=== PATIENT | male | born 1955 | race Caucasian/White ===

== ENCOUNTER → 2016-12-31 | Day surgery (SDC) | payer OTHER ==
[~2016-12-31] VITALS: Ht 175.3 cm; Wt 78.4 kg
[~2016-12-31] MED LIST: ALBINS/ INH; ALBU0.08 INH; ALPR-411 PO; AMT25 PO; ASPCH81X PO; ATOR-26 PO; ATR25 PO; ATRIN INH; BUPR-79 PO; CHOL4POW11 PO; CIPR-255 PO; COLE1TAB5 PO; CRFUDL PO; CTP1 PO; CTP1CL PO; DEXA4INJ38 IM; DEXAMETHASONE; DEXTROSE 50% 50 ML SYR ONE; DIPH-416 PO; ENT3 PO; FERR325T PO; FLUC100T4 PO; FLUO20CA34 PO; FLUO20CA36 PO; FLUT1INH PO; HYD10 PO; HYDR-3124 PO; HYDR-3126 PO; Humalog SQ; INSDGI SC; INSU100I SC; INSUINJ5 SC; IPRASOL4 INH; ISOS60TA25 PO; LEVO-459 PO; LIDOCAINE HCL 2% 2 ML VIAL (20MG/ML) ONE; LISI-729 PO; LMTHP PO; LPR50X PO; MAGN64TA4 PO; MCRK20 PO; MESA1CAP2 PO; METO100T14 PO; METO50TA16 PO; MGNO400 PO; MIRT30TA PO; MIRT30TA2 PO; MISCCAP80 PO; MOME220A INH; NYSS/ PO; NYSS5 PO; OXYC-57 PO; OXYC7.5T62 PO; OXYC7.5T66 PO; PANC24002 PO; PANC6000 PO; PANT40TA PO; POTA1POW PO; POTA20TA13 PO; PPTBS PO; PROPOFOL IV EMULSION 10 MG/ML 20 ML VIAL IV ONE; RANI150T3 PO; RMR15 PO; SERT25TA PO; SLWMEC PO; SODIUM CHLORIDE 0.9% 500ML 500 ML IV ONE; SPRIN/30 INH; SULF-183 PO; TIOTCAP INH; VANC1CAP3 PO; VANC5CAP PO; VENL75CA PO; VNTHFA/IN INH
[2016-12-31 14:50] VITALS: Ht 175.3 cm; Wt 78.4 kg
--- NOTE | 2016-12-31 14:56 | Endo History and Physical ---
History & Physical Date of Service: Dec 31, 2016. Chief Complaint: Diarrhea, chest pain Referring Physician: History of Present Illness Diarrhea, chest pain Past Medical History Diabetes, Angioplasty/Stent, Endocrine Disorder, Gastrointestinal Disorder, Anxiety, Reflux, High Cholesterol, Heart Disease, Hypertension, COPD, Other, Depression, IN Past Surgical History Hx Cardiac Surgery: Yes (MULTIPLE HEART CATHS, 2 STENTS (2000 AND 2002)) Hx Internal Defibrillator: No Hx Pacemaker: No Hx Abdominal Surgery: No Hx Post-Op Nausea and Vomiting: No Hx Cancer Surgery: No Hx Thoracic Surgery: No Hx Orthopedic: Yes (RT ACL REPAIR, LT ELBOW CLOSED REDUCTION) Hx Urinary Tract Surgery: No Social History Smoking Status: Current Every Day Smoker Hx Substance Use: No Hx Alcohol Use: Yes (WEEKENDS/SOCIAL) Allergies Coded Allergies: Azathioprine (Verified Adverse Reaction, Unknown, RENAL COMPLICATIONS, 12/31) Current Medications Reported Home Medications Medications Dose Route/Sig Max Daily Dose Days Date Category Dose Instructions Xanax (Alprazolam) 0.5 Mg Tab 0.5 Mg PO HS PRN 04/08/16 Reported Duoneb (Ipratropium-Albuterol) 3 Ml Nebu 1 Treatment INH Q6H PRN 04/08/16 Reported Spiriva Handihaler (Tiotropium [place]) 18 Mcg/ Aerp 1 Cap INH QAM 04/08/16 Reported Asmanex 120 Metered Doses (Mometasone Furoate) 220 Mcg/ Aer 2 Puff INH QAM 04/08/16 Reported Zestril (Lisinopril) 5 Mg Tab 5 Mg PO QAM 04/08/16 Reported Imdur Ext Rel (Isosorbide Mononitrate) 60 Mg Ertab 60 Mg PO QAM 04/08/16 Reported Lopressor (Metoprolol Tartrate) 100 Mg Tab 100 Mg PO BID 04/08/16 Reported Aspirin Chewable (Aspirin) 81 Mg Chew 81 Mg PO QAM 04/08/16 Reported Protonix (Pantoprazole Sodium) 40 Mg Tab 40 Mg PO BID 04/08/16 Reported Colestipol Hcl 1 Gm Tab 2 Tab PO BID 04/08/16 Reported Lantus (Insulin Glargine) Vial 10-20 Units SC HS 04/08/16 Reported Apidra (Insulin Glulisine) 100 Unit/Ml Inj 5 Unit SC BID 04/08/16 Reported TAKES AT LUNCH AND DINNER Atrovent Hfa (Ipratropium [place]) 200 Puffs/3400 Mcg Aers 2 Puffs INH QID PRN 04/08/16 Reported Proventil 0.083% 2.5MG/3ML (Albuterol Sulfate) Nebu 2.5 Mg INH QID PRN 04/08/16 Reported Delzicol (Mesalamine) 400 Mg Cap 2 Cap PO TID 04/08/16 Reported Cortef (Hydrocortisone) 10 Mg Tab 2 Tab PO BID 04/08/16 Reported Lomotil (Diphenoxylate HCl/Atropine) Tab 1 Tab PO TID PRN 04/08/16 Reported Effexor Xr (Venlafaxine Hcl) 75 Mg Cap 1 Cap PO QAM 30 04/08/16 Reported Zoloft (Sertraline HCl) 25 Mg Tab 25 Mg PO QAM 04/08/16 Reported Zantac (Ranitidine HCl) 150 Mg Tab 150 Mg PO BID 04/08/16 Reported Physical Exam General Appearance: WD/WN, no apparent distress, + mild distress Respiratory/Chest: Auscultation: breath sounds normal Cardiovascular: Heart Auscultation: RRR Abdomen: Bowel Sounds: normal Assessment and Plan EGD/cscopy
--- NOTE | 2016-12-31 16:42 | GI REPORT ---
Procedure Date: 12/31/2016 2:53 PM Procedure: Upper GI endoscopy Indications: Heartburn Medicines: See the Anesthesia note for documentation of the administered medications Complications: No immediate complications. Estimated Blood Loss: Estimated blood loss: none. Procedure: Pre-Anesthesia Assessment: - ASA Grade Assessment: III - A patient with severe systemic disease. After obtaining informed consent, the endoscope was passed under direct vision. Throughout the procedure, the patient's blood pressure, pulse, and oxygen saturations were monitored continuously. The scope was introduced through the mouth, and advanced to the second part of duodenum. The upper GI endoscopy was accomplished without difficulty. The patient tolerated the procedure well. Findings: The examined esophagus was normal. The stomach was normal. The examined duodenum was normal. Biopsies done from duodenum. Recommendation: - Discharge patient to home. Maggi Keith M.D. Maggi Keith MD 12/31/2016 4:42:52 PM This report has been signed electronically. Note Initiated On: 12/31/2016 2:53 PM I attest to the content of the Intraoperative Record and orders documented therein, exceptions below
--- NOTE | 2016-12-31 16:45 | Discharge Instructions ---
Endoscopy Patient Instructions Date / Procedure(s) Performed Dec 31, 2016. Colonoscopy, EGD Allergy Information Coded Allergies: Azathioprine (Verified Adverse Reaction, Unknown, RENAL COMPLICATIONS, 12/31) Discharge Date / Findings Dec 31, 2016. Fissure in cecum, suggestive of collagenous colitis Medication Instructions Stopped Medication(s): COLESTIPOL. Restart Stopped Medication(s): Resume colestipol Provider Instructions Activity Restrictions - No exercising or heavy lifting for 24 hours. - Do not drink alcohol the day of the procedure. - Do not drive a car or operate machinery until the day after the procedure. - Do not make any important decisions or sign important papers in 24 hours after the procedure. Following Day: - Return to full activity which may include returning to work/school. Diet Start your diet with liquids and light foods (jello, soup, juice, toast). Then eat your usual diet if not nauseated. Treatment For Common After Affects For mild abdominal pain, bloating, or excessive gas: - Rest - Eat lightly - Lie on right side Follow-Up Information Follow-up with DR. MONTALVO as scheduled Anesthesia Information What You Should Know You have had a procedure that required some medicine to reduce anxiety and discomfort. This treatment is called moderate sedation. After receiving the treatment, you may be sleepy, but you will be able to breathe on your own. The effects of the treatment may last for several hours. Follow these instructions along with Activity/Diet recommendations noted above: * Do NOT do anything where dizziness or clumsiness would be dangerous. * Rest quietly at home today, then you can be up and about tomorrow. * Have a responsible person stay with you the rest of today. * You may have had an I.V. today. If so, you may take the dressing off later today. Recommendations Call your doctor if: * Trouble breathing * Continuous vomiting for more than 24 hours * Temperature above 101 degrees * Severe abdominal pain or bloating * Pain not relieved by pain medicine ordered * There is increased drainage or redness from any incision * A large amount of rectal bleeding greater than 2-3 tablespoons. (If you had a polyp/s removed or have hemorrhoids, a small amount of blood - from the rectum is to be expected.) * You have any unanswered questions or concerns. IN THE EVENT OF A SERIOUS EMERGENCY, GO TO THE NEAREST EMERGENCY ROOM Your discharge instructions were prepared by provider Maggi Hood. Patient Instructions Signature Page Nuno Urbina Patient (or Guardian) Signature/Date: I have read and understand the instructions given to me by my caregivers. Caregiver/RN/Doctor Signature/Date: The above-named patient and/or guardian has received patient instructions on this date. + Original Patient Signature Page (only) stays with chart. Please make copy for patient.
--- NOTE | 2016-12-31 17:00 | Anesthesiology Progress Note ---
Anesthesia Post Op Note Date & Time Dec 31, 2016 at 16:59 Vital Signs Pain Intensity: 3 Vital Signs Past 12 Hours Date Time Temp Pulse Resp B/P Pulse Ox O2 Delivery O2 Flow Rate FiO2 12/31/16 16:47 64 18 173/84 98 Room Air 12/31/16 16:29 63 18 133/76 98 Room Air 12/31/16 14:56 36.4 72 18 183/89 97 Room Air Notes Mental Status: alert / awake / arousable, participated in evaluation Pt Amnestic to Procedure: Yes Nausea / Vomiting: adequately controlled Pain: adequately controlled Airway Patency, RR, SpO2: stable & adequate BP & HR: stable & adequate Hydration State: stable & adequate Anesthetic Complications: no major complications apparent
[2016-12-31 17:19] VITALS: BP 170/82; PULSE 62; O2SAT 95
[2017-01-03 00:36] LABS: O&P GIARDIA AG NOT DETECTED (NOT DETECTED)
== END | disposition home or self-care (01) ==
LOC: C.GI 14:02
PROVIDERS: ATTEND Internal Medicine Gastroenterology
DX: R19.7 Diarrhea, unspecified (principal); K52.832 Lymphocytic colitis; R07.9 Chest pain, unspecified; E11.9 Type 2 diabetes mellitus without complications; I51.9 Heart disease, unspecified; I10 Essential (primary) hypertension; F17.200 Nicotine dependence, unspecified, uncomplicated; K21.9 Gastro-esophageal reflux disease without esophagitis; E78.00 Pure hypercholesterolemia, unspecified; J44.9 Chronic obstructive pulmonary disease, unspecified; F32.9 Major depressive disorder, single episode, unspecified; I25.2 Old myocardial infarction; Z98.61 Coronary angioplasty status; Z79.82 Long term (current) use of aspirin; Z79.4 Long term (current) use of insulin

== ENCOUNTER 2017-02-19 09:38 | Inpatient (IN) | payer OTHER ==
[~2017-02-19] VITALS: Ht 175.3 cm; Wt 71.2 kg
[~2017-02-19 09:38] MED LIST changes: -ALBINS/ INH; -ALPR-411 PO; -AMT25 PO; -ASPCH81X PO; -ATOR-26 PO; -ATR25 PO; -BUPR-79 PO; -CHOL4POW11 PO; -CIPR-255 PO; -CRFUDL PO; -CTP1 PO; -CTP1CL PO; -DEXA4INJ38 IM; -DEXAMETHASONE; -DEXTROSE 50% 50 ML SYR ONE; -ENT3 PO; -FERR325T PO; -FLUC100T4 PO; -FLUO20CA34 PO; -FLUO20CA36 PO; -FLUT1INH PO; -HYD10 PO; -HYDR-3124 PO; -HYDR-3126 PO; -Humalog SQ; -INSU100I SC; -ISOS60TA25 PO; -LEVO-459 PO; -LIDOCAINE HCL 2% 2 ML VIAL (20MG/ML) ONE; -LISI-729 PO; -LMTHP PO; -LPR50X PO; -MAGN64TA4 PO; -MCRK20 PO; -METO50TA16 PO; -MGNO400 PO; -MIRT30TA PO; -MIRT30TA2 PO; -MISCCAP80 PO; -NYSS/ PO; -NYSS5 PO; -OXYC-57 PO; -OXYC7.5T62 PO; -OXYC7.5T66 PO; -PANC24002 PO; -PANC6000 PO; -POTA1POW PO; -POTA20TA13 PO; -PPTBS PO; -PROPOFOL IV EMULSION 10 MG/ML 20 ML VIAL IV ONE; -RANI150T3 PO; -RMR15 PO; -SLWMEC PO; -SODIUM CHLORIDE 0.9% 500ML 500 ML IV ONE; -SPRIN/30 INH; -SULF-183 PO; -VANC1CAP3 PO; -VANC5CAP PO; -VNTHFA/IN INH
[2017-02-19 15:04] VITALS: BP 158/101; PULSE 66; TEMP 36.4; O2SAT 99
[2017-02-19] MEDS ORDERED: ACETAMINOPHEN 325 MG TAB PO PRN (15:30)
[2017-02-19] MEDS ORDERED: BUPR-79 PO (15:41)
[2017-02-19] MEDS ORDERED: VNTHFA/IN INH (15:41)
[2017-02-19] MEDS ORDERED: Humalog SQ (15:41)
[2017-02-19] MEDS ORDERED: CHOL4POW11 PO (15:41)
[2017-02-19 16:00] VITALS: BP 148/92; PULSE 64
--- NOTE | 2017-02-19 16:12 | Gastrointestinal Consultation ---
Gastrointestinal Consultation Date of Consultation: Feb 19, 2017 Consulting Physician: Say Reason for Consultation: diarrhea History of Present Illness Patient is a 61 year old male with past medical history significant for adrenal insufficiency, hypomagnesemia, osteonecrosis, ulcerative colitis, collagenous colitis HTN, COPD, hyperlipidemia, depression, anxiety who is a direct admission from Dr. Keith. At baseline, patient moves his bowels 8-10x daily with 3 episodes of nocturnal diarrhea. Stools are always liquid. Has recently had a flare of his symptoms. Stool for c.diff was negative on 02/17/17. He is currently moving bowels 10-12 times daily with 3-4 episodes of nocturnal diarrhea. Pt is colorblind but looks at stools, no BRB or black stools. Stools have been green/brown w/ odor. He mentions a 30lb weight loss over the past months suffering from these loose stools. There is no change in his abdominal pain. Mild RLQ pain that is relieved with BM. Denies any upper abdominal pain. No upper abdominal pain after PO intake. Reports nausea. No vomiting. Currently on steroids, lomotil and cholestyramine. Recently treated empirically for c.diff although no positive result. +tobacco use 1PPD + ETOH use 4-5 beers almost nightly + ASA use + steroid use Colonoscopy 12/31/16: fissure in the cecum, consistent with collagenous colitis, 2 mm polyp in ascending colon Family History Cancer Diabetes mellitus Heart disease Hypertension Social History Smoking Status: Current Every Day Smoker Alcohol Use: none Marital Status: Housing Status: lives with family Allergies Coded Allergies: Azathioprine (Verified Adverse Reaction, Unknown, RENAL COMPLICATIONS, 12/31) Current Medications Home Meds and Scripts Medications Dose Route/Sig Max Daily Dose Days Date Category Ventolin Hfa (Albuterol) 200 Puffs/35189 Mcg Aers 3-4 Puffs INH QID 02/19/17 Reported Breo Ellipta (Fluticasone Furoate-Vilanterol) 1 Inh Inh 1 Inha PO DAILY 02/19/17 Reported Lipitor (Atorvastatin Calcium) 80 Mg Tab 1 Tab PO DAILY 30 02/19/17 Reported [Humalog] 5 Units SQ BID 02/19/17 Reported Wellbutrin Sr (Bupropion HCl) 150 Mg Ertab 150 Mg PO DAILY 02/19/17 Reported Cortef (Hydrocortisone) 10 Mg Tab 1 Tab PO PM 02/19/17 Reported Questran (Cholestyramine) 4 Gm Pow 4 Gm PO QID 02/19/17 Reported Dexamethasone Sodium Phos (Dexamethasone Sod Phos) 4 Mg/Ml Inj 1 Dose IM DIRECTED 02/19/17 Reported Xanax (Alprazolam) 0.5 Mg Tab 0.5 Mg PO HS PRN 04/08/16 Reported Duoneb (Ipratropium-Albuterol) 3 Ml Nebu 1 Treatment INH QID 04/08/16 Reported Spiriva Handihaler (Tiotropium [place]) 18 Mcg/ Aerp 1 Cap INH QAM 04/08/16 Reported Zestril (Lisinopril) 5 Mg Tab 5 Mg PO QAM 04/08/16 Reported Imdur Ext Rel (Isosorbide Mononitrate) 60 Mg Ertab 60 Mg PO QAM 04/08/16 Reported Lopressor (Metoprolol Tartrate) 100 Mg Tab 100 Mg PO BID 04/08/16 Reported Aspirin Chewable (Aspirin) 81 Mg Chew 81 Mg PO QAM 04/08/16 Reported Protonix (Pantoprazole Sodium) 40 Mg Tab 40 Mg PO BID 04/08/16 Reported Lantus (Insulin Glargine) Vial 10-20 Units SC HS 04/08/16 Reported Atrovent Hfa (Ipratropium [place]) 200 Puffs/3400 Mcg Aers 2 Puffs INH QID PRN 04/08/16 Reported Proventil 0.083% 2.5MG/3ML (Albuterol Sulfate) Nebu 2.5 Mg INH QID PRN 04/08/16 Reported Cortef (Hydrocortisone) 10 Mg Tab 2 Tab PO DAILY 04/08/16 Reported Lomotil (Diphenoxylate HCl/Atropine) Tab 1 Tab PO TID PRN 04/08/16 Reported Zoloft (Sertraline HCl) 25 Mg Tab 100 Mg PO QAM 04/08/16 Reported Zantac (Ranitidine HCl) 150 Mg Tab 150 Mg PO BID 04/08/16 Reported Review of Systems Constitutional: No chills, No fever Respiratory: No cough Cardiac: No chest pain Abdomen: + diarrhea (even has to pass stool with urination), No GI bleeding, No constipation, No nausea, No pain, No vomiting Physical Exam Date Time Temp Pulse Resp B/P Pulse Ox O2 Delivery O2 Flow Rate FiO2 02/19/17 15:04 36.4 66 18 158/101 99 Room Air General Appearance: + mild distress (patient is tearful - reports his nephew just past away and he needs to get better for an international flight for ) Eyes: PERRL ENT: hearing grossly normal Neck: supple, trachea midline Respiratory/Chest: lungs clear, normal breath sounds, no respiratory distress, no accessory muscle use Cardiovascular: regular rate, rhythm, no edema, no gallop, no JVD, no murmur Abdomen: normal bowel sounds, soft, no organomegaly, no pulsatile mass, + tenderness (slight tenderness in RLQ, worse with palpation) Neurologic/Psych: alert, normal mood/affect, oriented x 3 Skin: normal color, no jaundice, warm/dry, no rash Laboratory Results Last 24 Hours Test 02/19/17 15:28 Impression Patient is a 61 year old male with acute worsening of chronic diarrhea with hx of collagenous colitis and ulcerative colitis on cholestyramine four times daily , lomotil three times daily and 30 mg of steroids with negative c.diff on . Differentials include microscopic colitis, infectious colitis, collagenous colitis, ulcerative colitis flare. We will proceed with colonoscopy tomorrow. Plan IVF for hydration Stool culture, O&P Clear liquid diet Colonoscopy tomorrow IV octreotide 50 mcg TID NPO after midnight continue outpatient dosing of hydrocortisone 20mg AM 10mg HS I have seen and examined the patient with Tiesha Hsu on 02/19 whose note reflects our findings and plan. Patient with a long history of microscopic colitis and steroid dependence with resultant adrenal insufficiency. On-going diarrhea despite steroids, colestid, and lomotil. Will do a colonoscopy to re-evaluate. He has a lot of stress with personal issues at home raising concern for possible superimposed IBS. Recent infectious w/u negative.
[2017-02-19] MEDS ORDERED: LEVALBUTEROL/IPRATROPIUM NEB INH PRN (16:15)
[2017-02-19] MEDS ORDERED: DEXTROSE 50% 50 ML SYR IV PRN (16:15)
[2017-02-19] MEDS ORDERED: ALPRAZOLAM 0.5 MG TAB PO PRN (16:15)
[2017-02-19] MEDS ORDERED: CLONIDINE HCL 0.1 MG TAB PO PRN (16:15)
[2017-02-19] MEDS ORDERED: IPRATROPIUM BROMIDE NEB SOLN 0.02% 2.5 ML VIAL INH PRN (16:15)
[2017-02-19] MEDS ORDERED: PHARMACY GLYCEMIC MGMT CONSULT PRN (16:15)
[2017-02-19] MEDS ORDERED: LEVALBUTEROL 1.25MG/0.5ML NEB INH PRN (16:15)
[2017-02-19] MEDS ORDERED: GLUCAGON FOR INJ 1 MG VIAL SQ PRN (16:15)
[2017-02-19] MEDS ORDERED: IPRATROPIUM BROMIDE NEB SOLN 0.02% 2.5 ML VIAL INH SCH (16:15)
[2017-02-19] MEDS ORDERED: GLUCOSE 40% GEL 15 GM TUBE PO PRN (16:15)
[2017-02-19] MEDS ORDERED: GLUCOSE 10 TABS/TUBE PO PRN (16:15)
--- NOTE | 2017-02-19 16:18 | History and Physical ---
History & Physical Date & Time of Service: Feb 19, 2017 at 16:18 Chief Complaint: Colitis Primary Care Physician: Tony Lin D.O. History of Present Illness Source: patient, family, clinic records 61 year old male with history of Ulcerative Colitis, Chronic Intermittent Prednisone Use, Adrenal Insufficiency, CAD, DM 2 on Insulin, HTN, COPD, presenting with persistent abdominal pain and diarrhea x 2 weeks at least Follows with Dr. Keith for Primary Care and Dr. Lin for PCP. Patient reports at least 2 weeks history of lower abdominal cramping and non bloody diarrhea. No nausea/vomiting, fever/chills. Symptoms reminiscent of Ulcerative Colitis flare up. He was advised to change Colestipol to powder form recently but with no improvement of symptoms. Appetite has been fair. Patient reports generalized malaise since symptoms started. He was advised by Dr. Keith to be directly admitted to the hospital. On exam, patient alert and conversant, but very emotional because of recent in the family and undergoing medical conditions. Patient reassured, and patient was grateful. Reports intermittent lower abdominal pain and continuous diarrhea. No chest pain, dyspnea, cough. No other symptoms. Past Medical/Surgical History Medical Problems: (1) Adrenal insufficiency Status: Chronic (2) ARF (acute renal failure) Status: Resolved (3) Diabetes Status: Chronic (4) Hypercholesteremia Status: Chronic (5) Hypertension Status: Chronic Surgical Problems: (1) H/O percutaneous transluminal coronary angioplasty Status: Resolved (2) Stented coronary artery Status: Resolved Family History Cancer Diabetes mellitus Heart disease Hypertension Social History Smoking Status: Current Every Day Smoker Alcohol Use: few beers/week Drug Use: none Marital Status: Housing status: lives alone Immunizations History of Influenza Vaccine: Yes Influenza Vaccine Date: Aug 20, 2013 History of Tetanus Vaccine?: Yes Tetanus Immunization Date: Aug 20, 2013 History of Pneumococcal: Yes History of Hepatitis B Vaccine: No Allergies Coded Allergies: Azathioprine (Verified Adverse Reaction, Unknown, RENAL COMPLICATIONS, 12/31) Home Medications Scheduled Albuterol Hfa (Ventolin Hfa), 3-4 PUFFS INH QID Aspirin (Aspirin Chewable), 81 MG PO QAM Atorvastatin (Lipitor), 1 TAB PO DAILY Bupropion (Wellbutrin Sr), 150 MG PO DAILY Cholestyramine (Questran), 4 GM PO QID Dexamethasone Sod Phos (Dexamethasone Sodium Phos), 1 DOSE IM DIRECTED Fluticasone Furoate-Vilanterol (Breo Ellipta), 1 INHA PO DAILY Hydrocortisone (Cortef), 2 TAB PO DAILY Hydrocortisone (Cortef), 1 TAB PO PM Insulin Glargine (Lantus), 10-20 UNITS SC HS Ipratropium-Albuterol (Duoneb), 1 TREATMENT INH QID Isosorbide Mononitrate Ext Rel (Imdur Ext Rel), 60 MG PO QAM Lisinopril (Zestril), 5 MG PO QAM Metoprolol Tartrate (Lopressor) (Lopressor), 100 MG PO BID Pantoprazole (Protonix), 40 MG PO BID Ranitidine Hcl (Zantac), 150 MG PO BID Sertraline (Zoloft), 100 MG PO QAM Tiotropium [place] (Spiriva Handihaler), 1 CAP INH QAM [Humalog], 5 UNITS SQ BID Scheduled PRN Albuterol Soln (Proventil 0.083% 2.5MG/3ML), 2.5 MG INH QID PRN for Shortness of Breath Alprazolam (Xanax), 0.5 MG PO HS PRN for Sleep Diphenoxylate/Atropine (Lomotil), 1 TAB PO TID PRN for Diarrhea Ipratropium [place] (Atrovent Hfa), 2 PUFFS INH QID PRN for Shortness of Breath Review of Systems Constitutional- no fever; (+) weight loss Eyes- no acute visual changes ENT- no sinus drainage; no pharyngitis Pulmonary- no cough, no wheezing, no shortness of breath Cardiac- no chest pain, no palpitations, no orthopnea, no dependent edema GI- (+) as noted above - no dysuria, no hematuria Musculoskeletal- no arthralgias, no myalgias Derm- no rashes, no new skin lesions, no changing skin lesions Hematologic- no unusual bruising, no unusual bleeding Lymphatics- no adenopathy Endocrine- no polyuria or polydipsia; no heat or cold intolerance Neuro- no headaches, no focal neurologic symptoms Psych- no anxiety, no depression Physical Exam Vital Signs Date Time Temp Pulse Resp B/P Pulse Ox O2 Delivery O2 Flow Rate FiO2 02/19/17 16:00 64 148/92 02/19/17 15:04 36.4 66 18 158/101 99 Room Air General Appearance: WD/WN, no apparent distress Head: normocephalic, atraumatic Eyes: normal inspection, PERRL, sclerae normal ENT: normal ENT inspection, hearing grossly normal, TMs normal, pharynx normal Neck: supple, no adenopathy, thyroid normal, no JVD, trachea midline Respiratory/Chest: chest non-tender, lungs clear, normal breath sounds, no respiratory distress, no accessory muscle use Cardiovascular: regular rate, rhythm, no edema, no JVD, no murmur, normal peripheral pulses Abdomen/GI: normal bowel sounds, non tender, soft Back: normal inspection, no CVA tenderness Extremities/Musculoskelatal: normal inspection, no calf tenderness, no pedal edema, normal range of motion Neurologic/Psych: business support 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 II-XII nml as tested, no motor/sensory deficits, alert, normal mood/affect, normal reflexes, oriented x 3, + pertinent finding (no suicidal ideations) Skin: normal color, warm/dry, no rash Diagnostics Laboratory Results Results Past 24 Hours Test 02/19/17 15:28 Range/Units Microbiology Results 02/19/17 Shiga Toxin Test, Ordered Pending 02/19/17 Stool Culture, Ordered Pending 02/19/17 C.difficile Toxin B Gene (PCR), Barbi Batch Pending Impression Assessment and Plan 61 year old male with history of Ulcerative Colitis, Chronic Intermittent Prednisone Use, Adrenal Insufficiency, CAD, DM 2 on Insulin, HTN, COPD, presenting with persistent abdominal pain and diarrhea x 2 weeks at least POSSIBLE ULCERATIVE COLITIS FLARE UP check stool cultures and C diff Stool test IV fluids, clear liquids may need to increase Hydrocortisone dose will consult GI ADRENAL INSUFFICIENCY likely from chronic intermittent prednisone courses BP stable continue usual Hydrocortisone 20mg in am, 10mg in PM may need to increase dose in light of Ulcerative colitis flare up will discuss with GI WORSENING DEPRESSION recent in the family, medical condition will consult Psych HISTORY OF CAD no cardiac symptoms continue Aspirin, Metoprolol, Lisinopril, ISMN hold Statin DM 2 usually on Lantus and Apidra ISS for now while on clear liquids Pharm consult HTN continue Aspirin, Metoprolol, Lisinopril, ISMN PRN Clonidine COPD not in exacerbation continue Spiriva, Breo PRN nebs Full Code SCDs for DVT prophylaxis as patient has UC flare Disposition anticipate to d/c home when medically stable VTE Prophylaxis VTE Risk Assessment Done? Y/N: Yes Risk Level: Moderate
[2017-02-19] MEDS ORDERED: PATIENT'S HEIGHT AND/OR WEIGHT NEEDED SCH (16:30)
[2017-02-19 16:33] LABS: BASO % 0.2 %; BASO ABS # 0.02 K/uL (0-0.2); COMPLETE YES; EOS % 1.6 %; IG% 1.2 %; LYMPH % 26.7 %; LYMPH ABS # 2.79 K/uL (1.2-3.4); MEAN CELL VOLUME 86.3 fL (80-100); MEAN CORPUSCULAR HGB CONC 35.9 g/dl (32-36); MEAN PLATELET VOLUME 10.5 fL (7.4-10.4); MONO % 9.4 %; NEUT % 60.9 %; PLATELET COUNT 158 K/uL (130-400); WHITE BLOOD COUNT 10.45 K/uL (4.8-10.8)
[2017-02-19] MEDS: SODIUM CHLORIDE 0.9% 1000ML 1,000 ML IV SCH (16:40)
[2017-02-19 16:59] VITALS: Ht 175.3 cm; Wt 71.2 kg
[2017-02-19] MEDS ORDERED: ALBUT/IPRATROP 3MG/0.5MG NEB 3 ML VIAL INH SCH (17:00)
[2017-02-19] MEDS: MoRPHine SULFATE 4 MG/ML 1 ML CARP\\VIAL IV PRN ×2 (17:06→21:13)
[2017-02-19 17:08] LABS: BUN/CREATININE RATIO 5.5 (10-20); CALCIUM 9.3 mg/dl (8.5-10.1); CREATININE 1.1 mg/dl (0.60-1.40); MAGNESIUM 1.5 mg/dl (1.8-2.4); POTASSIUM 4.4 mmol/L (3.5-5.1)
[2017-02-19] MEDS: CHOLESTYRAMINE LIGHT 4 GM PKT PO SCH ×2 (17:12→21:18)
[2017-02-19] MEDS ORDERED: BISACODYL 5 MG TABEC PO ONE (17:30)
[2017-02-19] MEDS ORDERED: POLYETHYLENE (MIRALAX) 17 GM PACK PO ONE ×2 (17:30→21:00)
[2017-02-19] MEDS: INSULIN ASPART 100 UNITS/ML 3 ML PEN SC SCH ×2 (18:35→21:09)
[2017-02-19] MEDS ORDERED: MAGNESIUM SULFATE 1GM / D5W 1 GM in PREMIXED IN D5W 100 ML IV ONE (19:00)
[2017-02-19] MEDS ORDERED: HYDROCORTISONE 10 MG TAB PO SCH (21:00)
[2017-02-19] MEDS ORDERED: INSULIN GLARGINE SOLOSTAR 100 UNITS/ML 3 ML PEN SC ONE (21:00)
[2017-02-19] MEDS ORDERED: ALBUTEROL 0.083% NEBU SOLN 3 ML VIAL INH SCH (21:00)
[2017-02-19 21:15] VITALS: BP 147/89; PULSE 73
[2017-02-19] MEDS: RANITIDINE HCL 150 MG TAB PO SCH (21:17)
[2017-02-19] MEDS: METOPROLOL TARTRATE 100 MG TAB PO SCH (21:18)
[2017-02-19] MEDS: PANTOprazole SOD 40 MG TAB PO SCH (21:18)
[2017-02-19] MEDS ORDERED: PNEUMOCOCCAL ADMINISTRATION CHARGE ONE (21:45)
[2017-02-19] MEDS ORDERED: PNEUMOCOCCAL POLYSACCHARIDES 25 MCG/0.5 ML VIAL/SYR IM. ONE (21:45)
[2017-02-19 23:13] VITALS: BP 138/76; PULSE 67; TEMP 36.6; O2SAT 93
[2017-02-20] VITALS (8 sets, daily range): BP systolic 116–143; BP diastolic 70–80; PULSE 53–88; TEMP 36.3–36.6; O2SAT 93–99
[2017-02-20] MEDS: MoRPHine SULFATE 4 MG/ML 1 ML CARP\\VIAL IV PRN ×6 (01:06→21:11)
[2017-02-20] MEDS: SODIUM CHLORIDE 0.9% 1000ML 1,000 ML IV SCH ×4 (01:06→23:45)
[2017-02-20] MEDS ORDERED: INSULIN ASPART 100 UNITS/ML 3 ML PEN SC ONE (02:00)
[2017-02-20] MEDS: INSULIN ASPART 100 UNITS/ML 3 ML PEN SC SCH ×5 (06:00→21:26)
[2017-02-20 06:25] LABS: BASO % 0.3 %; BASO ABS # 0.02 K/uL (0-0.2); COMPLETE YES; EOS % 1.8 %; HEMATOCRIT 41.6 % (42-52); IG% 0.8 %; LYMPH % 20.9 %; LYMPH ABS # 1.64 K/uL (1.2-3.4); MEAN CELL VOLUME 89.5 fL (80-100); MEAN CORPUSCULAR HEMOGLOBIN 30.5 pg (25-34); MEAN CORPUSCULAR HGB CONC 34.1 g/dl (32-36); MEAN PLATELET VOLUME 10.3 fL (7.4-10.4); MONO % 8.9 %; NEUT % 67.3 %; PLATELET COUNT 149 K/uL (130-400); RED BLOOD COUNT 4.65 M/uL (4.7-6.1); WHITE BLOOD COUNT 7.83 K/uL (4.8-10.8)
[2017-02-20 06:33] LABS: ESTIMATED AVERAGE GLUCOSE 154 mg/dl; HA1C FLAG Normal (Normal)
[2017-02-20 06:58] LABS: BUN/CREATININE RATIO 5.2 (10-20); CALCIUM 8.5 mg/dl (8.5-10.1); MAGNESIUM 1.8 mg/dl (1.8-2.4); POTASSIUM 4.3 mmol/L (3.5-5.1)
[2017-02-20] MEDS: RANITIDINE HCL 150 MG TAB PO SCH ×2 (08:45→21:20)
[2017-02-20] MEDS: CHOLESTYRAMINE LIGHT 4 GM PKT PO SCH ×4 (08:45→21:20)
[2017-02-20] MEDS: TIOTROPIUM BROMIDE 5 PUFF/90 MCG INH INH SCH (08:46)
[2017-02-20] MEDS ORDERED: BuPROPion SR 150 MG TABCR PO SCH (09:00)
[2017-02-20] MEDS: METOPROLOL TARTRATE 100 MG TAB PO SCH ×2 (09:00→21:00)
[2017-02-20] MEDS ORDERED: SERTRALINE HCL 50 MG TAB PO SCH (09:00)
--- NOTE | 2017-02-20 12:20 | Pharmacy Progress Note ---
Glycemic Control Intl Consult Date of Service Feb 20, 2017. Scope Glycemic Pharmacist consulted for glycemic control and to write orders per [facility] inpatient glycemic control protocol Objective Weight (Kilograms): 71.200 Accuchecks BSG (last 24hrs): Test 02/19/17 16:24 02/19/17 16:46 02/19/17 20:38 02/19/17 23:40 Random Glucose 95 mg/dl (70-99) Bedside Glucose 91 mg/dl (70-99) 255 mg/dl (70-99) 65 mg/dl (70-99) Test 02/20/17 00:00 02/20/17 03:53 02/20/17 06:05 Bedside Glucose 78 mg/dl (70-99) 89 mg/dl (70-99) 83 mg/dl (70-99) Random Glucose 89 mg/dl (70-99) Laboratory Data (last 24hrs) Test 02/19/17 16:24 02/20/17 06:05 Anion Gap 11.0 mmol/L 7.0 mmol/L BUN/Creatinine Ratio 5.5 5.2 Blood Urea Nitrogen 6 mg/dl 5 mg/dl Creatinine 1.10 mg/dl 1.00 mg/dl Potassium Level 4.4 mmol/L 4.3 mmol/L Sodium Level 137 mmol/L 140 mmol/L White Blood Count 10.45 K/uL 7.83 K/uL Red Blood Count 5.10 M/uL 4.65 M/uL Hemoglobin 15.8 g/dL 14.2 g/dL Hematocrit 44.0 % 41.6 % Mean Corpuscular Volume 86.3 fL 89.5 fL Mean Corpuscular Hemoglobin 31.0 pg 30.5 pg Mean Corpuscular Hemoglobin Concent 35.9 g/dl 34.1 g/dl Platelet Count 158 K/uL 149 K/uL Mean Platelet Volume 10.5 fL 10.3 fL Neutrophils (%) (Auto) 60.9 % 67.3 % Lymphocytes (%) (Auto) 26.7 % 20.9 % Monocytes (%) (Auto) 9.4 % 8.9 % Eosinophils (%) (Auto) 1.6 % 1.8 % Basophils (%) (Auto) 0.2 % 0.3 % Neutrophils # (Auto) 6.36 K/uL 5.27 K/uL Lymphocytes # (Auto) 2.79 K/uL 1.64 K/uL Monocytes # (Auto) 0.98 K/uL 0.70 K/uL Eosinophils # (Auto) 0.17 K/uL 0.14 K/uL Basophils # (Auto) 0.02 K/uL 0.02 K/uL Hemoglobin A1c 7.0 % HbA1c Test 02/20/17 06:05 Hemoglobin A1c 7.0 % (4.5-5.6) H Recent Pertinent Medications Outpatient Anti-diabetic Regimen: * Lantus 10-20 units SC qHS * Humalog 5 units with lunch and dinner * A1c = 7.0 % on 02/20/17 The patient is currently receiving: * Basal insulin: None * Correctional Insulin: Novolog Correction per scale ACHS Goal Range: Low 120 mg/dL - High 160 mg/dL Correction Factor: 35 mg/dL/unit * Prandial insulin: Per carb ratio of 1 unit per 15 grams CHO consumed Risk Factors for Insulin Resistance: * Steroids: Hydrocortisone 20 mg po qAM, 10 mg qPM (home dose) * Diet: T2DM/clear liquid Assessment & Plan ASSESSMENT: * ADA & AACE recommend a goal blood sugar range 140-180 mg/dl for the majority of critically ill & non-critically ill patients. However, more stringent targets may be selected in individual cases. 02/20/17 * 61 yo M with T2DM and adequate outpatient control per HbA1c * BSG increased from 91 to 255 mg/dL yesterday after pt consumed 78g CHO. May need to tighten CHO ratio, but as pt was NPO this AM and only ate 13 g CHO at lunch will leave for now. * BSG's decreased significantly overnight despite no Lantus administered in- house. 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 Will continue HS dosing but at significantly reduced amounts, with high BSG parameters * Will loosen correction factor for now 2nd BSG's decreasing overnight PLAN FOR INPATIENT GLYCEMIC CONTROL: * Basal insulin with LANTUS units SQ HS per BSG * 0 units for BSG < 140 mg/dL * 5 units for BSG 140-199 mg/dL * 10 units for BSG 200 mg/dL or greater * Correctional Insulin with NOVOLOG per scale ACHS or Q6hrs while NPO * Goal Range: Low 120 mg/dL - High 160 mg/dL * Loosen Correction Factor: 40 mg/dL/unit * Nutritional / Prandial insulin per carb ratio of 1 unit per 15 grams CHO consumed * Please note that the plan above was derived based on current level of insulin resistance and hospital stress. These recommendations are appropriate for inpatient admission only. Plan of care upon discharge will need to be reassessed to avoid potential outpatient hypo/hyperglycemia. Thank you.
[2017-02-20] MEDS ORDERED: LIDOCAINE HCL 2% 2 ML VIAL (20MG/ML) ONE (13:25)
[2017-02-20] MEDS ORDERED: PROPOFOL IV EMULSION 10 MG/ML 20 ML VIAL IV ONE (13:25)
--- NOTE | 2017-02-20 13:45 | Anesthesiology Progress Note ---
Anesthesia Post Op Note Date & Time Feb 20, 2017 at 13:45 Vital Signs Pain Intensity: 0 Vital Signs Past 12 Hours Date Time Temp Pulse Resp B/P Pulse Ox O2 Delivery O2 Flow Rate FiO2 02/20/17 13:27 61 20 134/79 96 Room Air 02/20/17 13:11 67 20 120/69 98 Room Air 02/20/17 12:37 36.6 53 20 141/80 98 Room Air 02/20/17 12:33 36.6 53 20 141/80 98 Room Air 02/20/17 10:02 97 Room Air 02/20/17 08:47 Room Air 02/20/17 07:52 36.5 58 20 132/74 97 Room Air Notes Mental Status: alert / awake / arousable, participated in evaluation Pt Amnestic to Procedure: Yes Nausea / Vomiting: adequately controlled Pain: adequately controlled Airway Patency, RR, SpO2: stable & adequate BP & HR: stable & adequate Hydration State: stable & adequate Anesthetic Complications: no major complications apparent Pt did well.
[2017-02-20] MEDS: ISOSORBIDE MONONITRATE 60 MG TABCR PO SCH (14:12)
[2017-02-20] MEDS: ASPIRIN 81 MG CHEW PO SCH (14:12)
[2017-02-20] MEDS: LISINOPRIL 5 MG TAB PO SCH (14:13)
[2017-02-20] MEDS: PANTOprazole SOD 40 MG TAB PO SCH ×2 (14:14→21:19)
[2017-02-20] MEDS: HYDROCORTISONE 10 MG TAB PO SCH ×2 (14:14→21:19)
--- NOTE | 2017-02-20 14:32 | Psychiatric Consultation ---
Consultation Date of Consultation Feb 20, 2017. Identifying Data Nuno Urbina is a 61-year-old male who currently lives in [place]. Mr. Urbina was admitted on 02/19/17 for abdominal pain and chronic diarrhea. Consult is by Dr. Rider for depression. Chief Complaint "too much has gone wrong". History of Present Illness Mr. Urbina states that he hasn't really ever thought about seeing a therapist but admittedly feels deflated after his nephew's in [place] last weekend. His sister's only child was a professional wood filler and suddenly of an NE at the age of 20. She is currently in [facility] [place] to "bring him home", meaning [place] where he is also from. Mr. Urbina' was diagnosed with breast cancer last year and has developed infections from surgeries and lost her job. Their disability was denied. 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 The are working with an commercial litigation attorney but he feels it's hopeless in the sense that it's a "racket" where commercial litigation attorney takes 25%. He admittedly stopped his Wellbutrin about a month ago as he didn't feel that it was helping. He is unsure how long he has been on his current dose of Zoloft and would prefer to be back on Prozac which helped him through a "rough time" many years ago. 22, no suicidal ideation Past Psychiatric History Current OP Treatment: no current treatment Prior OP Treatment: no prior treatment Access to a Gun: Yes Suicide Attempts: No Past Medication Trials as above per PCP/PA Past Medical/Surgical History (1) Coronary artery disease (2) Hypercholesteremia (3) Hypertension (4) Diabetes (5) Adrenal insufficiency (6) Stented coronary artery (7) H/O percutaneous transluminal coronary angioplasty Allergies Allergies: Coded Allergies: Azathioprine (Verified Adverse Reaction, Unknown, RENAL COMPLICATIONS, 12/31) Home Medications Scheduled Albuterol Hfa (Ventolin Hfa), 3-4 PUFFS INH QID Aspirin (Aspirin Chewable), 81 MG PO QAM Atorvastatin (Lipitor), 1 TAB PO DAILY Bupropion (Wellbutrin Sr), 150 MG PO DAILY Cholestyramine (Questran), 4 GM PO QID Dexamethasone Sod Phos (Dexamethasone Sodium Phos), 1 DOSE IM DIRECTED Fluticasone Furoate-Vilanterol (Breo Ellipta), 1 INHA PO DAILY Hydrocortisone (Cortef), 2 TAB PO DAILY Hydrocortisone (Cortef), 1 TAB PO PM Insulin Glargine (Lantus), 10-20 UNITS SC HS Ipratropium-Albuterol (Duoneb), 1 TREATMENT INH QID Isosorbide Mononitrate Ext Rel (Imdur Ext Rel), 60 MG PO QAM Lisinopril (Zestril), 5 MG PO QAM Metoprolol Tartrate (Lopressor) (Lopressor), 100 MG PO BID Pantoprazole (Protonix), 40 MG PO BID Ranitidine Hcl (Zantac), 150 MG PO BID Sertraline (Zoloft), 100 MG PO QAM Tiotropium [place] (Spiriva Handihaler), 1 CAP INH QAM [Humalog], 5 UNITS SQ BID Scheduled PRN Albuterol Soln (Proventil 0.083% 2.5MG/3ML), 2.5 MG INH QID PRN for Shortness of Breath Alprazolam (Xanax), 0.5 MG PO HS PRN for Sleep Diphenoxylate/Atropine (Lomotil), 1 TAB PO TID PRN for Diarrhea Ipratropium [place] (Atrovent Hfa), 2 PUFFS INH QID PRN for Shortness of Breath Family History Cancer Diabetes mellitus Heart disease Hypertension History of Suicide: No Psychiatric History: No Alcohol Use Alcohol Use In Past 12 Months: Yes ("a few" beers a week, occasional 4-5 in a night) Smoking Use Smoking Status: Current Every Day Smoker Substance History denied Personal History Lives in: 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 Examination Vital Signs Vital Signs Past 12 Hours Date Time Temp Pulse Resp B/P Pulse Ox O2 Delivery O2 Flow Rate FiO2 02/20/17 14:06 36.5 53 22 127/80 97 Room Air 02/20/17 13:27 61 20 134/79 96 Room Air 02/20/17 13:11 67 20 120/69 98 Room Air 02/20/17 12:37 36.6 53 20 141/80 98 Room Air 02/20/17 12:33 36.6 53 20 141/80 98 Room Air 02/20/17 10:02 97 Room Air 02/20/17 08:47 Room Air 02/20/17 07:52 36.5 58 20 132/74 97 Room Air Laboratory Results Last 24 Hours Test 02/19/17 16:24 02/19/17 16:46 02/19/17 20:38 02/19/17 21:40 White Blood Count 10.45 K/uL Red Blood Count 5.10 M/uL Hemoglobin 15.8 g/dL Hematocrit 44.0 % Mean Corpuscular Volume 86.3 fL Mean Corpuscular Hemoglobin 31.0 pg Mean Corpuscular Hemoglobin Concent 35.9 g/dl Platelet Count 158 K/uL Mean Platelet Volume 10.5 fL Neutrophils (%) (Auto) 60.9 % Lymphocytes (%) (Auto) 26.7 % Monocytes (%) (Auto) 9.4 % Eosinophils (%) (Auto) 1.6 % Basophils (%) (Auto) 0.2 % Neutrophils # (Auto) 6.36 K/uL Lymphocytes # (Auto) 2.79 K/uL Monocytes # (Auto) 0.98 K/uL Eosinophils # (Auto) 0.17 K/uL Basophils # (Auto) 0.02 K/uL RDW Standard Deviation 48.7 fL RDW Coefficient of Variation 15.2 % Immature Granulocyte % (Auto) 1.2 % Immature Granulocyte # (Auto) 0.13 K/uL Sodium Level 137 mmol/L Potassium Level 4.4 mmol/L Chloride Level 107 mmol/L Carbon Dioxide Level 19 mmol/L Anion Gap 11.0 mmol/L Blood Urea Nitrogen 6 mg/dl Creatinine 1.10 mg/dl Est Creatinine Clear Calc Drug Dose 70.6 ml/min Estimated GFR () 83.5 Estimated GFR (Non- 72.1 BUN/Creatinine Ratio 5.5 Random Glucose 95 mg/dl Calcium Level 9.3 mg/dl Phosphorus Level 3.0 mg/dl Magnesium Level 1.5 mg/dl Total Bilirubin 0.4 mg/dl Aspartate Amino Transf (AST/SGOT) 85 U/L Alanine Aminotransferase (ALT/SGPT) 57 U/L Alkaline Phosphatase 100 U/L Total Protein 6.8 gm/dl Albumin 3.4 gm/dl Globulin 3.4 gm/dl Albumin/Globulin Ratio 1.0 Chemistry Specimen Hemolysis Bedside Glucose 91 mg/dl 255 mg/dl Test 02/19/17 23:40 02/20/17 00:00 02/20/17 03:53 02/20/17 06:05 Bedside Glucose 65 mg/dl 78 mg/dl 89 mg/dl 83 mg/dl White Blood Count 7.83 K/uL Red Blood Count 4.65 M/uL Hemoglobin 14.2 g/dL Hematocrit 41.6 % Mean Corpuscular Volume 89.5 fL Mean Corpuscular Hemoglobin 30.5 pg Mean Corpuscular Hemoglobin Concent 34.1 g/dl Platelet Count 149 K/uL Mean Platelet Volume 10.3 fL Neutrophils (%) (Auto) 67.3 % Lymphocytes (%) (Auto) 20.9 % Monocytes (%) (Auto) 8.9 % Eosinophils (%) (Auto) 1.8 % Basophils (%) (Auto) 0.3 % Neutrophils # (Auto) 5.27 K/uL Lymphocytes # (Auto) 1.64 K/uL Monocytes # (Auto) 0.70 K/uL Eosinophils # (Auto) 0.14 K/uL Basophils # (Auto) 0.02 K/uL RDW Standard Deviation 51.2 fL RDW Coefficient of Variation 15.6 % Immature Granulocyte % (Auto) 0.8 % Immature Granulocyte # (Auto) 0.06 K/uL Sodium Level 140 mmol/L Potassium Level 4.3 mmol/L Chloride Level 111 mmol/L Carbon Dioxide Level 22 mmol/L Anion Gap 7.0 mmol/L Blood Urea Nitrogen 5 mg/dl Creatinine 1.00 mg/dl Est Creatinine Clear Calc Drug Dose 77.6 ml/min Estimated GFR () 93.7 Estimated GFR (Non- 80.9 BUN/Creatinine Ratio 5.2 Random Glucose 89 mg/dl Estimated Average Glucose 154 mg/dl Hemoglobin A1c 7.0 % Calcium Level 8.5 mg/dl Phosphorus Level 3.0 mg/dl Magnesium Level 1.8 mg/dl Total Bilirubin 0.4 mg/dl Aspartate Amino Transf (AST/SGOT) 48 U/L Alanine Aminotransferase (ALT/SGPT) 46 U/L Alkaline Phosphatase 83 U/L Total Protein 5.8 gm/dl Albumin 2.9 gm/dl Globulin 2.9 gm/dl Albumin/Globulin Ratio 1.0 Hepatitis C Antibody NEG Test 02/20/17 12:09 Bedside Glucose 78 mg/dl Mental Examination During interview pt is: alert and oriented Appearance: appropriately groomed Eye contact is: good Motor behavior is: no abnormal motor movements Speech: normal in rate, rhythm & volume Affect: depressed Mood is: depressed Thought process: clear, coherent Thought content: reality based without delusions Suicidal thought are: denied Homicidal thoughts are: denied Hallucinations: denies auditory, denies visual Cognition: memory grossly intact, attention grossly intact, language grossly intact Intelligence estimated to be: consistent with level of education Insight: fair Judgement: fair Impression / Recommendations Impression 61 yo male with a history of depression who presents with positive depression screen in setting of multiple stressors. Recommendations (1) Major depressive disorder, recurrent episode with anxious distress d/c Wellbutrin as wasn't taking on admission taper Zoloft to 50 mg for 2 days then d/c, unsure if any contribution to diarrhea start Prozac 10 mg today and increase to 20 mg tomorrow, likely to need further titration on outpatient basis patient signed release for liaison to communicate with around securing weapons as general safety measure, also to educate on med changes he is currently declining outpatient therapy referral [facility] for PCP as current psych med prescriber would avoid Xanax as prn for sleep
[2017-02-20] MEDS ORDERED: FLUOXETINE HCL 10 MG CAP PO ONE (15:00)
--- NOTE | 2017-02-20 15:05 | GI REPORT ---
Procedure Date: 02/20/2017 12:48 PM Procedure: Colonoscopy Indications: Chronic diarrhea, Microscopic colitis, Follow-up of long standing microscopic colitis Medicines: See the Anesthesia note for documentation of the administered medications Complications: No immediate complications. Estimated blood loss: Minimal. Estimated Blood Loss: Estimated blood loss was minimal. Procedure: Pre-Anesthesia Assessment: - Prior to the procedure, a History and Physical was performed, and patient medications, allergies and sensitivities were reviewed. The patient's tolerance of previous anesthesia was reviewed. - The risks and benefits of the procedure and the sedation options and risks were discussed with the patient. All questions were answered and informed consent was obtained. - Patient identification and proposed procedure were verified prior to the procedure by the physician and the nurse. The procedure was verified in the pre-procedure area in the procedure room. - Mental Status Examination: alert and oriented. Airway Examination: normal oropharyngeal airway and neck mobility. Respiratory Examination: clear to auscultation. CV Examination: normal. Abdominal Examination: bowel sounds present, abdomen soft and non-tender, no masses or organomegaly noted. - ASA Grade Assessment: III - A patient with severe systemic disease. After I obtained informed consent, the scope was passed under direct vision. Throughout the procedure, the patient's blood pressure, pulse, and oxygen saturations were monitored continuously. The Scope was introduced through the anus and advanced to the terminal ileum. The colonoscopy was performed without difficulty. The patient tolerated the procedure well. The quality of the bowel preparation was good. Findings: The perianal and digital rectal examinations were normal. Pertinent negatives include normal sphincter tone and no palpable rectal lesions. The terminal ileum appeared normal. An area of erythematous and granular mucosa was found in the entire colon. Biopsies were taken with a cold forceps for histology. Verification of patient identification for the specimen was done by the physician and nurse using the patient's name and date. Estimated blood loss was minimal. A few small-mouthed diverticula were found in the sigmoid colon. The retroflexed view of the distal rectum and anal verge was normal and showed no anal or rectal abnormalities. Impression: - The examined portion of the ileum was normal. - Erythematous and granular mucosa in the entire examined colon. Biopsied. - Diverticulosis in the sigmoid colon. - The distal rectum and anal verge are normal on retroflexion view. Recommendation: - Await pathology results. - [facility]. Birdie Deal D.O. Birdie Deal, 02/20/2017 3:04:22 PM This report has been signed electronically. Note Initiated On: 02/20/2017 12:48 PM I attest to the content of the Intraoperative Record and orders documented therein, exceptions below
[2017-02-20] MEDS: OCTREOTIDE ACETATE 100 MCG/ML VIAL SQ SCH ×2 (15:06→21:40)
--- NOTE | 2017-02-20 15:36 | Progress Note ---
Progress Note Date of Service Feb 20, 2017. Progress Note Continue IV octreotide 50mcg TID while admitted --> to be given as an outpatient subcutaneous Increase PO steroids hydrocortisone 20mg BID
--- NOTE | 2017-02-20 17:29 | Progress Note ---
Internal Med Progress Note Date of Service: Feb 20, 2017. Provider Documentation: SUBJECTIVE: just came from colonoscopy says has some abdominal discomfort says has some imbalance having diarrhea OBJECTIVE: Vital Signs-as noted below Exam: General-alert and oriented x 3 ENT-normal hearing Neck-no neck masses Lungs-cta b/l no wheezing no crackles Heart-s1 and s2 heard regular rate and rhythm no murmurs' Abdomen-soft bowel sounds present mild diffuse abdominal discomfort no distension Extremities-no edema no erythema Neuro-alert and awake moves extremities Lab data as noted below. ASSESSMENT & PLAN: 61 year old male with history of Ulcerative Colitis, Chronic Intermittent Prednisone Use, Adrenal Insufficiency, CAD, DM 2 on Insulin, HTN, COPD, presenting with persistent abdominal pain and diarrhea x 2 weeks at least POSSIBLE ULCERATIVE COLITIS FLARE UP c diff negative stool cx negative so far on iv fluids and steroids GI on board s/p coloscopy today and seems unremarkable on Sandostatin further recommendations as per GI ADRENAL INSUFFICIENCY Most likely from chronic intermittent prednisone courses On home Hydrocortisone 20mg in am, 10mg in PM will monitor. WORSENING DEPRESSION recent in the family, medical condition consulted and appreciate inputs plan to taper off Zoloft and start on Prozac. HISTORY OF CAD stable on Aspirin, Metoprolol, Lisinopril, ISMN holding Statin DM 2 on Lantus and Apidra at home ISS for now while on clear liquids Pharm consulted will monitor HTN On , Metoprolol, Lisinopril, and nitrates PRN Clonidine COPD stable on Spiriva, Breo PRN nebs Full Code DVT PROPHYLAXIS scds for now DISPOSITION expect to d/c home and followup with pcp and GI Vital Signs: Date Time Temp Pulse Resp B/P Pulse Ox O2 Delivery O2 Flow Rate FiO2 02/20/17 14:53 36.3 58 18 138/78 99 Room Air 02/20/17 14:06 36.5 53 22 127/80 97 Room Air 02/20/17 13:27 61 20 134/79 96 Room Air 02/20/17 13:11 67 20 120/69 98 Room Air 02/20/17 12:37 36.6 53 20 141/80 98 Room Air 02/20/17 12:33 36.6 53 20 141/80 98 Room Air 02/20/17 10:02 97 Room Air 02/20/17 08:47 Room Air 02/20/17 07:52 36.5 58 20 132/74 97 Room Air 02/20/17 01:08 36.6 67 18 138/76 93 Room Air 02/19/17 23:30 Room Air 02/19/17 23:13 36.6 67 18 138/76 93 Room Air 02/19/17 21:15 73 147/89 02/19/17 19:10 Room Air Lab Results: Results Past 24 Hours Test 02/19/17 20:38 02/19/17 21:40 02/19/17 23:40 02/20/17 00:00 Range/Units Bedside Glucose 255 65 78 70-99 mg/dl Test 02/20/17 03:53 02/20/17 06:05 02/20/17 12:09 02/20/17 14:28 Range/Units Bedside Glucose 89 83 78 76 70-99 mg/dl White Blood Count 7.83 4.8-10.8 K/uL Red Blood Count 4.65 4.7-6.1 M/uL Hemoglobin 14.2 14.0-18.0 g/dL Hematocrit 41.6 42-52 % Mean Corpuscular Volume 89.5 80-100 fL Mean Corpuscular Hemoglobin 30.5 25-34 pg Mean Corpuscular Hemoglobin Concent 34.1 32-36 g/dl Platelet Count 149 130-400 K/uL Mean Platelet Volume 10.3 7.4-10.4 fL Neutrophils (%) (Auto) 67.3 % Lymphocytes (%) (Auto) 20.9 % Monocytes (%) (Auto) 8.9 % Eosinophils (%) (Auto) 1.8 % Basophils (%) (Auto) 0.3 % Neutrophils # (Auto) 5.27 1.4-6.5 K/uL Lymphocytes # (Auto) 1.64 1.2-3.4 K/uL Monocytes # (Auto) 0.70 0.11-0.59 K/uL Eosinophils # (Auto) 0.14 0-0.5 K/uL Basophils # (Auto) 0.02 0-0.2 K/uL RDW Standard Deviation 51.2 36.4-46.3 fL RDW Coefficient of Variation 15.6 11.5-14.5 % Immature Granulocyte % (Auto) 0.8 % Immature Granulocyte # (Auto) 0.06 0.00-0.02 K/uL Sodium Level 140 136-145 mmol/L Potassium Level 4.3 3.5-5.1 mmol/L Chloride Level 111 98-107 mmol/L Carbon Dioxide Level 22 21-32 mmol/L Anion Gap 7.0 3-11 mmol/L Blood Urea Nitrogen 5 7-18 mg/dl Creatinine 1.00 0.60-1.40 mg/dl Est Creatinine Clear Calc Drug Dose 77.6 ml/min Estimated GFR () 93.7 Estimated GFR (Non- 80.9 BUN/Creatinine Ratio 5.2 10-20 Random Glucose 89 70-99 mg/dl Estimated Average Glucose 154 mg/dl Hemoglobin A1c 7.0 4.5-5.6 % Calcium Level 8.5 8.5-10.1 mg/dl Phosphorus Level 3.0 2.5-4.9 mg/dl Magnesium Level 1.8 1.8-2.4 mg/dl Total Bilirubin 0.4 0.2-1 mg/dl Aspartate Amino Transf (AST/SGOT) 48 15-37 U/L Alanine Aminotransferase (ALT/SGPT) 46 12-78 U/L Alkaline Phosphatase 83 45-117 U/L Total Protein 5.8 6.4-8.2 gm/dl Albumin 2.9 3.4-5.0 gm/dl Globulin 2.9 2.5-4.0 gm/dl Albumin/Globulin Ratio 1.0 0.9-2 Hepatitis C Antibody NEG NEG Test 02/20/17 16:33 Range/Units Bedside Glucose 122 70-99 mg/dl Microbiology Results 02/19/17 Shiga Toxin Test - Preliminary, Resulted No E. Coli shiga toxin 1 or shiga tox... 02/19/17 Stool Culture - Preliminary, Resulted NO SALMONELLA ISOLATED TO DATE,... 02/19/17 C.difficile Toxin B Gene (PCR) - Final, Complete No C. difficile toxin B gene detected
[2017-02-20] MEDS ORDERED: INSULIN GLARGINE SOLOSTAR 100 UNITS/ML 3 ML PEN SC SCH ×2 (18:00→21:00)
[2017-02-20] MEDS: INSULIN GLARGINE SOLOSTAR 100 UNITS/ML 3 ML PEN SC SCH (21:27)
[2017-02-21] MEDS: MoRPHine SULFATE 4 MG/ML 1 ML CARP\\VIAL IV PRN ×5 (00:08→13:13)
[2017-02-21 03:55] VITALS: BP 119/71; PULSE 73; TEMP 36.7; O2SAT 94
[2017-02-21] MEDS: OCTREOTIDE ACETATE 100 MCG/ML VIAL SQ SCH ×3 (06:13→21:31)
[2017-02-21 06:58] LABS: BASO % 0.1 %; BASO ABS # 0.01 K/uL (0-0.2); COMPLETE YES; HEMATOCRIT 38.3 % (42-52); IG% 0.7 %; LYMPH % 13.9 %; LYMPH ABS # 1.06 K/uL (1.2-3.4); MEAN CORPUSCULAR HEMOGLOBIN 30.6 pg (25-34); MEAN CORPUSCULAR HGB CONC 33.7 g/dl (32-36); MEAN PLATELET VOLUME 10.5 fL (7.4-10.4); NEUT % 76.3 %; PLATELET COUNT 133 K/uL (130-400); RED BLOOD COUNT 4.21 M/uL (4.7-6.1); WHITE BLOOD COUNT 7.62 K/uL (4.8-10.8)
[2017-02-21 07:23] VITALS: BP 134/67; PULSE 71; TEMP 36.5; O2SAT 96
[2017-02-21 07:29] LABS: MAGNESIUM 1.7 mg/dl (1.8-2.4); PHOSPHORUS 2.8 mg/dl (2.5-4.9)
[2017-02-21] MEDS: SODIUM CHLORIDE 0.9% 1000ML 1,000 ML IV SCH ×3 (07:39→23:29)
[2017-02-21] MEDS: INSULIN ASPART 100 UNITS/ML 3 ML PEN SC SCH ×4 (08:00→20:17)
[2017-02-21] MEDS ORDERED: SERTRALINE HCL 50 MG TAB PO SCH (09:00)
[2017-02-21] MEDS: TIOTROPIUM BROMIDE 5 PUFF/90 MCG INH INH SCH (09:16)
[2017-02-21] MEDS: FLUOXETINE HCL 20 MG CAP PO SCH (09:16)
[2017-02-21] MEDS: RANITIDINE HCL 150 MG TAB PO SCH ×2 (09:16→20:31)
[2017-02-21] MEDS: LISINOPRIL 5 MG TAB PO SCH (09:16)
[2017-02-21] MEDS: CHOLESTYRAMINE LIGHT 4 GM PKT PO SCH ×4 (09:16→20:30)
[2017-02-21] MEDS: METOPROLOL TARTRATE 100 MG TAB PO SCH ×2 (09:16→20:30)
[2017-02-21] MEDS: ISOSORBIDE MONONITRATE 60 MG TABCR PO SCH (09:16)
[2017-02-21] MEDS: PANTOprazole SOD 40 MG TAB PO SCH ×2 (09:16→20:30)
[2017-02-21] MEDS: ASPIRIN 81 MG CHEW PO SCH (09:16)
[2017-02-21] MEDS: HYDROCORTISONE 10 MG TAB PO SCH ×2 (09:21→20:30)
--- NOTE | 2017-02-21 12:58 | Gastroenterology Progress Note ---
Progress Note Date of Service: Feb 21, 2017 Subjective Pt evaluation today including: conversation w/ patient, physical exam The patient notes that his diarrhea does seem to be slowing a little. He was started on octreotide as recommended by . He has a history of microscopic colitis and does note that he still uses aspirin which is a nonsteroidal. Review of Systems Constitutional: No fatigue, No fever, No weight loss Eyes: No diplopia, No redness, No worsening of vision Respiratory: + sputum, No cough, No dyspnea at rest, No wheezing Cardiac: + orthopnea, No PND, No chest pain, No palpitations Medications Current Inpatient Medications Medications (Trade) Dose Ordered Sig/Tisha Route Start Time Stop Time Status Last Admin Dose Admin Acetaminophen 650 mg 650 mg Q4H PRN PO 02/19/17 15:30 03/21/17 15:29 Sodium Chloride (Nss 1000ml) 1,000 ml @ 125 mls/hr Q8H IV 02/19/17 16:00 03/21/17 15:59 02/21/17 07:39 125 MLS/HR Glucose (Glucose 40% Gel) 15-30 GRAMS 15 GRAMS... UD PRN PO 02/19/17 16:15 03/21/17 16:14 Glucose (Glucose Chew Tab) 4-8 Tablets 4 Tabl... UD PRN PO 02/19/17 16:15 03/21/17 16:14 Dextrose (Dextrose 50% 50ML Syringe) 25-50ML OF 50% DW IV FOR... UD PRN IV 02/19/17 16:15 03/21/17 16:14 Glucagon (Glucagon Inj) 1 mg UD PRN SQ 02/19/17 16:15 03/21/17 16:14 Miscellaneous Information (Consult Glycemic Management Pharmacy) 1 ea UD PRN N/A 02/19/17 16:15 03/21/17 16:14 Clonidine HCl (Catapres Tab) 0.1 mg Q6H PRN PO 02/19/17 16:15 03/21/17 16:14 Ipratropium [place] (Atrovent 0.02% 0.5MG/2.5ML Neb) 0.5 mg Q4H PRN INH 02/19/17 16:15 03/21/17 16:14 Levalbuterol (Xopenex 1.25MG/ 0.5ML Neb) 1.25 mg Q4H PRN INH 02/19/17 16:15 03/21/17 16:14 Aspirin (Aspirin Chew) 81 mg QAM PO 02/20/17 09:00 03/22/17 08:59 02/21/17 09:16 81 MG Hydrocortisone (Cortef Tab) 20 mg DAILY PO 02/20/17 09:00 03/22/17 08:59 02/21/17 09:21 20 MG Isosorbide Mononitrate (Imdur Ext Rel Tab) 60 mg QAM PO 02/20/17 09:00 03/22/17 08:59 02/21/17 09:16 60 MG Lisinopril (Zestril Tab) 5 mg QAM PO 02/20/17 09:00 03/22/17 08:59 02/21/17 09:16 5 MG Metoprolol Tartrate (Lopressor Tab) 100 mg BID PO 02/19/17 21:00 03/21/17 20:59 02/21/17 09:16 100 MG Pantoprazole Sodium (Protonix Tab) 40 mg BID PO 02/19/17 21:00 03/21/17 20:59 02/21/17 09:16 40 MG Ranitidine HCl (zANTac TAB) 150 mg BID PO 02/19/17 21:00 03/21/17 20:59 02/21/17 09:16 150 MG Tiotropium [place] (Spiriva Handihaler Inhaler) 1 puff QAM INH 02/20/17 09:00 03/22/17 08:59 02/21/17 09:16 1 PUFF Cholestyramine Resin (Questran Powder Light) 4 gm QID PO 02/19/17 17:00 03/21/17 16:59 02/21/17 09:16 4 GM Miscellaneous Information (Order Awaiting Action) 1 ea TID N/A 02/19/17 17:00 03/21/17 16:59 Insulin Aspart (novoLOG ASPART) SLIDING SCALE If C... ACHS SC 02/20/17 17:15 03/22/17 17:14 02/20/17 21:26 1 UNITS Insulin Glargine (Lantus Solostar Pen) HS SC 02/20/17 21:00 03/22/17 20:59 02/20/17 21:27 5 UNIT Octreotide Acetate (Sandostatin Inj) 50 mcg Q8H SQ 02/20/17 14:00 03/22/17 13:14 02/21/17 06:13 50 MCG Fluoxetine HCl (Prozac Cap) 20 mg QAM PO 02/21/17 09:00 03/23/17 08:59 02/21/17 09:16 20 MG Hydrocortisone (Cortef Tab) 20 mg PM PO 02/20/17 21:00 03/22/17 20:59 02/20/17 21:19 20 MG Morphine Sulfate (MoRPHine SULFATE INJ) 3 mg Q3HWA PRN IV 02/20/17 19:00 03/06/17 18:59 02/21/17 09:25 3 MG Objective Vital Signs Date Time Temp Pulse Resp B/P Pulse Ox O2 Delivery O2 Flow Rate FiO2 02/21/17 08:24 Room Air 02/21/17 07:23 36.5 71 16 134/67 96 Room Air 02/21/17 03:55 36.7 73 18 119/71 94 Room Air 02/20/17 23:10 36.5 64 18 116/70 97 Room Air 02/20/17 21:16 55 118/71 02/20/17 20:00 Room Air 02/20/17 14:53 36.3 58 18 138/78 99 Room Air 02/20/17 14:06 36.5 53 22 127/80 97 Room Air 02/20/17 13:27 61 20 134/79 96 Room Air 02/20/17 13:11 67 20 120/69 98 Room Air Physical Exam General Appearance: no apparent distress Eyes: PERRL Neck: no JVD Respiratory/Chest: no respiratory distress Cardiovascular: no edema, no JVD, no murmur Abdomen: soft, + tenderness (mild left lower quadrant) Neurologic/Psych: oriented x 3 Skin: no jaundice Laboratory Results Last 24 Hours Test 02/20/17 14:28 02/20/17 16:33 02/20/17 20:23 02/21/17 06:34 Bedside Glucose 76 mg/dl 122 mg/dl 166 mg/dl White Blood Count 7.62 K/uL Red Blood Count 4.21 M/uL Hemoglobin 12.9 g/dL Hematocrit 38.3 % Mean Corpuscular Volume 91.0 fL Mean Corpuscular Hemoglobin 30.6 pg Mean Corpuscular Hemoglobin Concent 33.7 g/dl Platelet Count 133 K/uL Mean Platelet Volume 10.5 fL Neutrophils (%) (Auto) 76.3 % Lymphocytes (%) (Auto) 13.9 % Monocytes (%) (Auto) 7.0 % Eosinophils (%) (Auto) 2.0 % Basophils (%) (Auto) 0.1 % Neutrophils # (Auto) 5.82 K/uL Lymphocytes # (Auto) 1.06 K/uL Monocytes # (Auto) 0.53 K/uL Eosinophils # (Auto) 0.15 K/uL Basophils # (Auto) 0.01 K/uL RDW Standard Deviation 52.2 fL RDW Coefficient of Variation 15.6 % Immature Granulocyte % (Auto) 0.7 % Immature Granulocyte # (Auto) 0.05 K/uL Test 02/21/17 06:35 02/21/17 07:43 02/21/17 11:44 Phosphorus Level 2.8 mg/dl Magnesium Level 1.7 mg/dl Bedside Glucose 118 mg/dl 135 mg/dl Assessment and Plan Patient with a history of refractory microscopic colitis. Given his persistent diarrhea his primary gastric neurology doctors recommended use of octreotide. Recommendations Please discontinue use of all nonsteroidals and proton pump inhibitors Continue with present medications for microscopic colitis Coverage to resume on Thursday
[2017-02-21 15:02] VITALS: BP 139/82; PULSE 71; TEMP 36.6; O2SAT 96
--- NOTE | 2017-02-21 16:11 | Progress Note ---
Internal Med Progress Note Date of Service: Feb 21, 2017. Provider Documentation: SUBJECTIVE: feeling little bit better today still has watery diarrhea has left lower abdominal pain afebrile not eating much OBJECTIVE: Vital Signs-as noted below Exam: General-alert and oriented x 3 ENT-normal hearing Neck-no neck masses Lungs-cta b/l no wheezing no crackles Heart-s1 and s2 heard regular rate and rhythm no murmurs' Abdomen-soft bowel sounds present lower abdominal discomfort no distension Extremities-no edema no erythema Neuro-alert and awake moves extremities Lab data as noted below. ASSESSMENT & PLAN: 61 year old male with history of Ulcerative Colitis, Chronic Intermittent Prednisone Use, Adrenal Insufficiency, CAD, DM 2 on Insulin, HTN, COPD, presenting with persistent abdominal pain and diarrhea x 2 weeks at least POSSIBLE ULCERATIVE COLITIS FLARE UP c diff negative stool cx negative so far on iv fluids and steroids GI on board s/p coloscopy02/20/17 and seems unremarkable on Sandostatin pain control further recommendations as per GI ADRENAL INSUFFICIENCY Most likely from chronic intermittent prednisone courses On home Hydrocortisone 20mg in am, 10mg in PM will monitor. stable WORSENING DEPRESSION recent in the family, medical condition consulted and appreciate inputs plan to taper off Zoloft and start on Prozac. HISTORY OF CAD stable on Aspirin, Metoprolol, Lisinopril, ISMN holding Statin DM 2 on Lantus and Apidra at home ISS for now while on clear liquids Pharm consulted 122/166/118/135 will monitor HTN On , Metoprolol, Lisinopril, and nitrates PRN Clonidine COPD stable on Spiriva, Breo PRN nebs Full Code DVT PROPHYLAXIS scds for now DISPOSITION expect to d/c home and followup with pcp and GI Vital Signs: Date Time Temp Pulse Resp B/P Pulse Ox O2 Delivery O2 Flow Rate FiO2 02/21/17 15:02 36.6 71 18 139/82 96 Room Air 02/21/17 08:24 Room Air 02/21/17 07:23 36.5 71 16 134/67 96 Room Air 02/21/17 03:55 36.7 73 18 119/71 94 Room Air 02/20/17 23:10 36.5 64 18 116/70 97 Room Air 02/20/17 21:16 55 118/71 02/20/17 20:00 Room Air Lab Results: Results Past 24 Hours Test 02/20/17 16:33 3/31/17 20:23 02/21/17 06:34 02/21/17 06:35 Range/Units Bedside Glucose 122 166 70-99 mg/dl White Blood Count 7.62 4.8-10.8 K/uL Red Blood Count 4.21 4.7-6.1 M/uL Hemoglobin 12.9 14.0-18.0 g/dL Hematocrit 38.3 42-52 % Mean Corpuscular Volume 91.0 80-100 fL Mean Corpuscular Hemoglobin 30.6 25-34 pg Mean Corpuscular Hemoglobin Concent 33.7 32-36 g/dl Platelet Count 133 130-400 K/uL Mean Platelet Volume 10.5 7.4-10.4 fL Neutrophils (%) (Auto) 76.3 % Lymphocytes (%) (Auto) 13.9 % Monocytes (%) (Auto) 7.0 % Eosinophils (%) (Auto) 2.0 % Basophils (%) (Auto) 0.1 % Neutrophils # (Auto) 5.82 1.4-6.5 K/uL Lymphocytes # (Auto) 1.06 1.2-3.4 K/uL Monocytes # (Auto) 0.53 0.11-0.59 K/uL Eosinophils # (Auto) 0.15 0-0.5 K/uL Basophils # (Auto) 0.01 0-0.2 K/uL RDW Standard Deviation 52.2 36.4-46.3 fL RDW Coefficient of Variation 15.6 11.5-14.5 % Immature Granulocyte % (Auto) 0.7 % Immature Granulocyte # (Auto) 0.05 0.00-0.02 K/uL Phosphorus Level 2.8 2.5-4.9 mg/dl Magnesium Level 1.7 1.8-2.4 mg/dl Test 02/21/17 07:43 02/21/17 11:44 Range/Units Bedside Glucose 118 135 70-99 mg/dl
[2017-02-21] MEDS: HYDROmorphone INJ 1 MG/ML SYR IV PRN ×3 (17:02→23:29)
[2017-02-21] MEDS: INSULIN GLARGINE SOLOSTAR 100 UNITS/ML 3 ML PEN SC SCH (20:16)
[2017-02-21 23:42] VITALS: BP 160/80; PULSE 60; TEMP 36.7; O2SAT 95
[2017-02-22] MEDS: HYDROmorphone INJ 1 MG/ML SYR IV PRN ×6 (02:32→22:09)
[2017-02-22 03:56] VITALS: BP 135/77; PULSE 51; TEMP 36.7; O2SAT 96
[2017-02-22] MEDS: OCTREOTIDE ACETATE 100 MCG/ML VIAL SQ SCH ×3 (05:33→22:28)
[2017-02-22 07:14] LABS: BASO % 0.1 %; BASO ABS # 0.01 K/uL (0-0.2); COMPLETE YES; EOS % 0.7 %; HEMATOCRIT 36.8 % (42-52); IG% 0.4 %; LYMPH % 12.5 %; LYMPH ABS # 1.12 K/uL (1.2-3.4); MEAN CELL VOLUME 89.3 fL (80-100); MEAN CORPUSCULAR HEMOGLOBIN 29.9 pg (25-34); MEAN CORPUSCULAR HGB CONC 33.4 g/dl (32-36); MONO % 8.5 %; NEUT % 77.8 %; PLATELET COUNT 137 K/uL (130-400); RED BLOOD COUNT 4.12 M/uL (4.7-6.1); WHITE BLOOD COUNT 8.98 K/uL (4.8-10.8)
[2017-02-22] MEDS: SODIUM CHLORIDE 0.9% 1000ML 1,000 ML IV SCH ×2 (07:27→16:15)
[2017-02-22 07:42] VITALS: BP 161/88; PULSE 48; TEMP 36.6; O2SAT 95
[2017-02-22 08:06] LABS: MAGNESIUM 1.5 mg/dl (1.8-2.4)
[2017-02-22] MEDS: ASPIRIN 81 MG CHEW PO SCH (08:34)
[2017-02-22] MEDS: LISINOPRIL 5 MG TAB PO SCH (08:35)
[2017-02-22] MEDS: FLUOXETINE HCL 20 MG CAP PO SCH (08:35)
[2017-02-22] MEDS: RANITIDINE HCL 150 MG TAB PO SCH ×2 (08:36→20:43)
[2017-02-22] MEDS: ISOSORBIDE MONONITRATE 60 MG TABCR PO SCH (08:36)
[2017-02-22] MEDS: METOPROLOL TARTRATE 100 MG TAB PO SCH ×2 (08:36→20:37)
[2017-02-22] MEDS: HYDROCORTISONE 10 MG TAB PO SCH ×2 (08:36→20:41)
[2017-02-22 08:37] VITALS: PULSE 63
[2017-02-22] MEDS: TIOTROPIUM BROMIDE 5 PUFF/90 MCG INH INH SCH (08:37)
[2017-02-22] MEDS: CHOLESTYRAMINE LIGHT 4 GM PKT PO SCH ×4 (08:37→20:38)
--- NOTE | 2017-02-22 08:51 | Gastroenterology Progress Note ---
Progress Note Date of Service: Feb 22, 2017 Subjective Pt evaluation today including: conversation w/ patient, physical exam Patient notes having persistent diarrhea today. The stools described as watery in nature associated with urgency. He has a history of microscopic colitis and is followed by Dr. Keith Review of Systems Constitutional: No fatigue, No fever, No sweats Respiratory: No cough, No wheezing Cardiac: No PND, No chest pain, No palpitations Abdomen: + pain, No nausea Medications Current Inpatient Medications Medications (Trade) Dose Ordered Sig/Tisha Route Start Time Stop Time Status Last Admin Dose Admin Acetaminophen 650 mg 650 mg Q4H PRN PO 02/19/17 15:30 03/21/17 15:29 02/22/17 03:48 650 MG Sodium Chloride (Nss 1000ml) 1,000 ml @ 125 mls/hr Q8H IV 02/19/17 16:00 03/21/17 15:59 02/22/17 07:27 125 MLS/HR Glucose (Glucose 40% Gel) 15-30 GRAMS 15 GRAMS... UD PRN PO 02/19/17 16:15 03/21/17 16:14 Glucose (Glucose Chew Tab) 4-8 Tablets 4 Tabl... UD PRN PO 02/19/17 16:15 03/21/17 16:14 Dextrose (Dextrose 50% 50ML Syringe) 25-50ML OF 50% DW IV FOR... UD PRN IV 02/19/17 16:15 03/21/17 16:14 Glucagon (Glucagon Inj) 1 mg UD PRN SQ 02/19/17 16:15 03/21/17 16:14 Miscellaneous Information (Consult Glycemic Management Pharmacy) 1 ea UD PRN N/A 02/19/17 16:15 03/21/17 16:14 Clonidine HCl (Catapres Tab) 0.1 mg Q6H PRN PO 02/19/17 16:15 03/21/17 16:14 Ipratropium [place] (Atrovent 0.02% 0.5MG/2.5ML Neb) 0.5 mg Q4H PRN INH 02/19/17 16:15 03/21/17 16:14 Levalbuterol (Xopenex 1.25MG/ 0.5ML Neb) 1.25 mg Q4H PRN INH 02/19/17 16:15 03/21/17 16:14 Aspirin (Aspirin Chew) 81 mg QAM PO 02/20/17 09:00 03/22/17 08:59 02/21/17 09:16 81 MG Hydrocortisone (Cortef Tab) 20 mg DAILY PO 02/20/17 09:00 03/22/17 08:59 02/21/17 09:21 20 MG Isosorbide Mononitrate (Imdur Ext Rel Tab) 60 mg QAM PO 02/20/17 09:00 03/22/17 08:59 02/21/17 09:16 60 MG Lisinopril (Zestril Tab) 5 mg QAM PO 02/20/17 09:00 03/22/17 08:59 02/21/17 09:16 5 MG Metoprolol Tartrate (Lopressor Tab) 100 mg BID PO 02/19/17 21:00 03/21/17 20:59 02/21/17 20:30 100 MG Pantoprazole Sodium (Protonix Tab) 40 mg BID PO 02/19/17 21:00 03/21/17 20:59 02/21/17 20:30 40 MG Ranitidine HCl (zANTac TAB) 150 mg BID PO 02/19/17 21:00 03/21/17 20:59 02/21/17 20:31 150 MG Tiotropium [place] (Spiriva Handihaler Inhaler) 1 puff QAM INH 02/20/17 09:00 03/22/17 08:59 02/21/17 09:16 1 PUFF Cholestyramine Resin (Questran Powder Light) 4 gm QID PO 02/19/17 17:00 03/21/17 16:59 02/21/17 20:30 4 GM Miscellaneous Information (Order Awaiting Action) 1 ea TID N/A 02/19/17 17:00 03/21/17 16:59 Insulin Aspart (novoLOG ASPART) SLIDING SCALE If C... ACHS SC 02/20/17 17:15 03/22/17 17:14 02/21/17 18:26 3 UNITS Insulin Glargine (Lantus Solostar Pen) HS SC 02/20/17 21:00 03/22/17 20:59 02/20/17 21:27 5 UNIT Octreotide Acetate (Sandostatin Inj) 50 mcg Q8H SQ 02/20/17 14:00 03/22/17 13:14 02/22/17 05:33 50 MCG Fluoxetine HCl (Prozac Cap) 20 mg QAM PO 02/21/17 09:00 03/23/17 08:59 02/21/17 09:16 20 MG Hydrocortisone (Cortef Tab) 20 mg PM PO 02/20/17 21:00 03/22/17 20:59 02/21/17 20:30 20 MG Hydromorphone HCl (Dilaudid Inj) 1 mg Q3HWA PRN IV 02/21/17 16:15 03/07/17 16:14 02/22/17 05:32 1 MG Objective Vital Signs Date Time Temp Pulse Resp B/P Pulse Ox O2 Delivery O2 Flow Rate FiO2 02/22/17 08:37 63 02/22/17 07:42 36.6 48 16 161/88 95 Room Air 02/22/17 03:56 36.7 51 18 135/77 96 Nasal Cannula 02/21/17 23:42 36.7 60 18 160/80 95 Room Air 02/21/17 23:30 Room Air 02/21/17 20:00 Room Air 02/21/17 15:02 36.6 71 18 139/82 96 Room Air Physical Exam General Appearance: no apparent distress Neck: no JVD Respiratory/Chest: lungs clear Cardiovascular: no JVD, no murmur Abdomen: soft Skin: no jaundice Laboratory Results Last 24 Hours Test 02/21/17 11:44 02/21/17 16:58 02/21/17 20:12 02/22/17 06:25 Bedside Glucose 135 mg/dl 156 mg/dl 138 mg/dl White Blood Count 8.98 K/uL Red Blood Count 4.12 M/uL Hemoglobin 12.3 g/dL Hematocrit 36.8 % Mean Corpuscular Volume 89.3 fL Mean Corpuscular Hemoglobin 29.9 pg Mean Corpuscular Hemoglobin Concent 33.4 g/dl Platelet Count 137 K/uL Mean Platelet Volume 10.0 fL Neutrophils (%) (Auto) 77.8 % Lymphocytes (%) (Auto) 12.5 % Monocytes (%) (Auto) 8.5 % Eosinophils (%) (Auto) 0.7 % Basophils (%) (Auto) 0.1 % Neutrophils # (Auto) 6.99 K/uL Lymphocytes # (Auto) 1.12 K/uL Monocytes # (Auto) 0.76 K/uL Eosinophils # (Auto) 0.06 K/uL Basophils # (Auto) 0.01 K/uL RDW Standard Deviation 50.0 fL RDW Coefficient of Variation 15.4 % Immature Granulocyte % (Auto) 0.4 % Immature Granulocyte # (Auto) 0.04 K/uL Phosphorus Level 2.0 mg/dl Magnesium Level 1.5 mg/dl Test 02/22/17 07:32 Bedside Glucose 127 mg/dl Assessment and Plan Patient with a history of refractory microscopic colitis. Microscopic colitis is typically induced by medications such as nonsteroidals, proton pump inhibitors and even antidepressants like SSRIs. I would recommend that the patient's proton pump inhibitor be discontinued. I would also suggest that the patient's SSRI be discontinued as well. Should the biopsies come back as microscopic colitis and his symptoms persist we could try a course of budesonide.. Recommendations Please discontinue use of all nonsteroidals and proton pump inhibitors Please consider stopping the patient's SSRI Continue with present medications for microscopic colitis Coverage to resume on Thursday
[2017-02-22] MEDS: INSULIN ASPART 100 UNITS/ML 3 ML PEN SC SCH ×4 (08:52→20:33)
[2017-02-22] MEDS ORDERED: SODIUM PHOSPHATE 3 MMOL/1 ML INFUSION IV STA (10:34)
[2017-02-22] MEDS ORDERED: SODIUM PHOSPHATE INJ 21 MMOL in SODIUM CHLORIDE 0.9% 500ML 500 ML IV SCH (11:00)
[2017-02-22] MEDS: MAGNESIUM SULFATE 1GM / D5W 1 GM in PREMIXED IN D5W 100 ML IV SCH ×2 (11:17→12:37)
[2017-02-22] MEDS: POT PHOSPHATE MONOBASIC W/ SOD TAB PO SCH ×3 (12:38→20:41)
[2017-02-22 15:08] VITALS: BP 131/79; PULSE 44; TEMP 36.3; O2SAT 97
--- NOTE | 2017-02-22 16:22 | Progress Note ---
Internal Med Progress Note Date of Service: Feb 22, 2017. Provider Documentation: SUBJECTIVE: still has runny diarrhea and abdominal pain Dilaudid working better able to sleep some last night afebrile OBJECTIVE: Vital Signs-as noted below Exam: General-alert and oriented x 3 ENT-normal hearing Neck-no neck masses Lungs-cta b/l no wheezing no crackles Heart-s1 and s2 heard regular rate and rhythm no murmurs' Abdomen-soft bowel sounds present lower abdominal discomfort no distension Extremities-no edema no erythema Neuro-alert and awake moves extremities Lab data as noted below. ASSESSMENT & PLAN: 61 year old male with history of Ulcerative Colitis, Chronic Intermittent Prednisone Use, Adrenal Insufficiency, CAD, DM 2 on Insulin, HTN, COPD, presenting with persistent abdominal pain and diarrhea x 2 weeks at least POSSIBLE ULCERATIVE COLITIS FLARE UP c diff negative stool cx negative so far on iv fluids and steroids GI on board s/p coloscopy02/20/17 and seems unremarkable on Sandostatin pain control still having diarrhea and abdominal pain GI recommends to stop Protonix and Prozac but patient wants to be on them further recommendations as per GI ADRENAL INSUFFICIENCY Most likely from chronic intermittent prednisone courses On home Hydrocortisone 20mg in am, 10mg in PM will monitor. stable WORSENING DEPRESSION recent in the family, medical condition consulted and appreciate inputs plan to taper off Zoloft and start on Prozac. GI recommends to stop SSRI as they can cause microscopic colitis but patient says he is currently undergoing lot of stress secondary to in family and he wants to be on it. HISTORY OF CAD stable on Aspirin, Metoprolol, Lisinopril, ISMN holding Statin DM 2 on Lantus and Apidra at home ISS for now while on clear liquids Pharm consulted will monitor HTN On , Metoprolol, Lisinopril, and nitrates PRN Clonidine COPD stable on Spiriva, Breo PRN nebs Full Code DVT PROPHYLAXIS scds for now DISPOSITION expect to d/c home and followup with pcp and GI Vital Signs: Date Time Temp Pulse Resp B/P Pulse Ox O2 Delivery O2 Flow Rate FiO2 02/22/17 15:08 36.3 44 16 131/79 97 Room Air 02/22/17 08:37 63 02/22/17 07:45 Room Air 02/22/17 07:42 36.6 48 16 161/88 95 Room Air 02/22/17 03:56 36.7 51 18 135/77 96 Nasal Cannula 02/21/17 23:42 36.7 60 18 160/80 95 Room Air 02/21/17 23:30 Room Air 02/21/17 20:00 Room Air Lab Results: Results Past 24 Hours Test 02/21/17 16:58 02/21/17 20:12 02/22/17 06:25 02/22/17 07:32 Range/Units Bedside Glucose 156 138 127 70-99 mg/dl White Blood Count 8.98 4.8-10.8 K/uL Red Blood Count 4.12 4.7-6.1 M/uL Hemoglobin 12.3 14.0-18.0 g/dL Hematocrit 36.8 42-52 % Mean Corpuscular Volume 89.3 80-100 fL Mean Corpuscular Hemoglobin 29.9 25-34 pg Mean Corpuscular Hemoglobin Concent 33.4 32-36 g/dl Platelet Count 137 130-400 K/uL Mean Platelet Volume 10.0 7.4-10.4 fL Neutrophils (%) (Auto) 77.8 % Lymphocytes (%) (Auto) 12.5 % Monocytes (%) (Auto) 8.5 % Eosinophils (%) (Auto) 0.7 % Basophils (%) (Auto) 0.1 % Neutrophils # (Auto) 6.99 1.4-6.5 K/uL Lymphocytes # (Auto) 1.12 1.2-3.4 K/uL Monocytes # (Auto) 0.76 0.11-0.59 K/uL Eosinophils # (Auto) 0.06 0-0.5 K/uL Basophils # (Auto) 0.01 0-0.2 K/uL RDW Standard Deviation 50.0 36.4-46.3 fL RDW Coefficient of Variation 15.4 11.5-14.5 % Immature Granulocyte % (Auto) 0.4 % Immature Granulocyte # (Auto) 0.04 0.00-0.02 K/uL Phosphorus Level 2.0 2.5-4.9 mg/dl Magnesium Level 1.5 1.8-2.4 mg/dl Test 02/22/17 11:57 02/22/17 12:15 Range/Units Bedside Glucose 113 70-99 mg/dl Potassium Level 3.6 3.5-5.1 mmol/L
[2017-02-22] MEDS: INSULIN GLARGINE SOLOSTAR 100 UNITS/ML 3 ML PEN SC SCH (20:34)
[2017-02-22] MEDS: MAGNESIUM CHLORIDE 64MG DELAYED REL TAB PO SCH (20:42)
[2017-02-22 22:56] VITALS: BP 135/67; PULSE 67; TEMP 37.1; O2SAT 96
[2017-02-23] MEDS: HYDROmorphone INJ 1 MG/ML SYR IV PRN ×7 (01:18→21:02)
[2017-02-23] MEDS: SODIUM CHLORIDE 0.9% 1000ML 1,000 ML IV SCH ×4 (01:23→23:56)
[2017-02-23] MEDS: OCTREOTIDE ACETATE 100 MCG/ML VIAL SQ SCH ×3 (06:24→21:15)
[2017-02-23 07:05] LABS: COMPLETE YES; EOS % 0.3 %; HEMATOCRIT 36.9 % (42-52); IG% 0.4 %; LYMPH % 13.2 %; LYMPH ABS # 1.37 K/uL (1.2-3.4); MEAN CELL VOLUME 89.8 fL (80-100); MEAN CORPUSCULAR HEMOGLOBIN 30.9 pg (25-34); MEAN CORPUSCULAR HGB CONC 34.4 g/dl (32-36); NEUT % 77.1 %; PLATELET COUNT 139 K/uL (130-400); RED BLOOD COUNT 4.11 M/uL (4.7-6.1); WHITE BLOOD COUNT 10.34 K/uL (4.8-10.8)
[2017-02-23 07:44] VITALS: O2SAT 96
[2017-02-23 07:44] LABS: CALCIUM 7.8 mg/dl (8.5-10.1); CREATININE 0.96 mg/dl (0.60-1.40); MAGNESIUM 1.6 mg/dl (1.8-2.4); PHOSPHORUS 2.6 mg/dl (2.5-4.9)
[2017-02-23 07:45] VITALS: BP 127/70; PULSE 64; TEMP 36.6; O2SAT 96
[2017-02-23] MEDS ORDERED: FLUOXETINE HCL 20 MG CAP PO SCH (09:00)
[2017-02-23] MEDS: TIOTROPIUM BROMIDE 5 PUFF/90 MCG INH INH SCH (09:02)
[2017-02-23] MEDS: ISOSORBIDE MONONITRATE 60 MG TABCR PO SCH (09:02)
[2017-02-23] MEDS: RANITIDINE HCL 150 MG TAB PO SCH ×2 (09:03→21:04)
[2017-02-23] MEDS: METOPROLOL TARTRATE 100 MG TAB PO SCH ×2 (09:04→21:08)
[2017-02-23] MEDS: POT PHOSPHATE MONOBASIC W/ SOD TAB PO SCH ×4 (09:04→20:59)
[2017-02-23] MEDS: HYDROCORTISONE 10 MG TAB PO SCH ×2 (09:04→21:00)
[2017-02-23] MEDS: CHOLESTYRAMINE LIGHT 4 GM PKT PO SCH ×4 (09:05→21:02)
[2017-02-23] MEDS: ASPIRIN 81 MG CHEW PO SCH (09:05)
[2017-02-23] MEDS: MAGNESIUM CHLORIDE 64MG DELAYED REL TAB PO SCH ×2 (09:05→20:59)
[2017-02-23] MEDS: LISINOPRIL 5 MG TAB PO SCH (09:06)
[2017-02-23] MEDS: INSULIN ASPART 100 UNITS/ML 3 ML PEN SC SCH ×4 (09:17→21:00)
--- NOTE | 2017-02-23 09:54 | Psychiatric Progress Notes ---
Psychiatric Progress Note Date of Service Feb 23, 2017. Notes ID: Patient reviewed with liaison nurse. Interim history reviewed following initial consultation on 02/20/17. CC: "I'm still here" HPI: patient vented about his stressors, 's health, preps to travel to [place] for nephew's services and frustrations of ongoing pain and financial woes. ROS: Psych: denies symptoms other than stated above Constitutional: states pain returning Cardiovascular: denied GI: ongoing diarrhea, no worse following psych med changes Neurologic: denied Remainder of 10 body systems also reviewed and denied other than noted above. MSE: alert, cooperative, speech normal, thoughts organized, no SI/HI/perez. Imp: MDD with anxious distress Plan: titrate Prozac to 30 mg starting tomorrow with plan for ultimate initial target dose of 40 mg after a few more days (can be done outpatient) liaison to meet with when she arrives to safety plan re: weapons and educate re: med changes would advise against resuming Xanax, hasn't worked for some time and benzos interact with pain meds Patient agreeable to a trial of Vistaril for hs anxiety.
[2017-02-23] MEDS ORDERED: hydrOXYzine HCL 25 MG TAB PO PRN (10:00)
--- NOTE | 2017-02-23 10:56 | Gastroenterology Progress Note ---
Progress Note Date of Service: Feb 23, 2017 Subjective Pt evaluation today including: conversation w/ patient, physical exam Pt was seen and examined. No new complaints - symptoms are the same. Still moving loose stools 10+ times daily. No black or bloody stools. Bilateral lower quadrant abdominal pain that is sharp and feels like pressure. Pain is moderately relieved by passing a BM. No upper GI symptoms. Review of Systems Constitutional: No chills, No fever Respiratory: No cough, No shortness of breath Cardiac: No chest pain, No edema Abdomen: + diarrhea, + pain, No GI bleeding, No constipation, No nausea, No vomiting Medications Current Inpatient Medications Medications (Trade) Dose Ordered Sig/Tisha Route Start Time Stop Time Status Last Admin Dose Admin Acetaminophen 650 mg 650 mg Q4H PRN PO 02/19/17 15:30 03/21/17 15:29 02/22/17 03:48 650 MG Sodium Chloride (Nss 1000ml) 1,000 ml @ 125 mls/hr Q8H IV 02/19/17 16:00 03/21/17 15:59 02/23/17 09:01 125 MLS/HR Glucose (Glucose 40% Gel) 15-30 GRAMS 15 GRAMS... UD PRN PO 02/19/17 16:15 03/21/17 16:14 Glucose (Glucose Chew Tab) 4-8 Tablets 4 Tabl... UD PRN PO 02/19/17 16:15 03/21/17 16:14 Dextrose (Dextrose 50% 50ML Syringe) 25-50ML OF 50% DW IV FOR... UD PRN IV 02/19/17 16:15 03/21/17 16:14 Glucagon (Glucagon Inj) 1 mg UD PRN SQ 02/19/17 16:15 03/21/17 16:14 Miscellaneous Information (Consult Glycemic Management Pharmacy) 1 ea UD PRN N/A 02/19/17 16:15 03/21/17 16:14 Clonidine HCl (Catapres Tab) 0.1 mg Q6H PRN PO 02/19/17 16:15 03/21/17 16:14 Ipratropium [place] (Atrovent 0.02% 0.5MG/2.5ML Neb) 0.5 mg Q4H PRN INH 02/19/17 16:15 03/21/17 16:14 Levalbuterol (Xopenex 1.25MG/ 0.5ML Neb) 1.25 mg Q4H PRN INH 02/19/17 16:15 03/21/17 16:14 Aspirin (Aspirin Chew) 81 mg QAM PO 02/20/17 09:00 03/22/17 08:59 02/23/17 09:05 81 MG Hydrocortisone (Cortef Tab) 20 mg DAILY PO 02/20/17 09:00 03/22/17 08:59 02/23/17 09:04 20 MG Isosorbide Mononitrate (Imdur Ext Rel Tab) 60 mg QAM PO 02/20/17 09:00 03/22/17 08:59 02/23/17 09:02 60 MG Lisinopril (Zestril Tab) 5 mg QAM PO 02/20/17 09:00 03/22/17 08:59 02/23/17 09:06 5 MG Metoprolol Tartrate (Lopressor Tab) 100 mg BID PO 02/19/17 21:00 03/21/17 20:59 02/23/17 09:04 100 MG Ranitidine HCl (zANTac TAB) 150 mg BID PO 02/19/17 21:00 03/21/17 20:59 02/23/17 09:03 150 MG Tiotropium [place] (Spiriva Handihaler Inhaler) 1 puff QAM INH 02/20/17 09:00 03/22/17 08:59 02/23/17 09:02 1 PUFF Cholestyramine Resin (Questran Powder Light) 4 gm QID PO 02/19/17 17:00 03/21/17 16:59 02/23/17 09:05 4 GM Miscellaneous Information (Order Awaiting Action) 1 ea TID N/A 02/19/17 17:00 03/21/17 16:59 Insulin Aspart (novoLOG ASPART) SLIDING SCALE If C... ACHS SC 02/20/17 17:15 03/22/17 17:14 02/22/17 18:23 3 UNITS Insulin Glargine (Lantus Solostar Pen) HS SC 02/20/17 21:00 03/22/17 20:59 02/20/17 21:27 5 UNIT Octreotide Acetate (Sandostatin Inj) 50 mcg Q8H SQ 02/20/17 14:00 03/22/17 13:14 02/23/17 06:24 50 MCG Hydrocortisone (Cortef Tab) 20 mg PM PO 02/20/17 21:00 03/22/17 20:59 02/22/17 20:41 20 MG Hydromorphone HCl (Dilaudid Inj) 1 mg Q3HWA PRN IV 02/21/17 16:15 03/07/17 16:14 02/23/17 07:11 1 MG Magnesium Chloride (Slow-Mag Tab) 64 mg BID PO 02/22/17 21:00 03/24/17 20:59 02/23/17 09:05 64 MG Potassium/ Phosphorus/Sodium (Phospha 250 Neutral 155-852-130 Mg) 1 tab QID PO 02/22/17 13:00 03/24/17 12:59 02/23/17 09:04 1 TAB Fluoxetine HCl (Prozac Cap) 30 mg QAM PO 02/24/17 09:00 03/26/17 08:59 Hydroxyzine HCl (Vistaril Tab) 50 mg HSZ PRN PO 02/23/17 10:00 03/25/17 09:59 Sucralfate (Carafate Susp) 1 gm QID PO 02/23/17 13:00 03/25/17 12:59 Objective Vital Signs Date Time Temp Pulse Resp B/P Pulse Ox O2 Delivery O2 Flow Rate FiO2 02/23/17 07:45 36.6 64 16 127/70 96 Room Air 02/23/17 07:44 96 Room Air 02/23/17 07:30 Room Air 02/22/17 23:34 Room Air 02/22/17 22:56 37.1 67 16 135/67 96 Room Air 02/22/17 15:08 36.3 44 16 131/79 97 Room Air Physical Exam General Appearance: no apparent distress Eyes: PERRL ENT: hearing grossly normal Neck: supple, trachea midline Respiratory/Chest: lungs clear, no respiratory distress, no accessory muscle use Cardiovascular: regular rate, rhythm, no gallop, no JVD Abdomen: normal bowel sounds, soft, no organomegaly, + tenderness (generalized tenderness) Neurologic/Psych: alert, normal mood/affect, oriented x 3 Skin: normal color, no jaundice, no rash Laboratory Results Last 24 Hours Test 02/22/17 11:57 02/22/17 12:15 02/22/17 16:50 02/22/17 20:33 Bedside Glucose 113 mg/dl 161 mg/dl 98 mg/dl Potassium Level 3.6 mmol/L Test 02/23/17 06:20 02/23/17 08:00 White Blood Count 10.34 K/uL Red Blood Count 4.11 M/uL Hemoglobin 12.7 g/dL Hematocrit 36.9 % Mean Corpuscular Volume 89.8 fL Mean Corpuscular Hemoglobin 30.9 pg Mean Corpuscular Hemoglobin Concent 34.4 g/dl Platelet Count 139 K/uL Mean Platelet Volume 10.0 fL Neutrophils (%) (Auto) 77.1 % Lymphocytes (%) (Auto) 13.2 % Monocytes (%) (Auto) 9.0 % Eosinophils (%) (Auto) 0.3 % Basophils (%) (Auto) 0.0 % Neutrophils # (Auto) 7.97 K/uL Lymphocytes # (Auto) 1.37 K/uL Monocytes # (Auto) 0.93 K/uL Eosinophils # (Auto) 0.03 K/uL Basophils # (Auto) 0.00 K/uL RDW Standard Deviation 50.4 fL RDW Coefficient of Variation 15.3 % Immature Granulocyte % (Auto) 0.4 % Immature Granulocyte # (Auto) 0.04 K/uL Sodium Level 140 mmol/L Potassium Level 3.0 mmol/L Chloride Level 105 mmol/L Carbon Dioxide Level 25 mmol/L Anion Gap 10.0 mmol/L Blood Urea Nitrogen 5 mg/dl Creatinine 0.96 mg/dl Est Creatinine Clear Calc Drug Dose 80.8 ml/min Estimated GFR () 98.5 Estimated GFR (Non- 85.0 BUN/Creatinine Ratio 5.0 Random Glucose 114 mg/dl Calcium Level 7.8 mg/dl Phosphorus Level 2.6 mg/dl Magnesium Level 1.6 mg/dl Bedside Glucose 119 mg/dl Assessment and Plan Stool for fecal fat --> pancreatic enzyme if + IVF for hydration Low residue, low fat diet as tolerated Discussed FODMAP diet May d/c octreotide as it is not reducing symptoms hydrocortisone 20mg BID Hold PPI Hold NSAIDs Hold SSRI if appropriate No GI contraindication to discharge. GI to sign off. Please call with questions I saw and evaluated the patient, no change in symptoms today. Recomendations: d/co PPI consider d/c of SSRI Carafate 4 times daily stool for fecal fat consider D/C (long-standing probem)
[2017-02-23] MEDS: SUCRALFATE 1 GM/10 ML UDC PO SCH ×3 (12:55→21:00)
[2017-02-23 15:15] VITALS: BP 151/81; PULSE 58; TEMP 36.5; O2SAT 94
[2017-02-23 15:40] LABS: O&P GIARDIA AG NOT DETECTED (NOT DETECTED)
[2017-02-23 16:00] VITALS: O2SAT 94
--- NOTE | 2017-02-23 16:49 | Progress Note ---
Internal Med Progress Note Date of Service: Feb 23, 2017. Provider Documentation: SUBJECTIVE: rocael still has runny diarrhea and abdominal pain Dilaudid working fine says symptoms comes and goes if stable patient is ok for discharge in am OBJECTIVE: Vital Signs-as noted below Exam: General-alert and oriented x 3 ENT-normal hearing Neck-no neck masses Lungs-cta b/l no wheezing no crackles Heart-s1 and s2 heard regular rate and rhythm no murmurs' Abdomen-soft bowel sounds present lower abdominal discomfort no distension Extremities-no edema no erythema Neuro-alert and awake moves extremities Lab data as noted below. ASSESSMENT & PLAN: 61 year old male with history of Ulcerative Colitis, Chronic Intermittent Prednisone Use, Adrenal Insufficiency, CAD, DM 2 on Insulin, HTN, COPD, presenting with persistent abdominal pain and diarrhea x 2 weeks at least POSSIBLE ULCERATIVE COLITIS FLARE UP c diff negative stool cx negative so far on iv fluids and steroids GI on board s/p coloscopy02/20/17 and seems unremarkable on Sandostatin pain control still having diarrhea and abdominal pain GI recommends to stop Protonix and Prozac but patient wants to be on them Sandostatin stopped further recommendations as per GI plan for d/c in am if stable Stable conditions: ADRENAL INSUFFICIENCY Most likely from chronic intermittent prednisone courses On home Hydrocortisone 20mg in am, 10mg in PM will monitor. stable WORSENING DEPRESSION recent in the family, medical condition consulted and appreciate inputs plan to taper off Zoloft and start on Prozac. GI recommends to stop SSRI as they can cause microscopic colitis but patient says he is currently undergoing lot of stress secondary to in family and he wants to be on it. HISTORY OF CAD stable on Aspirin, Metoprolol, Lisinopril, ISMN holding Statin DM 2 on Lantus and Apidra at home ISS for now while on clear liquids Pharm consulted will monitor HTN On , Metoprolol, Lisinopril, and nitrates PRN Clonidine COPD stable on Spiriva, Breo PRN nebs Full Code DVT PROPHYLAXIS scds for now DISPOSITION expect to d/c home and followup with pcp and GI possible d/c in am ambulate in hallways Vital Signs: Date Time Temp Pulse Resp B/P Pulse Ox O2 Delivery O2 Flow Rate FiO2 02/23/17 15:15 36.5 58 18 151/81 94 Room Air 02/23/17 07:45 36.6 64 16 127/70 96 Room Air 02/23/17 07:44 96 Room Air 02/23/17 07:30 Room Air 02/22/17 23:34 Room Air 02/22/17 22:56 37.1 67 16 135/67 96 Room Air Lab Results: Results Past 24 Hours Test 02/22/17 16:50 02/22/17 20:33 02/23/17 06:20 02/23/17 08:00 Range/Units Bedside Glucose 161 98 119 70-99 mg/dl White Blood Count 10.34 4.8-10.8 K/uL Red Blood Count 4.11 4.7-6.1 M/uL Hemoglobin 12.7 14.0-18.0 g/dL Hematocrit 36.9 42-52 % Mean Corpuscular Volume 89.8 80-100 fL Mean Corpuscular Hemoglobin 30.9 25-34 pg Mean Corpuscular Hemoglobin Concent 34.4 32-36 g/dl Platelet Count 139 130-400 K/uL Mean Platelet Volume 10.0 7.4-10.4 fL Neutrophils (%) (Auto) 77.1 % Lymphocytes (%) (Auto) 13.2 % Monocytes (%) (Auto) 9.0 % Eosinophils (%) (Auto) 0.3 % Basophils (%) (Auto) 0.0 % Neutrophils # (Auto) 7.97 1.4-6.5 K/uL Lymphocytes # (Auto) 1.37 1.2-3.4 K/uL Monocytes # (Auto) 0.93 0.11-0.59 K/uL Eosinophils # (Auto) 0.03 0-0.5 K/uL Basophils # (Auto) 0.00 0-0.2 K/uL RDW Standard Deviation 50.4 36.4-46.3 fL RDW Coefficient of Variation 15.3 11.5-14.5 % Immature Granulocyte % (Auto) 0.4 % Immature Granulocyte # (Auto) 0.04 0.00-0.02 K/uL Sodium Level 140 136-145 mmol/L Potassium Level 3.0 3.5-5.1 mmol/L Chloride Level 105 98-107 mmol/L Carbon Dioxide Level 25 21-32 mmol/L Anion Gap 10.0 3-11 mmol/L Blood Urea Nitrogen 5 7-18 mg/dl Creatinine 0.96 0.60-1.40 mg/dl Est Creatinine Clear Calc Drug Dose 80.8 ml/min Estimated GFR () 98.5 Estimated GFR (Non- 85.0 BUN/Creatinine Ratio 5.0 10-20 Random Glucose 114 70-99 mg/dl Calcium Level 7.8 8.5-10.1 mg/dl Phosphorus Level 2.6 2.5-4.9 mg/dl Magnesium Level 1.6 1.8-2.4 mg/dl Test 02/23/17 11:56 02/23/17 12:50 Range/Units Bedside Glucose 118 70-99 mg/dl
[2017-02-23] MEDS: INSULIN GLARGINE SOLOSTAR 100 UNITS/ML 3 ML PEN SC SCH (21:00)
[2017-02-23 21:07] VITALS: BP 150/88; PULSE 66
[2017-02-23 23:00] VITALS: BP 140/71; PULSE 60; TEMP 36.9; O2SAT 96
[2017-02-24] MEDS: HYDROmorphone INJ 1 MG/ML SYR IV PRN ×4 (00:04→20:26)
[2017-02-24] MEDS: OCTREOTIDE ACETATE 100 MCG/ML VIAL SQ SCH ×3 (06:33→21:46)
[2017-02-24 07:05] VITALS: BP 163/81; PULSE 60; TEMP 36.7; O2SAT 96
[2017-02-24] MEDS: SODIUM CHLORIDE 0.9% 1000ML 1,000 ML IV SCH ×2 (07:53→16:24)
[2017-02-24 08:39] LABS: BASO % 0.1 %; BASO ABS # 0.01 K/uL (0-0.2); COMPLETE YES; HEMATOCRIT 37.8 % (42-52); IG% 0.5 %; LYMPH % 17.3 %; MEAN CELL VOLUME 89.8 fL (80-100); MEAN CORPUSCULAR HEMOGLOBIN 31.1 pg (25-34); MEAN CORPUSCULAR HGB CONC 34.7 g/dl (32-36); MEAN PLATELET VOLUME 10.4 fL (7.4-10.4); NEUT % 68.1 %; PLATELET COUNT 147 K/uL (130-400); RED BLOOD COUNT 4.21 M/uL (4.7-6.1); WHITE BLOOD COUNT 8.67 K/uL (4.8-10.8)
[2017-02-24 09:05] LABS: BUN/CREATININE RATIO 5.2 (10-20); CREATININE 0.89 mg/dl (0.60-1.40); MAGNESIUM 1.2 mg/dl (1.8-2.4); POTASSIUM 2.6 mmol/L (3.5-5.1)
[2017-02-24] MEDS: HYDROCORTISONE 10 MG TAB PO SCH ×2 (09:38→20:30)
[2017-02-24] MEDS: POT PHOSPHATE MONOBASIC W/ SOD TAB PO SCH ×4 (09:38→20:31)
[2017-02-24] MEDS: TIOTROPIUM BROMIDE 5 PUFF/90 MCG INH INH SCH (09:38)
[2017-02-24] MEDS: ASPIRIN 81 MG CHEW PO SCH (09:39)
[2017-02-24] MEDS: SUCRALFATE 1 GM/10 ML UDC PO SCH ×4 (09:39→20:29)
[2017-02-24] MEDS: METOPROLOL TARTRATE 100 MG TAB PO SCH ×2 (09:39→20:31)
[2017-02-24] MEDS: FLUOXETINE HCL 10 MG CAP PO SCH (09:39)
[2017-02-24] MEDS: MAGNESIUM CHLORIDE 64MG DELAYED REL TAB PO SCH ×2 (09:40→21:04)
[2017-02-24] MEDS: CHOLESTYRAMINE LIGHT 4 GM PKT PO SCH ×4 (09:40→20:32)
[2017-02-24] MEDS: RANITIDINE HCL 150 MG TAB PO SCH ×2 (09:40→20:33)
[2017-02-24] MEDS: LISINOPRIL 5 MG TAB PO SCH (09:40)
[2017-02-24] MEDS: ISOSORBIDE MONONITRATE 60 MG TABCR PO SCH (09:40)
[2017-02-24] MEDS: INSULIN ASPART 100 UNITS/ML 3 ML PEN SC SCH ×4 (09:46→21:00)
[2017-02-24] MEDS ORDERED: POTASSIUM PHOS 3 MMOL/1 ML INFUSION IV STA (12:28)
--- NOTE | 2017-02-24 12:52 | Progress Note ---
Internal Med Progress Note Date of Service: Feb 24, 2017. Provider Documentation: SUBJECTIVE: had bad diarrhea last night afebrile still has abdominal pain diarrhea somewhat better today morning waiting to get better to fly to [place] to attend his nephew's next week. OBJECTIVE: Vital Signs-as noted below Exam: General-alert and oriented x 3 ENT-normal hearing Neck-no neck masses Lungs-cta b/l no wheezing no crackles Heart-s1 and s2 heard regular rate and rhythm no murmurs' Abdomen-soft bowel sounds present lower abdominal discomfort no distension Extremities-no edema no erythema Neuro-alert and awake moves extremities Lab data as noted below. ASSESSMENT & PLAN: 61 year old male with history of Ulcerative Colitis, Chronic Intermittent Prednisone Use, Adrenal Insufficiency, CAD, DM 2 on Insulin, HTN, COPD, presenting with persistent abdominal pain and diarrhea x 2 weeks at least POSSIBLE ULCERATIVE COLITIS/Microscopic colitis FLARE UP c diff negative stool cx negative so far on iv fluids and steroids GI on board s/p coloscopy02/20/17 and seems unremarkable on Sandostatin pain control still having diarrhea and abdominal pain GI recommends to stop Protonix and Prozac as they can cause microscopic colitis but patient wants to be on them Sandostatin stopped Protonix stopped and placed on sucralfate and Zantac further recommendations as per GI still having diarrhea and abdominal pain plan for d/c in am if stable Electrolyte abnormalities secondary to diarrhea will replace f/u labs in am ADRENAL INSUFFICIENCY Most likely from chronic intermittent prednisone courses On home Hydrocortisone 20mg in am, 10mg in PM will monitor. stable WORSENING DEPRESSION recent in the family, medical condition consulted and appreciate inputs plan to taper off Zoloft and start on Prozac. GI recommends to stop SSRI as they can cause microscopic colitis but patient says he is currently undergoing lot of stress secondary to in family and he wants to be on it. HISTORY OF CAD stable on Aspirin, Metoprolol, Lisinopril, ISMN holding Statin DM 2 on Lantus and Apidra at home ISS for now while on clear liquids Pharm consulted will monitor HTN On , Metoprolol, Lisinopril, and nitrates PRN Clonidine COPD stable on Spiriva, Breo PRN nebs Full Code DVT PROPHYLAXIS scds for now DISPOSITION expect to d/c home and followup with pcp and GI possible d/c soon ambulate in hallways Vital Signs: Date Time Temp Pulse Resp B/P Pulse Ox O2 Delivery O2 Flow Rate FiO2 02/24/17 08:26 Room Air 02/24/17 07:05 36.7 60 17 163/81 96 Room Air 02/23/17 23:55 Room Air 02/23/17 23:00 36.9 60 14 140/71 96 Room Air 02/23/17 21:07 66 150/88 02/23/17 16:00 94 Room Air 02/23/17 15:15 36.5 58 18 151/81 94 Room Air Lab Results: Results Past 24 Hours Test 02/23/17 12:50 02/23/17 17:19 02/23/17 21:01 02/24/17 07:51 Range/Units Bedside Glucose 131 87 70-99 mg/dl White Blood Count 8.67 4.8-10.8 K/uL Red Blood Count 4.21 4.7-6.1 M/uL Hemoglobin 13.1 14.0-18.0 g/dL Hematocrit 37.8 42-52 % Mean Corpuscular Volume 89.8 80-100 fL Mean Corpuscular Hemoglobin 31.1 25-34 pg Mean Corpuscular Hemoglobin Concent 34.7 32-36 g/dl Platelet Count 147 130-400 K/uL Mean Platelet Volume 10.4 7.4-10.4 fL Neutrophils (%) (Auto) 68.1 % Lymphocytes (%) (Auto) 17.3 % Monocytes (%) (Auto) 13.0 % Eosinophils (%) (Auto) 1.0 % Basophils (%) (Auto) 0.1 % Neutrophils # (Auto) 5.90 1.4-6.5 K/uL Lymphocytes # (Auto) 1.50 1.2-3.4 K/uL Monocytes # (Auto) 1.13 0.11-0.59 K/uL Eosinophils # (Auto) 0.09 0-0.5 K/uL Basophils # (Auto) 0.01 0-0.2 K/uL RDW Standard Deviation 50.0 36.4-46.3 fL RDW Coefficient of Variation 15.2 11.5-14.5 % Immature Granulocyte % (Auto) 0.5 % Immature Granulocyte # (Auto) 0.04 0.00-0.02 K/uL Sodium Level 141 136-145 mmol/L Potassium Level 2.6 3.5-5.1 mmol/L Chloride Level 103 98-107 mmol/L Carbon Dioxide Level 26 21-32 mmol/L Anion Gap 12.0 3-11 mmol/L Blood Urea Nitrogen 5 7-18 mg/dl Creatinine 0.89 0.60-1.40 mg/dl Est Creatinine Clear Calc Drug Dose 87.2 ml/min Estimated GFR () 107.0 Estimated GFR (Non- 92.3 BUN/Creatinine Ratio 5.2 10-20 Random Glucose 122 70-99 mg/dl Calcium Level 8.0 8.5-10.1 mg/dl Phosphorus Level 2.0 2.5-4.9 mg/dl Magnesium Level 1.2 1.8-2.4 mg/dl Test 02/24/17 07:56 02/24/17 11:52 Range/Units Bedside Glucose 120 84 70-99 mg/dl
[2017-02-24] MEDS ORDERED: POTASSIUM CHLORIDE 20 MEQ TABCR PO ONE (13:00)
[2017-02-24] MEDS: POTASSIUM CHLR 10 MEQ / WTR 10 MEQ in PREMIXED WATER 100 ML IV SCH ×4 (13:48→19:06)
[2017-02-24] MEDS: MAGNESIUM SULFATE 1GM / D5W 1 GM in PREMIXED IN D5W 100 ML IV SCH ×3 (13:49→17:48)
[2017-02-24 15:27] VITALS: BP 121/71; PULSE 62; TEMP 36.6; O2SAT 95
[2017-02-24] MEDS ORDERED: POTASSIUM PHOSPHATE INJ 24 MMOL in SODIUM CHLORIDE 0.9% 500ML 500 ML IV SCH (18:00)
[2017-02-24 23:15] VITALS: BP 160/85; PULSE 61; TEMP 36.8; O2SAT 94
[2017-02-25] MEDS: SODIUM CHLORIDE 0.9% 1000ML 1,000 ML IV SCH ×4 (00:39→23:44)
[2017-02-25] MEDS: HYDROmorphone INJ 1 MG/ML SYR IV PRN ×4 (00:39→23:45)
[2017-02-25 01:00] VITALS: BP 144/75; PULSE 73
[2017-02-25] MEDS: OCTREOTIDE ACETATE 100 MCG/ML VIAL SQ SCH ×3 (06:44→21:37)
[2017-02-25] MEDS: METOPROLOL TARTRATE 100 MG TAB PO SCH ×2 (07:39→20:38)
[2017-02-25] MEDS: POT PHOSPHATE MONOBASIC W/ SOD TAB PO SCH ×4 (07:39→20:38)
[2017-02-25] MEDS: FLUOXETINE HCL 10 MG CAP PO SCH (07:40)
[2017-02-25] MEDS: ASPIRIN 81 MG CHEW PO SCH (07:40)
[2017-02-25] MEDS: HYDROCORTISONE 10 MG TAB PO SCH ×2 (07:40→20:34)
[2017-02-25] MEDS: CHOLESTYRAMINE LIGHT 4 GM PKT PO SCH ×4 (07:40→20:39)
[2017-02-25] MEDS: RANITIDINE HCL 150 MG TAB PO SCH ×2 (07:41→20:37)
[2017-02-25] MEDS: LISINOPRIL 5 MG TAB PO SCH (07:41)
[2017-02-25] MEDS: ISOSORBIDE MONONITRATE 60 MG TABCR PO SCH (07:41)
[2017-02-25] MEDS: SUCRALFATE 1 GM/10 ML UDC PO SCH ×4 (07:42→20:33)
[2017-02-25 07:57] VITALS: BP 122/78; PULSE 59; TEMP 36.8; O2SAT 95
[2017-02-25] MEDS: TIOTROPIUM BROMIDE 5 PUFF/90 MCG INH INH SCH (08:15)
[2017-02-25] MEDS: MAGNESIUM CHLORIDE 64MG DELAYED REL TAB PO SCH ×2 (08:15→20:38)
[2017-02-25 08:29] LABS: CALCIUM 7.6 mg/dl (8.5-10.1); CREATININE 0.84 mg/dl (0.60-1.40); POTASSIUM 3.2 mmol/L (3.5-5.1)
[2017-02-25] MEDS: INSULIN ASPART 100 UNITS/ML 3 ML PEN SC SCH ×4 (09:13→20:55)
[2017-02-25 09:34] VITALS: O2SAT 95
[2017-02-25] MEDS ORDERED: POTASSIUM CHLORIDE 10 MEQ TABCR PO ONE (10:30)
--- NOTE | 2017-02-25 15:08 | Pharmacy Progress Note ---
Glycemic Control: Progress Nt Date of Service Feb 25, 2017. Scope Glycemic Pharmacist consulted by Dr Rider on 02/19/17 for glycemic control and to write orders per [facility] inpatient glycemic control protocol. Objective Accuchecks BSG (last 24hrs): Test 02/24/17 17:24 02/24/17 21:03 02/25/17 07:39 02/25/17 08:20 Bedside Glucose 197 mg/dl (70-99) 80 mg/dl (70-99) 173 mg/dl (70-99) Random Glucose 161 mg/dl (70-99) Test 02/25/17 12:12 Bedside Glucose 79 mg/dl (70-99) Laboratory Data (last 24hrs) HbA1c: Test 02/20/17 06:05 Hemoglobin A1c 7.0 % (4.5-5.6) H Recent Pertinent Medications Outpatient Anti-diabetic Regimen: * Lantus 10-20 units SQ HS * Humalog 5 units SQ BIDM The patient is currently receiving: * Basal insulin: N/A none required * Correctional Insulin: Novolog Correction per scale ACHS Goal Range: Low 120 mg/dL - High 160 mg/dL Correction Factor: 40 mg/dL/unit * Prandial insulin: Per carb ratio of 1 unit per 20 grams CHO consumed Risk Factors for Insulin Resistance: * Steroids * Octreotide * Diet Assessment & Plan ASSESSMENT: * 61yo T2DM male with adequate degree of outpatient control per recent A1c * Pt has been requiring less than 10 units of insulin per day with adequate control * No basal insulin has been required but AM fasting BSG slightly elevated today --> may need to consider resuming basal insulin if BSG > 180mg/dl * Post-prandial BSGs fluctuate greatly 84 --> 197 --> 80 yesterday. No CHO coverage is given when BSG below goal range because it is subtracted off. This results in post-prandial hyperglycemia. Will lower low end of goal range and re- assess tomorrow. May need to tighten just lunch time CR to prevent hyperglycemia prior to dinner. * ADA & AACE recommend a goal blood sugar range 140-180 mg/dl for the majority of critically ill & non-critically ill patients. However, more stringent targets may be selected in individual cases. Will utilize more stringent goal range of 100-160mg/dl based on age and tight glycemic control at baseline. PLAN FOR INPATIENT GLYCEMIC CONTROL: * No basal insulin needed at this time * May consider resuming if AM fasting BSG > 180mg/dl * NovoLog per scale ACHS or Q6hrs while NPO * Goal Range: Low 100 mg/dL - High 160 mg/dL * Correction Factor: 40 mg/dL/unit * Nutritional / Prandial insulin per carb ratio of 1 unit per 20 grams CHO consumed * Please note that the plan above was derived based on current level of insulin resistance and hospital stress. These recommendations are appropriate for inpatient admission only. Plan of care upon discharge will need to be reassessed to avoid potential outpatient hypo/hyperglycemia. Thank you.
[2017-02-25 16:30] VITALS: BP 157/77; PULSE 64; TEMP 36.9; O2SAT 97
--- NOTE | 2017-02-25 17:39 | Progress Note ---
Internal Med Progress Note Date of Service: Feb 25, 2017. Provider Documentation: SUBJECTIVE: The patient was seen and examined Complains of Abdominal pain but less intense today Still has diarrhea OBJECTIVE: Vital Signs-as noted below Exam: General-no distress at rest Eyes-normal ENT-normal Neck-supple Lungs-clear to ausucltate bilaterally Heart-Regular,nom murmur appreciated Abdomen-Soft ,tender LLQ Extremities-trace edema bilaterally Neuro-AAOx3 Lab data as noted below. ASSESSMENT & PLAN: POSSIBLE ULCERATIVE COLITIS/Microscopic colitis FLARE UP -c diff negative,stool cx negative so far -continue with iv fluids and steroids -Appreciate GI -s/p coloscopy02/20/17 and seems unremarkable -still having diarrhea and abdominal pain -was on Sandostatin ,Sandostatin stopped -Protonix stopped and placed on sucralfate and Zantac -likely to discharge tomorrow Electrolyte abnormalities secondary to diarrhea will replace f/u labs in am ADRENAL INSUFFICIENCY Most likely from chronic intermittent prednisone courses On home Hydrocortisone 20mg in am, 10mg in PM WORSENING DEPRESSION -recent in the family, medical condition -Psychiatry consulted and appreciate inputs -plan to taper off Zoloft and start on Prozac. -GI recommends to stop SSRI as they can cause microscopic colitis but patient says he is currently undergoing lot of stress secondary to in family and he wants to be on it. HISTORY OF CAD -stable on Aspirin, Metoprolol, Lisinopril, ISMN -holding Statin -No acute symptoms DM 2 -on Lantus and Apidra at home ISS for now while on clear liquids Pharm consulted-appreciate input HTN On , Metoprolol, Lisinopril, and nitrates PRN Clonidine COPD stable on Spiriva, Breo PRN nebs Full Code DVT PROPHYLAXIS scds for now DISPOSITION expect to d/c home and followup with pcp and GI possible d/c soon ambulate in hallways Vital Signs: Date Time Temp Pulse Resp B/P Pulse Ox O2 Delivery O2 Flow Rate FiO2 02/25/17 17:00 Room Air 02/25/17 16:30 36.9 64 16 157/77 97 Room Air 02/25/17 09:34 95 Room Air 02/25/17 07:57 36.8 59 16 122/78 95 Room Air 02/25/17 01:00 73 144/75 02/25/17 00:30 Room Air 02/24/17 23:15 36.8 61 18 160/85 94 Room Air Lab Results: Results Past 24 Hours Test 02/24/17 21:03 02/25/17 07:39 02/25/17 08:20 02/25/17 12:12 Range/Units Bedside Glucose 80 173 79 70-99 mg/dl Sodium Level 140 136-145 mmol/L Potassium Level 3.2 3.5-5.1 mmol/L Chloride Level 105 98-107 mmol/L Carbon Dioxide Level 26 21-32 mmol/L Anion Gap 9.0 3-11 mmol/L Blood Urea Nitrogen 3 7-18 mg/dl Creatinine 0.84 0.60-1.40 mg/dl Est Creatinine Clear Calc Drug Dose 92.3 ml/min Estimated GFR () 109.5 Estimated GFR (Non- 94.5 BUN/Creatinine Ratio 4.0 10-20 Random Glucose 161 70-99 mg/dl Calcium Level 7.6 8.5-10.1 mg/dl Test 02/25/17 17:08 Range/Units Bedside Glucose 142 70-99 mg/dl
[2017-02-25 20:45] VITALS: BP 165/81; PULSE 72
[2017-02-25 23:06] VITALS: BP 148/76; PULSE 67; TEMP 36.7; O2SAT 97
[2017-02-26] MEDS: HYDROmorphone INJ 1 MG/ML SYR IV PRN ×3 (03:00→21:58)
[2017-02-26] MEDS: OCTREOTIDE ACETATE 100 MCG/ML VIAL SQ SCH (05:57)
[2017-02-26 07:05] VITALS: BP 147/86; PULSE 90; TEMP 36.7; O2SAT 91
[2017-02-26] MEDS: METOPROLOL TARTRATE 100 MG TAB PO SCH ×2 (07:46→21:47)
[2017-02-26] MEDS: CHOLESTYRAMINE LIGHT 4 GM PKT PO SCH ×4 (07:46→21:42)
[2017-02-26] MEDS: ISOSORBIDE MONONITRATE 60 MG TABCR PO SCH (07:47)
[2017-02-26] MEDS: FLUOXETINE HCL 10 MG CAP PO SCH (07:47)
[2017-02-26] MEDS: RANITIDINE HCL 150 MG TAB PO SCH ×2 (07:47→21:43)
[2017-02-26] MEDS: LISINOPRIL 5 MG TAB PO SCH (07:47)
[2017-02-26] MEDS: MAGNESIUM CHLORIDE 64MG DELAYED REL TAB PO SCH ×2 (07:48→21:43)
[2017-02-26] MEDS: SUCRALFATE 1 GM/10 ML UDC PO SCH ×4 (07:48→21:42)
[2017-02-26] MEDS: POT PHOSPHATE MONOBASIC W/ SOD TAB PO SCH ×4 (07:48→21:42)
[2017-02-26] MEDS: HYDROCORTISONE 10 MG TAB PO SCH ×2 (07:48→21:48)
[2017-02-26] MEDS: ASPIRIN 81 MG CHEW PO SCH (07:48)
[2017-02-26] MEDS: TIOTROPIUM BROMIDE 5 PUFF/90 MCG INH INH SCH (07:50)
[2017-02-26] MEDS: SODIUM CHLORIDE 0.9% 1000ML 1,000 ML IV SCH ×3 (07:54→23:43)
--- NOTE | 2017-02-26 09:33 | Pharmacy Progress Note ---
Pharmacy Glycemic Sign Off Nt Date of Service Feb 26, 2017. Assessment & Plan ASSESSMENT: * Pharmacy was consulted by Dr Rider on 02/19/17 for glycemic control and to write orders per [facility] inpatient glycemic control protocol. * Major changes made by pharmacy to antidiabetic regimen include: * holding basal insulin while admitted secondary to lower insulin needs while hospitalized * Patient has been receiving 5-7 units of insulin per day for adequate glycemic control * BSGs ranging 79-161 mg/dl * Regimen has only required minor adjustments over the past 48hrs to achieve this level of control - bottom end of goal range lowered and HS Accu-check removed are only changes in last 48 hours * Do not anticipate further changes in patient status that would quickly deteriorate glycemic control (i.e. patient to be NPO for upcoming procedure, steroids tapering, starting tube feedings, etc). * Please see recommendations for outpatient antidiabetic regimen below. PLAN FOR INPATIENT GLYCEMIC CONTROL: No changes needed to current regimen. * Continue to forgo basal insulin at this time * Continue NovoLog per scale AC only * Goal range = 100 - 160 mg/dl * CF = 40 mg/dl/unit * CR = 1 unit for ever 20 g CHO consumed * A1c added to discharge instructions to be communicated to PCP. * Pharmacy is signing off of glycemic consult and will no longer be making adjustments to inpatient regimen. Please feel free to re-consult if needed. Thank you. DISCHARGE RECOMMENDATIONS: * A1c 7 % on 02/20/17 * Can likely resume home regimen at discharge (restart basal insulin at that time)
[2017-02-26] MEDS: INSULIN ASPART 100 UNITS/ML 3 ML PEN SC SCH ×3 (09:35→17:15)
--- NOTE | 2017-02-26 10:14 | Gastroenterology Progress Note ---
Progress Note Date of Service: Feb 26, 2017 Subjective Pt evaluation today including: conversation w/ patient, physical exam, chart review, lab review GI was asked to re-evaluate Mr. Urbina for persistent diarrhea and persistent abdominal pain. Pt was seen and evaluated at 1030. Reports his abdominal pain is unchanged since admission. Still experiencing mild bilateral lower quadrant abdominal pain, worse in RLQ that is intermittent and cramping. Slightly relieved with his BMs. He reports his BMs are increased since admission "at least 20 times in the morning". Stools are always loose. No black or bloody stools. More than 30 BMs daily. During this admission, he was maintained on steroids, Lomotil and cholestyramine. His steroid dose was increased by 10mg. No relief. Trial of octreotide and bowels were unchanged. Suggested an outpatient fecal elastase as [facility] does not have this test. Fecal fat was obtained in house and normal - <100 tiny fat globules, between 1 and 4 microns in diameter, observed microscopically per high power field. Review of Systems Constitutional: No chills, No fever Respiratory: No cough, No shortness of breath Cardiac: No chest pain, No edema Abdomen: + diarrhea, + pain, No GI bleeding, No constipation, No nausea, No vomiting Medications Current Inpatient Medications Medications (Trade) Dose Ordered Sig/Tisha Route Start Time Stop Time Status Last Admin Dose Admin Acetaminophen 650 mg 650 mg Q4H PRN PO 02/19/17 15:30 03/21/17 15:29 02/22/17 03:48 650 MG Sodium Chloride (Nss 1000ml) 1,000 ml @ 125 mls/hr Q8H IV 02/19/17 16:00 03/21/17 15:59 02/26/17 07:54 125 MLS/HR Glucose (Glucose 40% Gel) 15-30 GRAMS 15 GRAMS... UD PRN PO 02/19/17 16:15 03/21/17 16:14 Glucose (Glucose Chew Tab) 4-8 Tablets 4 Tabl... UD PRN PO 02/19/17 16:15 03/21/17 16:14 Dextrose (Dextrose 50% 50ML Syringe) 25-50ML OF 50% DW IV FOR... UD PRN IV 02/19/17 16:15 03/21/17 16:14 Glucagon (Glucagon Inj) 1 mg UD PRN SQ 02/19/17 16:15 03/21/17 16:14 Miscellaneous Information (Consult Glycemic Management Pharmacy) 1 ea UD PRN N/A 02/19/17 16:15 03/21/17 16:14 Clonidine HCl (Catapres Tab) 0.1 mg Q6H PRN PO 02/19/17 16:15 03/21/17 16:14 Ipratropium [place] (Atrovent 0.02% 0.5MG/2.5ML Neb) 0.5 mg Q4H PRN INH 02/19/17 16:15 03/21/17 16:14 Levalbuterol (Xopenex 1.25MG/ 0.5ML Neb) 1.25 mg Q4H PRN INH 02/19/17 16:15 03/21/17 16:14 Aspirin (Aspirin Chew) 81 mg QAM PO 02/20/17 09:00 03/22/17 08:59 02/26/17 07:48 81 MG Hydrocortisone (Cortef Tab) 20 mg DAILY PO 02/20/17 09:00 03/22/17 08:59 02/26/17 07:48 20 MG Isosorbide Mononitrate (Imdur Ext Rel Tab) 60 mg QAM PO 02/20/17 09:00 03/22/17 08:59 02/26/17 07:47 60 MG Lisinopril (Zestril Tab) 5 mg QAM PO 02/20/17 09:00 03/22/17 08:59 02/26/17 07:47 5 MG Metoprolol Tartrate (Lopressor Tab) 100 mg BID PO 02/19/17 21:00 03/21/17 20:59 02/26/17 07:46 100 MG Ranitidine HCl (zANTac TAB) 150 mg BID PO 02/19/17 21:00 03/21/17 20:59 02/26/17 07:47 150 MG Tiotropium [place] (Spiriva Handihaler Inhaler) 1 puff QAM INH 02/20/17 09:00 03/22/17 08:59 02/26/17 07:50 1 PUFF Cholestyramine Resin (Questran Powder Light) 4 gm QID PO 02/19/17 17:00 03/21/17 16:59 02/26/17 07:46 4 GM Miscellaneous Information (Order Awaiting Action) 1 ea TID N/A 02/19/17 17:00 03/21/17 16:59 Octreotide Acetate (Sandostatin Inj) 50 mcg Q8H SQ 02/20/17 14:00 03/22/17 13:14 02/26/17 05:57 50 MCG Hydrocortisone (Cortef Tab) 20 mg PM PO 02/20/17 21:00 03/22/17 20:59 02/25/17 20:34 20 MG Hydromorphone HCl (Dilaudid Inj) 1 mg Q3HWA PRN IV 02/21/17 16:15 03/07/17 16:14 02/26/17 03:00 1 MG Magnesium Chloride (Slow-Mag Tab) 64 mg BID PO 02/22/17 21:00 03/24/17 20:59 02/26/17 07:48 64 MG Potassium/ Phosphorus/Sodium (Phospha 250 Neutral 155-852-130 Mg) 1 tab QID PO 02/22/17 13:00 03/24/17 12:59 02/26/17 07:48 1 TAB Fluoxetine HCl (Prozac Cap) 30 mg QAM PO 02/24/17 09:00 03/26/17 08:59 02/26/17 07:47 30 MG Hydroxyzine HCl (Vistaril Tab) 50 mg HSZ PRN PO 02/23/17 10:00 03/25/17 09:59 Sucralfate (Carafate Susp) 1 gm QID PO 02/23/17 13:00 03/25/17 12:59 02/26/17 07:48 1 GM Insulin Aspart (novoLOG ASPART) SLIDING SCALE If C... AC SC 02/26/17 12:00 03/28/17 11:59 Objective Vital Signs Date Time Temp Pulse Resp B/P Pulse Ox O2 Delivery O2 Flow Rate FiO2 02/26/17 08:00 Room Air 02/26/17 07:05 36.7 90 16 147/86 91 Room Air 02/25/17 23:33 Room Air 02/25/17 23:06 36.7 67 16 148/76 97 Room Air 02/25/17 20:45 72 165/81 02/25/17 17:00 Room Air 02/25/17 16:30 36.9 64 16 157/77 97 Room Air Physical Exam General Appearance: + mild distress (patient is very stressed ) Eyes: PERRL ENT: hearing grossly normal Neck: supple, trachea midline Respiratory/Chest: lungs clear, normal breath sounds, no respiratory distress, no accessory muscle use Cardiovascular: regular rate, rhythm, no edema, no gallop, no JVD Abdomen: normal bowel sounds, soft, no organomegaly, no pulsatile mass, + tenderness (generalized tenderness) Neurologic/Psych: alert, normal mood/affect, oriented x 3 Skin: normal color, no jaundice, warm/dry, no rash Laboratory Results Last 24 Hours Test 02/25/17 12:12 02/25/17 17:08 02/25/17 20:51 02/26/17 08:17 Bedside Glucose 79 mg/dl 142 mg/dl 97 mg/dl 127 mg/dl Test 02/26/17 09:40 Assessment and Plan Mr. Nuno Urbina with acute worsening of chronic diarrhea with hx of collagenous colitis and ulcerative colitis on cholestyramine four times daily, lomotil three times daily and 40 mg of steroids with negative c.diff on 02/17/17. Colonoscopy was repeated on 02/20/17 and biopsies were suggestive of microscopic colitis. Repeat stool culture and c.diff was ordered by the primary team. Will follow up these results. Stool for fecal fat --> normal --> fecal elastase as OP IVF for hydration Low residue, low fat diet as tolerated Discussed FODMAP diet hydrocortisone 20mg BID Continue lomotil Continue questran Hold PPI Hold NSAIDs Hold SSRI if appropriate No GI contraindication to discharge. GI to sign off. Please call with questions. I saws and evalauted the patient. We have been following his lymphocytic colitis -- his symptoms remains roughly the same. Recs: restart lomotil please call with questions.
[2017-02-26 10:32] LABS: HEMATOCRIT 36.2 % (42-52); MEAN CELL VOLUME 90.7 fL (80-100); MEAN CORPUSCULAR HEMOGLOBIN 30.6 pg (25-34); MEAN CORPUSCULAR HGB CONC 33.7 g/dl (32-36); MEAN PLATELET VOLUME 10.1 fL (7.4-10.4); PLATELET COUNT 153 K/uL (130-400); RED BLOOD COUNT 3.99 M/uL (4.7-6.1); WHITE BLOOD COUNT 7.86 K/uL (4.8-10.8)
[2017-02-26 10:55] LABS: BUN/CREATININE RATIO 5.7 (10-20); CALCIUM 7.8 mg/dl (8.5-10.1); CREATININE 0.96 mg/dl (0.60-1.40); MAGNESIUM 1.3 mg/dl (1.8-2.4); POTASSIUM 3.4 mmol/L (3.5-5.1)
[2017-02-26 10:58] LABS: ALB/GLOB RATIO 0.8 (0.9-2)
[2017-02-26] MEDS ORDERED: DIPHENOXYLATE/ATROPINE 2.5/0.025MG TAB PO PRN (12:00)
--- NOTE | 2017-02-26 13:58 | Progress Note ---
Internal Med Progress Note Date of Service: Feb 26, 2017. Provider Documentation: SUBJECTIVE: The patient was seen and examined Complains of Abdominal pain but less intense today Has been having profuse diarrhea since last night OBJECTIVE: Vital Signs-as noted below Exam: General-Moderate distress at rest Eyes-normal ENT-normal Neck-supple Lungs-clear to ausucltate bilaterally Heart-Regular,no murmur appreciated Abdomen-Soft ,tender LLQ but no rebound tenderness Extremities-trace edema bilaterally Neuro-AAOx3 Lab data as noted below. ASSESSMENT & PLAN: POSSIBLE ULCERATIVE COLITIS/Microscopic colitis FLARE UP -c diff negative,stool cx negative so far -continue with iv fluids and steroids -Appreciate GI input and recommendation -s/p coloscopy02/20/17 and seems unremarkable -was on Sandostatin ,Sandostatin stopped -Protonix stopped and placed on sucralfate and Zantac -not yet ready to be discharged -Has had more diarrhea and was evaluated by GI again today -repeat stool tests -medications ordered Electrolyte abnormalities secondary to diarrhea will replace again f/u labs in am ADRENAL INSUFFICIENCY Most likely from chronic intermittent prednisone courses On home Hydrocortisone 20mg in am, 10mg in PM WORSENING DEPRESSION -recent in the family, medical condition -Psychiatry consulted and appreciate inputs -plan to taper off Zoloft and start on Prozac. -GI recommends to stop SSRI as they can cause microscopic colitis but patient says he is currently undergoing lot of stress secondary to in family and he wants to be on it. HISTORY OF CAD -stable on Aspirin, Metoprolol, Lisinopril, ISMN -holding Statin -No acute symptoms DM 2 -on Lantus and Apidra at home ISS for now while on clear liquids Pharm consulted-appreciate input HTN On , Metoprolol, Lisinopril, and nitrates PRN Clonidine COPD stable on Spiriva, Breo PRN nebs Full Code DVT PROPHYLAXIS scds for now DISPOSITION expect to d/c home and followup with pcp and GI possible d/c soon ambulate in hallways likely discharge tomorrow Vital Signs: Date Time Temp Pulse Resp B/P Pulse Ox O2 Delivery O2 Flow Rate FiO2 02/26/17 11:16 Room Air 02/26/17 08:00 Room Air 02/26/17 07:05 36.7 90 16 147/86 91 Room Air 02/25/17 23:33 Room Air 02/25/17 23:06 36.7 67 16 148/76 97 Room Air 02/25/17 20:45 72 165/81 02/25/17 17:00 Room Air 02/25/17 16:30 36.9 64 16 157/77 97 Room Air Lab Results: Results Past 24 Hours Test 02/25/17 17:08 02/25/17 20:51 02/26/17 08:17 02/26/17 10:16 Range/Units Bedside Glucose 142 97 127 70-99 mg/dl White Blood Count 7.86 4.8-10.8 K/uL Red Blood Count 3.99 4.7-6.1 M/uL Hemoglobin 12.2 14.0-18.0 g/dL Hematocrit 36.2 42-52 % Mean Corpuscular Volume 90.7 80-100 fL Mean Corpuscular Hemoglobin 30.6 25-34 pg Mean Corpuscular Hemoglobin Concent 33.7 32-36 g/dl RDW Standard Deviation 50.9 36.4-46.3 fL RDW Coefficient of Variation 15.2 11.5-14.5 % Platelet Count 153 130-400 K/uL Mean Platelet Volume 10.1 7.4-10.4 fL Sodium Level 141 136-145 mmol/L Potassium Level 3.4 3.5-5.1 mmol/L Chloride Level 106 98-107 mmol/L Carbon Dioxide Level 28 21-32 mmol/L Anion Gap 7.0 3-11 mmol/L Blood Urea Nitrogen 6 7-18 mg/dl Creatinine 0.96 0.60-1.40 mg/dl Est Creatinine Clear Calc Drug Dose 80.8 ml/min Estimated GFR () 98.5 Estimated GFR (Non- 85.0 BUN/Creatinine Ratio 5.7 10-20 Random Glucose 123 70-99 mg/dl Calcium Level 7.8 8.5-10.1 mg/dl Magnesium Level 1.3 1.8-2.4 mg/dl Total Bilirubin 0.8 0.2-1 mg/dl Aspartate Amino Transf (AST/SGOT) 41 15-37 U/L Alanine Aminotransferase (ALT/SGPT) 39 12-78 U/L Alkaline Phosphatase 100 45-117 U/L Total Protein 5.8 6.4-8.2 gm/dl Albumin 2.5 3.4-5.0 gm/dl Globulin 3.3 2.5-4.0 gm/dl Albumin/Globulin Ratio 0.8 0.9-2 Test 02/26/17 11:50 Range/Units Bedside Glucose 109 70-99 mg/dl Microbiology Results 02/26/17 C.difficile Toxin B Gene (PCR), Received Pending 02/26/17 Shiga Toxin Test, Received Pending 02/26/17 Stool Culture, Received Pending
[2017-02-26] MEDS: POTASSIUM CHLR 10 MEQ / WTR 10 MEQ in PREMIXED WATER 100 ML IV SCH ×2 (14:24→16:36)
[2017-02-26] MEDS: MAGNESIUM SULFATE 1GM / D5W 1 GM in PREMIXED IN D5W 100 ML IV SCH ×2 (14:39→16:36)
[2017-02-26 16:38] VITALS: BP 151/83; PULSE 59; TEMP 36.7; O2SAT 97
[2017-02-26 21:48] VITALS: BP 145/79; PULSE 71
[2017-02-26 23:00] VITALS: BP 162/71; PULSE 66; TEMP 37; O2SAT 94
[2017-02-27] MEDS: HYDROmorphone INJ 1 MG/ML SYR IV PRN ×4 (01:06→22:18)
[2017-02-27 07:10] VITALS: BP 168/85; PULSE 57; TEMP 36.7; O2SAT 94
[2017-02-27] MEDS: SODIUM CHLORIDE 0.9% 1000ML 1,000 ML IV SCH (08:49)
[2017-02-27 08:56] VITALS: BP 109/69; PULSE 63
[2017-02-27] MEDS: ASPIRIN 81 MG CHEW PO SCH (08:57)
[2017-02-27] MEDS: SUCRALFATE 1 GM/10 ML UDC PO SCH ×4 (08:57→22:07)
[2017-02-27] MEDS: TIOTROPIUM BROMIDE 5 PUFF/90 MCG INH INH SCH (08:57)
[2017-02-27 08:58] LABS: BUN/CREATININE RATIO 5.4 (10-20); CALCIUM 7.8 mg/dl (8.5-10.1); CREATININE 0.84 mg/dl (0.60-1.40); MAGNESIUM 1.5 mg/dl (1.8-2.4); POTASSIUM 2.8 mmol/L (3.5-5.1)
[2017-02-27] MEDS: RANITIDINE HCL 150 MG TAB PO SCH ×2 (08:58→22:10)
[2017-02-27] MEDS: ISOSORBIDE MONONITRATE 60 MG TABCR PO SCH (08:58)
[2017-02-27] MEDS: POT PHOSPHATE MONOBASIC W/ SOD TAB PO SCH ×4 (08:58→22:11)
[2017-02-27] MEDS: HYDROCORTISONE 10 MG TAB PO SCH ×2 (08:58→22:10)
[2017-02-27] MEDS: FLUOXETINE HCL 10 MG CAP PO SCH (08:58)
[2017-02-27] MEDS: CHOLESTYRAMINE LIGHT 4 GM PKT PO SCH ×4 (08:58→22:07)
[2017-02-27] MEDS: MAGNESIUM CHLORIDE 64MG DELAYED REL TAB PO SCH ×2 (08:58→22:11)
[2017-02-27] MEDS: METOPROLOL TARTRATE 100 MG TAB PO SCH ×2 (08:58→22:10)
[2017-02-27] MEDS: LISINOPRIL 5 MG TAB PO SCH (08:59)
[2017-02-27] MEDS ORDERED: POTASSIUM CHLORIDE 10 MEQ TABCR PO STA (09:06)
[2017-02-27] MEDS ORDERED: MAGNESIUM SULFATE 1GM / D5W 2 GM in PREMIXED IN D5W 100 ML IV STA (09:06)
[2017-02-27] MEDS ORDERED: POTASSIUM CHLORIDE 20 MEQ TABCR PO STA (09:18)
[2017-02-27] MEDS: INSULIN ASPART 100 UNITS/ML 3 ML PEN SC SCH ×3 (10:01→18:51)
[2017-02-27] MEDS: MAGNESIUM SULFATE 1GM / D5W 1 GM in PREMIXED IN D5W 100 ML IV SCH ×2 (10:02→11:37)
[2017-02-27] MEDS ORDERED: NURSING VERBAL MED ORDER ONE (10:15)
[2017-02-27] MEDS ORDERED: POTASSIUM CHLORIDE 20 MEQ/15 ML UDC PO ONE (11:15)
[2017-02-27] MEDS ORDERED: DIPHENOXYLATE/ATROPINE 2.5/0.025MG TAB PO ONE (11:41)
[2017-02-27] MEDS: POTASSIUM CHLR 10 MEQ / WTR 10 MEQ in PREMIXED WATER 100 ML IV SCH ×2 (12:42→13:17)
[2017-02-27 14:59] VITALS: BP 126/77; PULSE 58; TEMP 36.4; O2SAT 96
--- NOTE | 2017-02-27 15:20 | Progress Note ---
Internal Med Progress Note Date of Service: Feb 27, 2017. Provider Documentation: SUBJECTIVE: The patient was seen and examined A little better today Still has Diarrhea OBJECTIVE: Vital Signs-as noted below Exam: General-Moderate distress at rest Eyes-normal ENT-normal Neck-supple Lungs-clear to ausucltate bilaterally Heart-Regular,no murmur appreciated Abdomen-Soft ,tender LLQ but no rebound tenderness Extremities-trace edema bilaterally Neuro-AAOx3 Lab data as noted below. ASSESSMENT & PLAN: POSSIBLE Lymphocytic COLITIS/Microscopic colitis FLARE UP -c diff negative,stool cx negative so far -continue with iv fluids and steroids -Appreciate GI input and recommendation -s/p coloscopy02/20/17 and seems unremarkable -was on Sandostatin ,Sandostatin stopped -Protonix stopped and placed on sucralfate and Zantac -not yet ready to be discharged -Has had more diarrhea and was evaluated by GI again today -repeat stool tests -Can have Lomotil and Imodium to control Diarrhea episodes Electrolyte abnormalities secondary to diarrhea will replace again f/u labs in am If electrolytes are better will discharge home this afternoon ADRENAL INSUFFICIENCY Most likely from chronic intermittent prednisone courses On home Hydrocortisone 20mg in am, 10mg in PM Will need OP Endocrine follow up WORSENING DEPRESSION -recent in the family, medical condition -Psychiatry consulted and appreciate inputs -plan to taper off Zoloft and start on Prozac. -GI recommends to stop SSRI as they can cause microscopic colitis but patient says he is currently undergoing lot of stress secondary to in family and he wants to be on it. HISTORY OF CAD -stable on Aspirin, Metoprolol, Lisinopril, ISMN -holding Statin -No acute symptoms DM 2 -on Lantus and Apidra at home ISS for now while on clear liquids Pharm consulted-appreciate input HTN On , Metoprolol, Lisinopril, and nitrates PRN Clonidine COPD stable on Spiriva, Breo PRN nebs Full Code DVT PROPHYLAXIS scds for now DISPOSITION expect to d/c home and followup with pcp and GI possible d/c soon ambulate in hallways Discharge this afternoon Vital Signs: Date Time Temp Pulse Resp B/P Pulse Ox O2 Delivery O2 Flow Rate FiO2 02/27/17 14:59 36.4 58 16 126/77 96 Room Air 02/27/17 08:56 63 109/69 02/27/17 07:25 Room Air 02/27/17 07:10 36.7 57 16 168/85 94 Room Air 02/26/17 23:47 Room Air 02/26/17 23:00 37.0 66 18 162/71 94 Room Air 02/26/17 21:48 71 145/79 02/26/17 16:38 36.7 59 16 151/83 97 Room Air 02/26/17 15:50 Room Air Lab Results: Results Past 24 Hours Test 02/26/17 17:14 02/26/17 20:40 02/27/17 08:02 02/27/17 08:21 Range/Units Bedside Glucose 120 126 141 70-99 mg/dl Sodium Level 140 136-145 mmol/L Potassium Level 2.8 3.5-5.1 mmol/L Chloride Level 105 98-107 mmol/L Carbon Dioxide Level 24 21-32 mmol/L Anion Gap 11.0 3-11 mmol/L Blood Urea Nitrogen 5 7-18 mg/dl Creatinine 0.84 0.60-1.40 mg/dl Est Creatinine Clear Calc Drug Dose 92.3 ml/min Estimated GFR () 109.5 Estimated GFR (Non- 94.5 BUN/Creatinine Ratio 5.4 10-20 Random Glucose 158 70-99 mg/dl Calcium Level 7.8 8.5-10.1 mg/dl Magnesium Level 1.5 1.8-2.4 mg/dl Test 02/27/17 12:21 02/27/17 15:00 Range/Units Bedside Glucose 136 70-99 mg/dl
[2017-02-27 16:20] LABS: BUN/CREATININE RATIO 6.1 (10-20); CALCIUM 8.1 mg/dl (8.5-10.1); CREATININE 0.92 mg/dl (0.60-1.40); MAGNESIUM 2.6 mg/dl (1.8-2.4); POTASSIUM 3.5 mmol/L (3.5-5.1)
--- NOTE | 2017-02-27 17:13 | Psychiatric Progress Notes ---
Psychiatric Progress Note Date of Service Feb 27, 2017. Notes ID: Patient reviewed with liaison nurse. Interim progress reviewed. CC: "it's all still too much" referring to family stressors HPI: disappointed to still be having pain and diarrhea, states his nephew's services have been postponed pending another autopsy so thankful he has more time to get back to [place]. Seems to allude to more ETOH use prior to admission, no signs/symptoms of withdrawal here. Admits to history of up to 10- 12 beers to assist with sleep which also reinforces decision not use benzos. previously agreed to secure guns. He continues to deny SI but worries about his appetite and not sleeping well at home. ROS: "the same" referring to diarrhea, denies tremor/sweats/diarrhea MSE: alert, cooperative, thoughts organized, no SI/HI/perez, still depressed/ tearful at times, brightened a bit talking about his and miniature ponies Imp: MDD, recurrent Plan: reviewed that GI concerned that SSRI could be some contributing to his colitis defer amylase/lipase to primary team, suspect ETOH use prior to admission more than previously reported d/c Prozac in favor of a trial of Remeron (to improve sleep and appetite) patient continues to decline therapy referral and desires med management with PCP office
[2017-02-27] MEDS ORDERED: LOPERAMIDE HCL 2 MG CAP PO ONE (18:00)
[2017-02-27] MEDS ORDERED: MIRTAZAPINE TAB 15 MG TAB PO SCH (21:00)
[2017-02-27] MEDS: DIPHENOXYLATE/ATROPINE 2.5/0.025MG TAB PO SCH (22:10)
[2017-02-27 22:42] VITALS: BP 137/71; PULSE 65; TEMP 37; O2SAT 96
[2017-02-28] MEDS: HYDROmorphone INJ 1 MG/ML SYR IV PRN ×3 (01:45→11:34)
[2017-02-28 07:05] VITALS: BP 159/75; PULSE 65; TEMP 37; O2SAT 96
[2017-02-28 08:55] LABS: CALCIUM 8.2 mg/dl (8.5-10.1); CREATININE 0.93 mg/dl (0.60-1.40); MAGNESIUM 1.7 mg/dl (1.8-2.4); POTASSIUM 2.9 mmol/L (3.5-5.1)
[2017-02-28] MEDS: TIOTROPIUM BROMIDE 5 PUFF/90 MCG INH INH SCH (08:59)
[2017-02-28] MEDS: SUCRALFATE 1 GM/10 ML UDC PO SCH ×2 (09:00→13:09)
[2017-02-28] MEDS: HYDROCORTISONE 10 MG TAB PO SCH (09:01)
[2017-02-28] MEDS: ASPIRIN 81 MG CHEW PO SCH (09:04)
[2017-02-28] MEDS: METOPROLOL TARTRATE 100 MG TAB PO SCH (09:05)
[2017-02-28] MEDS: ISOSORBIDE MONONITRATE 60 MG TABCR PO SCH (09:05)
[2017-02-28] MEDS: POT PHOSPHATE MONOBASIC W/ SOD TAB PO SCH ×2 (09:06→13:09)
[2017-02-28] MEDS: DIPHENOXYLATE/ATROPINE 2.5/0.025MG TAB PO SCH ×2 (09:06→13:09)
[2017-02-28] MEDS: RANITIDINE HCL 150 MG TAB PO SCH (09:06)
[2017-02-28] MEDS: MAGNESIUM CHLORIDE 64MG DELAYED REL TAB PO SCH (09:07)
[2017-02-28] MEDS: CHOLESTYRAMINE LIGHT 4 GM PKT PO SCH ×2 (09:08→13:09)
[2017-02-28] MEDS: LISINOPRIL 5 MG TAB PO SCH (09:08)
[2017-02-28] MEDS: INSULIN ASPART 100 UNITS/ML 3 ML PEN SC SCH ×2 (09:11→13:17)
[2017-02-28] MEDS ORDERED: POTASSIUM CHLR 10 MEQ / WTR 10 MEQ in PREMIXED WATER 100 ML IV ONE (11:00)
[2017-02-28] MEDS ORDERED: MAGNESIUM SULFATE 1GM / D5W 1 GM in PREMIXED IN D5W 100 ML IV ONE (11:00)
[2017-02-28] MEDS ORDERED: POTASSIUM CHLORIDE 10 MEQ TABCR PO ONE (11:00)
--- NOTE | 2017-02-28 11:08 | Progress Note ---
Internal Med Progress Note Date of Service: Feb 28, 2017. Provider Documentation: SUBJECTIVE: The patient was seen and examined A little better today Still has Diarrhea but much reduced in frequency Sleft well last night for the first time OBJECTIVE: Vital Signs-as noted below Exam: General-Moderate distress at rest Eyes-normal ENT-normal Neck-supple Lungs-clear to ausucltate bilaterally Heart-Regular,no murmur appreciated Abdomen-Soft ,tender LLQ but no rebound tenderness Extremities-trace edema bilaterally Neuro-AAOx3 Lab data as noted below. ASSESSMENT & PLAN: POSSIBLE Lymphocytic COLITIS/Microscopic colitis FLARE UP -c diff negative,stool cx negative so far -continue with iv fluids and steroids -Appreciate GI input and recommendation -s/p coloscopy02/20/17 and seems unremarkable -was on Sandostatin ,Sandostatin stopped -Protonix stopped and placed on sucralfate and Zantac -not yet ready to be discharged -Has had more diarrhea and was evaluated by GI again today -repeat stool tests -Can have Lomotil and Imodium to control Diarrhea episodes -Diarrhea is better controlled today -likely to go home this afternoon Electrolyte abnormalities secondary to diarrhea will replace again If electrolytes are better will discharge home this afternoon ADRENAL INSUFFICIENCY Most likely from chronic intermittent prednisone courses On home Hydrocortisone 20mg in am, 10mg in PM Will need OP Endocrine follow up WORSENING DEPRESSION -recent in the family, medical condition -Psychiatry consulted and appreciate inputs -plan to taper off Zoloft and start on Prozac. -GI recommends to stop SSRI as they can cause microscopic colitis but patient says he is currently undergoing lot of stress secondary to in family and he wants to be on it. -stable now HISTORY OF CAD -stable on Aspirin, Metoprolol, Lisinopril, ISMN -holding Statin -No acute symptoms DM 2 -on Lantus and Apidra at home ISS for now while on clear liquids Pharm consulted-appreciate input HTN On , Metoprolol, Lisinopril, and nitrates PRN Clonidine COPD stable on Spiriva, Breo PRN nebs Full Code DVT PROPHYLAXIS scds for now DISPOSITION expect to d/c home and followup with pcp and GI possible d/c soon ambulate in hallways Discharge this afternoon Vital Signs: Date Time Temp Pulse Resp B/P Pulse Ox O2 Delivery O2 Flow Rate FiO2 02/28/17 09:00 Room Air 02/28/17 07:05 37.0 65 18 159/75 96 Room Air 02/27/17 23:58 Room Air 02/27/17 22:42 37.0 65 18 137/71 96 Room Air 02/27/17 16:10 Room Air 02/27/17 14:59 36.4 58 16 126/77 96 Room Air Lab Results: Results Past 24 Hours Test 02/27/17 12:21 02/27/17 15:30 02/27/17 17:15 02/27/17 20:30 Range/Units Bedside Glucose 136 127 144 70-99 mg/dl Sodium Level 144 136-145 mmol/L Potassium Level 3.5 3.5-5.1 mmol/L Chloride Level 108 98-107 mmol/L Carbon Dioxide Level 28 21-32 mmol/L Anion Gap 8.0 3-11 mmol/L Blood Urea Nitrogen 6 7-18 mg/dl Creatinine 0.92 0.60-1.40 mg/dl Est Creatinine Clear Calc Drug Dose 84.3 ml/min Estimated GFR () 103.7 Estimated GFR (Non- 89.5 BUN/Creatinine Ratio 6.1 10-20 Random Glucose 152 70-99 mg/dl Calcium Level 8.1 8.5-10.1 mg/dl Magnesium Level 2.6 1.8-2.4 mg/dl Test 02/28/17 07:38 02/28/17 08:04 Range/Units Sodium Level 144 136-145 mmol/L Potassium Level 2.9 3.5-5.1 mmol/L Chloride Level 110 98-107 mmol/L Carbon Dioxide Level 27 21-32 mmol/L Anion Gap 7.0 3-11 mmol/L Blood Urea Nitrogen 6 7-18 mg/dl Creatinine 0.93 0.60-1.40 mg/dl Est Creatinine Clear Calc Drug Dose 83.4 ml/min Estimated GFR () 102.3 Estimated GFR (Non- 88.3 BUN/Creatinine Ratio 6.0 10-20 Random Glucose 154 70-99 mg/dl Calcium Level 8.2 8.5-10.1 mg/dl Magnesium Level 1.7 1.8-2.4 mg/dl Bedside Glucose 151 70-99 mg/dl
[2017-02-28 14:47] LABS: BUN/CREATININE RATIO 6.1 (10-20); CALCIUM 8.1 mg/dl (8.5-10.1); CREATININE 1.1 mg/dl (0.60-1.40); MAGNESIUM 2.1 mg/dl (1.8-2.4); POTASSIUM 3.2 mmol/L (3.5-5.1)
[2017-02-28 15:27] VITALS: BP 135/74; PULSE 60; TEMP 36.4; O2SAT 96
[2017-02-28] MEDS ORDERED: POTASSIUM CHLORIDE 20 MEQ TABCR PO STA (15:33)
[2017-02-28] MEDS ORDERED: ATR25 PO (15:57)
[2017-02-28] MEDS ORDERED: POTA20TA13 PO (15:57)
[2017-02-28] MEDS ORDERED: RMR15 PO (15:57)
[2017-02-28] MEDS ORDERED: SLWMEC PO (15:57)
[2017-02-28] MEDS ORDERED: FLUO20CA34 PO (15:57)
[2017-02-28] MEDS ORDERED: CRFUDL PO (15:57)
--- NOTE | 2017-02-28 16:01 | Discharge Instructions ---
Discharge Instructions Date of Service Feb 28, 2017. Admission Reason for Admission: Colitis Discharge Discharge Diagnosis / Problem: Lymphocytic Coloitis,Electrolytes imbalance Discharge Goals Goal(s): Prevent Disease Progression Activity Recommendations Activity Limitations: resume your previous activity . 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 Who to Call and When: Medical Emergencies: If at any time you feel your situation is an emergency, please call 911 immediately. . Non-Emergent Contact Non-Emergency issues call your: Primary Care Provider . Past History Medical & Surgical History: (1) ARF (acute renal failure) (2) Abdominal pain (3) Major depressive disorder, recurrent episode with anxious distress (4) Diarrhea (5) Abdominal pain (6) Hypercholesteremia (7) Hypertension (8) Adrenal insufficiency . "Provider Documentation" section prepared by Nadine Bateman. VTE Core Measure Inpt VTE Proph given/why not?: SCD's
[2017-02-28 16:19] VITALS: BP 135/74; PULSE 60; TEMP 36.4; O2SAT 96
--- NOTE | 2017-02-28 17:50 | Discharge Summary ---
Discharge Summary Date of Service Feb 28, 2017. Discharge Summary Admission Date: Feb 19, 2017 at 14:55 Discharge Date: Feb 28, 2017 Discharge Disposition: Home Principal Diagnosis: Lymphocytic Colitis,Electrolytes imbalance,Anxiety/depression Secondary Diagnoses/Problems: Please see H&P and Hospital Progress note Procedures: Colonoscopy Consultations: GI and Psychiatry Medication Reconciliation New Medications: Fluoxetine Hcl (Prozac) 20 Mg Cap 1 CAP PO QAM for 30 Days, #30 CAP 1 Refill Potassium Chloride Microencaps (Potassium Chloride Er) 20 Meq Tab 1 TAB PO DAILY for 30 Days, #30 TAB 5 Refills Hydroxyzine HCl (Hydroxyzine HCl) 25 Mg Tab 50 MG PO HSZ PRN for Anxiety/Insomnia for 30 Days, #30 TAB Magnesium Chloride (Mag64) 64 Mg Tabcr 64 MG PO BID for 30 Days, #60 Mirtazapine (Mirtazapine) 15 Mg Tab 15 MG PO HS for 30 Days, #30 TAB Sucralfate (Sucralfate) 1 Gm/10 Ml Susp 1 GM PO QID for 30 Days, #120 Continued Medications: Albuterol Hfa (Ventolin Hfa) 200 Puffs/85127 Mcg Aers 3-4 PUFFS INH QID, #1 INHALER Albuterol Soln (Proventil 0.083% 2.5MG/3ML) Nebu 2.5 MG INH QID PRN for Shortness of Breath, EA Alprazolam (Xanax) 0.5 Mg Tab 0.5 MG PO HS PRN for Sleep, TAB Aspirin (Aspirin Chewable) 81 Mg Chew 81 MG PO QAM Atorvastatin (Lipitor) 80 Mg Tab 1 TAB PO DAILY for 30 Days, #30 TAB 5 Refills Cholestyramine (Questran) 4 Gm Pow 4 GM PO QID Dexamethasone Sod Phos (Dexamethasone Sodium Phos) 4 Mg/Ml Inj 1 DOSE IM DIRECTED Diphenoxylate/Atropine (Lomotil) Tab 1 TAB PO TID, TAB Stop or take as needed if less than 2 bowel movements a day Fluticasone Furoate-Vilanterol (Breo Ellipta) 1 Inh Inh 1 INHA PO DAILY Hydrocortisone (Cortef) 10 Mg Tab 2 TAB PO DAILY, TAB Hydrocortisone (Cortef) 10 Mg Tab 1 TAB PO PM Insulin Glargine (Lantus) Vial 10-20 UNITS SC HS, VIAL Ipratropium [place] (Atrovent Hfa) 200 Puffs/3400 Mcg Aers 2 PUFFS INH QID PRN for Shortness of Breath, GM 5 Refills Ipratropium-Albuterol (Duoneb) 3 Ml Nebu 1 TREATMENT INH QID, INHA Isosorbide Mononitrate Ext Rel (Imdur Ext Rel) 60 Mg Ertab 60 MG PO QAM, TAB Lisinopril (Zestril) 5 Mg Tab 5 MG PO QAM, TAB Metoprolol Tartrate (Lopressor) (Lopressor) 100 Mg Tab 100 MG PO BID, TAB Ranitidine Hcl (Zantac) 150 Mg Tab 150 MG PO BID, TAB Tiotropium [place] (Spiriva Handihaler) 18 Mcg/ Aerp 1 CAP INH QAM, INHALER [Humalog] () 5 UNITS SQ BID Discontinued Medications: Bupropion (Wellbutrin Sr) 150 Mg Ertab 150 MG PO DAILY, TAB Pantoprazole (Protonix) 40 Mg Tab 40 MG PO BID, #30 TAB Sertraline (Zoloft) 25 Mg Tab 100 MG PO QAM, TAB Admission Information HPI (per Admitting provider): 61 year old male with history of Ulcerative Colitis, Chronic Intermittent Prednisone Use, Adrenal Insufficiency, CAD, DM 2 on Insulin, HTN, COPD, presenting with persistent abdominal pain and diarrhea x 2 weeks at least Follows with Dr. Keith for Primary Care and Dr. Lin for PCP. Patient reports at least 2 weeks history of lower abdominal cramping and non bloody diarrhea. No nausea/vomiting, fever/chills. Symptoms reminiscent of Ulcerative Colitis flare up. He was advised to change Colestipol to powder form recently but with no improvement of symptoms. Appetite has been fair. Patient reports generalized malaise since symptoms started. He was advised by Dr. Keith to be directly admitted to the hospital. On exam, patient alert and conversant, but very emotional because of recent in the family and undergoing medical conditions. Patient reassured, and patient was grateful. Reports intermittent lower abdominal pain and continuous diarrhea. No chest pain, dyspnea, cough. No other symptoms. Past Medical/Surgical History Medical Problems: (1) Adrenal insufficiency Status: Chronic (2) ARF (acute renal failure) Status: Resolved (3) Diabetes Status: Chronic (4) Hypercholesteremia Status: Chronic (5) Hypertension Status: Chronic Surgical Problems: (1) H/O percutaneous transluminal coronary angioplasty Status: Resolved (2) Stented coronary artery Status: Resolved Family History Cancer Diabetes mellitus Heart disease Hypertension Social History Smoking Status: Current Every Day Smoker Alcohol Use: few beers/week Drug Use: none Marital Status: Housing status: lives alone Immunizations History of Influenza Vaccine: Yes Influenza Vaccine Date: Aug 20, 2013 History of Tetanus Vaccine?: Yes Tetanus Immunization Date: Aug 20, 2013 History of Pneumococcal: Yes History of Hepatitis B Vaccine: No Allergies Coded Allergies: Azathioprine (Verified Adverse Reaction, Unknown, RENAL COMPLICATIONS, 12/31) Home Medications Scheduled Albuterol Hfa (Ventolin Hfa), 3-4 PUFFS INH QID Aspirin (Aspirin Chewable), 81 MG PO QAM Atorvastatin (Lipitor), 1 TAB PO DAILY Bupropion (Wellbutrin Sr), 150 MG PO DAILY Cholestyramine (Questran), 4 GM PO QID Dexamethasone Sod Phos (Dexamethasone Sodium Phos), 1 DOSE IM DIRECTED Fluticasone Furoate-Vilanterol (Breo Ellipta), 1 INHA PO DAILY Hydrocortisone (Cortef), 2 TAB PO DAILY Hydrocortisone (Cortef), 1 TAB PO PM Insulin Glargine (Lantus), 10-20 UNITS SC HS Ipratropium-Albuterol (Duoneb), 1 TREATMENT INH QID Isosorbide Mononitrate Ext Rel (Imdur Ext Rel), 60 MG PO QAM Lisinopril (Zestril), 5 MG PO QAM Metoprolol Tartrate (Lopressor) (Lopressor), 100 MG PO BID Pantoprazole (Protonix), 40 MG PO BID Ranitidine Hcl (Zantac), 150 MG PO BID Sertraline (Zoloft), 100 MG PO QAM Tiotropium [place] (Spiriva Handihaler), 1 CAP INH QAM [Humalog], 5 UNITS SQ BID Scheduled PRN Albuterol Soln (Proventil 0.083% 2.5MG/3ML), 2.5 MG INH QID PRN for Shortness of Breath Alprazolam (Xanax), 0.5 MG PO HS PRN for Sleep Diphenoxylate/Atropine (Lomotil), 1 TAB PO TID PRN for Diarrhea Ipratropium [place] (Atrovent Hfa), 2 PUFFS INH QID PRN for Shortness of Breath Review of Systems Constitutional- no fever; (+) weight loss Eyes- no acute visual changes ENT- no sinus drainage; no pharyngitis Pulmonary- no cough, no wheezing, no shortness of breath Cardiac- no chest pain, no palpitations, no orthopnea, no dependent edema GI- (+) as noted above - no dysuria, no hematuria Musculoskeletal- no arthralgias, no myalgias Derm- no rashes, no new skin lesions, no changing skin lesions Hematologic- no unusual bruising, no unusual bleeding Lymphatics- no adenopathy Endocrine- no polyuria or polydipsia; no heat or cold intolerance Neuro- no headaches, no focal neurologic symptoms Psych- no anxiety, no depression Physical Ex - H&P Physical Exam Vital Signs Date Time Temp Pulse Resp B/P Pulse Ox O2 Delivery O2 Flow Rate FiO2 02/19/17 16:00 64 148/92 02/19/17 15:04 36.4 66 18 158/101 99 Room Air General Appearance: WD/WN, no apparent distress Head: normocephalic, atraumatic Eyes: normal inspection, PERRL, sclerae normal ENT: normal ENT inspection, hearing grossly normal, TMs normal, pharynx normal Neck: supple, no adenopathy, thyroid normal, no JVD, trachea midline Respiratory/Chest: chest non-tender, lungs clear, normal breath sounds, no respiratory distress, no accessory muscle use Cardiovascular: regular rate, rhythm, no edema, no JVD, no murmur, normal peripheral pulses Abdomen/GI: normal bowel sounds, non tender, soft Back: normal inspection, no CVA tenderness Extremities/Musculoskelatal: normal inspection, no calf tenderness, no pedal edema, normal range of motion Neurologic/Psych: specifications checker II-XII nml as tested, no motor/sensory deficits, alert, normal mood/affect, normal reflexes, oriented x 3, + pertinent finding (no suicidal ideations) Skin: normal color, warm/dry, no rash Diagnostics - H&P Diagnostics Laboratory Results Results Past 24 Hours Test 02/19/17 15:28 Range/Units Microbiology Results 02/19/17 Shiga Toxin Test, Ordered Pending 02/19/17 Stool Culture, Ordered Pending 02/19/17 C.difficile Toxin B Gene (PCR), Barbi Batch Pending Impression - H&P Impression Assessment and Plan 61 year old male with history of Ulcerative Colitis, Chronic Intermittent Prednisone Use, Adrenal Insufficiency, CAD, DM 2 on Insulin, HTN, COPD, presenting with persistent abdominal pain and diarrhea x 2 weeks at least POSSIBLE ULCERATIVE COLITIS FLARE UP check stool cultures and C diff Stool test IV fluids, clear liquids may need to increase Hydrocortisone dose will consult GI ADRENAL INSUFFICIENCY likely from chronic intermittent prednisone courses BP stable continue usual Hydrocortisone 20mg in am, 10mg in PM may need to increase dose in light of Ulcerative colitis flare up will discuss with GI WORSENING DEPRESSION recent in the family, medical condition will consult Psych HISTORY OF CAD no cardiac symptoms continue Aspirin, Metoprolol, Lisinopril, ISMN hold Statin DM 2 usually on Lantus and Apidra ISS for now while on clear liquids Pharm consult HTN continue Aspirin, Metoprolol, Lisinopril, ISMN PRN Clonidine COPD not in exacerbation continue Spiriva, Breo PRN nebs Full Code SCDs for DVT prophylaxis as patient has UC flare Disposition anticipate to d/c home when medically stable VTE Prophylaxis VTE Risk Assessment Done? Y/N: Yes Risk Level: Moderate Physical Exam (per Admitting): General Appearance: WD/WN, no apparent distress Head: normocephalic, atraumatic Eyes: normal inspection, PERRL, sclerae normal ENT: normal ENT inspection, hearing grossly normal, TMs normal, pharynx normal Neck: supple, no adenopathy, thyroid normal, no JVD, trachea midline Respiratory/Chest: chest non-tender, lungs clear, normal breath sounds, no respiratory distress, no accessory muscle use Cardiovascular: regular rate, rhythm, no edema, no JVD, no murmur, normal peripheral pulses Abdomen/GI: normal bowel sounds, non tender, soft Back: normal inspection, no CVA tenderness Extremities/Musculoskelatal: normal inspection, no calf tenderness, no pedal edema, normal range of motion Neurologic/Psych: specifications checker II-XII nml as tested, no motor/sensory deficits, alert , normal mood/affect, normal reflexes, oriented x 3, + pertinent finding (no suicidal ideations) Skin: normal color, warm/dry, no rash Hospital Course POSSIBLE Lymphocytic COLITIS/Microscopic colitis FLARE UP -c diff negative,stool cx negative so far -continue with iv fluids and steroids -Appreciate GI input and recommendation -s/p coloscopy02/20/17 and seems unremarkable -was on Sandostatin ,Sandostatin stopped -Protonix stopped and placed on sucralfate and Zantac -not yet ready to be discharged -Has had more diarrhea and was evaluated by GI again today -repeat stool tests -Can have Lomotil and Imodium to control Diarrhea episodes -Diarrhea is better controlled today -likely to go home this afternoon Electrolyte abnormalities secondary to diarrhea will replace again If electrolytes are better will discharge home this afternoon ADRENAL INSUFFICIENCY Most likely from chronic intermittent prednisone courses On home Hydrocortisone 20mg in am, 10mg in PM Will need OP Endocrine follow up WORSENING DEPRESSION -recent in the family, medical condition -Psychiatry consulted and appreciate inputs -plan to taper off Zoloft and start on Prozac. -GI recommends to stop SSRI as they can cause microscopic colitis but patient says he is currently undergoing lot of stress secondary to in family and he wants to be on it. -stable now HISTORY OF CAD -stable on Aspirin, Metoprolol, Lisinopril, ISMN -holding Statin -No acute symptoms DM 2 -on Lantus and Apidra at home ISS for now while on clear liquids Pharm consulted-appreciate input HTN On , Metoprolol, Lisinopril, and nitrates PRN Clonidine COPD stable on Spiriva, Breo PRN nebs Full Code DVT PROPHYLAXIS scds for now DISPOSITION expect to d/c home and followup with pcp and GI possible d/c soon ambulate in hallways Discharge this afternoon Total time spent on discharge = 35 minutes This includes examination of the patient, discharge planning, medication reconciliation, and communication with other providers. Discharge Instructions Date of Service Feb 28, 2017. Admission Reason for Admission: Colitis Discharge Discharge Diagnosis / Problem: Lymphocytic Coloitis,Electrolytes imbalance Discharge Goals Goal(s): Prevent Disease Progression Activity Recommendations Activity Limitations: resume your previous activity . 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 Who to Call and When: Medical Emergencies: If at any time you feel your situation is an emergency, please call 911 immediately. . Non-Emergent Contact Non-Emergency issues call your: Primary Care Provider . Past History Medical & Surgical History: (1) ARF (acute renal failure) (2) Abdominal pain (3) Major depressive disorder, recurrent episode with anxious distress (4) Diarrhea (5) Abdominal pain (6) Hypercholesteremia (7) Hypertension (8) Adrenal insufficiency . "Provider Documentation" section prepared by Nadine Bateman. VTE Core Measure Inpt VTE Proph given/why not?: SCD's <Electronically signed by Nadine Bateman M.D.> Additional Copies To Tony Lin D.O.
[2017-04-22] MEDS ORDERED: VNTHFA/IN INH (13:29)
[2017-04-22] MEDS ORDERED: ALBINS/ INH (13:29)
[2017-04-22] MEDS ORDERED: IPRASOL4 INH (13:29)
[2017-04-22] MEDS ORDERED: LEVO-459 PO (13:30)
[2017-04-22] MEDS ORDERED: OXYC-57 PO (13:36)
[2017-05-08] MEDS ORDERED: VANC5CAP PO (09:58)
[2017-05-08] MEDS ORDERED: LPR50X PO (09:58)
[2017-05-08] MEDS ORDERED: SULF-183 PO (09:58)
[2017-05-08] MEDS ORDERED: OXYC-57 PO (10:32)
[2017-05-21] MEDS ORDERED: RANI150T3 PO (09:58)
[2017-05-21] MEDS ORDERED: HYD10 PO ×2 (09:58→15:41)
[2017-05-21] MEDS ORDERED: LISI-729 PO (10:03)
[2017-05-21] MEDS ORDERED: ISOS60TA25 PO (10:03)
[2017-05-21] MEDS ORDERED: ASPCH81X PO (10:03)
[2017-05-21] MEDS ORDERED: ALPR-411 PO (10:03)
[2017-05-21] MEDS ORDERED: INSU100I SC (10:45)
[2017-05-21] MEDS ORDERED: MIRT30TA2 PO (11:29)
[2017-05-21] MEDS ORDERED: INSDGI SC (11:29)
[2017-05-21] MEDS ORDERED: SPRIN/30 INH (11:29)
[2017-05-21] MEDS ORDERED: DEXA4INJ32 IM (15:41)
[2017-05-21] MEDS ORDERED: ATOR-26 PO (15:41)
[2017-05-21] MEDS ORDERED: FLUT1INH PO (15:41)
[2017-05-31] MEDS ORDERED: AMT25 PO (10:53)
[2017-05-31] MEDS ORDERED: CHOL4POW11 PO (10:53)
[2017-05-31] MEDS ORDERED: PPTBS PO (10:53)
[2017-05-31] MEDS ORDERED: MGNO400 PO (10:53)
[2017-05-31] MEDS ORDERED: DIPH-416 PO (10:53)
[2017-05-31] MEDS ORDERED: ENT3 PO (10:53)
[2017-05-31] MEDS ORDERED: CTP1 PO (10:53)
[2017-05-31] MEDS ORDERED: OXYC7.5T62 PO (10:53)
[2017-05-31] MEDS ORDERED: POTA1POW PO (11:17)
[2017-09-16] MEDS ORDERED: SLWMEC PO (08:54)
[2017-09-16] MEDS ORDERED: LMTHP PO (08:54)
[2017-09-16] MEDS ORDERED: CHOL4POW11 PO (08:54)
== END 2017-02-28 17:29 | disposition home or self-care (01) | DRG 386 ==
LOC: C.MSN 14:55
PROVIDERS: ADMIT Internal Medicine; ATTEND Internal Medicine
PROC: 0DBE8ZX Excision of Large Intestine, Via Natural or Artificial Opening Endoscopic, Diagnostic (ICD-10-PCS; principal; 2017-02-20 12:28)
DX: K51.90 Ulcerative colitis, unspecified, without complications (principal); E27.40 Unspecified adrenocortical insufficiency; F33.9 Major depressive disorder, recurrent, unspecified; K52.832 Lymphocytic colitis; F41.9 Anxiety disorder, unspecified; J44.9 Chronic obstructive pulmonary disease, unspecified; E78.00 Pure hypercholesterolemia, unspecified; F17.210 Nicotine dependence, cigarettes, uncomplicated; R10.9 Unspecified abdominal pain; K57.30 Diverticulosis of large intestine without perforation or abscess without bleeding; T38.0X5A Adverse effect of glucocorticoids and synthetic analogues, initial encounter; I25.10 Atherosclerotic heart disease of native coronary artery without angina pectoris; I10 Essential (primary) hypertension; E11.9 Type 2 diabetes mellitus without complications; E83.42 Hypomagnesemia; Z72.89 Other problems related to lifestyle; Z95.5 Presence of coronary angioplasty implant and graft; Z63.4 Disappearance and death of family member; Z23 Encounter for immunization; Z79.52 Long term (current) use of systemic steroids; Z79.4 Long term (current) use of insulin; Z79.82 Long term (current) use of aspirin; Z79.899 Other long term (current) drug therapy

== ENCOUNTER 2017-04-20 10:59 | Inpatient (IN) | payer OTHER ==
[~2017-04-20] VITALS: Ht 175.3 cm; Wt 75.3 kg
[~2017-04-20 10:59] MED LIST changes: +ATR25 PO; +CHOL4POW11 PO; -COLE1TAB5 PO; +CRFUDL PO; +FLUO20CA34 PO; +Humalog SQ; -INSUINJ5 SC; -MESA1CAP2 PO; -MOME220A INH; -PANT40TA PO; +POTA20TA13 PO; +RMR15 PO; -SERT25TA PO; +SLWMEC PO; -VENL75CA PO; +VNTHFA/IN INH
[2017-04-20] MEDS ORDERED: SODIUM CHLORIDE 0.9% 1000ML 1,000 ML IV STA (11:16)
--- NOTE | 2017-04-20 11:16 | EMERGENCY ROOM VISIT NOTE ---
History Report prepared by Tisha: Carlos Bunch Under the Supervision of: Dr. Steven Herman M.D. First contact with patient: 11:08 Chief Complaint: URINARY SYMPTOMS Stated Complaint: UTI History of Present Illness The patient is a 62 year old male who presents to the Emergency Room with complaints of worsening urinary tract infection symptoms that initially began on of last week, four days prior to this visit. The patient visited with his primary care physician on and was prescribed Ciprofloxacin for a Urinary Tract Infection. He experienced relief for one day, but notes that his symptoms have now returned and are worsening. He is complaining of severe burning with urination, LLQ/RLQ abdominal pain, and increasing weakness. He also notes fevers as high as 104.8 degrees. Source of History: patient Onset: 4 days [employer] Position: other (Genitourinary) Symptom Intensity: severe Quality: other (Burning with urinatin) Timing: worsening Associated Symptoms: + abdominal pain, + fevers, + urinary symptoms, + weakness Review of Systems See HPI for pertinent positives & negatives. A total of 10 systems reviewed and were otherwise negative. Past Medical & Surgical Medical Problems: (1) Adrenal insufficiency (2) ARF (acute renal failure) (3) Diabetes (4) Hypercholesteremia (5) Hypertension (6) Major depressive disorder, recurrent episode with anxious distress Surgical Problems: (1) H/O percutaneous transluminal coronary angioplasty (2) Stented coronary artery Family History Cancer Diabetes mellitus Heart disease Hypertension Social History Smoking Status: Current Every Day Smoker Alcohol Use: none Drug Use: none Marital Status: Housing Status: lives with family Current/Historical Medications Scheduled Albuterol Hfa (Ventolin Hfa), 3-4 PUFFS INH QID Albuterol Sulf (Proventil 0.083% 2.5MG/3ML), 2.5 MG INH QID Aspirin (Aspirin Chewable), 81 MG PO QAM Atorvastatin (Lipitor), 1 TAB PO DAILY Cholestyramine (Questran), 4 GM PO QID Ciprofloxacin Hcl (Cipro), 500 MG PO BID Dexamethasone Sod Phos (Dexamethasone Sodium Phos), 1 DOSE IM DIRECTED Fluconazole (Diflucan), 100 MG PO DAILY Fluoxetine Hcl (Prozac), 1 CAP PO QAM Fluticasone Furoate-Vilanterol (Breo Ellipta), 1 INHA PO DAILY Hydrocortisone (Cortef), 2 TAB PO DAILY Hydrocortisone (Cortef), 1 TAB PO PM Insulin Glargine (Lantus), 10-20 UNITS SC DAILY Insulin Glulisine (Apidra), 5 UNITS SC BIDM Ipratropium-Albuterol (Duoneb), 1 TREATMENT INH QID Isosorbide Mononitrate Ext Rel (Imdur Ext Rel), 60 MG PO QAM Lisinopril (Zestril), 5 MG PO QAM Magnesium Chloride (Mag64), 8 TABS PO BID Metoprolol Tartrate (Lopressor) (Lopressor), 100 MG PO BID Mirtazapine Soltab (Remeron Soltab), 30 MG PO DAILY Nystatin (Nystatin Suspension), 5 ML PO QID Potassium Chloride Microencaps (Potassium Chloride Er), 1 TAB PO DAILY Ranitidine Hcl (Zantac), 150 MG PO BID Tiotropium [place] (Spiriva Handihaler), 1 CAP INH DAILY Scheduled PRN Alprazolam (Xanax), 0.5 MG PO HS PRN for Sleep Hydroxyzine HCl (Hydroxyzine HCl), 50 MG PO HSZ PRN for Anxiety/Insomnia Allergies Coded Allergies: Azathioprine (Verified Adverse Reaction, Unknown, RENAL COMPLICATIONS, ) Physical Exam Vital Signs Date Time Temp Pulse Resp B/P Pulse Ox O2 Delivery O2 Flow Rate FiO2 04/20/17 12:58 86 18 114/68 95 Room Air 04/20/17 11:22 36.9 04/20/17 11:03 36.7 112 18 122/82 97 Room Air Physical Exam GENERAL: Patient is ill appearing and in moderate distress. HEENT: No acute trauma, normocephalic atraumatic, mucous membranes dry, no nasal congestion, no scleral icterus. NECK: No stridor, no adenopathy, no meningismus, trachea is midline. LUNGS: No dyspnea. Clear to auscultation and equal bilaterally. No wheeze, no rhonchi. HEART: Tachycardiac rate and rhythm. No murmurs, rubs, gallops appreciated. ABDOMEN: Soft, nontender, bowel sounds positive, no masses appreciated, no peritonitis. BACK: There is right flank tenderness to palpation. No midline tenderness, no CVA tenderness EXTREMITIES: Normal motion all extremities, no cyanosis, no edema. NEUROLOGIC: Alert and oriented, no acute motor or sensory deficits, no focal weakness, cranial nerves grossly intact. SKIN: No rash, no jaundice, no diaphoresis. Medical Decision & Procedures ER Provider Diagnostic Interpretation: Radiology results and stated below per my review and radiologist interpretation: ABDOMEN AND PELVIS CT WITH IV CONTRAST CT DOSE: 383.84 mGy.cm HISTORY: left flank pain, fevers, UTI TECHNIQUE: Multiaxial CT images of the abdomen and pelvis were performed following the use of intravenous contrast. COMPARISON STUDY: Abdomen and pelvis CT 07/18/2014. FINDINGS: The lung bases are essentially clear. 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 Old, healed left-sided rib fractures. The liver, gallbladder, spleen, pancreas, and adrenal glands are unremarkable. Heterogeneous perfusion within the left kidney. There is also a small focus of heterogeneous perfusion within the interpolar region of the right kidney. Hypodense lesions within the right kidney likely represent cysts. No hydronephrosis. Mild bilateral perinephric edema. No retroperitoneal lymphadenopathy. Mild bladder wall thickening. Colonic diverticulosis. No bowel wall thickening or obstruction. Normal appendix. Mildly ectatic abdominal aorta. IMPRESSION: 1. Heterogeneous perfusion within the bilateral kidneys, left greater than right. This likely represents bilateral pyelonephritis. 2. Mild bladder wall thickening consistent with a cystitis. 3. No bowel wall thickening or obstruction. 4. Normal appendix. Electronically signed by: Corey Morejon M.D. 04/20/2017 12:46 PM Dictated Date/Time: 04/20/2017 12:40 PM CHEST ONE VIEW PORTABLE HISTORY: fever COMPARISON: Chest 09/19/2014. FINDINGS: The lungs are clear. Cardiac silhouette is normal in size. No pleural effusions. No pneumothorax. IMPRESSION: No acute process. Electronically signed by: Corey Morejon M.D. 04/20/2017 11:53 AM Dictated Date/Time: 04/20/2017 11:52 AM Laboratory Results 04/20/17 11:33 Red Blood Count 4.54, Mean Corpuscular Volume 93.4, Mean Corpuscular Hemoglobin 31.3, Mean Corpuscular Hemoglobin Concent 33.5, Mean Platelet Volume 10.2, Neutrophils (%) (Auto) 67.9, Lymphocytes (%) (Auto) 15.4, Monocytes (%) (Auto) 14.4, Eosinophils (%) (Auto) 1.5, Basophils (%) (Auto) 0.2, Neutrophils # (Auto ) 7.47, Lymphocytes # (Auto) 1.70, Monocytes # (Auto) 1.59, Eosinophils # (Auto ) 0.16, Basophils # (Auto) 0.02 04/20/17 11:33 Test 04/20/17 11:11 04/20/17 11:33 04/20/17 11:40 Urine Color YELLOW Urine Appearance CLEAR (CLEAR) Urine pH 5.5 (4.5-7.5) Urine Specific [place] 1.017 (1.000-1.030) Urine Protein 1+ (NEG) Urine Glucose (UA) 2+ (NEG) Urine Ketones NEG (NEG) Urine Occult Blood 2+ (NEG) Urine Nitrite NEG (NEG) Urine Bilirubin NEG (NEG) Urine Urobilinogen NEG (NEG) Urine Leukocyte Esterase SMALL (NEG) Urine WBC (Auto) >30 /hpf (0-5) Urine RBC (Auto) 5-10 /hpf (0-4) Urine Hyaline Casts (Auto) 1-5 /lpf (0-5) Urine Epithelial Cells (Auto) 5-10 /lpf (0-5) Urine Bacteria (Auto) NEG (NEG) Urine Yeast (Auto) (NONE PRSENT) White Blood Count 11.01 K/uL (4.8-10.8) Red Blood Count 4.54 M/uL (4.7-6.1) Hemoglobin 14.2 g/dL (14.0-18.0) Hematocrit 42.4 % (42-52) Mean Corpuscular Volume 93.4 fL (80-100) Mean Corpuscular Hemoglobin 31.3 pg (25-34) Mean Corpuscular Hemoglobin Concent 33.5 g/dl (32-36) Platelet Count 184 K/uL (130-400) Mean Platelet Volume 10.2 fL (7.4-10.4) Neutrophils (%) (Auto) 67.9 % Lymphocytes (%) (Auto) 15.4 % Monocytes (%) (Auto) 14.4 % Eosinophils (%) (Auto) 1.5 % Basophils (%) (Auto) 0.2 % Neutrophils # (Auto) 7.47 K/uL (1.4-6.5) Lymphocytes # (Auto) 1.70 K/uL (1.2-3.4) Monocytes # (Auto) 1.59 K/uL (0.11-0.59) Eosinophils # (Auto) 0.16 K/uL (0-0.5) Basophils # (Auto) 0.02 K/uL (0-0.2) RDW Standard Deviation 51.6 fL (36.4-46.3) RDW Coefficient of Variation 15.1 % (11.5-14.5) Immature Granulocyte % (Auto) 0.6 % Immature Granulocyte # (Auto) 0.07 K/uL (0.00-0.02) Anion Gap 7.0 mmol/L (3-11) Est Creatinine Clear Calc Drug Dose 51.1 ml/min Estimated GFR () 57.0 Estimated GFR (Non- 49.2 BUN/Creatinine Ratio 10.4 (10-20) Calcium Level 9.1 mg/dl (8.5-10.1) Magnesium Level 1.6 mg/dl (1.8-2.4) Total Bilirubin 1.0 mg/dl (0.2-1) Direct Bilirubin 0.4 mg/dl (0-0.2) Aspartate Amino Transf (AST/SGOT) 15 U/L (15-37) Alanine Aminotransferase (ALT/SGPT) 18 U/L (12-78) Alkaline Phosphatase 120 U/L (45-117) Troponin I < 0.015 ng/ml (0-0.045) C-Reactive Protein 16.90 mg/dl (0-0.29) Total Protein 7.1 gm/dl (6.4-8.2) Albumin 2.8 gm/dl (3.4-5.0) Procalcitonin 0.49 ng/ml (0-0.5) Bedside Lactic Acid Venous 1.79 mmol/L (0.90-1.70) Laboratory results as reviewed by me. Medications Administered Medications (Trade) Dose Ordered Sig/Tisha Route Start Time Stop Time Status Last Admin Dose Admin Sodium Chloride (Nss 1000ml) 1,000 ml @ 999 mls/hr Q1H1M STAT IV 04/20/17 11:16 04/20/17 12:16 DC 04/20/17 11:37 999 MLS/HR Hydromorphone HCl (Dilaudid Inj) 1 mg NOW STAT IV 04/20/17 11:34 04/20/17 11:35 DC 04/20/17 11:42 1 MG Ceftriaxone Sodium (Rocephin Inj) 1 gm NOW STAT IV 04/20/17 12:54 04/20/17 12:56 DC 04/20/17 13:06 1 GM ECG Indication: other (Sepsis ) Rate (beats per minute): 90 Rhythm: normal sinus Findings: no acute ischemic change, no ectopy ED Course 1110: The patient was evaluated in room C9. A complete history and physical exam was performed. 1116: Ordered Sodium Chloride 1000 mL @ 999 mL/rh IV. 1134: Dilaudid Inj 1 mg IV. 1204: I checked on the patient at this time. He states that he is feeling better. 1254: Ordered Rocephin 1 gm IV. 1300: I discussed the case with Dr. Leon WHARTON at this time. He will evaluate the patient for further treatment. 1330: I checked on the patient at this time, he was requesting more pain medication. 1330: Ordered Dilaudid 1 mg IV. Medical Decision Blood pressure screening: Patient was found to have normal blood pressure on screening and does not require follow-up. Medication Reconciliation: I attest that I have personally reviewed the patient 's current medication list. Differential: Renal Colic, Pyelonephritis, Hydronephrosis, Appendicitis, Diverticulitis, Retroperitoneal Bleed/Infection, Aortic Pathology, MSK, Neurologic Pathology, amongst other pathologies entertained. 62 yr old immunocompromised (chronic steroid use) male arrives after 4 days Cipro tx for UTI with continued fevers, chills, uti symptoms and now flank pain. Specifically left though admits mild bilateral pain. No fever here though took Tylenol at home for 104F temp just [employer]. Tachycardic with elevated CRP, mild Lactic acid elevation. He is not septic shock and does not at this time require immediately 30ml/KG resus, but was given initial fluids with improvement in HR. WBC looks OK. With CT findings of bilateral pyelonephritis despite outpatient Cipro I feel patient will need inpatient treatment. Stable at time of hospitalist evaluation. Consults Time Called: 1255 Consulting Physician: Dr. Leon WHARTON Returned Call: 1300 I discussed the case with Dr. Quintero - PCP at this time. He will evaluate the patient for further treatment. Impression Primary Impression: Pyelonephritis Additional Impressions: Sepsis Failure of outpatient treatment Scribe Attestation The scribe's documentation has been prepared under my direction and personally reviewed by me in its entirety. I confirm that the note above accurately reflects all work, treatment, procedures, and medical decision making performed by me. Departure Information Dispostion Being Evaluated By Hospitalist Referrals Tony Lin D.O. (PCP) Patient Instructions My [facility] Problem Qualifiers
[2017-04-20] MEDS ORDERED: NYSS/ PO (11:29)
[2017-04-20] MEDS ORDERED: ALBINS/ INH (11:29)
[2017-04-20] MEDS ORDERED: INSUINJ5 SC (11:29)
[2017-04-20] MEDS ORDERED: MAGN64TA4 PO (11:29)
[2017-04-20] MEDS ORDERED: CIPR-255 PO (11:29)
[2017-04-20] MEDS ORDERED: FLUC100T4 PO (11:29)
[2017-04-20] MEDS ORDERED: HYDROmorphone INJ 1 MG/ML SYR IV STA ×2 (11:34→13:30)
[2017-04-20 11:47] LABS: BASO % 0.2 %; BASO ABS # 0.02 K/uL (0-0.2); COMPLETE YES; EOS % 1.5 %; HEMATOCRIT 42.4 % (42-52); IG% 0.6 %; LYMPH % 15.4 %; MEAN CELL VOLUME 93.4 fL (80-100); MEAN CORPUSCULAR HEMOGLOBIN 31.3 pg (25-34); MEAN CORPUSCULAR HGB CONC 33.5 g/dl (32-36); MEAN PLATELET VOLUME 10.2 fL (7.4-10.4); MONO % 14.4 %; NEUT % 67.9 %; PLATELET COUNT 184 K/uL (130-400); RED BLOOD COUNT 4.54 M/uL (4.7-6.1); WHITE BLOOD COUNT 11.01 K/uL (4.8-10.8)
[2017-04-20 11:48] LABS: URINE APPEARANCE CLEAR (CLEAR); URINE BILIRUBIN NEG (NEG); URINE COLOR YELLOW; URINE NITRITE NEG (NEG); URINE PH 5.5 (4.5-7.5); URINE SPECIFIC GRAVITY 1.017 (1.000-1.030); UROBILINOGEN NEG (NEG)
--- NOTE | 2017-04-20 11:54 | DIAGNOSTIC IMAGING REPORT ---
CHEST ONE VIEW PORTABLE HISTORY: fever COMPARISON: Chest 09/19/2014. FINDINGS: The lungs are clear. Cardiac silhouette is normal in size. No pleural effusions. No pneumothorax. IMPRESSION: No acute process. Electronically signed by: Corey Morejon M.D. 04/20/2017 11:53 AM Dictated Date/Time: 04/20/2017 11:52 AM
[2017-04-20 12:06] LABS: ALKALINE PHOSPHATASE 120 U/L (45-117); ALT/SGPT 18 U/L (12-78); AST/SGOT 15 U/L (15-37); BLOOD UREA NITROGEN 16 mg/dl (7-18); BUN/CREATININE RATIO 10.4 (10-20); CALCIUM 9.1 mg/dl (8.5-10.1); CARBON DIOXIDE 29 mmol/L (21-32); CHLORIDE 105 mmol/L (98-107); GLUCOSE 164 mg/dl (70-99); MAGNESIUM 1.6 mg/dl (1.8-2.4); SODIUM 141 mmol/L (136-145)
[2017-04-20 12:08] LABS: MANUAL MICROSCOPIC REQUIRED? NO; REVIEW REQ? YES
[2017-04-20 12:27] LABS: ZZUR CULT IF INDIC CLEAN CATCH YES
[2017-04-20] MEDS ORDERED: OPTIRAY 320 IV PRN (12:30)
--- NOTE | 2017-04-20 12:48 | DIAGNOSTIC IMAGING REPORT ---
ABDOMEN AND PELVIS CT WITH IV CONTRAST CT DOSE: 383.84 mGy.cm HISTORY: left flank pain, fevers, UTI TECHNIQUE: Multiaxial CT images of the abdomen and pelvis were performed following the use of intravenous contrast. COMPARISON STUDY: Abdomen and pelvis CT 07/18/2014. FINDINGS: The lung bases are essentially clear. 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 Old, healed left-sided rib fractures. The liver, gallbladder, spleen, pancreas, and adrenal glands are unremarkable. Heterogeneous perfusion within the left kidney. There is also a small focus of heterogeneous perfusion within the interpolar region of the right kidney. Hypodense lesions within the right kidney likely represent cysts. No hydronephrosis. Mild bilateral perinephric edema. No retroperitoneal lymphadenopathy. Mild bladder wall thickening. Colonic diverticulosis. No bowel wall thickening or obstruction. Normal appendix. Mildly ectatic abdominal aorta. IMPRESSION: 1. Heterogeneous perfusion within the bilateral kidneys, left greater than right. This likely represents bilateral pyelonephritis. 2. Mild bladder wall thickening consistent with a cystitis. 3. No bowel wall thickening or obstruction. 4. Normal appendix. Electronically signed by: Corey Morejon M.D. 04/20/2017 12:46 PM Dictated Date/Time: 04/20/2017 12:40 PM
[2017-04-20] MEDS ORDERED: CEFTRIAXONE SOD INJ 1 GM ADDVIAL IV STA (12:54)
[2017-04-20 13:38] VITALS: O2SAT 95; Ht 175.3 cm; Wt 75.3 kg
[2017-04-20] MEDS ORDERED: hydrOXYzine HCL 25 MG TAB PO PRN (14:00)
[2017-04-20] MEDS ORDERED: GLUCOSE 10 TABS/TUBE PO PRN (14:00)
[2017-04-20] MEDS ORDERED: ACETAMINOPHEN 325 MG TAB PO PRN (14:00)
[2017-04-20] MEDS ORDERED: ALPRAZOLAM 0.5 MG TAB PO PRN (14:00)
[2017-04-20] MEDS ORDERED: ONDANSETRON INJ 2 MG/ML 2 ML VIAL IV PRN (14:00)
[2017-04-20] MEDS ORDERED: GLUCAGON FOR INJ 1 MG VIAL SQ PRN (14:00)
[2017-04-20] MEDS ORDERED: MAGNESIUM HYDROXIDE SUSP 30 ML UDC PO PRN (14:00)
[2017-04-20] MEDS ORDERED: POLYETHYLENE (MIRALAX) 17 GM PACK PO PRN (14:00)
[2017-04-20] MEDS ORDERED: DEXTROSE 50% 50 ML SYR IV PRN (14:00)
[2017-04-20] MEDS ORDERED: GLUCOSE 40% GEL 15 GM TUBE PO PRN (14:00)
--- NOTE | 2017-04-20 14:43 | History and Physical ---
History & Physical Date & Time of Service: April 20, 2017 at 14:19 Chief Complaint: UTI Primary Care Physician: Tony Lin D.O. History of Present Illness Source: patient, family, clinic records, hospital records This is a 62 year old male with a PMH of ulcerative colitis, Hooper's disease, CAD s/p stents x2, insulin dependent DM2, COPD, HTN, HLD, depression/anxiety presents to the ER with a one week history of dysuria, frequency, flank pain, fevers/chills - states he went to his primary care physician due to these symptoms - was prescribed Cipro and urine culture performed - this grew out E. coli sensitive to Cipro - he states he felt better x2 days, but then on Thursday , the symptoms worsened - and now he has developed nausea/vomiting, worsening pain, fevers/chills. CT performed and shows bilateral pyelonephritis. Currently, he feels okay, pain still present at bilateral flanks - L > R; improved nausea. No diarrhea, no bleeding. Past Medical/Surgical History Medical Problems: (1) Adrenal insufficiency Status: Chronic (2) ARF (acute renal failure) Status: Resolved (3) Diabetes Status: Chronic (4) Hypercholesteremia Status: Chronic (5) Hypertension Status: Chronic Surgical Problems: (1) H/O percutaneous transluminal coronary angioplasty Status: Resolved (2) Stented coronary artery Status: Resolved Family History Cancer Diabetes mellitus Heart disease Hypertension Social History Smoking Status: Current Every Day Smoker Drug Use: none Marital Status: Housing status: lives alone Immunizations History of Influenza Vaccine: Yes Influenza Vaccine Date: Aug 20, 2013 History of Tetanus Vaccine?: Yes Tetanus Immunization Date: Aug 20, 2013 History of Pneumococcal: Yes History of Hepatitis B Vaccine: No Allergies Coded Allergies: Azathioprine (Verified Adverse Reaction, Unknown, RENAL COMPLICATIONS, ) Home Medications Scheduled Albuterol Hfa (Ventolin Hfa), 3-4 PUFFS INH QID Albuterol Sulf (Proventil 0.083% 2.5MG/3ML), 2.5 MG INH QID Aspirin (Aspirin Chewable), 81 MG PO QAM Atorvastatin (Lipitor), 1 TAB PO DAILY Cholestyramine (Questran), 4 GM PO QID Ciprofloxacin Hcl (Cipro), 500 MG PO BID Dexamethasone Sod Phos (Dexamethasone Sodium Phos), 1 DOSE IM DIRECTED Fluconazole (Diflucan), 100 MG PO DAILY Fluoxetine Hcl (Prozac), 1 CAP PO QAM Fluticasone Furoate-Vilanterol (Breo Ellipta), 1 INHA PO DAILY Hydrocortisone (Cortef), 2 TAB PO DAILY Hydrocortisone (Cortef), 1 TAB PO PM Insulin Glargine (Lantus), 10-20 UNITS SC DAILY Insulin Glulisine (Apidra), 5 UNITS SC BIDM Ipratropium-Albuterol (Duoneb), 1 TREATMENT INH QID Isosorbide Mononitrate Ext Rel (Imdur Ext Rel), 60 MG PO QAM Lisinopril (Zestril), 5 MG PO QAM Magnesium Chloride (Mag64), 8 TABS PO BID Metoprolol Tartrate (Lopressor) (Lopressor), 100 MG PO BID Mirtazapine Soltab (Remeron Soltab), 30 MG PO DAILY Nystatin (Nystatin Suspension), 5 ML PO QID Potassium Chloride Microencaps (Potassium Chloride Er), 1 TAB PO DAILY Ranitidine Hcl (Zantac), 150 MG PO BID Tiotropium [place] (Spiriva Handihaler), 1 CAP INH DAILY Scheduled PRN Alprazolam (Xanax), 0.5 MG PO HS PRN for Sleep Hydroxyzine HCl (Hydroxyzine HCl), 50 MG PO HSZ PRN for Anxiety/Insomnia Review of Systems Constitutional: + chills, + fatigue, + fever, + sweats, + weakness Eyes: No worsening of vision ENT: No trouble swallowing Respiratory: No cough, No dyspnea at rest, No dyspnea on exertion, No hemoptysis, No shortness of breath, No sputum, No wheezing Cardiovascular: No chest pain, No edema, No palpitations Abdomen: + nausea, + vomiting, No GI bleeding, No constipation, No diarrhea, No pain Genitourinary - Male: + dysuria, + urinary frequency, + urinary hesitancy, + urinary urgency, No hematuria Neurologic: + weakness, No balance problems, No numbness/tingling, No vertigo Psychiatric: No anxiety, No depression symptoms (controlled with medications) Hematologic / Lymphatic: No abnormal bleeding/bruising Integumentary: No rash Allergic / Immunologic: No environmental allergies, No seasonal allergies Physical Exam Vital Signs Date Time Temp Pulse Resp B/P Pulse Ox O2 Delivery O2 Flow Rate FiO2 04/20/17 12:58 86 18 114/68 95 Room Air 04/20/17 11:22 36.9 04/20/17 11:03 36.7 112 18 122/82 97 Room Air General Appearance: + mild distress (weakness, fatigue) Head: normocephalic, atraumatic Eyes: normal inspection Respiratory/Chest: chest non-tender, lungs clear, normal breath sounds, no respiratory distress, no accessory muscle use Cardiovascular: regular rate, rhythm, no edema, no gallop, no JVD, no murmur, normal peripheral pulses Abdomen/GI: normal bowel sounds, soft, + tenderness (suprapubic; bilateral flank tenderness) Back: + left CVA tenderness, + right CVA tenderness Extremities/Musculoskelatal: no calf tenderness, normal capillary refill, no pedal edema Neurologic/Psych: no motor/sensory deficits, alert, normal mood/affect Skin: normal color Lymphatic: no adenopathy Diagnostics Laboratory Results Results Past 24 Hours Test 04/20/17 11:11 04/20/17 11:33 04/20/17 11:40 Range/Units Urine Color YELLOW Urine Appearance CLEAR CLEAR Urine pH 5.5 4.5-7.5 Urine Specific [place] 1.017 1.000-1.030 Urine Protein 1+ NEG Urine Glucose (UA) 2+ NEG Urine Ketones NEG NEG Urine Occult Blood 2+ NEG Urine Nitrite NEG NEG Urine Bilirubin NEG NEG Urine Urobilinogen NEG NEG Urine Leukocyte Esterase SMALL NEG Urine WBC (Auto) >30 0-5 /hpf Urine RBC (Auto) 5-10 0-4 /hpf Urine Hyaline Casts (Auto) 1-5 0-5 /lpf Urine Epithelial Cells (Auto) 5-10 0-5 /lpf Urine Bacteria (Auto) NEG NEG Urine Yeast (Auto) NONE PRSENT White Blood Count 11.01 4.8-10.8 K/uL Red Blood Count 4.54 4.7-6.1 M/uL Hemoglobin 14.2 14.0-18.0 g/dL Hematocrit 42.4 42-52 % Mean Corpuscular Volume 93.4 80-100 fL Mean Corpuscular Hemoglobin 31.3 25-34 pg Mean Corpuscular Hemoglobin Concent 33.5 32-36 g/dl Platelet Count 184 130-400 K/uL Mean Platelet Volume 10.2 7.4-10.4 fL Neutrophils (%) (Auto) 67.9 % Lymphocytes (%) (Auto) 15.4 % Monocytes (%) (Auto) 14.4 % Eosinophils (%) (Auto) 1.5 % Basophils (%) (Auto) 0.2 % Neutrophils # (Auto) 7.47 1.4-6.5 K/uL Lymphocytes # (Auto) 1.70 1.2-3.4 K/uL Monocytes # (Auto) 1.59 0.11-0.59 K/uL Eosinophils # (Auto) 0.16 0-0.5 K/uL Basophils # (Auto) 0.02 0-0.2 K/uL RDW Standard Deviation 51.6 36.4-46.3 fL RDW Coefficient of Variation 15.1 11.5-14.5 % Immature Granulocyte % (Auto) 0.6 % Immature Granulocyte # (Auto) 0.07 0.00-0.02 K/uL Sodium Level 141 136-145 mmol/L Potassium Level 4.0 3.5-5.1 mmol/L Chloride Level 105 98-107 mmol/L Carbon Dioxide Level 29 21-32 mmol/L Anion Gap 7.0 3-11 mmol/L Blood Urea Nitrogen 16 7-18 mg/dl Creatinine 1.50 0.60-1.40 mg/dl Est Creatinine Clear Calc Drug Dose 51.1 ml/min Estimated GFR () 57.0 Estimated GFR (Non- 49.2 BUN/Creatinine Ratio 10.4 10-20 Random Glucose 164 70-99 mg/dl Calcium Level 9.1 8.5-10.1 mg/dl Magnesium Level 1.6 1.8-2.4 mg/dl Total Bilirubin 1.0 0.2-1 mg/dl Direct Bilirubin 0.4 0-0.2 mg/dl Aspartate Amino Transf (AST/SGOT) 15 15-37 U/L Alanine Aminotransferase (ALT/SGPT) 18 12-78 U/L Alkaline Phosphatase 120 45-117 U/L Troponin I < 0.015 0-0.045 ng/ml C-Reactive Protein 16.90 0-0.29 mg/dl Total Protein 7.1 6.4-8.2 gm/dl Albumin 2.8 3.4-5.0 gm/dl Procalcitonin 0.49 0-0.5 ng/ml Bedside Lactic Acid Venous 1.79 0.90-1.70 mmol/L Microbiology Results 04/20/17 Blood Culture, Received Pending 04/20/17 Blood Culture, Received Pending 04/20/17 Urine Culture, Received Pending Diagnostic Radiology ABDOMEN AND PELVIS CT WITH IV CONTRAST CT DOSE: 383.84 mGy.cm HISTORY: left flank pain, fevers, UTI TECHNIQUE: Multiaxial CT images of the abdomen and pelvis were performed following the use of intravenous contrast. COMPARISON STUDY: Abdomen and pelvis CT 07/18/2014. FINDINGS: The lung bases are essentially clear. 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 Old, healed left-sided rib fractures. The liver, gallbladder, spleen, pancreas, and adrenal glands are unremarkable. Heterogeneous perfusion within the left kidney. There is also a small focus of heterogeneous perfusion within the interpolar region of the right kidney. Hypodense lesions within the right kidney likely represent cysts. No hydronephrosis. Mild bilateral perinephric edema. No retroperitoneal lymphadenopathy. Mild bladder wall thickening. Colonic diverticulosis. No bowel wall thickening or obstruction. Normal appendix. Mildly ectatic abdominal aorta. IMPRESSION: 1. Heterogeneous perfusion within the bilateral kidneys, left greater than right. This likely represents bilateral pyelonephritis. 2. Mild bladder wall thickening consistent with a cystitis. 3. No bowel wall thickening or obstruction. 4. Normal appendix. CXR normal EKG Normal sinus rhythm Possible Left atrial enlargement Borderline ECG Impression Assessment and Plan This is a 62 year old male with a PMH of ulcerative colitis, Hooper's disease, CAD s/p stents x2, insulin dependent DM2, COPD, HTN, HLD, depression/anxiety Bilateral Pyelonephritis +fevers, mild leukocytosis urine culture as an outpatient - E. coli sensitive to Cipro, Rocephin, etc. failed outpatient PO Cipro will start Rocephin here, give IVFs for dehydration Dilaudid PRN for pain Tylenol PRN for fevers full liquid diet for now, advance as tolerated urine culture/blood cultures pending Insulin Dependent DM2 will start Lantus 5 units BID sliding scale monitor BSGs CAD s/p stents continue aspirin, statin, b-pat, Imdur hold LILIAN-I COPD continue home inhalers Matthew's Hydrocortisone 20mg BID can go back to home dose once infectious process is over Ulcerative Colitis cont. Questran powder DVT ppx Lovenox; monitor for any GI bleeding FULL CODE VTE Prophylaxis VTE Risk Assessment Done? Y/N: Yes Risk Level: Moderate
[2017-04-20 15:52] LABS: INR 1.1 (0.9-1.1); PARTIAL THROMBOPLASTIN RATIO 1.1; PROTHROMBIN TIME (PATIENT) 11.4 SECONDS (9.0-12.0)
[2017-04-20 16:00] VITALS: O2SAT 91
[2017-04-20] MEDS: [UNRECOGNIZED DRUG - OTHER] SCH ×2 (16:00→23:45)
[2017-04-20 16:03] VITALS: BP 136/80; PULSE 84; TEMP 36.7; O2SAT 95
[2017-04-20] MEDS: HYDROmorphone INJ 1 MG/ML SYR IV PRN ×3 (16:11→23:32)
[2017-04-20] MEDS: SODIUM CHLORIDE 0.9% 1000ML 1,000 ML IV SCH (16:19)
[2017-04-20] MEDS: INSULIN ASPART 100 UNITS/ML 3 ML PEN SC SCH ×2 (16:30→20:36)
[2017-04-20] MEDS ORDERED: ALBUTEROL HFA 8 GM INHALER INH PRN (17:00)
[2017-04-20] MEDS: NYSTATIN SUSP 500,000 U/5 ML UDC PO SCH ×2 (17:09→19:39)
[2017-04-20] MEDS: CHOLESTYRAMINE LIGHT 4 GM PKT PO SCH ×2 (17:10→21:51)
[2017-04-20] MEDS: ALBUTEROL 0.083% NEBU SOLN 3 ML VIAL INH SCH ×2 (17:45→20:08)
[2017-04-20] MEDS: ENOXAPARIN 40 MG/0.4 ML SYR SQ SCH (18:08)
[2017-04-20 18:50] VITALS: PULSE 103; O2SAT 98
[2017-04-20 19:30] VITALS: TEMP 36.8
[2017-04-20] MEDS ORDERED: NURSING VERBAL MED ORDER ONE ×3 (19:30→22:45)
[2017-04-20] MEDS: MAGNESIUM CHLORIDE 64MG DELAYED REL TAB PO SCH (19:38)
[2017-04-20] MEDS: TRAMADOL HCL 50 MG TAB PO PRN (19:38)
[2017-04-20] MEDS: RANITIDINE HCL 150 MG TAB PO SCH (19:40)
[2017-04-20] MEDS: HYDROCORTISONE 10 MG TAB PO SCH (19:41)
[2017-04-20] MEDS: METOPROLOL TARTRATE 100 MG TAB PO SCH (19:41)
[2017-04-20] MEDS: INSULIN GLARGINE SOLOSTAR 100 UNITS/ML 3 ML PEN SC SCH (20:36)
[2017-04-20 23:07] VITALS: BP 116/74; PULSE 64; TEMP 36.6; O2SAT 95
[2017-04-21] VITALS (8 sets, daily range): BP systolic 120–128; BP diastolic 74–78; PULSE 59–79; TEMP 36.4; O2SAT 94–98
[2017-04-21] MEDS: SODIUM CHLORIDE 0.9% 1000ML 1,000 ML IV SCH ×3 (00:22→20:32)
[2017-04-21] MEDS: HYDROmorphone INJ 1 MG/ML SYR IV PRN ×7 (02:38→22:05)
[2017-04-21 07:01] LABS: HEMATOCRIT 38.1 % (42-52); MEAN CELL VOLUME 92.7 fL (80-100); MEAN CORPUSCULAR HEMOGLOBIN 28.5 pg (25-34); MEAN CORPUSCULAR HGB CONC 30.7 g/dl (32-36); MEAN PLATELET VOLUME 9.8 fL (7.4-10.4); PLATELET COUNT 165 K/uL (130-400); RED BLOOD COUNT 4.11 M/uL (4.7-6.1); WHITE BLOOD COUNT 6.85 K/uL (4.8-10.8)
[2017-04-21] MEDS: ALBUTEROL 0.083% NEBU SOLN 3 ML VIAL INH SCH ×4 (07:25→19:18)
[2017-04-21 07:36] LABS: BUN/CREATININE RATIO 12.5 (10-20); CALCIUM 8.2 mg/dl (8.5-10.1); CREATININE 1.2 mg/dl (0.60-1.40); MAGNESIUM 1.8 mg/dl (1.8-2.4); POTASSIUM 4.6 mmol/L (3.5-5.1)
[2017-04-21] MEDS: [UNRECOGNIZED DRUG - OTHER] SCH ×3 (07:48→23:52)
[2017-04-21] MEDS: TIOTROPIUM BROMIDE 5 PUFF/90 MCG INH INH SCH (07:48)
[2017-04-21] MEDS: ASPIRIN 81 MG CHEW PO SCH (07:49)
[2017-04-21] MEDS: FLUCONAZOLE 100 MG TAB PO SCH (07:50)
[2017-04-21] MEDS: ATORVASTATIN 40 MG TAB PO SCH (07:50)
[2017-04-21] MEDS: POTASSIUM CHLORIDE 20 MEQ TABCR PO SCH (07:51)
[2017-04-21] MEDS: ISOSORBIDE MONONITRATE 60 MG TABCR PO SCH (07:52)
[2017-04-21] MEDS: METOPROLOL TARTRATE 100 MG TAB PO SCH ×2 (07:52→20:34)
[2017-04-21] MEDS: HYDROCORTISONE 10 MG TAB PO SCH (07:53)
[2017-04-21] MEDS: NYSTATIN SUSP 500,000 U/5 ML UDC PO SCH ×4 (07:53→20:35)
[2017-04-21] MEDS: FLUOXETINE HCL 20 MG CAP PO SCH (07:54)
[2017-04-21] MEDS: MIRTAZAPINE SOLTAB 15 MG PO SCH (07:55)
[2017-04-21] MEDS: MAGNESIUM CHLORIDE 64MG DELAYED REL TAB PO SCH ×2 (07:55→20:34)
[2017-04-21] MEDS: RANITIDINE HCL 150 MG TAB PO SCH ×2 (07:56→20:34)
[2017-04-21] MEDS: TRAMADOL HCL 50 MG TAB PO PRN (08:05)
[2017-04-21] MEDS: INSULIN ASPART 100 UNITS/ML 3 ML PEN SC SCH ×4 (08:14→20:43)
[2017-04-21] MEDS: INSULIN GLARGINE SOLOSTAR 100 UNITS/ML 3 ML PEN SC SCH ×2 (08:15→20:43)
[2017-04-21] MEDS ORDERED: LISINOPRIL 5 MG TAB PO SCH (09:00)
[2017-04-21] MEDS: CHOLESTYRAMINE LIGHT 4 GM PKT PO SCH ×4 (09:58→22:05)
[2017-04-21] MEDS: CEFTRIAXONE SOD INJ 1 GM in DEXTROSE 5% ADD-VANTAGE 50ML 50 ML IV SCH (12:33)
[2017-04-21] MEDS ORDERED: NURSING VERBAL MED ORDER ONE (13:30)
--- NOTE | 2017-04-21 15:10 | Progress Note ---
Internal Med Progress Note Date of Service: April 21, 2017. Provider Documentation: SUBJECTIVE: Patient is still c/o b/l flank/lower abdominal pain, dysuria- 6/10 intensity No nausea, vomiting, fever, chills. OBJECTIVE: Vital Signs-as noted below Exam: General-AAOX3, no distress Neck-Supple, No JVD Lungs-AEBE, no wheezing, rhonchi Heart-S1, S2 Normal, No murmurs Abdomen-Soft, non tender, non distended, BS present , B/L Flank tenderness Extremities-No edema Lab data as noted below. Diagnostic Radiology ABDOMEN AND PELVIS CT WITH IV CONTRAST CT DOSE: 383.84 mGy.cm HISTORY: left flank pain, fevers, UTI TECHNIQUE: Multiaxial CT images of the abdomen and pelvis were performed following the use of intravenous contrast. COMPARISON STUDY: Abdomen and pelvis CT 07/18/2014. FINDINGS: The lung bases are essentially clear. 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 Old, healed left-sided rib fractures. The liver, gallbladder, spleen, pancreas, and adrenal glands are unremarkable. Heterogeneous perfusion within the left kidney. There is also a small focus of heterogeneous perfusion within the interpolar region of the right kidney. Hypodense lesions within the right kidney likely represent cysts. No hydronephrosis. Mild bilateral perinephric edema. No retroperitoneal lymphadenopathy. Mild bladder wall thickening. Colonic diverticulosis. No bowel wall thickening or obstruction. Normal appendix. Mildly ectatic abdominal aorta. IMPRESSION: 1. Heterogeneous perfusion within the bilateral kidneys, left greater than right. This likely represents bilateral pyelonephritis. 2. Mild bladder wall thickening consistent with a cystitis. 3. No bowel wall thickening or obstruction. 4. Normal appendix. CXR normal EKG Normal sinus rhythm Possible Left atrial enlargement Borderline ECG ASSESSMENT & PLAN: Assessment and Plan This is a 62 year old male with a PMH of ulcerative colitis, [place]'s disease, CAD s/p stents x2, insulin dependent DM2, COPD, HTN, HLD, depression/anxiety BILATERAL PYELONEPHRITIS : Afebrile, No leucocytosis. -Clinically improved, but still persistent flank pain/dysuria -IV Rocephin (Day 2). Had received PO Ciprofloxacin for E coli UTI outpatient. Urine cx - E coli sensitive to Ciprofloxacin / Rocephin. -IVF - continue -Pain mx- IV Dilaudid 1 mg q 3 hours- continue, change tramadol to percocet q 4 hours due to persistent severe pain -Urine cx repeat- pin point growth (likely secondary to receiving antibiotics prior to admission) IDDM-2 - Lantus 5 units BID - Insulin sliding scale - Monitor BSGs CAD s/p stents -continue aspirin, statin, b-pat, Imdur -hold LILIAN-I COPD -Stable with no signs of exacerbation -continue home inhalers MATTHEW'S -Continue with Hydrocortisone 20mg daily (change from BID) -Monitor BP while active infection ongoing ULCERATIVE COLITIS- -Cont. Questran powder DVT ppx -SQ Lovenox; monitor for any GI bleeding FULL CODE DISPOSITION Likely discharge in AM if clinically improves Vital Signs: Date Time Temp Pulse Resp B/P Pulse Ox O2 Delivery O2 Flow Rate FiO2 04/21/17 11:30 72 18 96 Room Air 04/21/17 08:00 96 Room Air 04/21/17 07:37 36.4 59 18 120/78 96 Room Air 04/21/17 07:25 59 22 98 Room Air 04/21/17 00:00 Room Air 04/20/17 23:07 36.6 64 20 116/74 95 Room Air 04/20/17 19:30 36.8 04/20/17 18:50 103 22 98 Room Air 04/20/17 16:03 36.7 84 18 136/80 95 Room Air 04/20/17 16:00 91 Room Air 04/20/17 15:34 89 18 128/74 91 Lab Results: Results Past 24 Hours Test 04/20/17 16:43 04/20/17 20:25 04/21/17 06:46 04/21/17 07:50 Range/Units Bedside Glucose 133 203 170 70-99 mg/dl White Blood Count 6.85 4.8-10.8 K/uL Red Blood Count 4.11 4.7-6.1 M/uL Hemoglobin 11.7 14.0-18.0 g/dL Hematocrit 38.1 42-52 % Mean Corpuscular Volume 92.7 80-100 fL Mean Corpuscular Hemoglobin 28.5 25-34 pg Mean Corpuscular Hemoglobin Concent 30.7 32-36 g/dl RDW Standard Deviation 51.1 36.4-46.3 fL RDW Coefficient of Variation 14.9 11.5-14.5 % Platelet Count 165 130-400 K/uL Mean Platelet Volume 9.8 7.4-10.4 fL Sodium Level 140 136-145 mmol/L Potassium Level 4.6 3.5-5.1 mmol/L Chloride Level 108 98-107 mmol/L Carbon Dioxide Level 26 21-32 mmol/L Anion Gap 6.0 3-11 mmol/L Blood Urea Nitrogen 15 7-18 mg/dl Creatinine 1.20 0.60-1.40 mg/dl Est Creatinine Clear Calc Drug Dose 63.9 ml/min Estimated GFR () 74.7 Estimated GFR (Non- 64.4 BUN/Creatinine Ratio 12.5 10-20 Random Glucose 198 70-99 mg/dl Calcium Level 8.2 8.5-10.1 mg/dl Magnesium Level 1.8 1.8-2.4 mg/dl Test 04/21/17 11:25 Range/Units Bedside Glucose 288 70-99 mg/dl
[2017-04-21] MEDS: OXYCODONE/ACETAMINOPHEN 5-325 TAB PO PRN ×2 (15:17→20:32)
[2017-04-21] MEDS: ENOXAPARIN 40 MG/0.4 ML SYR SQ SCH (17:42)
[2017-04-21] MEDS: ALUMINUM/MAGNESIUM/SIMETH (MAALOX MAX) 30 ML UDC PO PRN (23:24)
[2017-04-22] VITALS (7 sets, daily range): BP systolic 137–153; BP diastolic 80–97; PULSE 60–78; TEMP 36.7–36.8; O2SAT 97
[2017-04-22] MEDS: HYDROmorphone INJ 1 MG/ML SYR IV PRN ×2 (01:07→05:41)
[2017-04-22] MEDS ORDERED: PANTOprazole SOD 40 MG TAB PO STA (02:40)
[2017-04-22 03:17] LABS: PARTIAL THROMBOPLASTIN RATIO 1.1
[2017-04-22] MEDS: ALUMINUM/MAGNESIUM/SIMETH (MAALOX MAX) 30 ML UDC PO PRN (05:41)
[2017-04-22] MEDS: SODIUM CHLORIDE 0.9% 1000ML 1,000 ML IV SCH ×2 (05:46→13:19)
[2017-04-22] MEDS: ALBUTEROL 0.083% NEBU SOLN 3 ML VIAL INH SCH ×2 (07:07→11:05)
[2017-04-22] MEDS: RANITIDINE HCL 150 MG TAB PO SCH (07:45)
[2017-04-22] MEDS ORDERED: PANTOprazole SOD 40 MG TAB PO SCH (08:00)
[2017-04-22] MEDS ORDERED: GI COCKTAIL PO ONE (08:00)
[2017-04-22] MEDS ORDERED: HYDROCORTISONE 10 MG TAB PO SCH (08:00)
[2017-04-22] MEDS ORDERED: ALUMINUM/MAGNESIUM SUSP 18 ML, LIDOCAINE HCL 2% VISCOUS SOLN 6 ML, BARCODE IDENTIFIER 1 EA PO SCH ×2 (08:30)
[2017-04-22] MEDS: ATORVASTATIN 40 MG TAB PO SCH (09:29)
[2017-04-22] MEDS: MAGNESIUM CHLORIDE 64MG DELAYED REL TAB PO SCH (09:29)
[2017-04-22] MEDS: POTASSIUM CHLORIDE 20 MEQ TABCR PO SCH (09:30)
[2017-04-22] MEDS: FLUCONAZOLE 100 MG TAB PO SCH (09:30)
[2017-04-22] MEDS: MIRTAZAPINE SOLTAB 15 MG PO SCH ×2 (09:31→11:22)
[2017-04-22] MEDS: ISOSORBIDE MONONITRATE 60 MG TABCR PO SCH (09:31)
[2017-04-22] MEDS: TIOTROPIUM BROMIDE 5 PUFF/90 MCG INH INH SCH ×2 (09:32→11:21)
[2017-04-22] MEDS: FLUOXETINE HCL 20 MG CAP PO SCH (09:32)
[2017-04-22] MEDS: [UNRECOGNIZED DRUG - OTHER] SCH ×2 (09:32→13:09)
[2017-04-22] MEDS: METOPROLOL TARTRATE 100 MG TAB PO SCH (09:34)
[2017-04-22] MEDS: INSULIN ASPART 100 UNITS/ML 3 ML PEN SC SCH ×2 (09:37→13:13)
[2017-04-22] MEDS: INSULIN GLARGINE SOLOSTAR 100 UNITS/ML 3 ML PEN SC SCH (09:40)
[2017-04-22] MEDS: NYSTATIN SUSP 500,000 U/5 ML UDC PO SCH ×2 (09:47→13:06)
[2017-04-22] MEDS: CHOLESTYRAMINE LIGHT 4 GM PKT PO SCH ×2 (09:49→13:08)
[2017-04-22] MEDS: ASPIRIN 81 MG CHEW PO SCH ×2 (09:52→11:22)
[2017-04-22] MEDS: CEFTRIAXONE SOD INJ 1 GM in DEXTROSE 5% ADD-VANTAGE 50ML 50 ML IV SCH (13:07)
--- NOTE | 2017-04-22 13:27 | Progress Note ---
Internal Med Progress Note Date of Service: April 22, 2017. Provider Documentation: SUBJECTIVE: Patient is still c/o b/l flank/lower abdominal pain, dysuria, but says it is tolerable and wants to be discharged. Have not used IV Dilaudid and controlled on percocet PRN. Had some burning chest pain overnight, GI cocktail/Protonix helped. No nausea, vomiting, fever, chills throughout hospital course Tolerating PO well. OBJECTIVE: Vital Signs-as noted below Exam: General-AAOX3, no distress Neck-Supple, No JVD Lungs-AEBE, no wheezing, rhonchi Heart-S1, S2 Normal, No murmurs Abdomen-Soft, non tender, non distended, BS present , B/L Flank tenderness Extremities-No edema Lab data as noted below. Diagnostic Radiology ABDOMEN AND PELVIS CT WITH IV CONTRAST CT DOSE: 383.84 mGy.cm HISTORY: left flank pain, fevers, UTI TECHNIQUE: Multiaxial CT images of the abdomen and pelvis were performed following the use of intravenous contrast. COMPARISON STUDY: Abdomen and pelvis CT 07/18/2014. FINDINGS: The lung bases are essentially clear. 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 Old, healed left-sided rib fractures. The liver, gallbladder, spleen, pancreas, and adrenal glands are unremarkable. Heterogeneous perfusion within the left kidney. There is also a small focus of heterogeneous perfusion within the interpolar region of the right kidney. Hypodense lesions within the right kidney likely represent cysts. No hydronephrosis. Mild bilateral perinephric edema. No retroperitoneal lymphadenopathy. Mild bladder wall thickening. Colonic diverticulosis. No bowel wall thickening or obstruction. Normal appendix. Mildly ectatic abdominal aorta. IMPRESSION: 1. Heterogeneous perfusion within the bilateral kidneys, left greater than right. This likely represents bilateral pyelonephritis. 2. Mild bladder wall thickening consistent with a cystitis. 3. No bowel wall thickening or obstruction. 4. Normal appendix. CXR normal EKG Normal sinus rhythm Possible Left atrial enlargement Borderline ECG ASSESSMENT & PLAN: Assessment and Plan This is a 62 year old male with a PMH of ulcerative colitis, Matthew's disease, CAD s/p stents x2, insulin dependent DM2, COPD, HTN, HLD, depression/anxiety BILATERAL PYELONEPHRITIS : Improved Afebrile since admission, No leucocytosis. -Clinically improved, but still persistent flank pain/dysuria which is now tolerable on PO medications. -IV Rocephin (Day 2). Had received PO Ciprofloxacin for E coli UTI outpatient. Urine cx - E coli sensitive to Ciprofloxacin / Rocephin. Change to PO Levofloxacin 500 mg x 8 more days to complete course of 10 days -IV Fluids -Pain mx - IV Dilaudid 1 mg q 3 hours- has not used it since yesterday; Pain controlled on Percocet q 4 hours . -Urine cx repeat- pin point growth (likely secondary to receiving antibiotics prior to admission)-->Lactobacillus IDDM-2 - Lantus 5 units BID - Insulin sliding scale - Monitor BSGs outpatient CAD s/p stents -continue aspirin, statin, b-pat, Imdur -hold LILIAN-I COPD -Stable with no signs of exacerbation -continue home inhalers MATTHEW'S -Continue with Hydrocortisone 20mg daily (changed from BID) -Monitor BP while active infection ongoing ULCERATIVE COLITIS-stable with no signs of exacerbation -Cont. Questran powder DVT ppx -SQ Lovenox FULL CODE DISPOSITION Eager to be discharged home and feels the pain is tolerable and would be more comfortable at home. Vital Signs: Date Time Temp Pulse Resp B/P Pulse Ox O2 Delivery O2 Flow Rate FiO2 04/22/17 11:20 72 151/85 04/22/17 11:05 73 18 97 Room Air 04/22/17 09:30 60 153/84 04/22/17 07:34 36.7 60 18 137/80 97 Room Air 04/22/17 07:30 Room Air 04/22/17 07:10 60 18 97 Room Air 04/22/17 00:15 36.8 78 16 145/97 97 Room Air 04/22/17 00:00 Room Air 04/21/17 19:18 71 18 97 Room Air 04/21/17 16:00 94 Room Air 04/21/17 15:33 36.4 79 18 128/74 94 Room Air 04/21/17 15:09 77 18 96 Room Air Lab Results: Results Past 24 Hours Test 04/21/17 16:03 04/21/17 16:35 04/21/17 19:42 04/22/17 02:49 Range/Units Bedside Glucose 320 294 270 70-99 mg/dl Activated Partial Thromboplast Time 28.9 21.0-31.0 SECONDS Partial Thromboplastin Ratio 1.1 Troponin I < 0.015 0-0.045 ng/ml Test 04/22/17 07:42 04/22/17 08:54 04/22/17 11:26 Range/Units Bedside Glucose 155 150 70-99 mg/dl Troponin I < 0.015 0-0.045 ng/ml
[2017-04-22] MEDS ORDERED: IPRASOL4 INH (13:29)
[2017-04-22] MEDS ORDERED: ALBINS/ INH (13:29)
[2017-04-22] MEDS ORDERED: VNTHFA/IN INH (13:29)
[2017-04-22] MEDS ORDERED: LEVO-459 PO (13:30)
--- NOTE | 2017-04-22 13:35 | Discharge Summary ---
Discharge Summary Date of Service April 22, 2017. Discharge Summary Admission Date: April 20, 2017 at 14:15 Discharge Date: April 22, 2017 Discharge Disposition: Home Principal Diagnosis: 1. Pyelonephritis, Bilateral 2. Secondary Diagnoses/Problems: 1. IDDM 2. CAD with stent 3. COPD 4. Addisons disease 5. Ulcerative colitis Procedures: IV fluids IV antibiotics CT scan abd/pelvis CXR Consultations: None Pending Studies/Follow-Up: Instructions / Follow-Up Instructions / Follow-Up MEDICATION CHANGES: 1. New medication: Levofloxacin 500 mg PO daily x 8 more days to complete course of 10 days FOLLOW UP 1. Follow up with Dr Armenta 04/27/17 at 10:45 AM Medication Reconciliation New Medications: Levofloxacin (Levaquin) 500 Mg Tab 500 MG PO DAILY for 8 Days, #16 TAB Changed Medications: Albuterol Hfa (Ventolin Hfa) 200 Puffs/39231 Mcg Aers 3-4 PUFFS INH QID PRN for sob/wheezing, #1 INHALER (Medication details modified) Albuterol Sulf (Proventil 0.083% 2.5MG/3ML) 2.5 Mg/3 Ml Nebu 2.5 MG INH QID PRN for sob/wheezing, #30 EA (Medication details modified) Ipratropium-Albuterol (Duoneb) 3 Ml Nebu 1 TREATMENT INH QID PRN for sob/wheezing, #30 INHA (Medication details modified) Continued Medications: Alprazolam (Xanax) 0.5 Mg Tab 0.5 MG PO HS PRN for Sleep, TAB Aspirin (Aspirin Chewable) 81 Mg Chew 81 MG PO QAM Atorvastatin (Lipitor) 80 Mg Tab 1 TAB PO DAILY for 30 Days, #30 TAB 5 Refills Cholestyramine (Questran) 4 Gm Pow 4 GM PO QID Dexamethasone Sod Phos (Dexamethasone Sodium Phos) 4 Mg/Ml Inj 1 DOSE IM DIRECTED Fluconazole (Diflucan) 100 Mg Tab 100 MG PO DAILY, TAB Fluoxetine Hcl (Prozac) 20 Mg Cap 1 CAP PO QAM for 30 Days, #30 CAP 1 Refill Fluticasone Furoate-Vilanterol (Breo Ellipta) 1 Inh Inh 1 INHA PO DAILY Hydrocortisone (Cortef) 10 Mg Tab 2 TAB PO DAILY, TAB Hydrocortisone (Cortef) 10 Mg Tab 1 TAB PO PM Hydroxyzine HCl (Hydroxyzine HCl) 25 Mg Tab 50 MG PO HSZ PRN for Anxiety/Insomnia for 30 Days, #30 TAB Insulin Glargine (Lantus) 100 Unit/Ml Inj 10-20 UNITS SC DAILY, VIAL Insulin Glulisine (Apidra) 100 Unit/Ml Inj 5 UNITS SC BIDM given with lunch and dinner Isosorbide Mononitrate Ext Rel (Imdur Ext Rel) 60 Mg Ertab 60 MG PO QAM, TAB Lisinopril (Zestril) 5 Mg Tab 5 MG PO QAM, TAB Magnesium Chloride (Mag64) 535 Mg Tab 8 TABS PO BID Metoprolol Tartrate (Lopressor) (Lopressor) 100 Mg Tab 100 MG PO BID, TAB Mirtazapine Soltab (Remeron Soltab) 30 Mg Soltab 30 MG PO DAILY, TAB Nystatin (Nystatin Suspension) 1 Ml Susp 5 ML PO QID for 30 Days Potassium Chloride Microencaps (Potassium Chloride Er) 20 Meq Tab 1 TAB PO DAILY for 30 Days, #30 TAB 5 Refills Ranitidine Hcl (Zantac) 150 Mg Tab 150 MG PO BID, TAB Tiotropium [place] (Spiriva Handihaler) 30 Puff/540 Mcg Aerp 1 CAP INH DAILY, INHALER Discontinued Medications: Ciprofloxacin Hcl (Cipro) 500 Mg Tab 500 MG PO BID, TAB Admission Information HPI (per Admitting provider): This is a 62 year old male with a PMH of ulcerative colitis, [place]'s disease, CAD s/p stents x2, insulin dependent DM2, COPD, HTN, HLD, depression/anxiety presents to the ER with a one week history of dysuria, frequency, flank pain, fevers/chills - states he went to his primary care physician due to these symptoms - was prescribed Cipro and urine culture performed - this grew out E. coli sensitive to Cipro - he states he felt better x2 days, but then on Thursday , the symptoms worsened - and now he has developed nausea/vomiting, worsening pain, fevers/chills. CT performed and shows bilateral pyelonephritis. Currently, he feels okay, pain still present at bilateral flanks - L > R; improved nausea. No diarrhea, no bleeding. Physical Exam (per Admitting): General Appearance: + mild distress (weakness, fatigue) Head: normocephalic, atraumatic Eyes: normal inspection Respiratory/Chest: chest non-tender, lungs clear, normal breath sounds, no respiratory distress, no accessory muscle use Cardiovascular: regular rate, rhythm, no edema, no gallop, no JVD, no murmur , normal peripheral pulses Abdomen/GI: normal bowel sounds, soft, + tenderness (suprapubic; bilateral flank tenderness) Back: + left CVA tenderness, + right CVA tenderness Extremities/Musculoskelatal: no calf tenderness, normal capillary refill, no pedal edema Neurologic/Psych: no motor/sensory deficits, alert, normal mood/affect Skin: normal color Lymphatic: no adenopathy Hospital Course Assessment and Plan This is a 62 year old male with a PMH of ulcerative colitis, [place]'s disease, CAD s/p stents x2, insulin dependent DM2, COPD, HTN, HLD, depression/anxiety BILATERAL PYELONEPHRITIS : Improved Afebrile since admission, No leucocytosis. -Clinically improved, but still persistent flank pain/dysuria which is now tolerable on PO medications. -IV Rocephin (Day 2). Had received PO Ciprofloxacin for E coli UTI outpatient. Urine cx - E coli sensitive to Ciprofloxacin / Rocephin. Change to PO Levofloxacin 500 mg x 8 more days to complete course of 10 days -IV Fluids -Pain mx - IV Dilaudid 1 mg q 3 hours- has not used it since yesterday; Pain controlled on Percocet q 4 hours . -Urine cx repeat- pin point growth (likely secondary to receiving antibiotics prior to admission)-->Lactobacillus IDDM-2 - Lantus 5 units BID - Insulin sliding scale - Monitor BSGs outpatient CAD s/p stents -continue aspirin, statin, b-pat, Imdur -hold LILIAN-I COPD -Stable with no signs of exacerbation -continue home inhalers EUSEBIO'S -Continue with Hydrocortisone 20mg daily (changed from BID) -Monitor BP while active infection ongoing ULCERATIVE COLITIS-stable with no signs of exacerbation -Cont. Questran powder DVT ppx -SQ Lovenox FULL CODE DISPOSITION Eager to be discharged home and feels the pain is tolerable and would be more comfortable at home. Total time spent on discharge = 35 MINUTES This includes examination of the patient, discharge planning, medication reconciliation, and communication with other providers. Discharge Instructions Discharge Goals Goal(s): Therapeutic intervention Activity Recommendations Activity Limitations: resume your previous activity . Instructions / Follow-Up Instructions / Follow-Up MEDICATION CHANGES: 1. New medication: Levofloxacin 500 mg PO daily x 8 more days to complete course of 10 days FOLLOW UP 1. Follow up with Dr Armenta 04/27/17 at 10:45 AM Current Hospital Diet Patient's current hospital diet: Diabetes Type 2 Diet Discharge Diet Recommended Diet: AHA Diet (Heart Healthy), Low Sodium Diet (2gm Na) Pending Studies Studies pending at discharge: no Laboratory Results Hemoglobin A1c Test 02/20/17 06:05 Range/Units Estimated Average Glucose 154 mg/dl Hemoglobin A1c 7.0 H 4.5-5.6 % Medical Emergencies . Who to Call and When: Medical Emergencies: If at any time you feel your situation is an emergency, please call 911 immediately. . Non-Emergent Contact Non-Emergency issues call your: Primary Care Provider . . "Provider Documentation" section prepared by Anjali Ruiz. . VTE Core Measure Inpt VTE Proph given/why not?: Pasha Desir, SCD's
[2017-04-22] MEDS ORDERED: OXYC-57 PO (13:36)
[2017-05-08] MEDS ORDERED: LPR50X PO (09:58)
[2017-05-08] MEDS ORDERED: VANC5CAP PO (09:58)
[2017-05-08] MEDS ORDERED: SULF-183 PO (09:58)
[2017-05-08] MEDS ORDERED: OXYC-57 PO (10:32)
[2017-05-21] MEDS ORDERED: HYD10 PO ×2 (09:58→15:41)
[2017-05-21] MEDS ORDERED: RANI150T3 PO (09:58)
[2017-05-21] MEDS ORDERED: ISOS60TA25 PO (10:03)
[2017-05-21] MEDS ORDERED: ASPCH81X PO (10:03)
[2017-05-21] MEDS ORDERED: LISI-729 PO (10:03)
[2017-05-21] MEDS ORDERED: ALPR-411 PO (10:03)
[2017-05-21] MEDS ORDERED: INSU100I SC (10:45)
[2017-05-21] MEDS ORDERED: INSDGI SC (11:29)
[2017-05-21] MEDS ORDERED: MIRT30TA2 PO (11:29)
[2017-05-21] MEDS ORDERED: SPRIN/30 INH (11:29)
[2017-05-21] MEDS ORDERED: DEXA4INJ32 IM (15:41)
[2017-05-21] MEDS ORDERED: FLUT1INH PO (15:41)
[2017-05-21] MEDS ORDERED: ATOR-26 PO (15:41)
[2017-09-16] MEDS ORDERED: SLWMEC PO (08:54)
[2017-09-16] MEDS ORDERED: LMTHP PO (08:54)
[2017-09-16] MEDS ORDERED: CHOL4POW11 PO (08:54)
== END 2017-04-22 14:43 | disposition home or self-care (01) | DRG 690 ==
LOC: ENRESERVDT → ENRESERVTM → C.EDB 11:00 → C.MS4W 14:15
PROVIDERS: ADMIT Family Medicine; ATTEND Internal Medicine
DX: N12 Tubulo-interstitial nephritis, not specified as acute or chronic (principal); E27.1 Primary adrenocortical insufficiency; K51.90 Ulcerative colitis, unspecified, without complications; I25.10 Atherosclerotic heart disease of native coronary artery without angina pectoris; J44.9 Chronic obstructive pulmonary disease, unspecified; F41.9 Anxiety disorder, unspecified; F32.9 Major depressive disorder, single episode, unspecified; E78.00 Pure hypercholesterolemia, unspecified; F17.210 Nicotine dependence, cigarettes, uncomplicated; B96.20 Unspecified Escherichia coli [E. coli] as the cause of diseases classified elsewhere; E11.9 Type 2 diabetes mellitus without complications; I10 Essential (primary) hypertension; E78.5 Hyperlipidemia, unspecified; Z95.5 Presence of coronary angioplasty implant and graft; Z79.899 Other long term (current) drug therapy; Z79.82 Long term (current) use of aspirin; Z79.52 Long term (current) use of systemic steroids; Z79.4 Long term (current) use of insulin

== ENCOUNTER 2017-05-03 10:02 | Inpatient (IN) | payer OTHER ==
[2017-05-03] VITALS (9 sets, daily range): BP systolic 103–114; BP diastolic 67–74; PULSE 67–88; TEMP 36.3–36.4; O2SAT 96–100; Ht 177.8 cm; Wt 75.2 kg
[~2017-05-03] VITALS: Ht 177.8 cm; Wt 75.2 kg
[~2017-05-03 10:02] MED LIST changes: +ALBINS/ INH; -ALBU0.08 INH; -ATRIN INH; -CRFUDL PO; -DIPH-416 PO; +FLUC100T4 PO; -Humalog SQ; -INSDGI SC; +INSUINJ5 SC; +LEVO-459 PO; +MAGN64TA4 PO; +NYSS/ PO; +OXYC-57 PO; -RMR15 PO; -SLWMEC PO; -TIOTCAP INH
[2017-05-03] MEDS ORDERED: METOCLOPRAMIDE HCL INJ 5 MG/ML 2 ML VIAL IV STA (10:14)
[2017-05-03] MEDS ORDERED: SODIUM CHLORIDE 0.9% 1000ML 1,000 ML IV STA ×2 (10:14→11:02)
[2017-05-03] MEDS ORDERED: KETOROLAC TROMETHAMINE 30 MG/ML VIAL IV STA (10:14)
[2017-05-03] MEDS ORDERED: HYDROmorphone INJ 1 MG/ML SYR IV STA (10:14)
--- NOTE | 2017-05-03 10:18 | EMERGENCY ROOM VISIT NOTE ---
History Report prepared by Tisha: Ani Armijo Under the Supervision of: Dr. Leoncio Rios M.D. First contact with patient: 10:04 Stated Complaint: ABD PAIN History of Present Illness The patient is a 62 year old male who presents to the Emergency Room with complaints of persistent abdominal pain that started yesterday. He was brought to the ED via ALS from home. He reports the pain is located below his umbilicus and does not radiate anywhere. He rates his discomfort as a 9/10 in severity and describes it as feeling like a "dull ache". He has also experienced nausea, vomiting and diarrhea for the past day and had one episode of diarrhea again this morning. He notes he was in the hospital for a kidney infection last week and was discharged this past Thursday, 6 days ago. He denies any new urinary symptoms. The patient has a history of ulcerative colitis and follows with Dr. Keith of [facility]. He reports he recently had a UC flare and was in the hospital for approximately 10 days. He notes he is "on steroids all the time". The patient admits he is a current smoker. He also admits to recent travel, including visiting both [place] and [place] in the past 1 month. Source of History: patient Onset: yesterday Position: abdomen Symptom Intensity: 9/10 Quality: ache, dull Timing: other (persistent) Associated Symptoms: + nausea, + vomiting, + diarrhea, No urinary symptoms Review of Systems See HPI for pertinent positives & negatives. A total of 10 systems reviewed and were otherwise negative. Past Medical & Surgical Medical Problems: (1) Adrenal insufficiency (2) ARF (acute renal failure) (3) Diabetes (4) Hypercholesteremia (5) Hypertension (6) Major depressive disorder, recurrent episode with anxious distress (7) Ulcerative colitis Surgical Problems: (1) H/O percutaneous transluminal coronary angioplasty (2) Stented coronary artery Family History Cancer Diabetes mellitus Heart disease Hypertension Social History Smoking Status: Current Every Day Smoker Alcohol Use: none Drug Use: none Marital Status: Housing Status: lives with family Occupation Status: retired Current/Historical Medications Scheduled Aspirin (Aspirin Chewable), 81 MG PO QAM Atorvastatin (Lipitor), 1 TAB PO DAILY Cholestyramine (Questran), 4 GM PO QID Diphenoxylate/Atropine (Lomotil), 1 TAB PO TID Ferrous Sulfate (Ferrous Sulfate), 1 TAB PO DAILY Fluoxetine Hcl (Prozac), 1 CAP PO QAM Fluticasone Furoate-Vilanterol (Breo Ellipta), 1 INHA PO DAILY Hydrocortisone (Cortef), 20 MG PO QAM Hydrocortisone (Cortef), 10 TAB PO UD Insulin Glargine (Lantus), 10-20 UNITS SC UD Insulin Lispro (Human) (Humalog), SC UD Isosorbide Mononitrate Ext Rel (Imdur Ext Rel), 60 MG PO QAM Lisinopril (Zestril), 5 MG PO QAM Magnesium Chloride (Mag64), 8 TABS PO BID Metoprolol Tartrate (Lopressor) (Lopressor), 100 MG PO BID Mirtazapine Soltab (Remeron Soltab), 30 MG PO HS Nystatin (Nystatin), 5 ML PO QID Potassium Chloride Microencaps (Potassium Chloride Er), 1 TAB PO DAILY Ranitidine Hcl (Zantac), 150 MG PO BID Tiotropium [place] (Spiriva Handihaler), 1 CAP INH DAILY Scheduled PRN Albuterol Hfa (Ventolin Hfa), 3-4 PUFFS INH QID PRN for sob/wheezing Alprazolam (Xanax), 0.5 MG PO HS PRN for Sleep Dexamethasone Sod Phos (Dexamethasone Sodium Phos), 1 ML IM DIRECTED PRN for emergency treatment Fluconazole (Diflucan), 100 MG PO DAILY PRN for THRUSH Hydroxyzine HCl (Hydroxyzine HCl), 50 MG PO HSZ PRN for Anxiety/Insomnia Ipratropium-Albuterol (Duoneb), 1 TREATMENT INH QID PRN for sob/wheezing Allergies Coded Allergies: Azathioprine (Verified Adverse Reaction, Unknown, RENAL COMPLICATIONS, 10/09) Physical Exam Vital Signs Date Time Temp Pulse Resp B/P (MAP) Pulse Ox O2 Delivery O2 Flow Rate FiO2 05/03/17 12:47 61 15 107/63 98 05/03/17 12:22 68 16 103/69 100 Room Air 05/03/17 12:15 98 Room Air 05/03/17 11:47 68 17 104/59 98 Room Air 05/03/17 11:19 69 16 106/63 98 Room Air 05/03/17 11:09 67 20 76/52 97 Room Air 05/03/17 10:10 73 05/03/17 10:09 36.4 78 20 105/61 98 Room Air Physical Exam GENERAL: Patient is a healthy-appearing well-nourished 62 year old male. HEAD: Normocephalic atraumatic EYES: Ocular movements intact pupils equal and react to light OROPHARYNX mucous membranes are moist no exudates present no erythema or edema present NECK: Supple no nuchal rigidity CHEST: Good equal expansion LUNGS: Clear and equal to auscultation CARDIAC: Normal S1 and S2 ABDOMEN: Soft, diffusely tender throughout abdomen, no guarding. BACK: No CVA tenderness EXTREMITIES: No pain upon palpation normal muscle strength in all groups no clubbing cyanosis or edema NEURO: Patient is following commands is answering questions appropriately. Alert and oriented x3 Cranial Nerves 2-12 grossly intact Medical Decision & Procedures ER Provider Diagnostic Interpretation: Radiology results as stated below per my review and radiologist interpretation: CHEST ONE VIEW PORTABLE CLINICAL HISTORY: Shortness of breath. Abdominal pain. COMPARISON STUDY: No previous studies for comparison. FINDINGS: The cardiac and mediastinal contours are normal. There is no evidence of focal pulmonary consolidation. There is no evidence of failure. No pleural effusions are visualized. No free intraperitoneal air is visualized. IMPRESSION: No active disease in the chest. Electronically signed by: Oliverio Crawford M.D. 05/03/2017 10:[address] SCAN OF THE ABDOMEN AND PELVIS WITHOUT CONTRAST CLINICAL HISTORY: Diffuse abdominal pain, nausea, vomiting, diarrhea. COMPARISON STUDY: 04/20/2017 TECHNIQUE: CT scan of the abdomen and pelvis was performed from the lung bases to the proximal femurs. Images are reviewed in the axial, sagittal, and coronal planes. IV contrast was not administered for this examination. CT DOSE: 515.13 mGy.cm FINDINGS: Lower chest: The heart is normal in size and configuration, without pericardial effusion. The lung bases and pleural spaces are clear. Liver: The unenhanced liver is normal in size, contour, and attenuation. There is no intrahepatic biliary ductal dilatation. Gallbladder: Unremarkable. Spleen: Normal in size and attenuation. Pancreas: Unremarkable. Adrenal glands: Unremarkable. Kidneys: There is a 17 mm right renal cyst. No renal calculi are visualized. There is no hydronephrosis. No ureteral or bladder calculi are visualized. Bowel: There are fluid-filled colonic and small bowel loops. There are scattered air-fluid levels. There are no transition zones indicate bowel obstruction. The appendix appears normal. There is mild infiltration of the mesenteric fat within the right lower quadrant. There is adjacent jejunal diverticulum. A nonspecific, the findings could be secondary to a mild ileal diverticulitis. Peritoneum: There is no intraperitoneal free air or abdominal ascites. Vasculature: There is mild ectasia of the abdominal aorta which measures 25 mm in maximal diameter. Adenopathy: None. Pelvic viscera: There is bladder wall thickening. 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 IMPRESSION: 1. No renal, ureteral, or bladder calculi identified 2. No evidence of bowel obstruction. No evidence of free air 3. Bladder wall thickening. Clinical correlation in regards to a cystitis is recommended 4. Subtle infiltration of the mesenteric fat within the right lower quadrant. This is a nonspecific finding which may be secondary to a subtle ileal diverticulitis 5. Normal appendix Electronically signed by: Oliverio Crawford M.D. 05/03/2017 11:14 AM Laboratory Results 05/03/17 09:25 Red Blood Count 6.11, Mean Corpuscular Volume 90.3, Mean Corpuscular Hemoglobin 28.5, Mean Corpuscular Hemoglobin Concent 31.5, Mean Platelet Volume 11.0, Neutrophils (%) (Auto) 66.2, Lymphocytes (%) (Auto) 23.6, Monocytes (%) (Auto) 6.7, Eosinophils (%) (Auto) 1.6, Basophils (%) (Auto) 0.3, Neutrophils # (Auto) 12.04, Lymphocytes # (Auto) 4.30, Monocytes # (Auto) 1.21, Eosinophils # (Auto) 0.29, Basophils # (Auto) 0.05 05/03/17 09:25 Test 05/03/17 09:25 05/03/17 11:33 05/03/17 13:30 White Blood Count 18.19 K/uL (4.8-10.8) Red Blood Count 6.11 M/uL (4.7-6.1) Hemoglobin 17.4 g/dL (14.0-18.0) Hematocrit 55.2 % (42-52) Mean Corpuscular Volume 90.3 fL (80-100) Mean Corpuscular Hemoglobin 28.5 pg (25-34) Mean Corpuscular Hemoglobin Concent 31.5 g/dl (32-36) Platelet Count 491 K/uL (130-400) Mean Platelet Volume 11.0 fL (7.4-10.4) Neutrophils (%) (Auto) 66.2 % Lymphocytes (%) (Auto) 23.6 % Monocytes (%) (Auto) 6.7 % Eosinophils (%) (Auto) 1.6 % Basophils (%) (Auto) 0.3 % Neutrophils # (Auto) 12.04 K/uL (1.4-6.5) Lymphocytes # (Auto) 4.30 K/uL (1.2-3.4) Monocytes # (Auto) 1.21 K/uL (0.11-0.59) Eosinophils # (Auto) 0.29 K/uL (0-0.5) Basophils # (Auto) 0.05 K/uL (0-0.2) RDW Standard Deviation 49.3 fL (36.4-46.3) RDW Coefficient of Variation 14.8 % (11.5-14.5) Immature Granulocyte % (Auto) 1.6 % Immature Granulocyte # (Auto) 0.30 K/uL (0.00-0.02) Anion Gap 13.0 mmol/L (3-11) Est Creatinine Clear Calc Drug Dose 23.3 ml/min Estimated GFR () 21.2 Estimated GFR (Non- 18.3 BUN/Creatinine Ratio 7.8 (10-20) Calcium Level 10.2 mg/dl (8.5-10.1) Total Bilirubin 0.8 mg/dl (0.2-1) Direct Bilirubin 0.2 mg/dl (0-0.2) Aspartate Amino Transf (AST/SGOT) 23 U/L (15-37) Alanine Aminotransferase (ALT/SGPT) 31 U/L (12-78) Alkaline Phosphatase 173 U/L (45-117) Total Creatine Kinase 42 U/L (39-308) Creatine Kinase MB < 0.5 ng/ml (0.5-3.6) Creatine Kinase MB Ratio (0-3.0) Troponin I < 0.015 ng/ml (0-0.045) Total Protein 8.8 gm/dl (6.4-8.2) Albumin 3.6 gm/dl (3.4-5.0) Lipase 330 U/L (73-393) Urine Color DK YELLOW Urine Appearance CLOUDY (CLEAR) Urine pH 5.0 (4.5-7.5) Urine Specific [place] 1.023 (1.000-1.030) Urine Protein 2+ (NEG) Urine Glucose (UA) NEG (NEG) Urine Ketones TRACE (NEG) Urine Occult Blood 2+ (NEG) Urine Nitrite NEG (NEG) Urine Bilirubin NEG (NEG) Urine Urobilinogen NEG (NEG) Urine Leukocyte Esterase SMALL (NEG) Urine WBC (Auto) >30 /hpf (0-5) Urine RBC (Auto) 5-10 /hpf (0-4) Urine Hyaline Casts (Auto) 1-5 /lpf (0-5) Urine Epithelial Cells (Auto) >30 /lpf (0-5) Urine Bacteria (Auto) 4+ (NEG) Urine Pathogenic Casts /lpf (0) Date/Time Source Procedure Growth Status 05/03/17 11:33 Stool C.difficile Toxin B Gene (PCR) - Final Positive for C. difficile toxin B gene Complete Labs reviewed by ED physician. Medications Administered Medications (Trade) Dose Ordered Sig/Tisha Route Start Time Stop Time Status Last Admin Dose Admin Sodium Chloride 1,000 ml @ 999 mls/hr Q1H1M STAT IV 05/03/17 10:14 05/03/17 11:14 DC 05/03/17 10:25 999 MLS/HR Ketorolac Tromethamine (Toradol Inj) 30 mg NOW STAT IV 05/03/17 10:14 05/03/17 10:19 DC 05/03/17 10:27 30 MG Hydromorphone HCl (Dilaudid Inj) 1 mg NOW STAT IV 05/03/17 10:14 05/03/17 10:19 DC 05/03/17 10:28 1 MG Metoclopramide HCl (Reglan Inj) 10 mg NOW STAT IV 05/03/17 10:14 05/03/17 10:19 DC 05/03/17 10:25 10 MG Sodium Chloride 1,000 ml @ 999 mls/hr Q1H1M STAT IV 05/03/17 11:02 05/03/17 12:02 DC 05/03/17 11:08 999 MLS/HR Hydrocortisone Sodium Succinate (Solu-Cortef IV) 100 mg NOW STAT IV 05/03/17 11:02 05/03/17 11:05 DC 05/03/17 11:14 100 MG Piperacillin Sod/ Tazobactam Sod (Zosyn Iv) 4.5 gm NOW STAT IV 05/03/17 11:02 05/03/17 11:05 DC 05/03/17 11:14 4.5 GM Daptomycin 438 mg/ Sodium Chloride 58.76 ml @ 100 mls/hr NOW STAT IV 05/03/17 11:02 05/03/17 11:37 DC 05/03/17 12:21 100 MLS/HR Sodium Chloride 196 ml @ 999 mls/hr Q12M STAT IV 05/03/17 11:05 05/03/17 11:16 DC 05/03/17 11:13 999 MLS/HR Nicotine (Nicoderm Cq 21MG Patch) 1 patch NOW STAT TD 05/03/17 11:54 05/03/17 11:55 DC 05/03/17 12:00 1 PATCH Morphine Sulfate (MoRPHine SULFATE INJ) 2 mg STK-MED ONCE .ROUTE 05/03/17 12:38 05/03/17 12:39 DC 05/03/17 12:48 2 MG ECG Indication: abdominal pain Rate (beats per minute): 71 Rhythm: normal sinus Findings: no acute ischemic change, no ectopy ED Course 1009: Past medical records reviewed. The patient was evaluated in room B2. A complete history and physical examination was performed. 1038: Nursing informed me the patients Creatinine is 3.4. I will change his CT scan to be without contrast. 1014: Reglan 10 mg IV, Dilaudid 1 mg IV, Toradol 30 mg IV, NSS 1000 ml @ 999 mls /hr IV. 1102: Daptomycin 438 mg/NSS 58.76 ml @ 100 mls/hr IV, Zosyn 4.5 gm IV, Solu- Cortef 100 mg IV, NSS 1000 ml @ 999 mls/hr IV. 1105: NSS 196 ml @ 999 mls/hr IV. 1110: I reevaluated the patient. I discussed my recommendation that he remain in the hospital for further evaluation and management and he verbalized complete understanding and agreement. 1119: I discussed the patients case with Dr. Mosquera, [facility]. The patient will be further evaluated. Medical Decision Medication Reconciliation: I attest that I have personally reviewed the patient' s current medication list Blood Pressure Screening: Patient was found to have normal blood pressure on screening and does not require follow up. Prior records/ancillary studies reviewed. Triage Nursing notes reviewed. The patient's history was concerning for abdominal pain. Differential diagnosis: Etiologies such as appendicitis, diverticulitis, PUD, biliary pathology, UTI, pancreatitis, obstruction, mesenteric ischemia, aortic pathology, infections, inflammatory bowel disease, renal colic, as well as others were entertained. This is a 62-year-old male who was recently discharged from Hospital and comes into the emergency department complaining of hypotension and severe abdominal pain. The patient is septic therefore he was started on normal saline bolus 30ml/kg. he was pancultured up. Because the patient is chronically on steroids he was given 100 of Solu-Cortef. In addition he received daptomycin as well as Zosyn. His CAT scan is concerning for diverticulitis. He is in acute renal failure. I did discuss the case with the hospitalist service who agreed to admit the patient. Patient family were in agreement with the treatment plan. Consults Time Called: 1117 Consulting Physician: [facility] Returned Call: [phone] I discussed the patients case with Macario Sawant [facility]. The patient will be further evaluated. Impression Primary Impression: Sepsis Additional Impression: Abdominal pain Critical Care I have personally spent greater than 30 minutes of critical care time in the direct management of this patient. This includes bedside care, interpretation of diagnostic studies, and testing, discussion with consultants, patient, and family members, and other required patient management activities. This 30 minutes is in excess of all separately billable procedures. Scribe Attestation The scribe's documentation has been prepared under my direction and personally reviewed by me in its entirety. I confirm that the note above accurately reflects all work, treatment, procedures, and medical decision making performed by me. Departure Information Dispostion Being Evaluated By Hospitalist Referrals Tony Lin D.O. (PCP) Problem Qualifiers Primary Impression: Sepsis Sepsis type: sepsis due to unspecified organism Qualified Codes: A41.9 - Sepsis, unspecified organism Additional Impression: Abdominal pain Abdominal location: generalized Qualified Codes: R10.84 - Generalized abdominal pain
[2017-05-03] MEDS ORDERED: OPTIRAY 320 IV PRN (10:30)
[2017-05-03 10:36] LABS: ALT/SGPT 31 U/L (12-78); BLOOD UREA NITROGEN 26 mg/dl (7-18); BUN/CREATININE RATIO 7.8 (10-20); CARBON DIOXIDE 17 mmol/L (21-32); CHLORIDE 104 mmol/L (98-107); GLUCOSE 191 mg/dl (70-99); POTASSIUM 4.9 mmol/L (3.5-5.1); SODIUM 134 mmol/L (136-145)
[2017-05-03 10:41] LABS: ALKALINE PHOSPHATASE 173 U/L (45-117); AST/SGOT 23 U/L (15-37)
[2017-05-03] MEDS ORDERED: FERR1TAB62 PO (10:45)
[2017-05-03] MEDS ORDERED: DIPH-416 PO (10:45)
[2017-05-03 10:46] LABS: CALCIUM 10.2 mg/dl (8.5-10.1)
[2017-05-03 10:48] LABS: BASO % 0.3 %; BASO ABS # 0.05 K/uL (0-0.2); COMPLETE YES; EOS % 1.6 %; HEMATOCRIT 55.2 % (42-52); IG% 1.6 %; LYMPH % 23.6 %; MEAN CELL VOLUME 90.3 fL (80-100); MEAN CORPUSCULAR HEMOGLOBIN 28.5 pg (25-34); MEAN CORPUSCULAR HGB CONC 31.5 g/dl (32-36); MONO % 6.7 %; NEUT % 66.2 %; PLATELET COUNT 491 K/uL (130-400); RED BLOOD COUNT 6.11 M/uL (4.7-6.1); WHITE BLOOD COUNT 18.19 K/uL (4.8-10.8)
--- NOTE | 2017-05-03 10:58 | DIAGNOSTIC IMAGING REPORT ---
CHEST ONE VIEW PORTABLE CLINICAL HISTORY: Shortness of breath. Abdominal pain. COMPARISON STUDY: No previous studies for comparison. FINDINGS: The cardiac and mediastinal contours are normal. There is no evidence of focal pulmonary consolidation. There is no evidence of failure. No pleural effusions are visualized.[ No free intraperitoneal air is visualized. IMPRESSION: No active disease in the chest. Electronically signed by: Oliverio Crawford M.D. 05/03/2017 10:56 AM Dictated Date/Time: 05/03/2017 10:56 AM
[2017-05-03] MEDS ORDERED: PIPERACILLIN/TAZOBACTAM 4.5 GM/100ML D5W IV STA (11:02)
[2017-05-03] MEDS ORDERED: DAPTOMYCIN IV STA (11:02)
[2017-05-03] MEDS ORDERED: HYDROCORTISONE SOD SUCCINATE 100 MG/2 ML VIAL IV STA (11:02)
[2017-05-03] MEDS ORDERED: SODIUM CHLORIDE 0.9% IV STA ×2 (11:02→11:05)
--- NOTE | 2017-05-03 11:15 | DIAGNOSTIC IMAGING REPORT ---
CT SCAN OF THE ABDOMEN AND PELVIS WITHOUT CONTRAST CLINICAL HISTORY: Diffuse abdominal pain, nausea, vomiting, diarrhea. COMPARISON STUDY: 04/20/2017 TECHNIQUE: CT scan of the abdomen and pelvis was performed from the lung bases to the proximal femurs. Images are reviewed in the axial, sagittal, and coronal planes. IV contrast was not administered for this examination. CT DOSE: 515.13 mGy.cm FINDINGS: Lower chest: The heart is normal in size and configuration, without pericardial effusion. The lung bases and pleural spaces are clear. Liver: The unenhanced liver is normal in size, contour, and attenuation. There is no intrahepatic biliary ductal dilatation. Gallbladder: Unremarkable. Spleen: Normal in size and attenuation. Pancreas: Unremarkable. Adrenal glands: Unremarkable. Kidneys: There is a 17 mm right renal cyst. No renal calculi are visualized. There is no hydronephrosis. No ureteral or bladder calculi are visualized. Bowel: There are fluid-filled colonic and small bowel loops. There are scattered air-fluid levels. There are no transition zones indicate bowel obstruction. The appendix appears normal. There is mild infiltration of the mesenteric fat within the right lower quadrant. There is adjacent jejunal diverticulum. A nonspecific, the findings could be secondary to a mild ileal diverticulitis. Peritoneum: There is no intraperitoneal free air or abdominal ascites. Vasculature: There is mild ectasia of the abdominal aorta which measures 25 mm in maximal diameter. Adenopathy: None. Pelvic viscera: There is bladder wall thickening. 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 IMPRESSION: 1. No renal, ureteral, or bladder calculi identified 2. No evidence of bowel obstruction. No evidence of free air 3. Bladder wall thickening. Clinical correlation in regards to a cystitis is recommended 4. Subtle infiltration of the mesenteric fat within the right lower quadrant. This is a nonspecific finding which may be secondary to a subtle ileal diverticulitis 5. Normal appendix Electronically signed by: Oliverio Crawford M.D. 05/03/2017 11:14 AM Dictated Date/Time: 05/03/2017 11:02 AM
[2017-05-03 11:53] LABS: URINE APPEARANCE CLOUDY (CLEAR); URINE COLOR DK YELLOW; URINE EPITHELIAL CELL AUTO >30 /lpf (0-5); URINE NITRITE NEG (NEG); URINE SPECIFIC GRAVITY 1.023 (1.000-1.030); UROBILINOGEN NEG (NEG)
[2017-05-03] MEDS ORDERED: NICOTINE 21 MG/24 HR TDSY TD STA (11:54)
[2017-05-03 11:58] LABS: MANUAL MICROSCOPIC REQUIRED? NO; REVIEW REQ? YES; URINE BILIRUBIN NEG (NEG)
[2017-05-03] MEDS ORDERED: MoRPHine SULFATE 2 MG/ML CARP IV PRN (12:30)
[2017-05-03] MEDS ORDERED: MoRPHine SULFATE 2 MG/ML CARP ONE (12:38)
[2017-05-03] MEDS ORDERED: NYSS5 PO (12:45)
[2017-05-03] MEDS ORDERED: MAGN64TA4 PO (12:46)
[2017-05-03] MEDS ORDERED: hydrOXYzine HCL 25 MG TAB PO PRN (13:00)
[2017-05-03] MEDS ORDERED: GLUCOSE 10 TABS/TUBE PO PRN (13:00)
[2017-05-03] MEDS ORDERED: ALPRAZOLAM 0.5 MG TAB PO PRN (13:00)
[2017-05-03] MEDS ORDERED: GLUCAGON FOR INJ 1 MG VIAL SQ PRN (13:00)
[2017-05-03] MEDS ORDERED: DEXTROSE 50% 50 ML SYR IV PRN (13:00)
[2017-05-03] MEDS ORDERED: GLUCOSE 40% GEL 15 GM TUBE PO PRN (13:00)
[2017-05-03] MEDS ORDERED: ONDANSETRON INJ 2 MG/ML 2 ML VIAL IV PRN (13:30)
[2017-05-03] MEDS ORDERED: PHARMACY GLYCEMIC MGMT CONSULT PRN (14:26)
--- NOTE | 2017-05-03 14:42 | Pharmacy Progress Note ---
Glycemic Control Intl Consult Date of Service May 03, 2017. Scope Glycemic Pharmacist consulted by Dr Mosquera on 05/03/17 for glycemic control and to write orders per [facility] inpatient glycemic control protocol Objective Weight (Kilograms): 73.200 Accuchecks BSG (last 24hrs): Test 05/03/17 09:25 Random Glucose 191 mg/dl (70-99) Laboratory Data (last 24hrs) Test 05/03/17 09:25 Anion Gap 13.0 mmol/L BUN/Creatinine Ratio 7.8 Blood Urea Nitrogen 26 mg/dl Creatinine 3.40 mg/dl Potassium Level 4.9 mmol/L Sodium Level 134 mmol/L White Blood Count 18.19 K/uL Red Blood Count 6.11 M/uL Hemoglobin 17.4 g/dL Hematocrit 55.2 % Mean Corpuscular Volume 90.3 fL Mean Corpuscular Hemoglobin 28.5 pg Mean Corpuscular Hemoglobin Concent 31.5 g/dl Platelet Count 491 K/uL Mean Platelet Volume 11.0 fL Neutrophils (%) (Auto) 66.2 % Lymphocytes (%) (Auto) 23.6 % Monocytes (%) (Auto) 6.7 % Eosinophils (%) (Auto) 1.6 % Basophils (%) (Auto) 0.3 % Neutrophils # (Auto) 12.04 K/uL Lymphocytes # (Auto) 4.30 K/uL Monocytes # (Auto) 1.21 K/uL Eosinophils # (Auto) 0.29 K/uL Basophils # (Auto) 0.05 K/uL Recent Pertinent Medications Outpatient Anti-diabetic Regimen: * Lantus * 10-20 units SQ q PM as directed * Humalog * sliding scale * A1c = 7 % 02/20/17 The patient is currently receiving: * Basal insulin: * Lantus 10 units every 24 hours in the evening * Bolus Insulin: * NovoLog SQ ACHS - Goal Range: Low 140 mg/dL - High 180 mg/dL - Correction Factor: 60 mg/dL/unit - Carb ratio of 1 unit per 20 grams CHO consumed Risk Factors for Insulin Resistance: * Steroids: Hydrocortisone 100mg IV x1 dose in ED, then home dose of hydrocortisone PO resumed tomorrow AM * Infection: Pyelonephritis (Cubicin and Zosyn given in ED), C. difficile ( Flagyl IV) * Diet: NPO Assessment & Plan ASSESSMENT: * ADA & AACE recommend a goal blood sugar range 140-180 mg/dl for the majority of critically ill & non-critically ill patients. However, more stringent targets may be selected in individual cases. Will lower Mr. Urbina' goal range as he enjoys good glycemic control as an outpatient and is also on steroids which may cause BSGs to increase acutely. * Mr Urbina is a 62 y/o type 2 diabetic male who is known to the glycemic consult service (most recent admission in February 2017) * During hospital admission, Mr. Urbina requires very little insulin (<10 units per day) - will resume the insulin regimen that was utilized during the past admission which is more conservative than his home regimen. * A1c is current * BSG on admission elevated, however this is a random and could represent a postprandial value * CRISTIAN on admission (b/l SCr ~ 0.9mg/dL) may alter pharmacodynamics of insulin further increasing Mr. Urbina' insulin sensitivity PLAN FOR INPATIENT GLYCEMIC CONTROL: * Basal insulin: * Only give Lantus if BSG above 140mg/dL (5 units) * Bolus insulin * NovoLog SQ AC and HS - Correction factor: 40mg/dL/unit - Carb ratio: 1 unit per 20g of CHO consumed - Goal: 100-140mg/dL * A1c - current * Please note that the plan above was derived based on current level of insulin resistance and hospital stress. These recommendations are appropriate for inpatient admission only. Plan of care upon discharge will need to be reassessed to avoid potential outpatient hypo/hyperglycemia. Thank you.
[2017-05-03] MEDS ORDERED: PIPERACILL/TAZOBAC CONSULT ACTIVE PRN (15:30)
[2017-05-03 15:53] LABS: BLOOD UREA NITROGEN 28 mg/dl (7-18); BUN/CREATININE RATIO 9.5 (10-20); CALCIUM 7.8 mg/dl (8.5-10.1); CARBON DIOXIDE 20 mmol/L (21-32); CHLORIDE 111 mmol/L (98-107); GLUCOSE 200 mg/dl (70-99); POTASSIUM 5.3 mmol/L (3.5-5.1); SODIUM 141 mmol/L (136-145)
[2017-05-03] MEDS: NYSTATIN SUSP 500,000 U/5 ML UDC PO SCH ×3 (15:54→20:38)
[2017-05-03] MEDS: METRONIDAZOLE / NSS 500 MG in PREMIXED NSS 100 ML IV SCH ×2 (15:54→23:35)
[2017-05-03] MEDS: PIPERACILL/TAZOBAC IV 3.375 GM in DEXTROSE 5% 100ML 100 ML IV SCH ×2 (15:54→23:35)
[2017-05-03] MEDS: BREO ELLIPTA: ORDER AWAITING ACTION SCH ×2 (15:57→23:36)
[2017-05-03] MEDS ORDERED: INSULIN ASPART 100 UNITS/ML 3 ML PEN SC SCH ×2 (16:00→18:00)
[2017-05-03] MEDS: ALBUT/IPRATROP 3MG/0.5MG NEB 3 ML VIAL INH SCH ×2 (16:00→19:34)
--- NOTE | 2017-05-03 17:49 | History and Physical ---
History & Physical Date & Time of Service: May 03, 2017 at 13:33 Chief Complaint: Abd Pain Primary Care Physician: Tony Lin D.O. History of Present Illness Source: patient, partner, clinic records, hospital records 62 year old male with PMH of DM, HTN, UC, Adrenal insuff, CAD and recently discharged for pyelonephritis and treated with Levaquin on 04/21/17 presents to the Emergency Room with complaints of persistent abdominal pain that started yesterday. Patient said that the abd pain is worsening and yesterday he had multiple episodes of watery diarrhea and vomiting. Pt said that he could not keep anything on his stomach. his last episodes of diarrhea was this morning. He said that he feels weak. Pt said that the pain is located across the lower abdomen, dull ache like pain, travel across the abdomen, grade 9/10. Pt said that this abdominal pain is different than his UC flares up that usually in the left lower quadrant. He said that the last time he was admitted for the UC flares was on 02/19/17 at [facility]. He follows with Gastro Dr. Keith. 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 He also complaint of mid sternum chest pain, non radiated, no diaphoresis. He said that he has acid problem. Recently travel to [place] and [place] in the last month. His SBP dropped in the 70 in the ER and was given 2L NS. Currently his VS stable. He denies any fever, palpitation, dizziness, palpitation and SOB. Past Medical/Surgical History Medical Problems: (1) Adrenal insufficiency Status: Chronic (2) ARF (acute renal failure) Status: Resolved (3) Diabetes Status: Chronic (4) Hypercholesteremia Status: Chronic (5) Hypertension Status: Chronic Surgical Problems: (1) H/O percutaneous transluminal coronary angioplasty Status: Resolved (2) Stented coronary artery Status: Resolved Family History Cancer Diabetes mellitus Heart disease Hypertension Social History Smoking Status: Current Every Day Smoker Drug Use: none Marital Status: Housing status: lives alone Occupational Status: retired Immunizations History of Influenza Vaccine: Yes Influenza Vaccine Date: Aug 20, 2013 History of Tetanus Vaccine?: Yes Tetanus Immunization Date: Aug 20, 2013 History of Pneumococcal: Yes History of Hepatitis B Vaccine: No Allergies Coded Allergies: Azathioprine (Verified Adverse Reaction, Unknown, RENAL COMPLICATIONS, 10/09) Home Medications Scheduled Aspirin (Aspirin Chewable), 81 MG PO QAM Atorvastatin (Lipitor), 1 TAB PO DAILY Cholestyramine (Questran), 4 GM PO QID Diphenoxylate/Atropine (Lomotil), 1 TAB PO TID Ferrous Sulfate (Ferrous Sulfate), 1 TAB PO DAILY Fluoxetine Hcl (Prozac), 1 CAP PO QAM Fluticasone Furoate-Vilanterol (Breo Ellipta), 1 INHA PO DAILY Hydrocortisone (Cortef), 20 MG PO QAM Hydrocortisone (Cortef), 10 TAB PO UD Insulin Glargine (Lantus), 10-20 UNITS SC UD Insulin Lispro (Human) (Humalog), SC UD Isosorbide Mononitrate Ext Rel (Imdur Ext Rel), 60 MG PO QAM Lisinopril (Zestril), 5 MG PO QAM Magnesium Chloride (Mag64), 8 TABS PO BID Metoprolol Tartrate (Lopressor) (Lopressor), 100 MG PO BID Mirtazapine Soltab (Remeron Soltab), 30 MG PO HS Nystatin (Nystatin), 5 ML PO QID Potassium Chloride Microencaps (Potassium Chloride Er), 1 TAB PO DAILY Ranitidine Hcl (Zantac), 150 MG PO BID Tiotropium [place] (Spiriva Handihaler), 1 CAP INH DAILY Scheduled PRN Albuterol Hfa (Ventolin Hfa), 3-4 PUFFS INH QID PRN for sob/wheezing Alprazolam (Xanax), 0.5 MG PO HS PRN for Sleep Dexamethasone Sod Phos (Dexamethasone Sodium Phos), 1 ML IM DIRECTED PRN for emergency treatment Fluconazole (Diflucan), 100 MG PO DAILY PRN for THRUSH Hydroxyzine HCl (Hydroxyzine HCl), 50 MG PO HSZ PRN for Anxiety/Insomnia Ipratropium-Albuterol (Duoneb), 1 TREATMENT INH QID PRN for sob/wheezing Review of Systems Constitutional: + weakness, No fever, No chills Eyes: No eye pain, No redness ENT: No hearing loss, No nasal symptoms, No sore throat Respiratory: No cough, No sputum, No wheezing, No shortness of breath Cardiovascular: + chest pain, No orthopnea, No claudication, No palpitations Abdomen: + pain, + nausea, + vomiting, + diarrhea Musculoskeletal: No calf pain Genitourinary - Male: No dysuria, No urinary frequency Neurologic: No paralysis Psychiatric: No substance abuse Endocrine: + fatigue, No excessive thirst Hematologic / Lymphatic: No night sweats Integumentary: No rash, No itch Physical Exam Vital Signs Date Time Temp Pulse Resp B/P (MAP) Pulse Ox O2 Delivery O2 Flow Rate FiO2 05/03/17 12:47 61 15 107/63 98 05/03/17 12:22 68 16 103/69 100 Room Air 05/03/17 12:15 98 Room Air 05/03/17 11:47 68 17 104/59 98 Room Air 05/03/17 11:19 69 16 106/63 98 Room Air 05/03/17 11:09 67 20 76/52 97 Room Air 05/03/17 10:10 73 05/03/17 10:09 36.4 78 20 105/61 98 Room Air General Appearance: WD/WN, no apparent distress Head: normocephalic, atraumatic Eyes: normal inspection, PERRL, EOMI ENT: hearing grossly normal Neck: supple, no JVD Respiratory/Chest: lungs clear, no respiratory distress, no accessory muscle use Cardiovascular: regular rate, rhythm, no JVD, no murmur Abdomen/GI: + tenderness, + pertinent finding (hyperactive BS, tenderness across lower abdomen) Back: no CVA tenderness Extremities/Musculoskelatal: no calf tenderness Neurologic/Psych: no motor/sensory deficits, alert, normal mood/affect, oriented x 3 Skin: warm/dry, no rash Diagnostics Laboratory Results Results Past 24 Hours Test 05/03/17 09:25 05/03/17 11:33 05/03/17 12:27 Range/Units White Blood Count 18.19 4.8-10.8 K/uL Red Blood Count 6.11 4.7-6.1 M/uL Hemoglobin 17.4 14.0-18.0 g/dL Hematocrit 55.2 42-52 % Mean Corpuscular Volume 90.3 80-100 fL Mean Corpuscular Hemoglobin 28.5 25-34 pg Mean Corpuscular Hemoglobin Concent 31.5 32-36 g/dl Platelet Count 491 130-400 K/uL Mean Platelet Volume 11.0 7.4-10.4 fL Neutrophils (%) (Auto) 66.2 % Lymphocytes (%) (Auto) 23.6 % Monocytes (%) (Auto) 6.7 % Eosinophils (%) (Auto) 1.6 % Basophils (%) (Auto) 0.3 % Neutrophils # (Auto) 12.04 1.4-6.5 K/uL Lymphocytes # (Auto) 4.30 1.2-3.4 K/uL Monocytes # (Auto) 1.21 0.11-0.59 K/uL Eosinophils # (Auto) 0.29 0-0.5 K/uL Basophils # (Auto) 0.05 0-0.2 K/uL RDW Standard Deviation 49.3 36.4-46.3 fL RDW Coefficient of Variation 14.8 11.5-14.5 % Immature Granulocyte % (Auto) 1.6 % Immature Granulocyte # (Auto) 0.30 0.00-0.02 K/uL Sodium Level 134 136-145 mmol/L Potassium Level 4.9 3.5-5.1 mmol/L Chloride Level 104 98-107 mmol/L Carbon Dioxide Level 17 21-32 mmol/L Anion Gap 13.0 3-11 mmol/L Blood Urea Nitrogen 26 7-18 mg/dl Creatinine 3.40 0.60-1.40 mg/dl Est Creatinine Clear Calc Drug Dose 23.3 ml/min Estimated GFR () 21.2 Estimated GFR (Non- 18.3 BUN/Creatinine Ratio 7.8 10-20 Random Glucose 191 70-99 mg/dl Calcium Level 10.2 8.5-10.1 mg/dl Total Bilirubin 0.8 0.2-1 mg/dl Direct Bilirubin 0.2 0-0.2 mg/dl Aspartate Amino Transf (AST/SGOT) 23 15-37 U/L Alanine Aminotransferase (ALT/SGPT) 31 12-78 U/L Alkaline Phosphatase 173 45-117 U/L Total Creatine Kinase 42 39-308 U/L Creatine Kinase MB < 0.5 0.5-3.6 ng/ml Creatine Kinase MB Ratio 0-3.0 Troponin I < 0.015 0-0.045 ng/ml Total Protein 8.8 6.4-8.2 gm/dl Albumin 3.6 3.4-5.0 gm/dl Lipase 330 73-393 U/L Urine Color DK YELLOW Urine Appearance CLOUDY CLEAR Urine pH 5.0 4.5-7.5 Urine Specific [place] 1.023 1.000-1.030 Urine Protein 2+ NEG Urine Glucose (UA) NEG NEG Urine Ketones TRACE NEG Urine Occult Blood 2+ NEG Urine Nitrite NEG NEG Urine Bilirubin NEG NEG Urine Urobilinogen NEG NEG Urine Leukocyte Esterase SMALL NEG Urine WBC (Auto) >30 0-5 /hpf Urine RBC (Auto) 5-10 0-4 /hpf Urine Hyaline Casts (Auto) 1-5 0-5 /lpf Urine Epithelial Cells (Auto) >30 0-5 /lpf Urine Bacteria (Auto) 4+ NEG Urine Pathogenic Casts 0 /lpf Microbiology Results 05/03/17 Blood Culture, Received Pending 05/03/17 Blood Culture, Received Pending 05/03/17 C.difficile Toxin B Gene (PCR) - Final, Complete Positive for C. difficile toxin B gene 05/03/17 Shiga Toxin Test, Received Pending 05/03/17 Stool Culture, Received Pending 05/03/17 Urine Culture, Received Pending Diagnostic Radiology CT SCAN OF THE ABDOMEN AND PELVIS WITHOUT CONTRAST CLINICAL HISTORY: Diffuse abdominal pain, nausea, vomiting, diarrhea. COMPARISON STUDY: 04/20/2017 TECHNIQUE: CT scan of the abdomen and pelvis was performed from the lung bases to the proximal femurs. Images are reviewed in the axial, sagittal, and coronal planes. IV contrast was not administered for this examination. CT DOSE: 515.13 mGy.cm FINDINGS: Lower chest: The heart is normal in size and configuration, without pericardial effusion. The lung bases and pleural spaces are clear. Liver: The unenhanced liver is normal in size, contour, and attenuation. There is no intrahepatic biliary ductal dilatation. Gallbladder: Unremarkable. Spleen: Normal in size and attenuation. Pancreas: Unremarkable. Adrenal glands: Unremarkable. Kidneys: There is a 17 mm right renal cyst. No renal calculi are visualized. There is no hydronephrosis. No ureteral or bladder calculi are visualized. Bowel: There are fluid-filled colonic and small bowel loops. There are scattered air-fluid levels. There are no transition zones indicate bowel obstruction. The appendix appears normal. There is mild infiltration of the mesenteric fat within the right lower quadrant. There is adjacent jejunal diverticulum. A nonspecific, the findings could be secondary to a mild ileal diverticulitis. Peritoneum: There is no intraperitoneal free air or abdominal ascites. Vasculature: There is mild ectasia of the abdominal aorta which measures 25 mm in maximal diameter. Adenopathy: None. Pelvic viscera: There is bladder wall thickening. 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 IMPRESSION: 1. No renal, ureteral, or bladder calculi identified 2. No evidence of bowel obstruction. No evidence of free air 3. Bladder wall thickening. Clinical correlation in regards to a cystitis is recommended 4. Subtle infiltration of the mesenteric fat within the right lower quadrant. This is a nonspecific finding which may be secondary to a subtle ileal diverticulitis 5. Normal appendix Electronically signed by: Oliverio Crawford M.D. 05/03/2017 11:14 AM Dictated Date/Time: 05/03/2017 11:02 AM CHEST ONE VIEW PORTABLE CLINICAL HISTORY: Shortness of breath. Abdominal pain. COMPARISON STUDY: No previous studies for comparison. FINDINGS: The cardiac and mediastinal contours are normal. There is no evidence of focal pulmonary consolidation. There is no evidence of failure. No pleural effusions are visualized.[ No free intraperitoneal air is visualized. IMPRESSION: No active disease in the chest. Electronically signed by: Oliverio Crawford M.D. 05/03/2017 10:56 AM Dictated Date/Time: 05/03/2017 10:56 AM Impression Assessment and Plan 61 year old male with history of Ulcerative Colitis, Chronic Intermittent Prednisone Use, Adrenal Insufficiency, CAD, DM 2 on Insulin, HTN, COPD, presenting with persistent abdominal pain associated with diarrhea and vomiting. ABDOMINAL PAIN/DIARRHEA/ VOMITING possible related to ulcerative colitis flared up vs diverticuliti vs CDiff Recently completed 10 days course of Levaquin about [address] abd/pelvis showed subtle infiltration of the mesenteric fat within the right lower quadrant that is non specific for ileal diverticulitis Elevated WBC Received Dapto abd Zosyn in the ER check stool cultures and stool for C diff Continue IV fluid Pain control with morphine Keep NPO for now for bowel rest Monitor electrolytes Will continue Zosyn and de-escalate tomorrow Will start on clear liquid diet once symptoms improve will consult GI ACUTE KIDNEY INJURY Mostly related to dehydration due to Nausea/Vomiting and poor oral intake Creatine on admission 3.4 Creatine was 1.2 on discharge 04/21 Received 2L NS in the ER will continue NS at 100ml/hr hold lisinopril monitor BMP Avoid nephrotoxic agents MILD ELEVATED AG possible related to the above AG on admission 13 No need to start insulin drip It should be closed with IVF Repeat BMP in 6hrs Continue IVF HYPOTENSION Mostly due to dehydration from GI loss will need to r/o sepsis Afebrile, elevated WBC check lactic, urine cx, blood cx BP normalized after 2L NS Continue IVF Hold BP Med Continue monitor BP CHEST PAIN Atypical presentation Possible related to Acid hx of of CAD with MIx2 need to R/O ACS 1st troponin negative EKG showed no significant ischemic changes Follow serial CM Recent EGD on was normal Will monitor in telemetry UC Follow with Dr. Keith last flare up was on 02/19/17 Recent colonoscopy on 02/20/17: - Erythematous and granular mucosa in the entire colon. - Diverticulosis in the sigmoid colon. ADRENAL INSUFFICIENCY likely from chronic intermittent prednisone courses Low BP continue usual Hydrocortisone 20mg in am, 10mg in PM HISTORY OF CAD complaint of atypical chest pain monitor serial CM continue Aspirin, statin Metoprolol on hold due to low BP DM 2 Recent HBA1c 7 % on 02/20/17 on Lantus 20 units at home, will reduced dose to 10 units daily Insulin coverage Pharm consult for glycemic management HTN Hold Metoprolol, Lisinopril, and Imdur continue monitor BP COPD not in exacerbation continue Spiriva, Breo PRN DuoNeb TOBACCO ABUSE Counseling on smoking cessation Nicotine Patch DVT px will do SCDs since pt hx UC with bloody diarrhea in the past. DISPOSITION anticipate to d/c home when medically stable CODE STATUS FULL CODE Level of Care Telemetry Advanced Directives Existing Living Will: No Existing Power of Faculty Neuropsychologist: No Resuscitation Status FULL RESUSCITATION VTE Prophylaxis VTE Risk Assessment Done? Y/N: Yes Risk Level: Moderate Given or contraindicated: SCD's Additional Copies To Tony Lin D.O.
[2017-05-03] MEDS: SODIUM CHLORIDE 0.9% 1000ML 1,000 ML IV SCH (19:00)
[2017-05-03] MEDS: CHOLESTYRAMINE LIGHT 4 GM PKT PO SCH ×2 (19:01→21:03)
[2017-05-03] MEDS: HYDROmorphone INJ 1 MG/ML SYR IV PRN ×2 (20:32→23:34)
[2017-05-03] MEDS: HYDROCORTISONE 10 MG TAB PO SCH (20:36)
[2017-05-03] MEDS: MIRTAZAPINE SOLTAB 15 MG PO SCH (20:36)
[2017-05-03] MEDS ORDERED: INSULIN GLARGINE SOLOSTAR 100 UNITS/ML 3 ML PEN SC SCH (21:00)
[2017-05-03] MEDS ORDERED: NURSING VERBAL MED ORDER ONE (21:00)
[2017-05-03] MEDS: INSULIN ASPART 100 UNITS/ML 3 ML PEN SC SCH (21:02)
[2017-05-03] MEDS ORDERED: HEPARIN SOD 5000 UNIT/0.5 ML CARP SQ SCH (22:00)
[2017-05-04] VITALS (9 sets, daily range): BP systolic 115–140; BP diastolic 73–86; PULSE 62–93; TEMP 36.4–36.8; O2SAT 96–99
[2017-05-04] MEDS: INSULIN ASPART 100 UNITS/ML 3 ML PEN SC SCH ×6 (00:34→20:23)
[2017-05-04] MEDS: HYDROmorphone INJ 1 MG/ML SYR IV PRN ×6 (02:34→23:48)
[2017-05-04] MEDS: SODIUM CHLORIDE 0.9% 1000ML 1,000 ML IV SCH ×3 (04:27→23:49)
[2017-05-04] MEDS: ALBUT/IPRATROP 3MG/0.5MG NEB 3 ML VIAL INH SCH ×2 (07:19→11:04)
[2017-05-04 07:34] LABS: BASO % 0.1 %; BASO ABS # 0.01 K/uL (0-0.2); COMPLETE YES; EOS % 0.5 %; HEMATOCRIT 37.2 % (42-52); IG% 0.5 %; LYMPH % 12.8 %; LYMPH ABS # 1.69 K/uL (1.2-3.4); MEAN CORPUSCULAR HEMOGLOBIN 29.3 pg (25-34); MEAN CORPUSCULAR HGB CONC 32.3 g/dl (32-36); MEAN PLATELET VOLUME 10.8 fL (7.4-10.4); MONO % 6.3 %; NEUT % 79.8 %; PLATELET COUNT 258 K/uL (130-400); RED BLOOD COUNT 4.09 M/uL (4.7-6.1); WHITE BLOOD COUNT 13.23 K/uL (4.8-10.8)
[2017-05-04] MEDS: PIPERACILL/TAZOBAC IV 3.375 GM in DEXTROSE 5% 100ML 100 ML IV SCH (07:44)
[2017-05-04] MEDS: TIOTROPIUM BROMIDE 5 PUFF/90 MCG INH INH SCH (07:46)
[2017-05-04] MEDS: ATORVASTATIN 40 MG TAB PO SCH (07:47)
[2017-05-04] MEDS: ASPIRIN 81 MG ECTAB PO SCH (07:47)
[2017-05-04] MEDS: RANITIDINE HCL 150 MG TAB PO SCH (07:47)
[2017-05-04] MEDS: FLUOXETINE HCL 20 MG CAP PO SCH (07:47)
[2017-05-04] MEDS: HYDROCORTISONE 10 MG TAB PO SCH ×2 (07:48→20:16)
[2017-05-04] MEDS: NYSTATIN SUSP 500,000 U/5 ML UDC PO SCH ×4 (07:48→20:18)
[2017-05-04 07:51] LABS: BUN/CREATININE RATIO 12.4 (10-20); CALCIUM 7.7 mg/dl (8.5-10.1); CREATININE 1.9 mg/dl (0.60-1.40); MAGNESIUM 1.9 mg/dl (1.8-2.4); POTASSIUM 4.2 mmol/L (3.5-5.1)
[2017-05-04] MEDS: NICOTINE 21 MG/24 HR TDSY TD SCH (07:56)
[2017-05-04] MEDS: METRONIDAZOLE / NSS 500 MG in PREMIXED NSS 100 ML IV SCH ×3 (07:57→23:49)
[2017-05-04] MEDS ORDERED: FERROUS SULFATE 325 MG TAB PO SCH (09:00)
[2017-05-04] MEDS: BREO ELLIPTA: ORDER AWAITING ACTION SCH ×3 (09:08→23:49)
[2017-05-04] MEDS: CHOLESTYRAMINE LIGHT 4 GM PKT PO SCH ×4 (09:16→20:19)
[2017-05-04] MEDS ORDERED: CALCIUM GLUCONATE 10% 1,000 MG in SODIUM CHLORIDE 0.9% 50ML 50 ML IV ONE (09:30)
--- NOTE | 2017-05-04 11:40 | Pharmacy Progress Note ---
Glycemic Control: Progress Nt Date of Service May 04, 2017. Scope Glycemic Pharmacist consulted for glycemic control and to write orders per formerly [facility] inpatient glycemic control protocol. Objective Accuchecks BSG (last 24hrs): Test 05/03/17 15:08 05/03/17 19:12 05/04/17 03:02 05/04/17 06:44 Random Glucose 200 mg/dl (70-99) 137 mg/dl (70-99) Bedside Glucose 282 mg/dl (70-99) 220 mg/dl (70-99) Test 05/04/17 09:12 Bedside Glucose 197 mg/dl (70-99) Laboratory Data (last 24hrs) Recent Pertinent Medications Outpatient Anti-diabetic Regimen: * Lantus * 10-20 units SQ q PM as directed * Humalog * sliding scale * A1c = 7 % 02/20/17 The patient is currently receiving: * Basal insulin: * Lantus 5 units every 24 hours in the evening for BSG > 140mg/dl * Bolus Insulin: * NovoLog SQ ACHS - Goal Range: Low 100 mg/dL - High 140 mg/dL - Correction Factor: 40 mg/dL/unit - Carb ratio of 1 unit per 20 grams CHO consumed Risk Factors for Insulin Resistance: * Steroids: Hydrocortisone 100mg IV x1 dose in ED, then home dose of hydrocortisone PO resumed tomorrow AM * Infection: Pyelonephritis (Zosyn), C. difficile (Flagyl IV) * Diet: NPO --> advanced to clears today Assessment & Plan ASSESSMENT: * ADA & AACE recommend a goal blood sugar range 140-180 mg/dl for the majority of critically ill & non-critically ill patients. However, more stringent targets may be selected in individual cases. Will lower Mr. Urbina' goal range as he enjoys good glycemic control as an outpatient and is also on steroids which may cause BSGs to increase acutely. * Mr Urbina is a 62 y/o type 2 diabetic male who is known to the glycemic consult service (most recent admission in February 2017) * During hospital admission, Mr. Urbina requires very little insulin (<10 units per day) - will resume the insulin regimen that was utilized during the past admission which is more conservative than his home regimen. * Patient is currently receiving 22 units of insulin per day * 5 units of basal insulin * 17 units of prandial/correctional insulin * BSGs ranging 197 -362mg/dl over the past 24hrs * Risk for continued hyperglycemia, need for increased insulin regimen * Steroid * Infection * advancing diet --> therefore Tighten CF/CR * AM Fasting BSG = 197mg/dl therefore Basal insulin needs increased * Renal function is improving, increased insulin sensitivity is seen with CRISTIAN. BSGs may continue to deteriorate with improved Scr PLAN FOR INPATIENT GLYCEMIC CONTROL: * Basal insulin: increase dosing, continue dosing based on BSG as previous admission pt did not require basal insulin. * Lantus SQ daily with dinner based on BSG --> give first dose now and resume PM dosing 05/05 * if BSG below 140mg/dL (0 units) * if BSG 140-180mg/dL (5 units) * if BSG above 180mg/dL (10 units) * Bolus insulin: tighten parameters * NovoLog SQ AC and HS - Correction factor: 30mg/dL/unit - Carb ratio: 1 unit per 11g of CHO consumed - Goal: 110-140mg/dL * A1c - current * Please note that the plan above was derived based on current level of insulin resistance and hospital stress. These recommendations are appropriate for inpatient admission only. Plan of care upon discharge will need to be reassessed to avoid potential outpatient hypo/hyperglycemia. Thank you.
[2017-05-04] MEDS: INSULIN GLARGINE SOLOSTAR 100 UNITS/ML 3 ML PEN SC SCH (12:36)
--- NOTE | 2017-05-04 13:05 | Progress Note ---
Medicine Progress Note Date & Time of Visit: May 04, 2017 at 12:31. Subjective 61 year old male with history of Ulcerative Colitis, Chronic Intermittent Prednisone Use, Adrenal Insufficiency, CAD, DM 2 on Insulin, p/w c-diff colitis after Levaquin use last week. -tolerating clear liquid diet and is asking for something more substantial +intermittent abdominal pain in LLQ, improved with BM +liquid stools multiple still present -no fevers or chills - has chronic, recurrent C-diff -pt states he just buried his nephew in [place] a couple of weeks ago -states that he takes the Questran 2gm BID for ease -states that he just started taking iron supplementation as outpatient last week -states this is turning his stool black, however, he is colorblind and cannot see red. -emotional about his who has breast cancer in remission, as well as loss of his nephew recently. Objective Last 8 Hrs Date Time Temp Pulse Resp B/P (MAP) Pulse Ox O2 Delivery O2 Flow Rate FiO2 05/04/17 12:00 Room Air 05/04/17 11:04 90 16 98 Room Air 05/04/17 08:30 Room Air 05/04/17 07:20 84 12 96 Room Air 05/04/17 07:06 36.7 82 18 124/76 (92) 98 Room Air Physical Exam: GEN: WNWD, in no acute distress, alert and appropriate HEENT: NC/AT, normal sclerae CARDIO: reg rate, S1/2 heard without m/g/r LUNGS: CTA bilaterally, no crackles, rales or wheezes, good diaphragmatic excursion ABD: soft, TTP in LLQ and suprapubic tenderness appreciated, Non-distended, no rebound or guarding. +BS present and no CVA tenderness EXTREMITY: RP and DP palpable 2+ bilat, no LE swelling or edema, extremities are warm and well-perfused NEURO: CN 2-12 grossly intact, no gross focal deficits. MUSC: moves all extremities equally SKIN: warm and dry. some erythema noted across the face consistent with poss rosacea. Laboratory Results: 05/04/17 06:44 Red Blood Count 4.09, Mean Corpuscular Volume 91.0, Mean Corpuscular Hemoglobin 29.3, Mean Corpuscular Hemoglobin Concent 32.3, Mean Platelet Volume 10.8, Neutrophils (%) (Auto) 79.8, Lymphocytes (%) (Auto) 12.8, Monocytes (%) (Auto) 6.3, Eosinophils (%) (Auto) 0.5, Basophils (%) (Auto) 0.1, Neutrophils # (Auto) 10.57, Lymphocytes # (Auto) 1.69, Monocytes # (Auto) 0.84, Eosinophils # (Auto) 0.06, Basophils # (Auto) 0.01 05/04/17 06:44 Test 05/03/17 09:25 05/03/17 11:33 05/03/17 13:30 05/03/17 13:38 Total Bilirubin 0.8 mg/dl (0.2-1) Direct Bilirubin 0.2 mg/dl (0-0.2) Aspartate Amino Transf (AST/SGOT) 23 U/L (15-37) Alanine Aminotransferase (ALT/SGPT) 31 U/L (12-78) Alkaline Phosphatase 173 U/L (45-117) Total Creatine Kinase 42 U/L (39-308) Total Protein 8.8 gm/dl (6.4-8.2) Albumin 3.6 gm/dl (3.4-5.0) Lipase 330 U/L (73-393) Urine Color DK YELLOW Urine Appearance CLOUDY (CLEAR) Urine pH 5.0 (4.5-7.5) Urine Specific [place] 1.023 (1.000-1.030) Urine Protein 2+ (NEG) Urine Glucose (UA) NEG (NEG) Urine Ketones TRACE (NEG) Urine Occult Blood 2+ (NEG) Urine Nitrite NEG (NEG) Urine Bilirubin NEG (NEG) Urine Urobilinogen NEG (NEG) Urine Leukocyte Esterase SMALL (NEG) Urine WBC (Auto) >30 /hpf (0-5) Urine RBC (Auto) 5-10 /hpf (0-4) Urine Hyaline Casts (Auto) 1-5 /lpf (0-5) Urine Epithelial Cells (Auto) >30 /lpf (0-5) Urine Bacteria (Auto) 4+ (NEG) Urine Pathogenic Casts /lpf (0) Lactic Acid Level 1.1 mmol/L (0.4-2.0) Bedside Lactic Acid Venous 1.00 mmol/L (0.90-1.70) Test 05/03/17 20:46 05/04/17 06:44 05/04/17 11:50 Creatine Kinase MB 1.1 ng/ml (0.5-3.6) Creatine Kinase MB Ratio (0-3.0) Troponin I < 0.015 ng/ml (0-0.045) White Blood Count 13.23 K/uL (4.8-10.8) Red Blood Count 4.09 M/uL (4.7-6.1) Hemoglobin 12.0 g/dL (14.0-18.0) Hematocrit 37.2 % (42-52) Mean Corpuscular Volume 91.0 fL (80-100) Mean Corpuscular Hemoglobin 29.3 pg (25-34) Mean Corpuscular Hemoglobin Concent 32.3 g/dl (32-36) Platelet Count 258 K/uL (130-400) Mean Platelet Volume 10.8 fL (7.4-10.4) Neutrophils (%) (Auto) 79.8 % Lymphocytes (%) (Auto) 12.8 % Monocytes (%) (Auto) 6.3 % Eosinophils (%) (Auto) 0.5 % Basophils (%) (Auto) 0.1 % Neutrophils # (Auto) 10.57 K/uL (1.4-6.5) Lymphocytes # (Auto) 1.69 K/uL (1.2-3.4) Monocytes # (Auto) 0.84 K/uL (0.11-0.59) Eosinophils # (Auto) 0.06 K/uL (0-0.5) Basophils # (Auto) 0.01 K/uL (0-0.2) RDW Standard Deviation 49.0 fL (36.4-46.3) RDW Coefficient of Variation 14.6 % (11.5-14.5) Immature Granulocyte % (Auto) 0.5 % Immature Granulocyte # (Auto) 0.06 K/uL (0.00-0.02) Anion Gap 10.0 mmol/L (3-11) Est Creatinine Clear Calc Drug Dose 41.6 ml/min Estimated GFR () 42.8 Estimated GFR (Non- 37.0 BUN/Creatinine Ratio 12.4 (10-20) Calcium Level 7.7 mg/dl (8.5-10.1) Magnesium Level 1.9 mg/dl (1.8-2.4) Bedside Glucose 212 mg/dl (70-99) Date/Time Source Procedure Growth Status 05/03/17 10:42 Blood Blood Culture Pending Received 05/03/17 11:33 Stool C.difficile Toxin B Gene (PCR) - Final Positive for C. difficile toxin B gene Complete 05/03/17 11:33 Urine , Clean Catch Urine Culture - Preliminary Gram Positive Cocci Resulted Last 24 Hours Test 05/03/17 13:30 05/03/17 13:38 05/03/17 15:00 05/03/17 15:08 Lactic Acid Level 1.1 mmol/L Bedside Lactic Acid Venous 1.00 mmol/L Creatine Kinase MB Ratio Sodium Level 141 mmol/L Potassium Level 5.3 mmol/L Chloride Level 111 mmol/L Carbon Dioxide Level 20 mmol/L Anion Gap 10.0 mmol/L Blood Urea Nitrogen 28 mg/dl Creatinine 2.90 mg/dl Est Creatinine Clear Calc Drug Dose 27.3 ml/min Estimated GFR () 25.7 Estimated GFR (Non- 22.2 BUN/Creatinine Ratio 9.5 Random Glucose 200 mg/dl Calcium Level 7.8 mg/dl Creatine Kinase MB 0.7 ng/ml Troponin I < 0.015 ng/ml Test 05/03/17 19:12 05/03/17 20:46 05/04/17 03:02 05/04/17 06:44 Bedside Glucose 282 mg/dl 220 mg/dl Creatine Kinase MB 1.1 ng/ml Creatine Kinase MB Ratio Troponin I < 0.015 ng/ml White Blood Count 13.23 K/uL Red Blood Count 4.09 M/uL Hemoglobin 12.0 g/dL Hematocrit 37.2 % Mean Corpuscular Volume 91.0 fL Mean Corpuscular Hemoglobin 29.3 pg Mean Corpuscular Hemoglobin Concent 32.3 g/dl Platelet Count 258 K/uL Mean Platelet Volume 10.8 fL Neutrophils (%) (Auto) 79.8 % Lymphocytes (%) (Auto) 12.8 % Monocytes (%) (Auto) 6.3 % Eosinophils (%) (Auto) 0.5 % Basophils (%) (Auto) 0.1 % Neutrophils # (Auto) 10.57 K/uL Lymphocytes # (Auto) 1.69 K/uL Monocytes # (Auto) 0.84 K/uL Eosinophils # (Auto) 0.06 K/uL Basophils # (Auto) 0.01 K/uL RDW Standard Deviation 49.0 fL RDW Coefficient of Variation 14.6 % Immature Granulocyte % (Auto) 0.5 % Immature Granulocyte # (Auto) 0.06 K/uL Sodium Level 143 mmol/L Potassium Level 4.2 mmol/L Chloride Level 114 mmol/L Carbon Dioxide Level 19 mmol/L Anion Gap 10.0 mmol/L Blood Urea Nitrogen 23 mg/dl Creatinine 1.90 mg/dl Est Creatinine Clear Calc Drug Dose 41.6 ml/min Estimated GFR () 42.8 Estimated GFR (Non- 37.0 BUN/Creatinine Ratio 12.4 Random Glucose 137 mg/dl Calcium Level 7.7 mg/dl Magnesium Level 1.9 mg/dl Test 05/04/17 09:12 05/04/17 11:50 Bedside Glucose 197 mg/dl 212 mg/dl Assessment & Plan 61 year old male with history of Ulcerative Colitis, Chronic Intermittent Prednisone Use, Adrenal Insufficiency, CAD, DM 2 on Insulin, p/w c-diff colitis after Levaquin use last week. 1. Abdominal pain2/2 C-diff colitis: etiology includes but not limited to recent abx use in setting of prior c-diff infections and exposure to who is currently c-diff positive. Also, in the setting of UC, there may be a component of UC flare here, however, the pain with prior flares is more chronic than the discomfort he is currently experiencing. CT also revealed a poss ileal diverticulitis. LLQ persists on exam and some suprapubic tenderness, also. Will stop Zosyn, cont Flagyl and add Cipro to treat the diverticulitis. Of note, patient has bacteriuria with UCx pending; prior culture results revealed a FQ-sensitive strain. Will also add Vanc PO now that he is tolerating PO. Cont IVF another day to ensure consistent PO intake. Advance diet per patient request and instructed him to avoid milk products in setting of diarrhea. Also, he recently started iron supplementation in the last week, which may have been contributing to nausea in addition to changing the color of his stool which is not desirable in the hospital. Holding iron tabs until things are cleared up. Appreciate GI recs. 2. CRISTIAN likely 2/2 clinical dehydration 2/2 GI losses. Hemoconcentration seen on labs, and his creat has improved to 1.9 with IVF overnight. Cont IVF and hold lisinopril. 3. Atypical chest discomfort likely related to heartburn. Pt improved after taking Ranitidine this morning. With h/o CAD in the past with stent, serial cardiac enzymes were drawn and were negative. As he is improved with non- ischemic EKG, will take him off telemetry monitoring. May want to consider PPI , however, will defer to GI. 4. UC-pt takes hydrocortisone regularly to control flares and is on Questran QID for help w chronic liquid stools. Recent colonoscopy was 02/20/17 while he was hospitalized for a UC flare. 5. Acute cystitis-recently treated for bilateral pyelonephritis in the last two weeks. Presented this admission with some dysuria, and has suprapubic tenderness on exam as well as bladder wall thickening on CT scan and a positive UA. No evidence of pyelo present as he is afebrile, without CVA tenderness and there is no evidence of hydronephrosis or other pyelo findings on the CT scan performed yesterday. Cont with abx regimen as above while awaiting UCx results. 6. Chronic adrenal insufficiency-cont home dose of hydrocortisone. 7. CAD-stable, no active ACS or concerning symptoms. Cont medical management with ASA, statin, restarting Imdur which may also help with atypical chest discomfort above. Restarting Lopressor. 8. DMII: Lantus/ISS per pharmacy recs. 9. HTN-hold lisinopril in setting of CRISTIAN 10. COPD-not oxygen-dependent and is stable without wheezing on exam. Cont Duonebs PRN and Spiriva daily. Nicoderm patch to control cravings to smoke. 11. Tobacco abuse-Nicotine replacement given. 12. Iron-deficiency anemia-holding outpatient iron supplementation now. DVT proph-heparin SQ TID FULL CODE Dispo: [facility]surg [facility] Consultants: GI Current Inpatient Medications: Current Inpatient Medications Medications (Trade) Dose Ordered Sig/Tisha Route Start Time Stop Time Status Last Admin Dose Admin Alprazolam (Xanax Tab) 0.5 mg HS PRN PO 05/03/17 13:00 06/02/17 12:59 Aspirin (Ecotrin Tab) 81 mg QAM PO 05/04/17 09:00 06/03/17 08:59 05/04/17 07:47 81 MG Atorvastatin Calcium (Lipitor Tab) 80 mg DAILY PO 05/04/17 09:00 06/03/17 08:59 05/04/17 07:47 80 MG Fluoxetine HCl (Prozac Cap) 20 mg QAM PO 05/04/17 09:00 06/03/17 08:59 05/04/17 07:47 20 MG Hydrocortisone (Cortef Tab) 20 mg QAM PO 05/04/17 09:00 06/03/17 08:59 05/04/17 07:48 20 MG Hydroxyzine HCl (Vistaril Tab) 50 mg HSZ PRN PO 05/03/17 13:00 06/02/17 12:59 Nystatin (Mycostatin Susp) 5 ml QID PO 05/03/17 13:00 05/13/17 12:59 05/04/17 07:48 5 ML Ranitidine HCl (zANTac TAB) 150 mg DAILY PO 05/04/17 09:00 06/03/17 08:59 05/04/17 07:47 150 MG Tiotropium [place] (Spiriva Handihaler Inhaler) 1 puff DAILY INH 05/04/17 09:00 06/03/17 08:59 05/04/17 07:46 1 PUFF Cholestyramine Resin (Questran Powder Light) 4 gm QID@1000,1400,1800,2200 PO 05/03/17 18:00 06/02/17 17:59 05/04/17 09:16 4 GM Ferrous Sulfate (Feosol Tab) 325 mg DAILY PO 05/04/17 09:00 06/03/17 08:59 05/04/17 07:47 325 MG Miscellaneous Information (Order Awaiting Action) 1 ea QS N/A 05/03/17 16:00 06/02/17 15:59 Mirtazapine (Remeron Solutab) 30 mg HS PO 05/03/17 21:00 06/02/17 20:59 05/03/17 20:36 30 MG Albuterol/ Ipratropium (Duoneb) 3 ml QIDR INH 05/03/17 16:00 06/02/17 15:59 05/04/17 11:04 3 ML Glucose (Glucose 40% Gel) 15-30 GRAMS 15 GRAMS... UD PRN PO 05/03/17 13:00 06/02/17 12:59 Glucose (Glucose Chew Tab) 4-8 Tablets 4 Tabl... UD PRN PO 05/03/17 13:00 06/02/17 12:59 Dextrose (Dextrose 50% 50ML Syringe) 25-50ML OF 50% DW IV FOR... UD PRN IV 05/03/17 13:00 06/02/17 12:59 Glucagon (Glucagon Inj) 1 mg UD PRN SQ 05/03/17 13:00 06/02/17 12:59 Miscellaneous Information (Consult Glycemic Management Pharmacy) 1 ea UD PRN N/A 05/03/17 14:26 06/02/17 14:25 Ondansetron HCl (Zofran Inj) 4 mg Q6H PRN IV 05/03/17 13:30 06/02/17 13:29 Piperacillin Sod/ Tazobactam Sod 3.375 gm/Dextrose 115 ml @ 28.4 mls/hr Q8H IV 05/03/17 16:00 05/13/17 15:59 05/04/17 07:44 28.4 MLS/HR Metronidazole 500 mg/Prmx 100 ml @ 100 mls/hr Q8H IV 05/03/17 16:00 05/17/17 15:59 05/04/17 07:57 100 MLS/HR Piperacillin Sod/ Tazobactam Sod (Consult) 1 ea UD PRN N/A 05/03/17 15:30 06/02/17 15:29 Hydrocortisone (Cortef Tab) 10 mg HS PO 05/03/17 21:00 06/02/17 20:59 05/03/17 20:36 10 MG Sodium Chloride 1,000 ml @ 100 mls/hr Q10H IV 05/03/17 18:15 06/02/17 18:14 05/04/17 04:27 100 MLS/HR Hydromorphone HCl (Dilaudid Inj) 0.5 mg Q3HWA PRN IV 05/03/17 19:45 05/17/17 19:44 05/04/17 11:01 0.5 MG Nicotine (Nicoderm Cq 21MG Patch) 1 patch QAM TD 05/04/17 09:00 06/03/17 08:59 05/04/17 07:56 1 PATCH Miscellaneous (Remove Nicoderm Patch) 1 ea HS N/A 05/04/17 21:00 06/03/17 20:59 Insulin Aspart (novoLOG ASPART) SLIDING SCALE If C... ACHS HI 05/03/17 21:00 06/02/17 20:59 05/04/17 09:15 2 UNITS Insulin Glargine (Lantus Solostar Pen) SEE PROTOCOL QDD HI 05/04/17 12:00 06/03/17 11:59
[2017-05-04] MEDS: RASPBERRY SYRUP 5 ML UDP PO SCH ×3 (14:03→20:17)
[2017-05-04] MEDS: VANCOMYCIN HCL 125 MG/2.5ML SOLN PO SCH ×3 (14:03→20:17)
[2017-05-04] MEDS: ISOSORBIDE MONONITRATE 60 MG TABCR PO SCH (14:04)
[2017-05-04] MEDS: HEPARIN SOD 5000 UNIT/0.5 ML CARP SQ SCH ×2 (14:13→20:22)
--- NOTE | 2017-05-04 15:16 | Gastrointestinal Consultation ---
Gastrointestinal Consultation Date of Consultation: May 04, 2017 Attending Physician: Dr. Mosquera Consulting Physician: Dr. Nehemiah Cordova Reason for Consultation: Diverticulitis vs. UC flare History of Present Illness Patient is a 62 year old male patient of Dr. Lin with a hx of UC, followed by Dr. Keith as well as HTn, DM, CAD, adrenal insufficiency. He was recently admitted for pyelonephritis and was treated with antibiotics. He presented to the ED yesterday for nausea, vomiting, diarrhea which began on 05/02. On arrival, C-diff culture was positive. He is being treated with Flagyl IV and Vancomycin 125mg QID. He is also maintained on cholestyramine for chronic diarrhea and takes 1 gram every 6 hrs which has been continued. The patient is seen and examined while he is resting in bed. He continues with bilateral lower abdomen cramping but has had a significant improvement in the frequency and volume of diarrhea since the vancomycin was started. His WBC has improved from 18 to 13 and Cr has improved from 3 to 1.9. His has recurrent C-diff. She is treated by our group. Fecal transplant is recommended for her but she has not yet identified a potential donor. Past Medical/Surgical History Medical Problems: (1) Abdominal pain Status: Acute (2) Failure of outpatient treatment Status: Acute (3) Pyelonephritis Status: Acute (4) Sepsis Status: Acute (5) Sepsis Status: Acute Past Medical History: 1. Pyelonephritis 2. Adrenal insufficiency 3. ARF 4. DM 5. Hyperlipidemia 6. HTN 7. UC 8. CAD S/P coronary stenting. 9. C-diff in 2013 Past Surgical History: 1. Coronary stenting 2. Colonoscopy 02/19/17 Dr. Deal for chronic diarrhea: erythematous and granular mucosa in the entire colon. Sigmoid diverticulosis. 3. EGD Dr. Keith 12/31/16: normal. Family History Cancer Diabetes mellitus Heart disease Hypertension Social History Smoking Status: Current Every Day Smoker Alcohol Use: none Drug Use: none Marital Status: Housing Status: lives with family Occupation Status: retired Allergies Coded Allergies: Azathioprine (Verified Adverse Reaction, Unknown, RENAL COMPLICATIONS, 10/09) Current Medications Home Meds and Scripts Medications Dose Route/Sig Max Daily Dose Days Date Category Dose Instructions Mag64 (Magnesium Chloride) 535 Mg Tab 8 Tabs PO BID 05/03/17 Reported Nystatin 5 Ml Susp 5 Ml PO QID 05/03/17 Reported Humalog (Insulin Lispro (Human)) 100 Unit/Ml Inj SC UD 05/03/17 Reported SLIDING SCALE Lomotil (Diphenoxylate HCl/Atropine) Tab 1 Tab PO TID 05/03/17 Reported Ferrous Sulfate 325 Mg Tab 1 Tab PO DAILY 05/03/17 Reported Ventolin Hfa (Albuterol) 200 Puffs/04635 Mcg Aers 3-4 Puffs INH QID PRN 04/22/17 Rx Duoneb (Ipratropium-Albuterol) 3 Ml Nebu 1 Treatment INH QID PRN 04/22/17 Rx Spiriva Handihaler (Tiotropium [place]) 30 Puff/540 Mcg Aerp 1 Cap INH DAILY 04/20/17 Reported Lantus (Insulin Glargine) 100 Unit/Ml Inj 10-20 Units SC UD 04/20/17 Reported USE DIRECTED Remeron Soltab (Mirtazapine) 30 Mg Soltab 30 Mg PO HS 04/20/17 Reported Diflucan (Fluconazole) 100 Mg Tab 100 Mg PO DAILY PRN 04/20/17 Reported Potassium Chloride Er (Potassium Chloride Microencaps) 20 Meq Tab 1 Tab PO DAILY 30 02/28/17 Rx Prozac (Fluoxetine Hcl) 20 Mg Cap 1 Cap PO QAM 30 02/28/17 Rx Hydroxyzine HCl 25 Mg Tab 50 Mg PO HSZ PRN 30 02/28/17 Rx Breo Ellipta (Fluticasone Furoate-Vilanterol) 1 Inh Inh 1 Inha PO DAILY 02/19/17 Reported Lipitor (Atorvastatin Calcium) 80 Mg Tab 1 Tab PO DAILY 30 02/19/17 Reported Cortef (Hydrocortisone) 10 Mg Tab 10 Tab PO UD 02/19/17 Reported 1 TAB LET EVERY EVENING. INCREASE DIRECTED FOR ILLNESS Questran (Cholestyramine) 4 Gm Pow 4 Gm PO QID 02/19/17 Reported Dexamethasone Sodium Phos (Dexamethasone Sod Phos) 4 Mg/Ml Inj 1 Ml IM DIRECTED PRN 02/19/17 Reported Xanax (Alprazolam) 0.5 Mg Tab 0.5 Mg PO HS PRN 04/08/16 Reported Zestril (Lisinopril) 5 Mg Tab 5 Mg PO QAM 04/08/16 Reported Imdur Ext Rel (Isosorbide Mononitrate) 60 Mg Ertab 60 Mg PO QAM 04/08/16 Reported Lopressor (Metoprolol Tartrate) 100 Mg Tab 100 Mg PO BID 04/08/16 Reported Aspirin Chewable (Aspirin) 81 Mg Chew 81 Mg PO QAM 04/08/16 Reported Cortef (Hydrocortisone) 10 Mg Tab 20 Mg PO QAM 04/08/16 Reported 2 TAB LETS EVERY MORNINIG. INCREASE DIRECTED WITH ILLNESS Zantac (Ranitidine HCl) 150 Mg Tab 150 Mg PO BID 04/08/16 Reported Review of Systems Constitutional: No fever, No chills, No sweats, No weight loss, No weakness Eyes: No eye pain, No redness ENT: No sore throat, No trouble swallowing, No pain on swallowing Respiratory: No cough, No wheezing, No shortness of breath, No dyspnea on exertion Cardiac: No chest pain, No edema, No palpitations Abdomen: + see HPI, + pain, + nausea, + vomiting, + diarrhea Neuro: No memory loss, No weakness, No numbness/tingling, No vertigo, No balance problems Psych: No depression symptoms, No anxiety, No insomnia Heme: No abnormal bleeding/bruising, No night sweats Endo: No excessive thirst, No excessive urination Skin: No rash, No itch, No new/changing skin lesions, No jaundice Physical Exam Date Time Temp Pulse Resp B/P (MAP) Pulse Ox O2 Delivery O2 Flow Rate FiO2 05/04/17 12:43 36.8 82 16 126/74 (91) 96 05/04/17 12:00 Room Air 05/04/17 11:04 90 16 98 Room Air 05/04/17 08:30 Room Air 05/04/17 07:20 84 12 96 Room Air 05/04/17 07:06 36.7 82 18 124/76 (92) 98 Room Air 05/04/17 04:19 36.6 78 20 126/80 (95) 98 Room Air 05/04/17 04:00 Room Air 05/04/17 00:30 36.4 93 18 115/73 (87) 98 Room Air 05/04/17 00:00 Room Air 05/03/17 20:01 36.3 88 17 114/74 (87) 100 Room Air 05/03/17 20:00 100 Room Air 05/03/17 19:34 74 12 97 Room Air 05/03/17 18:18 36.4 72 18 104/67 (79) 98 05/03/17 16:03 36.4 67 20 107/70 (82) 100 Room Air 05/03/17 16:01 69 12 97 Room Air 05/03/17 16:00 100 Room Air General Appearance: no apparent distress Eyes: normal inspection, EOMI Neck: supple, no adenopathy, thyroid normal, no JVD Respiratory/Chest: chest non-tender, lungs clear, normal breath sounds, no accessory muscle use Cardiovascular: regular rate, rhythm, no JVD, no murmur Abdomen: normal bowel sounds, non tender, soft, no organomegaly, + tenderness ( bilat lower abdomen mild tenderness w/o guarding or rebound) Extremities: normal inspection, no pedal edema, normal capillary refill Neurologic/Psych: alert, normal mood/affect, oriented x 3 Skin: normal color, no jaundice, warm/dry, + pertinent finding (psoriasis on both lower legs) Laboratory Results Last 24 Hours Test 05/03/17 15:08 05/03/17 19:12 05/03/17 20:46 05/04/17 03:02 Sodium Level 141 mmol/L Potassium Level 5.3 mmol/L Chloride Level 111 mmol/L Carbon Dioxide Level 20 mmol/L Anion Gap 10.0 mmol/L Blood Urea Nitrogen 28 mg/dl Creatinine 2.90 mg/dl Est Creatinine Clear Calc Drug Dose 27.3 ml/min Estimated GFR () 25.7 Estimated GFR (Non- 22.2 BUN/Creatinine Ratio 9.5 Random Glucose 200 mg/dl Calcium Level 7.8 mg/dl Creatine Kinase MB 0.7 ng/ml 1.1 ng/ml Troponin I < 0.015 ng/ml < 0.015 ng/ml Bedside Glucose 282 mg/dl 220 mg/dl Creatine Kinase MB Ratio Test 05/04/17 06:44 05/04/17 09:12 05/04/17 11:50 White Blood Count 13.23 K/uL Red Blood Count 4.09 M/uL Hemoglobin 12.0 g/dL Hematocrit 37.2 % Mean Corpuscular Volume 91.0 fL Mean Corpuscular Hemoglobin 29.3 pg Mean Corpuscular Hemoglobin Concent 32.3 g/dl Platelet Count 258 K/uL Mean Platelet Volume 10.8 fL Neutrophils (%) (Auto) 79.8 % Lymphocytes (%) (Auto) 12.8 % Monocytes (%) (Auto) 6.3 % Eosinophils (%) (Auto) 0.5 % Basophils (%) (Auto) 0.1 % Neutrophils # (Auto) 10.57 K/uL Lymphocytes # (Auto) 1.69 K/uL Monocytes # (Auto) 0.84 K/uL Eosinophils # (Auto) 0.06 K/uL Basophils # (Auto) 0.01 K/uL RDW Standard Deviation 49.0 fL RDW Coefficient of Variation 14.6 % Immature Granulocyte % (Auto) 0.5 % Immature Granulocyte # (Auto) 0.06 K/uL Sodium Level 143 mmol/L Potassium Level 4.2 mmol/L Chloride Level 114 mmol/L Carbon Dioxide Level 19 mmol/L Anion Gap 10.0 mmol/L Blood Urea Nitrogen 23 mg/dl Creatinine 1.90 mg/dl Est Creatinine Clear Calc Drug Dose 41.6 ml/min Estimated GFR () 42.8 Estimated GFR (Non- 37.0 BUN/Creatinine Ratio 12.4 Random Glucose 137 mg/dl Calcium Level 7.7 mg/dl Magnesium Level 1.9 mg/dl Bedside Glucose 197 mg/dl 212 mg/dl Impression Patient is a 62 year old male with UC, now with C-diff. He is much improved with initiation of Vancomycin. Plan 1. Recommend a 10 day course of Vancomycin 125mg QIDs. 2. Advance diet. 3. May DC Flagyl on DC. 4. GI will watch eripherally. Please notify us if new/worsening GI issues. Pt should f/u in GI clinic for management of UC with Dr. Keith on a non urgent basis. I saw and evaluated the patient with Ms. Madrid. GI is consulted for C diff infection, recent course of abx for a urinary infection. PE: NAD, no icuterus Impression: uncomplicated D diff infection Recomendations Vancomycin 125 mg qid x 14 days pt to f/u with Dr. Keith his regular GI provider please call with questions
[2017-05-04] MEDS ORDERED: ALBUT/IPRATROP 3MG/0.5MG NEB 3 ML VIAL INH PRN (16:00)
[2017-05-04] MEDS ORDERED: RANITIDINE HCL 150 MG TAB PO ONE (20:00)
[2017-05-04] MEDS: MIRTAZAPINE SOLTAB 15 MG PO SCH (20:14)
[2017-05-04] MEDS: MAGNESIUM CHLORIDE 64MG DELAYED REL TAB PO SCH (20:16)
[2017-05-04] MEDS: CIPROFLOXACIN 500 MG TAB PO SCH (20:17)
[2017-05-04] MEDS: METOPROLOL TARTRATE 100 MG TAB PO SCH (20:48)
[2017-05-05 01:17] LABS: CKMB/CK RATIO 3.5 (0-3.0)
[2017-05-05] MEDS: HYDROmorphone INJ 1 MG/ML SYR IV PRN ×6 (02:56→23:15)
[2017-05-05 04:00] VITALS: BP 113/73; PULSE 61; TEMP 36.5; O2SAT 98
[2017-05-05] MEDS: HEPARIN SOD 5000 UNIT/0.5 ML CARP SQ SCH ×2 (05:48→14:33)
[2017-05-05 07:12] VITALS: BP 121/78; PULSE 60; TEMP 36.5; O2SAT 97
[2017-05-05 07:48] LABS: BASO % 0.2 %; BASO ABS # 0.02 K/uL (0-0.2); COMPLETE YES; EOS % 1.3 %; IG% 0.5 %; LYMPH ABS # 1.75 K/uL (1.2-3.4); MEAN CELL VOLUME 92.1 fL (80-100); MEAN CORPUSCULAR HEMOGLOBIN 29.2 pg (25-34); MEAN CORPUSCULAR HGB CONC 31.7 g/dl (32-36); MEAN PLATELET VOLUME 10.8 fL (7.4-10.4); MONO % 8.7 %; NEUT % 68.3 %; PLATELET COUNT 249 K/uL (130-400); WHITE BLOOD COUNT 8.32 K/uL (4.8-10.8)
[2017-05-05] MEDS: METRONIDAZOLE / NSS 500 MG in PREMIXED NSS 100 ML IV SCH ×3 (07:59→23:47)
[2017-05-05] MEDS: RASPBERRY SYRUP 5 ML UDP PO SCH ×5 (08:00→20:48)
[2017-05-05] MEDS: BREO ELLIPTA: ORDER AWAITING ACTION SCH ×3 (08:00→23:34)
[2017-05-05] MEDS: NYSTATIN SUSP 500,000 U/5 ML UDC PO SCH ×4 (08:00→20:53)
[2017-05-05] MEDS: ATORVASTATIN 40 MG TAB PO SCH (08:00)
[2017-05-05] MEDS: ASPIRIN 81 MG ECTAB PO SCH (08:00)
[2017-05-05] MEDS: MAGNESIUM CHLORIDE 64MG DELAYED REL TAB PO SCH (08:01)
[2017-05-05] MEDS: FLUOXETINE HCL 20 MG CAP PO SCH (08:02)
[2017-05-05] MEDS: CIPROFLOXACIN 500 MG TAB PO SCH ×2 (08:02→19:37)
[2017-05-05] MEDS: NICOTINE 21 MG/24 HR TDSY TD SCH (08:03)
[2017-05-05] MEDS: TIOTROPIUM BROMIDE 5 PUFF/90 MCG INH INH SCH (08:03)
[2017-05-05] MEDS: HYDROCORTISONE 10 MG TAB PO SCH ×2 (08:03→20:50)
[2017-05-05] MEDS: RANITIDINE HCL 150 MG TAB PO SCH ×2 (08:04→20:51)
[2017-05-05] MEDS: ISOSORBIDE MONONITRATE 60 MG TABCR PO SCH (08:04)
--- NOTE | 2017-05-05 08:09 | Clinical Documentation Query ---
CLINICAL DOCUMENTATION QUERY Dr. EVANS, In your clinical opinion is this patient being managed for: (x ) Urinary tract infection ( ) Other explanation of clinical findings (Please Explain) ( ) Unable to determine (Please Define) ( ) Need to Discuss ( ) Not Agree The medical record reflects the following clinical findings, treatment, and risk factors. Clinical Indicators:62 yo male presenting with C diff colitis. UA cx preliminary showing gram + cocci Treatment: po cipro, IV fluids Risk Factors: Ulcerative colitis, C diff colitis, DM, acute renal failure, recent pyelonephritis Please clarify and document your clinical opinion in the progress notes and discharge summary. Terms such as "probable", "suspected", "likely", "questionable", "possible", or "still to be ruled out" are acceptable. IF IN AGREEMENT, YOU MUST DOCUMENT ABOVE DIAGNOSTIC STATEMENT IN DAILY PROGRESS NOTES AND DISCHARGE SUMMARY. This document is not part of the patient's record. Thank You, Beverly Shepherd RN [phone]
[2017-05-05] MEDS: VANCOMYCIN HCL 125 MG/2.5ML SOLN PO SCH ×5 (08:14→20:48)
[2017-05-05] MEDS: INSULIN ASPART 100 UNITS/ML 3 ML PEN SC SCH ×4 (08:17→20:51)
[2017-05-05 08:20] LABS: BUN/CREATININE RATIO 11.1 (10-20); CREATININE 1.1 mg/dl (0.60-1.40); MAGNESIUM 1.7 mg/dl (1.8-2.4); POTASSIUM 4.1 mmol/L (3.5-5.1)
[2017-05-05] MEDS: METOPROLOL TARTRATE 100 MG TAB PO SCH ×3 (08:30→20:52)
[2017-05-05 09:04] LABS: CALCIUM 7.9 mg/dl (8.5-10.1)
--- NOTE | 2017-05-05 09:23 | Pharmacy Progress Note ---
Glycemic Control: Progress Nt Date of Service May 05, 2017. Scope Glycemic Pharmacist consulted for glycemic control and to write orders per [facility] inpatient glycemic control protocol. Objective Accuchecks BSG (last 24hrs): Test 05/04/17 11:50 05/04/17 17:15 05/04/17 20:19 05/04/17 20:51 Bedside Glucose 212 mg/dl (70-99) 179 mg/dl (70-99) 65 mg/dl (70-99) 92 mg/dl (70-99) Test 05/05/17 06:50 05/05/17 07:38 Random Glucose 104 mg/dl (70-99) Bedside Glucose 111 mg/dl (70-99) Laboratory Data (last 24hrs) Recent Pertinent Medications Outpatient Anti-diabetic Regimen: * Lantus * 10-20 units SQ q PM as directed * Humalog * sliding scale * A1c = 7 % 02/20/17 The patient is currently receiving: * Basal insulin: * Lantus 5-10 units every 24 hours in the evening for BSG > 140mg/dl * Bolus Insulin: * NovoLog SQ ACHS - Goal Range: Low 100 mg/dL - High 140 mg/dL - Correction Factor: 30 mg/dL/unit - Carb ratio of 1 unit per 11 grams CHO consumed Risk Factors for Insulin Resistance: * Steroids * Infection * Diet Assessment & Plan ASSESSMENT: * Mr Urbina is a 62 y/o type 2 diabetic male who is known to the glycemic consult service (most recent admission in February 2017) * During hospital admission, Mr. Urbina requires very little insulin (<10 units per day) - will resume the insulin regimen that was utilized during the past admission which is more conservative than his home regimen. * Patient is currently receiving 22-29 units of insulin per day * 10 units of basal insulin * 19 units of prandial/correctional insulin * BSGs ranging 65 -212mg/dl over the past 24hrs * Insulin regimen was tightened yesterday secondary to steroid dosing, infection , advancing diet, and increased AM fasting BSG. * However, Pt with low BSG last evening {BSG = 65} secondary to too much prandial insulin coverage at dinner. Will loosen CF/CR * AM fasting BSG is slightly below goal range for inpatient targets at 111mg/ dl --> will lower basal insulin slightly. PLAN FOR INPATIENT GLYCEMIC CONTROL: * Basal insulin: decrease dosing, continue dosing based on BSG as previous admission pt did not require basal insulin. * Lantus SQ daily with dinner based on BSG * if BSG below 180mg/dL (0 units) * if BSG above 180mg/dL (5 units) * Bolus insulin: loosen parameters * NovoLog SQ AC and HS - Correction factor: 35mg/dL/unit - Carb ratio: 1 unit per 20g of CHO consumed - Goal: 110-140mg/dL * A1c - current * Please note that the plan above was derived based on current level of insulin resistance and hospital stress. These recommendations are appropriate for inpatient admission only. Plan of care upon discharge will need to be reassessed to avoid potential outpatient hypo/hyperglycemia. Thank you.
[2017-05-05] MEDS ORDERED: GI COCKTAIL PO ONE (09:38)
[2017-05-05] MEDS ORDERED: GI COCKTAIL PO PRN (09:45)
[2017-05-05] MEDS ORDERED: ALUMINUM/MAGNESIUM SUSP 72 ML, LIDOCAINE HCL 2% VISCOUS SOLN 24 ML, BARCODE IDENTIFIER ... PO PRN ×2 (10:00)
[2017-05-05] MEDS ORDERED: ALUMINUM/MAGNESIUM SUSP 72 ML, LIDOCAINE HCL 2% VISCOUS SOLN 24 ML, BARCODE IDENTIFIER ... PO ONE ×2 (10:00)
[2017-05-05] MEDS: CHOLESTYRAMINE LIGHT 4 GM PKT PO SCH ×4 (10:00→22:09)
[2017-05-05] MEDS: POTASSIUM CHLORIDE 20 MEQ TABCR PO SCH (10:06)
[2017-05-05] MEDS ORDERED: MAG SULFATE IV SCH (10:15)
[2017-05-05] MEDS ORDERED: [UNRECOGNIZED DRUG - OTHER] IV SCH (10:15)
[2017-05-05] MEDS ORDERED: CALCIUM GLUCONATE IV SCH (10:15)
[2017-05-05] MEDS: SODIUM CHLORIDE 0.9% 1000ML 1,000 ML IV SCH (10:43)
[2017-05-05 11:37] VITALS: BP 119/72; PULSE 62; TEMP 36.3; O2SAT 97
[2017-05-05] MEDS ORDERED: VANCOMYCIN CONSULT ACTIVE PRN (13:42)
--- NOTE | 2017-05-05 13:59 | Pharmacy Progress Note ---
Pharmacy Abx Initial Consult Date of Service May 05, 2017. Pharmacy Dosing Scope Date of Consult: 05/05/17 Consultation requested by: Dr. Shankar Pharmacy is consulted to initiate vancomycin IV dosing therapy, order appropriate labs and adjust drug dose/frequency. Subjective The patient is a 62 year old male admitted on May 03, 2017 at 12:17. Objective Height (Feet): 5 Height (Inches): 10.00 Weight (Kilograms): 75.200 Vital Signs (Past 12Hrs) Vital Signs Past 12 Hours Date Time Temp Pulse Resp B/P (MAP) Pulse Ox O2 Delivery O2 Flow Rate FiO2 05/05/17 12:00 Room Air 05/05/17 11:37 36.3 62 20 119/72 (88) 97 Room Air 05/05/17 09:00 Room Air 05/05/17 07:12 36.5 60 18 121/78 (92) 97 Room Air 05/05/17 04:00 Room Air 05/05/17 04:00 36.5 61 20 113/73 (86) 98 Room Air Lab Results (24Hrs) Laboratory Tests (24 Hours) Test 05/05/17 00:45 05/05/17 06:50 Total Creatine Kinase 62 U/L (39-308) White Blood Count 8.32 K/uL (4.8-10.8) Red Blood Count 3.80 M/uL (4.7-6.1) L Hemoglobin 11.1 g/dL (14.0-18.0) L Hematocrit 35.0 % (42-52) L Mean Corpuscular Volume 92.1 fL (80-100) Mean Corpuscular Hemoglobin 29.2 pg (25-34) Mean Corpuscular Hemoglobin Concent 31.7 g/dl (32-36) L Platelet Count 249 K/uL (130-400) Mean Platelet Volume 10.8 fL (7.4-10.4) H Neutrophils (%) (Auto) 68.3 % Lymphocytes (%) (Auto) 21.0 % Monocytes (%) (Auto) 8.7 % Eosinophils (%) (Auto) 1.3 % Basophils (%) (Auto) 0.2 % Neutrophils # (Auto) 5.68 K/uL (1.4-6.5) Lymphocytes # (Auto) 1.75 K/uL (1.2-3.4) Monocytes # (Auto) 0.72 K/uL (0.11-0.59) H Eosinophils # (Auto) 0.11 K/uL (0-0.5) Basophils # (Auto) 0.02 K/uL (0-0.2) Micro Results Date/Time Source Procedure Growth Status 05/03/17 10:42 Blood Blood Culture - Preliminary NO GROWTH TO DATE. Resulted 05/03/17 10:35 Blood Blood Culture - Preliminary NO GROWTH TO DATE. Resulted 05/03/17 11:33 Stool C.difficile Toxin B Gene (PCR) - Final Positive for C. difficile toxin B gene Complete 05/03/17 11:33 Stool Shiga Toxin Test - Preliminary No E. Coli shiga toxin 1 or shiga tox... Resulted 05/03/17 11:33 Stool Stool Culture - Preliminary NO SALMONELLA ISOLATED TO DATE,... Resulted 05/03/17 11:33 Urine , Clean Catch Urine Culture - Preliminary Gram Positive Cocci Resulted Risk Factors for Resistance * Hospitalization for 48 hours or more within the past 90 days * Antimicrobial use within the last 90 days - Levaquin on 04/21/17 for pyelonephritis Assessment & Plan Assessment 62 year old male currently on vancomycin for C diff colitis, Cipro po and Flagyl IV for diverticulitis, now with GPC in urine culture Plan For treatment of GPC in urine: Vancomycin IV * Est PK parameters (based on CrCl 72): Vd 0.7 L, Torrey 0.064 hr-1, t1/2 10.8 hrs * Loading dose: 1750 mg (25 mg/kg) * Maintenance dose: 1000 mg IV (13.3 mg/kg) every 12 hours * Goal trough level for UTI : ~15 mcg/mL * Trough level ordered for 05/07/17 prior to the 4th overall dose Pharmacy will continue to follow and will adjust dose/frequency as necessary. Thank you.
[2017-05-05] MEDS ORDERED: VANCOMYCIN INJ 1,750 MG in SODIUM CHLORIDE 0.9% 500ML 500 ML IV ONE (14:00)
[2017-05-05 14:59] VITALS: BP 129/71; PULSE 70; TEMP 36.4; O2SAT 96
--- NOTE | 2017-05-05 16:03 | CARDIOLOGY CONSULTATION ---
DATE OF CONSULTATION: 05/05/2017 TIME: 14:49 p.m. CONSULTING PHYSICIAN: Dr. Shankar. REASON FOR CONSULTATION: Chest pain with a history of coronary artery disease. HISTORY OF PRESENT ILLNESS: Mr. Urbina is a very pleasant 62-year-old gentleman with a history significant for multivessel CAD, status post PCI of OM1 and RCA, diabetes, hypertension, dyslipidemia, adrenal insufficiency, ulcerative colitis and Schatzki's ring status post dilation. He was admitted to [facility] on 05/03/2017 after presenting with abdominal pain, symptomatic hypotension, and was found to have C. diff. He states that he was hospitalized in March of 2017, approximately 2 weeks ago and was diagnosed with bilateral pyelonephritis. At that time, he noticed that when he eats solid foods, there was some mild discomfort in his chest area. This worsened 4 days ago. He then had nothing to eat over the weekend, but developed diarrhea. He had at least 10 bouts of diarrhea per day. On Thursday, 2 days ago, he felt near syncopal. He was found to have a systolic blood pressure in the 70s by EMS and he was taken to the Emergency Department for further evaluation. He continued to have diarrhea and was not eating any foods and consumed very little fluid according to his . He denies fever, but does have lower abdominal pain. Last night, he had his first food in some time and immediately following solid food, once again developed substernal chest burning. This happened immediately upon swallowing and belching. It lasted for hours. Every time that he has eaten something throughout his hospital stay, he has developed this chest discomfort. He states that it can last for at least 2 hours and much longer at times. The only thing that has offered any relief that he found thus far is a GI cocktail. He states that this is exactly the same situation that he experienced in 2013 when he was found to have a Schatzki's ring. The symptoms resolved immediately following dilation via EGD. He states that his diarrhea is worsening. He continues to have abdominal pain. He developed nausea with eating. He denies exertional chest discomfort. He states that his angina in the past with myocardial infarction consisted of substernal chest burning with radiation to his neck, jaw, left arm, and associated shortness of breath and diaphoresis. These other symptoms and associated issues have not been present with his current presentation. He denies edema, palpitations, syncope, orthopnea, stroke or stroke-like symptoms. He is color blinded and therefore has not noted any hematochezia or hematuria. REVIEW OF SYSTEMS: As above and review of systems is otherwise unremarkable. PAST MEDICAL HISTORY: 1. CAD status post RCA PCI on 09/09/2002. OM1 PCI on 08/08/2004. 2. Diabetes. 3. Hypertension. 4. Dyslipidemia. 5. Adrenal insufficiency. 6. Ulcerative colitis, followed by Dr. Keith. 7. Schatzki's ring, status post dilation in 2013. 8. COPD. 9. Psoriasis. 10. Tobacco abuse. HOME MEDICATIONS: Include aspirin 81 mg daily, atorvastatin 80 mg daily, Diflucan 100 mg daily, Prozac 1 tablet daily, hydrocortisone 20 mg in the morning and 10 mg at night, Lantus, isosorbide mononitrate 60 mg daily, lisinopril 5 mg daily, and metoprolol 100 mg b.i.d. Please see full list on H&P. CURRENT INPATIENT MEDICATIONS: Include, 1. Aspirin 81 mg daily. 2. Atorvastatin 80 mg daily. 3. Ciprofloxacin 500 mg q.12h. 4. Heparin 5,000 units subQ q. 8 hours. 5. Hydrocortisone 20 mg in the morning and 10 mg at bedtime. 6. Dilaudid p.r.n. 7. Isosorbide mononitrate 60 mg daily. 8. Metoprolol tartrate 100 mg b.i.d. 9. Flagyl 500 mg IV q. 8 hours. 10. Remeron 30 mg at bedtime. 11. Potassium chloride 20 mEq daily. 12. Vancomycin 1750 mg IV followed by 1000 mg IV b.i.d. 13. Vancomycin 125 mg p.o. q.i.d. ALLERGIES: AZATHIOPRINE. SOCIAL HISTORY: He continues to smoke and has smoked for greater than 40 years. Occasional alcohol. No drugs. He is . His , Chica, is currently present at the bedside. He has 2 biologic children and 2 stepchildren. 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 He is originally from [facility], near [place]. FAMILY HISTORY: Mother and father with CABG. Mother also had valvular heart disease. He has 3 siblings. PHYSICAL EXAMINATION: VITAL SIGNS: Temperature 36.3 degrees, heart rate 62 beats per minute, respiratory rate 20, blood pressure 119/72 mmHg, and oxygen saturation 97% on room air. Weight 75.2 kilograms. I's and O's positive 4.4 liters. GENERAL: No acute distress. He is alert and oriented. HEENT: Anicteric sclerae. NECK: No appreciable JVD. No bruits. Normal carotid upstrokes bilaterally. CARDIAC EXAMINATION: PMI was nonpalpable. There was no ventricular heave. Regular, normal S1 and S2. No audible murmurs, rubs or gallops. LUNGS: Clear to auscultation bilaterally without wheezes, rales or rhonchi. ABDOMEN: Soft. There is epigastric and also bilateral lower quadrant abdominal tenderness. No rebound tenderness. No palpable masses. Normoactive bowel sounds. EXTREMITIES: No cyanosis or edema. 2+ radial pulses bilaterally. 1+ dorsalis pedis pulses bilaterally. PSYCHIATRIC: Affect appears appropriate. DIAGNOSTIC STUDIES: ECGs personally reviewed. ECG upon presentation demonstrated sinus rhythm at 71 beats per minute. Possible left atrial enlargement. Repeat ECG performed today at 0041 a.m., sinus bradycardia at 56 beats per minute. Otherwise, normal ECG. Most recent cardiac catheterization on 12/23/2013: Mid LAD 40%-50%. Patent OM1 stent. OM1 stent significantly larger than the [place] vessel. Dominant circumflex. Nondominant RCA with mid RCA stent, 30% in-stent restenosis. Distal RCA 60% and a very small caliber vessel with significant tapering. Echocardiogram on 12/12/2013: Normal LV size, systolic function, wall motion. EF 60%-65%. No significant valvular abnormalities. LABORATORY DATA: White blood cell count 8.32 down from 18.19, hemoglobin 11.1 down from 17.4, and platelets 249. Sodium 146, potassium 4.1, BUN 12 down from 28, creatinine 1.1 down from 3.4, and magnesium 1.7. Troponin undetectable x4. Abdominal/pelvic CT on 05/03/2017: No renal, ureteral, or bladder calculi identified. No bowel obstruction. There is subtle infiltration of the mesenteric fat within the right lower quadrant per radiology. Bladder wall thickening. Chest x-ray image personally reviewed. Chest x-ray performed on 05/03/2017. No infiltrate or CHF noted. As per radiology, no acute disease in the chest. ASSESSMENT AND PLAN: 1. Chest pain: His chest pain is not suggestive of ischemic heart disease. It occurs only while eating solid foods and is the same presentation he had in 2014, in which case, he was found to have a Schatzki's ring with complete resolution of his symptoms following dilation. This was performed by Dr. Keith. Mr. Urbina also believes that this is due to his esophagus based on his prior experiences. He has no exertional symptoms. He has negative troponin levels despite hour's worth of chest discomfort. An echocardiogram will be ordered given the fact that he has not had an echo in years and has had chest discomfort; however, once again, this presentation is not consistent with ischemic heart disease. GI is on board. Recommendations were discussed with Dr. Shankar in the hospitalist service, who presented to the bedside. 2. Coronary artery disease, status post percutaneous coronary intervention: Would recommend continuation of aspirin 81 mg daily indefinitely given prior PCI to lower the risk of stent thrombosis and acute myocardial infarction. Continue high intensity statin therapy. Continue beta pat. No further ischemic evaluation recommended at this time. 3. Clostridium difficile: As per GI and primary service. 4. Hypovolemia: He presented with what appears to be hypovolemia with symptomatic hypotension and acute renal failure. Labs and symptoms had been corrected with IV fluid resuscitation. As per primary service. 5. Hypertension: Blood pressure has been well controlled. Continue current regimen. 6. Tobacco abuse: It was recommended that he stop smoking. 7. Disposition: Plan of care has been discussed with Dr. Shankar of the primary hospitalist service. No further cardiology recommendations at that time, pending echo findings. Please call with any other questions or concerns. Cardiology will sign off. He should follow up in the cardiology office for routine cardiology followup. Thank you for allowing me to participate in the care of Mr. Urbina. Sincerely,
[2017-05-05] MEDS: INSULIN GLARGINE SOLOSTAR 100 UNITS/ML 3 ML PEN SC SCH (16:50)
[2017-05-05] MEDS ORDERED: BUTT PASTE 171 APPLN/57 GM JAR EXT PRN (17:30)
--- NOTE | 2017-05-05 17:40 | Progress Note ---
Medicine Progress Note Date & Time of Visit: May 05, 2017 at 17:25. Subjective 61 year old male with history of Ulcerative Colitis, Chronic Intermittent Prednisone Use, Adrenal Insufficiency, CAD, DM 2 on Insulin, p/w c-diff colitis after Levaquin use last week. -pt has persistent dysuria and urgency -he also has some worsening of his diarrhea after starting food yesterday -stool color change to less black after stopping iron supplementation yesterday -again a concern overnight about heartburn so he was placed back on telemetry with a rule out of serial cardiac enzymes -tolerating regular food -ambulatory. Objective Last 8 Hrs Date Time Temp Pulse Resp B/P (MAP) Pulse Ox O2 Delivery O2 Flow Rate FiO2 05/05/17 16:00 Room Air 05/05/17 14:59 36.4 70 18 129/71 (90) 96 Room Air 05/05/17 12:00 Room Air 05/05/17 11:37 36.3 62 20 119/72 (88) 97 Room Air Physical Exam: GEN: WNWD, in no acute distress, alert and appropriate HEENT: NC/AT, normal sclerae CARDIO: reg rate, S1/2 heard without m/g/r LUNGS: CTA bilaterally, no crackles, rales or wheezes, good diaphragmatic excursion ABD: soft, TTP in LLQ and suprapubic tenderness appreciated, LUQ TTP also present today. Non-distended, no rebound or guarding. +BS present EXTREMITY: RP and DP palpable 2+ bilat, no LE swelling or edema, extremities are warm and well-perfused NEURO: CN 2-12 grossly intact, no gross focal deficits. MUSC: moves all extremities equally SKIN: warm and dry. some erythema noted across the face consistent with poss rosacea. Laboratory Results: 05/05/17 06:50 Red Blood Count 3.80, Mean Corpuscular Volume 92.1, Mean Corpuscular Hemoglobin 29.2, Mean Corpuscular Hemoglobin Concent 31.7, Mean Platelet Volume 10.8, Neutrophils (%) (Auto) 68.3, Lymphocytes (%) (Auto) 21.0, Monocytes (%) (Auto) 8.7, Eosinophils (%) (Auto) 1.3, Basophils (%) (Auto) 0.2, Neutrophils # (Auto) 5.68, Lymphocytes # (Auto) 1.75, Monocytes # (Auto) 0.72, Eosinophils # (Auto) 0.11, Basophils # (Auto) 0.02 05/05/17 06:50 Test 05/03/17 09:25 05/03/17 11:33 05/03/17 13:30 05/03/17 13:38 Total Bilirubin 0.8 mg/dl (0.2-1) Direct Bilirubin 0.2 mg/dl (0-0.2) Aspartate Amino Transf (AST/SGOT) 23 U/L (15-37) Alanine Aminotransferase (ALT/SGPT) 31 U/L (12-78) Alkaline Phosphatase 173 U/L (45-117) Total Protein 8.8 gm/dl (6.4-8.2) Albumin 3.6 gm/dl (3.4-5.0) Lipase 330 U/L (73-393) Urine Color DK YELLOW Urine Appearance CLOUDY (CLEAR) Urine pH 5.0 (4.5-7.5) Urine Specific [place] 1.023 (1.000-1.030) Urine Protein 2+ (NEG) Urine Glucose (UA) NEG (NEG) Urine Ketones TRACE (NEG) Urine Occult Blood 2+ (NEG) Urine Nitrite NEG (NEG) Urine Bilirubin NEG (NEG) Urine Urobilinogen NEG (NEG) Urine Leukocyte Esterase SMALL (NEG) Urine WBC (Auto) >30 /hpf (0-5) Urine RBC (Auto) 5-10 /hpf (0-4) Urine Hyaline Casts (Auto) 1-5 /lpf (0-5) Urine Epithelial Cells (Auto) >30 /lpf (0-5) Urine Bacteria (Auto) 4+ (NEG) Urine Pathogenic Casts /lpf (0) Lactic Acid Level 1.1 mmol/L (0.4-2.0) Bedside Lactic Acid Venous 1.00 mmol/L (0.90-1.70) Test 05/05/17 00:45 05/05/17 06:50 05/05/17 16:29 Total Creatine Kinase 62 U/L (39-308) Creatine Kinase MB 2.2 ng/ml (0.5-3.6) Creatine Kinase MB Ratio 3.5 (0-3.0) Troponin I < 0.015 ng/ml (0-0.045) White Blood Count 8.32 K/uL (4.8-10.8) Red Blood Count 3.80 M/uL (4.7-6.1) Hemoglobin 11.1 g/dL (14.0-18.0) Hematocrit 35.0 % (42-52) Mean Corpuscular Volume 92.1 fL (80-100) Mean Corpuscular Hemoglobin 29.2 pg (25-34) Mean Corpuscular Hemoglobin Concent 31.7 g/dl (32-36) Platelet Count 249 K/uL (130-400) Mean Platelet Volume 10.8 fL (7.4-10.4) Neutrophils (%) (Auto) 68.3 % Lymphocytes (%) (Auto) 21.0 % Monocytes (%) (Auto) 8.7 % Eosinophils (%) (Auto) 1.3 % Basophils (%) (Auto) 0.2 % Neutrophils # (Auto) 5.68 K/uL (1.4-6.5) Lymphocytes # (Auto) 1.75 K/uL (1.2-3.4) Monocytes # (Auto) 0.72 K/uL (0.11-0.59) Eosinophils # (Auto) 0.11 K/uL (0-0.5) Basophils # (Auto) 0.02 K/uL (0-0.2) RDW Standard Deviation 50.5 fL (36.4-46.3) RDW Coefficient of Variation 15.0 % (11.5-14.5) Immature Granulocyte % (Auto) 0.5 % Immature Granulocyte # (Auto) 0.04 K/uL (0.00-0.02) Anion Gap 10.0 mmol/L (3-11) Est Creatinine Clear Calc Drug Dose 71.9 ml/min Estimated GFR () 82.9 Estimated GFR (Non- 71.6 BUN/Creatinine Ratio 11.1 (10-20) Calcium Level 7.9 mg/dl (8.5-10.1) Magnesium Level 1.7 mg/dl (1.8-2.4) Bedside Glucose 133 mg/dl (70-99) Date/Time Source Procedure Growth Status 05/03/17 10:42 Blood Blood Culture - Preliminary NO GROWTH TO DATE. Resulted 05/03/17 11:33 Stool C.difficile Toxin B Gene (PCR) - Final Positive for C. difficile toxin B gene Complete 05/03/17 11:33 Urine , Clean Catch Urine Culture - Preliminary Gram Positive Cocci Resulted Last 24 Hours Test 05/04/17 20:19 05/04/17 20:51 05/05/17 00:45 05/05/17 06:50 Bedside Glucose 65 mg/dl 92 mg/dl Total Creatine Kinase 62 U/L Creatine Kinase MB 2.2 ng/ml Creatine Kinase MB Ratio 3.5 Troponin I < 0.015 ng/ml White Blood Count 8.32 K/uL Red Blood Count 3.80 M/uL Hemoglobin 11.1 g/dL Hematocrit 35.0 % Mean Corpuscular Volume 92.1 fL Mean Corpuscular Hemoglobin 29.2 pg Mean Corpuscular Hemoglobin Concent 31.7 g/dl Platelet Count 249 K/uL Mean Platelet Volume 10.8 fL Neutrophils (%) (Auto) 68.3 % Lymphocytes (%) (Auto) 21.0 % Monocytes (%) (Auto) 8.7 % Eosinophils (%) (Auto) 1.3 % Basophils (%) (Auto) 0.2 % Neutrophils # (Auto) 5.68 K/uL Lymphocytes # (Auto) 1.75 K/uL Monocytes # (Auto) 0.72 K/uL Eosinophils # (Auto) 0.11 K/uL Basophils # (Auto) 0.02 K/uL RDW Standard Deviation 50.5 fL RDW Coefficient of Variation 15.0 % Immature Granulocyte % (Auto) 0.5 % Immature Granulocyte # (Auto) 0.04 K/uL Sodium Level 146 mmol/L Potassium Level 4.1 mmol/L Chloride Level 119 mmol/L Carbon Dioxide Level 17 mmol/L Anion Gap 10.0 mmol/L Blood Urea Nitrogen 12 mg/dl Creatinine 1.10 mg/dl Est Creatinine Clear Calc Drug Dose 71.9 ml/min Estimated GFR () 82.9 Estimated GFR (Non- 71.6 BUN/Creatinine Ratio 11.1 Random Glucose 104 mg/dl Calcium Level 7.9 mg/dl Magnesium Level 1.7 mg/dl Test 05/05/17 07:38 05/05/17 11:35 05/05/17 15:05 05/05/17 16:29 Bedside Glucose 111 mg/dl 124 mg/dl 138 mg/dl 133 mg/dl Assessment & Plan 61 year old male with history of Ulcerative Colitis, Chronic Intermittent Prednisone Use, Adrenal Insufficiency, CAD, DM 2 on Insulin, p/w c-diff colitis after Levaquin use last week. 1. Abdominal pain 2/2 C-diff colitis: etiology includes but not limited to recent abx use in setting of prior c-diff infections and exposure to who is currently c-diff positive. Also, in the setting of UC, there may be a component of UC flare here, however, the pain with prior flares is more chronic than the discomfort he is currently experiencing. CT also revealed a poss ileal diverticulitis. LLQ persists on exam and some suprapubic tenderness, also. Cont Flagyl and add Cipro to treat the diverticulitis. Of note, patient has bacteriuria with UCx pending, currently growing GPCs so Vanc IV was started ; prior culture results revealed a FQ-sensitive strain of E coli. Cont Vanc PO started yesterday for the c-diff. Tolerating PO so stopping IVF now. Pt reports a worsening of his diarrhea and stool color is no longer black after stopping the iron supplementation and starting food yesterday. Cont to avoid milk products in setting of diarrhea and heartburn. This heartburn has persisted in the setting of prior esophageal strictures and dysphagia in the past. GI cocktail is somewhat helpful. Ranitidine increased to BID with resolution of CRISTIAN. GI made aware of diverticulitis issue today and will weigh in on if they feel two additional abx are warranted. Also, they are aware of the heartburn and dysphagia which has worsened here in the hospital. He has an outpatient appt with Dr. Keith in two days for this. 2. CRISTIAN likely 2/2 clinical dehydration 2/2 GI losses. Resolved. Stopping IVF now. Will increase ranitidine to BID dosing. 3. Atypical chest discomfort likely related to heartburn. Cardiology evaluation today and suggest this pain is non-cardiac. 4. UC-pt takes hydrocortisone regularly to control flares and is on Questran QID for help w chronic liquid stools. Recent colonoscopy was 02/20/17 while he was hospitalized for a UC flare. 5. Acute cystitis-recently treated for bilateral pyelonephritis in the last two weeks. Presented this admission with some dysuria, and has suprapubic tenderness on exam as well as bladder wall thickening on CT scan and a positive UA. No evidence of pyelo present as he is afebrile, without CVA tenderness and there is no evidence of hydronephrosis or other pyelo findings on the CT scan performed yesterday. Cont with abx regimen as above while awaiting UCx results and added Vanc IV today as culture is growing GPCs. 6. Chronic adrenal insufficiency-cont home dose of hydrocortisone. 7. CAD-stable, no active ACS or concerning symptoms. Cont medical management with ASA, statin, restarted Imdur yest which may also help with atypical chest discomfort above. Restarted Lopressor yesterday 8. DMII: Lantus/ISS per pharmacy recs. Sugar is controlled. 9. HTN-restarting lisinopril now with resolution of CRISTIAN. 10. COPD-not oxygen-dependent and is stable without wheezing on exam. Cont Duonebs PRN and Spiriva daily. Nicoderm patch to control cravings to smoke. 11. Tobacco abuse-Nicotine replacement given. 12. Iron-deficiency anemia-holding outpatient iron supplementation now. DVT proph-heparin SQ TID--switch to Lovenox in am with resolution of CRISTIAN FULL CODE Dispo: med/surg Sabrina Shankar DO [facility] Hospitalist Consultants: GI Current Inpatient Medications: Current Inpatient Medications Medications (Trade) Dose Ordered Sig/Tisha Route Start Time Stop Time Status Last Admin Dose Admin Alprazolam (Xanax Tab) 0.5 mg HS PRN PO 05/03/17 13:00 06/02/17 12:59 Aspirin (Ecotrin Tab) 81 mg QAM PO 05/04/17 09:00 06/03/17 08:59 05/05/17 08:00 81 MG Atorvastatin Calcium (Lipitor Tab) 80 mg DAILY PO 05/04/17 09:00 06/03/17 08:59 05/05/17 08:00 80 MG Fluoxetine HCl (Prozac Cap) 20 mg QAM PO 05/04/17 09:00 06/03/17 08:59 05/05/17 08:02 20 MG Hydrocortisone (Cortef Tab) 20 mg QAM PO 05/04/17 09:00 06/03/17 08:59 05/05/17 08:03 20 MG Hydroxyzine HCl (Vistaril Tab) 50 mg HSZ PRN PO 05/03/17 13:00 06/02/17 12:59 Nystatin (Mycostatin Susp) 5 ml QID PO 05/03/17 13:00 05/13/17 12:59 05/05/17 16:15 5 ML Ranitidine HCl (zANTac TAB) 150 mg DAILY PO 05/04/17 09:00 06/03/17 08:59 05/05/17 08:04 150 MG Tiotropium [place] (Spiriva Handihaler Inhaler) 1 puff DAILY INH 05/04/17 09:00 06/03/17 08:59 05/05/17 08:03 1 PUFF Cholestyramine Resin (Questran Powder Light) 4 gm QID@1000,1400,1800,2200 PO 05/03/17 18:00 06/02/17 17:59 05/04/17 20:19 4 GM Miscellaneous Information (Order Awaiting Action) 1 ea QS N/A 05/03/17 16:00 06/02/17 15:59 Mirtazapine (Remeron Solutab) 30 mg HS PO 05/03/17 21:00 06/02/17 20:59 05/04/17 20:14 30 MG Glucose (Glucose 40% Gel) 15-30 GRAMS 15 GRAMS... UD PRN PO 05/03/17 13:00 06/02/17 12:59 Glucose (Glucose Chew Tab) 4-8 Tablets 4 Tabl... UD PRN PO 05/03/17 13:00 06/02/17 12:59 Dextrose (Dextrose 50% 50ML Syringe) 25-50ML OF 50% DW IV FOR... UD PRN IV 05/03/17 13:00 06/02/17 12:59 Glucagon (Glucagon Inj) 1 mg UD PRN SQ 05/03/17 13:00 06/02/17 12:59 Miscellaneous Information (Consult Glycemic Management Pharmacy) 1 ea UD PRN N/A 05/03/17 14:26 06/02/17 14:25 Ondansetron HCl (Zofran Inj) 4 mg Q6H PRN IV 05/03/17 13:30 06/02/17 13:29 05/05/17 08:14 4 MG Metronidazole 500 mg/Prmx 100 ml @ 100 mls/hr Q8H IV 05/03/17 16:00 05/17/17 15:59 05/05/17 16:15 100 MLS/HR Hydrocortisone (Cortef Tab) 10 mg HS PO 05/03/17 21:00 06/02/17 20:59 05/04/17 20:16 10 MG Hydromorphone HCl (Dilaudid Inj) 0.5 mg Q3HWA PRN IV 05/03/17 19:45 05/17/17 19:44 05/05/17 16:16 0.5 MG Nicotine (Nicoderm Cq 21MG Patch) 1 patch QAM TD 05/04/17 09:00 06/03/17 08:59 05/05/17 08:03 1 PATCH Miscellaneous (Remove Nicoderm Patch) 1 ea HS N/A 05/04/17 21:00 06/03/17 20:59 05/04/17 20:23 1 EA Insulin Aspart (novoLOG ASPART) SLIDING SCALE If C... ACHS SC 05/03/17 21:00 06/02/17 20:59 05/04/17 18:05 8 UNITS Insulin Glargine (Lantus Solostar Pen) SEE PROTOCOL QDD SC 05/04/17 12:00 06/03/17 11:59 05/04/17 12:36 10 UNIT Ciprofloxacin (Cipro Tab) 500 mg Q12@0800,2000 PO 05/04/17 20:00 05/14/17 19:59 05/05/17 08:02 500 MG Vancomycin HCl (Vancomycin Oral Soln) 125 mg QID PO 05/04/17 13:00 05/18/17 12:59 05/05/17 16:33 125 MG Albuterol/ Ipratropium (Duoneb) 3 ml QIDR PRN INH 05/04/17 16:00 06/02/17 15:59 Heparin Sodium (Porcine) (Heparin Sq 5000 Unit/0.5ml) 5,000 unit Q8 SQ 05/04/17 14:00 06/03/17 13:59 05/05/17 14:33 5,000 UNIT Isosorbide Mononitrate (Imdur Ext Rel Tab) 60 mg QAM PO 05/04/17 13:15 06/03/17 13:14 05/05/17 08:04 60 MG Metoprolol Tartrate (Lopressor Tab) 100 mg BID PO 05/04/17 21:00 06/03/17 20:59 05/05/17 08:30 100 MG Potassium Chloride (Klor-Con Tab) 20 meq DAILY PO 05/05/17 09:00 06/04/17 08:59 Raspberry (Raspberry Syrup 5ml Cup) 5 ml QID PO 05/04/17 13:00 05/18/17 12:59 05/05/17 16:33 5 ML Al Hydroxide/Mg Hydroxide/ Lidocaine HCl/ Barcode Q8H PRN PO 05/05/17 10:00 06/04/17 09:59 Vancomycin HCl (Consult) 1 ea UD PRN N/A 05/05/17 13:42 06/04/17 13:41 Magnesium Oxide (Mag-Ox Tab) 400 mg BID PO 05/05/17 21:00 06/04/17 20:59 Vancomycin HCl 1000 mg/Sodium Chloride 270 ml @ 125 mls/hr Q12@0200,1400 IV 05/06/17 02:00 05/16/17 01:59
--- NOTE | 2017-05-05 18:55 | ECHOCARDIOGRAM REPORT ---
*NOTICE TO RECEIVING [employer] This information is strictly Confidential and protected under [place] law. [place] law prohibits you from making any further disclosure of this information unless further disclosure is expressly permitted by the written consent of the person to whom it pertains or is authorized by law. A general authorization for the release of medical or other information is not sufficient for this purpose. Hospital accepts no responsibility if the information is made available to any other person, INCLUDING THE PATIENT. Interpretation Summary * Name: MADISON LYON Study Date: 05/05/2017 03:47 PM BP: 129/71 mmHg * Patient Location: [facility]\S\N286\S\2 HR: 70 * : 1955 (M/d/yyyy) Gender: Male Height: 70 in * Age: 62 yrs Ethnicity: [place] Weight: 165 lb * Ordering Physician: Flavio Mejia MD * Performed By: Birdie Duncan * * Reason For Study: CHEST PAIN * BSA: 1.9 m2 * -- Conclusions -- * 1. Normal left ventricular size with hyperdynamic systolic function. EF 65-70%. No regional wall motion abnormalities. Mild concentric left ventricular hypertrophy. Type 1 diastolic dysfunction. * 2. No significant valvular abnormalities. * 3. Normal estimated right ventricular systolic pressure; RVSP 24 mmHg. * 4. No prior study available for comparison. Procedure Details * A complete two-dimensional transthoracic echocardiogram was performed (2D, M-mode, Doppler and color flow Doppler). Left Ventricle * The left ventricle is normal in size. * There is mild concentric left ventricular hypertrophy. * The left ventricle is hyperdynamic. * Ejection Fraction = 65-70%. * The left ventricular wall motion is normal at rest. Right Ventricle * The right ventricle is normal in size and function. * The right ventricular systolic function is normal as assessed by tricuspid annular plane systolic excursion (TAPSE) (normal >1.5 cm). Atria * The left atrium is borderline dilated. * Right atrial size is normal. * There is no evidence of atrial septal defect, but resolution does not allow assessment for a patent foramen ovale. Mitral Valve * The mitral valve is grossly normal. * There is mild mitral annular calcification. * There is no mitral valve stenosis. * There is trace mitral regurgitation. Tricuspid Valve * The tricuspid valve is not well visualized, but is grossly normal. * There is no tricuspid stenosis. * There is mild tricuspid regurgitation. Aortic Valve * The aortic valve is normal in structure and function. * The aortic valve is trileaflet. * No hemodynamically significant valvular aortic stenosis. * No aortic regurgitation is present. Pulmonic Valve * The pulmonary valve is inadequately visualized, but the Doppler data is adequate for interpretation. * There is no pulmonic valvular stenosis. * There is no significant pulmonary regurgitation. Great Vessels * The aortic root is normal size. * Ascending aorta of normal dimension * Aortic arch of normal dimension. Pericardium/Pleural * There is no pericardial effusion. Great Vessels * Normal inferior vena cava size and collapsability with sniff indicates a normal right atrial pressure of 3 mmHg Left Ventricular Diastolic Function * Grade I diastolic dysfunction, (abnormal relaxation pattern). MMode 2D Measurements and Calculations IVSd 1.3 cm IVSs 2.0 cm LVIDd 4.2 cm LVIDs 2.5 cm LVPWd 1.2 cm LVPWs 1.8 cm IVS/LVPW 1.1 FS 39.8 % EDV(Teich) 79.6 ml ESV(Teich) 23.3 ml EF(Teich) 70.8 % EDV(cubed) 75.4 ml ESV(cubed) 16.4 ml EF(cubed) 78.2 % % IVS thick 55.7 % % LVPW thick 47.2 % LV mass(C)d 192.6 grams LV mass(C)dI 100.1 grams/m\S\2 LV mass(C)s 200.4 grams LV mass(C)sI 104.2 grams/m\S\2 CO(Teich) 3.9 l/min CI(Teich) 2.0 l/min/m\S\2 SV(Teich) 56.4 ml SI(Teich) 29.3 ml/m\S\2 CO(cubed) 4.1 l/min CI(cubed) 2.1 l/min/m\S\2 SV(cubed) 58.9 ml SI(cubed) 30.6 ml/m\S\2 Ao root diam 3.5 cm Ao root area 9.7 cm\S\2 ACS 1.5 cm LA dimension 3.7 cm asc Aorta Diam 3.1 cm LA/Ao 1.0 LVOT diam 2.1 cm LVOT area 3.3 cm\S\2 LVAd ap4 27.1 cm\S\2 LVLd ap4 7.9 cm EDV(MOD-sp4) 77.2 ml LVAs ap4 13.2 cm\S\2 LVLs ap4 6.5 cm ESV(MOD-sp4) 22.7 ml EF(MOD-sp4) 70.6 % LVAd ap2 22.8 cm\S\2 LVLd ap2 7.3 cm EDV(MOD-sp2) 57.9 ml LVAs ap2 10.5 cm\S\2 LVLs ap2 5.7 cm ESV(MOD-sp2) 16.9 ml EF(MOD-sp2) 70.8 % CO(MOD-sp4) 3.8 l/min CI(MOD-sp4) 2.0 l/min/m\S\2 SV(MOD-sp4) 54.5 ml SI(MOD-sp4) 28.3 ml/m\S\2 CO(MOD-sp2) 2.8 l/min CI(MOD-sp2) 1.5 l/min/m\S\2 SV(MOD-sp2) 41.0 ml SI(MOD-sp2) 21.3 ml/m\S\2 Doppler Measurements and Calculations MV E max carolyn 99.0 cm/sec MV A max carolyn 108.2 cm/sec MV E/A 0.91 MV dec time 0.23 sec Ao V2 max 132.5 cm/sec Ao max PG 7.0 mmHg Ao max PG (full) 0.80 mmHg MARIZA(V,A) 3.1 cm\S\2 MARIZA(V,D) 3.1 cm\S\2 LV V1 max PG 6.2 mmHg LV V1 max 124.7 cm/sec TV E max carolyn 50.9 cm/sec PA V2 max 79.5 cm/sec PA max PG 2.5 mmHg TR max carolyn 230.8 cm/sec RVSP(TR) 24.3 mmHg RAP systole 3.0 mmHg
[2017-05-05] MEDS: MAGNESIUM OXIDE 400 MG TAB PO SCH (20:52)
[2017-05-05] MEDS: MIRTAZAPINE SOLTAB 15 MG PO SCH (20:54)
[2017-05-05] MEDS: PHENAZOPYRIDINE HCL 200 MG TAB PO SCH (21:16)
[2017-05-05 23:22] VITALS: BP 142/80; PULSE 67; TEMP 36.6; O2SAT 98
[2017-05-06] MEDS: VANCOMYCIN INJ 1,000 MG in SODIUM CHLORIDE 0.9% 250ML 250 ML IV SCH ×2 (01:54→13:54)
[2017-05-06] MEDS: HYDROmorphone INJ 1 MG/ML SYR IV PRN ×5 (02:17→21:27)
[2017-05-06 04:08] VITALS: BP 144/88; PULSE 68; TEMP 36.9; O2SAT 98
[2017-05-06 05:50] LABS: HEMATOCRIT 36.9 % (42-52); MEAN CELL VOLUME 92.9 fL (80-100); MEAN CORPUSCULAR HEMOGLOBIN 29.2 pg (25-34); MEAN CORPUSCULAR HGB CONC 31.4 g/dl (32-36); MEAN PLATELET VOLUME 10.6 fL (7.4-10.4); PLATELET COUNT 230 K/uL (130-400); RED BLOOD COUNT 3.97 M/uL (4.7-6.1); WHITE BLOOD COUNT 8.94 K/uL (4.8-10.8)
[2017-05-06 06:26] LABS: BUN/CREATININE RATIO 7.8 (10-20); CALCIUM 7.9 mg/dl (8.5-10.1); MAGNESIUM 1.9 mg/dl (1.8-2.4); POTASSIUM 4.1 mmol/L (3.5-5.1)
[2017-05-06 07:07] VITALS: BP 164/81; PULSE 63; TEMP 36.3; O2SAT 97
[2017-05-06] MEDS: BREO ELLIPTA: ORDER AWAITING ACTION SCH ×3 (07:38→23:07)
[2017-05-06] MEDS: TIOTROPIUM BROMIDE 5 PUFF/90 MCG INH INH SCH (07:51)
[2017-05-06] MEDS: NICOTINE 21 MG/24 HR TDSY TD SCH (07:51)
[2017-05-06] MEDS: CHOLESTYRAMINE LIGHT 4 GM PKT PO SCH ×4 (07:51→22:19)
[2017-05-06] MEDS: ENOXAPARIN 40 MG/0.4 ML SYR SQ SCH (07:51)
[2017-05-06] MEDS: NYSTATIN SUSP 500,000 U/5 ML UDC PO SCH ×4 (07:52→21:26)
[2017-05-06] MEDS: VANCOMYCIN HCL 125 MG/2.5ML SOLN PO SCH (07:52)
[2017-05-06] MEDS: RANITIDINE HCL 150 MG TAB PO SCH ×2 (07:52→21:21)
[2017-05-06] MEDS: CIPROFLOXACIN 500 MG TAB PO SCH (07:52)
[2017-05-06] MEDS: RASPBERRY SYRUP 5 ML UDP PO SCH ×4 (07:52→21:24)
[2017-05-06] MEDS: PHENAZOPYRIDINE HCL 200 MG TAB PO SCH ×3 (07:52→21:26)
[2017-05-06] MEDS: FLUOXETINE HCL 20 MG CAP PO SCH (07:52)
[2017-05-06] MEDS: POTASSIUM CHLORIDE 20 MEQ TABCR PO SCH (07:53)
[2017-05-06] MEDS: ASPIRIN 81 MG ECTAB PO SCH (07:53)
[2017-05-06] MEDS: MAGNESIUM OXIDE 400 MG TAB PO SCH (07:53)
[2017-05-06] MEDS: ISOSORBIDE MONONITRATE 60 MG TABCR PO SCH (07:53)
[2017-05-06] MEDS: METRONIDAZOLE / NSS 500 MG in PREMIXED NSS 100 ML IV SCH (07:53)
[2017-05-06] MEDS: METOPROLOL TARTRATE 100 MG TAB PO SCH ×2 (07:53→21:25)
[2017-05-06] MEDS: ATORVASTATIN 40 MG TAB PO SCH (07:53)
[2017-05-06] MEDS: HYDROCORTISONE 10 MG TAB PO SCH ×2 (07:54→21:21)
[2017-05-06] MEDS: INSULIN ASPART 100 UNITS/ML 3 ML PEN SC SCH ×4 (08:06→21:00)
[2017-05-06] MEDS: LISINOPRIL 5 MG TAB PO SCH (08:20)
--- NOTE | 2017-05-06 09:36 | Gastroenterology Progress Note ---
Progress Note Date of Service: May 06, 2017 Subjective Pt evaluation today including: conversation w/ patient, physical exam, chart review, lab review, review of studies, review of inpatient medication list Mr. Urbina is a 62 yr old male admitted for diarrhea who has a hx of UC, prior C-diff (2013), with recurrent C-diff. CT on arrival with some suggestion of ileal diverticulitis, bladder wall thickening. Urine culture now positive for coag neg staph. has been on Cipro/flagyl since admission and one dose of Vancomycin IV yesterday. Tx for C-diff with Vanco 125mg QID w/o improvement. On cholestyramine as well, even prior to admission, for chronic diarrhea. Approx 20 liquid BMs yesterday, about 10 liquid BMs today as well. Pt also c/o pain on swallowing. He says he has had this before and underwent EGD with dilation by Dr. Keith previously. Denies any hx of significant abdominal pain, even prior to admission. Review of Systems Constitutional: No fever ENT: No hearing loss Respiratory: No cough Cardiac: + chest pain ("heartburn with swallowing:) Abdomen: + diarrhea, + odynophagia, No pain, No nausea, No vomiting Male : No dysuria Neuro: No memory loss Psych: No depression symptoms Heme: No abnormal bleeding/bruising Endo: + fatigue (from poor sleep for 2 nights) Skin: No rash Medications Current Inpatient Medications Medications (Trade) Dose Ordered Sig/Tisha Route Start Time Stop Time Status Last Admin Dose Admin Alprazolam (Xanax Tab) 0.5 mg HS PRN PO 05/03/17 13:00 06/02/17 12:59 Aspirin (Ecotrin Tab) 81 mg QAM PO 05/04/17 09:00 06/03/17 08:59 05/06/17 07:53 81 MG Atorvastatin Calcium (Lipitor Tab) 80 mg DAILY PO 05/04/17 09:00 06/03/17 08:59 05/06/17 07:53 80 MG Fluoxetine HCl (Prozac Cap) 20 mg QAM PO 05/04/17 09:00 06/03/17 08:59 05/06/17 07:52 20 MG Hydrocortisone (Cortef Tab) 20 mg QAM PO 05/04/17 09:00 06/03/17 08:59 05/06/17 07:54 20 MG Hydroxyzine HCl (Vistaril Tab) 50 mg HSZ PRN PO 05/03/17 13:00 06/02/17 12:59 Nystatin (Mycostatin Susp) 5 ml QID PO 05/03/17 13:00 05/13/17 12:59 05/06/17 07:52 5 ML Tiotropium [place] (Spiriva Handihaler Inhaler) 1 puff DAILY INH 05/04/17 09:00 06/03/17 08:59 05/06/17 07:51 1 PUFF Cholestyramine Resin (Questran Powder Light) 4 gm QID@1000,1400,1800,2200 PO 05/03/17 18:00 06/02/17 17:59 05/06/17 07:51 4 GM Miscellaneous Information (Order Awaiting Action) 1 ea QS N/A 05/03/17 16:00 06/02/17 15:59 Mirtazapine (Remeron Solutab) 30 mg HS PO 05/03/17 21:00 06/02/17 20:59 05/05/17 20:54 30 MG Glucose (Glucose 40% Gel) 15-30 GRAMS 15 GRAMS... UD PRN PO 05/03/17 13:00 06/02/17 12:59 Glucose (Glucose Chew Tab) 4-8 Tablets 4 Tabl... UD PRN PO 05/03/17 13:00 06/02/17 12:59 Dextrose (Dextrose 50% 50ML Syringe) 25-50ML OF 50% DW IV FOR... UD PRN IV 05/03/17 13:00 06/02/17 12:59 Glucagon (Glucagon Inj) 1 mg UD PRN SQ 05/03/17 13:00 06/02/17 12:59 Miscellaneous Information (Consult Glycemic Management Pharmacy) 1 ea UD PRN N/A 05/03/17 14:26 06/02/17 14:25 Ondansetron HCl (Zofran Inj) 4 mg Q6H PRN IV 05/03/17 13:30 06/02/17 13:29 05/05/17 08:14 4 MG Metronidazole 500 mg/Prmx 100 ml @ 100 mls/hr Q8H IV 05/03/17 16:00 05/17/17 15:59 05/06/17 07:53 100 MLS/HR Hydrocortisone (Cortef Tab) 10 mg HS PO 05/03/17 21:00 06/02/17 20:59 05/05/17 20:50 10 MG Hydromorphone HCl (Dilaudid Inj) 0.5 mg Q3HWA PRN IV 05/03/17 19:45 05/17/17 19:44 05/06/17 02:17 0.5 MG Nicotine (Nicoderm Cq 21MG Patch) 1 patch QAM TD 05/04/17 09:00 06/03/17 08:59 05/06/17 07:51 1 PATCH Miscellaneous (Remove Nicoderm Patch) 1 ea HS N/A 05/04/17 21:00 06/03/17 20:59 05/05/17 20:50 1 EA Insulin Aspart (novoLOG ASPART) SLIDING SCALE If C... ACHS SC 05/03/17 21:00 06/02/17 20:59 05/04/17 18:05 8 UNITS Insulin Glargine (Lantus Solostar Pen) SEE PROTOCOL QDD SC 05/04/17 12:00 06/03/17 11:59 05/04/17 12:36 10 UNIT Ciprofloxacin (Cipro Tab) 500 mg Q12@0800,2000 PO 05/04/17 20:00 05/14/17 19:59 05/06/17 07:52 500 MG Vancomycin HCl (Vancomycin Oral Soln) 125 mg QID PO 05/04/17 13:00 05/18/17 12:59 05/06/17 07:52 125 MG Albuterol/ Ipratropium (Duoneb) 3 ml QIDR PRN INH 05/04/17 16:00 06/02/17 15:59 Isosorbide Mononitrate (Imdur Ext Rel Tab) 60 mg QAM PO 05/04/17 13:15 06/03/17 13:14 05/06/17 07:53 60 MG Metoprolol Tartrate (Lopressor Tab) 100 mg BID PO 05/04/17 21:00 06/03/17 20:59 05/06/17 07:53 100 MG Potassium Chloride (Klor-Con Tab) 20 meq DAILY PO 05/05/17 09:00 06/04/17 08:59 Raspberry (Raspberry Syrup 5ml Cup) 5 ml QID PO 05/04/17 13:00 05/18/17 12:59 05/06/17 07:52 5 ML Al Hydroxide/Mg Hydroxide/ Lidocaine HCl/ Barcode Q8H PRN PO 05/05/17 10:00 06/04/17 09:59 05/05/17 17:39 24 ML Vancomycin HCl (Consult) 1 ea UD PRN N/A 05/05/17 13:42 06/04/17 13:41 Magnesium Oxide (Mag-Ox Tab) 400 mg BID PO 05/05/17 21:00 06/04/17 20:59 05/06/17 07:53 400 MG Vancomycin HCl 1000 mg/Sodium Chloride 270 ml @ 125 mls/hr Q12@0200,1400 IV 05/06/17 02:00 05/16/17 01:59 05/06/17 01:54 125 MLS/HR Ranitidine HCl (zANTac TAB) 150 mg BID PO 05/05/17 21:00 06/03/17 08:59 05/06/17 07:52 150 MG Lisinopril (Zestril Tab) 5 mg QAM PO 05/06/17 09:00 06/05/17 08:59 05/06/17 08:20 5 MG Enoxaparin Sodium (Lovenox Inj) 40 mg QAM SQ 05/06/17 09:00 06/05/17 08:59 05/06/17 07:51 40 MG Phenazopyridine HCl (Pyridium Tab) 200 mg TID PO 05/05/17 21:00 05/07/17 20:59 05/06/17 07:52 200 MG Objective Vital Signs Date Time Temp Pulse Resp B/P (MAP) Pulse Ox O2 Delivery O2 Flow Rate FiO2 05/06/17 08:15 Room Air 05/06/17 07:07 36.3 63 16 164/81 (108) 97 Room Air 05/06/17 04:08 36.9 68 18 144/88 (106) 98 Room Air 05/06/17 00:00 Room Air 05/05/17 23:22 36.6 67 18 142/80 (100) 98 Room Air 05/05/17 20:00 Room Air 05/05/17 16:00 Room Air 05/05/17 14:59 36.4 70 18 129/71 (90) 96 Room Air 05/05/17 12:00 Room Air 05/05/17 11:37 36.3 62 20 119/72 (88) 97 Room Air Physical Exam General Appearance: + mild distress (mostly very frustrated) ENT: pharynx normal Neck: supple, thyroid normal, no JVD Respiratory/Chest: lungs clear Cardiovascular: regular rate, rhythm, no JVD, no murmur Abdomen: soft, + tenderness (tender in the right mid abdomen) Extremities: non-tender Neurologic/Psych: alert, normal mood/affect, oriented x 3 Skin: no jaundice Laboratory Results Last 24 Hours Test 05/05/17 11:35 05/05/17 15:05 05/05/17 16:29 05/05/17 20:44 Bedside Glucose 124 mg/dl 138 mg/dl 133 mg/dl 118 mg/dl Test 05/06/17 05:24 05/06/17 07:25 White Blood Count 8.94 K/uL Red Blood Count 3.97 M/uL Hemoglobin 11.6 g/dL Hematocrit 36.9 % Mean Corpuscular Volume 92.9 fL Mean Corpuscular Hemoglobin 29.2 pg Mean Corpuscular Hemoglobin Concent 31.4 g/dl RDW Standard Deviation 50.7 fL RDW Coefficient of Variation 14.8 % Platelet Count 230 K/uL Mean Platelet Volume 10.6 fL Sodium Level 147 mmol/L Potassium Level 4.1 mmol/L Chloride Level 120 mmol/L Carbon Dioxide Level 20 mmol/L Anion Gap 7.0 mmol/L Blood Urea Nitrogen 8 mg/dl Creatinine 1.00 mg/dl Est Creatinine Clear Calc Drug Dose 79.1 ml/min Estimated GFR () 93.1 Estimated GFR (Non- 80.3 BUN/Creatinine Ratio 7.8 Random Glucose 133 mg/dl Calcium Level 7.9 mg/dl Magnesium Level 1.9 mg/dl Bedside Glucose 104 mg/dl CT abd/pelvis on arrival: 1. No renal, ureteral, or bladder calculi identified 2. No evidence of bowel obstruction. No evidence of free air 3. Bladder wall thickening. Clinical correlation in regards to a cystitis is recommended 4. Subtle infiltration of the mesenteric fat within the right lower quadrant. This is a nonspecific finding which may be secondary to a subtle ileal diverticulitis 5. Normal appendix Assessment and Plan Mr. Urbina is a 62 yr old male with C-diff diarrhea. Though CT with some suggestion of ileal diverticulitis, his lack of significant abdominal pain argues against this. His symptoms are much more suggestive of C- diff, UC and chronic microscopic colitis. Plan: 1. Increase Vancomycin to 250mg QID. 2. Would decrease diet to clear liquids until diarrhea improves. 3. Stool culture has been (-). Will also check a stool for giardia. 4. Decrease antibiotic use. Would not cover diverticulitis. Understand urine culture is positive so will need to cover that. 5. Continue cholestyramine 6. Regarding odynophagia, EGD in Dec [address] Keith for similar symptoms was normal. Would continue PPI and treat symptomatically with Carafate 1gram QID, though would wait until diarrhea improves before starting Carafate as may interfere with absorption of Vancomycin. 7. Colonoscopy in Dec 2016 and again in January 2017 for chronic diarrhea, both consistent with collagenous colitis. At this point, no plan to repeat the colonoscopy. I saw and evaluated the patient. He notes worsenng diarrhea over the last 48 hours Recomendations increase vanco to 250 qid would not offer EGD for present symptoms.
--- NOTE | 2017-05-06 11:12 | Medical Consult ---
Consultation Date of Consultation: May 06, 2017. Attending Physician: Sabrina Shankar DO Reason for Consultation: Recent Levaquin for pyelo, + C. Diff, diverticulitis, dysuria, Oxacillin resistant [employer] in urine, abx help History of Present Illness Patient is a 62-year-old male who presented to the emergency department with complaints of abdominal pain around his umbilical area and left lower quadrant that started 1 day prior to admission. The patient was recently being treated for possible bilateral pyelonephritis with p.o. Levaquin. He completed 7 days of Levaquin, and quickly developed diarrhea, nausea, vomiting, and abdominal pain. The patient does have history of ulcerative colitis, and has had flares in the past. He follows with Gastroenterology at [facility] in [place] for his GI problems. Upon current admission, the patient's white blood cell count was 18.19. His creatinine was 3.40. He did have a urinalysis which showed 4+ bacteria, greater than 30 white blood cells, and small leukocyte esterase. Blood cultures have shown no growth. Stool culture showed no E coli or Salmonella, but C diff toxin was positive. His urine culture is growing coag-negative staph resistant to oxacillin only. He is currently on IV vancomycin, p.o. vancomycin 250 mg q.i.d., IV Cipro, and IV Flagyl. The patient continues to have very severe diarrhea. He did have an abdominal/pelvic CT scan completed which showed no renal, ureteral, or bladder calculi identified, no bowel obstruction, bladder wall thickening, and subtle infiltration of the mesenteric fat within the right lower quadrant which is nonspecific. Past Medical/Surgical History Medical Problems: (1) Abdominal pain Status: Acute (2) Failure of outpatient treatment Status: Acute (3) Pyelonephritis Status: Acute (4) Sepsis Status: Acute (5) Sepsis Status: Acute Medical Problems: (1) Adrenal insufficiency (2) ARF (acute renal failure) (3) Diabetes (4) Hypercholesteremia (5) Hypertension (6) Major depressive disorder, recurrent episode with anxious distress (7) Ulcerative colitis Surgical Problems: (1) H/O percutaneous transluminal coronary angioplasty (2) Stented coronary artery Family History Cancer Diabetes mellitus Heart disease Hypertension Noncontributory Social History Smoking Status: Current Every Day Smoker Drug Use: none Marital Status: Housing Status: lives with family Occupation Status: retired Allergies Coded Allergies: Azathioprine (Verified Adverse Reaction, Unknown, RENAL COMPLICATIONS, 10/09) Home Medications Reported Home Medications Medications Dose Route/Sig Max Daily Dose Days Date Category Dose Instructions Mag64 (Magnesium Chloride) 535 Mg Tab 8 Tabs PO BID 05/03/17 Reported Nystatin 5 Ml Susp 5 Ml PO QID 05/03/17 Reported Humalog (Insulin Lispro (Human)) 100 Unit/Ml Inj SC UD 05/03/17 Reported SLIDING SCALE Lomotil (Diphenoxylate HCl/Atropine) Tab 1 Tab PO TID 05/03/17 Reported Ferrous Sulfate 325 Mg Tab 1 Tab PO DAILY 05/03/17 Reported Ventolin Hfa (Albuterol) 200 Puffs/19880 Mcg Aers 3-4 Puffs INH QID PRN 04/22/17 Rx Duoneb (Ipratropium-Albuterol) 3 Ml Nebu 1 Treatment INH QID PRN 04/22/17 Rx Spiriva Handihaler (Tiotropium [place]) 30 Puff/540 Mcg Aerp 1 Cap INH DAILY 04/20/17 Reported Lantus (Insulin Glargine) 100 Unit/Ml Inj 10-20 Units SC UD 04/20/17 Reported USE DIRECTED Remeron Soltab (Mirtazapine) 30 Mg Soltab 30 Mg PO HS 04/20/17 Reported Diflucan (Fluconazole) 100 Mg Tab 100 Mg PO DAILY PRN 04/20/17 Reported Potassium Chloride Er (Potassium Chloride Microencaps) 20 Meq Tab 1 Tab PO DAILY 30 02/28/17 Rx Prozac (Fluoxetine Hcl) 20 Mg Cap 1 Cap PO QAM 30 02/28/17 Rx Hydroxyzine HCl 25 Mg Tab 50 Mg PO HSZ PRN 30 02/28/17 Rx Breo Ellipta (Fluticasone Furoate-Vilanterol) 1 Inh Inh 1 Inha PO DAILY 02/19/17 Reported Lipitor (Atorvastatin Calcium) 80 Mg Tab 1 Tab PO DAILY 30 02/19/17 Reported Cortef (Hydrocortisone) 10 Mg Tab 10 Tab PO UD 02/19/17 Reported 1 TAB LET EVERY EVENING. INCREASE DIRECTED FOR ILLNESS Questran (Cholestyramine) 4 Gm Pow 4 Gm PO QID 02/19/17 Reported Dexamethasone Sodium Phos (Dexamethasone Sod Phos) 4 Mg/Ml Inj 1 Ml IM DIRECTED PRN 02/19/17 Reported Xanax (Alprazolam) 0.5 Mg Tab 0.5 Mg PO HS PRN 04/08/16 Reported Zestril (Lisinopril) 5 Mg Tab 5 Mg PO QAM 04/08/16 Reported Imdur Ext Rel (Isosorbide Mononitrate) 60 Mg Ertab 60 Mg PO QAM 04/08/16 Reported Lopressor (Metoprolol Tartrate) 100 Mg Tab 100 Mg PO BID 04/08/16 Reported Aspirin Chewable (Aspirin) 81 Mg Chew 81 Mg PO QAM 04/08/16 Reported Cortef (Hydrocortisone) 10 Mg Tab 20 Mg PO QAM 04/08/16 Reported 2 TAB LETS EVERY MORNINIG. INCREASE DIRECTED WITH ILLNESS Zantac (Ranitidine HCl) 150 Mg Tab 150 Mg PO BID 04/08/16 Reported Current Inpatient Medications Current Inpatient Medications Medications (Trade) Dose Ordered Sig/Tisha Route Start Time Stop Time Status Last Admin Dose Admin Alprazolam (Xanax Tab) 0.5 mg HS PRN PO 05/03/17 13:00 06/02/17 12:59 Aspirin (Ecotrin Tab) 81 mg QAM PO 05/04/17 09:00 06/03/17 08:59 05/06/17 07:53 81 MG Atorvastatin Calcium (Lipitor Tab) 80 mg DAILY PO 05/04/17 09:00 06/03/17 08:59 05/06/17 07:53 80 MG Fluoxetine HCl (Prozac Cap) 20 mg QAM PO 05/04/17 09:00 06/03/17 08:59 05/06/17 07:52 20 MG Hydrocortisone (Cortef Tab) 20 mg QAM PO 05/04/17 09:00 06/03/17 08:59 05/06/17 07:54 20 MG Hydroxyzine HCl (Vistaril Tab) 50 mg HSZ PRN PO 05/03/17 13:00 06/02/17 12:59 Nystatin (Mycostatin Susp) 5 ml QID PO 05/03/17 13:00 05/13/17 12:59 05/06/17 07:52 5 ML Tiotropium [place] (Spiriva Handihaler Inhaler) 1 puff DAILY INH 05/04/17 09:00 06/03/17 08:59 05/06/17 07:51 1 PUFF Cholestyramine Resin (Questran Powder Light) 4 gm QID@1000,1400,1800,2200 PO 05/03/17 18:00 06/02/17 17:59 05/06/17 07:51 4 GM Miscellaneous Information (Order Awaiting Action) 1 ea QS N/A 05/03/17 16:00 06/02/17 15:59 Mirtazapine (Remeron Solutab) 30 mg HS PO 05/03/17 21:00 06/02/17 20:59 05/05/17 20:54 30 MG Glucose (Glucose 40% Gel) 15-30 GRAMS 15 GRAMS... UD PRN PO 05/03/17 13:00 06/02/17 12:59 Glucose (Glucose Chew Tab) 4-8 Tablets 4 Tabl... UD PRN PO 05/03/17 13:00 06/02/17 12:59 Dextrose (Dextrose 50% 50ML Syringe) 25-50ML OF 50% DW IV FOR... UD PRN IV 05/03/17 13:00 06/02/17 12:59 Glucagon (Glucagon Inj) 1 mg UD PRN SQ 05/03/17 13:00 06/02/17 12:59 Miscellaneous Information (Consult Glycemic Management Pharmacy) 1 ea UD PRN N/A 05/03/17 14:26 06/02/17 14:25 Ondansetron HCl (Zofran Inj) 4 mg Q6H PRN IV 05/03/17 13:30 06/02/17 13:29 05/05/17 08:14 4 MG Metronidazole 500 mg/Prmx 100 ml @ 100 mls/hr Q8H IV 05/03/17 16:00 05/17/17 15:59 05/06/17 07:53 100 MLS/HR Hydrocortisone (Cortef Tab) 10 mg HS PO 05/03/17 21:00 06/02/17 20:59 05/05/17 20:50 10 MG Hydromorphone HCl (Dilaudid Inj) 0.5 mg Q3HWA PRN IV 05/03/17 19:45 05/17/17 19:44 05/06/17 02:17 0.5 MG Nicotine (Nicoderm Cq 21MG Patch) 1 patch QAM TD 05/04/17 09:00 06/03/17 08:59 05/06/17 07:51 1 PATCH Miscellaneous (Remove Nicoderm Patch) 1 ea HS N/A 05/04/17 21:00 06/03/17 20:59 05/05/17 20:50 1 EA Insulin Aspart (novoLOG ASPART) SLIDING SCALE If C... ACHS SC 05/03/17 21:00 06/02/17 20:59 05/04/17 18:05 8 UNITS Insulin Glargine (Lantus Solostar Pen) SEE PROTOCOL QDD SC 05/04/17 12:00 06/03/17 11:59 05/04/17 12:36 10 UNIT Ciprofloxacin (Cipro Tab) 500 mg Q12@0800,2000 PO 05/04/17 20:00 05/14/17 19:59 05/06/17 07:52 500 MG Albuterol/ Ipratropium (Duoneb) 3 ml QIDR PRN INH 05/04/17 16:00 06/02/17 15:59 Isosorbide Mononitrate (Imdur Ext Rel Tab) 60 mg QAM PO 05/04/17 13:15 06/03/17 13:14 05/06/17 07:53 60 MG Metoprolol Tartrate (Lopressor Tab) 100 mg BID PO 05/04/17 21:00 06/03/17 20:59 05/06/17 07:53 100 MG Potassium Chloride (Klor-Con Tab) 20 meq DAILY PO 05/05/17 09:00 06/04/17 08:59 Raspberry (Raspberry Syrup 5ml Cup) 5 ml QID PO 05/04/17 13:00 05/18/17 12:59 05/06/17 07:52 5 ML Al Hydroxide/Mg Hydroxide/ Lidocaine HCl/ Barcode Q8H PRN PO 05/05/17 10:00 06/04/17 09:59 05/05/17 17:39 24 ML Vancomycin HCl (Consult) 1 ea UD PRN N/A 05/05/17 13:42 06/04/17 13:41 Magnesium Oxide (Mag-Ox Tab) 400 mg BID PO 05/05/17 21:00 7/13/17 20:59 05/06/17 07:53 400 MG Vancomycin HCl 1000 mg/Sodium Chloride 270 ml @ 125 mls/hr Q12@0200,1400 IV 05/06/17 02:00 05/16/17 01:59 05/06/17 01:54 125 MLS/HR Ranitidine HCl (zANTac TAB) 150 mg BID PO 05/05/17 21:00 06/03/17 08:59 05/06/17 07:52 150 MG Lisinopril (Zestril Tab) 5 mg QAM PO 05/06/17 09:00 06/05/17 08:59 05/06/17 08:20 5 MG Enoxaparin Sodium (Lovenox Inj) 40 mg QAM SQ 05/06/17 09:00 06/05/17 08:59 05/06/17 07:51 40 MG Phenazopyridine HCl (Pyridium Tab) 200 mg TID PO 05/05/17 21:00 05/07/17 20:59 05/06/17 07:52 200 MG Vancomycin HCl (Vancomycin Oral Soln) 250 mg QID PO 05/06/17 13:00 05/18/17 12:59 Review of Systems Constitutional: + fever, + chills, + sweats ([employer]- now resolved) Eyes: No worsening of vision ENT: + problem reported (burning in throat/chest (heart burn)), No hearing loss , No sore throat Respiratory: No cough, No shortness of breath Cardiovascular: + chest pain (burning mid-sternal) Abdomen: + pain, + nausea, + diarrhea (severe, constant, watery), + problem reported (LLQ pain) Musculoskeletal: No joint pain, No muscle pain Genitourinary - Male: + dysuria, No hematuria Neurologic: No numbness/tingling Integumentary: No rash, No itch, No new/changing skin lesions Physical Exam Date Time Temp Pulse Resp B/P (MAP) Pulse Ox O2 Delivery O2 Flow Rate FiO2 05/06/17 08:15 Room Air 05/06/17 07:07 36.3 63 16 164/81 (108) 97 Room Air 05/06/17 04:08 36.9 68 18 144/88 (106) 98 Room Air 05/06/17 00:00 Room Air 05/05/17 23:22 36.6 67 18 142/80 (100) 98 Room Air 05/05/17 20:00 Room Air 05/05/17 16:00 Room Air 05/05/17 14:59 36.4 70 18 129/71 (90) 96 Room Air 05/05/17 12:00 Room Air 05/05/17 11:37 36.3 62 20 119/72 (88) 97 Room Air General Appearance: WD/WN, no apparent distress Head: normocephalic, atraumatic Eyes: normal inspection, sclerae normal ENT: hearing grossly normal Neck: supple, trachea midline Respiratory/Chest: chest non-tender, lungs clear, normal breath sounds, no respiratory distress, no accessory muscle use Cardiovascular: regular rate, rhythm, no murmur Abdomen/GI: normal bowel sounds, soft, + tenderness (LLQ and epigastric pain) Extremities/Musculoskelatal: normal inspection, normal range of motion Neurologic/Psych: alert, normal mood/affect, oriented x 3 Skin: normal color, warm/dry, no rash Laboratory Results RUN DATE: 05/06/17 [facility] LAB PAGE 1 RUN TIME: 1003 Specimen Inquiry PATIENT: MADISON LYON Karma LOC: [facility] # : [id number] AGE/SX: 62/M ROOM: [id number] REG : 05/03/[address]: Sabrina Shankar DO : 1955 BED: 2 DIS : STATUS: ADM IN TLOC: SPEC #: [id number] THOR: 05/03/17 STATUS: COMP REQ #: [id number] RECD: 05/03/[address] [facility] [address]: Ricky Mosquera M.D. SOURCE: UR, CC ENTR: 05/03/[address] [facility] [address]: Leoncio Rios MD SPDESC: Tony Lin D.O. ORDERED: CULTURE EMILIE COMMENTS: Has Specimen Been Obtained/Collected? Y Procedure Result Verified Site URINE CULTURE Final 05/06/17-1003 Organism 1 COAG NEG STAPHYLOCOCCUS COLONY COUNT 75,000 CFU/ml SENS SENSITIVITY TO FOLLOW +MIX PLUS LOW COUNTS OTHER MIXED TOMAS 1. COAG NEG STAPHYLOCOCCUS Target Route Dose RX AB Cost M.I.C. IQ ------ ----- ------ -- ------ -------- - ------ TRIMET/SULFA S <=0.5/ 9.5 * OXACILLIN R >2 VANCOMYCIN S 2 TETRACYCLINE S <=4 DAPTOMYCIN S <=0.5 NITROFURANTOIN S <=32 S = SENSITIVE I = INTERMEDIATE R = RESISTANT Item Value Date Time Urine Culture - Final Complete 05/03/17 1133 Urine , Clean Catch Coag Neg Staphylococcus C.difficile Toxin B Gene (PCR) - Final Complete 05/03/17 1133 Stool Positive for C. difficile toxin B gene Shiga Toxin Test - Final Complete 05/03/17 1133 Stool No E. Coli shiga toxin 1 or shiga tox... Blood Culture - Preliminary Resulted 05/03/17 1042 Blood NO GROWTH TO DATE. Blood Culture - Preliminary Resulted 05/03/17 1035 Blood NO GROWTH TO DATE. Last 24 Hours Test 05/05/17 11:35 05/05/17 15:05 05/05/17 16:29 05/05/17 20:44 Bedside Glucose 124 mg/dl 138 mg/dl 133 mg/dl 118 mg/dl Test 05/06/17 05:24 05/06/17 07:25 White Blood Count 8.94 K/uL Red Blood Count 3.97 M/uL Hemoglobin 11.6 g/dL Hematocrit 36.9 % Mean Corpuscular Volume 92.9 fL Mean Corpuscular Hemoglobin 29.2 pg Mean Corpuscular Hemoglobin Concent 31.4 g/dl RDW Standard Deviation 50.7 fL RDW Coefficient of Variation 14.8 % Platelet Count 230 K/uL Mean Platelet Volume 10.6 fL Sodium Level 147 mmol/L Potassium Level 4.1 mmol/L Chloride Level 120 mmol/L Carbon Dioxide Level 20 mmol/L Anion Gap 7.0 mmol/L Blood Urea Nitrogen 8 mg/dl Creatinine 1.00 mg/dl Est Creatinine Clear Calc Drug Dose 79.1 ml/min Estimated GFR () 93.1 Estimated GFR (Non- 80.3 BUN/Creatinine Ratio 7.8 Random Glucose 133 mg/dl Calcium Level 7.9 mg/dl Magnesium Level 1.9 mg/dl Bedside Glucose 104 mg/dl Assessment & Plan Patient with history of ulcerative colitis now with Coag-negative staph UTI ( with recent hx of pyelonephritis), and positive C. Diff toxin. The patient was treated with Levaquin for pyelonephritis. He is currently on IV Vancomycin, PO Vancomycin 250 mg QID, Cipro, and Metronidazole. The patient has difficulty with pill forms of medication, so he requested either to continue IV therapy or be given a liquid for his [facility] [employer] [facility] UTI. The patient is tolerating IV Vancomycin, but feel that he could also transition to PO Bactrim suspension. He will need continued therapy with PO Vancomycin 250 mg QID until his diarrhea improves. Will D/C Cipro- agree with GI that likely do not need continued empiric treatment for diverticulitis, and will also D/C Flagyl- PO Vancomycin 250 mg QID will be adequate for C. Diff treatment. We will follow, and I will discuss with Dr. Shankar. PROVIDER ADDENDUM: Pt. examined and reviewed with Ms. Cisneros. Agree with above assessment.
--- NOTE | 2017-05-06 12:05 | Progress Note ---
Medicine Progress Note Date & Time of Visit: May 06, 2017 at 11:11. Subjective 61 year old male with history of Ulcerative Colitis, Chronic Intermittent Prednisone Use, Adrenal Insufficiency, CAD, DM 2 on Insulin, p/w c-diff colitis after Levaquin use last week. -persistent loose stools today -denies fevers chills -states heartburn is somewhat improved but still there -noted urine orange from the pyridium -pt would really like to have an EGD while hospitalized if at all indicated; will discuss this with GI team as he will miss his outpatient appointment. - at bedside and all questions answered this morning. Objective Last 8 Hrs Date Time Temp Pulse Resp B/P (MAP) Pulse Ox O2 Delivery O2 Flow Rate FiO2 05/06/17 08:15 Room Air 05/06/17 07:07 36.3 63 16 164/81 (108) 97 Room Air 05/06/17 04:08 36.9 68 18 144/88 (106) 98 Room Air Physical Exam: GEN: WNWD, in no acute distress, alert and appropriate HEENT: NC/AT, normal sclerae CARDIO: reg rate, S1/2 heard without m/g/r LUNGS: CTA bilaterally, no crackles, rales or wheezes, good diaphragmatic excursion ABD: soft, TTP in LLQ/LUQ. Some guarding present on R side, also. Non-distended , no rebound. +BS present EXTREMITY: RP and DP palpable 2+ bilat, no LE swelling or edema, extremities are warm and well-perfused NEURO: CN 2-12 grossly intact, no gross focal deficits. MUSC: moves all extremities equally SKIN: warm and dry. Some erythema noted across the face consistent with poss rosacea. Laboratory Results: Last 24 Hours Test 05/05/17 11:35 05/05/17 15:05 05/05/17 16:29 05/05/17 20:44 Bedside Glucose 124 mg/dl 138 mg/dl 133 mg/dl 118 mg/dl Test 05/06/17 05:24 05/06/17 07:25 White Blood Count 8.94 K/uL Red Blood Count 3.97 M/uL Hemoglobin 11.6 g/dL Hematocrit 36.9 % Mean Corpuscular Volume 92.9 fL Mean Corpuscular Hemoglobin 29.2 pg Mean Corpuscular Hemoglobin Concent 31.4 g/dl RDW Standard Deviation 50.7 fL RDW Coefficient of Variation 14.8 % Platelet Count 230 K/uL Mean Platelet Volume 10.6 fL Sodium Level 147 mmol/L Potassium Level 4.1 mmol/L Chloride Level 120 mmol/L Carbon Dioxide Level 20 mmol/L Anion Gap 7.0 mmol/L Blood Urea Nitrogen 8 mg/dl Creatinine 1.00 mg/dl Est Creatinine Clear Calc Drug Dose 79.1 ml/min Estimated GFR () 93.1 Estimated GFR (Non- 80.3 BUN/Creatinine Ratio 7.8 Random Glucose 133 mg/dl Calcium Level 7.9 mg/dl Magnesium Level 1.9 mg/dl Bedside Glucose 104 mg/dl Diagnostic Imaging: TTE 05/05: -- Conclusions -- * 1. Normal left ventricular size with hyperdynamic systolic function. EF 65 -70%. No regional wall motion abnormalities. Mild concentric left ventricular hypertrophy. Type 1 diastolic dysfunction. * 2. No significant valvular abnormalities. * 3. Normal estimated right ventricular systolic pressure; RVSP 24 mmHg. * 4. No prior study available for comparison. Assessment & Plan 61 year old male with history of Ulcerative Colitis, Chronic Intermittent Prednisone Use, Adrenal Insufficiency, CAD, DM 2 on Insulin, p/w c-diff colitis after Levaquin use last week. 1. Abdominal pain 2/2 C-diff colitis: etiology includes but not limited to recent abx use in setting of prior c-diff infections and exposure to who is currently c-diff positive. Also, in the setting of UC, there may be a component of UC flare here, however, the pain with prior flares is more chronic than the discomfort he is currently experiencing. LLQ/LUQ persists on exam and pt noted to have some chronic discomfort in setting of UC. Vanc PO increased to 500mg PO QID per guidelines for lack of clinical improvement within 48 hours on the 125mg QID dosage. Cont to avoid milk products in setting of diarrhea and heartburn. Of note, patient has bacteriuria with UCx pending, currently growing [employer] that is oxacillin-resistant so Vanc IV was started; prior culture results revealed a FQ-sensitive strain of E coli. ID consulted today and is OK with IV Vanc but can transition to PO Bactrim. Will plan to do this once diarrhea slows down. Added pyridium yesterday for comfort. This heartburn has persisted in the setting of prior esophageal strictures and dysphagia in the past. GI cocktail is somewhat helpful. Ranitidine increased to BID with resolution of CRISTIAN. GI team aware of the heartburn and dysphagia which has worsened here in the hospital-prior PPI therapy stopped during January hospitalization. CT also revealed a poss ileal diverticulitis; per GI will not cover with abx for this so Flagyl/Cipro were stopped today. 2. UTI-recently treated for bilateral pyelonephritis in the last two weeks. Presented this admission with some dysuria, and has suprapubic tenderness on exam as well as bladder wall thickening on CT scan and a positive UA. No evidence of pyelo present as he is afebrile, without CVA tenderness and there is no evidence of hydronephrosis or other pyelo findings on the CT scan performed yesterday. Cont with Vanc IV until diarrhea slows down and then will transition to Bactrim PO per ID recommendations. 3. Persistent hypocalcemia-poss 2/2 hypomagnesemia related to diarrhea vs adrenal insufficiency vs other. Will give additional replacement again today and will check 25OH, Phos, ionized Ca, and PTH. 4. Atypical chest discomfort likely related to heartburn. 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 TTE was within normal limits. 5. UC-pt takes hydrocortisone regularly to control flares and is on Questran QID for help w chronic liquid stools. Recent colonoscopy was 02/20/17 while he was hospitalized for a UC flare. 6. Chronic adrenal insufficiency-cont home dose of hydrocortisone. 7. CAD-stable, no active ACS or concerning symptoms. Cont medical management with ASA, statin, restarted Imdur yest which may also help with atypical chest discomfort above. Restarted Lopressor yesterday 8. DMII: Lantus/ISS per pharmacy recs. Sugar is controlled. 9. HTN-restarting lisinopril now with resolution of CRISTIAN. 10. COPD-not oxygen-dependent and is stable without wheezing on exam. Cont Duonebs PRN and Spiriva daily. Nicoderm patch to control cravings to smoke. 11. Tobacco abuse-Nicotine replacement given. 12. Iron-deficiency anemia-holding outpatient iron supplementation now. DVT proph-Lovenox 40 FULL CODE Dispo: med/surg Sabrina Shankar DO [facility] Hospitalist Consultants: GI, Cards, ID Current Inpatient Medications: Current Inpatient Medications Medications (Trade) Dose Ordered Sig/Tisha Route Start Time Stop Time Status Last Admin Dose Admin Alprazolam (Xanax Tab) 0.5 mg HS PRN PO 05/03/17 13:00 06/02/17 12:59 Aspirin (Ecotrin Tab) 81 mg QAM PO 05/04/17 09:00 06/03/17 08:59 05/06/17 07:53 81 MG Atorvastatin Calcium (Lipitor Tab) 80 mg DAILY PO 05/04/17 09:00 06/03/17 08:59 05/06/17 07:53 80 MG Fluoxetine HCl (Prozac Cap) 20 mg QAM PO 05/04/17 09:00 06/03/17 08:59 05/06/17 07:52 20 MG Hydrocortisone (Cortef Tab) 20 mg QAM PO 05/04/17 09:00 06/03/17 08:59 05/06/17 07:54 20 MG Hydroxyzine HCl (Vistaril Tab) 50 mg HSZ PRN PO 05/03/17 13:00 06/02/17 12:59 Nystatin (Mycostatin Susp) 5 ml QID PO 05/03/17 13:00 05/13/17 12:59 05/06/17 07:52 5 ML Tiotropium [place] (Spiriva Handihaler Inhaler) 1 puff DAILY INH 05/04/17 09:00 06/03/17 08:59 05/06/17 07:51 1 PUFF Cholestyramine Resin (Questran Powder Light) 4 gm QID@1000,1400,1800,2200 PO 05/03/17 18:00 06/02/17 17:59 05/06/17 07:51 4 GM Miscellaneous Information (Order Awaiting Action) 1 ea QS N/A 05/03/17 16:00 06/02/17 15:59 Mirtazapine (Remeron Solutab) 30 mg HS PO 05/03/17 21:00 06/02/17 20:59 05/05/17 20:54 30 MG Glucose (Glucose 40% Gel) 15-30 GRAMS 15 GRAMS... UD PRN PO 05/03/17 13:00 06/02/17 12:59 Glucose (Glucose Chew Tab) 4-8 Tablets 4 Tabl... UD PRN PO 05/03/17 13:00 06/02/17 12:59 Dextrose (Dextrose 50% 50ML Syringe) 25-50ML OF 50% DW IV FOR... UD PRN IV 05/03/17 13:00 06/02/17 12:59 Glucagon (Glucagon Inj) 1 mg UD PRN SQ 05/03/17 13:00 06/02/17 12:59 Miscellaneous Information (Consult Glycemic Management Pharmacy) 1 ea UD PRN N/A 05/03/17 14:26 06/02/17 14:25 Ondansetron HCl (Zofran Inj) 4 mg Q6H PRN IV 05/03/17 13:30 06/02/17 13:29 05/05/17 08:14 4 MG Metronidazole 500 mg/Prmx 100 ml @ 100 mls/hr Q8H IV 05/03/17 16:00 05/17/17 15:59 05/06/17 07:53 100 MLS/HR Hydrocortisone (Cortef Tab) 10 mg HS PO 05/03/17 21:00 06/02/17 20:59 05/05/17 20:50 10 MG Hydromorphone HCl (Dilaudid Inj) 0.5 mg Q3HWA PRN IV 05/03/17 19:45 05/17/17 19:44 05/06/17 02:17 0.5 MG Nicotine (Nicoderm Cq 21MG Patch) 1 patch QAM TD 05/04/17 09:00 06/03/17 08:59 05/06/17 07:51 1 PATCH Miscellaneous (Remove Nicoderm Patch) 1 ea HS N/A 05/04/17 21:00 06/03/17 20:59 05/05/17 20:50 1 EA Insulin Aspart (novoLOG ASPART) SLIDING SCALE If C... ACHS SC 05/03/17 21:00 06/02/17 20:59 05/04/17 18:05 8 UNITS Insulin Glargine (Lantus Solostar Pen) SEE PROTOCOL QDD SC 05/04/17 12:00 06/03/17 11:59 05/04/17 12:36 10 UNIT Ciprofloxacin (Cipro Tab) 500 mg Q12@0800,2000 PO 05/04/17 20:00 05/14/17 19:59 05/06/17 07:52 500 MG Albuterol/ Ipratropium (Duoneb) 3 ml QIDR PRN INH 05/04/17 16:00 06/02/17 15:59 Isosorbide Mononitrate (Imdur Ext Rel Tab) 60 mg QAM PO 05/04/17 13:15 06/03/17 13:14 05/06/17 07:53 60 MG Metoprolol Tartrate (Lopressor Tab) 100 mg BID PO 05/04/17 21:00 06/03/17 20:59 05/06/17 07:53 100 MG Potassium Chloride (Klor-Con Tab) 20 meq DAILY PO 05/05/17 09:00 06/04/17 08:59 Raspberry (Raspberry Syrup 5ml Cup) 5 ml QID PO 05/04/17 13:00 05/18/17 12:59 05/06/17 07:52 5 ML Al Hydroxide/Mg Hydroxide/ Lidocaine HCl/ Barcode Q8H PRN PO 05/05/17 10:00 06/04/17 09:59 05/05/17 17:39 24 ML Vancomycin HCl (Consult) 1 ea UD PRN N/A 05/05/17 13:42 06/04/17 13:41 Magnesium Oxide (Mag-Ox Tab) 400 mg BID PO 05/05/17 21:00 06/04/17 20:59 05/06/17 07:53 400 MG Vancomycin HCl 1000 mg/Sodium Chloride 270 ml @ 125 mls/hr Q12@0200,1400 IV 05/06/17 02:00 05/16/17 01:59 05/06/17 01:54 125 MLS/HR Ranitidine HCl (zANTac TAB) 150 mg BID PO 05/05/17 21:00 06/03/17 08:59 05/06/17 07:52 150 MG Lisinopril (Zestril Tab) 5 mg QAM PO 05/06/17 09:00 06/05/17 08:59 05/06/17 08:20 5 MG Enoxaparin Sodium (Lovenox Inj) 40 mg QAM SQ 05/06/17 09:00 06/05/17 08:59 05/06/17 07:51 40 MG Phenazopyridine HCl (Pyridium Tab) 200 mg TID PO 05/05/17 21:00 05/07/17 20:59 05/06/17 07:52 200 MG Vancomycin HCl (Vancomycin Oral Soln) 250 mg QID PO 05/06/17 13:00 05/18/17 12:59
[2017-05-06] MEDS ORDERED: CALCIUM GLUCONATE 10% 2,000 MG in SODIUM CHLORIDE 0.9% 50ML 50 ML IV SCH (13:00)
[2017-05-06] MEDS ORDERED: VANCOMYCIN HCL 250 MG/5 ML SOLN PO SCH (13:00)
[2017-05-06] MEDS: VANCOMYCIN HCL 500 MG/10ML SOLN PO SCH ×3 (13:54→21:23)
[2017-05-06 14:54] VITALS: BP 128/74; PULSE 49; TEMP 36.6; O2SAT 99
[2017-05-06] MEDS ORDERED: SODIUM PHOSPHATE 3 MMOL/1 ML INFUSION IV SCH (17:00)
[2017-05-06] MEDS: INSULIN GLARGINE SOLOSTAR 100 UNITS/ML 3 ML PEN SC SCH (17:16)
[2017-05-06] MEDS ORDERED: SODIUM PHOSPHATE INJ 15 MMOL in SODIUM CHLORIDE 0.9% 250ML 250 ML IV ONE (17:30)
[2017-05-06] MEDS: MIRTAZAPINE SOLTAB 15 MG PO SCH (21:23)
[2017-05-06 21:25] VITALS: BP 145/77; PULSE 60
[2017-05-06 23:27] VITALS: BP 137/77; PULSE 54; TEMP 36.2; O2SAT 98
[2017-05-07] VITALS: O2SAT 98
[2017-05-07] MEDS: HYDROmorphone INJ 1 MG/ML SYR IV PRN ×6 (00:27→21:18)
[2017-05-07] MEDS ORDERED: VANCOMYCIN TROUGH ONE (01:30)
[2017-05-07] MEDS: VANCOMYCIN INJ 1,000 MG in SODIUM CHLORIDE 0.9% 250ML 250 ML IV SCH (02:16)
[2017-05-07] MEDS: BREO ELLIPTA: ORDER AWAITING ACTION SCH ×3 (07:09→23:23)
[2017-05-07 07:23] LABS: HEMATOCRIT 36.8 % (42-52); MEAN CELL VOLUME 91.5 fL (80-100); MEAN CORPUSCULAR HEMOGLOBIN 27.4 pg (25-34); MEAN CORPUSCULAR HGB CONC 29.9 g/dl (32-36); MEAN PLATELET VOLUME 10.5 fL (7.4-10.4); PLATELET COUNT 239 K/uL (130-400); RED BLOOD COUNT 4.02 M/uL (4.7-6.1); WHITE BLOOD COUNT 7.49 K/uL (4.8-10.8)
[2017-05-07 07:27] VITALS: BP 127/78; PULSE 53; TEMP 36.5; O2SAT 97
[2017-05-07 08:00] VITALS: O2SAT 98
[2017-05-07 08:00] LABS: BUN/CREATININE RATIO 4.9 (10-20); CALCIUM 8.3 mg/dl (8.5-10.1); CREATININE 0.99 mg/dl (0.60-1.40); MAGNESIUM 1.5 mg/dl (1.8-2.4); POTASSIUM 3.5 mmol/L (3.5-5.1)
[2017-05-07 08:07] LABS: PHOSPHORUS 2.4 mg/dl (2.5-4.9)
[2017-05-07] MEDS: METOPROLOL TARTRATE 100 MG TAB PO SCH ×3 (08:26→23:40)
[2017-05-07] MEDS: TIOTROPIUM BROMIDE 5 PUFF/90 MCG INH INH SCH (08:28)
[2017-05-07] MEDS: HYDROCORTISONE 10 MG TAB PO SCH ×2 (08:28→21:05)
[2017-05-07] MEDS: PHENAZOPYRIDINE HCL 200 MG TAB PO SCH ×2 (08:29→14:24)
[2017-05-07] MEDS: NYSTATIN SUSP 500,000 U/5 ML UDC PO SCH ×4 (08:29→21:12)
[2017-05-07] MEDS: RASPBERRY SYRUP 5 ML UDP PO SCH ×4 (08:29→21:04)
[2017-05-07] MEDS: RANITIDINE HCL 150 MG TAB PO SCH ×2 (08:29→21:09)
[2017-05-07] MEDS: VANCOMYCIN HCL 500 MG/10ML SOLN PO SCH ×4 (08:29→21:04)
[2017-05-07] MEDS: POTASSIUM CHLORIDE 20 MEQ TABCR PO SCH (08:29)
[2017-05-07] MEDS: ASPIRIN 81 MG ECTAB PO SCH (08:29)
[2017-05-07] MEDS: ISOSORBIDE MONONITRATE 60 MG TABCR PO SCH (08:29)
[2017-05-07] MEDS: ATORVASTATIN 40 MG TAB PO SCH (08:29)
[2017-05-07] MEDS: FLUOXETINE HCL 20 MG CAP PO SCH (08:29)
[2017-05-07] MEDS: ENOXAPARIN 40 MG/0.4 ML SYR SQ SCH (08:30)
[2017-05-07] MEDS: NICOTINE 21 MG/24 HR TDSY TD SCH (08:30)
[2017-05-07] MEDS: LISINOPRIL 5 MG TAB PO SCH (08:30)
[2017-05-07] MEDS: INSULIN ASPART 100 UNITS/ML 3 ML PEN SC SCH ×5 (08:42→21:12)
--- NOTE | 2017-05-07 09:24 | Pharmacy Progress Note ---
Pharmacy Antibiotic Prog Note Date of Service May 07, 2017. Subjective The patient is currently receiving vancomycin 1000 mg IV every 12 hours. The patient is currently on day # 3 of vancomycin IV therapy for coag negative staph UTI. Objective Height (Feet): 5 Height (Inches): 10.00 Weight (Kilograms): 75.200 Levels: Item Value Date Time Vancomycin Level Trough 17.7 mcg/ml 05/07/17 0125 Previous dose hung 05/06 @6554. Lab Results (24hrs): Test 05/06/17 13:25 05/06/17 20:47 05/06/17 21:10 05/07/17 01:25 Ionized Calcium 1.26 mmol/l (1.12-1.32) Phosphorus Level 1.6 mg/dl (2.5-4.9) 25-Hydroxy Vitamin D Total 27.2 ng/ml (30-100) Parathyroid Hormone (Intact) 17.8 pg/mL (11.1-79.5) Bedside Glucose 86 mg/dl (70-99) Vancomycin Level Trough 17.7 mcg/ml (SEE COMMENT) Test 05/07/17 06:45 05/07/17 07:15 White Blood Count 7.49 K/uL (4.8-10.8) Red Blood Count 4.02 M/uL (4.7-6.1) Hemoglobin 11.0 g/dL (14.0-18.0) Hematocrit 36.8 % (42-52) Mean Corpuscular Volume 91.5 fL (80-100) Mean Corpuscular Hemoglobin 27.4 pg (25-34) Mean Corpuscular Hemoglobin Concent 29.9 g/dl (32-36) RDW Standard Deviation 49.1 fL (36.4-46.3) RDW Coefficient of Variation 14.6 % (11.5-14.5) Platelet Count 239 K/uL (130-400) Mean Platelet Volume 10.5 fL (7.4-10.4) Sodium Level 147 mmol/L (136-145) Potassium Level 3.5 mmol/L (3.5-5.1) Chloride Level 117 mmol/L (98-107) Carbon Dioxide Level 21 mmol/L (21-32) Anion Gap 9.0 mmol/L (3-11) Blood Urea Nitrogen 5 mg/dl (7-18) Creatinine 0.99 mg/dl (0.60-1.40) Est Creatinine Clear Calc Drug Dose 79.9 ml/min Estimated GFR () 94.2 Estimated GFR (Non- 81.3 BUN/Creatinine Ratio 4.9 (10-20) Random Glucose 180 mg/dl (70-99) Calcium Level 8.3 mg/dl (8.5-10.1) Phosphorus Level 2.4 mg/dl (2.5-4.9) Magnesium Level 1.5 mg/dl (1.8-2.4) Bedside Glucose 160 mg/dl (70-99) Micro Results: 05/03 urine coag neg staph- R oxacillin, S dapto, nitrofur, tetra, Bactrim, vanco (CECELIA=2) 05/03 stool (+) C.difficile, neg other enteric pathogens 05/03 blood x2 NGTD Recent Pertinent Medications Item Value Date Time Vancomycin HCl 500 mg 05/06/17 1300 (Vancomycin Oral QID/PO 05/07/17 0829 Soln) Vancomycin HCl 270 ml @ 125 mls/hr 05/06/17 0200 1000 mg/Sodium Q12@0200,1400/IV 05/07/17 0216 Chloride Ciprofloxacin 500 mg 05/04/17 2000 (Cipro Tab) Q12@0800,2000/PO 05/06/17 0752 Vancomycin HCl 125 mg 05/04/17 1300 (Vancomycin Oral QID/PO 05/06/17 0752 Soln) Metronidazole 500 100 ml @ 100 mls/hr 05/03/17 1600 mg/Prmx Q8H/IV 05/06/17 0753 Assessment & Plan This drug level is: Therapeutic, especially since a higher trough may be needed for [employer] with vancomycin CECELIA=2. Continue vancomycin 1000 mg IV every 12 hours. Will recheck trough in a few days , if stable, to monitor for accumulation. Goal trough level estimate: between 15-20 mcg/mL. Trough has been ordered for: 05/09/17 before 0200 dose. Pharmacy will continue to follow and will adjust dose/frequency as necessary. Thank you
[2017-05-07] MEDS ORDERED: MAG SULFATE 50% INJ 4 GM in SODIUM CHLORIDE 0.9% 500ML 500 ML IV SCH (10:00)
[2017-05-07] MEDS: CHOLESTYRAMINE LIGHT 4 GM PKT PO SCH (10:04)
--- NOTE | 2017-05-07 11:17 | Gastroenterology Progress Note ---
Progress Note Date of Service: May 07, 2017 Subjective Pt evaluation today including: conversation w/ patient, physical exam, chart review, lab review, review of studies, review of inpatient medication list Mr. Urbina is a 62 yr old male admitted for diarrhea who has a hx of microscopic colitis, UC, prior C-diff (2013), with recurrent C-diff. C-diff, cystitis. Also, treated with Cipro/flagyl for ? diverticulitis on CT. Since yesterday, Vanco increased to 250mg QID, cholestyramine continued: Diarrhea improving. Pain on swallowing is also better. Review of Systems Constitutional: No fever ENT: No hearing loss Respiratory: No cough Cardiac: No chest pain Abdomen: + pain (improving), + diarrhea (improving), No nausea Musculoskeletal: No joint pain Neuro: No memory loss Psych: No depression symptoms Heme: No abnormal bleeding/bruising Endo: No fatigue Skin: No rash Medications Current Inpatient Medications Medications (Trade) Dose Ordered Sig/Tisha Route Start Time Stop Time Status Last Admin Dose Admin Alprazolam (Xanax Tab) 0.5 mg HS PRN PO 05/03/17 13:00 06/02/17 12:59 Aspirin (Ecotrin Tab) 81 mg QAM PO 05/04/17 09:00 06/03/17 08:59 05/07/17 08:29 81 MG Atorvastatin Calcium (Lipitor Tab) 80 mg DAILY PO 05/04/17 09:00 06/03/17 08:59 05/07/17 08:29 80 MG Fluoxetine HCl (Prozac Cap) 20 mg QAM PO 05/04/17 09:00 06/03/17 08:59 05/07/17 08:29 20 MG Hydrocortisone (Cortef Tab) 20 mg QAM PO 05/04/17 09:00 06/03/17 08:59 05/07/17 08:28 20 MG Hydroxyzine HCl (Vistaril Tab) 50 mg HSZ PRN PO 05/03/17 13:00 06/02/17 12:59 Nystatin (Mycostatin Susp) 5 ml QID PO 05/03/17 13:00 05/13/17 12:59 05/07/17 08:29 5 ML Tiotropium [place] (Spiriva Handihaler Inhaler) 1 puff DAILY INH 05/04/17 09:00 06/03/17 08:59 05/07/17 08:28 1 PUFF Miscellaneous Information (Order Awaiting Action) 1 ea QS N/A 05/03/17 16:00 06/02/17 15:59 Mirtazapine (Remeron Solutab) 30 mg HS PO 05/03/17 21:00 06/02/17 20:59 05/06/17 21:23 30 MG Glucose (Glucose 40% Gel) 15-30 GRAMS 15 GRAMS... UD PRN PO 05/03/17 13:00 06/02/17 12:59 Glucose (Glucose Chew Tab) 4-8 Tablets 4 Tabl... UD PRN PO 05/03/17 13:00 06/02/17 12:59 Dextrose (Dextrose 50% 50ML Syringe) 25-50ML OF 50% DW IV FOR... UD PRN IV 05/03/17 13:00 06/02/17 12:59 Glucagon (Glucagon Inj) 1 mg UD PRN SQ 05/03/17 13:00 06/02/17 12:59 Miscellaneous Information (Consult Glycemic Management Pharmacy) 1 ea UD PRN N/A 05/03/17 14:26 06/02/17 14:25 Ondansetron HCl (Zofran Inj) 4 mg Q6H PRN IV 05/03/17 13:30 06/02/17 13:29 05/05/17 08:14 4 MG Hydrocortisone (Cortef Tab) 10 mg HS PO 05/03/17 21:00 06/02/17 20:59 05/06/17 21:21 10 MG Hydromorphone HCl (Dilaudid Inj) 0.5 mg Q3HWA PRN IV 05/03/17 19:45 05/17/17 19:44 05/07/17 08:30 0.5 MG Nicotine (Nicoderm Cq 21MG Patch) 1 patch QAM TD 05/04/17 09:00 06/03/17 08:59 05/07/17 08:30 1 PATCH Miscellaneous (Remove Nicoderm Patch) 1 ea HS N/A 05/04/17 21:00 06/03/17 20:59 05/06/17 21:20 1 EA Insulin Aspart (novoLOG ASPART) SLIDING SCALE If C... ACHS SC 05/03/17 21:00 06/02/17 20:59 05/07/17 10:05 1 UNITS Insulin Glargine (Lantus Solostar Pen) SEE PROTOCOL QDD SC 05/04/17 12:00 06/03/17 11:59 05/06/17 17:16 5 UNIT Albuterol/ Ipratropium (Duoneb) 3 ml QIDR PRN INH 05/04/17 16:00 06/02/17 15:59 Isosorbide Mononitrate (Imdur Ext Rel Tab) 60 mg QAM PO 05/04/17 13:15 06/03/17 13:14 05/07/17 08:29 60 MG Metoprolol Tartrate (Lopressor Tab) 100 mg BID PO 05/04/17 21:00 06/03/17 20:59 05/06/17 21:25 100 MG Potassium Chloride (Klor-Con Tab) 20 meq DAILY PO 05/05/17 09:00 06/04/17 08:59 05/07/17 08:29 20 MEQ Raspberry (Raspberry Syrup 5ml Cup) 5 ml QID PO 05/04/17 13:00 05/18/17 12:59 05/07/17 08:29 5 ML Al Hydroxide/Mg Hydroxide/ Lidocaine HCl/ Barcode Q8H PRN PO 05/05/17 10:00 06/04/17 09:59 05/05/17 17:39 24 ML Vancomycin HCl (Consult) 1 ea UD PRN N/A 05/05/17 13:42 06/04/17 13:41 Magnesium Oxide (Mag-Ox Tab) 400 mg BID PO 05/05/17 21:00 06/04/17 20:59 Future Hold 05/06/17 07:53 400 MG Ranitidine HCl (zANTac TAB) 150 mg BID PO 05/05/17 21:00 06/03/17 08:59 05/07/17 08:29 150 MG Lisinopril (Zestril Tab) 5 mg QAM PO 05/06/17 09:00 06/05/17 08:59 05/07/17 08:30 5 MG Enoxaparin Sodium (Lovenox Inj) 40 mg QAM SQ 05/06/17 09:00 06/05/17 08:59 05/07/17 08:30 40 MG Phenazopyridine HCl (Pyridium Tab) 200 mg TID PO 05/05/17 21:00 05/07/17 20:59 05/07/17 08:29 200 MG Vancomycin HCl (Vancomycin Oral Soln) 500 mg QID PO 05/06/17 13:00 05/20/17 12:59 05/07/17 08:29 500 MG Magnesium Sulfate 4 gm/Sodium Chloride 508 ml @ 125 mls/hr Q4H4M IV 05/07/17 10:00 05/07/17 14:00 05/07/17 10:05 125 MLS/HR Trimethoprim/ Sulfamethoxazole (Septra Ds 800/ 160MG Tab) 1 tab Q12 PO 05/07/17 21:00 05/12/17 20:59 UNV Objective Vital Signs Date Time Temp Pulse Resp B/P (MAP) Pulse Ox O2 Delivery O2 Flow Rate FiO2 05/07/17 08:00 98 Room Air 05/07/17 07:27 36.5 53 20 127/78 (94) 97 Room Air 05/07/17 00:00 98 Room Air 05/06/17 23:27 36.2 54 20 137/77 (97) 98 Room Air 05/06/17 21:25 60 145/77 (99) 05/06/17 16:20 Room Air 05/06/17 14:54 36.6 49 18 128/74 (92) 99 Room Air Physical Exam General Appearance: no apparent distress Respiratory/Chest: lungs clear Cardiovascular: regular rate, rhythm, no JVD, no murmur Abdomen: soft, + tenderness (minimal, bilat lower abdomen) Neurologic/Psych: alert, normal mood/affect, oriented x 3 Skin: no jaundice Laboratory Results Last 24 Hours Test 05/06/17 11:30 05/06/17 13:25 05/06/17 16:52 05/06/17 20:47 Bedside Glucose 140 mg/dl 211 mg/dl 86 mg/dl Ionized Calcium 1.26 mmol/l Phosphorus Level 1.6 mg/dl 25-Hydroxy Vitamin D Total 27.2 ng/ml Parathyroid Hormone (Intact) 17.8 pg/mL Test 05/06/17 21:10 05/07/17 01:25 05/07/17 06:45 05/07/17 07:15 Vancomycin Level Trough 17.7 mcg/ml White Blood Count 7.49 K/uL Red Blood Count 4.02 M/uL Hemoglobin 11.0 g/dL Hematocrit 36.8 % Mean Corpuscular Volume 91.5 fL Mean Corpuscular Hemoglobin 27.4 pg Mean Corpuscular Hemoglobin Concent 29.9 g/dl RDW Standard Deviation 49.1 fL RDW Coefficient of Variation 14.6 % Platelet Count 239 K/uL Mean Platelet Volume 10.5 fL Sodium Level 147 mmol/L Potassium Level 3.5 mmol/L Chloride Level 117 mmol/L Carbon Dioxide Level 21 mmol/L Anion Gap 9.0 mmol/L Blood Urea Nitrogen 5 mg/dl Creatinine 0.99 mg/dl Est Creatinine Clear Calc Drug Dose 79.9 ml/min Estimated GFR () 94.2 Estimated GFR (Non- 81.3 BUN/Creatinine Ratio 4.9 Random Glucose 180 mg/dl Calcium Level 8.3 mg/dl Phosphorus Level 2.4 mg/dl Magnesium Level 1.5 mg/dl Bedside Glucose 160 mg/dl Assessment and Plan Mr. Urbina is a 62 yr old male with C-diff diarrhea. Though CT with suggestion of ileal diverticulitis, symptoms are not consistent with that. Plan: 1. Would continue Vancomycin to 250mg QID, one week longer than he is on antibiotics for other issues (or for a total of 2 weeks, whichever is longer). . 2. May advance diet. 3. Judicious use of antibiotics. 4. Continue cholestyramine 5. At this time, no plans to repeat EGD or colonoscopy. 6. GI will sign off. Please notify us of new/worsening GI issues. I saw evaluated the patient. He notes that his diarrhea is now improved today now at 7 from 20 bowel movements. Please continue with present medical management.
--- NOTE | 2017-05-07 11:44 | Pharmacy Progress Note ---
Glycemic Control: Progress Nt Date of Service May 07, 2017. Scope Glycemic Pharmacist consulted by Dr Mosquera on 05/03/17 for glycemic control and to write orders per [facility] inpatient glycemic control protocol. Objective Accuchecks BSG (last 24hrs): Test 05/06/17 11:30 05/06/17 16:52 05/06/17 20:47 05/07/17 06:45 Bedside Glucose 140 mg/dl (70-99) 211 mg/dl (70-99) 86 mg/dl (70-99) Random Glucose 180 mg/dl (70-99) Test 05/07/17 07:15 Bedside Glucose 160 mg/dl (70-99) Laboratory Data (last 24hrs) Test 05/07/17 06:45 Anion Gap 9.0 mmol/L BUN/Creatinine Ratio 4.9 Blood Urea Nitrogen 5 mg/dl Creatinine 0.99 mg/dl Potassium Level 3.5 mmol/L Sodium Level 147 mmol/L White Blood Count 7.49 K/uL Recent Pertinent Medications Outpatient Anti-diabetic Regimen: * Lantus 10-20 units as directed with a Humalog sliding scale * A1c = 7 % 02-20-17 The patient is currently receiving: * Basal insulin: Lantus 0-5 units every 24 hours at dinnertime (0 units if blood sugar less than 180 mg/dL and 5 units if blood sugar 180 mg/dL or greater) * Correctional Insulin: Novolog Correction per scale ACHS Goal Range: Low 110 mg/dL - High 140 mg/dL Correction Factor: 35 mg/dL/unit * Prandial insulin: Per carb ratio of 1 unit per 20 grams CHO consumed Risk Factors for Insulin Resistance: * Steroids: hydrocortisone 20 mg in the morning and 10 mg in the evening * Infection: sepsis and C diff * Diet: type 2 diet Assessment & Plan ASSESSMENT: * ADA & AACE recommend a goal blood sugar range 140-180 mg/dl for the majority of critically ill & non-critically ill patients. However, more stringent targets may be selected in individual cases. Will utilize more stringent goal of 110-140mg/dl based on patient age & comorbidities. Additionally, tighter glycemic control is warranted to facilitate wound/infection healing. * Mr Urbina is a 62 y/o M admitted 05/03/2017 for sepsis. Previous data from another admission demonstrates that Mr Urbina requires less than 10 units of insulin per day while hospitalized. He was started on loose correctional insulin plus a low dose Lantus. He received 22 units on 05/03/17 and then 29 units/day on 05/04/17. The patient then did not require any insulin on 05/05/17. Yesterday, his fasting blood sugar was 104 mg/dL; they ranged from 104-211. He required 10 units of insulin (5 units were basal). * Today, Mr Urbina's fasting blood sugar was 160 mg/dL which is much higher than yesterday. I believe this is because the patient went for > 24 hours without receiving insulin then received 10 units at once. The five units of Novolog produced a blood sugar of 86 mg/dL at bedtime which then rebounded to 160 mg/dL this morning. This same series of events took place his last hospitalization. The current course will be continued because the patient received more insulin than necessary the first two days of hospitalization. The plan below is slightly more aggressive than his last hospitalization and therefore should be sufficient. PLAN FOR INPATIENT GLYCEMIC CONTROL: * Basal insulin with LANTUS 0-5 units SQ with dinner (0 units if blood sugar less than 180 mg/dl and 5 units if blood sugar greater than 180 mg/dL) * Correctional Insulin with NOVOLOG per scale ACHS * Goal Range: Low 110 mg/dL - High 140 mg/dL * Correction Factor: 35 mg/dL/unit * Nutritional / Prandial insulin per carb ratio of 1 unit per 20 grams CHO consumed * Please note that the plan above was derived based on current level of insulin resistance and hospital stress. These recommendations are appropriate for inpatient admission only. Plan of care upon discharge will need to be reassessed to avoid potential outpatient hypo/hyperglycemia. Thank you.
--- NOTE | 2017-05-07 13:18 | Infectious Disease Progress Nt ---
Progress Note Date of Service May 07, 2017. Subjective Pt evaluation today including: conversation w/ patient, physical exam, chart review, lab review, review of studies, conversation w/ hospice consultant (Dr. Shankar), review of inpatient medication list Patient is feeling slightly improved today. He states that he has had a decreased number of bowel movements today. His white blood cell count this morning was 7.49. His creatinine was 0.99. He continues to have low phosphorus , low magnesium, mildly low calcium, and slightly elevated sodium and chloride. The patient's blood cultures continue to show no growth to date. He has had no repeat imaging studies. The patient's vancomycin dose was increased to 500 mg q.i.d.. All Other Systems: Reviewed and Negative Medications Current Inpatient Medications Medications (Trade) Dose Ordered Sig/Tisha Route Start Time Stop Time Status Last Admin Dose Admin Alprazolam (Xanax Tab) 0.5 mg HS PRN PO 05/03/17 13:00 06/02/17 12:59 Aspirin (Ecotrin Tab) 81 mg QAM PO 05/04/17 09:00 06/03/17 08:59 05/07/17 08:29 81 MG Atorvastatin Calcium (Lipitor Tab) 80 mg DAILY PO 05/04/17 09:00 06/03/17 08:59 05/07/17 08:29 80 MG Fluoxetine HCl (Prozac Cap) 20 mg QAM PO 05/04/17 09:00 06/03/17 08:59 05/07/17 08:29 20 MG Hydrocortisone (Cortef Tab) 20 mg QAM PO 05/04/17 09:00 06/03/17 08:59 05/07/17 08:28 20 MG Hydroxyzine HCl (Vistaril Tab) 50 mg HSZ PRN PO 05/03/17 13:00 06/02/17 12:59 Nystatin (Mycostatin Susp) 5 ml QID PO 05/03/17 13:00 05/13/17 12:59 05/07/17 12:46 5 ML Tiotropium [place] (Spiriva Handihaler Inhaler) 1 puff DAILY INH 05/04/17 09:00 06/03/17 08:59 05/07/17 08:28 1 PUFF Miscellaneous Information (Order Awaiting Action) 1 ea QS N/A 05/03/17 16:00 06/02/17 15:59 Mirtazapine (Remeron Solutab) 30 mg HS PO 05/03/17 21:00 06/02/17 20:59 05/06/17 21:23 30 MG Glucose (Glucose 40% Gel) 15-30 GRAMS 15 GRAMS... UD PRN PO 05/03/17 13:00 06/02/17 12:59 Glucose (Glucose Chew Tab) 4-8 Tablets 4 Tabl... UD PRN PO 05/03/17 13:00 06/02/17 12:59 Dextrose (Dextrose 50% 50ML Syringe) 25-50ML OF 50% DW IV FOR... UD PRN IV 05/03/17 13:00 06/02/17 12:59 Glucagon (Glucagon Inj) 1 mg UD PRN SQ 05/03/17 13:00 06/02/17 12:59 Miscellaneous Information (Consult Glycemic Management Pharmacy) 1 ea UD PRN N/A 05/03/17 14:26 06/02/17 14:25 Ondansetron HCl (Zofran Inj) 4 mg Q6H PRN IV 05/03/17 13:30 06/02/17 13:29 05/05/17 08:14 4 MG Hydrocortisone (Cortef Tab) 10 mg HS PO 05/03/17 21:00 06/02/17 20:59 05/06/17 21:21 10 MG Hydromorphone HCl (Dilaudid Inj) 0.5 mg Q3HWA PRN IV 05/03/17 19:45 05/17/17 19:44 05/07/17 12:46 0.5 MG Nicotine (Nicoderm Cq 21MG Patch) 1 patch QAM TD 05/04/17 09:00 06/03/17 08:59 05/07/17 08:30 1 PATCH Miscellaneous (Remove Nicoderm Patch) 1 ea HS N/A 05/04/17 21:00 06/03/17 20:59 05/06/17 21:20 1 EA Insulin Aspart (novoLOG ASPART) SLIDING SCALE If C... ACHS SC 05/03/17 21:00 06/02/17 20:59 05/07/17 12:47 3 UNITS Insulin Glargine (Lantus Solostar Pen) SEE PROTOCOL QDD SC 05/04/17 12:00 06/03/17 11:59 05/06/17 17:16 5 UNIT Albuterol/ Ipratropium (Duoneb) 3 ml QIDR PRN INH 05/04/17 16:00 06/02/17 15:59 Isosorbide Mononitrate (Imdur Ext Rel Tab) 60 mg QAM PO 05/04/17 13:15 06/03/17 13:14 05/07/17 08:29 60 MG Metoprolol Tartrate (Lopressor Tab) 100 mg BID PO 05/04/17 21:00 06/03/17 20:59 05/06/17 21:25 100 MG Potassium Chloride (Klor-Con Tab) 20 meq DAILY PO 05/05/17 09:00 06/04/17 08:59 05/07/17 08:29 20 MEQ Raspberry (Raspberry Syrup 5ml Cup) 5 ml QID PO 05/04/17 13:00 05/18/17 12:59 05/07/17 12:46 5 ML Al Hydroxide/Mg Hydroxide/ Lidocaine HCl/ Barcode Q8H PRN PO 05/05/17 10:00 06/04/17 09:59 05/05/17 17:39 24 ML Magnesium Oxide (Mag-Ox Tab) 400 mg BID PO 05/05/17 21:00 06/04/17 20:59 Future Hold 05/06/17 07:53 400 MG Ranitidine HCl (zANTac TAB) 150 mg BID PO 05/05/17 21:00 06/03/17 08:59 05/07/17 08:29 150 MG Lisinopril (Zestril Tab) 5 mg QAM PO 05/06/17 09:00 06/05/17 08:59 05/07/17 08:30 5 MG Enoxaparin Sodium (Lovenox Inj) 40 mg QAM SQ 05/06/17 09:00 06/05/17 08:59 05/07/17 08:30 40 MG Phenazopyridine HCl (Pyridium Tab) 200 mg TID PO 05/05/17 21:00 05/07/17 20:59 05/07/17 08:29 200 MG Vancomycin HCl (Vancomycin Oral Soln) 500 mg QID PO 05/06/17 13:00 05/20/17 12:59 05/07/17 12:46 500 MG Magnesium Sulfate 4 gm/Sodium Chloride 508 ml @ 125 mls/hr Q4H4M IV 05/07/17 10:00 05/07/17 14:00 05/07/17 10:05 125 MLS/HR Trimethoprim/ Sulfamethoxazole (Septra Ds 800/ 160MG Tab) 1 tab Q12 PO 05/07/17 21:00 05/12/17 20:59 Objective Vital Signs Date Time Temp Pulse Resp B/P (MAP) Pulse Ox O2 Delivery O2 Flow Rate FiO2 05/07/17 08:00 98 Room Air 05/07/17 07:27 36.5 53 20 127/78 (94) 97 Room Air 05/07/17 00:00 98 Room Air 05/06/17 23:27 36.2 54 20 137/77 (97) 98 Room Air 05/06/17 21:25 60 145/77 (99) 05/06/17 16:20 Room Air 05/06/17 14:54 36.6 49 18 128/74 (92) 99 Room Air Physical Exam General Appearance: WD/WN, no apparent distress Eyes: normal inspection, sclerae normal ENT: hearing grossly normal Neck: supple, trachea midline Respiratory/Chest: chest non-tender, normal breath sounds, no respiratory distress, no accessory muscle use, + crackles (very mild crackles LLL) Cardiovascular: regular rate, rhythm, no murmur Abdomen: normal bowel sounds, + tenderness (mild generalized) Extremities: normal range of motion Neurologic/Psychiatric: alert, normal mood/affect Skin: normal color, warm/dry, no rash Laboratory Results Item Value Date Time Urine Culture - Final Complete 05/03/17 1133 Urine , Clean Catch Coag Neg Staphylococcus Blood Culture - Preliminary Resulted 05/03/17 1042 Blood NO GROWTH TO DATE. Blood Culture - Preliminary Resulted 05/03/17 1035 Blood NO GROWTH TO DATE. Last 24 Hours Test 05/06/17 13:25 05/06/17 16:52 05/06/17 20:47 05/06/17 21:10 Ionized Calcium 1.26 mmol/l Phosphorus Level 1.6 mg/dl 25-Hydroxy Vitamin D Total 27.2 ng/ml Parathyroid Hormone (Intact) 17.8 pg/mL Bedside Glucose 211 mg/dl 86 mg/dl Test 05/07/17 01:25 05/07/17 06:45 05/07/17 07:15 05/07/17 11:21 Vancomycin Level Trough 17.7 mcg/ml White Blood Count 7.49 K/uL Red Blood Count 4.02 M/uL Hemoglobin 11.0 g/dL Hematocrit 36.8 % Mean Corpuscular Volume 91.5 fL Mean Corpuscular Hemoglobin 27.4 pg Mean Corpuscular Hemoglobin Concent 29.9 g/dl RDW Standard Deviation 49.1 fL RDW Coefficient of Variation 14.6 % Platelet Count 239 K/uL Mean Platelet Volume 10.5 fL Sodium Level 147 mmol/L Potassium Level 3.5 mmol/L Chloride Level 117 mmol/L Carbon Dioxide Level 21 mmol/L Anion Gap 9.0 mmol/L Blood Urea Nitrogen 5 mg/dl Creatinine 0.99 mg/dl Est Creatinine Clear Calc Drug Dose 79.9 ml/min Estimated GFR () 94.2 Estimated GFR (Non- 81.3 BUN/Creatinine Ratio 4.9 Random Glucose 180 mg/dl Calcium Level 8.3 mg/dl Phosphorus Level 2.4 mg/dl Magnesium Level 1.5 mg/dl Bedside Glucose 160 mg/dl 147 mg/dl Assessment and Plan Patient with history of ulcerative colitis now with Coag-negative staph UTI ( with recent hx of pyelonephritis), and C. Diff colitis. The patient is currently on IV vancomycin and p.o. vancomycin 100 mg q.i.d.. I did discuss this patient with Dr. Shankar. Ultimately feel that this patient can transition to p.o. Bactrim DS b.i.d. to complete 7 days of therapy for UTI in his suspension if he prefers, and continue on p.o. vancomycin 125 mg q.i.d. upon discharge throughout course of Bactrim and for 7 days following discontinuation. The patient also can follow-up with ID as an outpatient in approximately 1 week for reassessment. PROVIDER ADDENDUM: Pt. reviewed with Ms. Cisneros. Agree with above assessment.
[2017-05-07 14:34] VITALS: BP 130/70; PULSE 60; TEMP 36.5; O2SAT 97
[2017-05-07] MEDS: INSULIN GLARGINE SOLOSTAR 100 UNITS/ML 3 ML PEN SC SCH (17:00)
--- NOTE | 2017-05-07 18:06 | Progress Note ---
Medicine Progress Note Date & Time of Visit: May 07, 2017 at 0900. Subjective 61 year old male with history of Ulcerative Colitis, Chronic Intermittent Prednisone Use, Adrenal Insufficiency, CAD, DM 2 on Insulin, p/w c-diff colitis after Levaquin use last week. -feeling well and asking for solid foods -heartburn still present on occasion -abdominal pain still present with same quality. -BMs have slowed up to only a few but with drastic reduction since yesterday -Dessitin paste has helped rectal pain. Objective Last 8 Hrs Date Time Temp Pulse Resp B/P (MAP) Pulse Ox O2 Delivery O2 Flow Rate FiO2 05/07/17 16:00 Room Air 05/07/17 14:34 36.5 60 18 130/70 (90) 97 Room Air Physical Exam: GEN: WNWD, in no acute distress, alert and appropriate HEENT: NC/AT, normal sclerae CARDIO: reg rate, S1/2 heard without m/g/r, no LE swelling or edema LUNGS: CTA bilaterally, no crackles, rales or wheezes, good diaphragmatic excursion ABD: soft, TTP in LLQ/LUQ/suprapubic tenderness. Non-distended, no rebound. + BS present EXTREMITY: RP and DP palpable 2+ bilat, extremities are warm and well-perfused NEURO: CN 2-12 grossly intact, no gross focal deficits. MUSC: moves all extremities equally SKIN: warm and dry. Some erythema noted across the face consistent with poss rosacea. Laboratory Results: 05/07/17 06:45 05/07/17 06:45 Test 05/03/17 09:25 05/03/17 11:33 05/03/17 13:30 05/03/17 13:38 Total Bilirubin 0.8 mg/dl (0.2-1) Direct Bilirubin 0.2 mg/dl (0-0.2) Aspartate Amino Transf (AST/SGOT) 23 U/L (15-37) Alanine Aminotransferase (ALT/SGPT) 31 U/L (12-78) Alkaline Phosphatase 173 U/L (45-117) Total Protein 8.8 gm/dl (6.4-8.2) Albumin 3.6 gm/dl (3.4-5.0) Lipase 330 U/L (73-393) Urine Color DK YELLOW Urine Appearance CLOUDY (CLEAR) Urine pH 5.0 (4.5-7.5) Urine Specific [place] 1.023 (1.000-1.030) Urine Protein 2+ (NEG) Urine Glucose (UA) NEG (NEG) Urine Ketones TRACE (NEG) Urine Occult Blood 2+ (NEG) Urine Nitrite NEG (NEG) Urine Bilirubin NEG (NEG) Urine Urobilinogen NEG (NEG) Urine Leukocyte Esterase SMALL (NEG) Urine WBC (Auto) >30 /hpf (0-5) Urine RBC (Auto) 5-10 /hpf (0-4) Urine Hyaline Casts (Auto) 1-5 /lpf (0-5) Urine Epithelial Cells (Auto) >30 /lpf (0-5) Urine Bacteria (Auto) 4+ (NEG) Urine Pathogenic Casts /lpf (0) Lactic Acid Level 1.1 mmol/L (0.4-2.0) Bedside Lactic Acid Venous 1.00 mmol/L (0.90-1.70) Test 05/05/17 00:45 05/05/17 06:50 05/06/17 13:25 05/06/17 21:10 Total Creatine Kinase 62 U/L (39-308) Creatine Kinase MB 2.2 ng/ml (0.5-3.6) Creatine Kinase MB Ratio 3.5 (0-3.0) Troponin I < 0.015 ng/ml (0-0.045) Immature Granulocyte % (Auto) 0.5 % White Blood Count 8.32 K/uL (4.8-10.8) Red Blood Count 3.80 M/uL (4.7-6.1) Hemoglobin 11.1 g/dL (14.0-18.0) Hematocrit 35.0 % (42-52) Mean Corpuscular Volume 92.1 fL (80-100) Mean Corpuscular Hemoglobin 29.2 pg (25-34) Mean Corpuscular Hemoglobin Concent 31.7 g/dl (32-36) Platelet Count 249 K/uL (130-400) Mean Platelet Volume 10.8 fL (7.4-10.4) Neutrophils (%) (Auto) 68.3 % Lymphocytes (%) (Auto) 21.0 % Monocytes (%) (Auto) 8.7 % Eosinophils (%) (Auto) 1.3 % Basophils (%) (Auto) 0.2 % Neutrophils # (Auto) 5.68 K/uL (1.4-6.5) Lymphocytes # (Auto) 1.75 K/uL (1.2-3.4) Monocytes # (Auto) 0.72 K/uL (0.11-0.59) Eosinophils # (Auto) 0.11 K/uL (0-0.5) Basophils # (Auto) 0.02 K/uL (0-0.2) Immature Granulocyte # (Auto) 0.04 K/uL (0.00-0.02) Ionized Calcium 1.26 mmol/l (1.12-1.32) 25-Hydroxy Vitamin D Total 27.2 ng/ml (30-100) Parathyroid Hormone (Intact) 17.8 pg/mL (11.1-79.5) Test 05/07/17 01:25 05/07/17 06:45 05/07/17 16:22 Vancomycin Level Trough 17.7 mcg/ml (SEE COMMENT) Red Blood Count 4.02 M/uL (4.7-6.1) Mean Corpuscular Volume 91.5 fL (80-100) Mean Corpuscular Hemoglobin 27.4 pg (25-34) Mean Corpuscular Hemoglobin Concent 29.9 g/dl (32-36) RDW Standard Deviation 49.1 fL (36.4-46.3) RDW Coefficient of Variation 14.6 % (11.5-14.5) Mean Platelet Volume 10.5 fL (7.4-10.4) Anion Gap 9.0 mmol/L (3-11) Est Creatinine Clear Calc Drug Dose 79.9 ml/min Estimated GFR () 94.2 Estimated GFR (Non- 81.3 BUN/Creatinine Ratio 4.9 (10-20) Calcium Level 8.3 mg/dl (8.5-10.1) Phosphorus Level 2.4 mg/dl (2.5-4.9) Magnesium Level 1.5 mg/dl (1.8-2.4) Bedside Glucose 122 mg/dl (70-99) Date/Time Source Procedure Growth Status 05/03/17 10:42 Blood Blood Culture - Preliminary NO GROWTH TO DATE. Resulted 05/03/17 11:33 Stool C.difficile Toxin B Gene (PCR) - Final Positive for C. difficile toxin B gene Complete 05/03/17 11:33 Urine , Clean Catch Urine Culture - Final Coag Neg Staphylococcus Complete Last 24 Hours Test 05/06/17 20:47 05/06/17 21:10 05/07/17 01:25 05/07/17 06:45 Bedside Glucose 86 mg/dl Vancomycin Level Trough 17.7 mcg/ml White Blood Count 7.49 K/uL Red Blood Count 4.02 M/uL Hemoglobin 11.0 g/dL Hematocrit 36.8 % Mean Corpuscular Volume 91.5 fL Mean Corpuscular Hemoglobin 27.4 pg Mean Corpuscular Hemoglobin Concent 29.9 g/dl RDW Standard Deviation 49.1 fL RDW Coefficient of Variation 14.6 % Platelet Count 239 K/uL Mean Platelet Volume 10.5 fL Sodium Level 147 mmol/L Potassium Level 3.5 mmol/L Chloride Level 117 mmol/L Carbon Dioxide Level 21 mmol/L Anion Gap 9.0 mmol/L Blood Urea Nitrogen 5 mg/dl Creatinine 0.99 mg/dl Est Creatinine Clear Calc Drug Dose 79.9 ml/min Estimated GFR () 94.2 Estimated GFR (Non- 81.3 BUN/Creatinine Ratio 4.9 Random Glucose 180 mg/dl Calcium Level 8.3 mg/dl Phosphorus Level 2.4 mg/dl Magnesium Level 1.5 mg/dl Test 05/07/17 07:15 05/07/17 11:21 05/07/17 16:22 Bedside Glucose 160 mg/dl 147 mg/dl 122 mg/dl Assessment & Plan 61 year old male with history of Ulcerative Colitis, Chronic Intermittent Prednisone Use, Adrenal Insufficiency, CAD, DM 2 on Insulin, p/w c-diff colitis after Levaquin use last week. 1. Abdominal pain 2/2 C-diff colitis: improving pain and frequency of bowel movements on higher dose of Vanc. Cholestyramine was stopped in this setting because of low phos and concerning electrolyte abnormalities. May add back later as outpatient. 2. UTI-transitioned to Bactrim PO today, which we will cont for 7 days per ID. Cont pyridium for comfort 3. Persistent hypocalcemia-poss 2/2 hypomagnesemia related to diarrhea vs adrenal insufficiency vs other. Phos replacement given today. May be related to cholestyramine, which will be stopped for now. 4. Dysphagia 2/2 Schatzki's disease and known heartburn-per gI no inpatient EGD necessary and patient will follow-up with Dr Rodríguez as outpatient. Cont Ranitidine. Avoid PPI in setting of already low magnesium. GI cocktail PRN 5. UC-pt takes hydrocortisone regularly to control flares and is on Questran QID for help w chronic liquid stools. Recent colonoscopy was 02/20/17 while he was hospitalized for a UC flare. Hold Questran as above. 6. Chronic adrenal insufficiency-stable, cont home dose of hydrocortisone. 7. CAD-stable, no active ACS or concerning symptoms. Cont medical management with ASA, statin, restarted Imdur yest which may also help with atypical chest discomfort above. Restarted Lopressor, TTE normal per Cards. 8. DMII: Lantus/ISS per pharmacy recs. Sugar is controlled. 9. HTN-stable, cont lisinopril 10. COPD-not oxygen-dependent and is stable without wheezing on exam. Cont Duonebs PRN and Spiriva daily. Nicoderm patch to control cravings to smoke. 11. Tobacco abuse-Nicotine replacement given. 12. Iron-deficiency anemia-holding outpatient iron supplementation now. DVT proph-Lovenox 40 FULL CODE Dispo: med/surg Sabrina Shankar, [facility] Hospitalist Consultants: GI, Cards, ID Current Inpatient Medications: Current Inpatient Medications Medications (Trade) Dose Ordered Sig/Tisha Route Start Time Stop Time Status Last Admin Dose Admin Alprazolam (Xanax Tab) 0.5 mg HS PRN PO 05/03/17 13:00 06/02/17 12:59 Aspirin (Ecotrin Tab) 81 mg QAM PO 05/04/17 09:00 06/03/17 08:59 05/07/17 08:29 81 MG Atorvastatin Calcium (Lipitor Tab) 80 mg DAILY PO 05/04/17 09:00 06/03/17 08:59 05/07/17 08:29 80 MG Fluoxetine HCl (Prozac Cap) 20 mg QAM PO 05/04/17 09:00 06/03/17 08:59 05/07/17 08:29 20 MG Hydrocortisone (Cortef Tab) 20 mg QAM PO 05/04/17 09:00 06/03/17 08:59 05/07/17 08:28 20 MG Hydroxyzine HCl (Vistaril Tab) 50 mg HSZ PRN PO 05/03/17 13:00 06/02/17 12:59 Nystatin (Mycostatin Susp) 5 ml QID PO 05/03/17 13:00 05/13/17 12:59 05/07/17 16:57 5 ML Tiotropium [place] (Spiriva Handihaler Inhaler) 1 puff DAILY INH 05/04/17 09:00 06/03/17 08:59 05/07/17 08:28 1 PUFF Miscellaneous Information (Order Awaiting Action) 1 ea QS N/A 05/03/17 16:00 06/02/17 15:59 Mirtazapine (Remeron Solutab) 30 mg HS PO 05/03/17 21:00 06/02/17 20:59 05/06/17 21:23 30 MG Glucose (Glucose 40% Gel) 15-30 GRAMS 15 GRAMS... UD PRN PO 05/03/17 13:00 06/02/17 12:59 Glucose (Glucose Chew Tab) 4-8 Tablets 4 Tabl... UD PRN PO 05/03/17 13:00 06/02/17 12:59 Dextrose (Dextrose 50% 50ML Syringe) 25-50ML OF 50% DW IV FOR... UD PRN IV 05/03/17 13:00 06/02/17 12:59 Glucagon (Glucagon Inj) 1 mg UD PRN SQ 05/03/17 13:00 06/02/17 12:59 Miscellaneous Information (Consult Glycemic Management Pharmacy) 1 ea UD PRN N/A 05/03/17 14:26 06/02/17 14:25 Ondansetron HCl (Zofran Inj) 4 mg Q6H PRN IV 05/03/17 13:30 06/02/17 13:29 05/05/17 08:14 4 MG Hydrocortisone (Cortef Tab) 10 mg HS PO 05/03/17 21:00 06/02/17 20:59 05/06/17 21:21 10 MG Hydromorphone HCl (Dilaudid Inj) 0.5 mg Q3HWA PRN IV 05/03/17 19:45 05/17/17 19:44 05/07/17 12:46 0.5 MG Nicotine (Nicoderm Cq 21MG Patch) 1 patch QAM TD 05/04/17 09:00 06/03/17 08:59 05/07/17 08:30 1 PATCH Miscellaneous (Remove Nicoderm Patch) 1 ea HS N/A 05/04/17 21:00 06/03/17 20:59 05/06/17 21:20 1 EA Insulin Aspart (novoLOG ASPART) SLIDING SCALE If C... ACHS SC 05/03/17 21:00 06/02/17 20:59 05/07/17 17:35 2 UNITS Insulin Glargine (Lantus Solostar Pen) SEE PROTOCOL QDD SC 05/04/17 12:00 06/03/17 11:59 05/06/17 17:16 5 UNIT Albuterol/ Ipratropium (Duoneb) 3 ml QIDR PRN INH 05/04/17 16:00 06/02/17 15:59 Isosorbide Mononitrate (Imdur Ext Rel Tab) 60 mg QAM PO 05/04/17 13:15 06/03/17 13:14 05/07/17 08:29 60 MG Metoprolol Tartrate (Lopressor Tab) 100 mg BID PO 05/04/17 21:00 06/03/17 20:59 05/06/17 21:25 100 MG Potassium Chloride (Klor-Con Tab) 20 meq DAILY PO 05/05/17 09:00 06/04/17 08:59 05/07/17 08:29 20 MEQ Raspberry (Raspberry Syrup 5ml Cup) 5 ml QID PO 05/04/17 13:00 05/18/17 12:59 05/07/17 16:57 5 ML Al Hydroxide/Mg Hydroxide/ Lidocaine HCl/ Barcode Q8H PRN PO 05/05/17 10:00 06/04/17 09:59 05/05/17 17:39 24 ML Magnesium Oxide (Mag-Ox Tab) 400 mg BID PO 05/05/17 21:00 06/04/17 20:59 Future Hold 05/06/17 07:53 400 MG Ranitidine HCl (zANTac TAB) 150 mg BID PO 05/05/17 21:00 06/03/17 08:59 05/07/17 08:29 150 MG Lisinopril (Zestril Tab) 5 mg QAM PO 05/06/17 09:00 06/05/17 08:59 05/07/17 08:30 5 MG Enoxaparin Sodium (Lovenox Inj) 40 mg QAM SQ 05/06/17 09:00 06/05/17 08:59 05/07/17 08:30 40 MG Phenazopyridine HCl (Pyridium Tab) 200 mg TID PO 05/05/17 21:00 05/07/17 20:59 05/07/17 14:24 200 MG Vancomycin HCl (Vancomycin Oral Soln) 500 mg QID PO 05/06/17 13:00 05/20/17 12:59 05/07/17 16:57 500 MG Trimethoprim/ Sulfamethoxazole (Septra Ds 800/ 160MG Tab) 1 tab Q12 PO 05/07/17 21:00 05/12/17 20:59
[2017-05-07] MEDS: SULFAMETHOXAZOLE/TRIMETHOPRIM DS 800/160MG TAB PO SCH (21:06)
[2017-05-07 21:07] VITALS: BP 157/86; PULSE 54
[2017-05-07] MEDS: MIRTAZAPINE SOLTAB 15 MG PO SCH (21:09)
[2017-05-07 23:46] VITALS: BP 161/88; PULSE 63; TEMP 36.5; O2SAT 96
[2017-05-08] VITALS: O2SAT 98
[2017-05-08] MEDS: HYDROmorphone INJ 1 MG/ML SYR IV PRN ×2 (00:39→03:27)
[2017-05-08 07:36] VITALS: BP 136/77; PULSE 45; TEMP 36.3; O2SAT 96
[2017-05-08] MEDS: BREO ELLIPTA: ORDER AWAITING ACTION SCH (08:00)
[2017-05-08 08:19] LABS: HEMATOCRIT 36.8 % (42-52); MEAN CELL VOLUME 90.9 fL (80-100); MEAN CORPUSCULAR HEMOGLOBIN 29.1 pg (25-34); MEAN CORPUSCULAR HGB CONC 32.1 g/dl (32-36); PLATELET COUNT 241 K/uL (130-400); RED BLOOD COUNT 4.05 M/uL (4.7-6.1); WHITE BLOOD COUNT 8.62 K/uL (4.8-10.8)
[2017-05-08] MEDS: FLUOXETINE HCL 20 MG CAP PO SCH (08:19)
[2017-05-08] MEDS: ATORVASTATIN 40 MG TAB PO SCH (08:20)
[2017-05-08] MEDS: ASPIRIN 81 MG ECTAB PO SCH (08:20)
[2017-05-08] MEDS: HYDROCORTISONE 10 MG TAB PO SCH (08:20)
[2017-05-08] MEDS: RANITIDINE HCL 150 MG TAB PO SCH (08:20)
[2017-05-08] MEDS: ISOSORBIDE MONONITRATE 60 MG TABCR PO SCH (08:20)
[2017-05-08] MEDS: LISINOPRIL 5 MG TAB PO SCH (08:21)
[2017-05-08] MEDS: NYSTATIN SUSP 500,000 U/5 ML UDC PO SCH (08:21)
[2017-05-08] MEDS: SULFAMETHOXAZOLE/TRIMETHOPRIM DS 800/160MG TAB PO SCH (08:21)
[2017-05-08] MEDS: POTASSIUM CHLORIDE 20 MEQ TABCR PO SCH (08:21)
[2017-05-08] MEDS: RASPBERRY SYRUP 5 ML UDP PO SCH (08:22)
[2017-05-08] MEDS: NICOTINE 21 MG/24 HR TDSY TD SCH (08:22)
[2017-05-08] MEDS: ENOXAPARIN 40 MG/0.4 ML SYR SQ SCH (08:22)
[2017-05-08] MEDS: TIOTROPIUM BROMIDE 5 PUFF/90 MCG INH INH SCH (08:23)
[2017-05-08] MEDS: VANCOMYCIN HCL 500 MG/10ML SOLN PO SCH (08:23)
[2017-05-08] MEDS: INSULIN ASPART 100 UNITS/ML 3 ML PEN SC SCH (08:31)
[2017-05-08] MEDS: METOPROLOL TARTRATE 100 MG TAB PO SCH (08:32)
[2017-05-08] MEDS ORDERED: INSULIN GLARGINE SOLOSTAR 100 UNITS/ML 3 ML PEN SC ONE (09:00)
[2017-05-08 09:01] LABS: CREATININE 1.2 mg/dl (0.60-1.40); MAGNESIUM 1.8 mg/dl (1.8-2.4); PHOSPHORUS 2.7 mg/dl (2.5-4.9); POTASSIUM 3.8 mmol/L (3.5-5.1)
[2017-05-08 09:02] LABS: CALCIUM 8.8 mg/dl (8.5-10.1)
--- NOTE | 2017-05-08 09:35 | Pharmacy Progress Note ---
Glycemic Control: Progress Nt Date of Service May 08, 2017. Scope Glycemic Pharmacist consulted by Dr Mosquera on 05/03/2017 for glycemic control and to write orders per [facility] inpatient glycemic control protocol. Objective Accuchecks BSG (last 24hrs): Test 05/07/17 11:21 05/07/17 16:22 05/07/17 20:33 05/08/17 07:22 Bedside Glucose 147 mg/dl (70-99) 122 mg/dl (70-99) 143 mg/dl (70-99) 151 mg/dl (70-99) Test 05/08/17 07:36 Random Glucose 132 mg/dl (70-99) Laboratory Data (last 24hrs) Test 05/08/17 07:36 Anion Gap 10.0 mmol/L BUN/Creatinine Ratio 6.0 Blood Urea Nitrogen 7 mg/dl Creatinine 1.20 mg/dl Potassium Level 3.8 mmol/L Sodium Level 145 mmol/L White Blood Count 8.62 K/uL Recent Pertinent Medications Outpatient Anti-diabetic Regimen: * Lantus 10-20 units as directed with a Humalog sliding scale * A1c = 7 % 02-20-17 The patient is currently receiving: * Basal insulin: Lantus 0-5 units every 24 hours at dinnertime (0 units if blood sugar less than 180 mg/dL and 5 units if blood sugar 180 mg/dL or greater) * Correctional Insulin: Novolog Correction per scale ACHS Goal Range: Low 110 mg/dL - High 140 mg/dL Correction Factor: 35 mg/dL/unit * Prandial insulin: Per carb ratio of 1 unit per 20 grams CHO consumed Risk Factors for Insulin Resistance: * Steroids: hydrocortisone 20 mg in the morning and 10 mg in the evening * Infection: Bactrim + oral vancomycin * Diet: type 2 diet Assessment & Plan ASSESSMENT: * ADA & AACE recommend a goal blood sugar range 140-180 mg/dl for the majority of critically ill & non-critically ill patients. However, more stringent targets may be selected in individual cases. Will utilize more stringent goal of 110-140mg/dl based on patient age & comorbidities. Additionally, tighter glycemic control is warranted to facilitate wound/infection healing. * Mr Urbina is a 62 y/o M admitted 05/03/2017 for sepsis. Previous data from another admission demonstrates that Mr Urbina requires less than 10 units of insulin per day while hospitalized. He was started on loose correctional insulin plus a low dose Lantus. He received 22 units on 05/03/17 and then 29 units/day on 05/04/17. The patient then did not require any insulin on 05/05/17. Yesterday, his fasting blood sugar was 160 mg/dL; they ranged from 122-160. He required 10 units of insulin (0 units were basal). * Today, Mr Urbina's fasting blood sugar was 151 mg/dL which is still elevated. I believe that the patient receives a higher dose of Novolog in the morning and this decreases his blood sugar significantly. With Lantus timed for dinnertime, the blood sugar is still lower. The next morning his blood sugar is elevated because he is basal deficient. I scheduled a dose of Lantus 5 units today and limited the amount of Novolog to 3 units at a time. I believe that anything higher will be too much. Tomorrow, the glycemic pharmacist will elevate the patient to determine if this plan was effective. PLAN FOR INPATIENT GLYCEMIC CONTROL: * Basal insulin with LANTUS 5 units this morning * Correctional Insulin with NOVOLOG per scale ACHS * Goal Range: Low 110 mg/dL - High 140 mg/dL * Correction Factor: 35 mg/dL/unit * Nutritional / Prandial insulin per carb ratio of 1 unit per 20 grams CHO consumed RECOMMENDATIONS FOR DISCHARGE: * Mr Urbina's HbA1C was 7.0% which is reasonable control for patient of his age and co-morbidities. It is reasonable for him to continue his home regimen. He may require a more structured regimen but that can be determined by whomever is managing his insulin. Thank you.
[2017-05-08 09:37] VITALS: BP 136/77; PULSE 45; TEMP 36.3; O2SAT 96
[2017-05-08] MEDS ORDERED: VANC5CAP PO (09:58)
[2017-05-08] MEDS ORDERED: LPR50X PO (09:58)
[2017-05-08] MEDS ORDERED: SULF-183 PO (09:58)
--- NOTE | 2017-05-08 10:08 | Discharge Instructions ---
Discharge Instructions Date of Service May 08, 2017. Admission Reason for Admission: Abdominal Pain, Arf (Acute Renal Failure),Sepsis Discharge Discharge Diagnosis / Problem: C-diff colitis, Heartburn, Staph UTI Discharge Goals Goal(s): Therapeutic intervention, Prevent Disease Progression Activity Recommendations Activity Limitations: per Instructions/Follow-up section . Instructions / Follow-Up Instructions / Follow-Up Please take all medications as instructed. Please note that your Metoprolol was decreased by 50% because your heart rate was low in the hospital. Please note that your Questran was stopped out of concern for electrolyte abnormalities. You will be given a written prescription to get labwork prior to follow-up with your primary care physician (PCP) to ensure your levels have remained adequate. This can be restarted by your physician as an outpatient if needed. Please continue the Vancomycin capsules for c-diff an additional 7 days after you stop the Bactrim for your urine infection. It is very important to minimize antibiotic use in the future as your risk of repeat c-diff infection may be higher than average. Please ensure hand-washing with soap and water (not hand gel) while diarrhea is present, especially before any food preparation. Please continue taking your Nystatin drink for thrush until 05/17 per your outpatient physician's instructions. Ensure follow-up with Dr. Keith as outpatient for your heartburn issue. As this has worsened in the hospital prompting a cardiac evaluation, I would recommend you be re-evaluated as outpatient as soon as possible, preferably in the next 2 weeks. You have a follow-up with Dr. Lin scheduled for 05/14 @ 10:45am for follow-up from this hospitalization. Please bring all paperwork with you to this appointment and arrive 10 minutes early. It was a pleasure taking care of you! Call if you have any questions or problems. You can reach a [facility] hospitalist on duty at [facility] 24 hours a day by calling [phone]. Take care of yourself. Sabrina Shankar DO [facility] Hospitalist Current Hospital Diet Patient's current hospital diet: Diabetes Type 2 Diet, Low Lactose Diet Discharge Diet Recommended Diet: Diabetes Type 2 Diet Procedures Procedures Performed: TTE Pending Studies Studies pending at discharge: yes List of pending studies: Giardia Antigen level pending Laboratory Results Hemoglobin A1c Test 02/20/17 06:05 Range/Units Estimated Average Glucose 154 mg/dl Hemoglobin A1c 7.0 H 4.5-5.6 % Medical Emergencies . Who to Call and When: Medical Emergencies: If at any time you feel your situation is an emergency, please call 911 immediately. . Non-Emergent Contact Non-Emergency issues call your: Primary Care Provider . . "Provider Documentation" section prepared by Sabrina Shankar. . VTE Core Measure Inpt VTE Proph given/why not?: Enoxaparin (Lovenox)SQ, SCD's
--- NOTE | 2017-05-08 10:12 | Discharge Summary ---
Discharge Summary Date of Service May 08, 2017. Discharge Summary Admission Date: May 03, 2017 at 12:17 Discharge Date: May 08, 2017 Discharge Disposition: Home Principal Diagnosis: C-diff colitis Ulcerative Colitis UTI 2/2 coag-negative Staph Dysphagia and GERD Hypocalcemia Hypomagnesemia Hypophosphatemia Chronic adrenal insufficiency Bradycardia CAD DMII HTN COPD Tobacco use Iron deficiency anemia Procedures: TTE Vaccinations: None. Consultations: GI, Cards, ID Pending Studies/Follow-Up: per instructions below Medication Reconciliation New Medications: Metoprolol Tartrate (Metoprolol Tartrate) 50 Mg Tab 50 MG PO BID for 30 Days, #60 TAB Vancomycin Hcl (Vancomycin) 125 Mg Cap 125 MG PO QID for 14 Days, #56 CAP 0 Refills Sulfamethoxazole-Trimethoprim (Smz-Tmp Ds) 1 Tab Tab 1 TAB PO Q12 for 6 Days, #12 TAB Continued Medications: Albuterol Hfa (Ventolin Hfa) 200 Puffs/86837 Mcg Aers 3-4 PUFFS INH QID PRN for sob/wheezing, #1 INHALER Alprazolam (Xanax) 0.5 Mg Tab 0.5 MG PO HS PRN for Sleep, TAB Aspirin (Aspirin Chewable) 81 Mg Chew 81 MG PO QAM Atorvastatin (Lipitor) 80 Mg Tab 1 TAB PO DAILY for 30 Days, #30 TAB 5 Refills Dexamethasone Sod Phos (Dexamethasone Sodium Phos) 4 Mg/Ml Inj 1 ML IM DIRECTED PRN for emergency treatment Fluconazole (Diflucan) 100 Mg Tab 100 MG PO DAILY PRN for THRUSH, TAB Fluoxetine Hcl (Prozac) 20 Mg Cap 1 CAP PO QAM for 30 Days, #30 CAP 1 Refill Fluticasone Furoate-Vilanterol (Breo Ellipta) 1 Inh Inh 1 INHA PO DAILY Hydrocortisone (Cortef) 10 Mg Tab 20 MG PO QAM, TAB 2 TAB LETS EVERY MORNINIG. INCREASE DIRECTED WITH ILLNESS Hydrocortisone (Cortef) 10 Mg Tab 10 TAB PO UD 1 TAB LET EVERY EVENING. INCREASE DIRECTED FOR ILLNESS Hydroxyzine HCl (Hydroxyzine HCl) 25 Mg Tab 50 MG PO HSZ PRN for Anxiety/Insomnia for 30 Days, #30 TAB Insulin Glargine (Lantus) 100 Unit/Ml Inj 10-20 UNITS SC UD, VIAL USE DIRECTED Insulin Lispro (Human) (Humalog) 100 Unit/Ml Inj SC UD SLIDING SCALE Ipratropium-Albuterol (Duoneb) 3 Ml Nebu 1 TREATMENT INH QID PRN for sob/wheezing, #30 INHA Isosorbide Mononitrate Ext Rel (Imdur Ext Rel) 60 Mg Ertab 60 MG PO QAM, TAB Lisinopril (Zestril) 5 Mg Tab 5 MG PO QAM, TAB Mirtazapine Soltab (Remeron Soltab) 30 Mg Soltab 30 MG PO HS, TAB Nystatin (Nystatin) 5 Ml Susp 5 ML PO QID Potassium Chloride Microencaps (Potassium Chloride Er) 20 Meq Tab 1 TAB PO DAILY for 30 Days, #30 TAB 5 Refills Ranitidine Hcl (Zantac) 150 Mg Tab 150 MG PO BID, TAB Tiotropium [place] (Spiriva Handihaler) 30 Puff/540 Mcg Aerp 1 CAP INH DAILY, INHALER Discontinued Medications: Cholestyramine (Questran) 4 Gm Pow 4 GM PO QID Diphenoxylate/Atropine (Lomotil) Tab 1 TAB PO TID, TAB Ferrous Sulfate (Ferrous Sulfate) 325 Mg Tab 1 TAB PO DAILY Magnesium Chloride (Mag64) 535 Mg Tab 8 TABS PO BID Metoprolol Tartrate (Lopressor) (Lopressor) 100 Mg Tab 100 MG PO BID, TAB Admission Information HPI (per Admitting provider): 62 year old male with PMH of DM, HTN, UC, Adrenal insuff, CAD and recently discharged for pyelonephritis and treated with Levaquin on 04/21/17 presents to the Emergency Room with complaints of persistent abdominal pain that started yesterday. Patient said that the abd pain is worsening and yesterday he had multiple episodes of watery diarrhea and vomiting. Pt said that he could not keep anything on his stomach. his last episodes of diarrhea was this morning. He said that he feels weak. Pt said that the pain is located across the lower abdomen, dull ache like pain, travel across the abdomen, grade 9/10. Pt said that this abdominal pain is different than his UC flares up that usually in the left lower quadrant. He said that the last time he was admitted for the UC flares was on 02/19/17 at [facility]. He follows with Gastro Dr. Keith. 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 He also complaint of mid sternum chest pain, non radiated, no diaphoresis. He said that he has acid problem. Recently travel to [place] and [place] in the last month. His SBP dropped in the 70 in the ER and was given 2L NS. Currently his VS stable. He denies any fever, palpitation, dizziness, palpitation and SOB. Physical Exam (per Admitting): General Appearance: WD/WN, no apparent distress Head: normocephalic, atraumatic Eyes: normal inspection, PERRL, EOMI ENT: hearing grossly normal Neck: supple, no JVD Respiratory/Chest: lungs clear, no respiratory distress, no accessory muscle use Cardiovascular: regular rate, rhythm, no JVD, no murmur Abdomen/GI: + tenderness, + pertinent finding (hyperactive BS, tenderness across lower abdomen) Back: no CVA tenderness Extremities/Musculoskelatal: no calf tenderness Neurologic/Psych: no motor/sensory deficits, alert, normal mood/affect, oriented x 3 Skin: warm/dry, no rash Hospital Course 61 year old male with history of Ulcerative Colitis, Chronic Intermittent Prednisone Use, Adrenal Insufficiency, CAD, DM 2 on Insulin, p/w c-diff colitis after Levaquin use last week for bilateral pyelonephritis. 1. Abdominal pain 2/2 C-diff colitis: improving pain and frequency of bowel movements on higher dose of Vanc (500mg QID). Cholestyramine was stopped in this setting because of low phos and concerning electrolyte abnormalities requiring a couple of days of replacement efforts. May add back later as outpatient. Per ID will discharge on lower dose to finish out abx course which will need to be on for at least 7 days after finishing Bactrim. 2. UTI-Vanc IV started with GPCs present, transitioned to Bactrim PO today after cultures revealed oxacillin-resistant coag-negative staph, which we will cont for 7 days per ID, who was consulted for abx assistance. Cont pyridium for comfort 3. Persistent hypocalcemia-poss 2/2 hypomagnesemia related to diarrhea vs adrenal insufficiency vs other. Phos replacement given . May be related to cholestyramine, which will be stopped for now. 4. Dysphagia 2/2 Schatzki's disease and known heartburn-per gI no inpatient EGD necessary and patient will follow-up with Dr Rodríguez as outpatient. Cont Ranitidine. Avoid PPI in setting of already low magnesium. GI cocktail PRN 5. UC-pt takes hydrocortisone regularly to control flares and is on Questran QID for help w chronic liquid stools. Recent colonoscopy was 02/20/17 while he was hospitalized for a UC flare. Hold Questran as above. 6. Chronic adrenal insufficiency-stable, cont home dose of hydrocortisone. 7. CAD-stable, no active ACS or concerning symptoms. Cont medical management with ASA, statin, restarted Imdur yest which may also help with atypical chest discomfort above. Restarted Lopressor, TTE normal per Cards. 8. DMII: Lantus/ISS per pharmacy recs. Sugar is controlled. 9. HTN-stable, cont lisinopril 10. COPD-not oxygen-dependent and is stable without wheezing on exam. Cont Duonebs PRN and Spiriva daily. Nicoderm patch to control cravings to smoke. 11. Tobacco abuse-Nicotine replacement given. 12. Iron-deficiency anemia-holding outpatient iron supplementation now. On day of discharge, diarrhea was notably slowed down and he was tolerating PO without issue. He was ambulatory and mentating well and was discharged in stable condition with close PCP follow-up. Total time spent on discharge = 60 minutes This includes examination of the patient, discharge planning, medication reconciliation, and communication with other providers. Discharge Instructions Discharge Instructions Date of Service May 08, 2017. Admission Reason for Admission: Abdominal Pain, Arf (Acute Renal Failure),Sepsis Discharge Discharge Diagnosis / Problem: C-diff colitis, Heartburn, Staph UTI Discharge Goals Goal(s): Therapeutic intervention, Prevent Disease Progression Activity Recommendations Activity Limitations: per Instructions/Follow-up section . Instructions / Follow-Up Instructions / Follow-Up Please take all medications as instructed. Please note that your Metoprolol was decreased by 50% because your heart rate was low in the hospital. Please note that your Questran was stopped out of concern for electrolyte abnormalities. You will be given a written prescription to get labwork prior to follow-up with your primary care physician (PCP) to ensure your levels have remained adequate. This can be restarted by your physician as an outpatient if needed. Please continue the Vancomycin capsules for c-diff an additional 7 days after you stop the Bactrim for your urine infection. It is very important to minimize antibiotic use in the future as your risk of repeat c-diff infection may be higher than average. Please ensure hand-washing with soap and water (not hand gel) while diarrhea is present, especially before any food preparation. Please continue taking your Nystatin drink for thrush until 05/17 per your outpatient physician's instructions. Ensure follow-up with Dr. Keith as outpatient for your heartburn issue. As this has worsened in the hospital prompting a cardiac evaluation, I would recommend you be re-evaluated as outpatient as soon as possible, preferably in the next 2 weeks. You have a follow-up with Dr. Lin scheduled for 05/14 @ 10:45am for follow-up from this hospitalization. Please bring all paperwork with you to this appointment and arrive 10 minutes early. It was a pleasure taking care of you! Call if you have any questions or problems. You can reach a [facility] hospitalist on duty at [facility] 24 hours a day by calling [phone]. Take care of yourself. Sabrina Shankar, DO [facility] Center[facility] Additional Copies To Maggi Keith M.D.; Tony Lin D.O.
[2017-05-08] MEDS ORDERED: OXYC-57 PO (10:32)
[2017-05-08 23:22] LABS: O&P GIARDIA AG NOT DETECTED (NOT DETECTED)
[2017-05-09] MEDS ORDERED: VANCOMYCIN TROUGH ONE (01:30)
[2017-05-21] MEDS ORDERED: HYD10 PO ×2 (09:58→15:41)
[2017-05-21] MEDS ORDERED: RANI150T3 PO (09:58)
[2017-05-21] MEDS ORDERED: ASPCH81X PO (10:03)
[2017-05-21] MEDS ORDERED: LISI-729 PO (10:03)
[2017-05-21] MEDS ORDERED: ISOS60TA25 PO (10:03)
[2017-05-21] MEDS ORDERED: ALPR-411 PO (10:03)
[2017-05-21] MEDS ORDERED: INSU100I SC (10:45)
[2017-05-21] MEDS ORDERED: MIRT30TA2 PO (11:29)
[2017-05-21] MEDS ORDERED: SPRIN/30 INH (11:29)
[2017-05-21] MEDS ORDERED: INSDGI SC (11:29)
[2017-05-21] MEDS ORDERED: DEXA4INJ32 IM (15:41)
[2017-05-21] MEDS ORDERED: ATOR-26 PO (15:41)
[2017-05-21] MEDS ORDERED: FLUT1INH PO (15:41)
[2017-05-31] MEDS ORDERED: PPTBS PO (10:53)
[2017-05-31] MEDS ORDERED: CHOL4POW11 PO (10:53)
[2017-05-31] MEDS ORDERED: DIPH-416 PO (10:53)
[2017-05-31] MEDS ORDERED: MGNO400 PO (10:53)
[2017-05-31] MEDS ORDERED: AMT25 PO (10:53)
[2017-05-31] MEDS ORDERED: CTP1 PO (10:53)
[2017-05-31] MEDS ORDERED: ENT3 PO (10:53)
[2017-05-31] MEDS ORDERED: OXYC7.5T62 PO (10:53)
[2017-05-31] MEDS ORDERED: POTA1POW PO (11:17)
[2017-09-16] MEDS ORDERED: LMTHP PO (08:54)
[2017-09-16] MEDS ORDERED: SLWMEC PO (08:54)
[2017-09-16] MEDS ORDERED: CHOL4POW11 PO (08:54)
== END 2017-05-08 12:04 | disposition home or self-care (01) | DRG 372 ==
LOC: EDBD 10:02 → C.EDB 10:03 → C.MED 12:17 → ENRESERV 13:18 → EDBEDREQ 13:39
PROVIDERS: ADMIT Internal Medicine; ATTEND Hospitalist
DX: A04.7 Enterocolitis due to Clostridium difficile (principal); N39.0 Urinary tract infection, site not specified; E27.40 Unspecified adrenocortical insufficiency; N17.9 Acute kidney failure, unspecified; K51.90 Ulcerative colitis, unspecified, without complications; R13.10 Dysphagia, unspecified; R10.9 Unspecified abdominal pain; E11.9 Type 2 diabetes mellitus without complications; I10 Essential (primary) hypertension; I25.10 Atherosclerotic heart disease of native coronary artery without angina pectoris; K21.9 Gastro-esophageal reflux disease without esophagitis; J44.9 Chronic obstructive pulmonary disease, unspecified; E78.00 Pure hypercholesterolemia, unspecified; E86.0 Dehydration; F32.9 Major depressive disorder, single episode, unspecified; F41.9 Anxiety disorder, unspecified; F17.210 Nicotine dependence, cigarettes, uncomplicated; I95.9 Hypotension, unspecified; K57.30 Diverticulosis of large intestine without perforation or abscess without bleeding; D50.9 Iron deficiency anemia, unspecified; R30.0 Dysuria; R39.15 Urgency of urination; K22.2 Esophageal obstruction; L40.9 Psoriasis, unspecified; E83.39 Other disorders of phosphorus metabolism; E83.51 Hypocalcemia; E83.42 Hypomagnesemia; I25.2 Old myocardial infarction; Z95.5 Presence of coronary angioplasty implant and graft; Z79.82 Long term (current) use of aspirin; Z79.899 Other long term (current) drug therapy; Z79.4 Long term (current) use of insulin; Z80.9 Family history of malignant neoplasm, unspecified; Z83.3 Family history of diabetes mellitus; Z82.49 Family history of ischemic heart disease and other diseases of the circulatory system; Z88.8 Allergy status to other drugs, medicaments and biological substances

== ENCOUNTER 2017-05-17 13:36 | Emergency (ER) | payer OTHER ==
[~2017-05-17] VITALS: Ht 175.3 cm; Wt 71.4 kg
[~2017-05-17 13:36] MED LIST changes: -ALBINS/ INH; -CHOL4POW11 PO; -INSUINJ5 SC; -LEVO-459 PO; +LPR50X PO; -MAGN64TA4 PO; -METO100T14 PO; -NYSS/ PO; +NYSS5 PO; -OXYC-57 PO; +SULF-183 PO; +VANC5CAP PO
[2017-05-17 13:39] VITALS: TEMP 36.4; Ht 175.3 cm; Wt 71.4 kg
[2017-05-17] MEDS ORDERED: ONDANSETRON INJ 2 MG/ML 2 ML VIAL IV STA (14:18)
[2017-05-17] MEDS ORDERED: MoRPHine SULFATE 4 MG/ML 1 ML CARP\\VIAL IV STA (14:18)
[2017-05-17] MEDS ORDERED: SODIUM CHLORIDE 0.9% 1000ML 1,000 ML IV STA (14:18)
[2017-05-17] MEDS ORDERED: VANC1CAP3 PO (14:24)
[2017-05-17] MEDS ORDERED: OPTIRAY 320 IV PRN (14:45)
[2017-05-17 15:17] LABS: BASO % 0.3 %; BASO ABS # 0.04 K/uL (0-0.2); COMPLETE YES; EOS % 2.3 %; HEMATOCRIT 47.4 % (42-52); IG% 0.3 %; LYMPH % 27.7 %; LYMPH ABS # 3.32 K/uL (1.2-3.4); MEAN CELL VOLUME 89.3 fL (80-100); MEAN CORPUSCULAR HEMOGLOBIN 28.8 pg (25-34); MEAN CORPUSCULAR HGB CONC 32.3 g/dl (32-36); MEAN PLATELET VOLUME 11.4 fL (7.4-10.4); MONO % 8.3 %; NEUT % 61.1 %; PLATELET COUNT 212 K/uL (130-400); RED BLOOD COUNT 5.31 M/uL (4.7-6.1); WHITE BLOOD COUNT 11.98 K/uL (4.8-10.8)
[2017-05-17 15:27] LABS: BUN/CREATININE RATIO 8.2 (10-20); CALCIUM 10.7 mg/dl (8.5-10.1); CREATININE 1.6 mg/dl (0.60-1.40); POTASSIUM 4.5 mmol/L (3.5-5.1)
[2017-05-17] MEDS ORDERED: HYDROCORTISONE SOD SUCCINATE 100 MG/2 ML VIAL IV STA (15:30)
[2017-05-17 17:23] LABS: URINE APPEARANCE CLEAR (CLEAR); URINE BILIRUBIN NEG (NEG); URINE COLOR YELLOW; URINE EPITHELIAL CELL AUTO 20-30 /lpf (0-5); URINE NITRITE NEG (NEG); URINE SPECIFIC GRAVITY 1.019 (1.000-1.030); UROBILINOGEN NEG (NEG)
--- NOTE | 2017-05-17 17:23 | DIAGNOSTIC IMAGING REPORT ---
ABDOMEN AND PELVIS CT WITH ORAL CONTRAST CT DOSE: 349.94 mGy.cm HISTORY: Pain eval for colitis TECHNIQUE: Multiaxial CT images of the abdomen and pelvis were performed following the use of oral contrast. COMPARISON STUDY: 05/03/2017 FINDINGS: Lung bases are clear. Liver spleen and pancreas are uniform. Gallbladder is minimally distended. Kidneys negative for calcification or hydronephrosis. Bowel pattern within the abdomen and pelvis is nonobstructive throughout. No evidence for abscess collection or obstruction. Infiltrative change of the right lower quadrant the prior study has resolved. Slight bladder wall thickening has improved. No significant free fluid within the pelvic cul-de-sac. IMPRESSION: No acute process of the abdomen or pelvis. Improved exam compared to the prior study. Electronically signed by: Drew Chow M.D. 05/17/2017 5:22 PM Dictated Date/Time: 05/17/2017 5:19 PM
[2017-05-17 17:26] LABS: MANUAL MICROSCOPIC REQUIRED? NO; REVIEW REQ? YES
[2017-05-17 17:38] LABS: URINE PATH CASTS 1-5 GRANULAR CASTS /lpf (0)
[2017-05-17] MEDS ORDERED: OXYCODONE IR HOME PACK PO ONE (18:00)
[2017-05-17 18:12] VITALS: BP 136/84; PULSE 79; O2SAT 99
--- NOTE | 2017-05-17 19:37 | EMERGENCY ROOM VISIT NOTE ---
History Report prepared by Tisha: Serenity Love Under the Supervision of: Dr. Julius Spencer M.D. First contact with patient: 14:09 Chief Complaint: DIARRHEA Stated Complaint: SEVERE DIARRHEA, ABD. PAIN History of Present Illness The patient is a 62 year old male who presents to the Emergency Room with complaints of constant diarrhea. He reports that he has been off of Vancomycin for 8 days. The patient states that the diarrhea is mostly fluid, and that there is no blood present. The patient has had a low grade fever since yesterday. He reports that he is nauseous, but has not vomited, and that the smell of food makes him more nauseous. The patient reports having constant lower abdominal pain. He states that he was placed on Bactrim for a kidney infection, but he has since finished it. He states he has had the diarrhea and abdominal pain since he was hospitalized. It is not improved in anyway and he is up multiple times in the nighttime because of the diarrhea. Source of History: patient Position: other (global) Symptom Intensity: severe Quality: other (diarrhea ) Timing: constant Associated Symptoms: + fevers, + nausea, No vomiting Review of Systems See HPI for pertinent positives & negatives. A total of 10 systems reviewed and were otherwise negative. Past Medical & Surgical Medical Problems: (1) Adrenal insufficiency (2) ARF (acute renal failure) (3) Diabetes (4) Hypercholesteremia (5) Hypertension (6) Major depressive disorder, recurrent episode with anxious distress (7) Ulcerative colitis Surgical Problems: (1) H/O percutaneous transluminal coronary angioplasty (2) Stented coronary artery Family History Cancer Diabetes mellitus Heart disease Hypertension Social History Smoking Status: Current Every Day Smoker Alcohol Use: none Drug Use: none Marital Status: Housing Status: lives with family Occupation Status: retired Current/Historical Medications Scheduled Aspirin (Aspirin Chewable), 81 MG PO QAM Atorvastatin (Lipitor), 1 TAB PO DAILY Fluoxetine Hcl (Prozac), 1 CAP PO QAM Fluticasone Furoate-Vilanterol (Breo Ellipta), 1 INHA PO DAILY Hydrocortisone (Cortef), 20 MG PO QAM Hydrocortisone (Cortef), 10 TAB PO UD Insulin Glargine (Lantus), 10-20 UNITS SC UD Insulin Lispro (Human) (Humalog), SC UD Isosorbide Mononitrate Ext Rel (Imdur Ext Rel), 60 MG PO QAM Lisinopril (Zestril), 5 MG PO QAM Metoprolol Tartrate (Metoprolol Tartrate), 50 MG PO BID Mirtazapine Soltab (Remeron Soltab), 30 MG PO HS Nystatin (Nystatin), 5 ML PO QID Potassium Chloride Microencaps (Potassium Chloride Er), 1 TAB PO DAILY Ranitidine Hcl (Zantac), 150 MG PO BID Tiotropium [place] (Spiriva [place]er), 1 CAP INH DAILY Vancomycin Hcl (Vancomycin), 1 CAP PO QID Scheduled PRN Albuterol Hfa (Ventolin Hfa), 3-4 PUFFS INH QID PRN for sob/wheezing Alprazolam (Xanax), 0.5 MG PO HS PRN for Sleep Dexamethasone Sod Phos (Dexamethasone Sodium Phos), 1 ML IM DIRECTED PRN for emergency treatment Fluconazole (Diflucan), 100 MG PO DAILY PRN for THRUSH Hydroxyzine HCl (Hydroxyzine HCl), 50 MG PO HSZ PRN for Anxiety/Insomnia Ipratropium-Albuterol (Duoneb), 1 TREATMENT INH QID PRN for sob/wheezing Allergies Coded Allergies: Azathioprine (Verified Adverse Reaction, Unknown, RENAL COMPLICATIONS, ) Physical Exam Vital Signs Date Time Temp Pulse Resp B/P (MAP) Pulse Ox O2 Delivery O2 Flow Rate FiO2 05/17/17 18:12 79 18 136/84 99 05/17/17 18:11 79 18 136/84 99 Room Air 05/17/17 16:30 65 16 136/84 98 Room Air 05/17/17 15:19 93 20 135/86 100 Room Air 05/17/17 15:18 87 05/17/17 13:39 36.4 126 22 112/78 100 Room Air Physical Exam Constitutional: Vital signs reviewed. Eyes: Pupils are equal round reactive to light. Conjunctiva are noninjected. ENT: Pharynx is clear without erythema or exudate. Mucous membranes are dry. Neck supple without meningeal signs. Respiratory: Clear to auscultation bilaterally. Breath sounds are equal bilaterally. Cardiovascular: Regular rate and rhythm. No rubs or gallops. GI: Diffuse lower abdominal tenderness. Bowel sounds are present. No guarding. Musculoskeletal: No peripheral edema. No lower extremity tenderness. Integumentary: No cyanosis. Neurological: The patient is awake and alert. No focal deficits. Psychiatric: Normal affect. Medical Decision & Procedures ER Provider Diagnostic Interpretation: CT results as stated below per my review and radiologist interpretation. ABDOMEN AND PELVIS CT WITH ORAL CONTRAST CT DOSE: 349.94 mGy.cm HISTORY: Pain eval for colitis TECHNIQUE: Multiaxial CT images of the abdomen and pelvis were performed following the use of oral contrast. COMPARISON STUDY: 05/03/2017 FINDINGS: Lung bases are clear. Liver spleen and pancreas are uniform. Gallbladder is minimally distended. Kidneys negative for calcification or hydronephrosis. Bowel pattern within the abdomen and pelvis is nonobstructive throughout. No evidence for abscess collection or obstruction. Infiltrative change of the right lower quadrant the prior study has resolved. Slight bladder wall thickening has improved. No significant free fluid within the pelvic cul-de-sac. IMPRESSION: No acute process of the abdomen or pelvis. Improved exam compared to the prior study. Electronically signed by: Drew Chow M.D. 05/17/2017 5:22 PM Dictated Date/Time: 05/17/2017 5:19 PM Laboratory Results 05/17/17 15:00 Red Blood Count 5.31, Mean Corpuscular Volume 89.3, Mean Corpuscular Hemoglobin 28.8, Mean Corpuscular Hemoglobin Concent 32.3, Mean Platelet Volume 11.4, Neutrophils (%) (Auto) 61.1, Lymphocytes (%) (Auto) 27.7, Monocytes (%) (Auto) 8.3, Eosinophils (%) (Auto) 2.3, Basophils (%) (Auto) 0.3, Neutrophils # (Auto) 7.31, Lymphocytes # (Auto) 3.32, Monocytes # (Auto) 1.00, Eosinophils # (Auto) 0.28, Basophils # (Auto) 0.04 05/17/17 15:00 Test 05/17/17 00:00 05/17/17 15:00 Urine Color YELLOW Urine Appearance CLEAR (CLEAR) Urine pH 5.0 (4.5-7.5) Urine Specific Zoe 1.019 (1.000-1.030) Urine Protein 1+ (NEG) Urine Glucose (UA) NEG (NEG) Urine Ketones NEG (NEG) Urine Occult Blood TRACE (NEG) Urine Nitrite NEG (NEG) Urine Bilirubin NEG (NEG) Urine Urobilinogen NEG (NEG) Urine Leukocyte Esterase SMALL (NEG) Urine WBC (Auto) 10-30 /hpf (0-5) Urine RBC (Auto) 0-4 /hpf (0-4) Urine Hyaline Casts (Auto) >30 /lpf (0-5) Urine Epithelial Cells (Auto) 20-30 /lpf (0-5) Urine Bacteria (Auto) NEG (NEG) Urine Pathogenic Casts 1-5 GRANULAR CASTS /lpf (0) White Blood Count 11.98 K/uL (4.8-10.8) Red Blood Count 5.31 M/uL (4.7-6.1) Hemoglobin 15.3 g/dL (14.0-18.0) Hematocrit 47.4 % (42-52) Mean Corpuscular Volume 89.3 fL (80-100) Mean Corpuscular Hemoglobin 28.8 pg (25-34) Mean Corpuscular Hemoglobin Concent 32.3 g/dl (32-36) Platelet Count 212 K/uL (130-400) Mean Platelet Volume 11.4 fL (7.4-10.4) Neutrophils (%) (Auto) 61.1 % Lymphocytes (%) (Auto) 27.7 % Monocytes (%) (Auto) 8.3 % Eosinophils (%) (Auto) 2.3 % Basophils (%) (Auto) 0.3 % Neutrophils # (Auto) 7.31 K/uL (1.4-6.5) Lymphocytes # (Auto) 3.32 K/uL (1.2-3.4) Monocytes # (Auto) 1.00 K/uL (0.11-0.59) Eosinophils # (Auto) 0.28 K/uL (0-0.5) Basophils # (Auto) 0.04 K/uL (0-0.2) RDW Standard Deviation 49.5 fL (36.4-46.3) RDW Coefficient of Variation 15.3 % (11.5-14.5) Immature Granulocyte % (Auto) 0.3 % Immature Granulocyte # (Auto) 0.03 K/uL (0.00-0.02) Anion Gap 12.0 mmol/L (3-11) Est Creatinine Clear Calc Drug Dose 47.9 ml/min Estimated GFR () 52.7 Estimated GFR (Non- 45.5 BUN/Creatinine Ratio 8.2 (10-20) Calcium Level 10.7 mg/dl (8.5-10.1) Total Bilirubin 0.5 mg/dl (0.2-1) Direct Bilirubin 0.2 mg/dl (0-0.2) Aspartate Amino Transf (AST/SGOT) 47 U/L (15-37) Alanine Aminotransferase (ALT/SGPT) 57 U/L (12-78) Alkaline Phosphatase 147 U/L (45-117) Total Protein 7.9 gm/dl (6.4-8.2) Albumin 3.6 gm/dl (3.4-5.0) Lipase 307 U/L (73-393) Laboratory results as reviewed by me. Medications Administered Medications (Trade) Dose Ordered Sig/Tisha Route Start Time Stop Time Status Last Admin Dose Admin Morphine Sulfate (MoRPHine SULFATE INJ) 4 mg ONE STAT IV 05/17/17 14:18 05/17/17 14:21 DC 05/17/17 15:08 4 MG Ondansetron HCl (Zofran Inj) 4 mg NOW STAT IV 05/17/17 14:18 05/17/17 14:21 DC 05/17/17 15:07 4 MG Sodium Chloride 1,000 ml @ 999 mls/hr Q1H1M STAT IV 05/17/17 14:18 05/17/17 15:18 DC 05/17/17 15:08 999 MLS/HR Hydrocortisone Sodium Succinate (Solu-Cortef IV) 100 mg NOW STAT IV 05/17/17 15:30 05/17/17 15:32 DC 05/17/17 15:39 100 MG Oxycodone HCl (Roxicodone Immediate Rel 5MG Home Pack) 1 homepack UD ONCE PO 05/17/17 18:00 05/17/17 18:01 DC 05/17/17 18:00 1 HOMEPACK ED Course 1410: The patient was evaluated in room B2. A complete history and physical exam was performed. 1418: Ordered Sodium Chloride 1,000 ml @ 999 mls/hr IV, Zofran Inj 4 mg IV, Morphine Sulfate 4 mg IV. 1530: Ordered Hydrocortisone Sodium Succinate 100 mg IV. 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 175: I went over the test results with the patient. He states that he is feeling better. 1800: Ordered Oxycodone HCl 1 homepack PO. 1804: Upon reevaluation, the patient appeared to have improvement of his symptoms. I discussed tonight's findings with him. He verbalized agreement of the treatment plan. He was discharged home. Medical Decision This is a 62-year-old male who presents with diarrhea and lower abdominal pain. Differential diagnosis includes C. difficile colitis, dehydration, enteritis, electrolyte abnormality, exacerbation of ulcerative colitis. I did perform a limited focused review of portions of the patient's old chart on the electronic medical record. The patient was admitted on May 03 for C. diff colitis and an exacerbation of ulcer colitis. The patient was discharged on vancomycin. Blood Pressure Screening: Patient was found to have normal blood pressure on screening and does not require follow-up. Medication Reconciliation: I attest that I have personally reviewed the patient' s current medication list. I did evaluate the patient as noted above. The patient is presenting with persistent diarrhea and lower abdominal pain since he was diagnosed with C. difficile. He states he has had no improvement of his symptoms despite being treated with vancomycin. He denies any new symptoms but feels he is very dehydrated as he is unable to keep up with the fluid loss from the diarrhea. He states he hasn't been eating any solids but only drinks liquids because he has no appetite. IV access was established. I did order and personally review the patient's urinalysis as described above. The findings are equivocal. He is not having any urinary symptoms or CVA tenderness. At this time it did not wish to come this picture by adding more antibiotics and sent a urine culture. The patient and his are happy with this plan. I did order and review the patient's blood work as noted in the electronic medical record. His white blood cell count is slightly elevated. Creatinine is also elevated. He was given normal saline IV. I did order a CT of the abdomen and pelvis. I did review the images myself as well as the radiology report as described above. There is no acute abnormality. I did treat patient with IV morphine and Zofran. On reassessment he is feeling better. I did discuss the test results with him. He was advised follow up closely with his regular doctor and to try some solid foods to help from us a stool. He was discharged in good condition. He was given a OxyIR home pack. Impression Primary Impression: Dehydration Additional Impressions: Diarrhea Lower abdominal pain Scribe Attestation The scribe's documentation has been prepared under my direct and personally reviewed by me in its entirety. I confirm that the note above accurately reflects all work, treatment, procedures, and medical decision making performed by me. Departure Information Dispostion Home / Self-Care Referrals Tony Lin D.O. (PCP) Forms HOME CARE DOCUMENTATION FORM, IMPORTANT VISIT INFORMATION, WORK / SCHOOL INSTRUCTIONS Patient Instructions ED Dehydration, [facility] Additional Instructions You have been examined and treated today on an emergency basis only. This is not a substitute for, or an effort to provide, complete comprehensive medical care. It is impossible to recognize and treat all injuries or illnesses in a single emergency department visit. It is therefore important that you follow up closely with your physician in 2 days per your appointment. Return for worsening symptoms or if you develop fever, vomiting, or any other concerning symptoms. Problem Qualifiers Additional Impressions: Diarrhea Diarrhea type: unspecified type Qualified Codes: R19.7 - Diarrhea, unspecified
[2017-05-21] MEDS ORDERED: HYD10 PO ×2 (09:58→15:41)
[2017-05-21] MEDS ORDERED: RANI150T3 PO (09:58)
[2017-05-21] MEDS ORDERED: ASPCH81X PO (10:03)
[2017-05-21] MEDS ORDERED: LISI-729 PO (10:03)
[2017-05-21] MEDS ORDERED: ISOS60TA25 PO (10:03)
[2017-05-21] MEDS ORDERED: ALPR-411 PO (10:03)
[2017-05-21] MEDS ORDERED: INSU100I SC (10:45)
[2017-05-21] MEDS ORDERED: INSDGI SC (11:29)
[2017-05-21] MEDS ORDERED: MIRT30TA2 PO (11:29)
[2017-05-21] MEDS ORDERED: SPRIN/30 INH (11:29)
[2017-05-21] MEDS ORDERED: ATOR-26 PO (15:41)
[2017-05-21] MEDS ORDERED: DEXA4INJ32 IM (15:41)
[2017-05-21] MEDS ORDERED: FLUT1INH PO (15:41)
[2017-05-31] MEDS ORDERED: CTP1 PO (10:53)
[2017-05-31] MEDS ORDERED: AMT25 PO (10:53)
[2017-05-31] MEDS ORDERED: ENT3 PO (10:53)
[2017-05-31] MEDS ORDERED: CHOL4POW11 PO (10:53)
[2017-05-31] MEDS ORDERED: PPTBS PO (10:53)
[2017-05-31] MEDS ORDERED: DIPH-416 PO (10:53)
[2017-05-31] MEDS ORDERED: OXYC7.5T62 PO (10:53)
[2017-05-31] MEDS ORDERED: MGNO400 PO (10:53)
[2017-05-31] MEDS ORDERED: POTA1POW PO (11:17)
[2017-09-16] MEDS ORDERED: CHOL4POW11 PO (08:54)
[2017-09-16] MEDS ORDERED: SLWMEC PO (08:54)
[2017-09-16] MEDS ORDERED: LMTHP PO (08:54)
== END 2017-05-17 18:14 | disposition home or self-care (01) ==
LOC: C.EDB 13:37
DX: E86.0 Dehydration (principal); R19.7 Diarrhea, unspecified; R10.30 Lower abdominal pain, unspecified; E11.9 Type 2 diabetes mellitus without complications; E78.00 Pure hypercholesterolemia, unspecified; F33.9 Major depressive disorder, recurrent, unspecified; I10 Essential (primary) hypertension; F17.200 Nicotine dependence, unspecified, uncomplicated; Z98.61 Coronary angioplasty status; Z83.3 Family history of diabetes mellitus; Z82.49 Family history of ischemic heart disease and other diseases of the circulatory system; Z79.4 Long term (current) use of insulin; Z79.82 Long term (current) use of aspirin; Z79.899 Other long term (current) drug therapy

== ENCOUNTER 2017-05-21 18:27 | Inpatient (IN) | payer OTHER ==
[~2017-05-21] VITALS: Ht 177.8 cm; Wt 71.5 kg
[~2017-05-21 18:27] MED LIST changes: +ALPR-411 PO; +ASPCH81X PO; +ATOR-26 PO; +DEXA4INJ38 IM; +FLUT1INH PO; +HYD10 PO; +INSDGI SC; +INSU100I SC; +ISOS60TA25 PO; +LISI-729 PO; +MIRT30TA2 PO; +RANI150T3 PO; +RASPBERRY SYRUP 5 ML UDP PO SCH; +SPRIN/30 INH; -SULF-183 PO; +VANC1CAP3 PO; -VANC5CAP PO
[2017-05-21] MEDS ORDERED: ONDANSETRON INJ 2 MG/ML 2 ML VIAL IV STA (18:50)
[2017-05-21] MEDS ORDERED: MoRPHine SULFATE 10 MG/ML CARP/VIAL IV STA ×2 (18:50→20:22)
[2017-05-21] MEDS ORDERED: METHYLPREDNISOLONE IV 20 MG in SYRINGE 0 ML IV SCH (19:00)
[2017-05-21] MEDS ORDERED: HYDROCORTISONE IV 25 MG in SYRINGE 0 ML IV SCH (19:00)
[2017-05-21 19:21] LABS: BASO % 0.3 %; BASO ABS # 0.02 K/uL (0-0.2); COMPLETE YES; EOS % 3.3 %; HEMATOCRIT 42.6 % (42-52); IG% 0.4 %; LYMPH % 28.2 %; LYMPH ABS # 2.08 K/uL (1.2-3.4); MEAN CELL VOLUME 88.6 fL (80-100); MEAN CORPUSCULAR HEMOGLOBIN 29.5 pg (25-34); MEAN CORPUSCULAR HGB CONC 33.3 g/dl (32-36); MEAN PLATELET VOLUME 10.9 fL (7.4-10.4); MONO % 11.8 %; PLATELET COUNT 210 K/uL (130-400); RED BLOOD COUNT 4.81 M/uL (4.7-6.1); WHITE BLOOD COUNT 7.37 K/uL (4.8-10.8)
[2017-05-21] MEDS ORDERED: METO50TA16 PO (19:30)
[2017-05-21] MEDS ORDERED: HYDR-3124 PO (19:30)
[2017-05-21] MEDS ORDERED: FLUO20CA36 PO (19:30)
[2017-05-21] MEDS ORDERED: MISCCAP80 PO (19:30)
[2017-05-21] MEDS ORDERED: CHOL4POW11 PO (19:30)
[2017-05-21] MEDS ORDERED: VANC5CAP PO (19:30)
[2017-05-21] MEDS ORDERED: DIPH-416 PO (19:30)
[2017-05-21] MEDS ORDERED: MCRK20 PO (19:30)
[2017-05-21] MEDS ORDERED: ALBINS/ INH (19:30)
[2017-05-21] MEDS ORDERED: OXYC-57 PO (19:30)
[2017-05-21 19:41] LABS: BUN/CREATININE RATIO 13.3 (10-20); CALCIUM 10.5 mg/dl (8.5-10.1); CREATININE 1.5 mg/dl (0.60-1.40); POTASSIUM 3.5 mmol/L (3.5-5.1)
--- NOTE | 2017-05-21 20:07 | DIAGNOSTIC IMAGING REPORT ---
PA CHEST RADIOGRAPH AND LEFT LATERAL DECUBITUS AND SUPINE AP RADIOGRAPHS OF THE ABDOMEN CLINICAL HISTORY: Diarrhea. COMPARISON STUDY: Chest radiograph May 03, [address] of the abdomen and pelvis May 17, 2017. FINDINGS: Lung volumes are normal. Lungs are clear. There is no pneumothorax or pleural effusion. Pulmonary vascularity is normal. There is no consolidation. There is no free air. The bowel gas pattern is normal. Pelvic calcifications reflect phleboliths. 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 IMPRESSION: 1. No free air or evidence of bowel obstruction. 2. No acute cardiopulmonary findings. Electronically signed by: Zach Muniz M.D. 05/21/2017 8:05 PM Dictated Date/Time: 05/21/2017 8:04 PM
[2017-05-21 20:43] LABS: MAGNESIUM 1.8 mg/dl (1.8-2.4)
[2017-05-21] MEDS ORDERED: SODIUM CHLORIDE 0.9% 1000ML 1,000 ML IV STA (20:59)
[2017-05-21] MEDS ORDERED: HYDROCORTISONE SOD SUCCINATE 100 MG/2 ML VIAL IV SCH (22:24)
[2017-05-21] MEDS ORDERED: IV FLUIDS COMPLETED PRN (22:30)
[2017-05-21] MEDS ORDERED: DEXTROSE 50% 50 ML SYR IV PRN (23:00)
[2017-05-21] MEDS ORDERED: PROMETHAZINE HCL INJ 12.5 MG in SODIUM CHLORIDE 0.9% 50ML 50 ML IV PRN (23:00)
[2017-05-21] MEDS ORDERED: GLUCOSE 40% GEL 15 GM TUBE PO PRN (23:00)
[2017-05-21] MEDS ORDERED: ALPRAZOLAM 0.5 MG TAB PO PRN (23:00)
[2017-05-21] MEDS ORDERED: GLUCAGON FOR INJ 1 MG VIAL SQ PRN (23:00)
[2017-05-21] MEDS ORDERED: GLUCOSE 10 TABS/TUBE PO PRN (23:00)
[2017-05-21] MEDS ORDERED: ACETAMINOPHEN 325 MG TAB PO PRN (23:00)
[2017-05-21] MEDS ORDERED: LORAZEPAM 2 MG/ML 1 ML VIAL IV PRN (23:00)
[2017-05-21] MEDS ORDERED: MIRTAZAPINE TAB 15 MG TAB PO PRN (23:00)
--- NOTE | 2017-05-21 23:12 | DIAGNOSTIC IMAGING REPORT ---
CT OF THE ABDOMEN AND PELVIS WITHOUT CONTRAST CLINICAL HISTORY: Worsening abdominal pain and diarrhea. COMPARISON STUDY: CT of the abdomen and pelvis May 17, 2017 and abdominal series performed earlier today. TECHNIQUE: Axial images of the abdomen and pelvis were obtained without IV contrast. Images were reviewed in the axial, sagittal, and coronal planes. FINDINGS: Evaluation of the abdomen and pelvis is suboptimal on this unenhanced exam. The liver, spleen, adrenal glands and pancreas are unremarkable. There is no biliary or pancreatic ductal dilatation. There is no peripancreatic or pericholecystic infiltration. A water attenuation 1.6 cm right renal lesion likely reflects a cyst, as shown on prior contrast enhanced exam. There is no hydronephrosis. There is moderate plaque of the abdominal aorta which is ectatic. There is no aneurysmal dilatation. There is no evidence for a bowel obstruction. The appendix is normal. Portions of the colon are fluid-filled. 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 IMPRESSION: 1. No bowel wall thickening. Mildly fluid-filled colon which may reflect a diarrheal state. 2. Normal appendix. Electronically signed by: Zach Muniz M.D. 05/21/2017 11:11 PM Dictated Date/Time: 05/21/2017 11:04 PM
--- NOTE | 2017-05-21 23:34 | EMERGENCY ROOM VISIT NOTE ---
History Report prepared by Tisha: Dinorah Zhang Under the Supervision of: Dr. Pete Calderon D.O. First contact with patient: 18:29 Chief Complaint: DIARRHEA Stated Complaint: SEVERE DIARRHEA, ABD PAIN, DEHYDRATION- REFERRED History of Present Illness The patient is a 62 year old male who presents to the Emergency Room with complaints of constant diarrhea beginning a week and a half ago. The patient states that he has been having abdominal pain over the last 5 weeks that continues to hurt but is unchanged from his previous visits. He reports that he was seen here 4 days ago for dehydration and was sent home. He notes that he has had C-Diff recently and is on oral Vancomycin and tested negative for C- Diff yesterday. The patient complains of weakness and loss of appetite. He notes that he has had 20 episodes of diarrhea in a 24 hour period. The patient denies any nausea, vomiting, blood in the stool, fever, previous abdominal surgeries. He reports that he has been able to keep liquid down. He notes a history of [place]'s disease and has been taking his steroids but has not had any yet today. Patient was referred into the ER by Dr. Keith for admission. Source of History: patient Onset: 1 week and a half ago Position: other (global) Symptom Intensity: 20 episodes in 24 hours Quality: other (diarrhea) Timing: constant Associated Symptoms: + abdominal pain, + weakness, No fevers, No nausea, No vomiting Note: The patient denies any blood in the stool, previous abdominal surgeries Review of Systems See HPI for pertinent positives & negatives. A total of 10 systems reviewed and were otherwise negative. Past Medical & Surgical Medical Problems: (1) Adrenal insufficiency (2) ARF (acute renal failure) (3) Diabetes (4) Hypercholesteremia (5) Hypertension (6) Major depressive disorder, recurrent episode with anxious distress (7) Ulcerative colitis Surgical Problems: (1) H/O percutaneous transluminal coronary angioplasty (2) Stented coronary artery Family History Cancer Diabetes mellitus Heart disease Hypertension Social History Smoking Status: Current Every Day Smoker Alcohol Use: none Drug Use: none Marital Status: Housing Status: lives with family Occupation Status: retired Current/Historical Medications Scheduled Aspirin (Aspirin Chewable), 81 MG PO QAM Atorvastatin (Lipitor), 1 TAB PO DAILY Cholestyramine (Questran), 4 GM PO HS Diphenoxylate/Atropine (Lomotil), 1 TAB PO TID Fluoxetine HCl (Fluoxetine HCl), 20 MG PO QAM Fluticasone Furoate-Vilanterol (Breo Ellipta), 1 INHA PO DAILY Hydrocortisone (Cortef), 20 MG PO QAM Hydrocortisone (Cortef), 10 TAB PO QPM Insulin Glargine (Lantus), 10-20 UNITS SC UD Insulin Lispro (Human) (Humalog), SC ACHS Isosorbide Mononitrate Ext Rel (Imdur Ext Rel), 60 MG PO QAM Lisinopril (Zestril), 5 MG PO QAM Metoprolol Tartrate (Lopressor) (Lopressor), 50 MG PO BID Mirtazapine Soltab (Remeron Soltab), 30 MG PO HS Potassium Chloride (Klor-Con M20), 20 MEQ PO DAILY Probiotic Product (Probiotic), 1 CAP PO DAILY Ranitidine Hcl (Zantac), 150 MG PO BID Tiotropium [place] (Spiriva Handihaler), 1 CAP INH DAILY Vancomycin Hcl (Vancomycin), 125 MG PO UD Scheduled PRN Albuterol Hfa (Ventolin Hfa), 3-4 PUFFS INH QID PRN for sob/wheezing Albuterol Sulf (Proventil 0.083% 2.5MG/3ML), 2.5 MG INH QID PRN for Wheezing Alprazolam (Xanax), 0.5 MG PO HS PRN for Sleep Dexamethasone Sod Phos (Dexamethasone Sodium Phos), 1 ML IM DIRECTED PRN for emergency treatment Hydroxyzine Hcl (Atarax), 50 MG PO HS PRN for ANXIETY/SLEEPING Ipratropium-Albuterol (Duoneb), 1 TREATMENT INH QID PRN for sob/wheezing Oxycodone/Acetaminophen 5MG/325MG (Percocet 5MG/325MG), 1 TABLET PO Q6H PRN for Pain Allergies Coded Allergies: Azathioprine (Verified Adverse Reaction, Unknown, RENAL COMPLICATIONS, ) Physical Exam Vital Signs Date Time Temp Pulse Resp B/P (MAP) Pulse Ox O2 Delivery O2 Flow Rate FiO2 05/21/17 20:44 77 05/21/17 20:36 74 16 93/51 96 Room Air 05/21/17 19:57 80 128/76 05/21/17 19:17 74 16 114/71 98 Room Air 05/21/17 18:30 36.3 83 16 113/83 99 Room Air Physical Exam GENERAL: sitting up in bed, disheveled, chronically ill appearing, alert, well nourished, no distress, non-toxic EYE EXAM: normal conjunctiva OROPHARYNX: no exudate, no erythema, lips, buccal mucosa, and tongue normal and mucous membranes are moist NECK: supple, no nuchal rigidity, no adenopathy, non-tender LUNGS: Clear to auscultation. Normal chest wall mechanics HEART: no murmurs, S1 normal and S2 normal ABDOMEN: abdomen soft, lower abdominal tenderness, normo-active bowel sounds, no masses, no rebound or guarding. BACK: Back is symmetrical on inspection and there is no deformity, no midline tenderness, no CVA tenderness. UPPER EXTREMITIES: upper extremities are grossly normal. LOWER EXTREMITIES: No pitting edema. NEURO EXAM: Normal sensorium, cranial nerves II-XII grossly intact, normal speech, no gross weakness of arms, no gross weakness of legs. Medical Decision & Procedures ER Provider Diagnostic Interpretation: Radiology results as stated below per my review and the radiologist's interpretation: PA CHEST RADIOGRAPH AND LEFT LATERAL DECUBITUS AND SUPINE AP RADIOGRAPHS OF THE ABDOMEN FINDINGS: Lung volumes are normal. Lungs are clear. There is no pneumothorax or pleural effusion. Pulmonary vascularity is normal. There is no consolidation. There is no free air. The bowel gas pattern is normal. Pelvic calcifications reflect phleboliths. 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 IMPRESSION: 1. No free air or evidence of bowel obstruction. 2. No acute cardiopulmonary findings. Electronically signed by: Zach Muniz M.D. 05/21/2017 8:05 PM Dictated Date/Time: 05/21/2017 8:04 PM Laboratory Results 05/21/17 18:10 Red Blood Count 4.81, Mean Corpuscular Volume 88.6, Mean Corpuscular Hemoglobin 29.5, Mean Corpuscular Hemoglobin Concent 33.3, Mean Platelet Volume 10.9, Neutrophils (%) (Auto) 56.0, Lymphocytes (%) (Auto) 28.2, Monocytes (%) (Auto) 11.8, Eosinophils (%) (Auto) 3.3, Basophils (%) (Auto) 0.3, Neutrophils # (Auto ) 4.13, Lymphocytes # (Auto) 2.08, Monocytes # (Auto) 0.87, Eosinophils # (Auto ) 0.24, Basophils # (Auto) 0.02 05/21/17 18:10 Test 05/21/17 18:10 White Blood Count 7.37 K/uL (4.8-10.8) Red Blood Count 4.81 M/uL (4.7-6.1) Hemoglobin 14.2 g/dL (14.0-18.0) Hematocrit 42.6 % (42-52) Mean Corpuscular Volume 88.6 fL (80-100) Mean Corpuscular Hemoglobin 29.5 pg (25-34) Mean Corpuscular Hemoglobin Concent 33.3 g/dl (32-36) Platelet Count 210 K/uL (130-400) Mean Platelet Volume 10.9 fL (7.4-10.4) Neutrophils (%) (Auto) 56.0 % Lymphocytes (%) (Auto) 28.2 % Monocytes (%) (Auto) 11.8 % Eosinophils (%) (Auto) 3.3 % Basophils (%) (Auto) 0.3 % Neutrophils # (Auto) 4.13 K/uL (1.4-6.5) Lymphocytes # (Auto) 2.08 K/uL (1.2-3.4) Monocytes # (Auto) 0.87 K/uL (0.11-0.59) Eosinophils # (Auto) 0.24 K/uL (0-0.5) Basophils # (Auto) 0.02 K/uL (0-0.2) RDW Standard Deviation 49.2 fL (36.4-46.3) RDW Coefficient of Variation 15.3 % (11.5-14.5) Immature Granulocyte % (Auto) 0.4 % Immature Granulocyte # (Auto) 0.03 K/uL (0.00-0.02) Anion Gap 10.0 mmol/L (3-11) Est Creatinine Clear Calc Drug Dose 51.1 ml/min Estimated GFR () 57.0 Estimated GFR (Non- 49.2 BUN/Creatinine Ratio 13.3 (10-20) Lactic Acid Level 1.5 mmol/L (0.4-2.0) Calcium Level 10.5 mg/dl (8.5-10.1) Magnesium Level 1.8 mg/dl (1.8-2.4) Total Bilirubin 0.5 mg/dl (0.2-1) Direct Bilirubin 0.2 mg/dl (0-0.2) Aspartate Amino Transf (AST/SGOT) 16 U/L (15-37) Alanine Aminotransferase (ALT/SGPT) 30 U/L (12-78) Alkaline Phosphatase 109 U/L (45-117) Total Protein 7.4 gm/dl (6.4-8.2) Albumin 3.5 gm/dl (3.4-5.0) Lipase 246 U/L (73-393) Laboratory results per my review. Medications Administered Medications (Trade) Dose Ordered Sig/Tisha Route Start Time Stop Time Status Last Admin Dose Admin Ondansetron HCl (Zofran Inj) 4 mg NOW STAT IV 05/21/17 18:50 05/21/17 18:52 DC 05/21/17 19:12 4 MG Morphine Sulfate (MoRPHine SULFATE INJ) 6 mg NOW STAT IV 05/21/17 18:50 05/21/17 18:52 DC 05/21/17 19:12 6 MG Hydrocortisone Sodium Succinate 25 mg/Syringe 0.5 ml @ 4 mls/min NOW IV 05/21/17 19:00 06/20/17 18:59 05/21/17 19:56 4 MLS/MIN Morphine Sulfate (MoRPHine SULFATE INJ) 6 mg NOW STAT IV 05/21/17 20:22 05/21/17 20:23 DC 05/21/17 20:36 6 MG Sodium Chloride 1,000 ml @ 999 mls/hr Q1H1M STAT IV 05/21/17 20:59 05/21/17 21:59 DC 05/21/17 20:59 999 MLS/HR ED Course ED COURSE: Vital signs were reviewed and showed hypertension The patients medical record was reviewed The above diagnostic studies were performed and reviewed. ED treatments and interventions as stated above. 9: The patient was evaluated in room B12B. A complete history and physical examination was performed. 0: Morphine Sulfate 6mg IV, Zofran Inj 4mg IV. 0: Hydrocortisone Sodium Succinate 25mg/Syringe 0.5ml @ 4mls/min IV, Methylprednisolone Sodium Succinate 20mg/Syringe 0.32ml @ 1.5mls/min IV. 2021: I reevaluated and updated the patient. 2058: Sodium Chloride 1000 ml @ 999 mls/hr IV. 2111: I reviewed the patient's case with Dr. Hernandez. He will evaluate the patient for further management. 2131: Upon reevaluation, the patient is doing well.I discussed my findings with the patient and he understands and agrees with the treatment plan. Based on the patients age, coexisting illnesses, exam and lab findings the decision to treat as an inpatient was made. The patient remained stable while under my care. The patient will be evaluated for further management. Medical Decision Differential diagnoses includes but is not limited to gastritis, peptic ulcer disease, GERD, gallbladder disease, pancreatitis, small bowel obstruction, acute coronary syndrome, pericarditis, ischemic bowel, irritable bowel disease, irritable bowel syndrome, appendicitis, diverticulitis, malignancy, hernia, urinary tract infection, torsion, perforation, trauma, infectious. Blood Pressure Screening: The patient was found to have a slightly elevated blood pressure due to circumstances. I do not believe that the patient requires hypertension monitoring. Medication Reconciliation: I attest that I have personally reviewed the patient' s current medication list. Patient is a 60-year-old male who was referred into the ER by Dr. Keith for admission for persistent diarrhea over the past 5 weeks. He has had chronic abdominal pain secondary to his UC. He was found previously to have a microscopic colitis. He has been following with GI regularly. He has not been eating and drinking. BMP shows a CO2 of 18. LFTs, bilirubin and lipase are normal. CO2 is low secondary to diarrhea. He is given 2 L normal saline. He is in its internal medicine following IV narcotics and fluids. Consults Time Called: 2109 Consulting Physician: Dr. Priscilla Sorto Returned Call: 2111 I reviewed the patient's case with Dr. Hernandez. He will evaluate the patient for further management. Impression Primary Impression: Colitis Additional Impressions: Abdominal pain Hypotension Scribe Attestation The scribe's documentation has been prepared under my direction and personally reviewed by me in its entirety. I confirm that the note above accurately reflects all work, treatment, procedures, and medical decision making performed by me. Departure Information Dispostion Being Evaluated By Hospitalist Tony Nagy D.O. (PCP) Patient Instructions [facility] Problem Qualifiers Additional Impressions: Abdominal pain Abdominal location: unspecified location Qualified Codes: R10.9 - Unspecified abdominal pain Hypotension Hypotension type: unspecified hypotension type Qualified Codes: I95.9 - Hypotension, unspecified
[2017-05-21] MEDS ORDERED: INSULIN ASPART 100 UNITS/ML 3 ML PEN SC SCH (23:50)
[2017-05-21] MEDS ORDERED: INSULIN GLARGINE SOLOSTAR 100 UNITS/ML 3 ML PEN SC SCH (23:50)
[2017-05-21] MEDS ORDERED: POTASSIUM CHLORIDE 10 MEQ TABCR PO ONE (23:50)
[2017-05-22] VITALS (13 sets, daily range): BP systolic 100–166; BP diastolic 64–90; PULSE 55–78; TEMP 36.4–36.5; O2SAT 97–100; BMI 22.6
[2017-05-22] MEDS ORDERED: VANCOMYCIN HCL 125 MG/2.5ML SOLN PO SCH
[2017-05-22] MEDS ORDERED: NSS + 20MEQ KCL 1000ML 1,000 ML IV ONE
[2017-05-22] MEDS ORDERED: HYDROCORTISONE IV 100 MG in SYRINGE 0 ML IV SCH (00:30)
[2017-05-22] MEDS: OXYCODONE/ACETAMINOPHEN 5-325 TAB PO PRN ×3 (00:42→13:19)
--- NOTE | 2017-05-22 03:41 | History and Physical ---
History & Physical Date & Time of Service: May 22, 2017 at 03:41 Chief Complaint: Abdominal Pain Primary Care Physician: Tony Lin D.O. History of Present Illness Source: patient, clinic records, hospital records Recent confinement 2 weeks ago for sepsis secondary C. difficile. Patient discharged on PO vancomycin course. Patient claims he still had bad abdominal pain and diarrhea upon discharge from hospital. Seen at the emergency room last week for these symptoms. Repeat C. difficile negative No acute process on CT. Patient had follow-up with [facility] a few days ago. Diarrhea thought to be multifactorial as per note - microscopic colitis, C. difficile, DM diarrhea, pancreatic insufficiency. Vanco taper, antidiarrheal, pancreatic enzyme, cholestyramine prescribed. Patient admits to worsening of achy lower abdominal pain symptoms since different from usual bowel abdominal pain. Some nausea and emesis. Continuous diarrhea greater than 5 times a day. 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 Admits to not being able to take his pills yesterday because of being sick.. Past Medical/Surgical History Medical Problems: (1) Adrenal insufficiency Status: Chronic (2) ARF (acute renal failure) Status: Resolved (3) Diabetes Status: Chronic (4) Hypercholesteremia Status: Chronic (5) Hypertension Status: Chronic Surgical Problems: (1) H/O percutaneous transluminal coronary angioplasty Status: Resolved (2) Stented coronary artery Status: Resolved Family History Cancer Diabetes mellitus Heart disease Hypertension Social History Smoking Status: Current Every Day Smoker Alcohol Use: occasionally Drug Use: none Marital Status: Housing status: lives alone Occupational Status: retired, disabled Immunizations History of Influenza Vaccine: Yes Influenza Vaccine Date: Aug 20, 2013 History of Tetanus Vaccine?: Yes Tetanus Immunization Date: Aug 20, 2013 History of Pneumococcal: Yes History of Hepatitis B Vaccine: No Allergies Coded Allergies: Azathioprine (Verified Adverse Reaction, Unknown, RENAL COMPLICATIONS, ) Home Medications Scheduled Aspirin (Aspirin Chewable), 81 MG PO QAM Atorvastatin (Lipitor), 1 TAB PO DAILY Cholestyramine (Questran), 4 GM PO HS Diphenoxylate/Atropine (Lomotil), 1 TAB PO TID Fluoxetine HCl (Fluoxetine HCl), 20 MG PO QAM Fluticasone Furoate-Vilanterol (Breo Ellipta), 1 INHA PO DAILY Hydrocortisone (Cortef), 20 MG PO QAM Hydrocortisone (Cortef), 10 MG PO QPM Insulin Glargine (Lantus), 10-20 UNITS SC UD Insulin Lispro (Human) (Humalog), SC ACHS Isosorbide Mononitrate Ext Rel (Imdur Ext Rel), 60 MG PO QAM Lisinopril (Zestril), 5 MG PO QAM Metoprolol Tartrate (Lopressor) (Lopressor), 50 MG PO BID Mirtazapine Soltab (Remeron Soltab), 30 MG PO HS Potassium Chloride (Klor-Con M20), 20 MEQ PO DAILY Probiotic Product (Probiotic), 1 CAP PO DAILY Ranitidine Hcl (Zantac), 150 MG PO BID Tiotropium [place] (Spiriva Handihaler), 1 CAP INH DAILY Vancomycin Hcl (Vancomycin), 125 MG PO UD Scheduled PRN Albuterol Hfa (Ventolin Hfa), 3-4 PUFFS INH QID PRN for sob/wheezing Albuterol Sulf (Proventil 0.083% 2.5MG/3ML), 2.5 MG INH QID PRN for Wheezing Alprazolam (Xanax), 0.5 MG PO HS PRN for Sleep Dexamethasone Sod Phos (Dexamethasone Sodium Phos), 1 ML IM DIRECTED PRN for emergency treatment Hydroxyzine Hcl (Atarax), 50 MG PO HS PRN for ANXIETY/SLEEPING Ipratropium-Albuterol (Duoneb), 1 TREATMENT INH QID PRN for sob/wheezing Oxycodone/Acetaminophen 5MG/325MG (Percocet 5MG/325MG), 1 TABLET PO Q6H PRN for Pain Review of Systems as per HPI, all other ROS negative Physical Exam Vital Signs Date Time Temp Pulse Resp B/P (MAP) Pulse Ox O2 Delivery O2 Flow Rate FiO2 05/22/17 00:06 36.4 67 16 117/76 (90) 97 Room Air 05/21/17 22:40 72 16 105/72 99 05/21/17 20:44 77 05/21/17 20:36 74 16 93/51 96 Room Air 05/21/17 19:57 80 128/76 05/21/17 19:17 74 16 114/71 98 Room Air 05/21/17 18:30 36.3 83 16 113/83 99 Room Air General Appearance: + pertinent finding (anxious uncomfortable, recumbent on his right side) Head: normocephalic Eyes: normal inspection Neck: supple Respiratory/Chest: + decreased breath sounds Cardiovascular: regular rate, rhythm Abdomen/GI: + tenderness, + pertinent finding (hypogastrium) Extremities/Musculoskelatal: non-tender Neurologic/Psych: alert, oriented x 3 Diagnostics Laboratory Results Results Past 24 Hours Test 05/21/17 18:10 05/22/17 00:01 Range/Units White Blood Count 7.37 4.8-10.8 K/uL Red Blood Count 4.81 4.7-6.1 M/uL Hemoglobin 14.2 14.0-18.0 g/dL Hematocrit 42.6 42-52 % Mean Corpuscular Volume 88.6 80-100 fL Mean Corpuscular Hemoglobin 29.5 25-34 pg Mean Corpuscular Hemoglobin Concent 33.3 32-36 g/dl Platelet Count 210 130-400 K/uL Mean Platelet Volume 10.9 7.4-10.4 fL Neutrophils (%) (Auto) 56.0 % Lymphocytes (%) (Auto) 28.2 % Monocytes (%) (Auto) 11.8 % Eosinophils (%) (Auto) 3.3 % Basophils (%) (Auto) 0.3 % Neutrophils # (Auto) 4.13 1.4-6.5 K/uL Lymphocytes # (Auto) 2.08 1.2-3.4 K/uL Monocytes # (Auto) 0.87 0.11-0.59 K/uL Eosinophils # (Auto) 0.24 0-0.5 K/uL Basophils # (Auto) 0.02 0-0.2 K/uL RDW Standard Deviation 49.2 36.4-46.3 fL RDW Coefficient of Variation 15.3 11.5-14.5 % Immature Granulocyte % (Auto) 0.4 % Immature Granulocyte # (Auto) 0.03 0.00-0.02 K/uL Sodium Level 138 136-145 mmol/L Potassium Level 3.5 3.5-5.1 mmol/L Chloride Level 110 98-107 mmol/L Carbon Dioxide Level 18 21-32 mmol/L Anion Gap 10.0 3-11 mmol/L Blood Urea Nitrogen 20 7-18 mg/dl Creatinine 1.50 0.60-1.40 mg/dl Est Creatinine Clear Calc Drug Dose 51.1 ml/min Estimated GFR () 57.0 Estimated GFR (Non- 49.2 BUN/Creatinine Ratio 13.3 10-20 Random Glucose 173 70-99 mg/dl Lactic Acid Level 1.5 0.4-2.0 mmol/L Calcium Level 10.5 8.5-10.1 mg/dl Magnesium Level 1.8 1.8-2.4 mg/dl Total Bilirubin 0.5 0.2-1 mg/dl Direct Bilirubin 0.2 0-0.2 mg/dl Aspartate Amino Transf (AST/SGOT) 16 15-37 U/L Alanine Aminotransferase (ALT/SGPT) 30 12-78 U/L Alkaline Phosphatase 109 45-117 U/L Total Protein 7.4 6.4-8.2 gm/dl Albumin 3.5 3.4-5.0 gm/dl Lipase 246 73-393 U/L Bedside Glucose 138 70-99 mg/dl Diagnostic Radiology chest/abd xray : no acute pathology Impression Assessment and Plan AP Worsening abdominal pain/diarrhea symptoms History of ulcerative colitis/collagenous colitis as per records Recent C. difficile ongoing Vanco taper rpt outpx stool cdif negative Further management pending CT results Adrenal insufficiency BP on the lower side Patient admits to skipping home medications (including home maintenance steroids ) yesterday owing to illness CAD status post stenting ARF secondary to illness COPD, ongoing tobacco abuse Pulmo status at baseline DM2 insulin requiring Suboptimal control as of recent Hg A1c GMF Analgesia, judicious narcotic use Repeat CT abdomen and pelvis Continue by PO Vancomycin and antidiarrheals prescribed by GI GI consult RE worsening abdominal pain/diarrhea (Dr. Keith sent patient to the ER) Facilitate PO hydrocortisone regimen NSS, IV hydrocortisone bolus now Hold parameters for BP meds given borderline BP Baseline UA, monitor creatinine in response to IV fluids hold LILIAN inhibitor until creatinine normal Basal insulin, ISS BG goal 140-180 Carb count coverage indicated for suboptimal blood sugar control nicotine patch DVT prophylaxis Heparin subcutaneous if no bleed on CT Full code VTE Prophylaxis VTE Risk Assessment Done? Y/N: Yes Risk Level: Moderate
[2017-05-22] MEDS: HYDROmorphone INJ 0.5 MG/0.5 ML SYR IV PRN ×5 (04:37→22:33)
[2017-05-22 05:42] LABS: URINE APPEARANCE CLEAR (CLEAR); URINE BILIRUBIN NEG (NEG); URINE COLOR YELLOW; URINE NITRITE NEG (NEG); UROBILINOGEN NEG (NEG); ZZUR CULT IF INDIC CLEAN CATCH NO
[2017-05-22] MEDS: HEPARIN SOD 5000 UNIT/0.5 ML CARP SQ SCH ×3 (05:47→22:31)
[2017-05-22 06:00] LABS: MANUAL MICROSCOPIC REQUIRED? NO; REVIEW REQ? YES
--- NOTE | 2017-05-22 07:38 | Gastrointestinal Consultation ---
Gastrointestinal Consultation Date of Consultation: May 22, 2017 Attending Physician: Raad Consulting Physician: Silvino Reason for Consultation: abdominal pain, diarrhea History of Present Illness Patient is a 62 year old male with past medical history significant for microscopic colitis, chronic abdominal pain, adrenal insufficiency, hypomagnesemia, osteonecrosis, ?ulcerative colitis and others listed below who is a direct admission from Dr. Keith. At baseline, patient moves his bowels 8-10x daily with 3 episodes of nocturnal diarrhea. Stools are always liquid. Has recently had a flare of his symptoms. Diagnosed with c.diff on and was started on Vancomycin. Currently on a taper. Stool for c.diff was negative as an outpatient this week. Currently on steroids, lomotil and cholestyramine. Pt was seen and evaluated this AM. Tells me last night he had an acute worsening of his chronic lower GI symptoms and was incontinent of stool due to urgency on numerous occasions. Abdominal pain is Denies any black or bloody stools but he is colorblind. + weight loss 20 lbs this year +tobacco use 1PPD + ETOH use 4-5 beers almost nightly + ASA use + steroid use CT ABD 05/21/17: No bowel wall thickening. Mildly fluid-filled colon which may reflect a diarrheal state. Normal appendix. Colonoscopy 02/20/17: erythematous and granular mucosa Colonoscopy 12/31/16: fissure in the cecum, consistent with collagenous colitis, 2 mm polyp in ascending colon Past Medical/Surgical History Medical Problems: (1) Abdominal pain Status: Acute (2) Colitis Status: Acute (3) Failure of outpatient treatment Status: Acute (4) Hypotension Status: Acute (5) Pyelonephritis Status: Acute (6) Sepsis Status: Acute (7) Sepsis Status: Acute Past Medical History: collagenous colitis HTN, COPD, hyperlipidemia, depression, anxiety , microscopic colitis, chronic diarrhea, chronica abdominal pain, adrenal insufficiency, ?ulcerative colitis, pyelonephritis, CAD, recurrent c.diff Past Surgical History: Coronary stenting, Colonoscopy 02/19/17 Dr. Deal for chronic diarrhea: erythematous and granular mucosa in the entire colon. Sigmoid diverticulosis., EGD Dr. Keith 12/31/16: normal. Family History Cancer Diabetes mellitus Heart disease Hypertension Social History Smoking Status: Current Every Day Smoker Alcohol Use: none Drug Use: none Marital Status: Housing Status: lives with family Occupation Status: retired Allergies Coded Allergies: Azathioprine (Verified Adverse Reaction, Unknown, RENAL COMPLICATIONS, ) Current Medications Home Meds and Scripts Medications Dose Route/Sig Max Daily Dose Days Date Category Dose Instructions Proventil 0.083% 2.5MG/3ML (Albuterol Sulf) 2.5 Mg/3 Ml Nebu 2.5 Mg INH QID PRN 05/21/17 Reported Atarax (Hydroxyzine Hcl) 25 Mg Tab 50 Mg PO HS PRN 05/21/17 Reported Klor-Con M20 (Potassium Chloride) 20 Meq Tabcr 20 Meq PO DAILY 05/21/17 Reported Probiotic (Probiotic Product) 1 Cap Cap 1 Cap PO DAILY 05/21/17 Reported Fluoxetine HCl 20 Mg Cap 20 Mg PO QAM 05/21/17 Reported Percocet 5MG/325MG (Oxycodone/Acetaminophen) Tab 1 Tablet PO Q6H PRN 05/21/17 Reported PAIN Lopressor (Metoprolol Tartrate) 50 Mg Tab 50 Mg PO BID 05/21/17 Reported Vancomycin (Vancomycin Hcl) 125 Mg Cap 125 Mg PO UD 05/21/17 Reported START 05/19/2017, ONE 3X DAILY FOR 7 DAYS, ONE 2X DAILY FOR 7 DAYS, ONE DAILY FOR 7 DAYS, ONE QOD FOR 7 DAYS. Lomotil (Diphenoxylate HCl/Atropine) Tab 1 Tab PO TID 05/21/17 Reported Questran (Cholestyramine) 4 Gm Pow 4 Gm PO HS 05/21/17 Reported mix with liquid Humalog (Insulin Lispro (Human)) 100 Unit/Ml Inj SC ACHS 05/03/17 Reported SLIDING SCALE, MAX UNITS DAILY, 40 UNITS Ventolin Hfa (Albuterol) 200 Puffs/66197 Mcg Aers 3-4 Puffs INH QID PRN 04/22/17 Rx Duoneb (Ipratropium-Albuterol) 3 Ml Nebu 1 Treatment INH QID PRN 04/22/17 Rx Spiriva Handihaler (Tiotropium [place]) 30 Puff/540 Mcg Aerp 1 Cap INH DAILY 04/20/17 Reported Lantus (Insulin Glargine) 100 Unit/Ml Inj 10-20 Units SC UD 04/20/17 Reported USE DIRECTED Remeron Soltab (Mirtazapine) 30 Mg Soltab 30 Mg PO HS 04/20/17 Reported Breo Ellipta (Fluticasone Furoate-Vilanterol) 1 Inh Inh 1 Inha PO DAILY 02/19/17 Reported Lipitor (Atorvastatin Calcium) 80 Mg Tab 1 Tab PO DAILY 30 02/19/17 Reported Cortef (Hydrocortisone) 10 Mg Tab 10 Mg PO QPM 02/19/17 Reported 1 TABLET EVERY EVENING. INCREASE DIRECTED FOR ILLNESS Dexamethasone Sodium Phos (Dexamethasone Sod Phos) 4 Mg/Ml Inj 1 Ml IM DIRECTED PRN 02/19/17 Reported Xanax (Alprazolam) 0.5 Mg Tab 0.5 Mg PO HS PRN 04/08/16 Reported Zestril (Lisinopril) 5 Mg Tab 5 Mg PO QAM 04/08/16 Reported Imdur Ext Rel (Isosorbide Mononitrate) 60 Mg Ertab 60 Mg PO QAM 04/08/16 Reported Aspirin Chewable (Aspirin) 81 Mg Chew 81 Mg PO QAM 04/08/16 Reported Cortef (Hydrocortisone) 10 Mg Tab 20 Mg PO QAM 04/08/16 Reported 2 TAB LETS EVERY MORNINIG. INCREASE DIRECTED WITH ILLNESS Zantac (Ranitidine HCl) 150 Mg Tab 150 Mg PO BID 04/08/16 Reported Review of Systems Constitutional: No fever, No chills Respiratory: No cough Cardiac: No chest pain Abdomen: + pain, + diarrhea, No nausea, No vomiting, No constipation, No GI bleeding Physical Exam Date Time Temp Pulse Resp B/P (MAP) Pulse Ox O2 Delivery O2 Flow Rate FiO2 05/22/17 07:11 36.4 61 18 100/64 (76) 98 Room Air 05/22/17 00:06 36.4 67 16 117/76 (90) 97 Room Air 05/22/17 00:00 36.4 67 16 117/76 97 Room Air 05/21/17 22:40 72 16 105/72 99 05/21/17 20:44 77 05/21/17 20:36 74 16 93/51 96 Room Air 05/21/17 19:57 80 128/76 05/21/17 19:17 74 16 114/71 98 Room Air 05/21/17 18:30 36.3 83 16 113/83 99 Room Air General Appearance: no apparent distress Eyes: PERRL ENT: hearing grossly normal Neck: supple Respiratory/Chest: lungs clear Cardiovascular: regular rate, rhythm Abdomen: normal bowel sounds, soft, no organomegaly, + tenderness Neurologic/Psych: alert, normal mood/affect, oriented x 3 Skin: normal color Laboratory Results Last 24 Hours Test 05/21/17 18:10 05/22/17 00:01 05/22/17 04:35 05/22/17 07:29 White Blood Count 7.37 K/uL Red Blood Count 4.81 M/uL Hemoglobin 14.2 g/dL Hematocrit 42.6 % Mean Corpuscular Volume 88.6 fL Mean Corpuscular Hemoglobin 29.5 pg Mean Corpuscular Hemoglobin Concent 33.3 g/dl Platelet Count 210 K/uL Mean Platelet Volume 10.9 fL Neutrophils (%) (Auto) 56.0 % Lymphocytes (%) (Auto) 28.2 % Monocytes (%) (Auto) 11.8 % Eosinophils (%) (Auto) 3.3 % Basophils (%) (Auto) 0.3 % Neutrophils # (Auto) 4.13 K/uL Lymphocytes # (Auto) 2.08 K/uL Monocytes # (Auto) 0.87 K/uL Eosinophils # (Auto) 0.24 K/uL Basophils # (Auto) 0.02 K/uL RDW Standard Deviation 49.2 fL RDW Coefficient of Variation 15.3 % Immature Granulocyte % (Auto) 0.4 % Immature Granulocyte # (Auto) 0.03 K/uL Sodium Level 138 mmol/L Potassium Level 3.5 mmol/L Chloride Level 110 mmol/L Carbon Dioxide Level 18 mmol/L Anion Gap 10.0 mmol/L Blood Urea Nitrogen 20 mg/dl Creatinine 1.50 mg/dl Est Creatinine Clear Calc Drug Dose 51.1 ml/min Estimated GFR () 57.0 Estimated GFR (Non- 49.2 BUN/Creatinine Ratio 13.3 Random Glucose 173 mg/dl Lactic Acid Level 1.5 mmol/L Calcium Level 10.5 mg/dl Magnesium Level 1.8 mg/dl Total Bilirubin 0.5 mg/dl Direct Bilirubin 0.2 mg/dl Aspartate Amino Transf (AST/SGOT) 16 U/L Alanine Aminotransferase (ALT/SGPT) 30 U/L Alkaline Phosphatase 109 U/L Total Protein 7.4 gm/dl Albumin 3.5 gm/dl Lipase 246 U/L Bedside Glucose 138 mg/dl Urine Color YELLOW Urine Appearance CLEAR Urine pH 5.0 Urine Specific [place] 1.020 Urine Protein TRACE Urine Glucose (UA) NEG Urine Ketones NEG Urine Occult Blood NEG Urine Nitrite NEG Urine Bilirubin NEG Urine Urobilinogen NEG Urine Leukocyte Esterase SMALL Urine WBC (Auto) 10-30 /hpf Urine RBC (Auto) 0-4 /hpf Urine Hyaline Casts (Auto) >30 /lpf Urine Epithelial Cells (Auto) 10-20 /lpf Urine Bacteria (Auto) 1+ Urine Pathogenic Casts 10-20 GRANULAR CASTS /lpf Impression Patient is a 62 year old male with acute worsening of chronic diarrhea with hx of collagenous colitis and ulcerative colitis on cholestyramine four times daily , lomotil three times daily and 30 mg of steroids with positive c.diff on . Moving his bowels 20 times daily, no change in his chronic abdominal pain is tolerating liquids and wants to increase diet to regular food. Collagenous colitis vs diabetic diarrhea Plan IVF for hydration Clear liquid diet --> advance to dairy free and gluten free as tolerated HIV testing --> discussed with pt and he is agreeable to this Xifaxan 550 TID Trial Entocort 9 mg once daily Continue vancomycin taper Continue outpatient dosing of hydrocortisone 20mg AM 10mg HS, Lomotil TID, cholestyramine 4 mg and Creon Antiemetics PRN Analgesia PRN Please call with any questions or concerns. Can consider IV Octreotide 50 mcg TID, May increase to 100 mcg TID if diarrhea persists. Can consider clonidine if does not respond to octreotide clonidine 0.05 mg BID ATTESTATION: I have performed a history and physical examination of this patient and reviewed the electronic record. Specifically, on physical examination there is diffuse abdominal tenderness. I have discussed the case with NICOLAS Ardon. The above note reflects my findings, conclusions, and recommendations. Andrea Pacheco MD
[2017-05-22 07:45] LABS: COMPLETE YES; HEMATOCRIT 38.2 % (42-52); IG% 0.3 %; LYMPH % 16.3 %; LYMPH ABS # 1.06 K/uL (1.2-3.4); MEAN CELL VOLUME 88.8 fL (80-100); MEAN CORPUSCULAR HEMOGLOBIN 29.5 pg (25-34); MEAN CORPUSCULAR HGB CONC 33.2 g/dl (32-36); MEAN PLATELET VOLUME 10.9 fL (7.4-10.4); MONO % 2.2 %; NEUT % 81.2 %; PLATELET COUNT 181 K/uL (130-400); WHITE BLOOD COUNT 6.49 K/uL (4.8-10.8)
[2017-05-22] MEDS: LACTOBACILLUS ACIDOPHILUS (FLORANEX) TAB PO SCH (07:55)
[2017-05-22] MEDS: ATORVASTATIN 40 MG TAB PO SCH (07:55)
[2017-05-22] MEDS: ASPIRIN 81 MG ECTAB PO SCH (07:56)
[2017-05-22] MEDS: NICOTINE 7 MG/24 HR TDSY TD SCH (07:56)
[2017-05-22] MEDS: METOPROLOL TARTRATE 25 MG TAB PO SCH ×2 (07:57→20:00)
[2017-05-22] MEDS: RANITIDINE HCL 150 MG TAB PO SCH ×2 (07:58→20:11)
[2017-05-22] MEDS: HYDROCORTISONE 10 MG TAB PO SCH ×2 (07:59→18:01)
[2017-05-22] MEDS ORDERED: TIOTROPIUM BROMIDE 5 PUFF/90 MCG INH INH SCH (08:00)
[2017-05-22] MEDS: FLUOXETINE HCL 20 MG CAP PO SCH (08:00)
[2017-05-22] MEDS: INSULIN ASPART 100 UNITS/ML 3 ML PEN SC SCH ×4 (08:05→22:31)
[2017-05-22] MEDS: INSULIN GLARGINE SOLOSTAR 100 UNITS/ML 3 ML PEN SC SCH ×2 (08:08→20:06)
[2017-05-22 08:29] LABS: BUN/CREATININE RATIO 14.1 (10-20); CALCIUM 9.6 mg/dl (8.5-10.1); CREATININE 1.4 mg/dl (0.60-1.40); POTASSIUM 5.7 mmol/L (3.5-5.1)
[2017-05-22] MEDS: VANCOMYCIN HCL 125 MG/2.5ML SOLN PO SCH ×3 (09:28→20:18)
[2017-05-22] MEDS: DIPHENOXYLATE/ATROPINE 2.5/0.025MG TAB PO SCH ×3 (09:28→20:07)
[2017-05-22] MEDS ORDERED: CALCIUM GLUCONATE 10% 2,000 MG in SODIUM CHLORIDE 0.9% 50ML 50 ML IV STA (11:41)
[2017-05-22] MEDS: CALCIUM GLUCONATE 10% 10 ML VIAL IV SCH ×2 (12:13→12:44)
[2017-05-22] MEDS: RASPBERRY SYRUP 5 ML UDP PO SCH ×3 (12:43→20:08)
[2017-05-22] MEDS: BUDESONIDE EC 3 MG CAP PO SCH (13:08)
[2017-05-22] MEDS ORDERED: RIFAXIMIN TAB 550 MG TAB PO SCH (14:00)
[2017-05-22] MEDS ORDERED: HYDROmorphone INJ 0.5 MG/0.5 ML SYR IV SCH (15:30)
[2017-05-22 16:21] LABS: BUN/CREATININE RATIO 14.1 (10-20); CALCIUM 9.9 mg/dl (8.5-10.1); CREATININE 1.6 mg/dl (0.60-1.40); POTASSIUM 4.9 mmol/L (3.5-5.1)
--- NOTE | 2017-05-22 16:36 | Progress Note ---
Medicine Progress Note Date & Time of Visit: May 22, 2017 at 15:15. Subjective 62 yoM with chronic diarrhea and recent c-diff in setting of UC and GI issues for 15 years presents with worsened non-bloody diarrhea after discharge two weeks ago. Tolerating PO Reoprts 8-13 BMs today however nurses have not been aware of any BMs. Hat ordered for monitoring of volume of output Pt states that his abdominal pain is unbearable and he needs the frequency of his dilaudid moved to q3h, he denies oral pain meds He then asked for something for breakthrough pain just two hours after last percocet and dilaudid. I spoke with him about concerns of iatrogenic addiction and he verbalized understanding, states that he "didn't touch" any narcotics at home when he was discharged the last time. Will monitor need carefully and cont to push other alternatives to IV narcotics. Denies vomiting Drinking coke mixed with OJ all day today. States that he is depressed but declines the prozac Objective Last 8 Hrs Date Time Temp Pulse Resp B/P (MAP) Pulse Ox O2 Delivery O2 Flow Rate FiO2 05/22/17 14:38 36.5 58 18 112/77 (89) 98 05/22/17 12:49 72 122/80 (94) 05/22/17 12:47 76 119/82 (94) 05/22/17 12:46 72 122/83 (96) 05/22/17 12:45 78 128/85 (99) 05/22/17 12:44 72 129/79 (96) 05/22/17 11:14 98 Room Air Physical Exam: GEN: WNWD, in no acute distress, alert and appropriate HEENT: NC/AT, pupils are equal and round bilaterally, normal sclerae/ conjunctivae CARDIO: reg rate, S1/2 heard without m/g/r LUNGS: CTA bilaterally, no crackles, rales or wheezes, good diaphragmatic excursion ABD: soft, generalized TTP worse in RUQ and LLQ, non-distended, +BS EXTREMITY: RP and DP palpable 2+ bilat, no LE swelling or edema, extremities are warm and well-perfused NEURO: no gross focal deficits MUSC: moves all extremities equally. SKIN: warm and dry Laboratory Results: 05/22/17 07:29 Red Blood Count 4.30, Mean Corpuscular Volume 88.8, Mean Corpuscular Hemoglobin 29.5, Mean Corpuscular Hemoglobin Concent 33.2, Mean Platelet Volume 10.9, Neutrophils (%) (Auto) 81.2, Lymphocytes (%) (Auto) 16.3, Monocytes (%) (Auto) 2.2, Eosinophils (%) (Auto) 0.0, Basophils (%) (Auto) 0.0, Neutrophils # (Auto) 5.27, Lymphocytes # (Auto) 1.06, Monocytes # (Auto) 0.14, Eosinophils # (Auto) 0.00, Basophils # (Auto) 0.00 05/22/17 15:54 Test 05/21/17 18:10 05/21/17 19:10 05/22/17 04:35 05/22/17 07:29 Magnesium Level 1.8 mg/dl (1.8-2.4) Total Bilirubin 0.5 mg/dl (0.2-1) Direct Bilirubin 0.2 mg/dl (0-0.2) Aspartate Amino Transf (AST/SGOT) 16 U/L (15-37) Alanine Aminotransferase (ALT/SGPT) 30 U/L (12-78) Alkaline Phosphatase 109 U/L (45-117) Total Protein 7.4 gm/dl (6.4-8.2) Albumin 3.5 gm/dl (3.4-5.0) Lipase 246 U/L (73-393) Lactic Acid Level 1.5 mmol/L (0.4-2.0) Urine Color YELLOW Urine Appearance CLEAR (CLEAR) Urine pH 5.0 (4.5-7.5) Urine Specific [place] 1.020 (1.000-1.030) Urine Protein TRACE (NEG) Urine Glucose (UA) NEG (NEG) Urine Ketones NEG (NEG) Urine Occult Blood NEG (NEG) Urine Nitrite NEG (NEG) Urine Bilirubin NEG (NEG) Urine Urobilinogen NEG (NEG) Urine Leukocyte Esterase SMALL (NEG) Urine WBC (Auto) 10-30 /hpf (0-5) Urine RBC (Auto) 0-4 /hpf (0-4) Urine Hyaline Casts (Auto) >30 /lpf (0-5) Urine Epithelial Cells (Auto) 10-20 /lpf (0-5) Urine Bacteria (Auto) 1+ (NEG) Urine Pathogenic Casts 10-20 GRANULAR CASTS /lpf (0) White Blood Count 6.49 K/uL (4.8-10.8) Red Blood Count 4.30 M/uL (4.7-6.1) Hemoglobin 12.7 g/dL (14.0-18.0) Hematocrit 38.2 % (42-52) Mean Corpuscular Volume 88.8 fL (80-100) Mean Corpuscular Hemoglobin 29.5 pg (25-34) Mean Corpuscular Hemoglobin Concent 33.2 g/dl (32-36) Platelet Count 181 K/uL (130-400) Mean Platelet Volume 10.9 fL (7.4-10.4) Neutrophils (%) (Auto) 81.2 % Lymphocytes (%) (Auto) 16.3 % Monocytes (%) (Auto) 2.2 % Eosinophils (%) (Auto) 0.0 % Basophils (%) (Auto) 0.0 % Neutrophils # (Auto) 5.27 K/uL (1.4-6.5) Lymphocytes # (Auto) 1.06 K/uL (1.2-3.4) Monocytes # (Auto) 0.14 K/uL (0.11-0.59) Eosinophils # (Auto) 0.00 K/uL (0-0.5) Basophils # (Auto) 0.00 K/uL (0-0.2) RDW Standard Deviation 49.0 fL (36.4-46.3) RDW Coefficient of Variation 15.2 % (11.5-14.5) Immature Granulocyte % (Auto) 0.3 % Immature Granulocyte # (Auto) 0.02 K/uL (0.00-0.02) Test 05/22/17 11:19 05/22/17 15:54 Bedside Glucose 193 mg/dl (70-99) Anion Gap 5.0 mmol/L (3-11) Est Creatinine Clear Calc Drug Dose 48.4 ml/min Estimated GFR () 52.7 Estimated GFR (Non- 45.5 BUN/Creatinine Ratio 14.1 (10-20) Calcium Level 9.9 mg/dl (8.5-10.1) Date/Time Source Procedure Growth Status 05/22/17 15:46 Stool C.difficile Toxin B Gene (PCR) Pending Received 05/22/17 04:35 Urine , Clean Catch Urine Culture Pending Received Last 24 Hours Test 05/21/17 18:10 05/21/17 19:10 05/22/17 00:01 05/22/17 04:35 White Blood Count 7.37 K/uL Red Blood Count 4.81 M/uL Hemoglobin 14.2 g/dL Hematocrit 42.6 % Mean Corpuscular Volume 88.6 fL Mean Corpuscular Hemoglobin 29.5 pg Mean Corpuscular Hemoglobin Concent 33.3 g/dl Platelet Count 210 K/uL Mean Platelet Volume 10.9 fL Neutrophils (%) (Auto) 56.0 % Lymphocytes (%) (Auto) 28.2 % Monocytes (%) (Auto) 11.8 % Eosinophils (%) (Auto) 3.3 % Basophils (%) (Auto) 0.3 % Neutrophils # (Auto) 4.13 K/uL Lymphocytes # (Auto) 2.08 K/uL Monocytes # (Auto) 0.87 K/uL Eosinophils # (Auto) 0.24 K/uL Basophils # (Auto) 0.02 K/uL RDW Standard Deviation 49.2 fL RDW Coefficient of Variation 15.3 % Immature Granulocyte % (Auto) 0.4 % Immature Granulocyte # (Auto) 0.03 K/uL Sodium Level 138 mmol/L Potassium Level 3.5 mmol/L Chloride Level 110 mmol/L Carbon Dioxide Level 18 mmol/L Anion Gap 10.0 mmol/L Blood Urea Nitrogen 20 mg/dl Creatinine 1.50 mg/dl Est Creatinine Clear Calc Drug Dose 51.1 ml/min Estimated GFR () 57.0 Estimated GFR (Non- 49.2 BUN/Creatinine Ratio 13.3 Random Glucose 173 mg/dl Calcium Level 10.5 mg/dl Magnesium Level 1.8 mg/dl Total Bilirubin 0.5 mg/dl Direct Bilirubin 0.2 mg/dl Aspartate Amino Transf (AST/SGOT) 16 U/L Alanine Aminotransferase (ALT/SGPT) 30 U/L Alkaline Phosphatase 109 U/L Total Protein 7.4 gm/dl Albumin 3.5 gm/dl Lipase 246 U/L Lactic Acid Level 1.5 mmol/L Bedside Glucose 138 mg/dl Urine Color YELLOW Urine Appearance CLEAR Urine pH 5.0 Urine Specific [place] 1.020 Urine Protein TRACE Urine Glucose (UA) NEG Urine Ketones NEG Urine Occult Blood NEG Urine Nitrite NEG Urine Bilirubin NEG Urine Urobilinogen NEG Urine Leukocyte Esterase SMALL Urine WBC (Auto) 10-30 /hpf Urine RBC (Auto) 0-4 /hpf Urine Hyaline Casts (Auto) >30 /lpf Urine Epithelial Cells (Auto) 10-20 /lpf Urine Bacteria (Auto) 1+ Urine Pathogenic Casts 10-20 GRANULAR CASTS /lpf Test 05/22/17 07:15 05/22/17 07:29 05/22/17 11:19 Bedside Glucose 178 mg/dl 193 mg/dl White Blood Count 6.49 K/uL Red Blood Count 4.30 M/uL Hemoglobin 12.7 g/dL Hematocrit 38.2 % Mean Corpuscular Volume 88.8 fL Mean Corpuscular Hemoglobin 29.5 pg Mean Corpuscular Hemoglobin Concent 33.2 g/dl Platelet Count 181 K/uL Mean Platelet Volume 10.9 fL Neutrophils (%) (Auto) 81.2 % Lymphocytes (%) (Auto) 16.3 % Monocytes (%) (Auto) 2.2 % Eosinophils (%) (Auto) 0.0 % Basophils (%) (Auto) 0.0 % Neutrophils # (Auto) 5.27 K/uL Lymphocytes # (Auto) 1.06 K/uL Monocytes # (Auto) 0.14 K/uL Eosinophils # (Auto) 0.00 K/uL Basophils # (Auto) 0.00 K/uL RDW Standard Deviation 49.0 fL RDW Coefficient of Variation 15.2 % Immature Granulocyte % (Auto) 0.3 % Immature Granulocyte # (Auto) 0.02 K/uL Sodium Level 139 mmol/L Potassium Level 5.7 mmol/L Chloride Level 116 mmol/L Carbon Dioxide Level 19 mmol/L Anion Gap 4.0 mmol/L Blood Urea Nitrogen 20 mg/dl Creatinine 1.40 mg/dl Est Creatinine Clear Calc Drug Dose 55.3 ml/min Estimated GFR () 62.0 Estimated GFR (Non- 53.5 BUN/Creatinine Ratio 14.1 Random Glucose 167 mg/dl Calcium Level 9.6 mg/dl Date/Time Source Procedure Growth Status 05/22/17 04:35 Urine , Clean Catch Urine Culture Pending Received Assessment & Plan 62 yoM with chronic diarrhea and recent c-diff in setting of UC and GI issues for 15 years presents with worsened non-bloody diarrhea after discharge two weeks ago. 1. Abdominal pain/Diarrhea-recent c-diff infection and has remained on vanc PO with extension of taper per GI outpatient. Repeat c-diff as outpatient was negative. Will order repeat now. Pt on contact precautions with persistent diarrhea. CT revealed no acute issues and consistent with diarrheal state. Cholestyramine per GI recs, Apprec GI management. 2. Adrenal insufficiency-chronic, cont Cortef 3. Hypotension-improved since IVF overnight. Cont Metop 12.5mg PO BID which is decreased from 50mg PO BID as outpatient. Also holding Imdur and Lisinopril until BP looks more stable. Pt is requesting frequent dilaudid for pain which may cause a problem, but will monitor closely. 4. UC-takes hydrocortisone regularly to control flares and in setting of chronic adrenal insufficiency. Recent colonoscopy was 02/20/17 while he was hospitalized for a UC flare. Cont per GI. 5. Chronic adrenal insufficiency-stable, cont home dose of hydrocortisone. 6. CAD-stable, no active ACS or concerning symptoms. Cont medical management with ASA, statin, Lopressor. TTE normal during last hospitalization and Cardiology evaluated him. Hold Imdur as above. 7. DMII: Lantus/ISS per pharmacy recs. Sugar is controlled. 8. COPD-not oxygen-dependent and is stable without wheezing on exam. Cont Spiriva and Nicoderm patch to control cravings to smoke. 11. Tobacco abuse-Nicotine replacement given. 12. Iron-deficiency anemia-holding outpatient iron supplementation now. 13. CRISTIAN 2/2 acute illness. Normal creat at baseline. 14. Acute hyperkalemia 2/2 potassium supplementation and OJ. Told not to drink any more OJ today and will hold K supplementation. Of note, patient is reportedly having multiple BMs, so expect this to resolve rather quickly. 15. Adjustment reaction d/o-states that he is depressed but declines the prozac that he is on at home. Cont to monitor closely. DVT proph: Heparin Full code DO Davide [facility] Consultants: GI Current Inpatient Medications: Current Inpatient Medications Medications (Trade) Dose Ordered Sig/Tisha Route Start Time Stop Time Status Last Admin Dose Admin Miscellaneous (Iv Fluids Completed) 1 ea PRN PRN N/A 05/21/17 22:30 05/21/18 22:29 Acetaminophen (Tylenol Tab) 650 mg Q4H PRN PO 05/21/17 23:00 06/20/17 22:59 Insulin Aspart (novoLOG ASPART) SLIDING SCALE If C... ACHS SC 05/22/17 06:30 06/21/17 06:59 05/22/17 13:02 4 UNITS Glucose (Glucose 40% Gel) 15-30 GRAMS 15 GRAMS... UD PRN PO 05/21/17 23:00 06/20/17 22:59 Glucose (Glucose Chew Tab) 4-8 Tablets 4 Tabl... UD PRN PO 05/21/17 23:00 06/20/17 22:59 Dextrose (Dextrose 50% 50ML Syringe) 25-50ML OF 50% DW IV FOR... UD PRN IV 05/21/17 23:00 06/20/17 22:59 Glucagon (Glucagon Inj) 1 mg UD PRN SQ 05/21/17 23:00 06/20/17 22:59 Alprazolam (Xanax Tab) 0.5 mg HS PRN PO 05/21/17 23:00 06/20/17 22:59 Aspirin (Ecotrin Tab) 81 mg QAM PO 05/22/17 08:00 06/21/17 07:59 05/22/17 07:56 81 MG Atorvastatin Calcium (Lipitor Tab) 80 mg DAILY PO 05/22/17 08:00 06/21/17 07:59 05/22/17 07:55 80 MG Fluoxetine HCl (Prozac Cap) 20 mg QAM PO 05/22/17 08:00 06/21/17 08:59 Hydrocortisone (Cortef Tab) 20 mg QAM PO 05/22/17 08:00 06/21/17 08:59 05/22/17 07:59 20 MG Oxycodone/ Acetaminophen (Percocet 5-325mg Tab) 1 tab Q4H PRN PO 05/21/17 23:00 06/04/17 22:59 05/22/17 13:19 1 TAB Ranitidine HCl (zANTac TAB) 150 mg BID PO 05/22/17 08:00 06/21/17 08:59 05/22/17 07:58 150 MG Vancomycin HCl (Vancomycin Oral Soln) 125 mg Taper TID PO 05/22/17 09:00 06/17/17 07:59 05/22/17 13:04 125 MG Cholestyramine Resin (Questran Powder Light) 4 gm DAILY@2300 PO 05/23/17 23:00 06/22/17 22:59 Miscellaneous Information (Order Awaiting Action) 1 ea QS N/A 05/22/17 08:00 06/21/17 07:59 Lactobacillus Acidophilus (Floranex Tab) 4 tab DAILY PO 05/22/17 08:00 06/21/17 07:59 05/22/17 07:55 4 TAB Mirtazapine (Remeron Tab) 30 mg HS PRN PO 05/21/17 23:00 06/20/17 22:59 Ondansetron HCl (Zofran Inj) 4 mg Q6H PRN IV 05/21/17 23:00 06/20/17 22:59 Promethazine HCl 12.5 mg/Sodium Chloride 50.5 ml @ 204 mls/hr Q6H PRN IV 05/21/17 23:00 06/20/17 22:59 Hydromorphone HCl (Dilaudid Inj) 0.5 mg Q4H PRN IV 05/21/17 23:00 06/04/17 22:59 05/22/17 13:20 0.5 MG Nicotine (Nicoderm Cq 7 Mg Patch) 1 patch QAM TD 05/22/17 08:00 06/21/17 08:59 05/22/17 07:56 1 PATCH Miscellaneous (Remove Nicoderm Patch) 1 ea HS N/A 05/22/17 21:00 06/21/17 20:59 Insulin Glargine (Lantus Solostar Pen) 5 units BID SC 05/22/17 08:00 06/21/17 08:59 05/22/17 08:08 5 UNITS Metoprolol Tartrate (Lopressor Tab) 12.5 mg BID PO 05/22/17 08:00 06/21/17 08:59 05/22/17 07:57 12.5 MG Heparin Sodium (Porcine) (Heparin Sq 5000 Unit/0.5ml) 5,000 unit Q8 SQ 05/22/17 06:00 06/21/17 05:59 05/22/17 13:03 5,000 UNIT Lorazepam 0.5 mg/ Syringe 1 ml @ 1 mls/min Q4H PRN IV 05/22/17 00:30 06/21/17 00:29 Hydrocortisone (Cortef Tab) 10 mg DAILY@1800 PO 05/22/17 18:00 06/21/17 17:59 Diphenoxylate HCl/ Atropine (Lomotil Tab) 1 tab TID PO 05/22/17 08:00 06/21/17 07:59 05/22/17 13:08 1 TAB Raspberry (Raspberry Syrup 5ml Cup) 5 ml Taper TID PO 05/22/17 08:00 06/17/17 07:59 05/22/17 13:04 5 ML Tiotropium [place] (Spiriva Handihaler Inhaler) 1 puff DAILY INH 05/23/17 08:00 06/22/17 07:59 Budesonide (Entocort EC Cap) 9 mg QAM PO 05/23/17 08:00 06/22/17 07:59 05/22/17 13:08 9 MG Rifaximin (Xifaxan Tab) 550 mg TID PO 05/22/17 14:00 06/21/17 13:59 05/22/17 13:05 550 MG
[2017-05-22] MEDS ORDERED: OCTREOTIDE ACETATE 100 MCG/ML VIAL IV SCH (16:45)
[2017-05-22] MEDS: OCTREOTIDE ACETATE IV SCH (17:48)
[2017-05-22] MEDS ORDERED: OCTREOTIDE ACETATE INJ 100 MCG in SYRINGE 9 ML IV SCH (18:00)
[2017-05-22] MEDS ORDERED: HYDROCORTISONE 10 MG TAB PO SCH (21:00)
[2017-05-23 01:38] VITALS: BP 153/77; PULSE 50
[2017-05-23] MEDS: HYDROmorphone INJ 0.5 MG/0.5 ML SYR IV PRN ×6 (01:47→22:03)
[2017-05-23] MEDS: OCTREOTIDE ACETATE IV SCH ×3 (01:48→18:00)
[2017-05-23] MEDS: HEPARIN SOD 5000 UNIT/0.5 ML CARP SQ SCH ×3 (05:12→21:54)
[2017-05-23] MEDS ORDERED: HEPARIN SOD 5000 UNIT/0.5 ML CARP SQ SCH (06:00)
[2017-05-23 07:18] LABS: HEMATOCRIT 37.2 % (42-52); MEAN CELL VOLUME 87.7 fL (80-100); MEAN CORPUSCULAR HGB CONC 33.1 g/dl (32-36); MEAN PLATELET VOLUME 10.4 fL (7.4-10.4); PLATELET COUNT 176 K/uL (130-400); RED BLOOD COUNT 4.24 M/uL (4.7-6.1); WHITE BLOOD COUNT 8.12 K/uL (4.8-10.8)
[2017-05-23 07:28] VITALS: BP_SYST 151; BP_SYST 154; BP_DIAS 87; BP_DIAS 90; PULSE 45; PULSE 47; TEMP 36.5; O2SAT 100
[2017-05-23] MEDS ORDERED: PHARMACY GLYCEMIC MGMT CONSULT PRN (07:51)
[2017-05-23 07:54] LABS: BLOOD UREA NITROGEN 19 mg/dl (7-18); BUN/CREATININE RATIO 12.5 (10-20); CALCIUM 9.6 mg/dl (8.5-10.1); CARBON DIOXIDE 23 mmol/L (21-32); CHLORIDE 111 mmol/L (98-107); GLUCOSE 153 mg/dl (70-99); PHOSPHORUS 2.4 mg/dl (2.5-4.9); SODIUM 138 mmol/L (136-145)
[2017-05-23] MEDS: RASPBERRY SYRUP 5 ML UDP PO SCH ×3 (08:38→20:37)
[2017-05-23] MEDS: VANCOMYCIN HCL 125 MG/2.5ML SOLN PO SCH ×3 (08:38→20:40)
[2017-05-23] MEDS: ASPIRIN 81 MG ECTAB PO SCH (08:39)
[2017-05-23] MEDS: BUDESONIDE EC 3 MG CAP PO SCH (08:39)
[2017-05-23] MEDS: DIPHENOXYLATE/ATROPINE 2.5/0.025MG TAB PO SCH ×3 (08:39→20:38)
[2017-05-23] MEDS: ATORVASTATIN 40 MG TAB PO SCH (08:39)
[2017-05-23] MEDS: RANITIDINE HCL 150 MG TAB PO SCH ×2 (08:40→20:37)
[2017-05-23] MEDS: HYDROCORTISONE 10 MG TAB PO SCH ×2 (08:41→18:01)
[2017-05-23] MEDS: LACTOBACILLUS ACIDOPHILUS (FLORANEX) TAB PO SCH (08:41)
[2017-05-23] MEDS: NICOTINE 7 MG/24 HR TDSY TD SCH (08:42)
[2017-05-23] MEDS: FLUOXETINE HCL 20 MG CAP PO SCH (08:42)
[2017-05-23] MEDS: TIOTROPIUM BROMIDE 5 PUFF/90 MCG INH INH SCH (08:43)
[2017-05-23 08:54] LABS: POTASSIUM 4.3 mmol/L (3.5-5.1)
[2017-05-23 08:55] LABS: MAGNESIUM 1.7 mg/dl (1.8-2.4)
[2017-05-23] MEDS: INSULIN ASPART 100 UNITS/ML 3 ML PEN SC SCH ×4 (08:57→21:54)
[2017-05-23] MEDS: METOPROLOL TARTRATE 25 MG TAB PO SCH (08:58)
[2017-05-23] MEDS: INSULIN GLARGINE SOLOSTAR 100 UNITS/ML 3 ML PEN SC SCH ×2 (09:01→21:52)
--- NOTE | 2017-05-23 09:08 | Pharmacy Progress Note ---
Glycemic Control Intl Consult Date of Service May 23, 2017. Scope Glycemic Pharmacist consulted by Dr Shankar on 05/23/17 for glycemic control and to write orders per [facility] inpatient glycemic control protocol Objective Weight (Kilograms): 71.500 Accuchecks BSG (last 24hrs): Test 05/22/17 11:19 05/22/17 15:54 05/22/17 16:28 05/22/17 20:10 Bedside Glucose 193 mg/dl (70-99) 156 mg/dl (70-99) 191 mg/dl (70-99) Random Glucose 133 mg/dl (70-99) Test 05/22/17 22:25 05/23/17 06:38 Bedside Glucose 249 mg/dl (70-99) Random Glucose 153 mg/dl (70-99) Laboratory Data (last 24hrs) Test 05/22/17 15:54 05/23/17 06:38 05/23/17 08:21 Anion Gap 5.0 mmol/L 4.0 mmol/L BUN/Creatinine Ratio 14.1 12.5 Blood Urea Nitrogen 23 mg/dl 19 mg/dl Creatinine 1.60 mg/dl 1.50 mg/dl Potassium Level 4.9 mmol/L mmol/L Sodium Level 141 mmol/L 138 mmol/L White Blood Count 8.12 K/uL Recent Pertinent Medications Outpatient Anti-diabetic Regimen: * Humalog sliding scale, up to 40 units/day * Lantus 10-20 units daily * A1c = 7 % 02/20/17, updated A1c ordered The patient is currently receiving: * Basal insulin: Lantus 5 units every 12 hours * Correctional Insulin: Novolog Correction per scale ACHS Goal Range: Low 140 mg/dL - High 180 mg/dL Correction Factor: 25 mg/dL/unit * Prandial insulin: Per carb ratio of 1 unit per 15 grams CHO consumed Risk Factors for Insulin Resistance: * Steroids: Hydrocortisone IV 100mg yesterday x1 and 25mg IV x1; now on 20mg PO QAM and 10mg PO QPM (home doses) * Infection: Vancomycin PO (CDiff) * IVF: Sandostatin IV Q8H * Diet: Type 2 DM Assessment & Plan ASSESSMENT: * 62 yo male type 2 diabetic admitted with chronic diarrhea and recent Cdiff, discharged 2 weeks ago. Patient received IV steroids yesterday, now on home dose PO steroids for adrenal insufficiency. * Patient's blood sugar pretty well controlled despite IV steroids yesterday, will tighten carb ratio slightly at this time and continue to titrate parameters. * Continue Lantus dose at this time, fasting BSG this AM acceptable. * ADA & AACE recommend a goal blood sugar range 140-180 mg/dl for the majority of critically ill & non-critically ill patients. However, more stringent targets may be selected in individual cases. Will utilize more stringent goal of 110-140mg/dl based on patient age & comorbidities & A1c. PLAN FOR INPATIENT GLYCEMIC CONTROL: * Continue Lantus 5 units SQ BID * Continue correction factor of 25 mg/dl/unit * Change carb ratio to 1 unit per 10 grams CHO consumed * Change goal range to Low 110 mg/dL - High 140 mg/dL * Please note that the plan above was derived based on current level of insulin resistance and hospital stress. These recommendations are appropriate for inpatient admission only. Plan of care upon discharge will need to be reassessed to avoid potential outpatient hypo/hyperglycemia. Thank you.
[2017-05-23 15:19] VITALS: BP 166/73; PULSE 56; TEMP 36.6; O2SAT 100
[2017-05-23 16:00] VITALS: O2SAT 100
[2017-05-23] MEDS: MAGNESIUM SULFATE 1GM / D5W 1 GM in PREMIXED IN D5W 100 ML IV SCH ×2 (16:02→17:20)
[2017-05-23] MEDS ORDERED: LISINOPRIL 5 MG TAB PO ONE (17:17)
--- NOTE | 2017-05-23 17:25 | Progress Note ---
Medicine Progress Note Date & Time of Visit: May 23, 2017 at 17:08. Subjective 62 yoM with chronic diarrhea and recent c-diff in setting of UC and GI issues for 15 years presents with worsened non-bloody diarrhea after discharge two weeks ago. --severe abdominal pain -refusing PO pain meds, will only accept IV "or I will just suffer" -upset that he rang for a nurse one hour ago and no one came by with his pain meds -upset that he feels cooped up in his room because someone told him he was on contact precautions and, therefore, had to stay put less he infect other people on the floor. Objective Last 8 Hrs Date Time Temp Pulse Resp B/P (MAP) Pulse Ox O2 Delivery O2 Flow Rate FiO2 05/23/17 16:00 100 Room Air 05/23/17 15:19 36.6 56 16 166/73 (104) 100 Room Air 05/23/17 10:32 Room Air Physical Exam: GEN: WNWD, significant emotional distress, alert and appropriate HEENT: NC/AT, pupils are equal and round bilaterally, normal sclerae/ conjunctivae CARDIO: reg rate, S1/2 heard without m/g/r LUNGS: CTA bilaterally, no crackles, rales or wheezes, good diaphragmatic excursion ABD: soft, generalized TTP worse in RUQ and LLQ, non-distended, +BS EXTREMITY: RP and DP palpable 2+ bilat, no LE swelling or edema, extremities are warm and well-perfused NEURO: no gross focal deficits MUSC: moves all extremities equally. SKIN: warm and dry Laboratory Results: 05/23/17 06:38 05/23/17 06:38 05/23/17 08:21 Test 05/21/17 18:10 05/21/17 19:10 05/22/17 04:35 05/22/17 07:29 Total Bilirubin 0.5 mg/dl (0.2-1) Direct Bilirubin 0.2 mg/dl (0-0.2) Aspartate Amino Transf (AST/SGOT) 16 U/L (15-37) Alanine Aminotransferase (ALT/SGPT) 30 U/L (12-78) Alkaline Phosphatase 109 U/L (45-117) Total Protein 7.4 gm/dl (6.4-8.2) Albumin 3.5 gm/dl (3.4-5.0) Lipase 246 U/L (73-393) Lactic Acid Level 1.5 mmol/L (0.4-2.0) Urine Color YELLOW Urine Appearance CLEAR (CLEAR) Urine pH 5.0 (4.5-7.5) Urine Specific [place] 1.020 (1.000-1.030) Urine Protein TRACE (NEG) Urine Glucose (UA) NEG (NEG) Urine Ketones NEG (NEG) Urine Occult Blood NEG (NEG) Urine Nitrite NEG (NEG) Urine Bilirubin NEG (NEG) Urine Urobilinogen NEG (NEG) Urine Leukocyte Esterase SMALL (NEG) Urine WBC (Auto) 10-30 /hpf (0-5) Urine RBC (Auto) 0-4 /hpf (0-4) Urine Hyaline Casts (Auto) >30 /lpf (0-5) Urine Epithelial Cells (Auto) 10-20 /lpf (0-5) Urine Bacteria (Auto) 1+ (NEG) Urine Pathogenic Casts 10-20 GRANULAR CASTS /lpf (0) Immature Granulocyte % (Auto) 0.3 % White Blood Count 6.49 K/uL (4.8-10.8) Red Blood Count 4.30 M/uL (4.7-6.1) Hemoglobin 12.7 g/dL (14.0-18.0) Hematocrit 38.2 % (42-52) Mean Corpuscular Volume 88.8 fL (80-100) Mean Corpuscular Hemoglobin 29.5 pg (25-34) Mean Corpuscular Hemoglobin Concent 33.2 g/dl (32-36) Platelet Count 181 K/uL (130-400) Mean Platelet Volume 10.9 fL (7.4-10.4) Neutrophils (%) (Auto) 81.2 % Lymphocytes (%) (Auto) 16.3 % Monocytes (%) (Auto) 2.2 % Eosinophils (%) (Auto) 0.0 % Basophils (%) (Auto) 0.0 % Neutrophils # (Auto) 5.27 K/uL (1.4-6.5) Lymphocytes # (Auto) 1.06 K/uL (1.2-3.4) Monocytes # (Auto) 0.14 K/uL (0.11-0.59) Eosinophils # (Auto) 0.00 K/uL (0-0.5) Basophils # (Auto) 0.00 K/uL (0-0.2) Immature Granulocyte # (Auto) 0.02 K/uL (0.00-0.02) Test 05/23/17 06:38 05/23/17 08:21 05/23/17 16:40 Red Blood Count 4.24 M/uL (4.7-6.1) Mean Corpuscular Volume 87.7 fL (80-100) Mean Corpuscular Hemoglobin 29.0 pg (25-34) Mean Corpuscular Hemoglobin Concent 33.1 g/dl (32-36) RDW Standard Deviation 48.2 fL (36.4-46.3) RDW Coefficient of Variation 15.0 % (11.5-14.5) Mean Platelet Volume 10.4 fL (7.4-10.4) Anion Gap 4.0 mmol/L (3-11) Est Creatinine Clear Calc Drug Dose 51.6 ml/min Estimated GFR () 57.0 Estimated GFR (Non- 49.2 BUN/Creatinine Ratio 12.5 (10-20) Calcium Level 9.6 mg/dl (8.5-10.1) Phosphorus Level 2.4 mg/dl (2.5-4.9) Magnesium Level 1.7 mg/dl (1.8-2.4) Bedside Glucose 140 mg/dl (70-99) Date/Time Source Procedure Growth Status 05/22/17 15:46 Stool C.difficile Toxin B Gene (PCR) - Final No C. difficile toxin B gene detected Complete 05/22/17 04:35 Urine , Clean Catch Urine Culture - Preliminary NO GROWTH - LESS THAN 1,000 COLONIES/... Resulted Last 24 Hours Test 05/22/17 20:10 05/22/17 22:25 05/23/17 06:38 05/23/17 08:21 Bedside Glucose 191 mg/dl 249 mg/dl White Blood Count 8.12 K/uL Red Blood Count 4.24 M/uL Hemoglobin 12.3 g/dL Hematocrit 37.2 % Mean Corpuscular Volume 87.7 fL Mean Corpuscular Hemoglobin 29.0 pg Mean Corpuscular Hemoglobin Concent 33.1 g/dl RDW Standard Deviation 48.2 fL RDW Coefficient of Variation 15.0 % Platelet Count 176 K/uL Mean Platelet Volume 10.4 fL Sodium Level 138 mmol/L Potassium Level mmol/L 4.3 mmol/L Chloride Level 111 mmol/L Carbon Dioxide Level 23 mmol/L Anion Gap 4.0 mmol/L Blood Urea Nitrogen 19 mg/dl Creatinine 1.50 mg/dl Est Creatinine Clear Calc Drug Dose 51.6 ml/min Estimated GFR () 57.0 Estimated GFR (Non- 49.2 BUN/Creatinine Ratio 12.5 Random Glucose 153 mg/dl Calcium Level 9.6 mg/dl Phosphorus Level 2.4 mg/dl Magnesium Level mg/dl 1.7 mg/dl Test 05/23/17 08:53 05/23/17 11:41 Bedside Glucose 150 mg/dl 102 mg/dl Assessment & Plan 62 yoM with chronic diarrhea and recent c-diff in setting of UC and GI issues for 15 years presents with worsened non-bloody diarrhea after discharge two weeks ago. 1. Abdominal pain/Diarrhea-recent c-diff infection and has remained on vanc PO with extension of taper per GI outpatient. Repeat c-diff as outpatient was negative and so was the test done here. Cont contact precautions with persistent diarrhea, which is improved. CT revealed no acute issues and consistent with diarrheal state. Cholestyramine per GI recs, Octreotide started yesterday with only 1-2 BMs today and these were partially formed per nurse. Pt reports worsened abdominal pain and is very upset that he hasn't received his IV pain medication in the last hour. It was explained clearly to him that I strongly recommend no more IV dilaudid and to use PO narcotics for his pain instead. He initially verbalized that he again didn't want to take the PO pain medication because the dilaudid made him feel better and acted much faster. I explained that whle that was the case, this was inappropriate management of his chronic pain as the dilaudid would bring him up and then he would withdraw until the next injection, making him very agitated and in even more pain. He said he didn't care, and that he knew his body, and if he couldn' t have the Dilaudid IV then he would just "suffer." I asked why and he couldn' t give me a reason. He stated before this that in that past the percocet PO worked fine for him, and that his pain comes in flares and is not constant. He then burst into tears and broke down citing a flood of issues that are background stressors including issues wtih his 's health, issues with his health and the uncertainty of the diagnosis or when he will need to go the restroom again in public, how he recently lost a nephew in [place]. He was also upset that he was told to stay in his room because he was on contact precautions and might contaminate someone. I spoke with the nurses and CNAs on the floor to clarify that this was OK; I encouraged the patient to walk around or go get some fresh air downstairs, which he was considering when I left. He will be continued on Dilaudid IV q3h PRN pain for today and will re-evaluate every day. Consulted psych and pain management for assistance. 2. Adjustment reaction-I am concerned for the multiude of stressors above and his clear inability to cope with it all. The dilaudid is making things worse, in my opinion, but he is refusing to take PO pain meds and clearly has pain. Consulted psych as above. Pt is on Prozac. 3. Bradycardia-hold metoprolol. If persistently low,will obtain EKG 4. Adrenal insufficiency-chronic, cont Cortef 5. Hypotension--resolved, restarting lisinopril now. 6. UC-takes hydrocortisone regularly to control flares and in setting of chronic adrenal insufficiency. Recent colonoscopy was 02/20/17 while he was hospitalized for a UC flare. Cont per GI. 7. Chronic adrenal insufficiency-stable, cont home dose of hydrocortisone. 8. CAD-stable, no active ACS or concerning symptoms. Cont medical management with ASA, statin, Lopressor. TTE normal during last hospitalization and Cardiology evaluated him. Hold Imdur as above. 9. DMII: Lantus/ISS per pharmacy recs. Sugar is controlled. 10. COPD-not oxygen-dependent and is stable without wheezing on exam. Cont Spiriva and Nicoderm patch to control cravings to smoke. 11. Tobacco abuse-Nicotine replacement given. 12. Iron-deficiency anemia-holding outpatient iron supplementation now. 13. CRISTIAN 2/2 acute illness. Normal creat at baseline. Cont IVF in setting of persistent diarrhea. 14. Acute hyperkalemia 2/2 potassium supplementation and OJ yesterday- resolved. DVT proph: Heparin Full code DO Macario Rodgers Hospitalist Consultants: GI, pain, psych Current Inpatient Medications: Current Inpatient Medications Medications (Trade) Dose Ordered Sig/Tisha Route Start Time Stop Time Status Last Admin Dose Admin Miscellaneous (Iv Fluids Completed) 1 ea PRN PRN N/A 05/21/17 22:30 05/21/18 22:29 Acetaminophen (Tylenol Tab) 650 mg Q4H PRN PO 05/21/17 23:00 06/20/17 22:59 Insulin Aspart (novoLOG ASPART) SLIDING SCALE If C... ACHS SC 05/22/17 06:30 06/21/17 06:59 05/23/17 13:58 5 UNITS Glucose (Glucose 40% Gel) 15-30 GRAMS 15 GRAMS... UD PRN PO 05/21/17 23:00 06/20/17 22:59 Glucose (Glucose Chew Tab) 4-8 Tablets 4 Tabl... UD PRN PO 05/21/17 23:00 06/20/17 22:59 Dextrose (Dextrose 50% 50ML Syringe) 25-50ML OF 50% DW IV FOR... UD PRN IV 05/21/17 23:00 06/20/17 22:59 Glucagon (Glucagon Inj) 1 mg UD PRN SQ 05/21/17 23:00 06/20/17 22:59 Alprazolam (Xanax Tab) 0.5 mg HS PRN PO 05/21/17 23:00 06/20/17 22:59 Aspirin (Ecotrin Tab) 81 mg QAM PO 05/22/17 08:00 06/21/17 07:59 05/23/17 08:39 81 MG Atorvastatin Calcium (Lipitor Tab) 80 mg DAILY PO 05/22/17 08:00 06/21/17 07:59 05/23/17 08:39 80 MG Fluoxetine HCl (Prozac Cap) 20 mg QAM PO 05/22/17 08:00 06/21/17 08:59 05/23/17 08:42 20 MG Hydrocortisone (Cortef Tab) 20 mg QAM PO 05/22/17 08:00 06/21/17 08:59 05/23/17 08:41 20 MG Oxycodone/ Acetaminophen (Percocet 5-325mg Tab) 1 tab Q4H PRN PO 05/21/17 23:00 06/04/17 22:59 05/22/17 13:19 1 TAB Ranitidine HCl (zANTac TAB) 150 mg BID PO 05/22/17 08:00 06/21/17 08:59 05/23/17 08:40 150 MG Vancomycin HCl (Vancomycin Oral Soln) 125 mg Taper TID PO 05/22/17 09:00 06/17/17 07:59 05/23/17 14:02 125 MG Cholestyramine Resin (Questran Powder Light) 4 gm DAILY@2300 PO 05/23/17 23:00 06/22/17 22:59 Miscellaneous Information (Order Awaiting Action) 1 ea QS N/A 05/22/17 08:00 06/21/17 07:59 Lactobacillus Acidophilus (Floranex Tab) 4 tab DAILY PO 05/22/17 08:00 06/21/17 07:59 05/23/17 08:41 4 TAB Mirtazapine (Remeron Tab) 30 mg HS PRN PO 05/21/17 23:00 06/20/17 22:59 Ondansetron HCl (Zofran Inj) 4 mg Q6H PRN IV 05/21/17 23:00 06/20/17 22:59 Promethazine HCl 12.5 mg/Sodium Chloride 50.5 ml @ 204 mls/hr Q6H PRN IV 05/21/17 23:00 06/20/17 22:59 Nicotine (Nicoderm Cq 7 Mg Patch) 1 patch QAM TD 05/22/17 08:00 06/21/17 08:59 05/23/17 08:42 1 PATCH Miscellaneous (Remove Nicoderm Patch) 1 ea HS N/A 05/22/17 21:00 06/21/17 20:59 05/22/17 22:26 1 EA Insulin Glargine (Lantus Solostar Pen) 5 units BID SC 05/22/17 08:00 06/21/17 08:59 05/23/17 09:01 5 UNITS Metoprolol Tartrate (Lopressor Tab) 12.5 mg BID PO 05/22/17 08:00 06/21/17 08:59 05/23/17 08:58 12.5 MG Heparin Sodium (Porcine) (Heparin Sq 5000 Unit/0.5ml) 5,000 unit Q8 SQ 05/22/17 06:00 06/21/17 05:59 05/23/17 13:58 5,000 UNIT Lorazepam 0.5 mg/ Syringe 1 ml @ 1 mls/min Q4H PRN IV 05/22/17 00:30 06/21/17 00:29 Hydrocortisone (Cortef Tab) 10 mg DAILY@1800 PO 05/22/17 18:00 06/21/17 17:59 05/22/17 18:01 10 MG Diphenoxylate HCl/ Atropine (Lomotil Tab) 1 tab TID PO 05/22/17 08:00 06/21/17 07:59 05/23/17 14:03 1 TAB Raspberry (Raspberry Syrup 5ml Cup) 5 ml Taper TID PO 05/22/17 08:00 06/17/17 07:59 05/23/17 13:59 5 ML Tiotropium [place] (Spiriva Handihaler Inhaler) 1 puff DAILY INH 05/23/17 08:00 06/22/17 07:59 05/23/17 08:43 1 PUFF Budesonide (Entocort EC Cap) 9 mg QAM PO 05/23/17 08:00 06/22/17 07:59 05/23/17 08:39 9 MG Hydromorphone HCl (Dilaudid Inj) 0.5 mg Q3H PRN IV 05/22/17 18:00 06/04/17 22:59 05/23/17 15:43 0.5 MG Octreotide Acetate 50 mcg/ Syringe 5 ml @ 3 mls/min Q8@0200,1000,1800 IV 05/22/17 18:00 06/21/17 17:59 05/23/17 10:40 3 MLS/MIN Miscellaneous Information (Consult Glycemic Management Pharmacy) 1 ea UD PRN N/A 05/23/17 07:51 06/22/17 07:50
[2017-05-23] MEDS: SODIUM CHLORIDE 0.9% 1000ML 1,000 ML IV SCH (18:00)
[2017-05-23] MEDS: CHOLESTYRAMINE LIGHT 4 GM PKT PO SCH (22:03)
[2017-05-23 23:55] VITALS: BP 170/88; PULSE 55; TEMP 36.7; O2SAT 99
[2017-05-24] MEDS: HYDROmorphone INJ 0.5 MG/0.5 ML SYR IV PRN ×6 (01:06→21:30)
[2017-05-24] MEDS: SODIUM CHLORIDE 0.9% 1000ML 1,000 ML IV SCH ×2 (01:07→09:29)
[2017-05-24] MEDS: OCTREOTIDE ACETATE IV SCH ×3 (01:10→18:10)
[2017-05-24] MEDS: HEPARIN SOD 5000 UNIT/0.5 ML CARP SQ SCH ×3 (05:01→21:32)
[2017-05-24 05:04] VITALS: BP 178/87; PULSE 48
[2017-05-24] MEDS ORDERED: ISOSORBIDE MONONITRATE 60 MG TABCR PO ONE (05:18)
[2017-05-24 06:50] LABS: HEMATOCRIT 34.8 % (42-52); MEAN CELL VOLUME 88.8 fL (80-100); MEAN CORPUSCULAR HEMOGLOBIN 29.1 pg (25-34); MEAN CORPUSCULAR HGB CONC 32.8 g/dl (32-36); MEAN PLATELET VOLUME 10.6 fL (7.4-10.4); PLATELET COUNT 183 K/uL (130-400); RED BLOOD COUNT 3.92 M/uL (4.7-6.1); WHITE BLOOD COUNT 8.17 K/uL (4.8-10.8)
[2017-05-24 07:27] LABS: BUN/CREATININE RATIO 13.8 (10-20); CALCIUM 8.3 mg/dl (8.5-10.1); CREATININE 1.3 mg/dl (0.60-1.40); MAGNESIUM 1.9 mg/dl (1.8-2.4); POTASSIUM 4.1 mmol/L (3.5-5.1)
[2017-05-24 07:55] VITALS: BP_SYST 155; BP_SYST 197; BP_DIAS 83; BP_DIAS 98; PULSE 58; TEMP 36.7; O2SAT 100
[2017-05-24] MEDS: DIPHENOXYLATE/ATROPINE 2.5/0.025MG TAB PO SCH ×3 (08:56→19:47)
[2017-05-24] MEDS: RANITIDINE HCL 150 MG TAB PO SCH ×2 (08:56→19:47)
[2017-05-24] MEDS: TIOTROPIUM BROMIDE 5 PUFF/90 MCG INH INH SCH (08:56)
[2017-05-24] MEDS: LACTOBACILLUS ACIDOPHILUS (FLORANEX) TAB PO SCH (08:57)
[2017-05-24] MEDS: ATORVASTATIN 40 MG TAB PO SCH (08:57)
[2017-05-24] MEDS: ASPIRIN 81 MG ECTAB PO SCH (08:57)
[2017-05-24] MEDS: HYDROCORTISONE 10 MG TAB PO SCH ×2 (08:58→18:11)
[2017-05-24] MEDS: FLUOXETINE HCL 20 MG CAP PO SCH (09:00)
[2017-05-24] MEDS: RASPBERRY SYRUP 5 ML UDP PO SCH ×3 (09:01→19:47)
[2017-05-24] MEDS: NICOTINE 7 MG/24 HR TDSY TD SCH (09:02)
[2017-05-24] MEDS: INSULIN ASPART 100 UNITS/ML 3 ML PEN SC SCH ×4 (09:11→21:18)
[2017-05-24] MEDS: INSULIN GLARGINE SOLOSTAR 100 UNITS/ML 3 ML PEN SC SCH ×2 (09:12→19:52)
[2017-05-24] MEDS: VANCOMYCIN HCL 125 MG/2.5ML SOLN PO SCH ×3 (09:13→19:50)
[2017-05-24] MEDS: LISINOPRIL 5 MG TAB PO SCH (09:30)
[2017-05-24] MEDS ORDERED: FLUOXETINE HCL 10 MG CAP PO ONE (10:00)
--- NOTE | 2017-05-24 10:06 | Psychiatric Consultation ---
Psychiatric Consultation Date of Service: May 24, 2017. Identifying Data Nuno Urbina is a 61-year-old male who currently lives in [place]. Mr. Urbina was admitted on 02/19/17 for abdominal pain and chronic diarrhea. Patient is known to me from psychiatric consultation on 02/20/17. Chief Complaint "everything is still a mess". History of Present Illness Since last contact Mr. Urbina was able to spend time in [place] and [place] with his family. His daughter and 2 children (13 and 9) moved in with their dogs and horse so now the home is a bit more chaotic. Mr. Urbina states that it bothers him that he is listed as contact precautions despite 3 negative Cdif cultures. He became upset with MD yesterday over pain control but is calm this am and glad that his stools are a little more formed and he has "warning" to use bathroom rather than being incontinent. Per January consultation: Mr. Urbina states that he hasn't really ever thought about seeing a therapist but admittedly feels deflated after his nephew's in [place] last weekend. His sister's only child was a professional senior statistical programmer and suddenly of an [place] at the age of 20. She is currently in [facility] to "bring him home", meaning [place] where he is also from. Mr. Urbina' was diagnosed with breast cancer last year and has developed infections from surgeries and lost her job. Their disability was denied. 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 The are working with an power ballast machine operator but he feels it's hopeless in the sense that it's a "racket" where power ballast machine operator takes 25 %. He admittedly stopped his Wellbutrin about a month ago as he didn't feel that it was helping. He is unsure how long he has been on his current dose of Zoloft and would prefer to be back on Prozac which helped him through a "rough time" many years ago. PHQ 9=22, no suicidal ideation Past Psychiatric History Current OP Treatment: no current treatment Prior OP Treatment: no prior treatment Access to a Gun: Yes, was notified/secured last consult Suicide Attempts: No Past Medication Trials as above per PCP/PA Past Medical/Surgical History (1) Coronary artery disease (2) Hypercholesteremia (3) Hypertension (4) Diabetes (5) Adrenal insufficiency (6) Stented coronary artery (7) H/O percutaneous transluminal coronary angioplasty Allergies Allergies: Coded Allergies: Azathioprine (Verified Adverse Reaction, Unknown, RENAL COMPLICATIONS, 12/31) Home Medications Reported Home Medications Medications Dose Route/Sig Max Daily Dose Days Date Category Dose Instructions Proventil 0.083% 2.5MG/3ML (Albuterol Sulf) 2.5 Mg/3 Ml Nebu 2.5 Mg INH QID PRN 05/21/17 Reported Atarax (Hydroxyzine Hcl) 25 Mg Tab 50 Mg PO HS PRN 05/21/17 Reported Klor-Con M20 (Potassium Chloride) 20 Meq Tabcr 20 Meq PO DAILY 05/21/17 Reported Probiotic (Probiotic Product) 1 Cap Cap 1 Cap PO DAILY 05/21/17 Reported Fluoxetine HCl 20 Mg Cap 20 Mg PO QAM 05/21/17 Reported Percocet 5MG/325MG (Oxycodone/Acetaminophen) Tab 1 Tablet PO Q6H PRN 05/21/17 Reported PAIN Lopressor (Metoprolol Tartrate) 50 Mg Tab 50 Mg PO BID 05/21/17 Reported Vancomycin (Vancomycin Hcl) 125 Mg Cap 125 Mg PO UD 05/21/17 Reported START 05/19/2017, ONE 3X DAILY FOR 7 DAYS, ONE 2X DAILY FOR 7 DAYS, ONE DAILY FOR 7 DAYS, ONE QOD FOR 7 DAYS. Lomotil (Diphenoxylate HCl/Atropine) Tab 1 Tab PO TID 05/21/17 Reported Questran (Cholestyramine) 4 Gm Pow 4 Gm PO HS 05/21/17 Reported mix with liquid Humalog (Insulin Lispro (Human)) 100 Unit/Ml Inj SC ACHS 05/03/17 Reported SLIDING SCALE, MAX UNITS DAILY, 40 UNITS Ventolin Hfa (Albuterol) 200 Puffs/09670 Mcg Aers 3-4 Puffs INH QID PRN 04/22/17 Rx Duoneb (Ipratropium-Albuterol) 3 Ml Nebu 1 Treatment INH QID PRN 04/22/17 Rx Spiriva Handihaler (Tiotropium [place]) 30 Puff/540 Mcg Aerp 1 Cap INH DAILY 04/20/17 Reported Lantus (Insulin Glargine) 100 Unit/Ml Inj 10-20 Units SC UD 04/20/17 Reported USE DIRECTED Remeron Soltab (Mirtazapine) 30 Mg Soltab 30 Mg PO HS 04/20/17 Reported Breo Ellipta (Fluticasone Furoate-Vilanterol) 1 Inh Inh 1 Inha PO DAILY 02/19/17 Reported Lipitor (Atorvastatin Calcium) 80 Mg Tab 1 Tab PO DAILY 30 02/19/17 Reported Cortef (Hydrocortisone) 10 Mg Tab 10 Mg PO QPM 02/19/17 Reported 1 TABLET EVERY EVENING. INCREASE DIRECTED FOR ILLNESS Dexamethasone Sodium Phos (Dexamethasone Sod Phos) 4 Mg/Ml Inj 1 Ml IM DIRECTED PRN 02/19/17 Reported Xanax (Alprazolam) 0.5 Mg Tab 0.5 Mg PO HS PRN 04/08/16 Reported Zestril (Lisinopril) 5 Mg Tab 5 Mg PO QAM 04/08/16 Reported Imdur Ext Rel (Isosorbide Mononitrate) 60 Mg Ertab 60 Mg PO QAM 04/08/16 Reported Aspirin Chewable (Aspirin) 81 Mg Chew 81 Mg PO QAM 04/08/16 Reported Cortef (Hydrocortisone) 10 Mg Tab 20 Mg PO QAM 04/08/16 Reported 2 TAB LETS EVERY MORNINIG. 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 Examination Mental Examination During interview pt is: alert and oriented Appearance: appropriately groomed Eye contact is: good Motor behavior is: no abnormal motor movements Speech: normal in rate, rhythm & volume Affect: depressed Mood is: depressed Thought process: clear, coherent Thought content: reality based without delusions Suicidal thought are: denied Homicidal thoughts are: denied Hallucinations: denies auditory, denies visual Cognition: memory grossly intact, attention grossly intact, language grossly intact Intelligence estimated to be: consistent with level of education Insight: fair Judgement: fair Impression / Recommendations Impression 61 yo male with a history of depression who presents with ongoing symptoms on low dose Prozac that wasn't titrated following January hospitalization. Recommendations (1) Major depressive disorder, recurrent episode with anxious distress no indication for inpatient psychiatric admission titrate Prozac 30 mg, goal 40 mg if tolerates he is still declining outpatient therapy referral would avoid Xanax as prn for sleep, defer to order from primary service Note: I do not view patient as drug seeking. 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 His medical condition, particularly the diarrhea is an insult to his ego and he is classic stage of "ego integrity vs despair". It would be helpful to present choices to him to perserve feelings of autonomy.
[2017-05-24 11:35] VITALS: BP 132/78
--- NOTE | 2017-05-24 14:28 | Progress Note ---
Progress Note Date of Service May 24, 2017. Progress Note Mr. Urbina continues to complain of multiple small but watery bowel movements. Though the addition of Octreotide seems to have decreased his number of bowel movements. He still has both left and right sided abdominal pain. No fever, no nausea or vomiting. His at bedside was very concerned about him being on Entocort and further "steroid damage". The patient and his were concerned about being discharged and thought he would be back in the hospital "in time for fireworks". At this point I would continue the octreotide, stop the Entocort and get a 24- 48 hour fecal collection for volume and fat content. Sebastian Williamson M.D.
[2017-05-24 15:54] VITALS: BP 131/71; PULSE 57; TEMP 36.8; O2SAT 98
--- NOTE | 2017-05-24 17:18 | Progress Note ---
Medicine Progress Note Date & Time of Visit: May 24, 2017 at 15:55. Subjective 62 yoM with chronic diarrhea and recent c-diff in setting of UC and GI issues for 15 years presents with worsened non-bloody diarrhea after discharge two weeks ago. -reports persistent pain that is the same today, no better or worse. -pain described as a lead weight that occasionally gets sharp and stabbing especially in the lower abdomen -pt is very pessimistic saying things like "I worked all those years for nothing. Look at us now." -it is very apparent his outlook for the future is poor -psych evaluated him this morning and no drug-seeking behavior or depression was apparent -tolerating PO -ambulatory -reports 8+ BMs that is a worsening of his diarrhea. Objective Last 8 Hrs Date Time Temp Pulse Resp B/P (MAP) Pulse Ox O2 Delivery O2 Flow Rate FiO2 05/24/17 15:54 36.8 57 16 131/71 (91) 98 Room Air 05/24/17 11:35 132/78 (96) 05/24/17 08:00 Room Air Physical Exam: GEN: WNWD, alert and appropriate, NAD HEENT: NC/AT, pupils are equal and round bilaterally, normal sclerae/ conjunctivae CARDIO: reg rate, S1/2 heard without m/g/r LUNGS: CTA bilaterally, no crackles, rales or wheezes, good diaphragmatic excursion ABD: soft, generalized TTP all throughout abdomen, pt is now jumping just prior to me touching his abdomen, non-distended, +BS EXTREMITY: wwp N/M: no gross focal deficits. SKIN: warm and dry Laboratory Results: 05/24/17 06:30 05/24/17 06:30 Test 05/21/17 18:10 05/21/17 19:10 05/22/17 04:35 05/22/17 07:29 Total Bilirubin 0.5 mg/dl (0.2-1) Direct Bilirubin 0.2 mg/dl (0-0.2) Aspartate Amino Transf (AST/SGOT) 16 U/L (15-37) Alanine Aminotransferase (ALT/SGPT) 30 U/L (12-78) Alkaline Phosphatase 109 U/L (45-117) Total Protein 7.4 gm/dl (6.4-8.2) Albumin 3.5 gm/dl (3.4-5.0) Lipase 246 U/L (73-393) Lactic Acid Level 1.5 mmol/L (0.4-2.0) Urine Color YELLOW Urine Appearance CLEAR (CLEAR) Urine pH 5.0 (4.5-7.5) Urine Specific [place]nn 1.020 (1.000-1.030) Urine Protein TRACE (NEG) Urine Glucose (UA) NEG (NEG) Urine Ketones NEG (NEG) Urine Occult Blood NEG (NEG) Urine Nitrite NEG (NEG) Urine Bilirubin NEG (NEG) Urine Urobilinogen NEG (NEG) Urine Leukocyte Esterase SMALL (NEG) Urine WBC (Auto) 10-30 /hpf (0-5) Urine RBC (Auto) 0-4 /hpf (0-4) Urine Hyaline Casts (Auto) >30 /lpf (0-5) Urine Epithelial Cells (Auto) 10-20 /lpf (0-5) Urine Bacteria (Auto) 1+ (NEG) Urine Pathogenic Casts 10-20 GRANULAR CASTS /lpf (0) Immature Granulocyte % (Auto) 0.3 % White Blood Count 6.49 K/uL (4.8-10.8) Red Blood Count 4.30 M/uL (4.7-6.1) Hemoglobin 12.7 g/dL (14.0-18.0) Hematocrit 38.2 % (42-52) Mean Corpuscular Volume 88.8 fL (80-100) Mean Corpuscular Hemoglobin 29.5 pg (25-34) Mean Corpuscular Hemoglobin Concent 33.2 g/dl (32-36) Platelet Count 181 K/uL (130-400) Mean Platelet Volume 10.9 fL (7.4-10.4) Neutrophils (%) (Auto) 81.2 % Lymphocytes (%) (Auto) 16.3 % Monocytes (%) (Auto) 2.2 % Eosinophils (%) (Auto) 0.0 % Basophils (%) (Auto) 0.0 % Neutrophils # (Auto) 5.27 K/uL (1.4-6.5) Lymphocytes # (Auto) 1.06 K/uL (1.2-3.4) Monocytes # (Auto) 0.14 K/uL (0.11-0.59) Eosinophils # (Auto) 0.00 K/uL (0-0.5) Basophils # (Auto) 0.00 K/uL (0-0.2) Immature Granulocyte # (Auto) 0.02 K/uL (0.00-0.02) Test 05/23/17 06:38 05/24/17 06:30 05/24/17 11:28 Phosphorus Level 2.4 mg/dl (2.5-4.9) Red Blood Count 3.92 M/uL (4.7-6.1) Mean Corpuscular Volume 88.8 fL (80-100) Mean Corpuscular Hemoglobin 29.1 pg (25-34) Mean Corpuscular Hemoglobin Concent 32.8 g/dl (32-36) RDW Standard Deviation 49.3 fL (36.4-46.3) RDW Coefficient of Variation 15.2 % (11.5-14.5) Mean Platelet Volume 10.6 fL (7.4-10.4) Anion Gap 6.0 mmol/L (3-11) Est Creatinine Clear Calc Drug Dose 59.6 ml/min Estimated GFR () 67.8 Estimated GFR (Non- 58.5 BUN/Creatinine Ratio 13.8 (10-20) Calcium Level 8.3 mg/dl (8.5-10.1) Magnesium Level 1.9 mg/dl (1.8-2.4) Bedside Glucose 114 mg/dl (70-99) Date/Time Source Procedure Growth Status 05/22/17 15:46 Stool C.difficile Toxin B Gene (PCR) - Final No C. difficile toxin B gene detected Complete 05/22/17 04:35 Urine , Clean Catch Urine Culture - Final NO GROWTH - LESS THAN 1,000 COLONIES/ML Complete Last 24 Hours Test 05/23/17 16:40 05/23/17 19:54 05/24/17 06:30 05/24/17 07:51 Bedside Glucose 140 mg/dl 236 mg/dl 172 mg/dl White Blood Count 8.17 K/uL Red Blood Count 3.92 M/uL Hemoglobin 11.4 g/dL Hematocrit 34.8 % Mean Corpuscular Volume 88.8 fL Mean Corpuscular Hemoglobin 29.1 pg Mean Corpuscular Hemoglobin Concent 32.8 g/dl RDW Standard Deviation 49.3 fL RDW Coefficient of Variation 15.2 % Platelet Count 183 K/uL Mean Platelet Volume 10.6 fL Sodium Level 143 mmol/L Potassium Level 4.1 mmol/L Chloride Level 114 mmol/L Carbon Dioxide Level 23 mmol/L Anion Gap 6.0 mmol/L Blood Urea Nitrogen 18 mg/dl Creatinine 1.30 mg/dl Est Creatinine Clear Calc Drug Dose 59.6 ml/min Estimated GFR () 67.8 Estimated GFR (Non- 58.5 BUN/Creatinine Ratio 13.8 Random Glucose 173 mg/dl Calcium Level 8.3 mg/dl Magnesium Level 1.9 mg/dl Test 05/24/17 11:28 Bedside Glucose 114 mg/dl Assessment & Plan 62 yoM with chronic diarrhea and recent c-diff in setting of UC and GI issues for 15 years presents with worsened non-bloody diarrhea after discharge two weeks ago. 1. Abdominal pain/Diarrhea-recent c-diff infection and has remained on vanc PO with extension of taper per GI outpatient. Repeat c-diff as outpatient was negative and so was the test done here. Cont contact precautions with persistent diarrhea, which is improved. CT revealed no acute issues and consistent with diarrheal state. Cholestyramine per GI recs, Octreotide and Lomotil started 05/22 with "improvement" in stool frequency with only 1-2 BMs the following day and these were partially formed per nurse. Somehow the collection hat was removed overnight, and then there were reports of 8+ BMs today consistent with worsening diarrhea. GI evaluated and agrees with 24 hour stool collection for fecal fat and volume. Pt and nursing are aware of this order. Continuing with Dilaudid IV as patient refuses anything else for pain. Will add some percocet PRN as he did say these helped in the past when he was at home and dilaudid was not available. 2. Adjustment reaction-I am concerned for the multiude of stressors above and his clear inability to cope with it all. The dilaudid is making things worse, in my opinion, but he is refusing to take PO pain meds and clearly has pain. Pt on Prozac. Psych sees no drug-seeking behavior and recommends dcing the Xanax. 3. Bradycardia-Metoprolol stopped with improvement in HR. Cont to monitor. 4. Adrenal insufficiency-chronic, cont Cortef 5. Hypotension--resolved, and restarted lisinopril again yesterday afternoon. Was high this morning with resolution after morning dose. 6. UC-takes hydrocortisone regularly to control flares and in setting of chronic adrenal insufficiency. Recent colonoscopy was 02/20/17 while he was hospitalized for a UC flare. Cont per GI. 7. CAD-stable, no active ACS or concerning symptoms. Cont medical management with ASA, statin, Lopressor, Imdur. TTE normal during last hospitalization and Cardiology evaluated him. 8. DMII: Lantus/ISS per pharmacy recs. Sugar is controlled. 9. COPD-not oxygen-dependent and is stable without wheezing on exam. Cont Spiriva and Nicoderm patch to control cravings to smoke. 10. Tobacco abuse-Nicotine replacement given. 11. Iron-deficiency anemia-holding outpatient iron supplementation now. 12. CRISTIAN 2/2 acute illness.-resolved, stopping IVF. DVT proph: Heparin Full code Dispo-uncertain, but should be going home when diarrhea and pain improve. DO Macario Rodgers Hospitalist Consultants: GI, pain, psych Current Inpatient Medications: Current Inpatient Medications Medications (Trade) Dose Ordered Sig/Tisha Route Start Time Stop Time Status Last Admin Dose Admin Miscellaneous (Iv Fluids Completed) 1 ea PRN PRN N/A 05/21/17 22:30 05/21/18 22:29 Acetaminophen (Tylenol Tab) 650 mg Q4H PRN PO 05/21/17 23:00 06/20/17 22:59 Insulin Aspart (novoLOG ASPART) SLIDING SCALE If C... ACHS SC 05/22/17 06:30 06/21/17 06:59 05/24/17 12:20 5 UNITS Glucose (Glucose 40% Gel) 15-30 GRAMS 15 GRAMS... UD PRN PO 05/21/17 23:00 06/20/17 22:59 Glucose (Glucose Chew Tab) 4-8 Tablets 4 Tabl... UD PRN PO 05/21/17 23:00 06/20/17 22:59 Dextrose (Dextrose 50% 50ML Syringe) 25-50ML OF 50% DW IV FOR... UD PRN IV 05/21/17 23:00 06/20/17 22:59 Glucagon (Glucagon Inj) 1 mg UD PRN SQ 05/21/17 23:00 06/20/17 22:59 Alprazolam (Xanax Tab) 0.5 mg HS PRN PO 05/21/17 23:00 06/20/17 22:59 Aspirin (Ecotrin Tab) 81 mg QAM PO 05/22/17 08:00 06/21/17 07:59 05/24/17 08:57 81 MG Atorvastatin Calcium (Lipitor Tab) 80 mg DAILY PO 05/22/17 08:00 06/21/17 07:59 05/24/17 08:57 80 MG Hydrocortisone (Cortef Tab) 20 mg QAM PO 05/22/17 08:00 06/21/17 08:59 05/24/17 08:58 20 MG Oxycodone/ Acetaminophen (Percocet 5-325mg Tab) 1 tab Q4H PRN PO 05/21/17 23:00 06/04/17 22:59 05/22/17 13:19 1 TAB Ranitidine HCl (zANTac TAB) 150 mg BID PO 05/22/17 08:00 06/21/17 08:59 05/24/17 08:56 150 MG Vancomycin HCl (Vancomycin Oral Soln) 125 mg Taper TID PO 05/22/17 09:00 06/17/17 07:59 05/24/17 14:22 125 MG Cholestyramine Resin (Questran Powder Light) 4 gm DAILY@2300 PO 05/23/17 23:00 06/22/17 22:59 05/23/17 22:03 4 GM Miscellaneous Information (Order Awaiting Action) 1 ea QS N/A 05/22/17 08:00 06/21/17 07:59 Lactobacillus Acidophilus (Floranex Tab) 4 tab DAILY PO 05/22/17 08:00 06/21/17 07:59 05/24/17 08:57 4 TAB Mirtazapine (Remeron Tab) 30 mg HS PRN PO 05/21/17 23:00 06/20/17 22:59 Ondansetron HCl (Zofran Inj) 4 mg Q6H PRN IV 05/21/17 23:00 06/20/17 22:59 Promethazine HCl 12.5 mg/Sodium Chloride 50.5 ml @ 204 mls/hr Q6H PRN IV 05/21/17 23:00 06/20/17 22:59 Nicotine (Nicoderm Cq 7 Mg Patch) 1 patch QAM TD 05/22/17 08:00 06/21/17 08:59 05/23/17 08:42 1 PATCH Miscellaneous (Remove Nicoderm Patch) 1 ea HS N/A 05/22/17 21:00 06/21/17 20:59 05/23/17 22:04 1 EA Insulin Glargine (Lantus Solostar Pen) 5 units BID SC 05/22/17 08:00 06/21/17 08:59 05/24/17 09:12 5 UNITS Heparin Sodium (Porcine) (Heparin Sq 5000 Unit/0.5ml) 5,000 unit Q8 SQ 05/22/17 06:00 06/21/17 05:59 05/24/17 14:29 5,000 UNIT Lorazepam 0.5 mg/ Syringe 1 ml @ 1 mls/min Q4H PRN IV 05/22/17 00:30 06/21/17 00:29 Hydrocortisone (Cortef Tab) 10 mg DAILY@1800 PO 05/22/17 18:00 06/21/17 17:59 05/23/17 18:01 10 MG Diphenoxylate HCl/ Atropine (Lomotil Tab) 1 tab TID PO 05/22/17 08:00 06/21/17 07:59 05/24/17 14:23 1 TAB Raspberry (Raspberry Syrup 5ml Cup) 5 ml Taper TID PO 05/22/17 08:00 06/17/17 07:59 05/24/17 14:23 5 ML Tiotropium [place] (Spiriva Handihaler Inhaler) 1 puff DAILY INH 05/23/17 08:00 06/22/17 07:59 05/24/17 08:56 1 PUFF Budesonide (Entocort EC Cap) 9 mg QAM PO 05/23/17 08:00 06/22/17 07:59 05/23/17 08:39 9 MG Hydromorphone HCl (Dilaudid Inj) 0.5 mg Q3H PRN IV 05/22/17 18:00 06/04/17 22:59 05/24/17 14:32 0.5 MG Octreotide Acetate 50 mcg/ Syringe 5 ml @ 3 mls/min Q8@0200,1000,1800 IV 05/22/17 18:00 06/21/17 17:59 05/24/17 10:19 3 MLS/MIN Miscellaneous Information (Consult Glycemic Management Pharmacy) 1 ea UD PRN N/A 05/23/17 07:51 06/22/17 07:50 Lisinopril (Zestril Tab) 5 mg QAM PO 05/24/17 08:00 06/23/17 07:59 05/24/17 09:30 5 MG Sodium Chloride 1,000 ml @ 125 mls/hr Q8H IV 05/23/17 17:30 05/24/17 17:29 05/24/17 09:29 125 MLS/HR Isosorbide Mononitrate (Imdur Ext Rel Tab) 60 mg QAM PO 05/25/17 08:00 06/24/17 07:59 Fluoxetine HCl (Prozac Cap) 30 mg QAM PO 05/25/17 08:00 06/21/17 08:59
[2017-05-24] MEDS: CHOLESTYRAMINE LIGHT 4 GM PKT PO SCH (21:29)
[2017-05-24 23:56] VITALS: BP 167/87; PULSE 55; TEMP 36.6; O2SAT 99
[2017-05-25] MEDS: HYDROmorphone INJ 0.5 MG/0.5 ML SYR IV PRN ×2 (00:31→04:04)
[2017-05-25] MEDS: OCTREOTIDE ACETATE IV SCH ×3 (01:29→18:45)
[2017-05-25] MEDS: HEPARIN SOD 5000 UNIT/0.5 ML CARP SQ SCH ×3 (05:46→21:02)
[2017-05-25] MEDS: LORAZEPAM INJ 0.5 MG in SYRINGE 0.75 ML IV PRN ×2 (05:49→11:52)
[2017-05-25 07:27] VITALS: BP 149/82; PULSE 63; TEMP 36.7; O2SAT 100
[2017-05-25 07:44] LABS: ESTIMATED AVERAGE GLUCOSE 171 mg/dl; HA1C FLAG Normal (Normal)
[2017-05-25 08:00] VITALS: O2SAT 100
[2017-05-25] MEDS: NICOTINE 7 MG/24 HR TDSY TD SCH (08:00)
[2017-05-25 08:13] LABS: BASO % 0.2 %; BASO ABS # 0.02 K/uL (0-0.2); COMPLETE YES; EOS % 2.1 %; IG% 0.3 %; LYMPH % 26.7 %; LYMPH ABS # 2.42 K/uL (1.2-3.4); MEAN CELL VOLUME 90.2 fL (80-100); MEAN CORPUSCULAR HEMOGLOBIN 29.1 pg (25-34); MEAN CORPUSCULAR HGB CONC 32.2 g/dl (32-36); MEAN PLATELET VOLUME 11.2 fL (7.4-10.4); MONO % 10.3 %; NEUT % 60.4 %; PLATELET COUNT 199 K/uL (130-400); RED BLOOD COUNT 3.99 M/uL (4.7-6.1); WHITE BLOOD COUNT 9.07 K/uL (4.8-10.8)
[2017-05-25] MEDS: TIOTROPIUM BROMIDE 5 PUFF/90 MCG INH INH SCH (08:30)
[2017-05-25] MEDS: ISOSORBIDE MONONITRATE 60 MG TABCR PO SCH (08:31)
[2017-05-25] MEDS: RANITIDINE HCL 150 MG TAB PO SCH ×2 (08:31→20:39)
[2017-05-25] MEDS: LACTOBACILLUS ACIDOPHILUS (FLORANEX) TAB PO SCH (08:31)
[2017-05-25] MEDS: DIPHENOXYLATE/ATROPINE 2.5/0.025MG TAB PO SCH ×3 (08:32→20:42)
[2017-05-25] MEDS: ATORVASTATIN 40 MG TAB PO SCH (08:32)
[2017-05-25] MEDS: LISINOPRIL 5 MG TAB PO SCH (08:32)
[2017-05-25] MEDS: HYDROCORTISONE 10 MG TAB PO SCH ×2 (08:32→18:34)
[2017-05-25] MEDS: ASPIRIN 81 MG ECTAB PO SCH (08:32)
[2017-05-25] MEDS: FLUOXETINE HCL 10 MG CAP PO SCH (08:33)
--- NOTE | 2017-05-25 08:41 | Pharmacy Progress Note ---
Glycemic Control Progress Note Date of Service May 25, 2017. Scope Glycemic Pharmacist consulted for glycemic control to write orders per [facility] inpatient glycemic control protocol. Objective Accuchecks BSG (last 24hrs): Test 05/24/17 11:28 05/24/17 16:44 05/24/17 20:21 05/25/17 07:47 Bedside Glucose 114 mg/dl (70-99) 163 mg/dl (70-99) 136 mg/dl (70-99) 197 mg/dl (70-99) Test 05/25/17 08:31 HbA1c: Test 05/24/17 06:30 Hemoglobin A1c 7.6 % (4.5-5.6) H Recent Pertinent Medications Outpatient Anti-diabetic Regimen: * Humalog sliding scale, up to 40 units/day * Lantus 10-20 units daily * A1c = 7.6 % 05/24/17 The patient is currently receiving: * Basal insulin: Lantus 5 units every 12 hours * Correctional Insulin: Novolog Correction per scale ACHS Goal Range: Low 110 mg/dL - High 140 mg/dL Correction Factor: 25 mg/dL/unit * Prandial insulin: Per carb ratio of 1 unit per 10 grams CHO consumed Risk Factors for Insulin Resistance: * Steroids: Hydrocortisone IV 100mg yesterday x1 and 25mg IV x1 ON 05/22; now on 20mg PO QAM and 10mg PO QPM (home doses) * Infection: Vancomycin PO (CDiff) * IVF: Sandostatin IV Q8H * Diet: Type 2 DM Assessment & Plan ASSESSMENT: * Fasting BSG elevated past two mornings above goal range, and blood sugar shaneka 60 points overnight last night, indicating patient requires more basal insulin. PLAN FOR INPATIENT GLYCEMIC CONTROL: * INCREASE: Lantus to 7 units SQ BID * Continue correction factor of 25 mg/dl/unit * Continue carb ratio of 1 unit per 10 grams CHO consumed * Continue goal range of Low 110 mg/dL - High 140 mg/dL * Please note that the plan above was derived based on current level of insulin resistance and hospital stress. These recommendations are appropriate for inpatient admission only. Plan of care upon discharge will need to be reassessed to avoid potential outpatient hypo/hyperglycemia. Thank you.
[2017-05-25] MEDS: ONDANSETRON INJ 2 MG/ML 2 ML VIAL IV PRN ×2 (08:47→18:58)
[2017-05-25] MEDS: VANCOMYCIN HCL 125 MG/2.5ML SOLN PO SCH ×3 (08:47→20:29)
[2017-05-25] MEDS: RASPBERRY SYRUP 5 ML UDP PO SCH ×3 (08:47→20:29)
[2017-05-25] MEDS: INSULIN ASPART 100 UNITS/ML 3 ML PEN SC SCH ×4 (08:51→20:57)
[2017-05-25] MEDS: INSULIN GLARGINE SOLOSTAR 100 UNITS/ML 3 ML PEN SC SCH ×2 (08:51→21:00)
[2017-05-25] MEDS: OXYCODONE/ACETAMINOPHEN 7.5-325 TAB PO PRN ×3 (08:52→20:36)
[2017-05-25 09:05] LABS: BUN/CREATININE RATIO 10.4 (10-20); CALCIUM 8.7 mg/dl (8.5-10.1); CREATININE 1.5 mg/dl (0.60-1.40); POTASSIUM 3.5 mmol/L (3.5-5.1)
--- NOTE | 2017-05-25 11:42 | Pain Management Consultation ---
Pain Management Consultation Date of Consultation May 25, 2017. Reason for Consultation Abdominal pain and diarrhea History Mr. Urbina is a 62 year old white male that was recently admitted to the hospital 2 weeks ago for C. Diff. He was discharged to home on oral vancomycin but returned to the hospital because of persistent diarrhea and abdominal pain. He describes a sharp stabbing pain in the left lower abdomen that will radiate along to the right low abdomen. Right lower quadrant of abdomen is described as a deep aching sensation. He does continue to have numerous diarrhea episodes a day. Mariano sample is negative for c. diff currently. Patient has been refusing oral pain medications and requests Dilaudid IV only. He states that he has previously tolerate Percocet. Patient denies any fevers, chills, nausea, vomiting, flank pain. Case discussed with Dr. Martin Past Medical/Surgical History (1) Coronary artery disease (2) Abdominal pain (3) Hypercholesteremia (4) Hypertension (5) Diabetes (6) Adrenal insufficiency (7) Major depressive disorder, recurrent episode with anxious distress (8) ARF (acute renal failure) (9) Stented coronary artery (10) H/O percutaneous transluminal coronary angioplasty Family History Cancer Diabetes mellitus Heart disease Hypertension Social / Work History Smoking Status: Unknown if ever smoked Smokeless Tobacco Use: No Alcohol Use: occasionally Drug Use: none Marital Status: Housing Status: lives alone Occupation: retired, disabled Allergies Coded Allergies: Azathioprine (Verified Adverse Reaction, Unknown, RENAL COMPLICATIONS, ) Medications Current Inpatient Medications Medications (Trade) Dose Ordered Sig/Tisha Route Start Time Stop Time Status Last Admin Dose Admin Miscellaneous (Iv Fluids Completed) 1 ea PRN PRN N/A 05/21/17 22:30 05/21/18 22:29 Acetaminophen (Tylenol Tab) 650 mg Q4H PRN PO 05/21/17 23:00 06/20/17 22:59 Insulin Aspart (novoLOG ASPART) SLIDING SCALE If C... ACHS SC 05/22/17 06:30 06/21/17 06:59 05/25/17 08:51 7 UNITS Glucose (Glucose 40% Gel) 15-30 GRAMS 15 GRAMS... UD PRN PO 05/21/17 23:00 06/20/17 22:59 Glucose (Glucose Chew Tab) 4-8 Tablets 4 Tabl... UD PRN PO 05/21/17 23:00 06/20/17 22:59 Dextrose (Dextrose 50% 50ML Syringe) 25-50ML OF 50% DW IV FOR... UD PRN IV 05/21/17 23:00 06/20/17 22:59 Glucagon (Glucagon Inj) 1 mg UD PRN SQ 05/21/17 23:00 06/20/17 22:59 Aspirin (Ecotrin Tab) 81 mg QAM PO 05/22/17 08:00 06/21/17 07:59 05/25/17 08:32 81 MG Atorvastatin Calcium (Lipitor Tab) 80 mg DAILY PO 05/22/17 08:00 06/21/17 07:59 05/25/17 08:32 80 MG Hydrocortisone (Cortef Tab) 20 mg QAM PO 05/22/17 08:00 06/21/17 08:59 05/25/17 08:32 20 MG Ranitidine HCl (zANTac TAB) 150 mg BID PO 05/22/17 08:00 06/21/17 08:59 05/25/17 08:31 150 MG Vancomycin HCl (Vancomycin Oral Soln) 125 mg Taper TID PO 05/22/17 09:00 06/17/17 07:59 05/25/17 08:47 125 MG Cholestyramine Resin (Questran Powder Light) 4 gm DAILY@2300 PO 05/23/17 23:00 06/22/17 22:59 05/24/17 21:29 4 GM Miscellaneous Information (Order Awaiting Action) 1 ea QS N/A 05/22/17 08:00 06/21/17 07:59 Lactobacillus Acidophilus (Floranex Tab) 4 tab DAILY PO 05/22/17 08:00 06/21/17 07:59 05/25/17 08:31 4 TAB Mirtazapine (Remeron Tab) 30 mg HS PRN PO 05/21/17 23:00 06/20/17 22:59 Ondansetron HCl (Zofran Inj) 4 mg Q6H PRN IV 05/21/17 23:00 06/20/17 22:59 05/25/17 08:47 4 MG Promethazine HCl 12.5 mg/Sodium Chloride 50.5 ml @ 204 mls/hr Q6H PRN IV 05/21/17 23:00 06/20/17 22:59 Nicotine (Nicoderm Cq 7 Mg Patch) 1 patch QAM TD 05/22/17 08:00 06/21/17 08:59 05/23/17 08:42 1 PATCH Miscellaneous (Remove Nicoderm Patch) 1 ea HS N/A 05/22/17 21:00 06/21/17 20:59 05/23/17 22:04 1 EA Heparin Sodium (Porcine) (Heparin Sq 5000 Unit/0.5ml) 5,000 unit Q8 SQ 05/22/17 06:00 06/21/17 05:59 05/25/17 05:46 5,000 UNIT Lorazepam 0.5 mg/ Syringe 1 ml @ 1 mls/min Q4H PRN IV 05/22/17 00:30 06/21/17 00:29 05/25/17 05:49 1 MLS/MIN Hydrocortisone (Cortef Tab) 10 mg DAILY@1800 PO 05/22/17 18:00 06/21/17 17:59 05/24/17 18:11 10 MG Diphenoxylate HCl/ Atropine (Lomotil Tab) 1 tab TID PO 05/22/17 08:00 06/21/17 07:59 05/25/17 08:32 1 TAB Raspberry (Raspberry Syrup 5ml Cup) 5 ml Taper TID PO 05/22/17 08:00 06/17/17 07:59 05/25/17 08:47 5 ML Tiotropium [place] (Spiriva Handihaler Inhaler) 1 puff DAILY INH 05/23/17 08:00 06/22/17 07:59 05/25/17 08:30 1 PUFF Hydromorphone HCl (Dilaudid Inj) 0.5 mg Q3H PRN IV 05/22/17 18:00 06/04/17 22:59 05/25/17 04:04 0.5 MG Octreotide Acetate 50 mcg/ Syringe 5 ml @ 3 mls/min Q8@0200,1000,1800 IV 05/22/17 18:00 06/21/17 17:59 05/25/17 09:53 3 MLS/MIN Miscellaneous Information (Consult Glycemic Management Pharmacy) 1 ea UD PRN N/A 05/23/17 07:51 06/22/17 07:50 Lisinopril (Zestril Tab) 5 mg QAM PO 05/24/17 08:00 06/23/17 07:59 05/25/17 08:32 5 MG Isosorbide Mononitrate (Imdur Ext Rel Tab) 60 mg QAM PO 05/25/17 08:00 06/24/17 07:59 05/25/17 08:31 60 MG Fluoxetine HCl (Prozac Cap) 30 mg QAM PO 05/25/17 08:00 06/21/17 08:59 05/25/17 08:33 30 MG Oxycodone/ Acetaminophen (Percocet 7.5-325MG Tab) 1 tab Q6H PRN PO 05/24/17 17:15 06/07/17 17:14 05/25/17 08:52 1 TAB Insulin Glargine (Lantus Solostar Pen) 7 units BID SC 05/25/17 08:15 06/24/17 08:14 05/25/17 08:51 7 UNITS Review of Systems Denies any constitutional, cardiac, pulmonary, neurological, GI, , extremity, endocrine, neuro, ENT, dermatological, or musculoskeletal complaints other than stated in HPI Physical Exam Height & Weight: Height 5 feet, 10.00 inches. Weight 71.500 (Kilograms) 157 (Pounds) Last Vital Signs Documentation Date Time Temp Pulse Resp B/P (MAP) Pulse Ox O2 Delivery O2 Flow Rate FiO2 05/25/17 08:00 100 Room Air 05/25/17 07:27 36.7 63 18 149/82 (104) Exam: GENERAL: Mr. Urbina is a 62 y/o white male that appears his stated age. Speech and cognition is intact. Flat affect. Does not appear to be in any acute distress. HEAD: Normocephalic; atraumatic. EYES: Pupils are round, equal, and reactive to light; EOM intact. ENT: No external ear discharge or lesions. No rhinorrhea or epistaxis. No mucosal lesions. CHEST: Regular chest respiration and excursion. ABDOMEN: Active bowel sounds throughout; tenderness to palpation of the left lower quadrant of the abdomen. No myoneural trigger points noted. No peritoneal signs. No CVA tenderness bilaterally. EXTREMITIES: Full ROM and +5 strength of upper and lower extremities. No TTP. Distal sensation and pulses intact bilaterally. NEURO: CN II-XII grossly intact with no focal deficits noted. SKIN: No lesions, erythema, or rashes noted. Laboratory Laboratory Results (Last CBC): 05/25/17 06:18 Red Blood Count 3.99 L, Mean Corpuscular Volume 90.2, Mean Corpuscular Hemoglobin 29.1, Mean Corpuscular Hemoglobin Concent 32.2, Mean Platelet Volume 11.2 H, Neutrophils (%) (Auto) 60.4, Lymphocytes (%) (Auto) 26.7, Monocytes (%) (Auto) 10.3, Eosinophils (%) (Auto) 2.1, Basophils (%) (Auto) 0.2, Neutrophils # (Auto) 5.48, Lymphocytes # (Auto) 2.42, Monocytes # (Auto) 0.93 H, Eosinophils # (Auto) 0.19, Basophils # (Auto) 0.[address] Findings 05/21/[address]: 1. No bowel wall thickening. Mildly fluid-filled colon which may reflect a diarrheal state. 2. Normal appendix. Assessment 1. Abdominal pain 2. Diabetes Mellitus 3. Recent C. Diff Recommendations Patient does have Percocet 7.5/325mg ordered for pain. I have emphasized the importance of tolerating PO medication as opposed to relying on IV narcotics as this would further extend his discharge to home. He is understanding and will try a Percocet today. I would keep IV Dilaudid ordered for breakthrough pain but decrease the frequency. [employer] Voice Recognition This chart was completed in part utilizing [employer] Voice Recognition Software. Random word insertions, pronoun errors, and incomplete sentences are an occasional consequence of this system due to software limitations and ambient noise. Any questions or concerns about the content, text or information contained within the body of this dictation should be directly addressed to the provider for clarification.
--- NOTE | 2017-05-25 11:54 | Gastroenterology Progress Note ---
Progress Note Date of Service: May 25, 2017 Subjective Pt evaluation today including: conversation w/ patient, physical exam, chart review, lab review, review of studies, review of inpatient medication list Pt still c/o 18+ diarrhea yesterday. Also having LLQ cramping which he says "it' s always been the same". Denies any n/v. Review of Systems Constitutional: No fever, No chills Respiratory: No cough, No shortness of breath Cardiac: No chest pain Abdomen: + pain, + diarrhea, No nausea, No vomiting Medications Current Inpatient Medications Medications (Trade) Dose Ordered Sig/Tisha Route Start Time Stop Time Status Last Admin Dose Admin Miscellaneous (Iv Fluids Completed) 1 ea PRN PRN N/A 05/21/17 22:30 05/21/18 22:29 Acetaminophen (Tylenol Tab) 650 mg Q4H PRN PO 05/21/17 23:00 06/20/17 22:59 Insulin Aspart (novoLOG ASPART) SLIDING SCALE If C... ACHS SC 05/22/17 06:30 06/21/17 06:59 05/25/17 08:51 7 UNITS Glucose (Glucose 40% Gel) 15-30 GRAMS 15 GRAMS... UD PRN PO 05/21/17 23:00 06/20/17 22:59 Glucose (Glucose Chew Tab) 4-8 Tablets 4 Tabl... UD PRN PO 05/21/17 23:00 06/20/17 22:59 Dextrose (Dextrose 50% 50ML Syringe) 25-50ML OF 50% DW IV FOR... UD PRN IV 05/21/17 23:00 06/20/17 22:59 Glucagon (Glucagon Inj) 1 mg UD PRN SQ 05/21/17 23:00 06/20/17 22:59 Aspirin (Ecotrin Tab) 81 mg QAM PO 05/22/17 08:00 06/21/17 07:59 05/25/17 08:32 81 MG Atorvastatin Calcium (Lipitor Tab) 80 mg DAILY PO 05/22/17 08:00 06/21/17 07:59 05/25/17 08:32 80 MG Hydrocortisone (Cortef Tab) 20 mg QAM PO 05/22/17 08:00 06/21/17 08:59 05/25/17 08:32 20 MG Ranitidine HCl (zANTac TAB) 150 mg BID PO 05/22/17 08:00 06/21/17 08:59 05/25/17 08:31 150 MG Vancomycin HCl (Vancomycin Oral Soln) 125 mg Taper TID PO 05/22/17 09:00 06/17/17 07:59 05/25/17 08:47 125 MG Cholestyramine Resin (Questran Powder Light) 4 gm DAILY@2300 PO 05/23/17 23:00 06/22/17 22:59 05/24/17 21:29 4 GM Miscellaneous Information (Order Awaiting Action) 1 ea QS N/A 05/22/17 08:00 06/21/17 07:59 Lactobacillus Acidophilus (Floranex Tab) 4 tab DAILY PO 05/22/17 08:00 06/21/17 07:59 05/25/17 08:31 4 TAB Mirtazapine (Remeron Tab) 30 mg HS PRN PO 05/21/17 23:00 06/20/17 22:59 Ondansetron HCl (Zofran Inj) 4 mg Q6H PRN IV 05/21/17 23:00 06/20/17 22:59 05/25/17 08:47 4 MG Promethazine HCl 12.5 mg/Sodium Chloride 50.5 ml @ 204 mls/hr Q6H PRN IV 05/21/17 23:00 06/20/17 22:59 Nicotine (Nicoderm Cq 7 Mg Patch) 1 patch QAM TD 05/22/17 08:00 06/21/17 08:59 05/23/17 08:42 1 PATCH Miscellaneous (Remove Nicoderm Patch) 1 ea HS N/A 05/22/17 21:00 06/21/17 20:59 05/23/17 22:04 1 EA Heparin Sodium (Porcine) (Heparin Sq 5000 Unit/0.5ml) 5,000 unit Q8 SQ 05/22/17 06:00 06/21/17 05:59 05/25/17 05:46 5,000 UNIT Lorazepam 0.5 mg/ Syringe 1 ml @ 1 mls/min Q4H PRN IV 05/22/17 00:30 06/21/17 00:29 05/25/17 05:49 1 MLS/MIN Hydrocortisone (Cortef Tab) 10 mg DAILY@1800 PO 05/22/17 18:00 06/21/17 17:59 05/24/17 18:11 10 MG Diphenoxylate HCl/ Atropine (Lomotil Tab) 1 tab TID PO 05/22/17 08:00 06/21/17 07:59 05/25/17 08:32 1 TAB Raspberry (Raspberry Syrup 5ml Cup) 5 ml Taper TID PO 05/22/17 08:00 06/17/17 07:59 05/25/17 08:47 5 ML Tiotropium [place] (Spiriva Handihaler Inhaler) 1 puff DAILY INH 05/23/17 08:00 06/22/17 07:59 05/25/17 08:30 1 PUFF Hydromorphone HCl (Dilaudid Inj) 0.5 mg Q3H PRN IV 05/22/17 18:00 06/04/17 22:59 05/25/17 04:04 0.5 MG Octreotide Acetate 50 mcg/ Syringe 5 ml @ 3 mls/min Q8@0200,1000,1800 IV 05/22/17 18:00 06/21/17 17:59 05/25/17 09:53 3 MLS/MIN Miscellaneous Information (Consult Glycemic Management Pharmacy) 1 ea UD PRN N/A 05/23/17 07:51 06/22/17 07:50 Lisinopril (Zestril Tab) 5 mg QAM PO 05/24/17 08:00 06/23/17 07:59 05/25/17 08:32 5 MG Isosorbide Mononitrate (Imdur Ext Rel Tab) 60 mg QAM PO 05/25/17 08:00 06/24/17 07:59 05/25/17 08:31 60 MG Fluoxetine HCl (Prozac Cap) 30 mg QAM PO 05/25/17 08:00 06/21/17 08:59 05/25/17 08:33 30 MG Oxycodone/ Acetaminophen (Percocet 7.5-325MG Tab) 1 tab Q6H PRN PO 05/24/17 17:15 06/07/17 17:14 05/25/17 08:52 1 TAB Insulin Glargine (Lantus Solostar Pen) units BID SC 05/25/17 08:15 06/24/17 08:14 05/25/17 08:51 7 UNITS Objective Vital Signs Date Time Temp Pulse Resp B/P (MAP) Pulse Ox O2 Delivery O2 Flow Rate FiO2 05/25/17 08:00 100 Room Air 05/25/17 07:27 36.7 63 18 149/82 (104) 100 05/25/17 00:00 Room Air 05/24/17 23:56 36.6 55 20 167/87 (113) 99 Room Air 05/24/17 20:00 Room Air 05/24/17 16:00 Room Air 05/24/17 15:54 36.8 57 16 131/71 (91) 98 Room Air Physical Exam General Appearance: WD/WN, no apparent distress Eyes: normal inspection, PERRL, EOMI Neck: supple, no JVD, trachea midline Respiratory/Chest: lungs clear, normal breath sounds, no respiratory distress, no accessory muscle use Cardiovascular: regular rate, rhythm, no gallop, no murmur Abdomen: normal bowel sounds, soft, + tenderness (LLQ ) Extremities: normal inspection, no pedal edema, no calf tenderness Neurologic/Psych: alert, normal mood/affect, oriented x 3 Skin: normal color, no jaundice, no rash Laboratory Results Last 24 Hours Test 05/24/17 16:44 05/24/17 20:21 05/25/17 06:18 05/25/17 07:47 Bedside Glucose 163 mg/dl 136 mg/dl 197 mg/dl White Blood Count 9.07 K/uL Red Blood Count 3.99 M/uL Hemoglobin 11.6 g/dL Hematocrit 36.0 % Mean Corpuscular Volume 90.2 fL Mean Corpuscular Hemoglobin 29.1 pg Mean Corpuscular Hemoglobin Concent 32.2 g/dl Platelet Count 199 K/uL Mean Platelet Volume 11.2 fL Neutrophils (%) (Auto) 60.4 % Lymphocytes (%) (Auto) 26.7 % Monocytes (%) (Auto) 10.3 % Eosinophils (%) (Auto) 2.1 % Basophils (%) (Auto) 0.2 % Neutrophils # (Auto) 5.48 K/uL Lymphocytes # (Auto) 2.42 K/uL Monocytes # (Auto) 0.93 K/uL Eosinophils # (Auto) 0.19 K/uL Basophils # (Auto) 0.02 K/uL RDW Standard Deviation 50.6 fL RDW Coefficient of Variation 15.5 % Immature Granulocyte % (Auto) 0.3 % Immature Granulocyte # (Auto) 0.03 K/uL Sodium Level 143 mmol/L Potassium Level 3.5 mmol/L Chloride Level 112 mmol/L Carbon Dioxide Level 25 mmol/L Anion Gap 6.0 mmol/L Blood Urea Nitrogen 16 mg/dl Creatinine 1.50 mg/dl Est Creatinine Clear Calc Drug Dose 51.6 ml/min Estimated GFR () 57.0 Estimated GFR (Non- 49.2 BUN/Creatinine Ratio 10.4 Random Glucose 148 mg/dl Calcium Level 8.7 mg/dl Assessment and Plan Patient is a 62 year old male with acute on chronic diarrhea with hx of collagenous colitis and ulcerative colitis, Cdiff positive on 05/02 but since then repeat stool study negative. He had been on Questran, Lomotil, Vancomycin taper, Xifaxan, back on Octreotide as well. Entecort avoided given hx of correction steroid use, OP. Still ongoing diarrhea per pt's report. Stool collection for amt and fecal fat ongoing. - Continue current diet - Add Clonidine 0.05mg BID to current regimen of Questran, Vancomycin taper, Lomotil, - Complete stool collection. - Will follow Late entry: Patient was seen and examined with Pema Gama on 05/25. Her note reflects our findings and plan.
[2017-05-25 12:37] VITALS: Ht 177.8 cm; Wt 71.5 kg
[2017-05-25 15:47] VITALS: BP 130/81; PULSE 73; TEMP 36.5; O2SAT 98
[2017-05-25 16:00] VITALS: O2SAT 98
[2017-05-25] MEDS: NSS + 20MEQ KCL 1000ML 1,000 ML IV SCH (18:32)
[2017-05-25] MEDS: CLONAZEPAM 0.5 MG TAB PO PRN (18:32)
[2017-05-25 20:38] VITALS: BP 135/82; PULSE 73
[2017-05-25] MEDS: CLONIDINE HCL 0.1 MG TAB PO SCH (20:40)
--- NOTE | 2017-05-25 23:02 | Progress Note ---
Medicine Progress Note Date & Time of Visit: May 25, 2017 at 14:33. Subjective 62 yoM with chronic diarrhea and recent c-diff in setting of UC and GI issues for 15 years presents with worsened non-bloody diarrhea after discharge two weeks ago. -abdominal pain is present -p[t is pessmistic -he is tolerating PO -18+BMs overnight -no vomiting I spoke with his , Bailee, by phone tonight and updated her on the situation. We spoke on the phone for roughly 20 minutes. Objective Last 8 Hrs Date Time Temp Pulse Resp B/P (MAP) Pulse Ox O2 Delivery O2 Flow Rate FiO2 05/25/17 08:00 100 Room Air 05/25/17 07:27 36.7 63 18 149/82 (104) 100 Physical Exam: GEN: WNWD, alert and appropriate, NAD HEENT: NC/AT, pupils are equal and round bilaterally, normal sclerae/ conjunctivae CARDIO: reg rate, S1/2 heard without m/g/r LUNGS: CTA bilaterally, no crackles, rales or wheezes, good diaphragmatic excursion ABD: soft, generalized TTP all throughout abdomen, pt is now jumping just prior to me touching his abdomen, non-distended, +BS EXTREMITY: wwp N/M: no gross focal deficits. SKIN: warm and dry Laboratory Results: 05/25/17 06:18 Red Blood Count 3.99, Mean Corpuscular Volume 90.2, Mean Corpuscular Hemoglobin 29.1, Mean Corpuscular Hemoglobin Concent 32.2, Mean Platelet Volume 11.2, Neutrophils (%) (Auto) 60.4, Lymphocytes (%) (Auto) 26.7, Monocytes (%) (Auto) 10.3, Eosinophils (%) (Auto) 2.1, Basophils (%) (Auto) 0.2, Neutrophils # (Auto ) 5.48, Lymphocytes # (Auto) 2.42, Monocytes # (Auto) 0.93, Eosinophils # (Auto ) 0.19, Basophils # (Auto) 0.02 05/25/17 06:18 Test 05/21/17 18:10 05/21/17 19:10 05/22/17 04:35 05/23/17 06:38 Total Bilirubin 0.5 mg/dl (0.2-1) Direct Bilirubin 0.2 mg/dl (0-0.2) Aspartate Amino Transf (AST/SGOT) 16 U/L (15-37) Alanine Aminotransferase (ALT/SGPT) 30 U/L (12-78) Alkaline Phosphatase 109 U/L (45-117) Total Protein 7.4 gm/dl (6.4-8.2) Albumin 3.5 gm/dl (3.4-5.0) Lipase 246 U/L (73-393) Lactic Acid Level 1.5 mmol/L (0.4-2.0) Urine Color YELLOW Urine Appearance CLEAR (CLEAR) Urine pH 5.0 (4.5-7.5) Urine Specific [place] 1.020 (1.000-1.030) Urine Protein TRACE (NEG) Urine Glucose (UA) NEG (NEG) Urine Ketones NEG (NEG) Urine Occult Blood NEG (NEG) Urine Nitrite NEG (NEG) Urine Bilirubin NEG (NEG) Urine Urobilinogen NEG (NEG) Urine Leukocyte Esterase SMALL (NEG) Urine WBC (Auto) 10-30 /hpf (0-5) Urine RBC (Auto) 0-4 /hpf (0-4) Urine Hyaline Casts (Auto) >30 /lpf (0-5) Urine Epithelial Cells (Auto) 10-20 /lpf (0-5) Urine Bacteria (Auto) 1+ (NEG) Urine Pathogenic Casts 10-20 GRANULAR CASTS /lpf (0) Phosphorus Level 2.4 mg/dl (2.5-4.9) Test 05/24/17 06:30 05/25/17 06:18 05/25/17 20:06 05/25/17 20:53 Estimated Average Glucose 171 mg/dl Hemoglobin A1c 7.6 % (4.5-5.6) Magnesium Level 1.9 mg/dl (1.8-2.4) White Blood Count 9.07 K/uL (4.8-10.8) Red Blood Count 3.99 M/uL (4.7-6.1) Hemoglobin 11.6 g/dL (14.0-18.0) Hematocrit 36.0 % (42-52) Mean Corpuscular Volume 90.2 fL (80-100) Mean Corpuscular Hemoglobin 29.1 pg (25-34) Mean Corpuscular Hemoglobin Concent 32.2 g/dl (32-36) Platelet Count 199 K/uL (130-400) Mean Platelet Volume 11.2 fL (7.4-10.4) Neutrophils (%) (Auto) 60.4 % Lymphocytes (%) (Auto) 26.7 % Monocytes (%) (Auto) 10.3 % Eosinophils (%) (Auto) 2.1 % Basophils (%) (Auto) 0.2 % Neutrophils # (Auto) 5.48 K/uL (1.4-6.5) Lymphocytes # (Auto) 2.42 K/uL (1.2-3.4) Monocytes # (Auto) 0.93 K/uL (0.11-0.59) Eosinophils # (Auto) 0.19 K/uL (0-0.5) Basophils # (Auto) 0.02 K/uL (0-0.2) RDW Standard Deviation 50.6 fL (36.4-46.3) RDW Coefficient of Variation 15.5 % (11.5-14.5) Immature Granulocyte % (Auto) 0.3 % Immature Granulocyte # (Auto) 0.03 K/uL (0.00-0.02) Anion Gap 6.0 mmol/L (3-11) Est Creatinine Clear Calc Drug Dose 51.6 ml/min Estimated GFR () 57.0 Estimated GFR (Non- 49.2 BUN/Creatinine Ratio 10.4 (10-20) Calcium Level 8.7 mg/dl (8.5-10.1) Bedside Glucose 98 mg/dl (70-99) Date/Time Source Procedure Growth Status 05/22/17 15:46 Stool C.difficile Toxin B Gene (PCR) - Final No C. difficile toxin B gene detected Complete 05/22/17 04:35 Urine , Clean Catch Urine Culture - Final NO GROWTH - LESS THAN 1,000 COLONIES/ML Complete Last 24 Hours Test 05/24/17 16:44 05/24/17 20:21 05/25/17 06:18 05/25/17 07:47 Bedside Glucose 163 mg/dl 136 mg/dl 197 mg/dl White Blood Count 9.07 K/uL Red Blood Count 3.99 M/uL Hemoglobin 11.6 g/dL Hematocrit 36.0 % Mean Corpuscular Volume 90.2 fL Mean Corpuscular Hemoglobin 29.1 pg Mean Corpuscular Hemoglobin Concent 32.2 g/dl Platelet Count 199 K/uL Mean Platelet Volume 11.2 fL Neutrophils (%) (Auto) 60.4 % Lymphocytes (%) (Auto) 26.7 % Monocytes (%) (Auto) 10.3 % Eosinophils (%) (Auto) 2.1 % Basophils (%) (Auto) 0.2 % Neutrophils # (Auto) 5.48 K/uL Lymphocytes # (Auto) 2.42 K/uL Monocytes # (Auto) 0.93 K/uL Eosinophils # (Auto) 0.19 K/uL Basophils # (Auto) 0.02 K/uL RDW Standard Deviation 50.6 fL RDW Coefficient of Variation 15.5 % Immature Granulocyte % (Auto) 0.3 % Immature Granulocyte # (Auto) 0.03 K/uL Sodium Level 143 mmol/L Potassium Level 3.5 mmol/L Chloride Level 112 mmol/L Carbon Dioxide Level 25 mmol/L Anion Gap 6.0 mmol/L Blood Urea Nitrogen 16 mg/dl Creatinine 1.50 mg/dl Est Creatinine Clear Calc Drug Dose 51.6 ml/min Estimated GFR () 57.0 Estimated GFR (Non- 49.2 BUN/Creatinine Ratio 10.4 Random Glucose 148 mg/dl Calcium Level 8.7 mg/dl Test 05/25/17 11:45 Bedside Glucose 334 mg/dl Assessment & Plan 62 yoM with chronic diarrhea and recent c-diff in setting of UC and GI issues for 15 years presents with worsened non-bloody diarrhea after discharge two weeks ago. 1. Abdominal pain/Diarrhea-recent c-diff infection and has remained on vanc PO with extension of taper per GI outpatient. Repeat c-diff as outpatient and inpatient were negative. Cont contact precautions with persistent diarrhea, which is worse overnight. CT on admission revealed no acute issues and consistent with diarrheal state. Cholestyramine per GI recs, Octreotide and Lomotil started 05/22 with "improvement" in stool frequency with only 1-2 BMs the following day and these were partially formed per nurse. Somehow the collection hat was removed overnight, and then there were reports of 8+ BMs today consistent with worsening diarrhea. GI evaluated and agrees with 24 hour stool collection for fecal fat and volume. Pt and nursing are aware of this order. Continuing with Dilaudid IV as patient refuses anything else for pain. Will add some percocet PRN as he did say these helped in the past when he was at home and dilaudid was not available. 05/25-worsened diarrhea again with patient reporting 18+ bowel movements despite Lomotil and Octreotide. Clonidine was added per GI team. He continues on Vanc. 2. Depression/Anxiety-Prozac 3. Bradycardia-Metoprolol stopped with improvement in HR. Cont to monitor. 4. Adrenal insufficiency-chronic, cont Cortef 5. Hypotension--resolved, and restarted lisinopril 6. UC-takes hydrocortisone regularly to control flares and in setting of chronic adrenal insufficiency. Recent colonoscopy was 02/20/17 while he was hospitalized for a UC flare. Cont per GI. 7. CAD-stable, no active ACS or concerning symptoms. Cont medical management with ASA, statin, Lopressor, Imdur. TTE normal during last hospitalization and Cardiology evaluated him. 8. DMII: Lantus/ISS per pharmacy recs. Sugar is controlled. 9. COPD-not oxygen-dependent and is stable without wheezing on exam. Cont Spiriva and Nicoderm patch to control cravings to smoke. 10. Tobacco abuse-Nicotine replacement given. 11. Iron-deficiency anemia-holding outpatient iron supplementation now. 12. CRISTIAN 2/2 acute illness.-creat was 1.3 yesterday and with worsened diarrhea and creat 1.5 today, will add back more IVF now. DVT proph: Heparin Full code Dispo-uncertain, but should be going home when diarrhea and pain improve. [facility] Consultants: GI, pain, psych Current Inpatient Medications: Current Inpatient Medications Medications (Trade) Dose Ordered Sig/Tisha Route Start Time Stop Time Status Last Admin Dose Admin Miscellaneous (Iv Fluids Completed) 1 ea PRN PRN N/A 05/21/17 22:30 05/21/18 22:29 Acetaminophen (Tylenol Tab) 650 mg Q4H PRN PO 05/21/17 23:00 06/20/17 22:59 Insulin Aspart (novoLOG ASPART) SLIDING SCALE If C... ACHS SC 05/22/17 06:30 06/21/17 06:59 05/25/17 13:07 12 UNITS Glucose (Glucose 40% Gel) 15-30 GRAMS 15 GRAMS... UD PRN PO 05/21/17 23:00 06/20/17 22:59 Glucose (Glucose Chew Tab) 4-8 Tablets 4 Tabl... UD PRN PO 05/21/17 23:00 06/20/17 22:59 Dextrose (Dextrose 50% 50ML Syringe) 25-50ML OF 50% DW IV FOR... UD PRN IV 05/21/17 23:00 06/20/17 22:59 Glucagon (Glucagon Inj) 1 mg UD PRN SQ 05/21/17 23:00 06/20/17 22:59 Aspirin (Ecotrin Tab) 81 mg QAM PO 05/22/17 08:00 06/21/17 07:59 05/25/17 08:32 81 MG Atorvastatin Calcium (Lipitor Tab) 80 mg DAILY PO 05/22/17 08:00 06/21/17 07:59 05/25/17 08:32 80 MG Hydrocortisone (Cortef Tab) 20 mg QAM PO 05/22/17 08:00 06/21/17 08:59 05/25/17 08:32 20 MG Ranitidine HCl (zANTac TAB) 150 mg BID PO 05/22/17 08:00 06/21/17 08:59 05/25/17 08:31 150 MG Vancomycin HCl (Vancomycin Oral Soln) 125 mg Taper TID PO 05/22/17 09:00 06/17/17 07:59 05/25/17 14:20 125 MG Cholestyramine Resin (Questran Powder Light) 4 gm DAILY@2300 PO 05/23/17 23:00 06/22/17 22:59 05/24/17 21:29 4 GM Miscellaneous Information (Order Awaiting Action) 1 ea QS N/A 05/22/17 08:00 06/21/17 07:59 Lactobacillus Acidophilus (Floranex Tab) 4 tab DAILY PO 05/22/17 08:00 06/21/17 07:59 05/25/17 08:31 4 TAB Mirtazapine (Remeron Tab) 30 mg HS PRN PO 05/21/17 23:00 06/20/17 22:59 Ondansetron HCl (Zofran Inj) 4 mg Q6H PRN IV 05/21/17 23:00 06/20/17 22:59 05/25/17 08:47 4 MG Promethazine HCl 12.5 mg/Sodium Chloride 50.5 ml @ 204 mls/hr Q6H PRN IV 05/21/17 23:00 06/20/17 22:59 Nicotine (Nicoderm Cq 7 Mg Patch) 1 patch QAM TD 05/22/17 08:00 06/21/17 08:59 05/23/17 08:42 1 PATCH Miscellaneous (Remove Nicoderm Patch) 1 ea HS N/A 05/22/17 21:00 06/21/17 20:59 05/23/17 22:04 1 EA Heparin Sodium (Porcine) (Heparin Sq 5000 Unit/0.5ml) 5,000 unit Q8 SQ 05/22/17 06:00 06/21/17 05:59 05/25/17 14:23 5,000 UNIT Lorazepam 0.5 mg/ Syringe 1 ml @ 1 mls/min Q4H PRN IV 05/22/17 00:30 06/21/17 00:29 05/25/17 11:52 1 MLS/MIN Hydrocortisone (Cortef Tab) 10 mg DAILY@1800 PO 05/22/17 18:00 06/21/17 17:59 05/24/17 18:11 10 MG Diphenoxylate HCl/ Atropine (Lomotil Tab) 1 tab TID PO 05/22/17 08:00 06/21/17 07:59 05/25/17 14:20 1 TAB Raspberry (Raspberry Syrup 5ml Cup) 5 ml Taper TID PO 05/22/17 08:00 06/17/17 07:59 05/25/17 14:20 5 ML Tiotropium [place] (Spiriva Handihaler Inhaler) 1 puff DAILY INH 05/23/17 08:00 06/22/17 07:59 05/25/17 08:30 1 PUFF Hydromorphone HCl (Dilaudid Inj) 0.5 mg Q3H PRN IV 05/22/17 18:00 06/04/17 22:59 05/25/17 04:04 0.5 MG Octreotide Acetate 50 mcg/ Syringe 5 ml @ 3 mls/min Q8@0200,1000,1800 IV 05/22/17 18:00 06/21/17 17:59 05/25/17 09:53 3 MLS/MIN Miscellaneous Information (Consult Glycemic Management Pharmacy) 1 ea UD PRN N/A 05/23/17 07:51 06/22/17 07:50 Lisinopril (Zestril Tab) 5 mg QAM PO 05/24/17 08:00 06/23/17 07:59 05/25/17 08:32 5 MG Isosorbide Mononitrate (Imdur Ext Rel Tab) 60 mg QAM PO 05/25/17 08:00 06/24/17 07:59 05/25/17 08:31 60 MG Fluoxetine HCl (Prozac Cap) 30 mg QAM PO 05/25/17 08:00 06/21/17 08:59 05/25/17 08:33 30 MG Oxycodone/ Acetaminophen (Percocet 7.5-325MG Tab) 1 tab Q6H PRN PO 05/24/17 17:15 06/07/17 17:14 05/25/17 14:21 1 TAB Insulin Glargine (Lantus Solostar Pen) 7 units BID SC 05/25/17 08:15 06/24/17 08:14 05/25/17 08:51 7 UNITS Clonidine HCl (Catapres Tab) 0.05 mg BID PO 05/25/17 20:00 06/24/17 19:59
[2017-05-25] MEDS: CHOLESTYRAMINE LIGHT 4 GM PKT PO SCH (23:34)
[2017-05-25 23:56] VITALS: BP 106/82; PULSE 72; TEMP 36.5; O2SAT 99
[2017-05-26] MEDS: NSS + 20MEQ KCL 1000ML 1,000 ML IV SCH ×3 (01:45→18:25)
[2017-05-26] MEDS: OCTREOTIDE ACETATE IV SCH ×3 (01:45→18:35)
[2017-05-26] MEDS: HEPARIN SOD 5000 UNIT/0.5 ML CARP SQ SCH ×3 (06:24→21:00)
[2017-05-26 07:13] VITALS: BP 136/73; PULSE 55; TEMP 36.7; O2SAT 99
[2017-05-26] MEDS: TIOTROPIUM BROMIDE 5 PUFF/90 MCG INH INH SCH (07:45)
[2017-05-26] MEDS: ONDANSETRON INJ 2 MG/ML 2 ML VIAL IV PRN (07:45)
[2017-05-26] MEDS: CLONAZEPAM 0.5 MG TAB PO PRN (07:46)
[2017-05-26] MEDS: OXYCODONE/ACETAMINOPHEN 7.5-325 TAB PO PRN ×3 (07:46→19:40)
[2017-05-26] MEDS: LISINOPRIL 5 MG TAB PO SCH (07:49)
[2017-05-26] MEDS: HYDROCORTISONE 10 MG TAB PO SCH ×2 (07:49→18:28)
[2017-05-26] MEDS: DIPHENOXYLATE/ATROPINE 2.5/0.025MG TAB PO SCH ×3 (07:49→19:42)
[2017-05-26] MEDS: CLONIDINE HCL 0.1 MG TAB PO SCH ×2 (07:49→19:43)
[2017-05-26] MEDS: FLUOXETINE HCL 10 MG CAP PO SCH (07:50)
[2017-05-26 08:00] VITALS: O2SAT 99
[2017-05-26] MEDS: NICOTINE 7 MG/24 HR TDSY TD SCH (08:00)
[2017-05-26 08:01] LABS: HEMATOCRIT 36.9 % (42-52); MEAN CELL VOLUME 90.4 fL (80-100); MEAN CORPUSCULAR HEMOGLOBIN 29.9 pg (25-34); MEAN CORPUSCULAR HGB CONC 33.1 g/dl (32-36); MEAN PLATELET VOLUME 10.5 fL (7.4-10.4); PLATELET COUNT 179 K/uL (130-400); RED BLOOD COUNT 4.08 M/uL (4.7-6.1); WHITE BLOOD COUNT 8.22 K/uL (4.8-10.8)
[2017-05-26] MEDS: ASPIRIN 81 MG ECTAB PO SCH (08:16)
[2017-05-26] MEDS: RANITIDINE HCL 150 MG TAB PO SCH ×2 (08:16→19:42)
[2017-05-26] MEDS: ATORVASTATIN 40 MG TAB PO SCH (08:17)
[2017-05-26] MEDS: ISOSORBIDE MONONITRATE 60 MG TABCR PO SCH (08:17)
[2017-05-26] MEDS: LACTOBACILLUS ACIDOPHILUS (FLORANEX) TAB PO SCH (08:17)
[2017-05-26 08:22] LABS: CALCIUM 8.9 mg/dl (8.5-10.1); CREATININE 1.3 mg/dl (0.60-1.40); MAGNESIUM 1.3 mg/dl (1.8-2.4); POTASSIUM 3.8 mmol/L (3.5-5.1)
[2017-05-26 08:23] LABS: PHOSPHORUS 2.5 mg/dl (2.5-4.9)
[2017-05-26] MEDS: INSULIN GLARGINE SOLOSTAR 100 UNITS/ML 3 ML PEN SC SCH ×2 (08:23→19:46)
[2017-05-26] MEDS: INSULIN ASPART 100 UNITS/ML 3 ML PEN SC SCH ×4 (08:24→21:00)
[2017-05-26] MEDS: RASPBERRY SYRUP 5 ML UDP PO SCH ×2 (08:25→19:41)
[2017-05-26] MEDS: VANCOMYCIN HCL 125 MG/2.5ML SOLN PO SCH ×2 (08:25→19:41)
[2017-05-26] MEDS: MAGNESIUM SULFATE 1GM / D5W 1 GM in PREMIXED IN D5W 100 ML IV SCH ×3 (09:22→11:21)
--- NOTE | 2017-05-26 09:39 | Gastroenterology Progress Note ---
Progress Note Date of Service: May 26, 2017 Subjective Pt evaluation today including: conversation w/ patient, physical exam Feels improved since adm, still having diarrhea, overall a bit frustrated but in relatively good spirits Medications Current Inpatient Medications Medications (Trade) Dose Ordered Sig/Tisha Route Start Time Stop Time Status Last Admin Dose Admin Miscellaneous (Iv Fluids Completed) 1 ea PRN PRN N/A 05/21/17 22:30 05/21/18 22:29 Acetaminophen (Tylenol Tab) 650 mg Q4H PRN PO 05/21/17 23:00 06/20/17 22:59 Insulin Aspart (novoLOG ASPART) SLIDING SCALE If C... ACHS SC 05/22/17 06:30 06/21/17 06:59 05/26/17 08:24 1 UNITS Glucose (Glucose 40% Gel) 15-30 GRAMS 15 GRAMS... UD PRN PO 05/21/17 23:00 06/20/17 22:59 Glucose (Glucose Chew Tab) 4-8 Tablets 4 Tabl... UD PRN PO 05/21/17 23:00 06/20/17 22:59 Dextrose (Dextrose 50% 50ML Syringe) 25-50ML OF 50% DW IV FOR... UD PRN IV 05/21/17 23:00 06/20/17 22:59 Glucagon (Glucagon Inj) 1 mg UD PRN SQ 05/21/17 23:00 06/20/17 22:59 Aspirin (Ecotrin Tab) 81 mg QAM PO 05/22/17 08:00 06/21/17 07:59 05/26/17 08:16 81 MG Atorvastatin Calcium (Lipitor Tab) 80 mg DAILY PO 05/22/17 08:00 06/21/17 07:59 05/26/17 08:17 80 MG Hydrocortisone (Cortef Tab) 20 mg QAM PO 05/22/17 08:00 06/21/17 08:59 05/26/17 07:49 20 MG Ranitidine HCl (zANTac TAB) 150 mg BID PO 05/22/17 08:00 06/21/17 08:59 05/26/17 08:16 150 MG Vancomycin HCl (Vancomycin Oral Soln) 125 mg Taper BID PO 05/22/17 09:00 06/17/17 07:59 05/26/17 08:25 125 MG Cholestyramine Resin (Questran Powder Light) 4 gm DAILY@2300 PO 05/23/17 23:00 06/22/17 22:59 05/25/17 23:34 4 GM Miscellaneous Information (Order Awaiting Action) 1 ea QS N/A 05/22/17 08:00 06/21/17 07:59 Lactobacillus Acidophilus (Floranex Tab) 4 tab DAILY PO 05/22/17 08:00 06/21/17 07:59 05/26/17 08:17 4 TAB Mirtazapine (Remeron Tab) 30 mg HS PRN PO 05/21/17 23:00 06/20/17 22:59 Ondansetron HCl (Zofran Inj) 4 mg Q6H PRN IV 05/21/17 23:00 06/20/17 22:59 05/26/17 07:45 4 MG Promethazine HCl 12.5 mg/Sodium Chloride 50.5 ml @ 204 mls/hr Q6H PRN IV 05/21/17 23:00 06/20/17 22:59 Nicotine (Nicoderm Cq 7 Mg Patch) 1 patch QAM TD 05/22/17 08:00 06/21/17 08:59 05/23/17 08:42 1 PATCH Miscellaneous (Remove Nicoderm Patch) 1 ea HS N/A 05/22/17 21:00 06/21/17 20:59 05/23/17 22:04 1 EA Heparin Sodium (Porcine) (Heparin Sq 5000 Unit/0.5ml) 5,000 unit Q8 SQ 05/22/17 06:00 06/21/17 05:59 05/26/17 06:24 5,000 UNIT Hydrocortisone (Cortef Tab) 10 mg DAILY@1800 PO 05/22/17 18:00 06/21/17 17:59 05/25/17 18:34 10 MG Diphenoxylate HCl/ Atropine (Lomotil Tab) 1 tab TID PO 05/22/17 08:00 06/21/17 07:59 05/26/17 07:49 1 TAB Raspberry (Raspberry Syrup 5ml Cup) 5 ml Taper BID PO 05/22/17 08:00 06/17/17 07:59 05/26/17 08:25 5 ML Tiotropium [place] (Spiriva Handihaler Inhaler) 1 puff DAILY INH 05/23/17 08:00 06/22/17 07:59 05/26/17 07:45 1 PUFF Hydromorphone HCl (Dilaudid Inj) 0.5 mg Q3H PRN IV 05/22/17 18:00 06/04/17 22:59 05/25/17 04:04 0.5 MG Octreotide Acetate 50 mcg/ Syringe 5 ml @ 3 mls/min Q8@0200,1000,1800 IV 05/22/17 18:00 06/21/17 17:59 05/26/17 09:30 3 MLS/MIN Miscellaneous Information (Consult Glycemic Management Pharmacy) 1 ea UD PRN N/A 05/23/17 07:51 06/22/17 07:50 Lisinopril (Zestril Tab) 5 mg QAM PO 05/24/17 08:00 06/23/17 07:59 05/26/17 07:49 5 MG Isosorbide Mononitrate (Imdur Ext Rel Tab) 60 mg QAM PO 05/25/17 08:00 06/24/17 07:59 05/26/17 08:17 60 MG Fluoxetine HCl (Prozac Cap) 30 mg QAM PO 05/25/17 08:00 06/21/17 08:59 05/26/17 07:50 30 MG Oxycodone/ Acetaminophen (Percocet 7.5-325MG Tab) 1 tab Q6H PRN PO 05/24/17 17:15 06/07/17 17:14 05/26/17 07:46 1 TAB Insulin Glargine (Lantus Solostar Pen) 7 units BID SC 05/25/17 08:15 06/24/17 08:14 05/26/17 08:23 7 UNITS Clonidine HCl (Catapres Tab) 0.05 mg BID PO 05/25/17 20:00 06/24/17 19:59 05/26/17 07:49 0.05 MG Potassium Chloride/Sodium Chloride 1,000 ml @ 125 mls/hr Q8H IV 05/25/17 17:30 06/24/17 17:29 05/26/17 09:30 125 MLS/HR Clonazepam (Klonopin Tab) 0.5 mg BID PRN PO 05/25/17 17:45 06/24/17 17:44 05/26/17 07:46 0.5 MG Magnesium Sulfate 1 gm/Prmx 100 ml @ 100 mls/hr Q1H IV 05/26/17 09:30 05/26/17 12:29 05/26/17 09:22 100 MLS/HR Objective Vital Signs Date Time Temp Pulse Resp B/P (MAP) Pulse Ox O2 Delivery O2 Flow Rate FiO2 05/26/17 07:13 36.7 55 20 136/73 (94) 99 Room Air 05/26/17 00:00 Room Air 05/25/17 23:56 36.5 72 18 106/82 (90) 99 Room Air 05/25/17 20:38 73 135/82 (99) 05/25/17 16:00 98 Room Air 05/25/17 15:47 36.5 73 18 130/81 (97) 98 Room Air Physical Exam General Appearance: WD/WN ENT: normal ENT inspection Respiratory/Chest: chest non-tender, lungs clear Cardiovascular: regular rate, rhythm, no edema Abdomen: normal bowel sounds, non tender Extremities: normal range of motion, non-tender Laboratory Results Last 24 Hours Test 05/25/17 11:45 05/25/17 16:34 05/25/17 20:06 05/25/17 20:53 Bedside Glucose 334 mg/dl 87 mg/dl 98 mg/dl Test 05/26/17 07:09 05/26/17 07:32 White Blood Count 8.22 K/uL Red Blood Count 4.08 M/uL Hemoglobin 12.2 g/dL Hematocrit 36.9 % Mean Corpuscular Volume 90.4 fL Mean Corpuscular Hemoglobin 29.9 pg Mean Corpuscular Hemoglobin Concent 33.1 g/dl RDW Standard Deviation 51.3 fL RDW Coefficient of Variation 15.6 % Platelet Count 179 K/uL Mean Platelet Volume 10.5 fL Sodium Level 144 mmol/L Potassium Level 3.8 mmol/L Chloride Level 115 mmol/L Carbon Dioxide Level 23 mmol/L Anion Gap 6.0 mmol/L Blood Urea Nitrogen 12 mg/dl Creatinine 1.30 mg/dl Est Creatinine Clear Calc Drug Dose 59.6 ml/min Estimated GFR () 67.8 Estimated GFR (Non- 58.5 BUN/Creatinine Ratio 9.0 Random Glucose 78 mg/dl Calcium Level 8.9 mg/dl Phosphorus Level 2.5 mg/dl Magnesium Level 1.3 mg/dl Bedside Glucose 83 mg/dl Assessment and Plan Patient is a 62 year old male with acute on chronic diarrhea with hx of refractory collagenous colitis and possibly overlap ulcerative colitis, Cdiff positive on 05/02 but since then repeat stool study negative. He had been on Questran, Lomotil, Vancomycin taper, Xifaxan, back on Octreotide as well. 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 Still ongoing diarrhea per pt's report. Stool collection for amt and fecal fat ongoing. - Continue current diet - Added Clonidine 0.05mg BID to current regimen of Questran, Vancomycin taper, Lomotil, may need to be titrated up, may need flex sig as inpt, consider tincture of opium if ok with Dr. Keith - Complete stool collection. - Will follow, but encouraged patience with additional medications. - Follow and replace electrolytes as needed
[2017-05-26 15:10] VITALS: BP 123/85; PULSE 60; TEMP 36.5; O2SAT 100
--- NOTE | 2017-05-26 15:46 | Progress Note ---
Internal Med Progress Note Date of Service: May 26, 2017. Provider Documentation: SUBJECTIVE: Patient continues to have diarrhea, but slightly improved Does have chronic abdominal pain No fever, chills, nausea, vomiting OBJECTIVE: Vital Signs-as noted below Exam: General-AAOX3, no distress Neck-Supple, No JVD Lungs-AEBE, no wheezing Heart-S1, S2 normal, no murmurs Abdomen-Soft, tenderness all over, no rigidity, BS present Extremities-No edema Lab data as noted below. ASSESSMENT & PLAN: 62 year old M with chronic diarrhea and recent c diff in setting of UC and GI issues for 15 years presents with worsened non-bloody diarrhea after discharge two weeks ago. ACUTE ON CHRONIC DIARRHEA- Have hx of ulcerative colitis , chronic diarrhea- multiple times on a daily basis. C diff was positive in 04/2017. Came back for worsening of diarrhea. -Continues to have diarrhea, slight improvement though. -On Lomotil, Questran, Octreotide Clonidine bid added on 05/25/17. -Work up- C diff negative outpatient and in hospital, CT - no acute findings, Stool- 24 hour for fecal fat and volume. -Appreciate GI inputs CRISTIAN, Pre renal- improving -Continue with IV HYPOMAGNESEMIA -Replace DEPRESSION/ANXIETY -Continue with Prozac BRADYCARDIA -Metoprolol discontinued CHRONIC ADRENAL INSUFFICIENCY -Continue with cortef ULCERATIVE COLITIS -Takes hydrocortisone regularly to control flares and in setting of chronic adrenal insufficiency. Recent colonoscopy was 02/20/17 while he was hospitalized for a UC flare. Cont per GI. HX OF CAD -stable, no active ACS or concerning symptoms. Cont medical management with ASA , statin, Lopressor, Imdur. TTE normal during last hospitalization and Cardiology evaluated him. DM II: Lantus/ISS per pharmacy recs. COPD-not oxygen-dependent and is stable without wheezing on exam. Cont Spiriva and Nicoderm patch to control cravings to smoke. TOBACCO ABUSE DISORDER-Nicotine replacement given. IRON DEFICIENCY ANEMIA DVT PROPHYLAXIS : Heparin SQ FULL CODE DISPOSITION Medical mx in progress Vital Signs: Date Time Temp Pulse Resp B/P (MAP) Pulse Ox O2 Delivery O2 Flow Rate FiO2 05/26/17 15:10 36.5 60 18 123/85 (98) 100 Room Air 05/26/17 08:00 99 Room Air 05/26/17 07:13 36.7 55 20 136/73 (94) 99 Room Air 05/26/17 00:00 Room Air 05/25/17 23:56 36.5 72 18 106/82 (90) 99 Room Air 05/25/17 20:38 73 135/82 (99) 05/25/17 16:00 98 Room Air 05/25/17 15:47 36.5 73 18 130/81 (97) 98 Room Air Lab Results: Results Past 24 Hours Test 05/25/17 16:34 05/25/17 20:06 05/25/17 20:53 05/26/17 07:09 Range/Units Bedside Glucose 87 98 70-99 mg/dl White Blood Count 8.22 4.8-10.8 K/uL Red Blood Count 4.08 4.7-6.1 M/uL Hemoglobin 12.2 14.0-18.0 g/dL Hematocrit 36.9 42-52 % Mean Corpuscular Volume 90.4 80-100 fL Mean Corpuscular Hemoglobin 29.9 25-34 pg Mean Corpuscular Hemoglobin Concent 33.1 32-36 g/dl RDW Standard Deviation 51.3 36.4-46.3 fL RDW Coefficient of Variation 15.6 11.5-14.5 % Platelet Count 179 130-400 K/uL Mean Platelet Volume 10.5 7.4-10.4 fL Sodium Level 144 136-145 mmol/L Potassium Level 3.8 3.5-5.1 mmol/L Chloride Level 115 98-107 mmol/L Carbon Dioxide Level 23 21-32 mmol/L Anion Gap 6.0 3-11 mmol/L Blood Urea Nitrogen 12 7-18 mg/dl Creatinine 1.30 0.60-1.40 mg/dl Est Creatinine Clear Calc Drug Dose 59.6 ml/min Estimated GFR () 67.8 Estimated GFR (Non- 58.5 BUN/Creatinine Ratio 9.0 10-20 Random Glucose 78 70-99 mg/dl Calcium Level 8.9 8.5-10.1 mg/dl Phosphorus Level 2.5 2.5-4.9 mg/dl Magnesium Level 1.3 1.8-2.4 mg/dl Test 05/26/17 07:32 05/26/17 11:03 Range/Units Bedside Glucose 83 149 70-99 mg/dl
[2017-05-26 16:12] VITALS: O2SAT 100
[2017-05-26] MEDS: CHOLESTYRAMINE LIGHT 4 GM PKT PO SCH (23:24)
[2017-05-27 00:22] VITALS: BP 142/78; PULSE 53; TEMP 36.6; O2SAT 98
[2017-05-27] MEDS: NSS + 20MEQ KCL 1000ML 1,000 ML IV SCH ×3 (01:51→18:48)
[2017-05-27] MEDS: OCTREOTIDE ACETATE IV SCH ×3 (01:51→18:48)
[2017-05-27] MEDS: OXYCODONE/ACETAMINOPHEN 7.5-325 TAB PO PRN ×3 (01:57→18:50)
[2017-05-27] MEDS: HEPARIN SOD 5000 UNIT/0.5 ML CARP SQ SCH ×3 (05:38→20:46)
[2017-05-27 07:51] VITALS: BP_SYST 165; BP_SYST 171; BP_DIAS 85; BP_DIAS 90; PULSE 44; TEMP 36.6; O2SAT 99
[2017-05-27 08:00] VITALS: O2SAT 99
[2017-05-27] MEDS: RASPBERRY SYRUP 5 ML UDP PO SCH ×2 (08:26→20:45)
[2017-05-27] MEDS: CLONAZEPAM 0.5 MG TAB PO PRN ×2 (08:26→20:44)
[2017-05-27] MEDS: VANCOMYCIN HCL 125 MG/2.5ML SOLN PO SCH ×2 (08:26→20:44)
[2017-05-27] MEDS: ONDANSETRON INJ 2 MG/ML 2 ML VIAL IV PRN (08:26)
[2017-05-27] MEDS: ASPIRIN 81 MG ECTAB PO SCH (08:30)
[2017-05-27] MEDS: ATORVASTATIN 40 MG TAB PO SCH (08:30)
[2017-05-27] MEDS: HYDROCORTISONE 10 MG TAB PO SCH ×2 (08:30→18:49)
[2017-05-27] MEDS: FLUOXETINE HCL 10 MG CAP PO SCH (08:30)
[2017-05-27] MEDS: DIPHENOXYLATE/ATROPINE 2.5/0.025MG TAB PO SCH ×3 (08:31→20:47)
[2017-05-27] MEDS: LACTOBACILLUS ACIDOPHILUS (FLORANEX) TAB PO SCH (08:31)
[2017-05-27] MEDS: CLONIDINE HCL 0.1 MG TAB PO SCH ×2 (08:31→20:50)
[2017-05-27] MEDS: RANITIDINE HCL 150 MG TAB PO SCH ×2 (08:32→20:49)
[2017-05-27] MEDS: ISOSORBIDE MONONITRATE 60 MG TABCR PO SCH (08:32)
[2017-05-27] MEDS: LISINOPRIL 5 MG TAB PO SCH (08:34)
[2017-05-27] MEDS: INSULIN ASPART 100 UNITS/ML 3 ML PEN SC SCH ×4 (08:36→20:46)
[2017-05-27] MEDS: NICOTINE 7 MG/24 HR TDSY TD SCH (08:37)
[2017-05-27] MEDS: INSULIN GLARGINE SOLOSTAR 100 UNITS/ML 3 ML PEN SC SCH ×2 (08:37→20:49)
[2017-05-27] MEDS: TIOTROPIUM BROMIDE 5 PUFF/90 MCG INH INH SCH (08:59)
[2017-05-27] MEDS ORDERED: COUGH DROP (SUGAR FREE) LOZ 24 LOZ/1 BOX PO PRN (10:15)
[2017-05-27] MEDS: CHOLESTYRAMINE LIGHT 4 GM PKT PO SCH ×2 (10:26→20:52)
--- NOTE | 2017-05-27 12:19 | Gastroenterology Progress Note ---
Progress Note Date of Service: May 27, 2017 Subjective Pt evaluation today including: conversation w/ patient, physical exam, chart review, lab review, review of inpatient medication list Pt reports stool volume decreased. He's having 1 tsp to 1 cupful of stool each time but still going about 20 times a day. Having LLQ abd cramping which radiate across lower quadrant. Stool collection completed, fecal fat pending. Review of Systems Constitutional: No fever, No chills Respiratory: No cough, No shortness of breath Cardiac: No chest pain Abdomen: + pain, + nausea (mild), + diarrhea, No vomiting Medications Current Inpatient Medications Medications (Trade) Dose Ordered Sig/Tisha Route Start Time Stop Time Status Last Admin Dose Admin Miscellaneous (Iv Fluids Completed) 1 ea PRN PRN N/A 05/21/17 22:30 05/21/18 22:29 Acetaminophen (Tylenol Tab) 650 mg Q4H PRN PO 05/21/17 23:00 06/20/17 22:59 Insulin Aspart (novoLOG ASPART) SLIDING SCALE If C... ACHS SC 05/22/17 06:30 06/21/17 06:59 05/27/17 08:36 7 UNITS Glucose (Glucose 40% Gel) 15-30 GRAMS 15 GRAMS... UD PRN PO 05/21/17 23:00 06/20/17 22:59 Glucose (Glucose Chew Tab) 4-8 Tablets 4 Tabl... UD PRN PO 05/21/17 23:00 06/20/17 22:59 Dextrose (Dextrose 50% 50ML Syringe) 25-50ML OF 50% DW IV FOR... UD PRN IV 05/21/17 23:00 06/20/17 22:59 Glucagon (Glucagon Inj) 1 mg UD PRN SQ 05/21/17 23:00 06/20/17 22:59 Aspirin (Ecotrin Tab) 81 mg QAM PO 05/22/17 08:00 06/21/17 07:59 05/27/17 08:30 81 MG Atorvastatin Calcium (Lipitor Tab) 80 mg DAILY PO 05/22/17 08:00 06/21/17 07:59 05/27/17 08:30 80 MG Hydrocortisone (Cortef Tab) 20 mg QAM PO 05/22/17 08:00 06/21/17 08:59 05/27/17 08:30 20 MG Ranitidine HCl (zANTac TAB) 150 mg BID PO 05/22/17 08:00 06/21/17 08:59 05/27/17 08:32 150 MG Vancomycin HCl (Vancomycin Oral Soln) 125 mg Taper BID PO 05/22/17 09:00 06/17/17 07:59 05/27/17 08:26 125 MG Miscellaneous Information (Order Awaiting Action) 1 ea QS N/A 05/22/17 08:00 06/21/17 07:59 Lactobacillus Acidophilus (Floranex Tab) 4 tab DAILY PO 05/22/17 08:00 06/21/17 07:59 05/27/17 08:31 4 TAB Mirtazapine (Remeron Tab) 30 mg HS PRN PO 05/21/17 23:00 06/20/17 22:59 Ondansetron HCl (Zofran Inj) 4 mg Q6H PRN IV 05/21/17 23:00 06/20/17 22:59 05/27/17 08:26 4 MG Promethazine HCl 12.5 mg/Sodium Chloride 50.5 ml @ 204 mls/hr Q6H PRN IV 05/21/17 23:00 06/20/17 22:59 Nicotine (Nicoderm Cq 7 Mg Patch) 1 patch QAM TD 05/22/17 08:00 06/21/17 08:59 05/23/17 08:42 1 PATCH Miscellaneous (Remove Nicoderm Patch) 1 ea HS N/A 05/22/17 21:00 06/21/17 20:59 05/23/17 22:04 1 EA Heparin Sodium (Porcine) (Heparin Sq 5000 Unit/0.5ml) 5,000 unit Q8 SQ 05/22/17 06:00 06/21/17 05:59 05/27/17 05:38 5,000 UNIT Hydrocortisone (Cortef Tab) 10 mg DAILY@1800 PO 05/22/17 18:00 06/21/17 17:59 05/26/17 18:28 10 MG Raspberry (Raspberry Syrup 5ml Cup) 5 ml Taper BID PO 05/22/17 08:00 06/17/17 07:59 05/27/17 08:26 5 ML Tiotropium [place] (Spiriva Handihaler Inhaler) 1 puff DAILY INH 05/23/17 08:00 06/22/17 07:59 05/27/17 08:59 1 PUFF Hydromorphone HCl (Dilaudid Inj) 0.5 mg Q3H PRN IV 05/22/17 18:00 06/04/17 22:59 05/25/17 04:04 0.5 MG Octreotide Acetate 50 mcg/ Syringe 5 ml @ 3 mls/min Q8@0200,1000,1800 IV 05/22/17 18:00 06/21/17 17:59 05/27/17 10:25 3 MLS/MIN Miscellaneous Information (Consult Glycemic Management Pharmacy) 1 ea UD PRN N/A 05/23/17 07:51 06/22/17 07:50 Lisinopril (Zestril Tab) 5 mg QAM PO 05/24/17 08:00 06/23/17 07:59 05/27/17 08:34 5 MG Isosorbide Mononitrate (Imdur Ext Rel Tab) 60 mg QAM PO 05/25/17 08:00 06/24/17 07:59 05/27/17 08:32 60 MG Fluoxetine HCl (Prozac Cap) 30 mg QAM PO 05/25/17 08:00 06/21/17 08:59 05/27/17 08:30 30 MG Oxycodone/ Acetaminophen (Percocet 7.5-325MG Tab) 1 tab Q6H PRN PO 05/24/17 17:15 06/07/17 17:14 05/27/17 08:26 1 TAB Insulin Glargine (Lantus Solostar Pen) 7 units BID SC 05/25/17 08:15 06/24/17 08:14 05/27/17 08:37 7 UNITS Clonidine HCl (Catapres Tab) 0.05 mg BID PO 05/25/17 20:00 06/24/17 19:59 05/27/17 08:31 0.05 MG Potassium Chloride/Sodium Chloride 1,000 ml @ 125 mls/hr Q8H IV 05/25/17 17:30 06/24/17 17:29 05/27/17 09:27 125 MLS/HR Clonazepam (Klonopin Tab) 0.5 mg BID PRN PO 05/25/17 17:45 06/24/17 17:44 05/27/17 08:26 0.5 MG Cholestyramine Resin (Questran Powder Light) 4 gm BID@0900,2300 PO 05/27/17 10:30 06/22/17 22:59 05/27/17 10:26 4 GM Diphenoxylate HCl/ Atropine (Lomotil Tab) 2 tab TID PO 05/27/17 14:00 06/21/17 07:59 05/27/17 10:26 2 TAB Menthol (Nice Lilian) 1 lilian TID PRN PO 05/27/17 10:15 06/26/17 10:14 05/27/17 10:35 1 LILIAN Objective Vital Signs Date Time Temp Pulse Resp B/P (MAP) Pulse Ox O2 Delivery O2 Flow Rate FiO2 05/27/17 08:00 99 Room Air 05/27/17 07:51 36.6 44 18 171/90 (117) 99 Room Air 165/85 (111) 05/27/17 00:22 36.6 53 18 142/78 (99) 98 Room Air 05/26/17 23:15 Room Air 05/26/17 16:12 100 Room Air 05/26/17 15:10 36.5 60 18 123/85 (98) 100 Room Air Physical Exam General Appearance: WD/WN, no apparent distress Eyes: normal inspection, PERRL, EOMI Neck: supple, no JVD, trachea midline Respiratory/Chest: normal breath sounds, no respiratory distress, no accessory muscle use Cardiovascular: regular rate, rhythm, no edema, no murmur Abdomen: normal bowel sounds, soft, + tenderness (LLQ) Extremities: normal inspection, no pedal edema, no calf tenderness Neurologic/Psych: alert, normal mood/affect, oriented x 3 Skin: normal color, warm/dry, no rash Laboratory Results Last 24 Hours Test 05/26/17 16:20 05/26/17 20:07 05/27/17 07:38 05/27/17 11:55 Bedside Glucose 166 mg/dl 222 mg/dl 86 mg/dl Assessment and Plan Patient is a 62 year old male with acute on chronic diarrhea with hx of collagenous colitis and ulcerative colitis, Cdiff positive on 05/02 but since then repeat stool study negative. He had been on Questran, Lomotil, Vancomycin taper, Xifaxan, back on Octreotide as well. 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 Still ongoing diarrhea per pt's report though volume decreasing. Stool collection for amt and fecal fat pending. - Continue current diet - Continue Clonidine 0.05mg BID; Increase Questran 4g to BID, Lomotil to 2 tab TID; Continue Vancomycin taper - F/U fecal fat. - Defer inpt flex sigmoidscopy. Late entry: Razia was seen and examined on 05/27 with Pema Gama. Her note reflects our findings and plan.
[2017-05-27 12:51] LABS: BUN/CREATININE RATIO 7.7 (10-20); CALCIUM 8.4 mg/dl (8.5-10.1); CREATININE 1.1 mg/dl (0.60-1.40); MAGNESIUM 1.6 mg/dl (1.8-2.4); POTASSIUM 3.7 mmol/L (3.5-5.1)
--- NOTE | 2017-05-27 14:26 | Progress Note ---
Internal Med Progress Note Date of Service: May 27, 2017. Provider Documentation: SUBJECTIVE: Patient continues to have diarrhea, but slightly improved Does have chronic abdominal pain No fever, chills, nausea, vomiting OBJECTIVE: Vital Signs-as noted below Exam: General-AAOX3, no distress Neck-Supple, No JVD Lungs-AEBE, no wheezing Heart-S1, S2 normal, no murmurs Abdomen-Soft, tenderness all over, no rigidity, BS present Extremities-No edema Lab data as noted below. ASSESSMENT & PLAN: 62 year old M with chronic diarrhea and recent c diff in setting of UC and GI issues for 15 years presents with worsened non-bloody diarrhea after discharge two weeks ago. ACUTE ON CHRONIC DIARRHEA- Have hx of ulcerative colitis , chronic diarrhea- multiple times on a daily basis. C diff was positive in 04/2017. Came back for worsening of diarrhea. -Continues to have diarrhea, slight improvement though. - On Lomotil (Increase to 2 tab TID), Questran (Increase to 4 gram BID), Octreotide Clonidine bid added on 05/25/17. - Continue Vancomycin taper - F/U 24 hour fecal fat/volume -Work up- C diff negative outpatient and in hospital, CT - no acute findings, Stool- 24 hour for fecal fat and volume. -Appreciate GI inputs CRISTIAN, Pre renal- Resolved -Continue with IV HYPOMAGNESEMIA -Replace -Monitor DEPRESSION/ANXIETY -Continue with Prozac BRADYCARDIA -Metoprolol discontinued CHRONIC ADRENAL INSUFFICIENCY -Continue with cortef ULCERATIVE COLITIS -Takes hydrocortisone regularly to control flares and in setting of chronic adrenal insufficiency. Recent colonoscopy was 02/20/17 while he was hospitalized for a UC flare. Cont per GI. HX OF CAD -stable, no active ACS or concerning symptoms. Cont medical management with ASA , statin, Lopressor, Imdur. TTE normal during last hospitalization and Cardiology evaluated him. DM II: Lantus/ISS per pharmacy recs. COPD-not oxygen-dependent and is stable without wheezing on exam. Cont Spiriva and Nicoderm patch to control cravings to smoke. TOBACCO ABUSE DISORDER-Nicotine replacement given. IRON DEFICIENCY ANEMIA DVT PROPHYLAXIS : Heparin SQ FULL CODE DISPOSITION Medical mx in progress Vital Signs: Date Time Temp Pulse Resp B/P (MAP) Pulse Ox O2 Delivery O2 Flow Rate FiO2 05/27/17 08:00 99 Room Air 05/27/17 07:51 36.6 44 18 171/90 (117) 99 Room Air 165/85 (111) 05/27/17 00:22 36.6 53 18 142/78 (99) 98 Room Air 05/26/17 23:15 Room Air 05/26/17 16:12 100 Room Air 05/26/17 15:10 36.5 60 18 123/85 (98) 100 Room Air Lab Results: Results Past 24 Hours Test 05/26/17 16:20 05/26/17 20:07 05/27/17 07:38 05/27/17 12:14 Range/Units Bedside Glucose 166 222 86 70-99 mg/dl Sodium Level 143 136-145 mmol/L Potassium Level 3.7 3.5-5.1 mmol/L Chloride Level 114 98-107 mmol/L Carbon Dioxide Level 23 21-32 mmol/L Anion Gap 6.0 3-11 mmol/L Blood Urea Nitrogen 9 7-18 mg/dl Creatinine 1.10 0.60-1.40 mg/dl Est Creatinine Clear Calc Drug Dose 70.4 ml/min Estimated GFR () 82.9 Estimated GFR (Non- 71.6 BUN/Creatinine Ratio 7.7 10-20 Random Glucose 91 70-99 mg/dl Calcium Level 8.4 8.5-10.1 mg/dl Magnesium Level 1.6 1.8-2.4 mg/dl
[2017-05-27 14:58] VITALS: BP 137/81; PULSE 49; TEMP 36.3; O2SAT 98
[2017-05-27] MEDS: MAGNESIUM SULFATE 1GM / D5W 1 GM in PREMIXED IN D5W 100 ML IV SCH ×2 (16:05→17:09)
[2017-05-27 16:10] VITALS: O2SAT 100
[2017-05-28] VITALS: BP 140/77; PULSE 50; TEMP 36.5; O2SAT 98
[2017-05-28] MEDS: ONDANSETRON INJ 2 MG/ML 2 ML VIAL IV PRN ×2 (00:04→07:55)
[2017-05-28] MEDS: OCTREOTIDE ACETATE IV SCH ×2 (02:27→10:21)
[2017-05-28] MEDS: OXYCODONE/ACETAMINOPHEN 7.5-325 TAB PO PRN ×4 (02:28→21:43)
[2017-05-28] MEDS: HEPARIN SOD 5000 UNIT/0.5 ML CARP SQ SCH ×3 (05:55→20:46)
[2017-05-28 07:46] VITALS: BP 151/81; PULSE 44; TEMP 36.7; O2SAT 100
[2017-05-28] MEDS: CLONAZEPAM 0.5 MG TAB PO PRN ×2 (07:56→20:48)
[2017-05-28] MEDS: CHOLESTYRAMINE LIGHT 4 GM PKT PO SCH ×2 (07:58→21:43)
[2017-05-28] MEDS: VANCOMYCIN HCL 125 MG/2.5ML SOLN PO SCH ×2 (07:58→20:47)
[2017-05-28] MEDS: LISINOPRIL 5 MG TAB PO SCH (07:58)
[2017-05-28] MEDS: LACTOBACILLUS ACIDOPHILUS (FLORANEX) TAB PO SCH (07:58)
[2017-05-28] MEDS: RANITIDINE HCL 150 MG TAB PO SCH ×2 (07:58→20:49)
[2017-05-28] MEDS: TIOTROPIUM BROMIDE 5 PUFF/90 MCG INH INH SCH (07:58)
[2017-05-28] MEDS: RASPBERRY SYRUP 5 ML UDP PO SCH ×2 (07:58→20:49)
[2017-05-28] MEDS: ISOSORBIDE MONONITRATE 60 MG TABCR PO SCH (07:58)
[2017-05-28] MEDS: ASPIRIN 81 MG ECTAB PO SCH (07:59)
[2017-05-28] MEDS: CLONIDINE HCL 0.1 MG TAB PO SCH ×2 (07:59→20:48)
[2017-05-28] MEDS: ATORVASTATIN 40 MG TAB PO SCH (07:59)
[2017-05-28] MEDS: FLUOXETINE HCL 10 MG CAP PO SCH (07:59)
[2017-05-28 08:00] VITALS: O2SAT 100
[2017-05-28 08:00] LABS: BASO % 0.2 %; BASO ABS # 0.01 K/uL (0-0.2); COMPLETE YES; EOS % 2.7 %; HEMATOCRIT 34.4 % (42-52); IG% 0.5 %; LYMPH % 33.3 %; LYMPH ABS # 2.07 K/uL (1.2-3.4); MEAN CELL VOLUME 89.1 fL (80-100); MEAN CORPUSCULAR HEMOGLOBIN 28.8 pg (25-34); MEAN CORPUSCULAR HGB CONC 32.3 g/dl (32-36); MEAN PLATELET VOLUME 10.8 fL (7.4-10.4); MONO % 12.2 %; NEUT % 51.1 %; PLATELET COUNT 168 K/uL (130-400); RED BLOOD COUNT 3.86 M/uL (4.7-6.1); WHITE BLOOD COUNT 6.21 K/uL (4.8-10.8)
[2017-05-28] MEDS: NICOTINE 7 MG/24 HR TDSY TD SCH (08:00)
[2017-05-28] MEDS: HYDROCORTISONE 10 MG TAB PO SCH ×2 (08:00→18:24)
[2017-05-28] MEDS: DIPHENOXYLATE/ATROPINE 2.5/0.025MG TAB PO SCH ×3 (08:00→20:48)
[2017-05-28 08:18] LABS: BUN/CREATININE RATIO 5.6 (10-20); CALCIUM 8.9 mg/dl (8.5-10.1); CREATININE 1.2 mg/dl (0.60-1.40); MAGNESIUM 1.7 mg/dl (1.8-2.4); POTASSIUM 3.6 mmol/L (3.5-5.1)
[2017-05-28] MEDS: INSULIN ASPART 100 UNITS/ML 3 ML PEN SC SCH ×4 (09:08→20:47)
[2017-05-28] MEDS: INSULIN GLARGINE SOLOSTAR 100 UNITS/ML 3 ML PEN SC SCH ×2 (09:08→20:46)
[2017-05-28] MEDS: NSS + 20MEQ KCL 1000ML 1,000 ML IV SCH (09:09)
--- NOTE | 2017-05-28 10:59 | Pharmacy Progress Note ---
Glycemic: Assessment & Plan Date of Service May 28, 2017. Assessment & Plan Outpatient Anti-diabetic Regimen: * Humalog sliding scale, up to 40 units/day * Lantus 10-20 units daily * A1c = 7 % 02/20/17, updated A1c ordered ASSESSMENT: 05/28/17: * Patient's BSGs have been well-controlled past 24+ hours. * No changes to regimen at this time. from 05/25/17 * 62 yo male type 2 diabetic admitted with chronic diarrhea and recent Cdiff, discharged 2 weeks ago. Patient received IV steroids yesterday, now on home dose PO steroids for adrenal insufficiency. * Patient's blood sugar pretty well controlled despite IV steroids yesterday, will tighten carb ratio slightly at this time and continue to titrate parameters. * Continue Lantus dose at this time, fasting BSG this AM acceptable. * ADA & AACE recommend a goal blood sugar range 140-180 mg/dl for the majority of critically ill & non-critically ill patients. However, more stringent targets may be selected in individual cases. Will utilize more stringent goal of 110-140mg/dl based on patient age & comorbidities & A1c. PLAN FOR INPATIENT GLYCEMIC CONTROL: * Continue Lantus 7 units SQ BID * Continue correction factor of 25 mg/dl/unit * Continue carb ratio of 1 unit per 8 grams CHO consumed * Continue goal range of Low 110 mg/dL - High 140 mg/dL * Please note that the plan above was derived based on current level of insulin resistance and hospital stress. These recommendations are appropriate for inpatient admission only. Plan of care upon discharge will need to be reassessed to avoid potential outpatient hypo/hyperglycemia. Thank you.
--- NOTE | 2017-05-28 11:53 | Gastroenterology Progress Note ---
Progress Note Date of Service: May 28, 2017 Subjective Pt evaluation today including: conversation w/ patient, physical exam, chart review, lab review, review of inpatient medication list Pt still c/o 20 BMs daily. Though RN reports at most 5x during day shift. Pt said though volume is decreasing, the passage of stool is more "forceful". He is able to tolerate diet but mostly taking in jello and popsicles. Still having lower quadrant abd cramping. Review of Systems Constitutional: No fever, No chills Respiratory: No cough, No shortness of breath Cardiac: No chest pain Abdomen: + see HPI, + pain, + diarrhea, No nausea, No vomiting Medications Current Inpatient Medications Medications (Trade) Dose Ordered Sig/Tisha Route Start Time Stop Time Status Last Admin Dose Admin Miscellaneous (Iv Fluids Completed) 1 ea PRN PRN N/A 05/21/17 22:30 05/21/18 22:29 Acetaminophen (Tylenol Tab) 650 mg Q4H PRN PO 05/21/17 23:00 06/20/17 22:59 Insulin Aspart (novoLOG ASPART) SLIDING SCALE If C... ACHS SC 05/22/17 06:30 06/21/17 06:59 05/28/17 09:08 7 UNITS Glucose (Glucose 40% Gel) 15-30 GRAMS 15 GRAMS... UD PRN PO 05/21/17 23:00 06/20/17 22:59 Glucose (Glucose Chew Tab) 4-8 Tablets 4 Tabl... UD PRN PO 05/21/17 23:00 06/20/17 22:59 Dextrose (Dextrose 50% 50ML Syringe) 25-50ML OF 50% DW IV FOR... UD PRN IV 05/21/17 23:00 06/20/17 22:59 Glucagon (Glucagon Inj) 1 mg UD PRN SQ 05/21/17 23:00 06/20/17 22:59 Aspirin (Ecotrin Tab) 81 mg QAM PO 05/22/17 08:00 06/21/17 07:59 05/28/17 07:59 81 MG Atorvastatin Calcium (Lipitor Tab) 80 mg DAILY PO 05/22/17 08:00 06/21/17 07:59 05/28/17 07:59 80 MG Hydrocortisone (Cortef Tab) 20 mg QAM PO 05/22/17 08:00 06/21/17 08:59 05/28/17 08:00 20 MG Ranitidine HCl (zANTac TAB) 150 mg BID PO 05/22/17 08:00 06/21/17 08:59 05/28/17 07:58 150 MG Vancomycin HCl (Vancomycin Oral Soln) 125 mg Taper BID PO 05/22/17 09:00 06/17/17 07:59 05/28/17 07:58 125 MG Miscellaneous Information (Order Awaiting Action) 1 ea QS N/A 05/22/17 08:00 06/21/17 07:59 Lactobacillus Acidophilus (Floranex Tab) 4 tab DAILY PO 05/22/17 08:00 06/21/17 07:59 05/28/17 07:58 4 TAB Mirtazapine (Remeron Tab) 30 mg HS PRN PO 05/21/17 23:00 06/20/17 22:59 Ondansetron HCl (Zofran Inj) 4 mg Q6H PRN IV 05/21/17 23:00 06/20/17 22:59 05/28/17 07:55 4 MG Promethazine HCl 12.5 mg/Sodium Chloride 50.5 ml @ 204 mls/hr Q6H PRN IV 05/21/17 23:00 06/20/17 22:59 Nicotine (Nicoderm Cq 7 Mg Patch) 1 patch QAM TD 05/22/17 08:00 06/21/17 08:59 05/23/17 08:42 1 PATCH Miscellaneous (Remove Nicoderm Patch) 1 ea HS N/A 05/22/17 21:00 06/21/17 20:59 05/23/17 22:04 1 EA Heparin Sodium (Porcine) (Heparin Sq 5000 Unit/0.5ml) 5,000 unit Q8 SQ 05/22/17 06:00 06/21/17 05:59 05/28/17 05:55 5,000 UNIT Hydrocortisone (Cortef Tab) 10 mg DAILY@1800 PO 05/22/17 18:00 06/21/17 17:59 05/27/17 18:49 10 MG Raspberry (Raspberry Syrup 5ml Cup) 5 ml Taper BID PO 05/22/17 08:00 06/17/17 07:59 05/28/17 07:58 5 ML Tiotropium [place] (Spiriva Handihaler Inhaler) 1 puff DAILY INH 05/23/17 08:00 06/22/17 07:59 05/28/17 07:58 1 PUFF Hydromorphone HCl (Dilaudid Inj) 0.5 mg Q3H PRN IV 05/22/17 18:00 06/04/17 22:59 05/25/17 04:04 0.5 MG Octreotide Acetate 50 mcg/ Syringe 5 ml @ 3 mls/min Q8@0200,1000,1800 IV 05/22/17 18:00 06/21/17 17:59 05/28/17 10:21 3 MLS/MIN Miscellaneous Information (Consult Glycemic Management Pharmacy) 1 ea UD PRN N/A 05/23/17 07:51 06/22/17 07:50 Lisinopril (Zestril Tab) 5 mg QAM PO 05/24/17 08:00 06/23/17 07:59 05/28/17 07:58 5 MG Isosorbide Mononitrate (Imdur Ext Rel Tab) 60 mg QAM PO 05/25/17 08:00 06/24/17 07:59 05/28/17 07:58 60 MG Fluoxetine HCl (Prozac Cap) 30 mg QAM PO 05/25/17 08:00 06/21/17 08:59 05/28/17 07:59 30 MG Oxycodone/ Acetaminophen (Percocet 7.5-325MG Tab) 1 tab Q6H PRN PO 05/24/17 17:15 06/07/17 17:14 05/28/17 09:06 1 TAB Insulin Glargine (Lantus Solostar Pen) 7 units BID SC 05/25/17 08:15 06/24/17 08:14 05/28/17 09:08 7 UNITS Clonidine HCl (Catapres Tab) 0.05 mg BID PO 05/25/17 20:00 06/24/17 19:59 05/28/17 07:59 0.05 MG Clonazepam (Klonopin Tab) 0.5 mg BID PRN PO 05/25/17 17:45 06/24/17 17:44 05/28/17 07:56 0.5 MG Cholestyramine Resin (Questran Powder Light) 4 gm BID@0900,2300 PO 05/27/17 10:30 06/22/17 22:59 05/28/17 07:58 4 GM Diphenoxylate HCl/ Atropine (Lomotil Tab) 2 tab TID PO 05/27/17 14:00 06/21/17 07:59 05/28/17 08:00 2 TAB Menthol (Nice Lilian) 1 lilian TID PRN PO 05/27/17 10:15 06/26/17 10:14 05/27/17 10:35 1 LILIAN Objective Vital Signs Date Time Temp Pulse Resp B/P (MAP) Pulse Ox O2 Delivery O2 Flow Rate FiO2 05/28/17 08:00 100 Room Air 05/28/17 07:46 36.7 44 18 151/81 (104) 100 Room Air 05/28/17 00:24 Room Air 05/28/17 00:00 36.5 50 18 140/77 (98) 98 Room Air 05/27/17 16:10 100 Room Air 05/27/17 14:58 36.3 49 18 137/81 (99) 98 Room Air Physical Exam General Appearance: WD/WN, no apparent distress Eyes: normal inspection, PERRL, EOMI Neck: supple, no JVD, trachea midline Respiratory/Chest: normal breath sounds, no respiratory distress, no accessory muscle use Cardiovascular: regular rate, rhythm, no gallop, no murmur Abdomen: normal bowel sounds, soft, + tenderness (LLQ) Extremities: normal inspection, no pedal edema, no calf tenderness Neurologic/Psych: alert, normal mood/affect, oriented x 3 Skin: normal color, no jaundice, no rash Laboratory Results Last 24 Hours Test 05/27/17 12:14 05/27/17 16:38 05/27/17 20:25 05/28/17 06:58 Sodium Level 143 mmol/L 143 mmol/L Potassium Level 3.7 mmol/L 3.6 mmol/L Chloride Level 114 mmol/L 115 mmol/L Carbon Dioxide Level 23 mmol/L 21 mmol/L Anion Gap 6.0 mmol/L 7.0 mmol/L Blood Urea Nitrogen 9 mg/dl 7 mg/dl Creatinine 1.10 mg/dl 1.20 mg/dl Est Creatinine Clear Calc Drug Dose 70.4 ml/min 64.5 ml/min Estimated GFR () 82.9 74.7 Estimated GFR (Non- 71.6 64.4 BUN/Creatinine Ratio 7.7 5.6 Random Glucose 91 mg/dl 103 mg/dl Calcium Level 8.4 mg/dl 8.9 mg/dl Magnesium Level 1.6 mg/dl 1.7 mg/dl Bedside Glucose 89 mg/dl 115 mg/dl White Blood Count 6.21 K/uL Red Blood Count 3.86 M/uL Hemoglobin 11.1 g/dL Hematocrit 34.4 % Mean Corpuscular Volume 89.1 fL Mean Corpuscular Hemoglobin 28.8 pg Mean Corpuscular Hemoglobin Concent 32.3 g/dl Platelet Count 168 K/uL Mean Platelet Volume 10.8 fL Neutrophils (%) (Auto) 51.1 % Lymphocytes (%) (Auto) 33.3 % Monocytes (%) (Auto) 12.2 % Eosinophils (%) (Auto) 2.7 % Basophils (%) (Auto) 0.2 % Neutrophils # (Auto) 3.17 K/uL Lymphocytes # (Auto) 2.07 K/uL Monocytes # (Auto) 0.76 K/uL Eosinophils # (Auto) 0.17 K/uL Basophils # (Auto) 0.01 K/uL RDW Standard Deviation 50.5 fL RDW Coefficient of Variation 15.6 % Immature Granulocyte % (Auto) 0.5 % Immature Granulocyte # (Auto) 0.03 K/uL Test 05/28/17 07:47 Bedside Glucose 98 mg/dl Assessment and Plan Patient is a 62 year old male with acute on chronic diarrhea with hx of collagenous colitis and ulcerative colitis, Cdiff positive on 05/02 but since then repeat stool study negative. He had been on Questran, Lomotil, Vancomycin taper, Xifaxan, back on Octreotide as well. 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 Still ongoing diarrhea per pt's report though volume decreasing. Stool collection for amt and fecal fat pending. Today discussed with him possibility of DC soon. Informed him that renal function is normal, no signs of dehydration, or major electrolyte imbalance. He is also tolerating diet, and per his report stool volume decreasing. Thus we can make further med adjustments in outpt setting. Having him on prolonger hospitalization stay also puts him at risk for having nosocomial infections. He got upset, stating he's still dehydrated, and that at home his is recovering with complicated breast cancer thus cannot clean up after him all the time. - DC IVF - Continue current diet, advised him to stop jello and popsicles, start more solid diet. - Continue Clonidine 0.05mg BID; Questran 4g BID, Lomotil to 2 tab TID; Continue Vancomycin taper. Increased Octreotide to 100mcg q8hrs - F/U fecal fat. - Defer inpt flex sigmoidscopy. Addendum: discussed w Dr. Pacheco, will add Peptobismol 2 tabs QID and Amitriptyline 25mg QHS as well. ATTESTATION: I have performed a history and physical examination of this patient and reviewed the electronic record. Specifically, vexing problem of ongoing diarrhea in a patient with microscopic colitis. In view of his adrenal insufficiency we have deferred use of topical or systemic corticosteroids, but as all other measures appear to have failed, we will likely need to start budesonide. I have discussed the case with NICOLAS Queen. The above note reflects my findings, conclusions, and recommendations. Andrea Pacheco MD
[2017-05-28] MEDS ORDERED: MAGNESIUM SULFATE 1GM / D5W 1 GM in PREMIXED IN D5W 100 ML IV ONE (13:00)
--- NOTE | 2017-05-28 13:06 | Progress Note ---
Internal Med Progress Note Date of Service: May 28, 2017. Provider Documentation: SUBJECTIVE: Patient continues to have diarrhea. Does have chronic abdominal pain. No fever, chills, nausea, vomiting. Frustrated about his condition. OBJECTIVE: Vital Signs-as noted below Exam: General-AAOX3, no distress Neck-Supple, No JVD Lungs-AEBE, no wheezing Heart-S1, S2 normal, no murmurs Abdomen-Soft, tenderness all over, no rigidity, BS present Extremities-No edema Lab data as noted below. ASSESSMENT & PLAN: 62 year old M with chronic diarrhea and recent c diff in setting of UC and GI issues for 15 years presents with worsened non-bloody diarrhea after discharge two weeks ago. ACUTE ON CHRONIC DIARRHEA - Have hx of ulcerative colitis , chronic diarrhea- multiple times on a daily basis. C diff was positive in 04/2017. Came back for worsening of diarrhea. -Continues to have diarrhea, slight improvement though. - On Lomotil (Increased to 2 tab TID), Questran (Increased to 4 gram BID), Octreotide (Increased to 100 mcg q 8 hours today), Clonidine bid added on . - Continue Vancomycin taper - F/U 24 hour fecal fat/volume. No plans for flex sigmoidoscopy -Work up- C diff negative outpatient and in hospital, CT - no acute findings, Stool- 24 hour for fecal fat and volume- follow up. -Appreciate GI inputs CRISTIAN, Pre renal- Resolved -Discontinue IVF HYPOMAGNESEMIA -Replace -Monitor DEPRESSION/ANXIETY -Continue with Prozac BRADYCARDIA -Metoprolol discontinued CHRONIC ADRENAL INSUFFICIENCY -Continue with cortef ULCERATIVE COLITIS -Takes hydrocortisone regularly to control flares and in setting of chronic adrenal insufficiency. Recent colonoscopy was 02/20/17 while he was hospitalized for a UC flare. Cont per GI. HX OF CAD -stable, no active ACS or concerning symptoms. Cont medical management with ASA , statin, Lopressor, Imdur. TTE normal during last hospitalization and Cardiology evaluated him. DM II: Lantus/ISS per pharmacy recs. COPD-not oxygen-dependent and is stable without wheezing on exam. Cont Spiriva and Nicoderm patch to control cravings to smoke. TOBACCO ABUSE DISORDER-Nicotine replacement given. IRON DEFICIENCY ANEMIA DVT PROPHYLAXIS : Heparin SQ FULL CODE DISPOSITION Medical mx in progress Likely discharge in 1-2 days Frustrated about his condition and concerned that at home wont be able to take care of him as she has breast carcinoma. Discussed that if no signs of dehydration, electrolyte abnormalities, should be able to discharge home with close follow up outpatient. Vital Signs: Date Time Temp Pulse Resp B/P (MAP) Pulse Ox O2 Delivery O2 Flow Rate FiO2 05/28/17 08:00 100 Room Air 05/28/17 07:46 36.7 44 18 151/81 (104) 100 Room Air 05/28/17 00:24 Room Air 05/28/17 00:00 36.5 50 18 140/77 (98) 98 Room Air 05/27/17 16:10 100 Room Air 05/27/17 14:58 36.3 49 18 137/81 (99) 98 Room Air Lab Results: Results Past 24 Hours Test 05/27/17 16:38 05/27/17 20:25 05/28/17 06:58 05/28/17 07:47 Range/Units Bedside Glucose 89 115 98 70-99 mg/dl White Blood Count 6.21 4.8-10.8 K/uL Red Blood Count 3.86 4.7-6.1 M/uL Hemoglobin 11.1 14.0-18.0 g/dL Hematocrit 34.4 42-52 % Mean Corpuscular Volume 89.1 80-100 fL Mean Corpuscular Hemoglobin 28.8 25-34 pg Mean Corpuscular Hemoglobin Concent 32.3 32-36 g/dl Platelet Count 168 130-400 K/uL Mean Platelet Volume 10.8 7.4-10.4 fL Neutrophils (%) (Auto) 51.1 % Lymphocytes (%) (Auto) 33.3 % Monocytes (%) (Auto) 12.2 % Eosinophils (%) (Auto) 2.7 % Basophils (%) (Auto) 0.2 % Neutrophils # (Auto) 3.17 1.4-6.5 K/uL Lymphocytes # (Auto) 2.07 1.2-3.4 K/uL Monocytes # (Auto) 0.76 0.11-0.59 K/uL Eosinophils # (Auto) 0.17 0-0.5 K/uL Basophils # (Auto) 0.01 0-0.2 K/uL RDW Standard Deviation 50.5 36.4-46.3 fL RDW Coefficient of Variation 15.6 11.5-14.5 % Immature Granulocyte % (Auto) 0.5 % Immature Granulocyte # (Auto) 0.03 0.00-0.02 K/uL Sodium Level 143 136-145 mmol/L Potassium Level 3.6 3.5-5.1 mmol/L Chloride Level 115 98-107 mmol/L Carbon Dioxide Level 21 21-32 mmol/L Anion Gap 7.0 3-11 mmol/L Blood Urea Nitrogen 7 7-18 mg/dl Creatinine 1.20 0.60-1.40 mg/dl Est Creatinine Clear Calc Drug Dose 64.5 ml/min Estimated GFR () 74.7 Estimated GFR (Non- 64.4 BUN/Creatinine Ratio 5.6 10-20 Random Glucose 103 70-99 mg/dl Calcium Level 8.9 8.5-10.1 mg/dl Magnesium Level 1.7 1.8-2.4 mg/dl
[2017-05-28] MEDS: OCTREOTIDE ACETATE 100 MCG/ML VIAL SQ SCH ×2 (13:39→20:47)
[2017-05-28] MEDS: BISMUTH SUBSALICYLATE SUSP PO SCH ×2 (14:34→20:50)
[2017-05-28 15:55] VITALS: BP 118/74; PULSE 57; TEMP 36.7; O2SAT 99
[2017-05-28 16:05] VITALS: O2SAT 100
[2017-05-28] MEDS ORDERED: HYDROmorphone INJ 0.5 MG/0.5 ML SYR IV PRN (18:00)
[2017-05-28] MEDS: AMITRIPTYLINE HCL 25 MG TAB PO SCH (20:50)
[2017-05-28 22:59] VITALS: BP 134/62; PULSE 44; TEMP 36.7; O2SAT 98
[2017-05-29] MEDS: HEPARIN SOD 5000 UNIT/0.5 ML CARP SQ SCH ×3 (06:18→21:15)
[2017-05-29] MEDS: OCTREOTIDE ACETATE 100 MCG/ML VIAL SQ SCH (06:19)
[2017-05-29] MEDS: OXYCODONE/ACETAMINOPHEN 7.5-325 TAB PO PRN ×2 (06:34→19:07)
[2017-05-29 08:00] VITALS: BP 127/75; PULSE 58; TEMP 36.8; O2SAT 97
[2017-05-29] MEDS: INSULIN ASPART 100 UNITS/ML 3 ML PEN SC SCH ×4 (08:54→21:09)
[2017-05-29] MEDS: INSULIN GLARGINE SOLOSTAR 100 UNITS/ML 3 ML PEN SC SCH ×2 (08:55→21:15)
[2017-05-29] MEDS: NICOTINE 7 MG/24 HR TDSY TD SCH (08:57)
[2017-05-29] MEDS: RASPBERRY SYRUP 5 ML UDP PO SCH ×2 (09:01→21:06)
[2017-05-29] MEDS: VANCOMYCIN HCL 125 MG/2.5ML SOLN PO SCH ×2 (09:01→21:16)
[2017-05-29] MEDS: FLUOXETINE HCL 10 MG CAP PO SCH (09:02)
[2017-05-29] MEDS: LISINOPRIL 5 MG TAB PO SCH (09:02)
[2017-05-29] MEDS: HYDROCORTISONE 10 MG TAB PO SCH ×2 (09:03→19:19)
[2017-05-29] MEDS: ISOSORBIDE MONONITRATE 60 MG TABCR PO SCH (09:04)
[2017-05-29] MEDS: CLONIDINE HCL 0.1 MG TAB PO SCH ×2 (09:04→21:07)
[2017-05-29] MEDS: DIPHENOXYLATE/ATROPINE 2.5/0.025MG TAB PO SCH ×3 (09:04→21:07)
[2017-05-29] MEDS: RANITIDINE HCL 150 MG TAB PO SCH ×2 (09:05→21:07)
[2017-05-29] MEDS: LACTOBACILLUS ACIDOPHILUS (FLORANEX) TAB PO SCH (09:05)
[2017-05-29] MEDS: ATORVASTATIN 40 MG TAB PO SCH (09:05)
[2017-05-29] MEDS: ASPIRIN 81 MG ECTAB PO SCH (09:06)
[2017-05-29] MEDS: BISMUTH SUBSALICYLATE SUSP PO SCH ×4 (09:07→21:04)
[2017-05-29] MEDS: CLONAZEPAM 0.5 MG TAB PO PRN ×2 (09:09→21:04)
[2017-05-29] MEDS: TIOTROPIUM BROMIDE 5 PUFF/90 MCG INH INH SCH (09:09)
[2017-05-29 09:25] LABS: BUN/CREATININE RATIO 8.6 (10-20); CALCIUM 9.3 mg/dl (8.5-10.1); CREATININE 1.2 mg/dl (0.60-1.40); MAGNESIUM 1.6 mg/dl (1.8-2.4); POTASSIUM 3.2 mmol/L (3.5-5.1)
[2017-05-29] MEDS: CHOLESTYRAMINE LIGHT 4 GM PKT PO SCH ×2 (10:09→22:22)
[2017-05-29] MEDS: MAGNESIUM SULFATE 1GM / D5W 1 GM in PREMIXED IN D5W 100 ML IV SCH ×2 (10:52→12:43)
[2017-05-29] MEDS: POTASSIUM CHLORIDE 20 MEQ TABCR PO SCH ×2 (10:53→12:44)
--- NOTE | 2017-05-29 10:54 | Pharmacy Progress Note ---
Glycemic: Assessment & Plan Date of Service May 29, 2017. Assessment & Plan Outpatient Anti-diabetic Regimen: * Humalog sliding scale, up to 40 units/day * Lantus 10-20 units daily * A1c = 7.6 % 05/24/17 ASSESSMENT: 05/29/17: * Patient's BSGs have been well-controlled the past several days with ~35 units per day of insulin * No changes to regimen have been needed since 05/25/17. from 05/25/17 * 62 yo male type 2 diabetic admitted with chronic diarrhea and recent Cdiff, discharged 2 weeks ago. Patient received IV steroids yesterday, now on home dose PO steroids for adrenal insufficiency. * Patient's blood sugar pretty well controlled despite IV steroids yesterday, will tighten carb ratio slightly at this time and continue to titrate parameters. * Continue Lantus dose at this time, fasting BSG this AM acceptable. * ADA & AACE recommend a goal blood sugar range 140-180 mg/dl for the majority of critically ill & non-critically ill patients. However, more stringent targets may be selected in individual cases. Will utilize more stringent goal of 110-140mg/dl based on patient age & comorbidities & A1c. PLAN FOR INPATIENT GLYCEMIC CONTROL: * Continue Lantus 7 units SQ BID * Continue correction factor of 25 mg/dl/unit * Continue carb ratio of 1 unit per 8 grams CHO consumed * Continue goal range of Low 110 mg/dL - High 140 mg/dL DISCHARGE RECOMMENDATIONS: * Patient can resume home dose on discharge * Home regimen is highly bolus weighted, however, this is typical for someone on steroids since they have the most profound effect on prandial BSGs. * Please note that the plan above was derived based on current level of insulin resistance and hospital stress. These recommendations are appropriate for inpatient admission only. Plan of care upon discharge will need to be reassessed to avoid potential outpatient hypo/hyperglycemia.
--- NOTE | 2017-05-29 13:56 | Gastroenterology Progress Note ---
Progress Note Date of Service: May 29, 2017 Subjective Pt evaluation today including: conversation w/ patient, physical exam, chart review, lab review, review of inpatient medication list Pt still reporting BM 20x a day, w 4x incontinence yesterday, same as day before. He is requesting for more Percocet and Klonopin as he is using these meds to help him sleep and anxiety control. He feels the diarrhea is partly related to his anxiety Review of Systems Constitutional: No fever, No chills Respiratory: No cough, No shortness of breath Cardiac: No chest pain Abdomen: + pain, + diarrhea, No nausea, No vomiting Medications Current Inpatient Medications Medications (Trade) Dose Ordered Sig/Tisha Route Start Time Stop Time Status Last Admin Dose Admin Miscellaneous (Iv Fluids Completed) 1 ea PRN PRN N/A 05/21/17 22:30 05/21/18 22:29 Acetaminophen (Tylenol Tab) 650 mg Q4H PRN PO 05/21/17 23:00 06/20/17 22:59 Insulin Aspart (novoLOG ASPART) SLIDING SCALE If C... ACHS SC 05/22/17 06:30 06/21/17 06:59 05/29/17 08:54 8 UNITS Glucose (Glucose 40% Gel) 15-30 GRAMS 15 GRAMS... UD PRN PO 05/21/17 23:00 06/20/17 22:59 Glucose (Glucose Chew Tab) 4-8 Tablets 4 Tabl... UD PRN PO 05/21/17 23:00 06/20/17 22:59 Dextrose (Dextrose 50% 50ML Syringe) 25-50ML OF 50% DW IV FOR... UD PRN IV 05/21/17 23:00 06/20/17 22:59 Glucagon (Glucagon Inj) 1 mg UD PRN SQ 05/21/17 23:00 06/20/17 22:59 Aspirin (Ecotrin Tab) 81 mg QAM PO 05/22/17 08:00 06/21/17 07:59 05/29/17 09:06 81 MG Atorvastatin Calcium (Lipitor Tab) 80 mg DAILY PO 05/22/17 08:00 06/21/17 07:59 05/29/17 09:05 80 MG Hydrocortisone (Cortef Tab) 20 mg QAM PO 05/22/17 08:00 06/21/17 08:59 05/29/17 09:03 20 MG Ranitidine HCl (zANTac TAB) 150 mg BID PO 05/22/17 08:00 06/21/17 08:59 05/29/17 09:05 150 MG Vancomycin HCl (Vancomycin Oral Soln) 125 mg Taper BID PO 05/22/17 09:00 06/17/17 07:59 05/29/17 09:01 125 MG Miscellaneous Information (Order Awaiting Action) 1 ea QS N/A 05/22/17 08:00 06/21/17 07:59 Lactobacillus Acidophilus (Floranex Tab) 4 tab DAILY PO 05/22/17 08:00 06/21/17 07:59 05/29/17 09:05 4 TAB Mirtazapine (Remeron Tab) 30 mg HS PRN PO 05/21/17 23:00 06/20/17 22:59 05/29/17 00:50 30 MG Ondansetron HCl (Zofran Inj) 4 mg Q6H PRN IV 05/21/17 23:00 06/20/17 22:59 05/28/17 07:55 4 MG Promethazine HCl 12.5 mg/Sodium Chloride 50.5 ml @ 204 mls/hr Q6H PRN IV 05/21/17 23:00 06/20/17 22:59 Nicotine (Nicoderm Cq 7 Mg Patch) 1 patch QAM TD 05/22/17 08:00 06/21/17 08:59 05/23/17 08:42 1 PATCH Miscellaneous (Remove Nicoderm Patch) 1 ea HS N/A 05/22/17 21:00 06/21/17 20:59 05/23/17 22:04 1 EA Heparin Sodium (Porcine) (Heparin Sq 5000 Unit/0.5ml) 5,000 unit Q8 SQ 05/22/17 06:00 06/21/17 05:59 05/29/17 06:18 5,000 UNIT Hydrocortisone (Cortef Tab) 10 mg DAILY@1800 PO 05/22/17 18:00 06/21/17 17:59 05/28/17 18:24 10 MG Raspberry (Raspberry Syrup 5ml Cup) 5 ml Taper BID PO 05/22/17 08:00 06/17/17 07:59 7/7/17 09:01 5 ML Tiotropium [place] (Spiriva Handihaler Inhaler) 1 puff DAILY INH 05/23/17 08:00 06/22/17 07:59 05/29/17 09:09 1 PUFF Miscellaneous Information (Consult Glycemic Management Pharmacy) 1 ea UD PRN N/A 05/23/17 07:51 06/22/17 07:50 Lisinopril (Zestril Tab) 5 mg QAM PO 05/24/17 08:00 06/23/17 07:59 05/29/17 09:02 5 MG Isosorbide Mononitrate (Imdur Ext Rel Tab) 60 mg QAM PO 05/25/17 08:00 06/24/17 07:59 05/29/17 09:04 60 MG Fluoxetine HCl (Prozac Cap) 30 mg QAM PO 05/25/17 08:00 06/21/17 08:59 05/29/17 09:02 30 MG Oxycodone/ Acetaminophen (Percocet 7.5-325MG Tab) 1 tab Q6H PRN PO 05/24/17 17:15 06/07/17 17:14 05/29/17 06:34 1 TAB Insulin Glargine (Lantus Solostar Pen) 7 units BID SC 05/25/17 08:15 06/24/17 08:14 05/29/17 08:55 7 UNITS Clonidine HCl (Catapres Tab) 0.05 mg BID PO 05/25/17 20:00 06/24/17 19:59 05/29/17 09:04 0.05 MG Clonazepam (Klonopin Tab) 0.5 mg BID PRN PO 05/25/17 17:45 06/24/17 17:44 05/29/17 09:09 0.5 MG Cholestyramine Resin (Questran Powder Light) 4 gm BID@0900,2300 PO 05/27/17 10:30 06/22/17 22:59 05/29/17 10:09 4 GM Diphenoxylate HCl/ Atropine (Lomotil Tab) 2 tab TID PO 05/27/17 14:00 06/21/17 07:59 05/29/17 09:04 2 TAB Menthol (Nice Lilian) 1 lilian TID PRN PO 05/27/17 10:15 06/26/17 10:14 05/27/17 10:35 1 LILIAN Hydromorphone HCl (Dilaudid Inj) 0.5 mg Q6H PRN IV 05/28/17 18:00 06/04/17 22:59 Amitriptyline HCl (Elavil Tab) 25 mg HS PO 05/28/17 22:00 06/27/17 21:59 05/28/17 20:50 25 MG Bismuth Subsalicylate (Pepto-Bismol Susp) 30 ml QID PO 05/28/17 17:00 06/27/17 16:59 05/29/17 09:07 30 ML Potassium Chloride (Klor-Con Tab) 40 meq Q3H PO 05/29/17 10:15 05/29/17 13:16 05/29/17 10:53 40 MEQ Magnesium Sulfate 1 gm/Prmx 100 ml @ 100 mls/hr Q1H IV 05/29/17 10:45 05/29/17 12:44 05/29/17 10:52 100 MLS/HR Objective Vital Signs Date Time Temp Pulse Resp B/P (MAP) Pulse Ox O2 Delivery O2 Flow Rate FiO2 05/29/17 08:00 Room Air 05/29/17 08:00 36.8 58 18 127/75 (92) 97 05/29/17 00:00 Room Air 05/28/17 22:59 36.7 44 16 134/62 (86) 98 Room Air 05/28/17 16:05 100 Room Air 05/28/17 15:55 36.7 57 18 118/74 (89) 99 Room Air Physical Exam General Appearance: WD/WN, no apparent distress Eyes: normal inspection, PERRL, EOMI Neck: supple, no JVD, trachea midline Respiratory/Chest: lungs clear, normal breath sounds, no respiratory distress, no accessory muscle use Cardiovascular: regular rate, rhythm, no gallop, no murmur Abdomen: normal bowel sounds, soft, + tenderness (LLQ) Extremities: normal inspection, no pedal edema, no calf tenderness Neurologic/Psych: alert, normal mood/affect, oriented x 3 Skin: normal color, no jaundice, no rash Laboratory Results Last 24 Hours Test 05/28/17 18:04 05/28/17 20:34 05/29/17 07:31 05/29/17 07:59 Bedside Glucose 90 mg/dl 125 mg/dl 95 mg/dl Sodium Level 144 mmol/L Potassium Level 3.2 mmol/L Chloride Level 113 mmol/L Carbon Dioxide Level 22 mmol/L Anion Gap 9.0 mmol/L Blood Urea Nitrogen 10 mg/dl Creatinine 1.20 mg/dl Est Creatinine Clear Calc Drug Dose 64.5 ml/min Estimated GFR () 74.7 Estimated GFR (Non- 64.4 BUN/Creatinine Ratio 8.6 Random Glucose 83 mg/dl Calcium Level 9.3 mg/dl Magnesium Level 1.6 mg/dl Assessment and Plan Patient is a 62 year old male with acute on chronic diarrhea with hx of collagenous colitis and ulcerative colitis, Cdiff positive on 05/02 but since then repeat stool study negative. He had been on Questran, Lomotil, Vancomycin taper, Xifaxan, back on Octreotide as well. 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 Still ongoing diarrhea per pt's report though volume decreasing. Stool collection for amt and fecal fat pending. Discussed with him possibility of DC soon. Informed him that renal function is normal, no signs of dehydration, or major electrolyte imbalance. He is also tolerating diet, and per his report stool volume decreasing. Thus we can make further med adjustments in outpt setting. Having him on prolonger hospitalization stay also puts him at risk for having nosocomial infections. He got upset, stating he's still dehydrated, and that at home his is recovering with complicated breast cancer thus cannot clean up after him all the time. - DC IVF - Continue current diet, advised him to stop jello and popsicles, start more solid diet. - Continue Clonidine 0.05mg BID; Questran 4g BID, Lomotil to 2 tab TID; Continue Amitriptyline 25mg qHS, Peptobismol 30mg QID, Vancomycin taper (125 mg orally twice daily for 7 days ;125 mg orally once daily for 7 days ; 125 mg orally every other day for 7 days ;125 mg orally every 3 days for 14 days). DC Octreotide. DC Remeron if using this for sleep and ok with psych. Will also initiate Entecort 9mg daily (pt aware of risks w steroid use; though did admit he had good success of diarrhea control with this med thus we'll re-start it). - F/U fecal fat. - Defer inpt flex sigmoidscopy. ATTESTATION: I have performed a history and physical examination of this patient and reviewed the electronic record. Specifically, I discussed the pros and cons of restarting budesonide with the patient, particularly given the presence of untoward steroid effects from previous exposure. I have discussed the case with NICOLAS Queen. The above note reflects my findings, conclusions, and recommendations. Andrea Pacheco MD
[2017-05-29] MEDS ORDERED: BUDESONIDE EC 3 MG CAP PO ONE (14:11)
--- NOTE | 2017-05-29 14:57 | Progress Note ---
Internal Med Progress Note Date of Service: May 29, 2017. Provider Documentation: SUBJECTIVE: Patient continues to have diarrhea, but slight improvement with decrease in volume. Does have chronic abdominal pain. No fever, chills, nausea, vomiting. Frustrated about his condition. OBJECTIVE: Vital Signs-as noted below Exam: General-AAOX3, no distress Neck-Supple, No JVD Lungs-AEBE, no wheezing Heart-S1, S2 normal, no murmurs Abdomen-Soft, tenderness all over, no rigidity, BS present Extremities-No edema Lab data as noted below. ASSESSMENT & PLAN: 62 year old M with chronic diarrhea and recent c diff in setting of UC and GI issues for 15 years presents with worsened non-bloody diarrhea after discharge two weeks ago. ACUTE ON CHRONIC DIARRHEA - Have hx of ulcerative colitis , chronic diarrhea- multiple times on a daily basis. C diff was positive in 04/2017. Came back for worsening of diarrhea. -Continues to have diarrhea, slight improvement though. -Continue Clonidine 0.05mg BID; Questran 4g BID, Lomotil to 2 tab TID; Continue Amitriptyline 25mg qHS, Peptobismol 30mg QID, Vancomycin taper (125 mg orally twice daily for 7 days ;125 mg orally once daily for 7 days ; 125 mg orally every other day for 7 days ;125 mg orally every 3 days for 14 days). DC Octreotide. Initiated Entecort 9mg daily (pt aware of risks w steroid use, but has worked in past, so GI restarted it today) - F/U 24 hour fecal fat/volume. No plans for flex sigmoidoscopy -Work up- C diff negative outpatient and in hospital, CT - no acute findings, Stool- 24 hour for fecal fat and volume- follow up. -Appreciate GI inputs CRISTIAN, Pre renal- Resolved -Off IVF -Encouraged PO hydration HYPOMAGNESEMIA -Replaced. Started Mg Oxide 400 mg PO BID daily -Monitor DEPRESSION/ANXIETY -Continue with Prozac. Discontinued Mirtazapine -Decreased Clonazepam to 0.25 mg PO BID PRN for anxiety as patient gets a bit sedated SINUS BRADYCARDIA -HR does drop down to 40s at rest. -Metoprolol discontinued PAIN MANAGEMENT -On percocet 7.5 mg/325 mg q 6 hours PRN for abdominal pain. IV Dilaudid- discouraged use as takes it on and off. -Explained him about side effects from these medications and would avoid it if possible. -Wanted me to increase frequency of percocet and Clonopine--> will AVOID any increase in dose as no justifiable reason. Understands and agrees with plan -Discussed with as well- agrees with plan CHRONIC ADRENAL INSUFFICIENCY -Continue with cortef ULCERATIVE COLITIS -Takes hydrocortisone regularly to control flares and in setting of chronic adrenal insufficiency. Recent colonoscopy was 02/20/17 while he was hospitalized for a UC flare. Cont per GI. HX OF CAD -stable, no active ACS or concerning symptoms. Cont medical management with ASA , statin, Lopressor, Imdur. TTE normal during last hospitalization and Cardiology evaluated him. DM II: Lantus/ISS per pharmacy recs. COPD-not oxygen-dependent and is stable without wheezing on exam. Cont Spiriva and Nicoderm patch to control cravings to smoke. TOBACCO ABUSE DISORDER-Nicotine replacement given. IRON DEFICIENCY ANEMIA DVT PROPHYLAXIS : Heparin SQ FULL CODE DISPOSITION Likely discharge in 1-2 days Frustrated about his condition and concerned that at home wont be able to take care of him as she has breast carcinoma. Discussed that if no signs of dehydration, electrolyte abnormalities, should be able to discharge home with close follow up outpatient. GI on board and closely following patient Vital Signs: Date Time Temp Pulse Resp B/P (MAP) Pulse Ox O2 Delivery O2 Flow Rate FiO2 05/29/17 08:00 Room Air 05/29/17 08:00 36.8 58 18 127/75 (92) 97 05/29/17 00:00 Room Air 05/28/17 22:59 36.7 44 16 134/62 (86) 98 Room Air 05/28/17 16:05 100 Room Air 05/28/17 15:55 36.7 57 18 118/74 (89) 99 Room Air Lab Results: Results Past 24 Hours Test 05/28/17 18:04 05/28/17 20:34 05/29/17 07:31 05/29/17 07:59 Range/Units Bedside Glucose 90 125 95 70-99 mg/dl Sodium Level 144 136-145 mmol/L Potassium Level 3.2 3.5-5.1 mmol/L Chloride Level 113 98-107 mmol/L Carbon Dioxide Level 22 21-32 mmol/L Anion Gap 9.0 3-11 mmol/L Blood Urea Nitrogen 10 7-18 mg/dl Creatinine 1.20 0.60-1.40 mg/dl Est Creatinine Clear Calc Drug Dose 64.5 ml/min Estimated GFR () 74.7 Estimated GFR (Non- 64.4 BUN/Creatinine Ratio 8.6 10-20 Random Glucose 83 70-99 mg/dl Calcium Level 9.3 8.5-10.1 mg/dl Magnesium Level 1.6 1.8-2.4 mg/dl
[2017-05-29 15:16] VITALS: BP 119/69; PULSE 53; TEMP 36.4; O2SAT 99
[2017-05-29 16:02] VITALS: O2SAT 100
[2017-05-29] MEDS: MAGNESIUM OXIDE 400 MG TAB PO SCH (21:05)
[2017-05-29] MEDS: AMITRIPTYLINE HCL 25 MG TAB PO SCH (21:09)
[2017-05-29 23:29] VITALS: BP 119/68; PULSE 50; TEMP 36.4; O2SAT 99
[2017-05-30] MEDS: HEPARIN SOD 5000 UNIT/0.5 ML CARP SQ SCH (05:15)
[2017-05-30] MEDS: OXYCODONE/ACETAMINOPHEN 7.5-325 TAB PO PRN ×3 (05:16→22:21)
[2017-05-30 07:37] VITALS: BP 105/70; PULSE 67; TEMP 36.4; O2SAT 99
[2017-05-30] MEDS: BISMUTH SUBSALICYLATE SUSP PO SCH ×4 (08:00→20:25)
[2017-05-30] MEDS: NICOTINE 7 MG/24 HR TDSY TD SCH (08:00)
[2017-05-30] MEDS: INSULIN GLARGINE SOLOSTAR 100 UNITS/ML 3 ML PEN SC SCH ×2 (08:17→20:36)
[2017-05-30] MEDS: INSULIN ASPART 100 UNITS/ML 3 ML PEN SC SCH ×4 (08:18→22:19)
[2017-05-30] MEDS: RASPBERRY SYRUP 5 ML UDP PO SCH ×2 (08:18→20:25)
[2017-05-30] MEDS: VANCOMYCIN HCL 125 MG/2.5ML SOLN PO SCH ×2 (08:19→20:26)
[2017-05-30] MEDS: FLUOXETINE HCL 10 MG CAP PO SCH (08:21)
[2017-05-30] MEDS: CLONIDINE HCL 0.1 MG TAB PO SCH ×2 (08:21→20:21)
[2017-05-30] MEDS: LACTOBACILLUS ACIDOPHILUS (FLORANEX) TAB PO SCH (08:23)
[2017-05-30] MEDS: ISOSORBIDE MONONITRATE 60 MG TABCR PO SCH (08:23)
[2017-05-30] MEDS: RANITIDINE HCL 150 MG TAB PO SCH ×2 (08:23→20:26)
[2017-05-30] MEDS: BUDESONIDE EC 3 MG CAP PO SCH (08:24)
[2017-05-30] MEDS: DIPHENOXYLATE/ATROPINE 2.5/0.025MG TAB PO SCH ×3 (08:24→20:22)
[2017-05-30] MEDS: ASPIRIN 81 MG ECTAB PO SCH (08:25)
[2017-05-30] MEDS: LISINOPRIL 5 MG TAB PO SCH (08:25)
[2017-05-30] MEDS: ATORVASTATIN 40 MG TAB PO SCH (08:25)
[2017-05-30] MEDS: TIOTROPIUM BROMIDE 5 PUFF/90 MCG INH INH SCH (08:25)
[2017-05-30] MEDS: HYDROCORTISONE 10 MG TAB PO SCH ×2 (08:26→17:31)
[2017-05-30] MEDS: MAGNESIUM OXIDE 400 MG TAB PO SCH ×2 (08:26→20:23)
[2017-05-30] MEDS: POTASSIUM CHLORIDE 20 MEQ TABCR PO SCH (08:27)
[2017-05-30 08:31] VITALS: BP 136/85; PULSE 61
[2017-05-30] MEDS: CHOLESTYRAMINE LIGHT 4 GM PKT PO SCH ×2 (09:33→22:24)
[2017-05-30] MEDS ORDERED: POTASSIUM CHLORIDE 10 MEQ TABCR PO STA (12:01)
--- NOTE | 2017-05-30 12:05 | Progress Note ---
Internal Med Progress Note Date of Service: May 30, 2017. Provider Documentation: SUBJECTIVE: Patient continues to have diarrhea, but slight improvement with decrease in volume. C/o sore throat. Does have chronic abdominal pain. No fever, chills, nausea, vomiting. Frustrated about his condition. OBJECTIVE: Vital Signs-as noted below Exam: General-AAOX3, no distress Neck-Supple, No JVD HEENT- Mild oral thrush + Lungs-AEBE, no wheezing Heart-S1, S2 normal, no murmurs Abdomen-Soft, tenderness all over, no rigidity, BS present Extremities-No edema Lab data as noted below. ASSESSMENT & PLAN: 62 year old M with chronic diarrhea and recent c diff in setting of UC and GI issues for 15 years presents with worsened non-bloody diarrhea after discharge two weeks ago. ACUTE ON CHRONIC DIARRHEA - Have hx of ulcerative colitis , chronic diarrhea- multiple times on a daily basis. C diff was positive in 04/2017. Came back for worsening of diarrhea. -Continues to have diarrhea, slight improvement though. -Continue Clonidine 0.05mg BID; Questran 4g BID, Lomotil to 2 tab TID; Continue Amitriptyline 25mg qHS, Peptobismol 30mg QID, Vancomycin taper (125 mg orally twice daily for 7 days ;125 mg orally once daily for 7 days ; 125 mg orally every other day for 7 days ;125 mg orally every 3 days for 14 days). DC Octreotide. Initiated Entecort 9mg daily (pt aware of risks w steroid use, but has worked in past, so GI restarted it on 05/29/17 - F/U 24 hour fecal fat/volume. No plans for flex sigmoidoscopy -Work up- C diff negative outpatient and in hospital, CT - no acute findings, Stool- 24 hour for fecal fat and volume- follow up. -Appreciate GI inputs HYPOMAGNESEMIA/HYPOKALEMIA Secondary to above. -Replaced. Started kdur 20 meq, Mg Oxide 400 mg PO BID daily -Monitor CRISTIAN, Pre renal- Resolved -Off IVF -Encouraged PO hydration DEPRESSION/ANXIETY -Continue with Prozac. Discontinued Mirtazapine -Decreased Clonazepam to 0.25 mg PO BID PRN for anxiety as patient gets a bit sedated SINUS BRADYCARDIA -HR does drop down to 40s at rest. -Metoprolol discontinued PAIN MANAGEMENT -On percocet 7.5 mg/325 mg q 6 hours PRN for abdominal pain. IV Dilaudid- discouraged use as takes it on and off. -Explained him about side effects from these medications and would avoid it if possible. -Wanted me to increase frequency of percocet and Clonopine--> will AVOID any increase in dose as no justifiable reason. Understands and agrees with plan -Discussed with as well- agrees with plan CHRONIC ADRENAL INSUFFICIENCY -Continue with cortef ULCERATIVE COLITIS -Takes hydrocortisone regularly to control flares and in setting of chronic adrenal insufficiency. Recent colonoscopy was 02/20/17 while he was hospitalized for a UC flare. Cont per GI. HX OF CAD -stable, no active ACS or concerning symptoms. Cont medical management with ASA , statin, Lopressor, Imdur. TTE normal during last hospitalization and Cardiology evaluated him. DM II: Lantus/ISS per pharmacy recs. COPD-not oxygen-dependent and is stable without wheezing on exam. Cont Spiriva and Nicoderm patch to control cravings to smoke. TOBACCO ABUSE DISORDER-Nicotine replacement given. IRON DEFICIENCY ANEMIA DVT PROPHYLAXIS : Heparin SQ FULL CODE DISPOSITION Likely discharge in 1-2 days Frustrated about his condition and concerned that at home wont be able to take care of him as she has breast carcinoma. Discussed that if no signs of dehydration, electrolyte abnormalities, should be able to discharge home with close follow up outpatient. GI on board and closely following patient Vital Signs: Date Time Temp Pulse Resp B/P (MAP) Pulse Ox O2 Delivery O2 Flow Rate FiO2 05/30/17 08:31 61 136/85 (102) 05/30/17 08:00 Room Air 05/30/17 07:37 36.4 67 20 105/70 (82) 99 05/30/17 00:00 Room Air 05/29/17 23:29 36.4 50 20 119/68 (85) 99 Room Air 05/29/17 16:02 100 Room Air 05/29/17 15:16 36.4 53 18 119/69 (86) 99 Room Air Lab Results: Results Past 24 Hours Test 05/29/17 16:05 05/29/17 20:02 05/30/17 07:13 Range/Units Bedside Glucose 202 127 176 70-99 mg/dl
[2017-05-30] MEDS ORDERED: MAGNESIUM SULFATE 1GM / D5W 1 GM in PREMIXED IN D5W 100 ML IV ONE (12:30)
[2017-05-30 14:59] VITALS: BP 124/75; PULSE 66; TEMP 36.4; O2SAT 99
--- NOTE | 2017-05-30 16:10 | Gastroenterology Progress Note ---
Progress Note Date of Service: May 30, 2017 Subjective Pt evaluation today including: conversation w/ patient, physical exam "Frustrated" still having loose bm's, but the trend has declined. Entocort has been re-initiated. Medications Current Inpatient Medications Medications (Trade) Dose Ordered Sig/Tisha Route Start Time Stop Time Status Last Admin Dose Admin Miscellaneous (Iv Fluids Completed) 1 ea PRN PRN N/A 05/21/17 22:30 05/21/18 22:29 Acetaminophen (Tylenol Tab) 650 mg Q4H PRN PO 05/21/17 23:00 06/20/17 22:59 Insulin Aspart (novoLOG ASPART) SLIDING SCALE If C... ACHS SC 05/22/17 06:30 06/21/17 06:59 05/30/17 13:14 10 UNITS Glucose (Glucose 40% Gel) 15-30 GRAMS 15 GRAMS... UD PRN PO 05/21/17 23:00 06/20/17 22:59 Glucose (Glucose Chew Tab) 4-8 Tablets 4 Tabl... UD PRN PO 05/21/17 23:00 06/20/17 22:59 Dextrose (Dextrose 50% 50ML Syringe) 25-50ML OF 50% DW IV FOR... UD PRN IV 05/21/17 23:00 06/20/17 22:59 Glucagon (Glucagon Inj) 1 mg UD PRN SQ 05/21/17 23:00 06/20/17 22:59 Aspirin (Ecotrin Tab) 81 mg QAM PO 05/22/17 08:00 06/21/17 07:59 05/30/17 08:25 81 MG Atorvastatin Calcium (Lipitor Tab) 80 mg DAILY PO 05/22/17 08:00 06/21/17 07:59 05/30/17 08:25 80 MG Hydrocortisone (Cortef Tab) 20 mg QAM PO 05/22/17 08:00 06/21/17 08:59 05/30/17 08:26 20 MG Ranitidine HCl (zANTac TAB) 150 mg BID PO 05/22/17 08:00 06/21/17 08:59 05/30/17 08:23 150 MG Vancomycin HCl (Vancomycin Oral Soln) 125 mg Taper BID PO 05/22/17 09:00 06/17/17 07:59 05/30/17 08:19 125 MG Miscellaneous Information (Order Awaiting Action) 1 ea QS N/A 05/22/17 08:00 06/21/17 07:59 Lactobacillus Acidophilus (Floranex Tab) 4 tab DAILY PO 05/22/17 08:00 06/21/17 07:59 05/30/17 08:23 4 TAB Ondansetron HCl (Zofran Inj) 4 mg Q6H PRN IV 05/21/17 23:00 06/20/17 22:59 05/28/17 07:55 4 MG Promethazine HCl 12.5 mg/Sodium Chloride 50.5 ml @ 204 mls/hr Q6H PRN IV 05/21/17 23:00 06/20/17 22:59 Nicotine (Nicoderm Cq 7 Mg Patch) 1 patch QAM TD 05/22/17 08:00 06/21/17 08:59 05/23/17 08:42 1 PATCH Miscellaneous (Remove Nicoderm Patch) 1 ea HS N/A 05/22/17 21:00 06/21/17 20:59 05/23/17 22:04 1 EA Hydrocortisone (Cortef Tab) 10 mg DAILY@1800 PO 05/22/17 18:00 06/21/17 17:59 05/29/17 19:19 10 MG Raspberry (Raspberry Syrup 5ml Cup) 5 ml Taper BID PO 05/22/17 08:00 06/17/17 07:59 05/30/17 08:18 5 ML Tiotropium [place] (Spiriva Handihaler Inhaler) 1 puff DAILY INH 05/23/17 08:00 06/22/17 07:59 05/30/17 08:25 1 PUFF Miscellaneous Information (Consult Glycemic Management Pharmacy) 1 ea UD PRN N/A 05/23/17 07:51 06/22/17 07:50 Lisinopril (Zestril Tab) 5 mg QAM PO 05/24/17 08:00 06/23/17 07:59 05/30/17 08:25 5 MG Isosorbide Mononitrate (Imdur Ext Rel Tab) 60 mg QAM PO 05/25/17 08:00 06/24/17 07:59 05/30/17 08:23 60 MG Fluoxetine HCl (Prozac Cap) 30 mg QAM PO 05/25/17 08:00 06/21/17 08:59 05/30/17 08:21 30 MG Oxycodone/ Acetaminophen (Percocet 7.5-325MG Tab) 1 tab Q6H PRN PO 05/24/17 17:15 06/07/17 17:14 05/30/17 14:12 1 TAB Insulin Glargine (Lantus Solostar Pen) 7 units BID SC 05/25/17 08:15 06/24/17 08:14 05/30/17 08:17 7 UNITS Clonidine HCl (Catapres Tab) 0.05 mg BID PO 05/25/17 20:00 06/24/17 19:59 05/30/17 08:21 0.05 MG Cholestyramine Resin (Questran Powder Light) 4 gm BID@0900,2300 PO 05/27/17 10:30 06/22/17 22:59 05/30/17 09:33 4 GM Diphenoxylate HCl/ Atropine (Lomotil Tab) 2 tab TID PO 05/27/17 14:00 06/21/17 07:59 05/30/17 13:08 2 TAB Menthol (Nice Killian) 1 killian TID PRN PO 05/27/17 10:15 06/26/17 10:14 05/27/17 10:35 1 KILLIAN Hydromorphone HCl (Dilaudid Inj) 0.5 mg Q6H PRN IV 05/28/17 18:00 06/04/17 22:59 Amitriptyline HCl (Elavil Tab) 25 mg HS PO 05/28/17 22:00 06/27/17 21:59 05/29/17 21:09 25 MG Bismuth Subsalicylate (Pepto-Bismol Susp) 30 ml QID PO 05/28/17 17:00 06/27/17 16:59 05/30/17 12:07 30 ML Budesonide (Entocort EC Cap) 9 mg QAM PO 05/30/17 08:00 06/29/17 07:59 05/30/17 08:24 9 MG Clonazepam (Klonopin Tab) 0.25 mg BID PRN PO 05/29/17 20:00 06/24/17 17:44 05/29/17 21:04 0.25 MG Magnesium Oxide (Mag-Ox Tab) 400 mg BID PO 05/29/17 20:00 06/28/17 19:59 05/30/17 08:26 400 MG Potassium Chloride (Klor-Con Tab) 20 meq DAILY PO 05/30/17 08:00 06/29/17 07:59 05/30/17 08:27 20 MEQ Nystatin (Mycostatin Susp) 5 ml QID PO 05/30/17 17:00 06/09/17 16:59 Objective Vital Signs Date Time Temp Pulse Resp B/P (MAP) Pulse Ox O2 Delivery O2 Flow Rate FiO2 05/30/17 16:00 Room Air 05/30/17 14:59 36.4 66 20 124/75 (91) 99 05/30/17 08:31 61 136/85 (102) 05/30/17 08:00 Room Air 05/30/17 07:37 36.4 67 20 105/70 (82) 99 05/30/17 00:00 Room Air 05/29/17 23:29 36.4 50 20 119/68 (85) 99 Room Air Physical Exam General Appearance: WD/WN Eyes: normal inspection Cardiovascular: regular rate, rhythm, no edema Abdomen: normal bowel sounds, non tender, soft Extremities: normal range of motion, non-tender, normal inspection Neurologic/Psych: form tamper II-XII nml as tested Laboratory Results Last 24 Hours Test 05/29/17 20:02 05/30/17 07:13 05/30/17 11:07 Bedside Glucose 127 mg/dl 176 mg/dl 165 mg/dl Assessment and Plan Patient is a 62 year old male with acute on chronic diarrhea with hx of refractory collagenous colitis and possibly overlap ulcerative colitis, Cdiff positive on 05/02 but since then repeat stool study negative. He had been on Questran, Lomotil, Vancomycin taper, Xifaxan, back on Octreotide as well. Still ongoing diarrhea per pt's report. - DC IVF - Continue current diet, advised him to stop jello and popsicles, start more solid diet. - Continue Clonidine 0.05mg BID; Questran 4g BID, Lomotil to 2 tab TID; Continue Amitriptyline 25mg qHS, Peptobismol 30mg QID, Vancomycin taper (125 mg orally twice daily for 7 days ;125 mg orally once daily for 7 days ; 125 mg orally every other day for 7 days ;125 mg orally every 3 days for 14 days). DC Octreotide. DC Remeron if using this for sleep and ok with psych. Entecort 9mg daily (pt aware of risks w steroid use; though did admit he had good success of diarrhea control with this med thus we'll re-start it). - F/U fecal fat. - Defer inpt flex sig
[2017-05-30] MEDS: NYSTATIN SUSP 500,000 U/5 ML UDC PO SCH ×2 (17:31→20:24)
[2017-05-30] MEDS: CLONAZEPAM 0.5 MG TAB PO PRN (22:20)
[2017-05-30] MEDS: AMITRIPTYLINE HCL 25 MG TAB PO SCH (22:20)
[2017-05-30 23:02] VITALS: BP 134/73; PULSE 46; TEMP 36.4; O2SAT 99
[2017-05-31 07:00] LABS: BASO % 0.1 %; BASO ABS # 0.01 K/uL (0-0.2); COMPLETE YES; EOS % 0.6 %; HEMATOCRIT 35.3 % (42-52); IG% 0.6 %; LYMPH % 19.1 %; MEAN CELL VOLUME 89.4 fL (80-100); MEAN CORPUSCULAR HEMOGLOBIN 29.6 pg (25-34); MEAN CORPUSCULAR HGB CONC 33.1 g/dl (32-36); MEAN PLATELET VOLUME 10.9 fL (7.4-10.4); MONO % 6.9 %; NEUT % 72.7 %; PLATELET COUNT 160 K/uL (130-400); RED BLOOD COUNT 3.95 M/uL (4.7-6.1); WHITE BLOOD COUNT 11.52 K/uL (4.8-10.8)
[2017-05-31 07:26] LABS: BUN/CREATININE RATIO 11.7 (10-20); CALCIUM 8.7 mg/dl (8.5-10.1); CREATININE 1.1 mg/dl (0.60-1.40); MAGNESIUM 1.8 mg/dl (1.8-2.4); POTASSIUM 3.8 mmol/L (3.5-5.1)
[2017-05-31 07:31] VITALS: BP 162/88; PULSE 52; TEMP 36.5; O2SAT 99
[2017-05-31] MEDS: BISMUTH SUBSALICYLATE SUSP PO SCH (07:32)
[2017-05-31 07:35] VITALS: BP 152/88; PULSE 68
[2017-05-31] MEDS: NICOTINE 7 MG/24 HR TDSY TD SCH (07:35)
[2017-05-31] MEDS: MAGNESIUM OXIDE 400 MG TAB PO SCH (07:36)
[2017-05-31] MEDS: NYSTATIN SUSP 500,000 U/5 ML UDC PO SCH (07:36)
[2017-05-31] MEDS: LACTOBACILLUS ACIDOPHILUS (FLORANEX) TAB PO SCH (07:37)
[2017-05-31] MEDS: ATORVASTATIN 40 MG TAB PO SCH (07:37)
[2017-05-31] MEDS: ISOSORBIDE MONONITRATE 60 MG TABCR PO SCH (07:37)
[2017-05-31] MEDS: ASPIRIN 81 MG ECTAB PO SCH (07:37)
[2017-05-31] MEDS: DIPHENOXYLATE/ATROPINE 2.5/0.025MG TAB PO SCH (07:37)
[2017-05-31] MEDS: POTASSIUM CHLORIDE 20 MEQ TABCR PO SCH (07:38)
[2017-05-31] MEDS: BUDESONIDE EC 3 MG CAP PO SCH (07:39)
[2017-05-31] MEDS: LISINOPRIL 5 MG TAB PO SCH (07:39)
[2017-05-31] MEDS: FLUOXETINE HCL 10 MG CAP PO SCH (07:40)
[2017-05-31] MEDS: HYDROCORTISONE 10 MG TAB PO SCH (07:40)
[2017-05-31] MEDS: RANITIDINE HCL 150 MG TAB PO SCH (07:41)
[2017-05-31] MEDS: CLONIDINE HCL 0.1 MG TAB PO SCH (07:41)
[2017-05-31] MEDS: VANCOMYCIN HCL 125 MG/2.5ML SOLN PO SCH (07:43)
[2017-05-31] MEDS: RASPBERRY SYRUP 5 ML UDP PO SCH (07:43)
[2017-05-31] MEDS: TIOTROPIUM BROMIDE 5 PUFF/90 MCG INH INH SCH (07:43)
[2017-05-31] MEDS: OXYCODONE/ACETAMINOPHEN 7.5-325 TAB PO PRN (07:44)
[2017-05-31] MEDS: INSULIN ASPART 100 UNITS/ML 3 ML PEN SC SCH (09:03)
[2017-05-31] MEDS: INSULIN GLARGINE SOLOSTAR 100 UNITS/ML 3 ML PEN SC SCH (09:04)
[2017-05-31] MEDS: CHOLESTYRAMINE LIGHT 4 GM PKT PO SCH (09:05)
--- NOTE | 2017-05-31 10:49 | Progress Note ---
Internal Med Progress Note Date of Service: May 31, 2017. Provider Documentation: SUBJECTIVE: Patient's diarrhea has improved- consistency, volume better though persistent. C/o sore throat with no nasal congestion, cough, SOB, chest pain, fever, chills Does have chronic abdominal pain. No nausea, vomiting. OBJECTIVE: Vital Signs-as noted below Exam: General-AAOX3, no distress Neck-Supple, No JVD Lungs-AEBE, no wheezing Heart-S1, S2 normal, no murmurs Abdomen-Soft, tenderness all over, no rigidity, BS present Extremities-No edema Lab data as noted below. ASSESSMENT & PLAN: 62 year old M with chronic diarrhea and recent c diff in setting of UC and GI issues for 15 years presents with worsened non-bloody diarrhea after discharge two weeks ago. ACUTE ON CHRONIC DIARRHEA - Have hx of ulcerative colitis , chronic diarrhea- multiple times on a daily basis. C diff was positive in 04/2017. Came back for worsening of diarrhea. -Continues to have diarrhea, but improvement in consistency, volume. -Continue Clonidine 0.05mg BID; Questran 4g BID, Lomotil to 2 tab TID; Continue Amitriptyline 25mg qHS, Peptobismol 30mg QID, Vancomycin taper (125 mg orally twice daily for 7 days ;125 mg orally once daily for 7 days ; 125 mg orally every other day for 7 days ;125 mg orally every 3 days for 14 days). DC Octreotide. Initiated Entecort 9mg daily (pt aware of risks w steroid use, but has worked in past, so GI restarted it on 05/29/17 - F/U 24 hour fecal fat/volume. No plans for flex sigmoidoscopy -Work up- C diff negative outpatient and in hospital, CT - no acute findings, Stool- 24 hour for fecal fat and volume- follow up. -Discussed with GI today--> Continues to have diarrhea with some improvement. Will discharge with above rx and to follow up closely outpatient with GI. No more inpatient rx to offer. HYPOMAGNESEMIA/HYPOKALEMIA- Resolved Secondary to above. -Replaced. Continue with kdur 20 meq, Mg Oxide 400 mg PO BID daily as chronic diarrhea -Monitor outpatient CRISTIAN, Pre renal- Resolved -Off IVF -Encouraged PO hydration DEPRESSION/ANXIETY -Continue with Prozac. Discontinued Mirtazapine -Decreased Clonazepam to 0.25 mg PO BID PRN for anxiety as patient gets a bit sedated SINUS BRADYCARDIA -HR does drop down to 40s at rest, but mainly in 50-60s -Metoprolol discontinued PAIN MANAGEMENT -On percocet 7.5 mg/325 mg q 6 hours PRN for abdominal pain. IV Dilaudid- discouraged use as takes it on and off. -Explained him about side effects from these medications and would avoid it if possible. -Wanted me to increase frequency of percocet and Clonopine--> will AVOID any increase in dose as no justifiable reason. Understands and agrees with plan. -Will give percocet 10 tabs on discharge to be used only as needed. Understands and agrees to use it only if needed. -Discussed with as well- agrees with plan CHRONIC ADRENAL INSUFFICIENCY -Continue with cortef ULCERATIVE COLITIS -Takes hydrocortisone regularly to control flares and in setting of chronic adrenal insufficiency. Recent colonoscopy was 02/20/17 while he was hospitalized for a UC flare. Cont per GI. HX OF CAD -stable, no active ACS or concerning symptoms. Cont medical management with ASA , statin, Lopressor, Imdur. TTE normal during last hospitalization and Cardiology evaluated him. DM II: Lantus/ISS per pharmacy recs. COPD-not oxygen-dependent and is stable without wheezing on exam. Cont Spiriva and Nicoderm patch to control cravings to smoke. TOBACCO ABUSE DISORDER-Nicotine replacement given. IRON DEFICIENCY ANEMIA DVT PROPHYLAXIS : Heparin SQ FULL CODE DISPOSITION Discussed about discharge plan with patient, by bedside. Discussed plan with Dr Brian farias Agreeable Okay to discharge him home today Vital Signs: Date Time Temp Pulse Resp B/P (MAP) Pulse Ox O2 Delivery O2 Flow Rate FiO2 05/31/17 08:00 Room Air 05/31/17 07:35 68 152/88 (109) 05/31/17 07:31 36.5 52 18 162/88 (112) 99 05/31/17 00:00 Room Air 05/30/17 23:02 36.4 46 20 134/73 (93) 99 Room Air 05/30/17 20:00 Room Air 05/30/17 16:00 Room Air 05/30/17 14:59 36.4 66 20 124/75 (91) 99 Lab Results: Results Past 24 Hours Test 05/30/17 11:07 05/30/17 16:01 05/30/17 20:22 05/31/17 06:16 Range/Units Bedside Glucose 165 168 140 70-99 mg/dl White Blood Count 11.52 4.8-10.8 K/uL Red Blood Count 3.95 4.7-6.1 M/uL Hemoglobin 11.7 14.0-18.0 g/dL Hematocrit 35.3 42-52 % Mean Corpuscular Volume 89.4 80-100 fL Mean Corpuscular Hemoglobin 29.6 25-34 pg Mean Corpuscular Hemoglobin Concent 33.1 32-36 g/dl Platelet Count 160 130-400 K/uL Mean Platelet Volume 10.9 7.4-10.4 fL Neutrophils (%) (Auto) 72.7 % Lymphocytes (%) (Auto) 19.1 % Monocytes (%) (Auto) 6.9 % Eosinophils (%) (Auto) 0.6 % Basophils (%) (Auto) 0.1 % Neutrophils # (Auto) 8.37 1.4-6.5 K/uL Lymphocytes # (Auto) 2.20 1.2-3.4 K/uL Monocytes # (Auto) 0.80 0.11-0.59 K/uL Eosinophils # (Auto) 0.07 0-0.5 K/uL Basophils # (Auto) 0.01 0-0.2 K/uL RDW Standard Deviation 51.4 36.4-46.3 fL RDW Coefficient of Variation 15.6 11.5-14.5 % Immature Granulocyte % (Auto) 0.6 % Immature Granulocyte # (Auto) 0.07 0.00-0.02 K/uL Sodium Level 141 136-145 mmol/L Potassium Level 3.8 3.5-5.1 mmol/L Chloride Level 110 98-107 mmol/L Carbon Dioxide Level 23 21-32 mmol/L Anion Gap 8.0 3-11 mmol/L Blood Urea Nitrogen 13 7-18 mg/dl Creatinine 1.10 0.60-1.40 mg/dl Est Creatinine Clear Calc Drug Dose 70.4 ml/min Estimated GFR () 82.9 Estimated GFR (Non- 71.6 BUN/Creatinine Ratio 11.7 10-20 Random Glucose 164 70-99 mg/dl Calcium Level 8.7 8.5-10.1 mg/dl Magnesium Level 1.8 1.8-2.4 mg/dl Test 05/31/17 07:23 Range/Units Bedside Glucose 149 70-99 mg/dl
[2017-05-31] MEDS ORDERED: CHOL4POW11 PO (10:53)
[2017-05-31] MEDS ORDERED: AMT25 PO (10:53)
[2017-05-31] MEDS ORDERED: PPTBS PO (10:53)
[2017-05-31] MEDS ORDERED: OXYC7.5T62 PO (10:53)
[2017-05-31] MEDS ORDERED: ENT3 PO (10:53)
[2017-05-31] MEDS ORDERED: DIPH-416 PO (10:53)
[2017-05-31] MEDS ORDERED: MGNO400 PO (10:53)
[2017-05-31] MEDS ORDERED: CTP1 PO (10:53)
--- NOTE | 2017-05-31 10:54 | Discharge Instructions ---
Discharge Instructions Date of Service May 31, 2017. Admission Reason for Admission: Abdominal Pain Discharge Discharge Diagnosis / Problem: 1. Acute on chronic diarrhea 2. Acute kidney injury Discharge Goals Goal(s): Improve disease control, Prevent Disease Progression Activity Recommendations Activity Limitations: resume your previous activity (as tolerated) . Instructions / Follow-Up Instructions / Follow-Up MEDICATION CHANGES: 1. Increase Questran to 4 gram BID (Twice a day) 2. Increase Lomotil to 2 tabs TID (three times a day) 3. New medication: Amitriptyline 25 mg at bedtime as instructed 4. New medication: Budesonide 3 caps daily (Entocort) till instructed by GI 5. New medication: Clonidine 0.05 mg PO BID 6. New medication: Pepto bismol 30 ml QID 7. Vancomycin taper to be continued- 125 mg daily x 7 days followed by 125 mg every other day for 7 days followed by 125 mg q 3 days x 14 days. 8. Discontinued Metoprolol 50 mg PO BID as Heart rate in range of 50s with it dropping to 40s at rest at times 8. Percocet 7/3.25 mg q 8 hours as needed only for severe pain 9. Supplements: Magnesium 400 mg bid for Mg supplement MONITOR -Potassium, Magnesium, creatinine outpatient with chronic diarrhea QUIT -Smoking -Alcohol FOLLOW UP 1. Follow up with Dr Ojeda on 06/05/17 at 3:00 PM. Please be there at 2:45 PM for appt 2. Follow up with Dr Keith this week. They will call you for appt date/ time Current Hospital Diet Patient's current hospital diet: Diabetes Type 2 Diet, Low Lactose Diet Discharge Diet Recommended Diet: Low Fat Diet, Low Lactose Diet (as tolerated) Pending Studies Studies pending at discharge: no Laboratory Results Hemoglobin A1c Test 05/24/17 06:30 Range/Units Estimated Average Glucose 171 mg/dl Hemoglobin A1c 7.6 H 4.5-5.6 % Medical Emergencies . Who to Call and When: Medical Emergencies: If at any time you feel your situation is an emergency, please call 911 immediately. . Non-Emergent Contact Non-Emergency issues call your: Primary Care Provider . . "Provider Documentation" section prepared by Anjali Ruiz. . VTE Core Measure Inpt VTE Proph given/why not?: Unfractionated heparin SQ
--- NOTE | 2017-05-31 11:05 | Discharge Summary ---
Discharge Summary Date of Service May 31, 2017. Discharge Summary Admission Date: May 22, 2017 at 23:10 Discharge Date: May 31, 2017 Principal Diagnosis: 1. Acute on chronic diarrhea 2. Hx of Ulcerative colitis 3. CRISTIAN, pre renal 4. Hypomagnesemia, Hypokalemia Secondary Diagnoses/Problems: 1. Chronic adrenal insufficiency 2. DM III 3. COPD 4. HTN 5. Anxiety/Depression 6. Iron deficiency anemia 7. Tobacco abuse disorder 8. Chronic alcohol drinker Procedures: -CT abd/pelvis -CXR/Abd x ray -IV Fluidis -Electrolyte replacement Consultations: GI, pain, psych Pending Studies/Follow-Up: Instructions / Follow-Up Instructions / Follow-Up MEDICATION CHANGES: 1. Increase Questran to 4 gram BID (Twice a day) 2. Increase Lomotil to 2 tabs TID (three times a day) 3. New medication: Amitriptyline 25 mg at bedtime as instructed 4. New medication: Budesonide 3 caps daily (Entocort) till instructed by GI 5. New medication: Clonidine 0.05 mg PO BID 6. New medication: Pepto bismol 30 ml QID 7. Vancomycin taper to be continued- 125 mg daily x 7 days followed by 125 mg every other day for 7 days followed by 125 mg q 3 days x 14 days. 8. Discontinued Metoprolol 50 mg PO BID as Heart rate in range of 50s with it dropping to 40s at rest at times 8. Percocet 7/3.25 mg q 8 hours as needed only for severe pain 9. Supplements: Magnesium 400 mg bid for Mg supplement MONITOR -Potassium, Magnesium, creatinine outpatient with chronic diarrhea FOLLOW UP 1. Follow up with Dr Ojeda on 06/05/17 at 3:00 PM. Please be there at 2:45 PM for appt 2. Follow up with Dr Keith this week. They will call you for appt date/ time Medication Reconciliation New Medications: Amitriptyline HCl (Amitriptyline HCl) 25 Mg Tab 25 MG PO HS for 30 Days, TAB Bismuth Subsalicylate (Pepto-Bismol Susp) 30 Ml/524 Mg Susp 30 ML PO QID for 30 Days Budesonide (Budesonide) 3 Mg Cap 9 MG PO QAM for 10 Days, CAP Clonidine HCl (Clonidine HCl) 0.1 Mg Tab 0.05 MG PO BID for 30 Days, TAB Magnesium Oxide (Magnesium-Oxide) 400 Mg Tab 400 MG PO BID for 30 Days, TAB Oxycodone/Acetaminophen 7.5MG/325MG (Endocet 7.5MG/325MG) 1 Tab Tab 1 TAB PO Q8H PRN for severe pain only, #10 TAB Changed Medications: Cholestyramine (Questran) 4 Gm Pow 4 GM PO BID for 30 Days (Changed from: HS) mix with liquid Diphenoxylate/Atropine (Lomotil) Tab 2 TAB PO TID for 30 Days, TAB (Changed from: 1 TAB) Continued Medications: Albuterol Hfa (Ventolin Hfa) 200 Puffs/59492 Mcg Aers 3-4 PUFFS INH QID PRN for sob/wheezing, #1 INHALER Albuterol Sulf (Proventil 0.083% 2.5MG/3ML) 2.5 Mg/3 Ml Nebu 2.5 MG INH QID PRN for Wheezing, EA Alprazolam (Xanax) 0.5 Mg Tab 0.5 MG PO HS PRN for Sleep, TAB Aspirin (Aspirin Chewable) 81 Mg Chew 81 MG PO QAM Atorvastatin (Lipitor) 80 Mg Tab 1 TAB PO DAILY for 30 Days, #30 TAB 5 Refills Dexamethasone Sod Phos (Dexamethasone Sodium Phos) 4 Mg/Ml Inj 1 ML IM DIRECTED PRN for emergency treatment Fluoxetine HCl (Fluoxetine HCl) 20 Mg Cap 20 MG PO QAM, #90 Fluticasone Furoate-Vilanterol (Breo Ellipta) 1 Inh Inh 1 INHA PO DAILY Hydrocortisone (Cortef) 10 Mg Tab 20 MG PO QAM, TAB 2 TAB LETS EVERY MORNINIG. INCREASE DIRECTED WITH ILLNESS Hydrocortisone (Cortef) 10 Mg Tab 10 MG PO QPM 1 TABLET EVERY EVENING. INCREASE DIRECTED FOR ILLNESS Insulin Glargine (Lantus) 100 Unit/Ml Inj 10-20 UNITS SC UD, VIAL USE DIRECTED Insulin Lispro (Human) (Humalog) 100 Unit/Ml Inj SC ACHS SLIDING SCALE, MAX UNITS DAILY, 40 UNITS Ipratropium-Albuterol (Duoneb) 3 Ml Nebu 1 TREATMENT INH QID PRN for sob/wheezing, #30 INHA Isosorbide Mononitrate Ext Rel (Imdur Ext Rel) 60 Mg Ertab 60 MG PO QAM, TAB Lisinopril (Zestril) 5 Mg Tab 5 MG PO QAM, TAB Potassium Chloride (Klor-Con M20) 20 Meq Tabcr 20 MEQ PO DAILY Probiotic Product (Probiotic) 1 Cap Cap 1 CAP PO DAILY Ranitidine Hcl (Zantac) 150 Mg Tab 150 MG PO BID, TAB Tiotropium [place] (Spiriva Handihaler) 30 Puff/540 Mcg Aerp 1 CAP INH DAILY, INHALER Vancomycin Hcl (Vancomycin) 125 Mg Cap 125 MG PO UD START 05/19/2017, ONE 3X DAILY FOR 7 DAYS, ONE 2X DAILY FOR 7 DAYS, ONE DAILY FOR 7 DAYS, ONE QOD FOR 7 DAYS. Discontinued Medications: Hydroxyzine Hcl (Atarax) 25 Mg Tab 50 MG PO HS PRN for ANXIETY/SLEEPING, TAB Metoprolol Tartrate (Lopressor) (Lopressor) 50 Mg Tab 50 MG PO BID, #60 Mirtazapine Soltab (Remeron Soltab) 30 Mg Soltab 30 MG PO HS, TAB Oxycodone/Acetaminophen 5MG/325MG (Percocet 5MG/325MG) Tab 1 TABLET PO Q6H PRN for Pain, TAB PAIN Admission Information HPI (per Admitting provider): Recent confinement 2 weeks ago for sepsis secondary C. difficile. Patient discharged on PO vancomycin course. Patient claims he still had bad abdominal pain and diarrhea upon discharge from hospital. Seen at the emergency room last week for these symptoms. Repeat C. difficile negative No acute process on CT. Patient had follow-up with [facility] a few days ago. Diarrhea thought to be multifactorial as per note - microscopic colitis, C. difficile, DM diarrhea, pancreatic insufficiency. Vanco taper, antidiarrheal, pancreatic enzyme, cholestyramine prescribed. Patient admits to worsening of achy lower abdominal pain symptoms since different from usual bowel abdominal pain. Some nausea and emesis. Continuous diarrhea greater than 5 times a day. 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 Admits to not being able to take his pills yesterday because of being sick.. Physical Exam (per Admitting): General Appearance: + pertinent finding (anxious uncomfortable, recumbent on his right side) Head: normocephalic Eyes: normal inspection Neck: supple Respiratory/Chest: + decreased breath sounds Cardiovascular: regular rate, rhythm Abdomen/GI: + tenderness, + pertinent finding (hypogastrium) Extremities/Musculoskelatal: non-tender Neurologic/Psych: alert, oriented x 3 Hospital Course 62 year old M with chronic diarrhea and recent c diff in setting of UC and GI issues for 15 years presents with worsened non-bloody diarrhea after discharge two weeks ago. ACUTE ON CHRONIC DIARRHEA - Have hx of ulcerative colitis , chronic diarrhea- multiple times on a daily basis. C diff was positive in 04/2017. Came back for worsening of diarrhea. -Continues to have diarrhea, but improvement in consistency, volume. -Continue Clonidine 0.05mg BID; Questran 4g BID, Lomotil to 2 tab TID; Continue Amitriptyline 25mg qHS, Peptobismol 30mg QID, Vancomycin taper (125 mg orally twice daily for 7 days ;125 mg orally once daily for 7 days ; 125 mg orally every other day for 7 days ;125 mg orally every 3 days for 14 days). DC Octreotide. Initiated Entecort 9mg daily (pt aware of risks w steroid use, but has worked in past, so GI restarted it on 05/29/17 - F/U 24 hour fecal fat/volume. No plans for flex sigmoidoscopy -Work up- C diff negative outpatient and in hospital, CT - no acute findings, Stool- 24 hour for fecal fat and volume- follow up. -Discussed with GI today--> Continues to have diarrhea with some improvement. Will discharge with above rx and to follow up closely outpatient with GI. No more inpatient rx to offer. HYPOMAGNESEMIA/HYPOKALEMIA- Resolved Secondary to above. -Replaced. Continue with kdur 20 meq, Mg Oxide 400 mg PO BID daily as chronic diarrhea -Monitor outpatient CRISTIAN, Pre renal- Resolved -Off IVF -Encouraged PO hydration DEPRESSION/ANXIETY -Continue with Prozac. Discontinued Mirtazapine -Decreased Clonazepam to 0.25 mg PO BID PRN for anxiety as patient gets a bit sedated SINUS BRADYCARDIA -HR does drop down to 40s at rest, but mainly in 50-60s -Metoprolol discontinued PAIN MANAGEMENT -On percocet 7.5 mg/325 mg q 6 hours PRN for abdominal pain. IV Dilaudid- discouraged use as takes it on and off. -Explained him about side effects from these medications and would avoid it if possible. -Wanted me to increase frequency of percocet and Clonopine--> will AVOID any increase in dose as no justifiable reason. Understands and agrees with plan. -Will give percocet 10 tabs on discharge to be used only as needed. Understands and agrees to use it only if needed. -Discussed with as well- agrees with plan CHRONIC ADRENAL INSUFFICIENCY -Continue with cortef ULCERATIVE COLITIS -Takes hydrocortisone regularly to control flares and in setting of chronic adrenal insufficiency. Recent colonoscopy was 02/20/17 while he was hospitalized for a UC flare. Cont per GI. HX OF CAD -stable, no active ACS or concerning symptoms. Cont medical management with ASA , statin, Lopressor, Imdur. TTE normal during last hospitalization and Cardiology evaluated him. DM II: Lantus/ISS per pharmacy recs. COPD-not oxygen-dependent and is stable without wheezing on exam. Cont Spiriva and Nicoderm patch to control cravings to smoke. TOBACCO ABUSE DISORDER-Nicotine replacement given. IRON DEFICIENCY ANEMIA DVT PROPHYLAXIS : Heparin SQ FULL CODE DISPOSITION Discussed about discharge plan with patient, by bedside. Discussed plan with Dr Brian farias Agreeable Okay to discharge him home today Total time spent on discharge = 45 minutes This includes examination of the patient, discharge planning, medication reconciliation, and communication with other providers. Discharge Instructions Discharge Diagnosis / Problem: 1. Acute on chronic diarrhea 2. Acute kidney injury Discharge Goals Goal(s): Improve disease control, Prevent Disease Progression Activity Recommendations Activity Limitations: resume your previous activity (as tolerated) . Instructions / Follow-Up Instructions / Follow-Up MEDICATION CHANGES: 1. Increase Questran to 4 gram BID (Twice a day) 2. Increase Lomotil to 2 tabs TID (three times a day) 3. New medication: Amitriptyline 25 mg at bedtime as instructed 4. New medication: Budesonide 3 caps daily (Entocort) till instructed by GI 5. New medication: Clonidine 0.05 mg PO BID 6. New medication: Pepto bismol 30 ml QID 7. Vancomycin taper to be continued- 125 mg daily x 7 days followed by 125 mg every other day for 7 days followed by 125 mg q 3 days x 14 days. 8. Percocet 7/3.25 mg q 8 hours as needed only for severe pain 9. Supplements: Magnesium 400 mg bid for Mg supplement MONITOR -Potassium, Magnesium, creatinine outpatient with chronic diarrhea QUIT -Smoking -Alcohol FOLLOW UP 1. Follow up with Dr Ojeda on 06/05/17 at 3:00 PM. Please be there at 2:45 PM for appt 2. Follow up with Dr Keith this week. They will call you for appt date/ time Current Hospital Diet Patient's current hospital diet: Diabetes Type 2 Diet, Low Lactose Diet Discharge Diet Recommended Diet: Low Fat Diet, Low Lactose Diet (as tolerated) Pending Studies Studies pending at discharge: no Laboratory Results Hemoglobin A1c Test 05/24/17 06:30 Range/Units Estimated Average Glucose 171 mg/dl Hemoglobin A1c 7.6 H 4.5-5.6 % Medical Emergencies . Who to Call and When: Medical Emergencies: If at any time you feel your situation is an emergency, please call 911 immediately. . Non-Emergent Contact Non-Emergency issues call your: Primary Care Provider . . "Provider Documentation" section prepared by Anjali Ruiz. . VTE Core Measure Inpt VTE Proph given/why not?: Unfractionated heparin SQ
[2017-05-31] MEDS ORDERED: POTA1POW PO (11:17)
[2017-05-31 11:23] VITALS: BP 152/88; PULSE 68; TEMP 36.5; O2SAT 99
[2017-06-03 02:19] LABS: FECAL FAT QUANTITATIVE 105 g/24 h (<7)
== END 2017-05-31 11:52 | disposition home or self-care (01) | DRG 386 ==
LOC: C.EDB 18:29 → C.MS4W 22:04 → ENRESERV 22:11 → EDBEDREQ 22:14 → OBSVTOIN 05-22 23:10
PROVIDERS: ADMIT Hospitalist; ATTEND Internal Medicine
DX: K51.90 Ulcerative colitis, unspecified, without complications (principal); N17.9 Acute kidney failure, unspecified; F33.9 Major depressive disorder, recurrent, unspecified; R19.7 Diarrhea, unspecified; E83.42 Hypomagnesemia; E87.6 Hypokalemia; N18.9 Chronic kidney disease, unspecified; E11.22 Type 2 diabetes mellitus with diabetic chronic kidney disease; J44.9 Chronic obstructive pulmonary disease, unspecified; I12.9 Hypertensive chronic kidney disease with stage 1 through stage 4 chronic kidney disease, or unspecified chronic kidney disease; F41.9 Anxiety disorder, unspecified; E78.00 Pure hypercholesterolemia, unspecified; F43.20 Adjustment disorder, unspecified; D50.9 Iron deficiency anemia, unspecified; F17.210 Nicotine dependence, cigarettes, uncomplicated; R00.1 Bradycardia, unspecified; I95.9 Hypotension, unspecified; E87.5 Hyperkalemia; Z95.5 Presence of coronary angioplasty implant and graft; Z72.89 Other problems related to lifestyle; Z79.82 Long term (current) use of aspirin; Z79.899 Other long term (current) drug therapy; Z79.4 Long term (current) use of insulin; Z79.52 Long term (current) use of systemic steroids; Z79.891 Long term (current) use of opiate analgesic

== ENCOUNTER 2017-06-25 16:04 | Inpatient (IN) | payer OTHER ==
[~2017-06-25] VITALS: Ht 175.3 cm; Wt 74.0 kg
[~2017-06-25 16:04] MED LIST changes: +ALBINS/ INH; +AMT25 PO; -ATR25 PO; +CHOL4POW11 PO; +CTP1 PO; +DIPH-416 PO; +ENT3 PO; -FLUC100T4 PO; -FLUO20CA34 PO; +FLUO20CA36 PO; -LPR50X PO; +MGNO400 PO; -MIRT30TA2 PO; +MISCCAP80 PO; -NYSS5 PO; +OXYC7.5T62 PO; +POTA1POW PO; -POTA20TA13 PO; +PPTBS PO; -RASPBERRY SYRUP 5 ML UDP PO SCH; -VANC1CAP3 PO; +VANC5CAP PO
[2017-06-25] MEDS ORDERED: CTP1CL PO (16:33)
[2017-06-25] MEDS ORDERED: SODIUM CHLORIDE 0.9% 1000ML 1,000 ML IV STA (16:36)
--- NOTE | 2017-06-25 16:41 | EMERGENCY ROOM VISIT NOTE ---
History Report prepared by Tisha: Dinorah Zhang Under the Supervision of: Dr. Andrea Hernandez D.O. First contact with patient: 16:24 Chief Complaint: WEAKNESS Stated Complaint: WEAK-BP DROPPING History of Present Illness The patient is a 62 year old male who presents to the Emergency Room with complaints of constant weakness beginning 3 days ago. The patient has a history of adrenal insufficiency and has been increasingly weak over the last 3 days. Today he used his Decadron and after no improvement of his symptoms he went to see his doctor and was sent in to the ED for low blood pressure and abnormal labs. The patient states that that he was seen here 3 weeks ago and was admitted to the hospital. Since that visit, he states that his diarrhea has not resolved and worsened significantly 3 days ago. He complains of abdominal pain and dizziness. He denies any fever, chest pain, shortness of breath, neck pain, and leg swelling. The patient states that he smokes cigarettes. He notes that he has multiple bug bites on his legs that are red. Source of History: patient Onset: 3 days ago Position: other (global) Quality: other (weakness) Timing: constant Associated Symptoms: + abdominal pain, No fevers, No neck pain, No chest pain, No SOB Note: Pt complains of dizziness. Review of Systems See HPI for pertinent positives & negatives. A total of 10 systems reviewed and were otherwise negative. Past Medical & Surgical Medical Problems: (1) Adrenal insufficiency (2) C. difficile diarrhea (3) CAD (coronary artery disease) (4) COPD (chronic obstructive pulmonary disease) (5) Avelina's syndrome (6) Depression with anxiety (7) DM type 2 (diabetes mellitus, type 2) (8) HLD (hyperlipidemia) (9) HTN (hypertension) (10) Microscopic colitis Family History Cancer Diabetes mellitus Heart disease Hypertension Social History Smoking Status: Current Every Day Smoker Alcohol Use: occasionally Drug Use: none Marital Status: Housing Status: lives with family Occupation Status: retired, disabled Current/Historical Medications Scheduled Aspirin (Aspirin Chewable), 81 MG PO QAM Atorvastatin (Lipitor), 1 TAB PO DAILY Cholestyramine (Questran), 4 GM PO BID Diphenoxylate/Atropine (Lomotil), 2 TAB PO TID Fluoxetine HCl (Fluoxetine HCl), 20 MG PO QAM Fluticasone Furoate-Vilanterol (Breo Ellipta), 1 INHA PO DAILY Hydrocortisone (Cortef), 1 TAB PO DAILYBD Hydrocortisone (Cortef), 2 TAB PO DAILY Insulin Glargine (Lantus), 10-20 UNITS SC UD Insulin Lispro (Human) (Humalog), SC ACHS Isosorbide Mononitrate Ext Rel (Imdur Ext Rel), 60 MG PO QAM Lisinopril (Zestril), 5 MG PO QAM Magnesium Oxide (Magnesium-Oxide), 400 MG PO BID Pancrelipase (Lipase-Protease- (Creon), 2 CAP PO WM Pancrelipase (Lipase-Protease- (Creon), 1 CAP PO SNACKS Potassium Chloride Pwd (Klor-Con Pwd), 20 MEQ PO DAILY Ranitidine Hcl (Zantac), 150 MG PO BID Tiotropium [place] (Spiriva Handihaler), 1 CAP INH DAILY Scheduled PRN Albuterol Hfa (Ventolin Hfa), 3-4 PUFFS INH QID PRN for sob/wheezing Albuterol Sulf (Proventil 0.083% 2.5MG/3ML), 2.5 MG INH QID PRN for Wheezing Alprazolam (Xanax), 0.5 MG PO HS PRN for Sleep Dexamethasone Sod Phos (Dexamethasone Sodium Phos), 1 ML IM DIRECTED PRN for emergency treatment Hydroxyzine Hcl (Atarax), 50 MG PO HS PRN for Insomnia Ipratropium-Albuterol (Duoneb), 1 TREATMENT INH QID PRN for sob/wheezing Mirtazapine (Remeron), 1 TAB PO HS PRN for Insomnia Oxycodone/Acetaminophen 7.5MG/325MG (Oxycodone/Acetaminophen 7.5MG/325MG), 1 TAB PO Q8 PRN for Pain Allergies Coded Allergies: Azathioprine (Verified Adverse Reaction, Unknown, RENAL COMPLICATIONS, 06/25) Physical Exam Vital Signs Date Time Temp Pulse Resp B/P (MAP) Pulse Ox O2 Delivery O2 Flow Rate FiO2 06/25/17 17:10 102 20 114/83 95 06/25/17 17:07 76 112/75 99 121/88 104 114/83 06/25/17 16:46 86 16 121/89 96 06/25/17 16:42 97 Room Air 06/25/17 16:35 82 06/25/17 16:20 36.7 101 20 129/83 98 Room Air Physical Exam GENERAL: Patient is awake, alert, mildly anxious appearing but comfortable. EYES: The conjunctivae are clear. The pupils are round and reactive. EARS, NOSE, MOUTH AND THROAT: The nose is without any evidence of any deformity. Mucous membranes are dry tongue is midline NECK: The neck is nontender and supple. RESPIRATORY: Normal respiratory effort is noted there is no evidence of wheezing rhonchi or rales CARDIOVASCULAR: Regular rate and rhythm noted there no murmurs rubs or gallops normal S1 normal S2 GASTROINTESTINAL: The abdomen is mildly distended but soft. No guarding or rigidity noted. Bowel sounds are present in all quadrants. Abdomen is nontender MUSCULOSKELETAL/EXTREMITIES: There is no evidence of gross deformity full range of motion is noted in the hips and shoulders. Trace pedal edema bilaterally, insect bites noted on bilateral extremities. SKIN: There is no obvious evidence of any rash. There are no petechiae, pallor or cyanosis noted. NEUROLOGIC: Patient is awake alert and oriented x3 strength is symmetric patellar reflexes are 2+ bilaterally Medical Decision & Procedures ER Provider Diagnostic Interpretation: X-ray results as stated below per interpretation by me and the radiologist. ABDOMEN 2VIEW W/PA CHEST RTN FINDINGS: The soft tissues, psoas shadows, renal outlines and intestinal gas pattern appear normal. There is no evidence for bowel obstruction. There is no evidence for free intraperitoneal air. No abnormal abdominal calcifications are seen. A frontal view of the chest was performed and is unremarkable. IMPRESSION: Normal study. The above report was generated using voice recognition software. It may contain grammatical, syntax or spelling errors. Electronically signed by: Drew Chow M.D. 06/25/2017 5:58 PM Dictated Date/Time: 06/25/2017 5:57 PM Laboratory Results Test 06/25/17 16:30 06/25/17 17:07 Immature Granulocyte % (Auto) 0.3 % White Blood Count 8.59 K/uL (4.8-10.8) Red Blood Count 5.03 M/uL (4.7-6.1) Hemoglobin 15.4 g/dL (14.0-18.0) Hematocrit 45.3 % (42-52) Mean Corpuscular Volume 90.1 fL (80-100) Mean Corpuscular Hemoglobin 30.6 pg (25-34) Mean Corpuscular Hemoglobin Concent 34.0 g/dl (32-36) Platelet Count 263 K/uL (130-400) Mean Platelet Volume 10.6 fL (7.4-10.4) Neutrophils (%) (Auto) 83.4 % Lymphocytes (%) (Auto) 14.6 % Monocytes (%) (Auto) 1.5 % Eosinophils (%) (Auto) 0.1 % Basophils (%) (Auto) 0.1 % Neutrophils # (Auto) 7.16 K/uL (1.4-6.5) Lymphocytes # (Auto) 1.25 K/uL (1.2-3.4) Monocytes # (Auto) 0.13 K/uL (0.11-0.59) Eosinophils # (Auto) 0.01 K/uL (0-0.5) Basophils # (Auto) 0.01 K/uL (0-0.2) Immature Granulocyte # (Auto) 0.03 K/uL (0.00-0.02) Prothrombin Time 10.2 SECONDS (9.0-12.0) Prothromb Time International Ratio 1.0 (0.9-1.1) Activated Partial Thromboplast Time 26.1 SECONDS (21.0-31.0) Partial Thromboplastin Ratio 1.0 Total Bilirubin 0.6 mg/dl (0.2-1) Direct Bilirubin 0.2 mg/dl (0-0.2) Aspartate Amino Transf (AST/SGOT) 26 U/L (15-37) Alanine Aminotransferase (ALT/SGPT) 27 U/L (12-78) Alkaline Phosphatase 118 U/L (45-117) Total Creatine Kinase 45 U/L (39-308) Creatine Kinase MB 1.1 ng/ml (0.5-3.6) Creatine Kinase MB Ratio 2.4 (0-3.0) Troponin I < 0.015 ng/ml (0-0.045) Total Protein 8.2 gm/dl (6.4-8.2) Albumin 3.9 gm/dl (3.4-5.0) Amylase Level 20 U/L (25-115) Lipase 143 U/L (73-393) Thyroid Stimulating Hormone (TSH) 0.431 uIu/ml (0.300-4.500) Free Thyroxine 1.01 ng/dl (0.80-1.60) Random Cortisol 2.38 mcg/dl Ionized Calcium 1.37 mmol/l (1.12-1.32) Parathyroid Hormone (Intact) < 5.5 pg/mL (11.1-79.5) Laboratory results per my review. Medications Administered Medications (Trade) Dose Ordered Sig/Tisha Route Start Time Stop Time Status Last Admin Dose Admin Sodium Chloride 1,000 ml @ 999 mls/hr Q1H1M STAT IV 06/25/17 16:36 06/25/17 17:36 DC 06/25/17 16:59 999 MLS/HR Magnesium Sulfate (Magnesium Sulfate) 1 gm NOW STAT IV 06/25/17 17:00 06/25/17 17:01 DC 06/25/17 17:24 1 GM Morphine Sulfate (MoRPHine SULFATE INJ) 4 mg Q15M PRN IV 06/25/17 17:15 06/25/17 19:34 DC 06/25/17 17:26 4 MG Ondansetron HCl (Zofran Inj) 4 mg NOW STAT IV 06/25/17 17:01 06/25/17 17:03 DC 06/25/17 17:24 4 MG ECG Indication: weakness Rate (beats per minute): 76 Rhythm: normal sinus Findings: nonspecific-ST abn, no ectopy Comparison ECG Date: 05/22/17 Change: no significant change ED Course 1624: The patient was evaluated in room C6. A complete history and physical examination were performed. 1635: NSS 1,000 ml @ 999 mls/hr IV. 1652: I discussed the patient's case with Madelyn Burnette PA-C of [facility]. The patient will be evaluated for further management. 1657: Upon reevaluation, the patient is hemodynamically stable. I discussed results and treatment plan with the patient. He verbalizes agreement and understanding. I spoke with Madelyn Burnette PA-C of the [facility] hospitalist service. The patient will be evaluated for further management and care. 1700: Magnesium Sulfate 1gm IV. 1701: Zofran Inj 4mg IV. 1715: Morphine Sulfate 4mg PRN IV pain. Medical Decision Differential diagnosis: Etiologies such as metabolic, infection, hypo/hyperglycemia, electrolyte abnormalities, cardiac sources, intracerebral event, toxicologic, neurologic, as well as others were entertained. Nursing notes reviewed. Additional history is obtained from the patient's significant other. The patient was sent to the emergency department by his primary care physician. I received a phone call regarding the patient's condition prior to his arrival from his primary care physician. The patient is a 62-year-old male who has a long medical history including adrenal insufficiency who is been expressing more weakness in usual. He also has a chronic diarrheal illness which was worked up previously and appears to be increasing over the last 3-4 days. Because of this the patient required his outpatient rescue steroids for his adrenal insufficiency. He's been trying to increase his fluid intake but he went to see his primary care physician today and was found have orthostatic hypotension. Laboratory studies were also found to reveal a low magnesium as well as other electrolyte imbalances which could be consistent with the patient's underlying condition but also could be consistent with a parathyroid or other endocrine disorder. The patient was treated with IV fluids IV pain medicine and IV magnesium replacement in the emergency department. I discussed his case with the on-call [facility] is. They've agreed to evaluate the patient in emergency department for further management and disposition. Medication Reconcilliation Current Medication List: was personally reviewed by me Blood Pressure Screening Patient's blood pressure: Normal blood pressure Blood pressure disposition: Did not require urgent referral Consults Time Called: 1648 Consulting Physician: [facility] Returned Call: [phone] I discussed the patient's case with Madelyn Burnette PA-C of [facility]. The patient will be evaluated for further management. Impression Primary Impression: Weakness Additional Impressions: Adrenal insufficiency Hypercalcemia Hypermagnesemia Hypophosphatemia Orthostatic hypotension Scribe Attestation The scribe's documentation has been prepared under my direction and personally reviewed by me in its entirety. I confirm that the note above accurately reflects all work, treatment, procedures, and medical decision making performed by me. Departure Information Dispostion Being Evaluated By Hospitalist Referrals Tony Lin D.O. (PCP) Patient Instructions My [facility] Problem Qualifiers
[2017-06-25 16:58] LABS: BASO % 0.1 %; BASO ABS # 0.01 K/uL (0-0.2); COMPLETE YES; EOS % 0.1 %; HEMATOCRIT 45.3 % (42-52); IG% 0.3 %; LYMPH % 14.6 %; LYMPH ABS # 1.25 K/uL (1.2-3.4); MEAN CELL VOLUME 90.1 fL (80-100); MEAN CORPUSCULAR HEMOGLOBIN 30.6 pg (25-34); MEAN PLATELET VOLUME 10.6 fL (7.4-10.4); MONO % 1.5 %; NEUT % 83.4 %; PLATELET COUNT 263 K/uL (130-400); RED BLOOD COUNT 5.03 M/uL (4.7-6.1); WHITE BLOOD COUNT 8.59 K/uL (4.8-10.8)
[2017-06-25] MEDS ORDERED: PANC24002 PO (16:58)
[2017-06-25] MEDS ORDERED: PANC6000 PO (16:58)
[2017-06-25] MEDS ORDERED: MAGNESIUM SULFATE 1GM / D5W 1 GM BAG IV STA (17:00)
[2017-06-25] MEDS ORDERED: ONDANSETRON INJ 2 MG/ML 2 ML VIAL IV STA (17:01)
[2017-06-25] MEDS ORDERED: DEXAMETHASONE (17:02)
[2017-06-25 17:07] LABS: PROTHROMBIN TIME (PATIENT) 10.2 SECONDS (9.0-12.0)
[2017-06-25] MEDS ORDERED: MoRPHine SULFATE 4 MG/ML 1 ML CARP\\VIAL IV PRN (17:15)
[2017-06-25 17:19] LABS: ALT/SGPT 27 U/L (12-78); AMYLASE 20 U/L (25-115); BLOOD UREA NITROGEN 12 mg/dl (7-18); BUN/CREATININE RATIO 8.3 (10-20); CALCIUM 11.1 mg/dl (8.5-10.1); CARBON DIOXIDE 25 mmol/L (21-32); CHLORIDE 105 mmol/L (98-107); GLUCOSE 272 mg/dl (70-99); MAGNESIUM 1.6 mg/dl (1.8-2.4); POTASSIUM 4.8 mmol/L (3.5-5.1); SODIUM 135 mmol/L (136-145)
[2017-06-25 17:35] LABS: ALKALINE PHOSPHATASE 118 U/L (45-117); AST/SGOT 26 U/L (15-37); CKMB/CK RATIO 2.4 (0-3.0); PHOSPHORUS 1.5 mg/dl (2.5-4.9); THYROID STIMULATING HORMONE 0.431 uIu/ml (0.300-4.500)
[2017-06-25] MEDS ORDERED: ACETAMINOPHEN 325 MG TAB PO PRN (17:45)
[2017-06-25] MEDS ORDERED: OXYC7.5T66 PO (17:56)
--- NOTE | 2017-06-25 17:59 | DIAGNOSTIC IMAGING REPORT ---
ABDOMEN 2VIEW W/PA CHEST RTN CLINICAL HISTORY: ABDOMINAL PAIN/GI pain COMPARISON STUDY: 05/21/2017 FINDINGS: The soft tissues, psoas shadows, renal outlines and intestinal gas pattern appear normal. There is no evidence for bowel obstruction. There is no evidence for free intraperitoneal air. No abnormal abdominal calcifications are seen. A frontal view of the chest was performed and is unremarkable. IMPRESSION: Normal study. The above report was generated using voice recognition software. It may contain grammatical, syntax or spelling errors. Electronically signed by: Drew Chow M.D. 06/25/2017 5:58 PM Dictated Date/Time: 06/25/2017 5:57 PM
[2017-06-25] MEDS ORDERED: SODIUM PHOSPHATE 3 MMOL/1 ML INFUSION IV STA (18:10)
[2017-06-25] MEDS ORDERED: HYDR-3126 PO (18:19)
[2017-06-25] MEDS ORDERED: MIRT30TA PO (18:19)
[2017-06-25] MEDS ORDERED: GLUCOSE 40% GEL 15 GM TUBE PO PRN (18:30)
[2017-06-25] MEDS ORDERED: GLUCOSE 10 TABS/TUBE PO PRN (18:30)
[2017-06-25] MEDS ORDERED: GLUCAGON FOR INJ 1 MG VIAL SQ PRN (18:30)
[2017-06-25] MEDS ORDERED: DEXTROSE 50% 50 ML SYR IV PRN (18:30)
[2017-06-25] MEDS ORDERED: PHARMACY GLYCEMIC MGMT CONSULT PRN (18:41)
[2017-06-25] MEDS ORDERED: ALBUT/IPRATROP 3MG/0.5MG NEB 3 ML VIAL INH PRN (18:45)
[2017-06-25] MEDS ORDERED: PANCREAZE (LIPASE 10,500U) CAP PO PRN (19:00)
[2017-06-25 19:44] VITALS: BP 134/81; PULSE 84; TEMP 36.5; O2SAT 95
[2017-06-25 19:45] VITALS: BP 134/81; PULSE 84; TEMP 36.5; O2SAT 95; BMI 23.2
[2017-06-25] MEDS ORDERED: SODIUM PHOSPHATE INJ 24 MMOL in SODIUM CHLORIDE 0.9% 500ML 500 ML IV ONE (19:45)
[2017-06-25] MEDS ORDERED: MAGNESIUM SULFATE 1GM / D5W 1 GM in PREMIXED IN D5W 100 ML IV ONE (19:45)
--- NOTE | 2017-06-25 19:49 | DIAGNOSTIC IMAGING REPORT ---
CT SCAN OF THE ABDOMEN AND PELVIS WITHOUT CONTRAST CLINICAL HISTORY: Generalized abdominal pain COMPARISON STUDY: 05/21/2017 TECHNIQUE: CT scan of the abdomen and pelvis was performed from the lung bases to the proximal femurs. Images are reviewed in the axial, sagittal, and coronal planes. IV contrast was not administered for this examination. A dose lowering technique was utilized adhering to the principles of ALARA. CT DOSE: 302.87 mGy.cm FINDINGS: Lower chest: The heart is normal in size and configuration, without pericardial effusion. The lung bases and pleural spaces are clear. Liver: The unenhanced liver is normal in size, contour, and attenuation. There is no intrahepatic biliary ductal dilatation. Gallbladder: Minimally distended. No calculi are visualized. Spleen: Normal in size and attenuation. Pancreas: Unremarkable. Adrenal glands: Unremarkable. Kidneys: No renal, ureteral, or bladder calculi are visualized. There is a 17 mm right renal hypodensity likely representing a cyst. Bowel: Evaluation the bowel is limited due to the lack of intravenous and oral contrast. There are no transition zones indicate bowel obstruction. The appendix appears normal. There is colonic diverticulosis. There is no acute diverticulitis. There is focal infiltration of the left mid abdominal small bowel mesentery. Peritoneum: There is a small amount of free pelvic fluid. No free intraperitoneal air is visualized. There is no evidence of pneumatosis. Vasculature: The abdominal aorta is normal in course and caliber. Adenopathy: None. Pelvic viscera: The bladder, and pelvic viscera are unremarkable. Skeletal structures: No destructive osseous lesions are seen. IMPRESSION: 1. No renal, ureteral, or bladder calculi identified 2. No evidence of bowel obstruction. No evidence of free air 3. Nonspecific infiltration of the left mid abdominal small bowel mesentery. This could be on an ischemic or infectious/inflammatory basis. Close clinical follow-up is recommended. 2. Electronically signed by: Oliverio Crawford M.D. 06/25/2017 7:47 PM Dictated Date/Time: 06/25/2017 7:41 PM
[2017-06-25] MEDS: SODIUM CHLORIDE 0.9% 1000ML 1,000 ML IV SCH (19:53)
[2017-06-25] MEDS: MoRPHine SULFATE 4 MG/ML 1 ML CARP\\VIAL IV PRN (20:08)
--- NOTE | 2017-06-25 20:10 | History and Physical ---
History & Physical Date & Time of Service: Jun 25, 2017 ~ 1730 Chief Complaint: Diarrhea, Abdominal Pain, Weakness Primary Care Physician: Tony Lin D.O. History of Present Illness 62 year old male who presents to the ER with diarrhea, abdominal pain, and generalized weakness. Patient was recently admitted to [facility] 05/22 - 05/31 for acute on chronic diarrhea due to microscopic colitis, electrolyte abnormalities , and CRISTIAN. At discharge, patient's Questran and Lomotil were increased and patient was started on amitriptyline, budesonide, clonidine, and Pepto Bismol. Patient reports he had been feeling well and diarrhea actually slowed down a bit. Since he was feeling better, he decided to self stop the aforementioned medications as well as the Vanco taper he was on for a recent C. Diff infection. 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 A few days ago patient reports he started to feel very weak. He then developed severe lower abdominal pain, diarrhea, and nausea. Abdominal pain has been worse over the LLQ compared to the RLQ. He denies any vomiting. Diarrhea has been non bloody. He felt as though his Matthew 's was flaring so he used IM Decadron once. He has been taking his medications sparingly. He denies fever and chills. He has has lightheadedness and dizziness but denies any syncopal events. No chest pain or shortness of breath. No urinary symptoms. Patient was seen by his PCP today and had positive orthostatic vitals. Outpatient labs shows phos 1.4, Ca+ 11.4, and K+ 5.1. Patient was then referred to the ER for further evaluation. In the ER, patient' s vitals are stable. Labs obtained here are similar to outpatient labs. Past Medical/Surgical History Medical Problems: (1) Adrenal insufficiency Status: Chronic (2) C. difficile diarrhea Status: Chronic (3) CAD (coronary artery disease) Permanent Comment: 2001 - PCI to RCA 2003- PCI to OM1 Status: Chronic (4) COPD (chronic obstructive pulmonary disease) Status: Chronic (5) Donna's syndrome Status: Chronic (6) Depression with anxiety Status: Chronic (7) DM type 2 (diabetes mellitus, type 2) Status: Chronic (8) HLD (hyperlipidemia) Status: Chronic (9) HTN (hypertension) Status: Chronic (10) Microscopic colitis Status: Chronic Family History Diabetes mellitus FATHER MOTHER Social History Smoking Status: Current Every Day Smoker Alcohol Use: occasionally Immunizations History of Influenza Vaccine: Yes Influenza Vaccine Date: Sep 17, 2015 History of Pneumococcal: Yes Pneumococcal Date: Jan 21, 2010 Allergies Coded Allergies: Azathioprine (Verified Adverse Reaction, Unknown, RENAL COMPLICATIONS, 06/25) Home Medications Scheduled Aspirin (Aspirin Chewable), 81 MG PO QAM Atorvastatin (Lipitor), 1 TAB PO DAILY Cholestyramine (Questran), 4 GM PO BID Diphenoxylate/Atropine (Lomotil), 2 TAB PO TID Fluoxetine HCl (Fluoxetine HCl), 20 MG PO QAM Fluticasone Furoate-Vilanterol (Breo Ellipta), 1 INHA PO DAILY Hydrocortisone (Cortef), 1 TAB PO DAILYBD Hydrocortisone (Cortef), 2 TAB PO DAILY Insulin Glargine (Lantus), 10-20 UNITS SC UD Insulin Lispro (Human) (Humalog), SC ACHS Isosorbide Mononitrate Ext Rel (Imdur Ext Rel), 60 MG PO QAM Lisinopril (Zestril), 5 MG PO QAM Magnesium Oxide (Magnesium-Oxide), 400 MG PO BID Pancrelipase (Lipase-Protease- (Creon), 2 CAP PO WM Pancrelipase (Lipase-Protease- (Creon), 1 CAP PO SNACKS Potassium Chloride Pwd (Klor-Con Pwd), 20 MEQ PO DAILY Ranitidine Hcl (Zantac), 150 MG PO BID Tiotropium Nazlini (Spiriva Handihaler), 1 CAP INH DAILY Scheduled PRN Albuterol Hfa (Ventolin Hfa), 3-4 PUFFS INH QID PRN for sob/wheezing Albuterol Sulf (Proventil 0.083% 2.5MG/3ML), 2.5 MG INH QID PRN for Wheezing Alprazolam (Xanax), 0.5 MG PO HS PRN for Sleep Dexamethasone Sod Phos (Dexamethasone Sodium Phos), 1 ML IM DIRECTED PRN for emergency treatment Hydroxyzine Hcl (Atarax), 50 MG PO HS PRN for Insomnia Ipratropium-Albuterol (Duoneb), 1 TREATMENT INH QID PRN for sob/wheezing Mirtazapine (Remeron), 1 TAB PO HS PRN for Insomnia Oxycodone/Acetaminophen 7.5MG/325MG (Oxycodone/Acetaminophen 7.5MG/325MG), 1 TAB PO Q8 PRN for Pain Review of Systems ROS per HPI, all other systems reviewed and negative Physical Exam Vital Signs Date Time Temp Pulse Resp B/P (MAP) Pulse Ox O2 Delivery O2 Flow Rate FiO2 06/25/17 18:38 80 20 140/80 98 06/25/17 18:32 76 13 111/76 96 06/25/17 17:10 102 20 114/83 95 06/25/17 17:07 76 112/75 99 121/88 104 114/83 06/25/17 16:46 86 16 121/89 96 06/25/17 16:42 97 Room Air 06/25/17 16:35 82 06/25/17 16:20 36.7 101 20 129/83 98 Room Air General Appearance: + mild distress (appears to be in pain, tearful at times) Head: normocephalic Eyes: normal inspection ENT: hearing grossly normal Neck: supple, no JVD Respiratory/Chest: no respiratory distress, + wheezing (scattered, I/E) Cardiovascular: regular rate, rhythm, no edema, normal peripheral pulses Abdomen/GI: normal bowel sounds, soft, + tenderness (BL LQ, L > R) Extremities/Musculoskelatal: normal inspection, no calf tenderness Neurologic/Psych: no motor/sensory deficits, alert, normal mood/affect, oriented x 3 Skin: normal color, warm/dry Diagnostics Laboratory Results Results Past 24 Hours Test 06/25/17 16:30 06/25/17 17:07 Range/Units White Blood Count 8.59 4.8-10.8 K/uL Red Blood Count 5.03 4.7-6.1 M/uL Hemoglobin 15.4 14.0-18.0 g/dL Hematocrit 45.3 42-52 % Mean Corpuscular Volume 90.1 80-100 fL Mean Corpuscular Hemoglobin 30.6 25-34 pg Mean Corpuscular Hemoglobin Concent 34.0 32-36 g/dl Platelet Count 263 130-400 K/uL Mean Platelet Volume 10.6 7.4-10.4 fL Neutrophils (%) (Auto) 83.4 % Lymphocytes (%) (Auto) 14.6 % Monocytes (%) (Auto) 1.5 % Eosinophils (%) (Auto) 0.1 % Basophils (%) (Auto) 0.1 % Neutrophils # (Auto) 7.16 1.4-6.5 K/uL Lymphocytes # (Auto) 1.25 1.2-3.4 K/uL Monocytes # (Auto) 0.13 0.11-0.59 K/uL Eosinophils # (Auto) 0.01 0-0.5 K/uL Basophils # (Auto) 0.01 0-0.2 K/uL RDW Standard Deviation 52.6 36.4-46.3 fL RDW Coefficient of Variation 16.0 11.5-14.5 % Immature Granulocyte % (Auto) 0.3 % Immature Granulocyte # (Auto) 0.03 0.00-0.02 K/uL Prothrombin Time 10.2 9.0-12.0 SECONDS Prothromb Time International Ratio 1.0 0.9-1.1 Activated Partial Thromboplast Time 26.1 21.0-31.0 SECONDS Partial Thromboplastin Ratio 1.0 Sodium Level 135 136-145 mmol/L Potassium Level 4.8 3.5-5.1 mmol/L Chloride Level 105 98-107 mmol/L Carbon Dioxide Level 25 21-32 mmol/L Anion Gap 5.0 3-11 mmol/L Blood Urea Nitrogen 12 7-18 mg/dl Creatinine 1.50 0.60-1.40 mg/dl Est Creatinine Clear Calc Drug Dose 51.1 ml/min Estimated GFR () 57.0 Estimated GFR (Non- 49.2 BUN/Creatinine Ratio 8.3 10-20 Random Glucose 272 70-99 mg/dl Calcium Level 11.1 8.5-10.1 mg/dl Phosphorus Level 1.5 2.5-4.9 mg/dl Magnesium Level 1.6 1.8-2.4 mg/dl Total Bilirubin 0.6 0.2-1 mg/dl Direct Bilirubin 0.2 0-0.2 mg/dl Aspartate Amino Transf (AST/SGOT) 26 15-37 U/L Alanine Aminotransferase (ALT/SGPT) 27 12-78 U/L Alkaline Phosphatase 118 45-117 U/L Total Creatine Kinase 45 39-308 U/L Creatine Kinase MB 1.1 0.5-3.6 ng/ml Creatine Kinase MB Ratio 2.4 0-3.0 Troponin I < 0.015 0-0.045 ng/ml Total Protein 8.2 6.4-8.2 gm/dl Albumin 3.9 3.4-5.0 gm/dl Amylase Level 20 25-115 U/L Lipase 143 73-393 U/L Thyroid Stimulating Hormone (TSH) 0.431 0.300-4.500 uIu/ml Free Thyroxine 1.01 0.80-1.60 ng/dl Random Cortisol 2.38 mcg/dl Ionized Calcium 1.37 1.12-1.32 mmol/l Parathyroid Hormone (Intact) < 5.5 11.1-79.5 pg/mL Diagnostic Radiology CHEST/ABD XR IMPRESSION: Normal study. Impression Assessment and Plan ACUTE ON CHRONIC DIARRHEA - admit to [facility] - of chronic collagenous diarrhea and microscopic colitis - patient presenting with worsening lower abdominal pain, nausea, and diarrhea x 3 days; has had several admissions in the past and has been trialed on several different medications - most recent admission to [facility] 05/22 - 05/31 - patient's Questran and Lomotil were increased and was started on amitriptyline, budesonide, clonidine, and Pepto Bismol and continued on Vanco taper from prior C. Diff infection - patient self stopped the new medications as well as the Vanco - steroids seemed to have helped in the past however due to patient's underlying adrenal insufficiency, steroids have been tried to be avoided - will check CT abd/pelvis due to severity of pain - stool studies - symptomatic management with IVF, pain medications, and antiemetics - case discussed with NICOLAS Ardon - will start Octreotide injections as these have helped in the past and continue patient on Questran and Creon; holding Lomotil until C. diff test is resulted CRISTIAN - prerenal due to GI loss from persistent diarrhea - IVF, hold ACEi HYPOPHOSPHATEMIA, HYPOMAGNESEMIA, HYPERCALCEMIA - low phos and Mg+ from GI loss with diarrhea - hypercalcemia likely from dehydration - replace electrolytes, IVF - follow up labs in AM ADRENAL INSUFFICIENCY - BP currently stable - will continue home dose PO hydrocortisone - low threshold for stress dose steroids CAD - stable, no complaints of chest pain - continue nitrate, ASA, and statin - beta pat recently d/c'd due to bradycardia COPD - does have wheezing on exam, saturating well on room air - patient continues to smoke - continue home inhalers, PRN nebs HTN - BP controlled - continue isosorbide - holding Lisinopril due to CRISTIAN DM - hgb a1c 7.5 04/2017 - basal / SSI - glycemic consult DVT PROPHYLAXIS - SCDs DISPO - In my clinical judgment this beneficiary meets acute admission criteria, established by [facility], that includes being hospitalized through two midnights. Attending Addendum: Agree with the above H&P; please refer to above for more detail. Patient is a 62 yo male who came to the ER for complaints of worsening weakness , diarrhea, abdominal pain after being seen by his PCP earlier today who encouraged patient to come to the ER for further evaluation. The patient reports he has been feeling this way for at least the past week. He was recently admitted and was started on multiple medications as outlined above, however some of those medications were stopped, unclear if this was stopped per the patient or per GI. Cardiac: RR, S1 and S2 auscultated Resp: mild expiratory wheeze noted, no crackles GI: soft, tender to light palpation allover but mostly RLQ ELECTROLYTE DERANGEMENTS: -low phos and mag -replete and recheck -monitor in tele until stable ACUTE ON CHRONIC DIARRHEA: -check stool culture and C diff as patient does have previous hx of c diff and did not complete his vanco taper from may -GI consulted -CT abdomen/pelvis; patient states he cannot drink contrast due to nausea/ abdominal pain VTE Prophylaxis VTE Risk Assessment Done? Y/N: Yes Risk Level: Moderate
[2017-06-25] MEDS ORDERED: DIPHENOXYLATE/ATROPINE 2.5/0.025MG TAB PO SCH (21:00)
[2017-06-25] MEDS: MAGNESIUM OXIDE 400 MG TAB PO SCH (21:16)
[2017-06-25] MEDS: RANITIDINE HCL 150 MG TAB PO SCH (21:16)
[2017-06-25] MEDS: CHOLESTYRAMINE LIGHT 4 GM PKT PO SCH (21:18)
[2017-06-25] MEDS: INSULIN GLARGINE SOLOSTAR 100 UNITS/ML 3 ML PEN SC SCH (21:22)
[2017-06-25] MEDS: INSULIN ASPART 100 UNITS/ML 3 ML PEN SC SCH (21:26)
[2017-06-25] MEDS: OCTREOTIDE ACETATE 100 MCG/ML VIAL SQ SCH (21:27)
[2017-06-26] VITALS (7 sets, daily range): BP systolic 115–142; BP diastolic 70–87; PULSE 59–88; TEMP 36.4–36.6; O2SAT 92–98
[2017-06-26] MEDS: MoRPHine SULFATE 4 MG/ML 1 ML CARP\\VIAL IV PRN ×5 (00:15→22:25)
[2017-06-26] MEDS: SODIUM CHLORIDE 0.9% 1000ML 1,000 ML IV SCH ×2 (04:04→13:49)
[2017-06-26 04:10] LABS: HEMATOCRIT 40.2 % (42-52); MEAN CELL VOLUME 89.5 fL (80-100); MEAN CORPUSCULAR HEMOGLOBIN 29.2 pg (25-34); MEAN CORPUSCULAR HGB CONC 32.6 g/dl (32-36); MEAN PLATELET VOLUME 10.2 fL (7.4-10.4); PLATELET COUNT 214 K/uL (130-400); RED BLOOD COUNT 4.49 M/uL (4.7-6.1); WHITE BLOOD COUNT 12.44 K/uL (4.8-10.8)
[2017-06-26 04:49] LABS: MANUAL MICROSCOPIC REQUIRED? NO; REVIEW REQ? NO; URINE APPEARANCE CLEAR (CLEAR); URINE BILIRUBIN NEG (NEG); URINE COLOR YELLOW; URINE NITRITE NEG (NEG); URINE SPECIFIC GRAVITY 1.022 (1.000-1.030); UROBILINOGEN NEG (NEG)
[2017-06-26 05:02] LABS: BUN/CREATININE RATIO 8.8 (10-20); CALCIUM 9.2 mg/dl (8.5-10.1); CREATININE 1.2 mg/dl (0.60-1.40); MAGNESIUM 1.8 mg/dl (1.8-2.4); PHOSPHORUS 3.2 mg/dl (2.5-4.9); POTASSIUM 5.3 mmol/L (3.5-5.1)
[2017-06-26] MEDS: LORAZEPAM 2 MG/ML 1 ML VIAL IV PRN (05:48)
[2017-06-26] MEDS: OCTREOTIDE ACETATE 100 MCG/ML VIAL SQ SCH (06:00)
[2017-06-26] MEDS: MAGNESIUM OXIDE 400 MG TAB PO SCH ×2 (08:44→20:50)
[2017-06-26] MEDS: RANITIDINE HCL 150 MG TAB PO SCH ×2 (08:44→20:50)
[2017-06-26] MEDS: ASPIRIN 81 MG CHEW PO SCH (08:45)
[2017-06-26] MEDS: TIOTROPIUM BROMIDE 5 PUFF/90 MCG INH INH SCH (08:45)
[2017-06-26] MEDS: PANCREAZE (LIPASE 10,500U) CAP PO SCH ×3 (08:46→17:04)
[2017-06-26] MEDS: HYDROCORTISONE 10 MG TAB PO SCH ×2 (08:47→16:56)
[2017-06-26] MEDS: ATORVASTATIN 40 MG TAB PO SCH (08:47)
[2017-06-26] MEDS: ISOSORBIDE MONONITRATE 60 MG TABCR PO SCH (08:47)
[2017-06-26] MEDS: FLUOXETINE HCL 20 MG CAP PO SCH (08:48)
[2017-06-26] MEDS: INSULIN ASPART 100 UNITS/ML 3 ML PEN SC SCH ×4 (08:54→20:51)
--- NOTE | 2017-06-26 09:40 | Clinical Documentation Query ---
LELIA Brennan : CLINICAL DOCUMENTATION QUERY Patient is a 62 year old male admitted with acute on chronic diarrhea, CRISTIAN, associated electrolyte abnormalities, and adrenal insufficiency. H&P notes recent admission for microscopic colitis and treatment for C.Difficile enteritis. Over the past few days, patient reports weakness, non-bloody diarrhea. Stool studies pending. CT scan of the abdomen read to include "Nonspecific infiltration of the left mid abdominal small bowel mesentery.This could be on an ischemic or infectious/inflammatory basis". As appropriate, consider improvement in principle diagnosis from "acute on chronic diarrhea" which are symptoms, to that of a medical diagnosis necessitating your clinical opinion. Thank you. In your clinical opinion is this patient being managed for: ( ) Possible ischemic versus Clostridium Difficile enterocolitis ( ) Other explanation of clinical findings (Please Explain) ( x ) Unable to determine (Please Define) ( ) Need to Discuss ( ) Not Agree The medical record reflects the following clinical findings, treatment, and risk factors. Clinical Indicators: As above Treatment: As above Risk Factors: History of microcolitis, C.Difficile colitis, non-compliance with extended taper of Vancomycin Please clarify and document your clinical opinion in the progress notes and discharge summary. Terms such as "probable", "suspected", "likely", "questionable", "possible", or "still to be ruled out" are acceptable. IF IN AGREEMENT, YOU MUST DOCUMENT ABOVE DIAGNOSTIC STATEMENT IN DAILY PROGRESS NOTES AND DISCHARGE SUMMARY. This document is not part of the patient's record. Thank You, Rich Chong, RN [phone]
[2017-06-26] MEDS: CHOLESTYRAMINE LIGHT 4 GM PKT PO SCH ×2 (10:56→22:25)
--- NOTE | 2017-06-26 11:56 | Gastrointestinal Consultation ---
Gastrointestinal Consultation Date of Consultation: Jun 26, 2017 Attending Physician: Yanelis Pérez Consulting Physician: Nehemiah Cordova Reason for Consultation: Diarrhea History of Present Illness Patient is a 62 year old male well known to our service (followed by Dr. Keith) who presented to ED w c/o diarrhea, abd pain, generalized weakness. He was recently admitted from 05/22 to 05/31 for chronic diarrhea, dehydration and electrolyte imbalance. Diarrhea suspected to be multifactorial including from possible microscopic colitis, diabetes causing poor sphincter control, hx of heavy ETOH use, pancreatic insufficiency, ? UC. Had stool fat and volume check which showed large amt of stool w fat content. At that time he was also in middle of Vancomycin taper for recurrent Cdiff. Upon DC he was on Clonidine 0.05mg BID, Questran 4g BID, Lomotil 2 tabs TID, Amitritylline 25mg qHS, Pepto Bismol 30ml QID, Entecort 9mg daily for his diarrhea. Was tried on Octreotide injections in the past w/o much success in controlling diarrhea. He had followed up with Dr. Keith on 06/15 in GI clinic. At that time pt had reported continued loose stools w stool urgency and had stopped his medication, including Vancomycin taper. Per Dr. Keith he should continue the Questran , Lomotil, Clonidone and pancreatic enzymes. Upon evaluation in ED, he was found to have orthostatic vitals, labs notable for PO 1.5, Mg 1.6, Ca 11.1, K 4.8, Cr 1.5. Normal LFTs, Lipase, CBC showed stable H/H. Chest and abd xray with normal study, CT abd/pelvis generally unremarkable except L mid abd small bowel infiltrate ? ischemic/inflammation/ infection Overnight he's afebrile, BP stable. No BMs since yesterday morning. He denies any fever, chills, CP, SOB. Wants solid food instead of CL diet. Still having some LLQ abd tenderness but this is chronic not increased than prior. Mostly aggravated with movements. Past Medical/Surgical History Medical Problems: (1) Colitis Status: Acute (2) Failure of outpatient treatment Status: Acute (3) Hypotension Status: Acute (4) Pyelonephritis Status: Acute (5) Sepsis Status: Acute (6) Sepsis Status: Acute Past Medical History: Past Medical/Surgical History Medical Problems: (1) Adrenal insufficiency Status: Chronic (2) C. difficile diarrhea Status: Chronic (3) CAD (coronary artery disease) Permanent Comment: 2002 - PCI to RCA 2003- PCI to OM1 Status: Chronic (4) COPD (chronic obstructive pulmonary disease) Status: Chronic (5) Avelina's syndrome Status: Chronic (6) Depression with anxiety Status: Chronic (7) DM type 2 (diabetes mellitus, type 2) Status: Chronic (8) HLD (hyperlipidemia) Status: Chronic (9) HTN (hypertension) Status: Chronic (10) Microscopic colitis Status: Chronic Family History Diabetes mellitus FATHER MOTHER Social History Smoking Status: Current Every Day Smoker Alcohol Use: occasionally Drug Use: none Marital Status: Housing Status: lives with family Occupation Status: employed Allergies Coded Allergies: Azathioprine (Verified Adverse Reaction, Unknown, RENAL COMPLICATIONS, 06/25) Current Medications Home Meds and Scripts Medications Dose Route/Sig Max Daily Dose Days Date Category Dose Instructions Remeron (Mirtazapine) 30 Mg Tab 1 Tab PO HS PRN 30 06/25/17 Reported Atarax (Hydroxyzine Hcl) 50 Mg Tab 50 Mg PO HS PRN 06/25/17 Reported Oxycodone/Acetaminophen 7.5MG/325MG 1 Tab Tab 1 Tab PO Q8 PRN 06/25/17 Reported Creon (Pancrelipase (Lipase-Protease-) 1 Cap Cap 1 Cap PO SNACKS 06/25/17 Reported Creon (Pancrelipase (Lipase-Protease-) 1 Cap Cap 2 Cap PO WM 06/25/17 Reported Klor-Con Pwd (Potassium Chloride) 20 Meq Pack 20 Meq PO DAILY 30 05/31/17 Rx Magnesium-Oxide (Magnesium Oxide) 400 Mg Tab 400 Mg PO BID 30 05/31/17 Rx Lomotil (Diphenoxylate HCl/Atropine) Tab 2 Tab PO TID 30 05/31/17 Rx Questran (Cholestyramine) 4 Gm Pow 4 Gm PO BID 30 05/31/17 Rx mix with liquid Proventil 0.083% 2.5MG/3ML (Albuterol Sulf) 2.5 Mg/3 Ml Nebu 2.5 Mg INH QID PRN 05/21/17 Reported Fluoxetine HCl 20 Mg Cap 20 Mg PO QAM 05/21/17 Reported Humalog (Insulin Lispro (Human)) 100 Unit/Ml Inj SC ACHS 05/03/17 Reported SLIDING SCALE, MAX UNITS DAILY, 40 UNITS Ventolin Hfa (Albuterol) 200 Puffs/67971 Mcg Aers 3-4 Puffs INH QID PRN 04/22/17 Rx Duoneb (Ipratropium-Albuterol) 3 Ml Nebu 1 Treatment INH QID PRN 04/22/17 Rx Spiriva Handihaler (Tiotropium [place]) 30 Puff/540 Mcg Aerp 1 Cap INH DAILY 04/20/17 Reported Lantus (Insulin Glargine) 100 Unit/Ml Inj 10-20 Units SC UD 04/20/17 Reported USE DIRECTED Breo Ellipta (Fluticasone Furoate-Vilanterol) 1 Inh Inh 1 Inha PO DAILY 02/19/17 Reported Lipitor (Atorvastatin Calcium) 80 Mg Tab 1 Tab PO DAILY 30 02/19/17 Reported Cortef (Hydrocortisone) 10 Mg Tab 2 Tab PO DAILY 02/19/17 Reported Dexamethasone Sodium Phos (Dexamethasone Sod Phos) 4 Mg/Ml Inj 1 Ml IM DIRECTED PRN 02/19/17 Reported Xanax (Alprazolam) 0.5 Mg Tab 0.5 Mg PO HS PRN 04/08/16 Reported Zestril (Lisinopril) 5 Mg Tab 5 Mg PO QAM 04/08/16 Reported Imdur Ext Rel (Isosorbide Mononitrate) 60 Mg Ertab 60 Mg PO QAM 04/08/16 Reported Aspirin Chewable (Aspirin) 81 Mg Chew 81 Mg PO QAM 04/08/16 Reported Cortef (Hydrocortisone) 10 Mg Tab 1 Tab PO DAILYBD 04/08/16 Reported 6pm Zantac (Ranitidine HCl) 150 Mg Tab 150 Mg PO BID 04/08/16 Reported Review of Systems Constitutional: + weakness, No fever, No chills Respiratory: No cough, No shortness of breath Cardiac: No chest pain Abdomen: + pain (LLQ), + diarrhea, No nausea, No vomiting Physical Exam Date Time Temp Pulse Resp B/P (MAP) Pulse Ox O2 Delivery O2 Flow Rate FiO2 06/26/17 08:00 Room Air 06/26/17 07:35 36.6 74 19 139/80 (99) 92 Room Air 88 129/83 (98) 83 126/80 (95) 8/4/17 04:50 36.4 59 18 142/84 (103) 98 Room Air 06/26/17 04:00 Room Air 06/26/17 00:15 36.4 65 18 142/83 (102) 97 Room Air 06/26/17 00:00 Room Air 06/25/17 19:45 36.5 84 22 134/81 95 Room Air 06/25/17 19:44 36.5 84 22 134/81 (98) 95 Room Air 06/25/17 18:38 80 20 140/80 98 06/25/17 18:32 76 13 111/76 96 06/25/17 17:10 102 20 114/83 95 06/25/17 17:07 76 112/75 99 121/88 104 114/83 06/25/17 16:46 86 16 121/89 96 06/25/17 16:42 97 Room Air 06/25/17 16:35 82 06/25/17 16:20 36.7 101 20 129/83 98 Room Air General Appearance: WD/WN, no apparent distress Eyes: normal inspection, PERRL, EOMI Neck: supple, no JVD, trachea midline Respiratory/Chest: normal breath sounds, no respiratory distress, no accessory muscle use Cardiovascular: regular rate, rhythm, no gallop, no murmur Abdomen: normal bowel sounds, soft, + tenderness (LLQ) Extremities: normal inspection, no pedal edema, no calf tenderness Neurologic/Psych: alert, normal mood/affect, oriented x 3 Skin: normal color, no jaundice, no rash Laboratory Results Last 24 Hours Test 06/25/17 16:30 06/25/17 17:07 06/25/17 20:31 06/25/17 20:59 White Blood Count 8.59 K/uL Red Blood Count 5.03 M/uL Hemoglobin 15.4 g/dL Hematocrit 45.3 % Mean Corpuscular Volume 90.1 fL Mean Corpuscular Hemoglobin 30.6 pg Mean Corpuscular Hemoglobin Concent 34.0 g/dl Platelet Count 263 K/uL Mean Platelet Volume 10.6 fL Neutrophils (%) (Auto) 83.4 % Lymphocytes (%) (Auto) 14.6 % Monocytes (%) (Auto) 1.5 % Eosinophils (%) (Auto) 0.1 % Basophils (%) (Auto) 0.1 % Neutrophils # (Auto) 7.16 K/uL Lymphocytes # (Auto) 1.25 K/uL Monocytes # (Auto) 0.13 K/uL Eosinophils # (Auto) 0.01 K/uL Basophils # (Auto) 0.01 K/uL RDW Standard Deviation 52.6 fL RDW Coefficient of Variation 16.0 % Immature Granulocyte % (Auto) 0.3 % Immature Granulocyte # (Auto) 0.03 K/uL Prothrombin Time 10.2 SECONDS Prothromb Time International Ratio 1.0 Activated Partial Thromboplast Time 26.1 SECONDS Partial Thromboplastin Ratio 1.0 Sodium Level 135 mmol/L Potassium Level 4.8 mmol/L Chloride Level 105 mmol/L Carbon Dioxide Level 25 mmol/L Anion Gap 5.0 mmol/L Blood Urea Nitrogen 12 mg/dl Creatinine 1.50 mg/dl Est Creatinine Clear Calc Drug Dose 51.1 ml/min Estimated GFR () 57.0 Estimated GFR (Non- 49.2 BUN/Creatinine Ratio 8.3 Random Glucose 272 mg/dl Calcium Level 11.1 mg/dl Phosphorus Level 1.5 mg/dl Magnesium Level 1.6 mg/dl Total Bilirubin 0.6 mg/dl Direct Bilirubin 0.2 mg/dl Aspartate Amino Transf (AST/SGOT) 26 U/L Alanine Aminotransferase (ALT/SGPT) 27 U/L Alkaline Phosphatase 118 U/L Total Creatine Kinase 45 U/L Creatine Kinase MB 1.1 ng/ml Creatine Kinase MB Ratio 2.4 Troponin I < 0.015 ng/ml Total Protein 8.2 gm/dl Albumin 3.9 gm/dl Amylase Level 20 U/L Lipase 143 U/L Thyroid Stimulating Hormone (TSH) 0.431 uIu/ml Free Thyroxine 1.01 ng/dl Random Cortisol 2.38 mcg/dl Ionized Calcium 1.37 mmol/l Parathyroid Hormone (Intact) < 5.5 pg/mL Lactic Acid Level 1.7 mmol/L Bedside Glucose 294 mg/dl Test 06/26/17 03:45 06/26/17 03:48 06/26/17 06:40 Urine Color YELLOW Urine Appearance CLEAR Urine pH 5.0 Urine Specific [place] 1.022 Urine Protein NEG Urine Glucose (UA) 3+ Urine Ketones NEG Urine Occult Blood NEG Urine Nitrite NEG Urine Bilirubin NEG Urine Urobilinogen NEG Urine Leukocyte Esterase NEG White Blood Count 12.44 K/uL Red Blood Count 4.49 M/uL Hemoglobin 13.1 g/dL Hematocrit 40.2 % Mean Corpuscular Volume 89.5 fL Mean Corpuscular Hemoglobin 29.2 pg Mean Corpuscular Hemoglobin Concent 32.6 g/dl RDW Standard Deviation 50.2 fL RDW Coefficient of Variation 15.4 % Platelet Count 214 K/uL Mean Platelet Volume 10.2 fL Sodium Level 137 mmol/L Potassium Level 5.3 mmol/L Chloride Level 108 mmol/L Carbon Dioxide Level 24 mmol/L Anion Gap 5.0 mmol/L Blood Urea Nitrogen 11 mg/dl Creatinine 1.20 mg/dl Est Creatinine Clear Calc Drug Dose 63.9 ml/min Estimated GFR () 74.7 Estimated GFR (Non- 64.4 BUN/Creatinine Ratio 8.8 Random Glucose 179 mg/dl Calcium Level 9.2 mg/dl Phosphorus Level 3.2 mg/dl Magnesium Level 1.8 mg/dl Bedside Glucose 150 mg/dl Impression Patient is a 62 year old male w admitted w c/o diarrhea, abd pain, weakness, noted to have several electrolyte abnormalities at admission which is improving. He has chronic diarrhea which is suspected to be multifactorial: microscopic colitis, DM, pancreatic insufficiency ? remote suspicion of possible UC. Since admission however pt doesn't appear to be having any BMs. Plan - Check stool cx, Cdiff if loose stools - Ok to DC Octreotide since previously wasn't very helpful. Continue pancreas enzymes, Questran 4g BID. Will add Lomotil 2g TID, and later may add also Clonidine 0.05mg BID if ongoing diarrhea. Amitriptylline 25mg QHS. - He requests for endocrinology eval. Hx of adrenal insufficiency and low PTH - > sees Dr. Guilherme Mcghee ([facility] [place]), would prefer not to see Dr. Salamanca. Pt and family will make outpt Endocrine appt w Dr. Mcghee instead - Monitor electrolytes and correction per primary team. I saw and evaluated the patient. 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 He is followed by gastroenterology due to problems with recurrent C. difficile, microscopic colitis, and pancreatic insufficiency. He notes that he does not have diarrhea at this time. Physical examination No obvious distress No abdominal tenderness Impression: Patient's electronic problems be related to Bledsoe's disease as opposed to diarrhea as the patient presently does not diarrhea Recommendations Patient should continue with his outpatient regimen Please call with any questions or concerns during the remainder of his hospital stay
--- NOTE | 2017-06-26 12:28 | Pharmacy Progress Note ---
Glycemic Control Intl Consult Date of Service Jun 26, 2017. Scope Glycemic Pharmacist consulted by NICOLAS Ritter on 06/25/17 for glycemic control and to write orders per [facility] inpatient glycemic control protocol. Objective Weight (Kilograms): 74.000 Accuchecks BSG (last 24hrs): Test 06/25/17 16:30 06/25/17 20:59 06/26/17 03:48 06/26/17 06:40 Random Glucose 272 mg/dl (70-99) 179 mg/dl (70-99) Bedside Glucose 294 mg/dl (70-99) 150 mg/dl (70-99) Test 06/26/17 11:15 Bedside Glucose 126 mg/dl (70-99) Laboratory Data (last 24hrs) Test 06/25/17 16:30 06/26/17 03:48 Anion Gap 5.0 mmol/L 5.0 mmol/L BUN/Creatinine Ratio 8.3 8.8 Blood Urea Nitrogen 12 mg/dl 11 mg/dl Creatinine 1.50 mg/dl 1.20 mg/dl Potassium Level 4.8 mmol/L 5.3 mmol/L Sodium Level 135 mmol/L 137 mmol/L White Blood Count 8.59 K/uL 12.44 K/uL Red Blood Count 5.03 M/uL Hemoglobin 15.4 g/dL Hematocrit 45.3 % Mean Corpuscular Volume 90.1 fL Mean Corpuscular Hemoglobin 30.6 pg Mean Corpuscular Hemoglobin Concent 34.0 g/dl Platelet Count 263 K/uL Mean Platelet Volume 10.6 fL Neutrophils (%) (Auto) 83.4 % Lymphocytes (%) (Auto) 14.6 % Monocytes (%) (Auto) 1.5 % Eosinophils (%) (Auto) 0.1 % Basophils (%) (Auto) 0.1 % Neutrophils # (Auto) 7.16 K/uL Lymphocytes # (Auto) 1.25 K/uL Monocytes # (Auto) 0.13 K/uL Eosinophils # (Auto) 0.01 K/uL Basophils # (Auto) 0.01 K/uL HbA1c Item Value Date Time Hemoglobin A1c 7.6 % H 05/24/17 0630 Recent Pertinent Medications Outpatient Anti-diabetic Regimen: * Lantus 10-20 units SQ daily * A1c = 7.6 % (05/24/17) Risk Factors for Insulin Resistance: * Steroids: Hydrocortisone PO 20mg qAM, 10mg qPM (home dose) * IVF: NS @ 100mL/hr * Diet: clears/Type 2 DM/AHA --> diet to advance this afternoon * Octreotide SQ -- may complicate glycemic management Assessment & Plan ASSESSMENT: * Mr Urbina is a 62yo diabetic male, known to pharmacy glycemic mgmt service from past admissions. * Patient was hyperglycemic on admission last evening, but BSGs have been reasonable thus far today. * Diet is being advanced from clears this evening, so suspect that patient may require some insulin adjustments tomorrow. * ADA & AACE recommend a goal blood sugar range 140-180 mg/dl for the majority of critically ill & non-critically ill patients. However, more stringent targets may be selected in individual cases. PLAN FOR INPATIENT GLYCEMIC CONTROL: * Basal insulin with LANTUS 10 units SQ QHS * Will consider switching to BID coverage tomorrow if BSGs begin to rise with diet advancement * Correctional Insulin with NOVOLOG per scale ACHS or Q6hrs while NPO * Goal Range: Low 140 mg/dL - High 180 mg/dL * Correction Factor: 20 mg/dL/unit * Nutritional / Prandial insulin per carb ratio of 1 unit per 6 grams CHO consumed * Please note that the plan above was derived based on current level of insulin resistance and hospital stress. These recommendations are appropriate for inpatient admission only. Plan of care upon discharge will need to be reassessed to avoid potential outpatient hypo/hyperglycemia. Thank you.
--- NOTE | 2017-06-26 13:54 | Progress Note ---
Internal Med Progress Note Date of Service: Jun 26, 2017. Provider Documentation: SUBJECTIVE: mentions that diarrhea has resolved no bowel movement since yesterday tolerating diet worried about his abnormal labs , low PTH level has not seen Endocrine for months pt is counselled to need to have regular follow up with Endocrinology OBJECTIVE: Vital Signs-as noted below Exam: General-no sign of distress Eyes-sclera non icteric ENT-NAD Neck-no JVD Lungs-CTA , no wheeze or rales Heart-regular S1.S2 Abdomen-soft, non tender Extremities-no rash or deformity Neuro-AAO x3, no focal deficit Lab data as noted below. ASSESSMENT & PLAN: CHRONIC DIARRHEA - hx of chronic collagenous diarrhea and microscopic colitis - patient presenting with worsening lower abdominal pain, nausea, and diarrhea x 3 days; has had several admissions in the past and has been trialed on several different medications - most recent admission to [facility] 05/22 - 05/31 - patient's Questran and Lomotil were increased and was started on amitriptyline, budesonide, clonidine, and Pepto Bismol and continued on Vanco taper from prior C. Diff infection - patient self stopped the new medications as well as the Vanco - - CT abd/pelvis shows no pathology - stool studies -c diff negative - symptomatic management with IVF, pain medications, and antiemetics diet advanced , tolerating well appreciate input form GI CRISTIAN resolved with IV fluids - prerenal due to GI loss from persistent diarrhea HYPOPHOSPHATEMIA, HYPOMAGNESEMIA, HYPERCALCEMIA corrected - low phos and Mg+ from GI loss with diarrhea - hypercalcemia likely from dehydration - ADRENAL INSUFFICIENCY - BP currently stable - will continue home dose PO hydrocortisone - low threshold for stress dose steroids pt was being followed with Endocrine Dr Salamanca -stopped seeing months ago / does not want to follow up with her planning to see Dr Hammer , has not made any appointment pt is counselled to see Endocrine as soon as possible for management HYPERKALEMIA : due to above low K diet CAD - stable, no complaints of chest pain - continue nitrate, ASA, and statin - beta pat recently d/c'd due to bradycardia COPD - does have wheezing on exam, saturating well on room air - patient continues to smoke - continue home inhalers, PRN nebs HTN - BP controlled - continue isosorbide - holding Lisinopril due to CRISTIAN DM - hgb a1c 7.5 04/2017 - basal / SSI - glycemic consult DVT PROPHYLAXIS - SCDs DISPOSITION discharge home when medically stable Vital Signs: Date Time Temp Pulse Resp B/P (MAP) Pulse Ox O2 Delivery O2 Flow Rate FiO2 06/26/17 12:02 Room Air 06/26/17 12:01 36.6 66 18 135/85 (102) 97 Room Air 06/26/17 08:00 Room Air 06/26/17 07:35 36.6 74 19 139/80 (99) 92 Room Air 88 129/83 (98) 83 126/80 (95) 06/26/17 04:50 36.4 59 18 142/84 (103) 98 Room Air 06/26/17 04:00 Room Air 06/26/17 00:15 36.4 65 18 142/83 (102) 97 Room Air 06/26/17 00:00 Room Air 06/25/17 19:45 36.5 84 22 134/81 95 Room Air 06/25/17 19:44 36.5 84 22 134/81 (98) 95 Room Air 06/25/17 18:38 80 20 140/80 98 06/25/17 18:32 76 13 111/76 96 06/25/17 17:10 102 20 114/83 95 06/25/17 17:07 76 112/75 99 121/88 104 114/83 06/25/17 16:46 86 16 121/89 96 06/25/17 16:42 97 Room Air 06/25/17 16:35 82 06/25/17 16:20 36.7 101 20 129/83 98 Room Air Lab Results: Results Past 24 Hours Test 06/25/17 16:30 06/25/17 17:07 06/25/17 20:31 06/25/17 20:59 Range/Units White Blood Count 8.59 4.8-10.8 K/uL Red Blood Count 5.03 4.7-6.1 M/uL Hemoglobin 15.4 14.0-18.0 g/dL Hematocrit 45.3 42-52 % Mean Corpuscular Volume 90.1 80-100 fL Mean Corpuscular Hemoglobin 30.6 25-34 pg Mean Corpuscular Hemoglobin Concent 34.0 32-36 g/dl Platelet Count 263 130-400 K/uL Mean Platelet Volume 10.6 7.4-10.4 fL Neutrophils (%) (Auto) 83.4 % Lymphocytes (%) (Auto) 14.6 % Monocytes (%) (Auto) 1.5 % Eosinophils (%) (Auto) 0.1 % Basophils (%) (Auto) 0.1 % Neutrophils # (Auto) 7.16 1.4-6.5 K/uL Lymphocytes # (Auto) 1.25 1.2-3.4 K/uL Monocytes # (Auto) 0.13 0.11-0.59 K/uL Eosinophils # (Auto) 0.01 0-0.5 K/uL Basophils # (Auto) 0.01 0-0.2 K/uL RDW Standard Deviation 52.6 36.4-46.3 fL RDW Coefficient of Variation 16.0 11.5-14.5 % Immature Granulocyte % (Auto) 0.3 % Immature Granulocyte # (Auto) 0.03 0.00-0.02 K/uL Prothrombin Time 10.2 9.0-12.0 SECONDS Prothromb Time International Ratio 1.0 0.9-1.1 Activated Partial Thromboplast Time 26.1 21.0-31.0 SECONDS Partial Thromboplastin Ratio 1.0 Sodium Level 135 136-145 mmol/L Potassium Level 4.8 3.5-5.1 mmol/L Chloride Level 105 98-107 mmol/L Carbon Dioxide Level 25 21-32 mmol/L Anion Gap 5.0 3-11 mmol/L Blood Urea Nitrogen 12 7-18 mg/dl Creatinine 1.50 0.60-1.40 mg/dl Est Creatinine Clear Calc Drug Dose 51.1 ml/min Estimated GFR () 57.0 Estimated GFR (Non- 49.2 BUN/Creatinine Ratio 8.3 10-20 Random Glucose 272 70-99 mg/dl Calcium Level 11.1 8.5-10.1 mg/dl Phosphorus Level 1.5 2.5-4.9 mg/dl Magnesium Level 1.6 1.8-2.4 mg/dl Total Bilirubin 0.6 0.2-1 mg/dl Direct Bilirubin 0.2 0-0.2 mg/dl Aspartate Amino Transf (AST/SGOT) 26 15-37 U/L Alanine Aminotransferase (ALT/SGPT) 27 12-78 U/L Alkaline Phosphatase 118 45-117 U/L Total Creatine Kinase 45 39-308 U/L Creatine Kinase MB 1.1 0.5-3.6 ng/ml Creatine Kinase MB Ratio 2.4 0-3.0 Troponin I < 0.015 0-0.045 ng/ml Total Protein 8.2 6.4-8.2 gm/dl Albumin 3.9 3.4-5.0 gm/dl Amylase Level 20 25-115 U/L Lipase 143 73-393 U/L Thyroid Stimulating Hormone (TSH) 0.431 0.300-4.500 uIu/ml Free Thyroxine 1.01 0.80-1.60 ng/dl Random Cortisol 2.38 mcg/dl Ionized Calcium 1.37 1.12-1.32 mmol/l Parathyroid Hormone (Intact) < 5.5 11.1-79.5 pg/mL Lactic Acid Level 1.7 0.4-2.0 mmol/L Bedside Glucose 294 70-99 mg/dl Test 06/26/17 03:45 06/26/17 03:48 06/26/17 06:40 06/26/17 11:15 Range/Units Urine Color YELLOW Urine Appearance CLEAR CLEAR Urine pH 5.0 4.5-7.5 Urine Specific [place] 1.022 1.000-1.030 Urine Protein NEG NEG Urine Glucose (UA) 3+ NEG Urine Ketones NEG NEG Urine Occult Blood NEG NEG Urine Nitrite NEG NEG Urine Bilirubin NEG NEG Urine Urobilinogen NEG NEG Urine Leukocyte Esterase NEG NEG White Blood Count 12.44 4.8-10.8 K/uL Red Blood Count 4.49 4.7-6.1 M/uL Hemoglobin 13.1 14.0-18.0 g/dL Hematocrit 40.2 42-52 % Mean Corpuscular Volume 89.5 80-100 fL Mean Corpuscular Hemoglobin 29.2 25-34 pg Mean Corpuscular Hemoglobin Concent 32.6 32-36 g/dl RDW Standard Deviation 50.2 36.4-46.3 fL RDW Coefficient of Variation 15.4 11.5-14.5 % Platelet Count 214 130-400 K/uL Mean Platelet Volume 10.2 7.4-10.4 fL Sodium Level 137 136-145 mmol/L Potassium Level 5.3 3.5-5.1 mmol/L Chloride Level 108 98-107 mmol/L Carbon Dioxide Level 24 21-32 mmol/L Anion Gap 5.0 3-11 mmol/L Blood Urea Nitrogen 11 7-18 mg/dl Creatinine 1.20 0.60-1.40 mg/dl Est Creatinine Clear Calc Drug Dose 63.9 ml/min Estimated GFR () 74.7 Estimated GFR (Non- 64.4 BUN/Creatinine Ratio 8.8 10-20 Random Glucose 179 70-99 mg/dl Calcium Level 9.2 8.5-10.1 mg/dl Phosphorus Level 3.2 2.5-4.9 mg/dl Magnesium Level 1.8 1.8-2.4 mg/dl Bedside Glucose 150 126 70-99 mg/dl
[2017-06-26] MEDS: DIPHENOXYLATE/ATROPINE 2.5/0.025MG TAB PO SCH ×2 (14:22→21:55)
[2017-06-26] MEDS: LORAZEPAM INJ 0.5 MG in SYRINGE 0.75 ML IV PRN (16:55)
[2017-06-26] MEDS: AMITRIPTYLINE HCL 25 MG TAB PO SCH (20:51)
[2017-06-26] MEDS: INSULIN GLARGINE SOLOSTAR 100 UNITS/ML 3 ML PEN SC SCH (20:53)
[2017-06-26] MEDS: CLONIDINE HCL 0.1 MG TAB PO SCH (21:55)
[2017-06-27] MEDS: SODIUM CHLORIDE 0.9% 1000ML 1,000 ML IV SCH ×3 (00:03→20:45)
[2017-06-27] MEDS: MoRPHine SULFATE 4 MG/ML 1 ML CARP\\VIAL IV PRN ×3 (04:41→21:08)
[2017-06-27 06:03] LABS: HEMATOCRIT 35.1 % (42-52); MEAN CELL VOLUME 90.7 fL (80-100); MEAN CORPUSCULAR HEMOGLOBIN 29.7 pg (25-34); MEAN CORPUSCULAR HGB CONC 32.8 g/dl (32-36); MEAN PLATELET VOLUME 10.3 fL (7.4-10.4); PLATELET COUNT 181 K/uL (130-400); RED BLOOD COUNT 3.87 M/uL (4.7-6.1)
[2017-06-27 06:46] LABS: BUN/CREATININE RATIO 13.2 (10-20); CALCIUM 8.4 mg/dl (8.5-10.1); CREATININE 1.3 mg/dl (0.60-1.40); MAGNESIUM 1.6 mg/dl (1.8-2.4); PHOSPHORUS 2.5 mg/dl (2.5-4.9); POTASSIUM 4.2 mmol/L (3.5-5.1)
[2017-06-27 07:25] VITALS: BP_SYST 124; BP_SYST 129; BP_SYST 144; BP_DIAS 74; BP_DIAS 80; BP_DIAS 81; PULSE 68; TEMP 36.4; O2SAT 99
[2017-06-27] MEDS: PANCREAZE (LIPASE 10,500U) CAP PO SCH ×3 (08:00→17:20)
[2017-06-27] MEDS: ONDANSETRON INJ 2 MG/ML 2 ML VIAL IV PRN (08:54)
[2017-06-27] MEDS: INSULIN ASPART 100 UNITS/ML 3 ML PEN SC SCH ×4 (09:03→20:57)
[2017-06-27] MEDS: TIOTROPIUM BROMIDE 5 PUFF/90 MCG INH INH SCH (09:59)
[2017-06-27] MEDS: CLONIDINE HCL 0.1 MG TAB PO SCH ×2 (10:00→20:51)
[2017-06-27] MEDS: ATORVASTATIN 40 MG TAB PO SCH (10:01)
[2017-06-27] MEDS: DIPHENOXYLATE/ATROPINE 2.5/0.025MG TAB PO SCH ×3 (10:01→20:51)
[2017-06-27] MEDS: HYDROCORTISONE 10 MG TAB PO SCH ×2 (10:01→17:20)
[2017-06-27] MEDS: ISOSORBIDE MONONITRATE 60 MG TABCR PO SCH (10:01)
[2017-06-27] MEDS: RANITIDINE HCL 150 MG TAB PO SCH ×2 (10:02→20:53)
[2017-06-27] MEDS: MAGNESIUM OXIDE 400 MG TAB PO SCH ×2 (10:02→20:53)
[2017-06-27] MEDS: FLUOXETINE HCL 20 MG CAP PO SCH (10:02)
[2017-06-27] MEDS: CHOLESTYRAMINE LIGHT 4 GM PKT PO SCH ×2 (11:24→21:00)
--- NOTE | 2017-06-27 12:10 | Pharmacy Progress Note ---
Glycemic Control Progress Note Date of Service Jun 27, 2017. Scope Glycemic Pharmacist consulted for glycemic control to write orders per [facility] inpatient glycemic control protocol. Objective Accuchecks BSG (last 24hrs): Test 06/26/17 16:52 06/26/17 19:38 06/27/17 05:33 06/27/17 07:35 Bedside Glucose 148 mg/dl (70-99) 116 mg/dl (70-99) 89 mg/dl (70-99) Random Glucose 102 mg/dl (70-99) Test 06/27/17 11:35 Bedside Glucose 100 mg/dl (70-99) HbA1c: 7.6% on 05/24/17 Recent Pertinent Medications The patient is currently receiving: * Basal insulin: Lantus 10 units every 24 hours given at bedtime * Correctional Insulin: Novolog Correction per scale ACHS Goal Range: Low 140 mg/dL - High 180 mg/dL Correction Factor: 20 mg/dL/unit * Prandial insulin: Per carb ratio of 1 unit per 6 grams CHO consumed Outpatient Anti-Diabetic Meds Basal Insulin Bolus Insulin Also on chronic PO steroids (hydrocortisone) for adrenal insufficiency Assessment & Plan ASSESSMENT: * See progress note from 06/26/17 for more background info, in short: * Pt receiving SQ basal bolus insulin regimen for hyperglycemia secondary to baseline DM (outpatient regimen is SQ basal bolus), steroids * Patient is currently receiving an average of ~34 units of insulin per day * 10 units of basal insulin * 24 units of prandial/correctional insulin * BSGs ranging 89 - 148 mg/dl over the past 24hrs * Changes needed to insulin regimen: * AM Fasting BSG = 89 mg/dl. This is in slightly below goal range for patient based on inpatient targets and co-morbidities. Therefore Basal insulin needs decreased. Octreotide SQ d/c which will improve insulin resistance/glycemic control. * Post-prandial BSGs are in range therefore no changes needed to CF/CR * Additional notes / comments: Pt known to pharmacy from previous admissions/ glycemic consults. Typically requires 35-55 units/day with similar stressors on board. Pharmacy will continue to titrate based on BSG trends. PLAN FOR INPATIENT GLYCEMIC CONTROL: * Basal insulin: decrease slightly for below goal AM fasting BSG * Lantus 9 units SQ HS * Bolus insulin: no changes, aggressive CF/CR needed for steroid hyperglycemia * NovoLog per scale ACHS or Q6hrs while NPO * Goal Range: Low 120 mg/dL - High 140 mg/dL * Correction Factor: 20 mg/dL/unit * Nutritional / Prandial insulin per carb ratio of 1 unit per 6 grams CHO consumed * Please note that the plan above was derived based on current level of insulin resistance and hospital stress. These recommendations are appropriate for inpatient admission only. Plan of care upon discharge will need to be reassessed to avoid potential outpatient hypo/hyperglycemia. Thank you.
[2017-06-27] MEDS: ASPIRIN 81 MG CHEW PO SCH (12:18)
[2017-06-27] MEDS: LORAZEPAM 2 MG/ML 1 ML VIAL IV PRN (14:32)
[2017-06-27 15:35] VITALS: BP_SYST 105; BP_SYST 110; BP_SYST 111; BP_DIAS 64; BP_DIAS 66; BP_DIAS 67; PULSE 61; TEMP 36.4; O2SAT 98
[2017-06-27] MEDS ORDERED: MAGNESIUM SULFATE 1GM / D5W 1 GM in PREMIXED IN D5W 100 ML IV SCH (17:00)
--- NOTE | 2017-06-27 17:54 | Progress Note ---
Internal Med Progress Note Date of Service: Jun 27, 2017. Provider Documentation: SUBJECTIVE: mentions of having diarrhea approx 5 times today no nausea , vomiting has ongoing pain in abdomen , chronic no fever or chills OBJECTIVE: Vital Signs-as noted below Exam: General-no sign of distress Eyes-sclera non icteric ENT-NAD Neck-no JVD Lungs-CTA , no wheeze or rales Heart-regular S1.S2 Abdomen-soft, non tender Extremities-no rash or deformity Neuro-AAO x3, no focal deficit Lab data as noted below. ASSESSMENT & PLAN: CHRONIC DIARRHEA - hx of chronic collagenous diarrhea and microscopic colitis - patient presenting with worsening lower abdominal pain, nausea, and diarrhea x 3 days; has had several admissions in the past and has been trialed on several different medications - most recent admission to [facility] 05/22 - 05/31 - patient's Questran and Lomotil were increased and was started on amitriptyline, budesonide, clonidine, and Pepto Bismol and continued on Vanco taper from prior C. Diff infection - patient self stopped the new medications as well as the Vanco - - CT abd/pelvis shows no pathology - stool studies -c diff negative - symptomatic management with IVF, pain medications, and antiemetics diet advanced , tolerating well appreciate input form GI CRISTIAN resolved with IV fluids - prerenal due to GI loss from persistent diarrhea -follow PRP HYPOPHOSPHATEMIA, HYPOMAGNESEMIA, corrected - low phos and Mg+ from GI loss with diarrhea ordered for 1 gm IV mg for low mg 1.7 normal Phos level HYPERCALCEMIA - Ca level ~8 - ADRENAL INSUFFICIENCY - BP currently stable - will continue home dose PO hydrocortisone - low threshold for stress dose steroids pt was being followed with Endocrine Dr Salamanca -stopped seeing months ago / does not want to follow up with her planning to see Dr Hammer , has not made any appointment pt is counselled to see Endocrine as soon as possible for management HYPERKALEMIA : due to above low K diet CAD - stable, no complaints of chest pain - continue nitrate, ASA, and statin - beta pat recently d/c'd due to bradycardia COPD - does have wheezing on exam, saturating well on room air - patient continues to smoke - continue home inhalers, PRN nebs HTN - BP controlled - continue isosorbide - holding Lisinopril due to CRISTIAN DM - hgb a1c 7.5 04/2017 - basal / SSI - glycemic consult DVT PROPHYLAXIS - SCDs DISPOSITION discharge home when medically stable Vital Signs: Date Time Temp Pulse Resp B/P (MAP) Pulse Ox O2 Delivery O2 Flow Rate FiO2 06/27/17 16:00 Room Air 06/27/17 15:35 36.4 61 18 105/64 (78) 98 Room Air 111/67 (82) 110/66 (81) 06/27/17 10:23 Room Air 06/27/17 07:25 36.4 68 18 144/81 (102) 99 Room Air 68 124/74 (91) 129/80 (96) 06/27/17 00:30 Room Air 06/26/17 23:57 36.5 66 20 115/70 (85) 96 Room Air 83 134/87 (103) 80 138/84 (102) 06/26/17 18:34 36.4 69 18 128/79 (95) 98 Room Air Lab Results: Results Past 24 Hours Test 06/26/17 19:38 06/27/17 05:33 06/27/17 07:35 06/27/17 11:35 Range/Units Bedside Glucose 116 89 100 70-99 mg/dl White Blood Count 10.90 4.8-10.8 K/uL Red Blood Count 3.87 4.7-6.1 M/uL Hemoglobin 11.5 14.0-18.0 g/dL Hematocrit 35.1 42-52 % Mean Corpuscular Volume 90.7 80-100 fL Mean Corpuscular Hemoglobin 29.7 25-34 pg Mean Corpuscular Hemoglobin Concent 32.8 32-36 g/dl RDW Standard Deviation 52.1 36.4-46.3 fL RDW Coefficient of Variation 15.8 11.5-14.5 % Platelet Count 181 130-400 K/uL Mean Platelet Volume 10.3 7.4-10.4 fL Sodium Level 141 136-145 mmol/L Potassium Level 4.2 3.5-5.1 mmol/L Chloride Level 110 98-107 mmol/L Carbon Dioxide Level 27 21-32 mmol/L Anion Gap 4.0 3-11 mmol/L Blood Urea Nitrogen 17 7-18 mg/dl Creatinine 1.30 0.60-1.40 mg/dl Est Creatinine Clear Calc Drug Dose 58.9 ml/min Estimated GFR () 67.8 Estimated GFR (Non- 58.5 BUN/Creatinine Ratio 13.2 10-20 Random Glucose 102 70-99 mg/dl Calcium Level 8.4 8.5-10.1 mg/dl Phosphorus Level 2.5 2.5-4.9 mg/dl Magnesium Level 1.6 1.8-2.4 mg/dl Test 06/27/17 16:41 Range/Units Bedside Glucose 124 70-99 mg/dl Microbiology Results 06/27/17 C.difficile Toxin B Gene (PCR) - Final, Complete No C. difficile toxin B gene detected 06/27/17 Shiga Toxin Test, Received Pending 06/27/17 Stool Culture, Received Pending
[2017-06-27] MEDS: AMITRIPTYLINE HCL 25 MG TAB PO SCH (20:55)
[2017-06-27] MEDS ORDERED: INSULIN GLARGINE SOLOSTAR 100 UNITS/ML 3 ML PEN SC SCH (21:00)
[2017-06-27 23:23] VITALS: BP 132/76; PULSE 73; TEMP 36.6; O2SAT 96
[2017-06-28] MEDS: LORAZEPAM INJ 0.5 MG in SYRINGE 0.75 ML IV PRN ×2 (00:59→23:22)
[2017-06-28] MEDS: MoRPHine SULFATE 4 MG/ML 1 ML CARP\\VIAL IV PRN ×3 (05:37→19:17)
[2017-06-28] MEDS: SODIUM CHLORIDE 0.9% 1000ML 1,000 ML IV SCH ×2 (05:37→15:35)
[2017-06-28 06:22] LABS: BUN/CREATININE RATIO 12.4 (10-20); CALCIUM 8.3 mg/dl (8.5-10.1); PHOSPHORUS 2.4 mg/dl (2.5-4.9); POTASSIUM 3.9 mmol/L (3.5-5.1)
[2017-06-28 07:30] VITALS: BP 138/83; PULSE 57; TEMP 36.4; O2SAT 98
[2017-06-28] MEDS: MAGNESIUM OXIDE 400 MG TAB PO SCH ×2 (08:21→20:10)
[2017-06-28] MEDS: ATORVASTATIN 40 MG TAB PO SCH (08:21)
[2017-06-28] MEDS: DIPHENOXYLATE/ATROPINE 2.5/0.025MG TAB PO SCH ×3 (08:21→20:10)
[2017-06-28] MEDS: ISOSORBIDE MONONITRATE 60 MG TABCR PO SCH (08:21)
[2017-06-28] MEDS: TIOTROPIUM BROMIDE 5 PUFF/90 MCG INH INH SCH (08:21)
[2017-06-28] MEDS: PANCREAZE (LIPASE 10,500U) CAP PO SCH ×3 (08:21→17:32)
[2017-06-28] MEDS: FLUOXETINE HCL 20 MG CAP PO SCH (08:22)
[2017-06-28] MEDS: HYDROCORTISONE 10 MG TAB PO SCH ×2 (08:22→16:19)
[2017-06-28] MEDS: CLONIDINE HCL 0.1 MG TAB PO SCH ×2 (08:22→20:08)
[2017-06-28] MEDS: RANITIDINE HCL 150 MG TAB PO SCH ×2 (08:22→20:09)
[2017-06-28] MEDS: INSULIN ASPART 100 UNITS/ML 3 ML PEN SC SCH ×4 (08:27→20:37)
[2017-06-28] MEDS: CHOLESTYRAMINE LIGHT 4 GM PKT PO SCH ×4 (08:30→20:08)
[2017-06-28] MEDS: ASPIRIN 81 MG CHEW PO SCH (08:30)
--- NOTE | 2017-06-28 10:04 | Pharmacy Progress Note ---
Glycemic Control Progress Note Date of Service Jun 28, 2017. Scope Glycemic Pharmacist consulted for glycemic control to write orders per [facility] inpatient glycemic control protocol. Objective Accuchecks BSG (last 24hrs): Test 06/27/17 11:35 06/27/17 16:41 06/27/17 20:03 06/28/17 05:13 Bedside Glucose 100 mg/dl (70-99) 124 mg/dl (70-99) 125 mg/dl (70-99) Random Glucose 83 mg/dl (70-99) Test 06/28/17 07:40 Bedside Glucose 79 mg/dl (70-99) HbA1c: 7.6% on 05/24/17 Recent Pertinent Medications The patient is currently receiving: * Basal insulin: Lantus 9 units every 24 hours given at bedtime * Correctional Insulin: Novolog Correction per scale ACHS Goal Range: Low 120 mg/dL - High 140 mg/dL Correction Factor: 20 mg/dL/unit * Prandial insulin: Per carb ratio of 1 unit per 6 grams CHO consumed Outpatient Anti-Diabetic Meds Basal Insulin Bolus Insulin Assessment & Plan ASSESSMENT: * See progress note from 06/26/17 for more background info, in short: * Pt receiving SQ basal bolus insulin regimen for hyperglycemia secondary to baseline DM (outpatient regimen is SQ basal bolus), steroids * Patient is currently receiving an average of ~32-34 units of insulin per day * 9 units of basal insulin * 23 units of prandial/correctional insulin * BSGs ranging 79 - 125 mg/dl over the past 24hrs * Changes needed to insulin regimen: * AM Fasting BSG = 79 mg/dl. This is slightly below goal range for patient based on inpatient targets and co-morbidities. Therefore Basal insulin needs decreased. Current basal insulin dosing is already significantly less than outpatient dosing. Typically, patient requires BID Lantus per previous admissions (7-10 units SQ BID). Only HD/daily dosing is necessary this admission. * Post-prandial BSGs are in range therefore no changes needed to CF/CR * Additional notes / comments: Pt known to pharmacy from previous admissions/ glycemic consults. Typically requires 35-55 units/day with similar stressors on board. Pharmacy will continue to titrate based on BSG trends. PLAN FOR INPATIENT GLYCEMIC CONTROL: * Basal insulin: decrease slightly for below goal AM fasting BSG * Lantus 8 units SQ HS * Bolus insulin: no changes, aggressive CF/CR needed for steroid hyperglycemia * NovoLog per scale ACHS or Q6hrs while NPO * Goal Range: Low 120 mg/dL - High 140 mg/dL * Correction Factor: 20 mg/dL/unit * Nutritional / Prandial insulin per carb ratio of 1 unit per 6 grams CHO consumed * Please note that the plan above was derived based on current level of insulin resistance and hospital stress. These recommendations are appropriate for inpatient admission only. Plan of care upon discharge will need to be reassessed to avoid potential outpatient hypo/hyperglycemia. Thank you.
--- NOTE | 2017-06-28 14:16 | Progress Note ---
Medicine Progress Note Date & Time of Visit: Jun 28, 2017 at 13:57. Subjective Pt was seen and examined Lying in bed with no acute distress Pt said that he continue to have recurrent diarrhea associated with abdominal pain he said that he already had 7 BM so far. he said that he feels weak Denies any SOB, palpitation, dizziness and chest pain Objective Last 8 Hrs Date Time Temp Pulse Resp B/P (MAP) Pulse Ox O2 Delivery O2 Flow Rate FiO2 06/28/17 09:54 Room Air 06/28/17 07:30 36.4 57 16 138/83 (101) 98 Physical Exam: General- No acute distress Head- atraumatic Eyes- PERRL, EOMI ENT- oropharynx clear Neck- supple, no JVD Lungs- clear to auscultation Heart- regular rhythm; no murmur Abdomen- normal bowel sounds, +tenderness Extremities- no calf tenderness Neuro- alert, oriented x 3; PERRL, EOMI; no facial palsy Skin- warm & dry Laboratory Results: Last 24 Hours Test 06/27/17 16:41 06/27/17 20:03 06/28/17 05:13 06/28/17 07:40 Bedside Glucose 124 mg/dl 125 mg/dl 79 mg/dl Sodium Level 143 mmol/L Potassium Level 3.9 mmol/L Chloride Level 113 mmol/L Carbon Dioxide Level 27 mmol/L Anion Gap 3.0 mmol/L Blood Urea Nitrogen 12 mg/dl Creatinine 1.00 mg/dl Est Creatinine Clear Calc Drug Dose 76.6 ml/min Estimated GFR () 93.1 Estimated GFR (Non- 80.3 BUN/Creatinine Ratio 12.4 Random Glucose 83 mg/dl Calcium Level 8.3 mg/dl Phosphorus Level 2.4 mg/dl Magnesium Level 2.0 mg/dl Test 06/28/17 11:27 Bedside Glucose 105 mg/dl Assessment & Plan CHRONIC DIARRHEA Hx of chronic collagenous diarrhea and microscopic colitis Has recurrent admission for diarrhea Most recent admission to [facility] 05/22 - 05/31 - patient's Questran and Lomotil were increased and was started on amitriptyline, budesonide, clonidine, and Pepto Bismol and continued on Vanco taper from prior C. Diff infection Patient self stopped the new medications as well as the Vanco CT abd/pelvis showed no evidence of bowel obstruction, no evidence of free air. nonspecific infiltration of the left mid abdominal small bowel mesentery. Stool negative for C-diff Continue IVF, pain management GI on board Tolerates diet well Diarrhea worsening CRISTIAN Prerenal due to GI loss from persistent diarrhea Resolved Continue follow up BMP ELECTROLYTES IMBALANCE low phos and LOW Mg+ and Low K Related to GI loss with diarrhea Replaced Continue monitor GENERALIZED WEAKNESS Due to electrolytes abnormality and diarrhea PT HYPERCALCEMIA Ca level ~8 Resolved ADRENAL INSUFFICIENCY BP currently stable continue home dose PO hydrocortisone low threshold for stress dose steroids Stopped follow Endocrine Dr Salamanca planning to see Dr Hammer, plan to make an appointment Pt was advised to see endocrinology upon discharge CAD Denies any chest pain continue nitrate, ASA, and statin Not on BB due to bradycardia episodes stable COPD Asymptomatic counseling on smoking cessation continue home inhalers, PRN nebs HTN BP controlled Continue isosorbide Lisinopril on hold due to CRISTIAN DM Hba1c 7.5 on 04/2017 Continue insulin on insulin coverage pharmacy on board for glycemic contol DVT PROPHYLAXIS SCDs DISPOSITION Discharge home when medically stable Consultants: Gastro Current Inpatient Medications: Current Inpatient Medications Medications (Trade) Dose Ordered Sig/Tisha Route Start Time Stop Time Status Last Admin Dose Admin Acetaminophen (Tylenol Tab) 650 mg Q4H PRN PO 06/25/17 17:45 07/25/17 17:44 Ondansetron HCl (Zofran Inj) 4 mg Q6H PRN IV 06/25/17 17:45 07/25/17 17:44 06/27/17 08:54 4 MG Sodium Chloride 1,000 ml @ 100 mls/hr Q10H IV 06/25/17 18:00 07/25/17 17:59 06/28/17 05:37 100 MLS/HR Insulin Aspart (novoLOG ASPART) SLIDING SCALE If C... ACHS SC 06/25/17 21:00 07/25/17 20:59 06/28/17 12:16 4 UNITS Glucose (Glucose 40% Gel) 15-30 GRAMS 15 GRAMS... UD PRN PO 06/25/17 18:30 07/25/17 18:29 Glucose (Glucose Chew Tab) 4-8 Tablets 4 Tabl... UD PRN PO 06/25/17 18:30 07/25/17 18:29 Dextrose (Dextrose 50% 50ML Syringe) 25-50ML OF 50% DW IV FOR... UD PRN IV 06/25/17 18:30 07/25/17 18:29 Glucagon (Glucagon Inj) 1 mg UD PRN SQ 06/25/17 18:30 07/25/17 18:29 Miscellaneous Information (Consult Glycemic Management Pharmacy) 1 ea UD PRN N/A 06/25/17 18:41 07/25/17 18:40 Lorazepam (Ativan Inj) 0.5 mg Q8H PRN IV 06/25/17 18:45 07/25/17 18:44 06/27/17 14:32 0.5 MG Morphine Sulfate (MoRPHine SULFATE INJ) 4 mg Q4H PRN IV 06/25/17 18:45 07/09/17 18:44 06/28/17 05:37 4 MG Aspirin (Aspirin Chew) 81 mg QAM PO 06/26/17 09:00 07/26/17 08:59 06/28/17 08:30 81 MG Atorvastatin Calcium (Lipitor Tab) 80 mg QAM PO 06/26/17 09:00 07/26/17 08:59 06/28/17 08:21 80 MG Fluoxetine HCl (Prozac Cap) 20 mg QAM PO 06/26/17 09:00 07/26/17 08:59 06/28/17 08:22 20 MG Hydrocortisone (Cortef Tab) 10 mg DAILYBD PO 06/26/17 16:00 07/26/17 15:59 06/27/17 17:20 10 MG Hydrocortisone (Cortef Tab) 20 mg QDB PO 06/26/17 07:30 07/26/17 07:59 06/28/17 08:22 20 MG Isosorbide Mononitrate (Imdur Ext Rel Tab) 60 mg QAM PO 06/26/17 09:00 07/26/17 08:59 06/28/17 08:21 60 MG Magnesium Oxide (Mag-Ox Tab) 400 mg BID PO 06/25/17 21:00 07/25/17 20:59 06/28/17 08:21 400 MG Ranitidine HCl (zANTac TAB) 150 mg BID PO 06/25/17 21:00 07/25/17 20:59 06/28/17 08:22 150 MG Tiotropium [place] (Spiriva Handihaler Inhaler) 1 puff DAILY INH 06/26/17 09:00 07/26/17 08:59 06/28/17 08:21 1 PUFF Miscellaneous Information (Order Awaiting Action) 1 ea QS N/A 06/26/17 00:00 07/26/17 00:00 Amylase/Lipase/ Protease (Pancreaze (Lipase 10,500U) Cap) 1 cap BID PRN PO 06/25/17 19:00 07/25/17 18:59 06/26/17 14:28 1 CAP Amylase/Lipase/ Protease (Pancreaze (Lipase 10,500U) Cap) 2 cap TIDM PO 06/26/17 07:30 07/26/17 07:59 06/28/17 12:13 2 CAP Albuterol/ Ipratropium (Duoneb) 3 ml Q4R PRN INH 06/25/17 18:45 07/25/17 18:44 Diphenoxylate HCl/ Atropine (Lomotil Tab) 2 tab TID PO 06/26/17 14:00 07/26/17 13:59 06/28/17 12:13 2 TAB Amitriptyline HCl (Elavil Tab) 25 mg HS PO 06/26/17 21:00 07/26/17 20:59 06/27/17 20:55 25 MG Clonidine HCl (Catapres Tab) 0.05 mg BID PO 06/26/17 20:00 07/26/17 20:59 06/28/17 08:22 0.05 MG Lorazepam 0.5 mg/ Syringe 1 ml @ 1 mls/min Q8 PRN IV 06/26/17 16:45 07/26/17 16:44 06/28/17 00:59 1 MLS/MIN Cholestyramine Resin (Questran Powder Light) 4 gm QID PO 06/27/17 20:00 07/25/17 21:59 06/28/17 12:13 4 GM Insulin Glargine (Lantus Solostar Pen) 8 units HS SC 06/28/17 21:00 07/28/17 20:59
[2017-06-28] MEDS: LORAZEPAM 2 MG/ML 1 ML VIAL IV PRN (14:21)
[2017-06-28] MEDS ORDERED: POTASSIUM PHOS 3 MMOL/1 ML INFUSION IV ONE (14:45)
[2017-06-28] MEDS ORDERED: POTASSIUM PHOSPHATE INJ 15 MMOL in SODIUM CHLORIDE 0.9% 250ML 250 ML IV ONE (15:00)
[2017-06-28 16:16] VITALS: BP 125/74; PULSE 58; TEMP 36.5; O2SAT 98
[2017-06-28] MEDS: AMITRIPTYLINE HCL 25 MG TAB PO SCH (20:39)
[2017-06-28] MEDS ORDERED: INSULIN GLARGINE SOLOSTAR 100 UNITS/ML 3 ML PEN SC SCH (21:00)
[2017-06-28 23:53] VITALS: BP 154/84; PULSE 54; TEMP 36.6; O2SAT 98
[2017-06-29] MEDS: MoRPHine SULFATE 4 MG/ML 1 ML CARP\\VIAL IV PRN ×3 (00:03→21:58)
[2017-06-29] MEDS: SODIUM CHLORIDE 0.9% 1000ML 1,000 ML IV SCH ×2 (05:31→17:48)
[2017-06-29 06:36] LABS: HEMATOCRIT 37.1 % (42-52); MEAN CELL VOLUME 90.5 fL (80-100); MEAN CORPUSCULAR HEMOGLOBIN 30.2 pg (25-34); MEAN CORPUSCULAR HGB CONC 33.4 g/dl (32-36); MEAN PLATELET VOLUME 10.1 fL (7.4-10.4); PLATELET COUNT 161 K/uL (130-400)
[2017-06-29 07:06] VITALS: BP 158/76; PULSE 54; TEMP 36.3; O2SAT 99
[2017-06-29 07:12] LABS: BUN/CREATININE RATIO 8.2 (10-20); CALCIUM 8.7 mg/dl (8.5-10.1); CREATININE 1.1 mg/dl (0.60-1.40); MAGNESIUM 1.7 mg/dl (1.8-2.4); POTASSIUM 3.9 mmol/L (3.5-5.1)
[2017-06-29 07:13] LABS: PHOSPHORUS 2.7 mg/dl (2.5-4.9)
[2017-06-29] MEDS: ISOSORBIDE MONONITRATE 60 MG TABCR PO SCH (07:55)
[2017-06-29] MEDS: HYDROCORTISONE 10 MG TAB PO SCH ×2 (07:55→17:49)
[2017-06-29] MEDS: FLUOXETINE HCL 20 MG CAP PO SCH (07:55)
[2017-06-29] MEDS: PANCREAZE (LIPASE 10,500U) CAP PO SCH ×3 (07:55→17:48)
[2017-06-29] MEDS: ATORVASTATIN 40 MG TAB PO SCH (07:56)
[2017-06-29] MEDS: CLONIDINE HCL 0.1 MG TAB PO SCH ×2 (07:56→20:22)
[2017-06-29] MEDS: RANITIDINE HCL 150 MG TAB PO SCH ×2 (07:56→20:22)
[2017-06-29] MEDS: DIPHENOXYLATE/ATROPINE 2.5/0.025MG TAB PO SCH ×3 (07:56→20:22)
[2017-06-29] MEDS: MAGNESIUM OXIDE 400 MG TAB PO SCH ×2 (07:57→20:23)
[2017-06-29] MEDS: CHOLESTYRAMINE LIGHT 4 GM PKT PO SCH ×4 (07:58→21:58)
[2017-06-29 08:30] VITALS: O2SAT 99
[2017-06-29] MEDS: INSULIN ASPART 100 UNITS/ML 3 ML PEN SC SCH ×4 (09:26→20:20)
[2017-06-29 11:14] VITALS: BP 145/81; PULSE 76
--- NOTE | 2017-06-29 11:56 | Pharmacy Progress Note ---
Glycemic Control Progress Note Date of Service Jun 29, 2017. Scope Glycemic Pharmacist consulted for glycemic control to write orders per [facility] inpatient glycemic control protocol. Objective Accuchecks BSG (last 24hrs): Test 06/28/17 11:27 06/28/17 16:28 06/28/17 19:49 06/29/17 06:12 Bedside Glucose 105 mg/dl (70-99) 164 mg/dl (70-99) 99 mg/dl (70-99) Random Glucose 74 mg/dl (70-99) Test 06/29/17 07:30 06/29/17 07:43 Bedside Glucose 68 mg/dl (70-99) 70 mg/dl (70-99) Recent Pertinent Medications The patient is currently receiving: * Basal insulin: Lantus 8 units every 24 hours in the evening * Correctional Insulin: Novolog Correction per scale ACHS Goal Range: Low 120 mg/dL - High 140 mg/dL Correction Factor: 20 mg/dL/unit * Prandial insulin: Per carb ratio of 1 unit per 6 grams CHO consumed Outpatient Anti-Diabetic Meds Lantus 10-20 units/day Humalog ACHS (max of 40 units/day) Assessment & Plan ASSESSMENT: * See progress note from 06/25/17 for more background info, in short: Mr Urbina is a62 y/o M admitted with recurrent diarrhea after stopping his medications. He is well known to the glycemic service. While hospitalized, the patient typically requires insulin at first and then his requirements decrease. * Pt receiving SQ basal bolus insulin regimen for hyperglycemia secondary to baseline DM (outpatient regimen on hold), and steroids (patient currently on his home dose) * Patient is currently receiving an average of 30 units of insulin per day * 8 units of basal insulin * 23 units of prandial/correctional insulin * BSGs ranging 83 - 164 mg/dl over the past 24hrs * Changes needed to insulin regimen: * AM Fasting BSG = 70 mg/dl. This is in slightly below goal range for patient based on inpatient targets and co-morbidities. Therefore Basal insulin will be decreased from 8 units to 5 units. This is in line with previous admissions. * Post-prandial BSGs appear to be stable throughout the day with the exception of dinner (elevated yesterday). Due to the patient's lower blood sugars, loosened parameters slightly. * Total daily dose = 30 units. Due to the patient's lowered blood sugars, a lower total daily dose may be necessary. PLAN FOR INPATIENT GLYCEMIC CONTROL: * DECREASING Lantus to 5 units SQ HS * LOOSENING correction factor to 25 mg/dl/unit * LOOSENING carb ratio to 1 unit per 6 grams CHO consumed * Continuing goal range of Low 120 mg/dL - High 140 mg/dL RECOMMENDATIONS FOR DISCHARGE: * Due to patient's co-morbidities, A1C is likely adequate control. May continue home regimen. * Please note that the plan above was derived based on current level of insulin resistance and hospital stress. These recommendations are appropriate for inpatient admission only. Plan of care upon discharge will need to be reassessed to avoid potential outpatient hypo/hyperglycemia. Thank you.
[2017-06-29] MEDS: TIOTROPIUM BROMIDE 5 PUFF/90 MCG INH INH SCH (11:57)
[2017-06-29] MEDS: ASPIRIN 81 MG CHEW PO SCH (11:57)
--- NOTE | 2017-06-29 13:55 | Gastroenterology Progress Note ---
Progress Note Date of Service: Jun 29, 2017 Subjective Pt evaluation today including: conversation w/ patient, physical exam, chart review, lab review No acute events overnight. Pt was seen and evaluated. GI asked to re-evaluate as loose stools persisted. Pt tells me he is having 7-10 BMs daily. No black or bloody stools. Mild abdominal cramping with BMs. Stools negative at admission. He has been eating a regular diet without any issues. No fever, chills, chest pain, SOB Review of Systems Constitutional: No fever, No chills Respiratory: No cough Cardiac: No chest pain Abdomen: + pain, + diarrhea, No nausea, No vomiting, No constipation, No GI bleeding Medications Current Inpatient Medications Medications (Trade) Dose Ordered Sig/Tisha Route Start Time Stop Time Status Last Admin Dose Admin Acetaminophen (Tylenol Tab) 650 mg Q4H PRN PO 06/25/17 17:45 07/25/17 17:44 Ondansetron HCl (Zofran Inj) 4 mg Q6H PRN IV 06/25/17 17:45 07/25/17 17:44 06/27/17 08:54 4 MG Sodium Chloride 1,000 ml @ 75 mls/hr [id number] IV 06/25/17 18:00 07/25/17 17:59 06/29/17 05:31 75 MLS/HR Insulin Aspart (novoLOG ASPART) SLIDING SCALE If C... ACHS SC 06/25/17 21:00 07/25/17 20:59 06/29/17 12:59 12 UNITS Glucose (Glucose 40% Gel) 15-30 GRAMS 15 GRAMS... UD PRN PO 06/25/17 18:30 07/25/17 18:29 Glucose (Glucose Chew Tab) 4-8 Tablets 4 Tabl... UD PRN PO 06/25/17 18:30 07/25/17 18:29 Dextrose (Dextrose 50% 50ML Syringe) 25-50ML OF 50% DW IV FOR... UD PRN IV 06/25/17 18:30 07/25/17 18:29 Glucagon (Glucagon Inj) 1 mg UD PRN SQ 06/25/17 18:30 07/25/17 18:29 Miscellaneous Information (Consult Glycemic Management Pharmacy) 1 ea UD PRN N/A 06/25/17 18:41 07/25/17 18:40 Lorazepam (Ativan Inj) 0.5 mg Q8H PRN IV 06/25/17 18:45 07/25/17 18:44 06/28/17 14:21 0.5 MG Morphine Sulfate (MoRPHine SULFATE INJ) 4 mg Q4H PRN IV 06/25/17 18:45 07/09/17 18:44 06/29/17 13:03 4 MG Aspirin (Aspirin Chew) 81 mg QAM PO 06/26/17 09:00 07/26/17 08:59 06/29/17 11:57 81 MG Atorvastatin Calcium (Lipitor Tab) 80 mg QAM PO 06/26/17 09:00 07/26/17 08:59 06/29/17 07:56 80 MG Fluoxetine HCl (Prozac Cap) 20 mg QAM PO 06/26/17 09:00 07/26/17 08:59 06/29/17 07:55 20 MG Hydrocortisone (Cortef Tab) 10 mg DAILYBD PO 06/26/17 16:00 07/26/17 15:59 06/28/17 16:19 10 MG Hydrocortisone (Cortef Tab) 20 mg QDB PO 06/26/17 07:30 07/26/17 07:59 06/29/17 07:55 20 MG Isosorbide Mononitrate (Imdur Ext Rel Tab) 60 mg QAM PO 06/26/17 09:00 07/26/17 08:59 06/29/17 07:55 60 MG Magnesium Oxide (Mag-Ox Tab) 400 mg BID PO 06/25/17 21:00 07/25/17 20:59 06/29/17 07:57 400 MG Ranitidine HCl (zANTac TAB) 150 mg BID PO 06/25/17 21:00 07/25/17 20:59 06/29/17 07:56 150 MG Tiotropium [place] (Spiriva Handihaler Inhaler) 1 puff DAILY INH 06/26/17 09:00 07/26/17 08:59 06/29/17 11:57 1 PUFF Miscellaneous Information (Order Awaiting Action) 1 ea QS N/A 06/26/17 00:00 07/26/17 00:00 Amylase/Lipase/ Protease (Pancreaze (Lipase 10,500U) Cap) 1 cap BID PRN PO 06/25/17 19:00 07/25/17 18:59 06/26/17 14:28 1 CAP Amylase/Lipase/ Protease (Pancreaze (Lipase 10,500U) Cap) 2 cap TIDM PO 06/26/17 07:30 07/26/17 07:59 06/29/17 11:59 2 CAP Albuterol/ Ipratropium (Duoneb) 3 ml Q4R PRN INH 06/25/17 18:45 07/25/17 18:44 Diphenoxylate HCl/ Atropine (Lomotil Tab) 2 tab TID PO 06/26/17 14:00 07/26/17 13:59 06/29/17 07:56 2 TAB Amitriptyline HCl (Elavil Tab) 25 mg HS PO 06/26/17 21:00 07/26/17 20:59 06/28/17 20:39 25 MG Clonidine HCl (Catapres Tab) 0.05 mg BID PO 06/26/17 20:00 07/26/17 20:59 06/29/17 07:56 0.05 MG Lorazepam 0.5 mg/ Syringe 1 ml @ 1 mls/min Q8 PRN IV 06/26/17 16:45 07/26/17 16:44 06/28/17 23:22 1 MLS/MIN Cholestyramine Resin (Questran Powder Light) 4 gm QID PO 06/27/17 20:00 07/25/17 21:59 06/29/17 11:58 4 GM Insulin Glargine (Lantus Solostar Pen) 5 units HS SC 06/29/17 21:00 07/29/17 20:59 Magnesium Sulfate 1 gm/Prmx 100 ml @ 100 mls/hr Q1H IV 06/29/17 14:00 06/29/17 15:59 Objective Vital Signs Date Time Temp Pulse Resp B/P (MAP) Pulse Ox O2 Delivery O2 Flow Rate FiO2 06/29/17 11:14 76 06/29/17 08:30 99 Room Air 06/29/17 07:06 36.3 54 18 158/76 (103) 99 Room Air 06/29/17 00:00 Room Air 06/28/17 23:53 36.6 54 20 154/84 (107) 98 Room Air 06/28/17 16:16 36.5 58 20 125/74 (91) 98 Room Air 06/28/17 15:30 Room Air Physical Exam General Appearance: no apparent distress Eyes: PERRL ENT: hearing grossly normal Neck: supple Respiratory/Chest: lungs clear Cardiovascular: regular rate, rhythm Abdomen: normal bowel sounds, soft, no organomegaly, + tenderness Neurologic/Psych: alert, normal mood/affect, oriented x 3 Skin: normal color Laboratory Results Last 24 Hours Test 06/28/17 16:28 06/28/17 19:49 06/29/17 06:12 06/29/17 07:30 Bedside Glucose 164 mg/dl 99 mg/dl 68 mg/dl White Blood Count 8.40 K/uL Red Blood Count 4.10 M/uL Hemoglobin 12.4 g/dL Hematocrit 37.1 % Mean Corpuscular Volume 90.5 fL Mean Corpuscular Hemoglobin 30.2 pg Mean Corpuscular Hemoglobin Concent 33.4 g/dl RDW Standard Deviation 51.7 fL RDW Coefficient of Variation 15.6 % Platelet Count 161 K/uL Mean Platelet Volume 10.1 fL Sodium Level 142 mmol/L Potassium Level 3.9 mmol/L Chloride Level 111 mmol/L Carbon Dioxide Level 26 mmol/L Anion Gap 5.0 mmol/L Blood Urea Nitrogen 9 mg/dl Creatinine 1.10 mg/dl Est Creatinine Clear Calc Drug Dose 69.7 ml/min Estimated GFR () 82.9 Estimated GFR (Non- 71.6 BUN/Creatinine Ratio 8.2 Random Glucose 74 mg/dl Calcium Level 8.7 mg/dl Phosphorus Level 2.7 mg/dl Magnesium Level 1.7 mg/dl Test 06/29/17 07:43 06/29/17 11:38 Bedside Glucose 70 mg/dl 104 mg/dl Assessment and Plan Patient is a 62 year old male w admitted w c/o diarrhea, abd pain, weakness, noted to have several electrolyte abnormalities at admission which is improving. He has chronic diarrhea which is suspected to be multifactorial: microscopic colitis, DM, pancreatic insufficiency ? remote suspicion of possible UC. Since admission however pt doesn't appear to be having any BMs and GI signed off. Reconsulted for diarrhea on 06/29/17. Pt with 10 BMs, no black/ bloody stools. Last admission, he responded well to a short course of budesonide. - Re-check stool cx, Cdiff if loose stools - Ok to DC Octreotide - Continue pancreas enzymes - Questran 4g BID. - Lomotil 2g TID, - Clonidine 0.05mg BID - Amitriptyline 25mg QHS - Trial Entocort 9 mg once daily - Monitor electrolytes and correction per primary team. GI to sign off. ATTESTATION: I have performed a history and physical examination of this patient and reviewed the electronic record. Specifically, on history his diarrhea appears to have returned after stopping budesonide. I have discussed the case with NICOLAS Ardon. The above note reflects my findings, conclusions, and recommendations. Andrea Pacheco MD
[2017-06-29] MEDS: MAGNESIUM SULFATE 1GM / D5W 1 GM in PREMIXED IN D5W 100 ML IV SCH ×2 (14:45→16:15)
[2017-06-29 15:35] VITALS: BP_SYST 108; BP_SYST 117; BP_SYST 132; BP_DIAS 71; BP_DIAS 75; BP_DIAS 78; PULSE 58; PULSE 60; TEMP 36.4; O2SAT 98
--- NOTE | 2017-06-29 17:57 | Progress Note ---
Medicine Progress Note Date & Time of Visit: Jun 29, 2017 at 17:41. Subjective Pt was seen and examined Lying in bed with no distress pt said that he already had about 6 episodes of watery diet he said that his abdomen is tender he has not been eating much denies any chest pain, palpitation, dizziness and SOB Objective Last 8 Hrs Date Time Temp Pulse Resp B/P (MAP) Pulse Ox O2 Delivery O2 Flow Rate FiO2 06/29/17 15:35 36.4 60 16 132/78 (96) 98 Room Air 58 117/75 (89) 58 108/71 (83) 06/29/17 14:54 Room Air 06/29/17 11:14 76 Physical Exam: General- No acute distress Head- atraumatic Eyes- PERRL, EOMI ENT- oropharynx clear Neck- supple, no JVD Lungs- clear to auscultation Heart- regular rhythm; no murmur Abdomen- normal bowel sounds, +tenderness Extremities- no calf tenderness Neuro- alert, oriented x 3; PERRL, EOMI; no facial palsy Skin- warm & dry Laboratory Results: Last 24 Hours Test 06/28/17 19:49 06/29/17 06:12 06/29/17 07:30 06/29/17 07:43 Bedside Glucose 99 mg/dl 68 mg/dl 70 mg/dl White Blood Count 8.40 K/uL Red Blood Count 4.10 M/uL Hemoglobin 12.4 g/dL Hematocrit 37.1 % Mean Corpuscular Volume 90.5 fL Mean Corpuscular Hemoglobin 30.2 pg Mean Corpuscular Hemoglobin Concent 33.4 g/dl RDW Standard Deviation 51.7 fL RDW Coefficient of Variation 15.6 % Platelet Count 161 K/uL Mean Platelet Volume 10.1 fL Sodium Level 142 mmol/L Potassium Level 3.9 mmol/L Chloride Level 111 mmol/L Carbon Dioxide Level 26 mmol/L Anion Gap 5.0 mmol/L Blood Urea Nitrogen 9 mg/dl Creatinine 1.10 mg/dl Est Creatinine Clear Calc Drug Dose 69.7 ml/min Estimated GFR () 82.9 Estimated GFR (Non- 71.6 BUN/Creatinine Ratio 8.2 Random Glucose 74 mg/dl Calcium Level 8.7 mg/dl Phosphorus Level 2.7 mg/dl Magnesium Level 1.7 mg/dl Test 06/29/17 11:38 06/29/17 16:28 Bedside Glucose 104 mg/dl 146 mg/dl Assessment & Plan CHRONIC DIARRHEA Hx of chronic collagenous diarrhea and microscopic colitis Has recurrent admission for diarrhea Most recent admission to [facility] 05/22 - 05/31 - patient's Questran and Lomotil were increased and was started on amitriptyline, budesonide, clonidine, and Pepto Bismol and continued on Vanco taper from prior C. Diff infection Patient self stopped the new medications as well as the Vanco CT abd/pelvis showed no evidence of bowel obstruction, no evidence of free air. nonspecific infiltration of the left mid abdominal small bowel mesentery. Stool negative for C-diff Continue IVF, pain management GI on board Continue to have watery diarrhea GI recommended a trial Entocort 9mg daily and to recheck for Cdiff if diarrhea persists Continue pancreas enzymes, Questran 4g BID, Lomotil 2g TID, Clonidine 0.05mg BID and Amitriptyline 25mg QHS continue monitor electrolytes and replaced if depleted CRISTIAN Prerenal due to GI loss from persistent diarrhea continue IVF Resolved Continue follow up BMP ELECTROLYTES IMBALANCE low phos and LOW Mg+ and Low K Related to GI loss with diarrhea Mg was 1.7 today, replaced Continue monitor GENERALIZED WEAKNESS Due to electrolytes abnormality and diarrhea PT HYPERCALCEMIA Ca level 8.7 Resolved ADRENAL INSUFFICIENCY BP currently stable continue home dose PO hydrocortisone low threshold for stress dose steroids Stopped follow Endocrine Dr Salamanca planning to see Dr Hammer, plan to make an appointment Pt was advised to see endocrinology upon discharge CAD Denies any chest pain continue nitrate, ASA, and statin Not on BB due to bradycardia episodes stable COPD Asymptomatic counseling on smoking cessation continue home inhalers, PRN nebs HTN BP controlled Continue isosorbide Lisinopril on hold due to CRISTIAN DM Hba1c 7.5 on 04/2017 Continue insulin on insulin coverage pharmacy on board for glycemic contol DVT PROPHYLAXIS SCDs DISPOSITION Discharge home when medically stable Consultants: Gastro Current Inpatient Medications: Current Inpatient Medications Medications (Trade) Dose Ordered Sig/Tisha Route Start Time Stop Time Status Last Admin Dose Admin Acetaminophen (Tylenol Tab) 650 mg Q4H PRN PO 06/25/17 17:45 07/25/17 17:44 Ondansetron HCl (Zofran Inj) 4 mg Q6H PRN IV 06/25/17 17:45 07/25/17 17:44 06/27/17 08:54 4 MG Sodium Chloride 1,000 ml @ 75 mls/hr [id number] IV 06/25/17 18:00 07/25/17 17:59 06/29/17 05:31 75 MLS/HR Insulin Aspart (novoLOG ASPART) SLIDING SCALE If C... ACHS SC 06/25/17 21:00 07/25/17 20:59 06/29/17 12:59 12 UNITS Glucose (Glucose 40% Gel) 15-30 GRAMS 15 GRAMS... UD PRN PO 06/25/17 18:30 07/25/17 18:29 Glucose (Glucose Chew Tab) 4-8 Tablets 4 Tabl... UD PRN PO 06/25/17 18:30 07/25/17 18:29 Dextrose (Dextrose 50% 50ML Syringe) 25-50ML OF 50% DW IV FOR... UD PRN IV 06/25/17 18:30 07/25/17 18:29 Glucagon (Glucagon Inj) 1 mg UD PRN SQ 06/25/17 18:30 07/25/17 18:29 Miscellaneous Information (Consult Glycemic Management Pharmacy) 1 ea UD PRN N/A 06/25/17 18:41 07/25/17 18:40 Lorazepam (Ativan Inj) 0.5 mg Q8H PRN IV 06/25/17 18:45 07/25/17 18:44 06/28/17 14:21 0.5 MG Morphine Sulfate (MoRPHine SULFATE INJ) 4 mg Q4H PRN IV 06/25/17 18:45 07/09/17 18:44 06/29/17 13:03 4 MG Aspirin (Aspirin Chew) 81 mg QAM PO 06/26/17 09:00 07/26/17 08:59 06/29/17 11:57 81 MG Atorvastatin Calcium (Lipitor Tab) 80 mg QAM PO 06/26/17 09:00 07/26/17 08:59 06/29/17 07:56 80 MG Fluoxetine HCl (Prozac Cap) 20 mg QAM PO 06/26/17 09:00 07/26/17 08:59 06/29/17 07:55 20 MG Hydrocortisone (Cortef Tab) 10 mg DAILYBD PO 06/26/17 16:00 07/26/17 15:59 06/28/17 16:19 10 MG Hydrocortisone (Cortef Tab) 20 mg QDB PO 06/26/17 07:30 07/26/17 07:59 06/29/17 07:55 20 MG Isosorbide Mononitrate (Imdur Ext Rel Tab) 60 mg QAM PO 06/26/17 09:00 07/26/17 08:59 06/29/17 07:55 60 MG Magnesium Oxide (Mag-Ox Tab) 400 mg BID PO 06/25/17 21:00 07/25/17 20:59 06/29/17 07:57 400 MG Ranitidine HCl (zANTac TAB) 150 mg BID PO 06/25/17 21:00 07/25/17 20:59 06/29/17 07:56 150 MG Tiotropium [place] (Spiriva Handihaler Inhaler) 1 puff DAILY INH 06/26/17 09:00 07/26/17 08:59 06/29/17 11:57 1 PUFF Miscellaneous Information (Order Awaiting Action) 1 ea QS N/A 06/26/17 00:00 07/26/17 00:00 Amylase/Lipase/ Protease (Pancreaze (Lipase 10,500U) Cap) 1 cap BID PRN PO 06/25/17 19:00 07/25/17 18:59 06/26/17 14:28 1 CAP Amylase/Lipase/ Protease (Pancreaze (Lipase 10,500U) Cap) 2 cap TIDM PO 06/26/17 07:30 07/26/17 07:59 06/29/17 11:59 2 CAP Albuterol/ Ipratropium (Duoneb) 3 ml Q4R PRN INH 06/25/17 18:45 07/25/17 18:44 Diphenoxylate HCl/ Atropine (Lomotil Tab) 2 tab TID PO 06/26/17 14:00 07/26/17 13:59 06/29/17 14:31 2 TAB Amitriptyline HCl (Elavil Tab) 25 mg HS PO 06/26/17 21:00 07/26/17 20:59 06/28/17 20:39 25 MG Clonidine HCl (Catapres Tab) 0.05 mg BID PO 06/26/17 20:00 07/26/17 20:59 06/29/17 07:56 0.05 MG Lorazepam 0.5 mg/ Syringe 1 ml @ 1 mls/min Q8 PRN IV 06/26/17 16:45 07/26/17 16:44 06/28/17 23:22 1 MLS/MIN Cholestyramine Resin (Questran Powder Light) 4 gm QID PO 06/27/17 20:00 07/25/17 21:59 06/29/17 11:58 4 GM Insulin Glargine (Lantus Solostar Pen) 5 units HS SC 06/29/17 21:00 07/29/17 20:59 Budesonide (Entocort EC Cap) 9 mg QAM PO 06/30/17 08:00 07/30/17 07:59
[2017-06-29] MEDS: AMITRIPTYLINE HCL 25 MG TAB PO SCH (20:24)
[2017-06-29] MEDS ORDERED: INSULIN GLARGINE SOLOSTAR 100 UNITS/ML 3 ML PEN SC SCH ×2 (21:00)
[2017-06-29] MEDS: ONDANSETRON INJ 2 MG/ML 2 ML VIAL IV PRN (21:58)
[2017-06-29] MEDS: LORAZEPAM INJ 0.5 MG in SYRINGE 0.75 ML IV PRN (21:58)
[2017-06-30 00:10] VITALS: BP_SYST 147; BP_SYST 152; BP_SYST 169; BP_DIAS 81; BP_DIAS 82; BP_DIAS 84; PULSE 61; TEMP 36.4; O2SAT 99
[2017-06-30] MEDS: MoRPHine SULFATE 4 MG/ML 1 ML CARP\\VIAL IV PRN ×4 (03:18→23:50)
[2017-06-30] MEDS: SODIUM CHLORIDE 0.9% 1000ML 1,000 ML IV SCH ×2 (06:09→19:39)
[2017-06-30 07:23] VITALS: BP_SYST 123; BP_SYST 124; BP_SYST 143; BP_DIAS 79; BP_DIAS 84; PULSE 55; PULSE 56; TEMP 36.6; O2SAT 95
[2017-06-30] MEDS: PANCREAZE (LIPASE 10,500U) CAP PO SCH ×3 (07:37→17:40)
[2017-06-30] MEDS: ASPIRIN 81 MG CHEW PO SCH (07:37)
[2017-06-30] MEDS: ATORVASTATIN 40 MG TAB PO SCH (07:38)
[2017-06-30] MEDS: ISOSORBIDE MONONITRATE 60 MG TABCR PO SCH (07:38)
[2017-06-30] MEDS: RANITIDINE HCL 150 MG TAB PO SCH ×2 (07:38→21:07)
[2017-06-30] MEDS: HYDROCORTISONE 10 MG TAB PO SCH ×2 (07:38→15:58)
[2017-06-30] MEDS: FLUOXETINE HCL 20 MG CAP PO SCH (07:38)
[2017-06-30] MEDS: CLONIDINE HCL 0.1 MG TAB PO SCH ×2 (07:39→21:13)
[2017-06-30] MEDS: CHOLESTYRAMINE LIGHT 4 GM PKT PO SCH ×4 (07:39→21:05)
[2017-06-30] MEDS: MAGNESIUM OXIDE 400 MG TAB PO SCH ×2 (07:39→21:07)
[2017-06-30] MEDS: DIPHENOXYLATE/ATROPINE 2.5/0.025MG TAB PO SCH ×3 (07:39→21:06)
[2017-06-30] MEDS: TIOTROPIUM BROMIDE 5 PUFF/90 MCG INH INH SCH (07:40)
[2017-06-30] MEDS: BUDESONIDE EC 3 MG CAP PO SCH (07:49)
[2017-06-30 08:08] LABS: BUN/CREATININE RATIO 6.9 (10-20); CALCIUM 8.5 mg/dl (8.5-10.1); CREATININE 1.1 mg/dl (0.60-1.40); MAGNESIUM 1.8 mg/dl (1.8-2.4); PHOSPHORUS 2.7 mg/dl (2.5-4.9); POTASSIUM 3.5 mmol/L (3.5-5.1)
--- NOTE | 2017-06-30 08:31 | Pharmacy Progress Note ---
Glycemic Control Progress Note Date of Service Jun 30, 2017. Scope Glycemic Pharmacist consulted for glycemic control to write orders per [facility] inpatient glycemic control protocol. Objective Accuchecks BSG (last 24hrs): Test 06/29/17 11:38 06/29/17 16:28 06/29/17 20:11 06/29/17 20:32 Bedside Glucose 104 mg/dl (70-99) 146 mg/dl (70-99) 52 mg/dl (70-99) 89 mg/dl (70-99) Test 06/30/17 06:55 06/30/17 07:38 Random Glucose 93 mg/dl (70-99) Bedside Glucose 88 mg/dl (70-99) Recent Pertinent Medications The patient is currently receiving: * Basal insulin: No basal * Correctional Insulin: Novolog Correction per scale ACHS Goal Range: Low 120 mg/dL - High 140 mg/dL Correction Factor: 25 mg/dL/unit * Prandial insulin: Per carb ratio of 1 unit per 8 grams CHO consumed Outpatient Anti-Diabetic Meds Lantus 10-20 units daily Humalog ACHS (max of 40 units/day) Assessment & Plan ASSESSMENT: * See progress note from 06/25/17 for more background info, in short: Mr Urbina is a62 y/o M admitted with recurrent diarrhea after stopping his medications. He is well known to the glycemic service. While hospitalized, the patient typically requires insulin at first and then his requirements decrease. * Pt receiving SQ basal bolus insulin regimen for hyperglycemia secondary to baseline DM (outpatient regimen on hold), and steroids (patient currently on his home dose) * Patient is currently receiving an average of 30-40 units of insulin per day * 0 units of basal insulin yesterday * 40 units of prandial/correctional insulin * BSGs ranging 52-146 mg/dl over the past 24hrs * Changes needed to insulin regimen: * AM Fasting BSG = 88 mg/dl. This is in slightly below goal range for patient based on inpatient targets and co-morbidities. Yesterday evening, the patient had a low blood sugar at 52 mg/dL. This is most likely attributed to too aggressive carbohydrate ratio. HOWEVER, there was also too much basal involved as well. The basal insulin was held last night. In order to prevent additional lows today, a scale of Lantus was established for this evening (similar to a previous admission). * Post-prandial BSGs appear to be stable throughout the day with the exception of dinner (elevated yesterday). Patient appears to have too tight of a carbohydrate ratio. This was loosened yesterday evening. This morning it was loosened further to reflect previous admission data. * Total daily dose = 30 units. PLAN FOR INPATIENT GLYCEMIC CONTROL: * DECREASING Lantus to 0-5 units SQ HS (Lantus 0 units if blood sugar 180 mg/dL or less; Lantus 5 units if blood sugar greater than 180 mg/dL) * LOOSENING correction factor to 35 mg/dl/unit * LOOSENING carb ratio to 1 unit per 20 grams CHO consumed * Continuing goal range of Low 120 mg/dL - High 140 mg/dL RECOMMENDATIONS FOR DISCHARGE: * Due to patient's co-morbidities, A1C is likely adequate control. May continue home regimen. * Please note that the plan above was derived based on current level of insulin resistance and hospital stress. These recommendations are appropriate for inpatient admission only. Plan of care upon discharge will need to be reassessed to avoid potential outpatient hypo/hyperglycemia. Thank you.
[2017-06-30] MEDS: INSULIN ASPART 100 UNITS/ML 3 ML PEN SC SCH ×4 (08:40→21:09)
--- NOTE | 2017-06-30 10:09 | Progress Note ---
Medicine Progress Note Date & Time of Visit: Jun 30, 2017 at 10:05. (Cecilia Vogt, P.A.-C.) Subjective Pt seen and examined. Sitting in chair reading the paper. States that he is feeling much better today. Appetite is improving and abd pain is back to baseline of chronic LLQ discomfort. Endorses 3 episodes of diarrhea overnight, which is "way less than usual". Denies lightheadedness, CP, SOB, nausea/vomiting. (Cecilia Vogt, P.A.-C.) Objective Last 8 Hrs Date Time Temp Pulse Resp B/P (MAP) Pulse Ox O2 Delivery O2 Flow Rate FiO2 06/30/17 07:23 36.6 56 16 143/84 (103) 95 Room Air 55 124/79 (94) 55 123/79 (94) Physical Exam: General Appearance: WD/WN, no apparent distress Head: normocephalic, atraumatic Eyes: normal inspection, PERRL ENT: hearing grossly normal Neck: supple, no JVD, no adenopathy Respiratory/Chest: lungs clear to auscultation. No wheezes, rales or rhonci. No respiratory distress or accessory muscle use Cardiovascular: regular rate, rhythm, no murmur, normal peripheral pulses Abdomen/GI: normal bowel sounds, soft, TTP in LLQ. Otherwise non-tender Extremities/Musculoskelatal: normal inspection, no calf tenderness, normal capillary refill, no pedal edema Neurologic/Psych: alert, normal mood/affect, oriented x 3 Skin: normal color, warm/dry Laboratory Results: Last 24 Hours Test 06/29/17 11:38 06/29/17 16:28 06/29/17 20:11 06/29/17 20:32 Bedside Glucose 104 mg/dl 146 mg/dl 52 mg/dl 89 mg/dl Test 06/30/17 06:55 06/30/17 07:38 Sodium Level 143 mmol/L Potassium Level 3.5 mmol/L Chloride Level 111 mmol/L Carbon Dioxide Level 26 mmol/L Anion Gap 6.0 mmol/L Blood Urea Nitrogen 8 mg/dl Creatinine 1.10 mg/dl Est Creatinine Clear Calc Drug Dose 69.7 ml/min Estimated GFR () 82.9 Estimated GFR (Non- 71.6 BUN/Creatinine Ratio 6.9 Random Glucose 93 mg/dl Calcium Level 8.5 mg/dl Phosphorus Level 2.7 mg/dl Magnesium Level 1.8 mg/dl Bedside Glucose 88 mg/dl (Cecilia Vogt, P.A.-C.) Assessment & Plan Chronic diarrhea: improving -Hx of chronic collagenous diarrhea and microscopic colitis -Had recurrent admission for diarrhea at [facility] 05/22 - 05/31 -patient's Questran and Lomotil were increased and was started on amitriptyline, budesonide, clonidine, and Pepto Bismol -continued on Vanco taper from prior C. Diff infection -once home, patient self stopped the new medications as well as the Vanco -CT abd/pelvis showed no evidence of bowel obstruction, no evidence of free air. nonspecific infiltration of the left mid abdominal small bowel mesentery. -Stool negative for C-diff -Continue IVF, pain management -Continues to have watery diarrhea but amount has decreased -Started on a trial of Entocort 9mg daily per GI recs -Continue pancreas enzymes, Questran 4g BID, Lomotil 2g TID, Clonidine 0.05mg BID and Amitriptyline 25mg QHS CRISTIAN: resolved -Prerenal due to GI loss from persistent diarrhea -Continue IVF -Continue follow up BMP Electrolyte imbalances: resolved -Low laurie, Mg on admission. High K. -Related to GI loss with diarrhea -All electrolytes wnl as of today's BMP Generalized Weakness: -Due to electrolytes abnormality and diarrhea -PT Hypercalcemia: resolved -Ca level now 8.7 Adrenal Insufficiency: -BP currently stable -Continue home dose PO hydrocortisone -Low threshold for stress dose steroids -Pt was advised to see endocrinology upon discharge -Planning to see Dr Hammer CAD: -Denies any chest pain -Continue nitrate, ASA, and statin -Not on BB due to bradycardia episodes COPD: -Asymptomatic -Counseling on smoking cessation -Continue home inhalers, PRN nebs HTN: -BP controlled -Continue isosorbide -Lisinopril held due to CRISTIAN DM -Hba1c 7.5 on 04/2017 -Continue insulin -Pharmacy on board for glycemic control DVT Ppx: SCDs Code status: FULL Dispo: Plan to return home once medically stable Consultants: Gastro Current Inpatient Medications: Current Inpatient Medications Medications (Trade) Dose Ordered Sig/Tisha Route Start Time Stop Time Status Last Admin Dose Admin Acetaminophen (Tylenol Tab) 650 mg Q4H PRN PO 06/25/17 17:45 07/25/17 17:44 Ondansetron HCl (Zofran Inj) 4 mg Q6H PRN IV 06/25/17 17:45 07/25/17 17:44 06/29/17 21:58 4 MG Sodium Chloride 1,000 ml @ 75 mls/hr [id number] IV 06/25/17 18:00 07/25/17 17:59 06/30/17 06:09 75 MLS/HR Insulin Aspart (novoLOG ASPART) SLIDING SCALE If C... ACHS SC 06/25/17 21:00 07/25/17 20:59 06/30/17 08:40 6 UNITS Glucose (Glucose 40% Gel) 15-30 GRAMS 15 GRAMS... UD PRN PO 06/25/17 18:30 07/25/17 18:29 Glucose (Glucose Chew Tab) 4-8 Tablets 4 Tabl... UD PRN PO 06/25/17 18:30 07/25/17 18:29 Dextrose (Dextrose 50% 50ML Syringe) 25-50ML OF 50% DW IV FOR... UD PRN IV 06/25/17 18:30 07/25/17 18:29 Glucagon (Glucagon Inj) 1 mg UD PRN SQ 06/25/17 18:30 07/25/17 18:29 Miscellaneous Information (Consult Glycemic Management Pharmacy) 1 ea UD PRN N/A 06/25/17 18:41 07/25/17 18:40 Lorazepam (Ativan Inj) 0.5 mg Q8H PRN IV 06/25/17 18:45 07/25/17 18:44 06/28/17 14:21 0.5 MG Morphine Sulfate (MoRPHine SULFATE INJ) 4 mg Q4H PRN IV 06/25/17 18:45 07/09/17 18:44 06/30/17 03:18 4 MG Aspirin (Aspirin Chew) 81 mg QAM PO 06/26/17 09:00 07/26/17 08:59 06/30/17 07:37 81 MG Atorvastatin Calcium (Lipitor Tab) 80 mg QAM PO 06/26/17 09:00 07/26/17 08:59 06/30/17 07:38 80 MG Fluoxetine HCl (Prozac Cap) 20 mg QAM PO 06/26/17 09:00 07/26/17 08:59 06/30/17 07:38 20 MG Hydrocortisone (Cortef Tab) 10 mg DAILYBD PO 06/26/17 16:00 07/26/17 15:59 06/29/17 17:49 10 MG Hydrocortisone (Cortef Tab) 20 mg QDB PO 06/26/17 07:30 07/26/17 07:59 06/30/17 07:38 20 MG Isosorbide Mononitrate (Imdur Ext Rel Tab) 60 mg QAM PO 06/26/17 09:00 07/26/17 08:59 06/30/17 07:38 60 MG Magnesium Oxide (Mag-Ox Tab) 400 mg BID PO 06/25/17 21:00 07/25/17 20:59 06/30/17 07:39 400 MG Ranitidine HCl (zANTac TAB) 150 mg BID PO 06/25/17 21:00 07/25/17 20:59 06/30/17 07:38 150 MG Tiotropium [place] (Spiriva Handihaler Inhaler) 1 puff DAILY INH 06/26/17 09:00 07/26/17 08:59 06/30/17 07:40 1 PUFF Miscellaneous Information (Order Awaiting Action) 1 ea QS N/A 06/26/17 00:00 07/26/17 00:00 Amylase/Lipase/ Protease (Pancreaze (Lipase 10,500U) Cap) 1 cap BID PRN PO 06/25/17 19:00 07/25/17 18:59 06/26/17 14:28 1 CAP Amylase/Lipase/ Protease (Pancreaze (Lipase 10,500U) Cap) 2 cap TIDM PO 06/26/17 07:30 07/26/17 07:59 06/30/17 07:37 2 CAP Albuterol/ Ipratropium (Duoneb) 3 ml Q4R PRN INH 06/25/17 18:45 07/25/17 18:44 Diphenoxylate HCl/ Atropine (Lomotil Tab) 2 tab TID PO 06/26/17 14:00 07/26/17 13:59 06/30/17 07:39 2 TAB Amitriptyline HCl (Elavil Tab) 25 mg HS PO 06/26/17 21:00 07/26/17 20:59 06/29/17 20:24 25 MG Clonidine HCl (Catapres Tab) 0.05 mg BID PO 06/26/17 20:00 07/26/17 20:59 06/30/17 07:39 0.05 MG Lorazepam 0.5 mg/ Syringe 1 ml @ 1 mls/min Q8 PRN IV 06/26/17 16:45 07/26/17 16:44 06/29/17 21:58 1 MLS/MIN Cholestyramine Resin (Questran Powder Light) 4 gm QID PO 06/27/17 20:00 07/25/17 21:59 06/30/17 07:39 4 GM Budesonide (Entocort EC Cap) 9 mg QAM PO 06/30/17 08:00 07/30/17 07:59 06/30/17 07:49 9 MG Insulin Glargine (Lantus Solostar Pen) SEE PROTOCOL HS SC 06/30/17 21:00 07/30/17 20:59 (Cecilia Vogt ., P.A.-C.) ATTENDING ADDENDUM care coordinated with DONTE Green please refer to her notes for full details, I agree with her notes patient seen and examined, records reviewed by myself as well on exam, patient seen resting in bed, comfortable diarrhea improving denies abdominal pain no other symptoms VS noted and reviewed oriented x 3 , not in distress, speaks in sentences with no effort nor accessory muscle use normal rate, regular rhythm, no murmurs clear breath sounds bilaterally non distended, soft, nontender no bipedal edema, erythema, warmth no neuro deficits k 3.5 crea 1.1 ASSESSMENT/PLAN> RECURRENT DIARRHEA - trial on Entecort in progress will monitor ACUTE RENAL FAILURE - resolved other diagnoses and plan of care as per DONTE Green's notes Ajay Rider MD (Ajay Rider MD)
--- NOTE | 2017-06-30 10:50 | Gastroenterology Progress Note ---
Progress Note Date of Service: Jun 30, 2017 Subjective Pt evaluation today including: conversation w/ patient, physical exam, chart review, lab review Pt was seen and evaluated. Symptoms improved w/ one dose of Entocort. Has had 3 BMs since yesterday. No black or bloody stools. No fever, chills, CP, SOB, abdominal pain. He wants to go home. Review of Systems Constitutional: No fever, No chills Respiratory: No cough, No shortness of breath Cardiac: No chest pain, No edema Abdomen: No pain, No nausea, No vomiting, No diarrhea, No constipation, No GI bleeding Medications Current Inpatient Medications Medications (Trade) Dose Ordered Sig/Tisha Route Start Time Stop Time Status Last Admin Dose Admin Acetaminophen (Tylenol Tab) 650 mg Q4H PRN PO 06/25/17 17:45 07/25/17 17:44 Ondansetron HCl (Zofran Inj) 4 mg Q6H PRN IV 06/25/17 17:45 07/25/17 17:44 06/29/17 21:58 4 MG Sodium Chloride 1,000 ml @ 75 mls/hr [id number] IV 06/25/17 18:00 07/25/17 17:59 06/30/17 06:09 75 MLS/HR Insulin Aspart (novoLOG ASPART) SLIDING SCALE If C... ACHS SC 06/25/17 21:00 07/25/17 20:59 06/30/17 08:40 6 UNITS Glucose (Glucose 40% Gel) 15-30 GRAMS 15 GRAMS... UD PRN PO 06/25/17 18:30 07/25/17 18:29 Glucose (Glucose Chew Tab) 4-8 Tablets 4 Tabl... UD PRN PO 06/25/17 18:30 07/25/17 18:29 Dextrose (Dextrose 50% 50ML Syringe) 25-50ML OF 50% DW IV FOR... UD PRN IV 06/25/17 18:30 07/25/17 18:29 Glucagon (Glucagon Inj) 1 mg UD PRN SQ 06/25/17 18:30 07/25/17 18:29 Miscellaneous Information (Consult Glycemic Management Pharmacy) 1 ea UD PRN N/A 06/25/17 18:41 07/25/17 18:40 Lorazepam (Ativan Inj) 0.5 mg Q8H PRN IV 06/25/17 18:45 07/25/17 18:44 06/28/17 14:21 0.5 MG Morphine Sulfate (MoRPHine SULFATE INJ) 4 mg Q4H PRN IV 06/25/17 18:45 07/09/17 18:44 06/30/17 03:18 4 MG Aspirin (Aspirin Chew) 81 mg QAM PO 06/26/17 09:00 07/26/17 08:59 06/30/17 07:37 81 MG Atorvastatin Calcium (Lipitor Tab) 80 mg QAM PO 06/26/17 09:00 07/26/17 08:59 06/30/17 07:38 80 MG Fluoxetine HCl (Prozac Cap) 20 mg QAM PO 06/26/17 09:00 07/26/17 08:59 06/30/17 07:38 20 MG Hydrocortisone (Cortef Tab) 10 mg DAILYBD PO 06/26/17 16:00 07/26/17 15:59 06/29/17 17:49 10 MG Hydrocortisone (Cortef Tab) 20 mg QDB PO 06/26/17 07:30 07/26/17 07:59 06/30/17 07:38 20 MG Isosorbide Mononitrate (Imdur Ext Rel Tab) 60 mg QAM PO 06/26/17 09:00 07/26/17 08:59 06/30/17 07:38 60 MG Magnesium Oxide (Mag-Ox Tab) 400 mg BID PO 06/25/17 21:00 07/25/17 20:59 06/30/17 07:39 400 MG Ranitidine HCl (zANTac TAB) 150 mg BID PO 06/25/17 21:00 07/25/17 20:59 06/30/17 07:38 150 MG Tiotropium [place] (Spiriva Handihaler Inhaler) 1 puff DAILY INH 06/26/17 09:00 07/26/17 08:59 06/30/17 07:40 1 PUFF Miscellaneous Information (Order Awaiting Action) 1 ea QS N/A 06/26/17 00:00 07/26/17 00:00 Amylase/Lipase/ Protease (Pancreaze (Lipase 10,500U) Cap) 1 cap BID PRN PO 06/25/17 19:00 07/25/17 18:59 06/26/17 14:28 1 CAP Amylase/Lipase/ Protease (Pancreaze (Lipase 10,500U) Cap) 2 cap TIDM PO 06/26/17 07:30 07/26/17 07:59 06/30/17 07:37 2 CAP Albuterol/ Ipratropium (Duoneb) 3 ml Q4R PRN INH 06/25/17 18:45 07/25/17 18:44 Diphenoxylate HCl/ Atropine (Lomotil Tab) 2 tab TID PO 06/26/17 14:00 07/26/17 13:59 06/30/17 07:39 2 TAB Amitriptyline HCl (Elavil Tab) 25 mg HS PO 06/26/17 21:00 07/26/17 20:59 06/29/17 20:24 25 MG Clonidine HCl (Catapres Tab) 0.05 mg BID PO 06/26/17 20:00 07/26/17 20:59 06/30/17 07:39 0.05 MG Lorazepam 0.5 mg/ Syringe 1 ml @ 1 mls/min Q8 PRN IV 06/26/17 16:45 07/26/17 16:44 06/29/17 21:58 1 MLS/MIN Cholestyramine Resin (Questran Powder Light) 4 gm QID PO 06/27/17 20:00 07/25/17 21:59 06/30/17 07:39 4 GM Budesonide (Entocort EC Cap) 9 mg QAM PO 06/30/17 08:00 07/30/17 07:59 06/30/17 07:49 9 MG Insulin Glargine (Lantus Solostar Pen) SEE PROTOCOL HS SC 06/30/17 21:00 07/30/17 20:59 Objective Vital Signs Date Time Temp Pulse Resp B/P (MAP) Pulse Ox O2 Delivery O2 Flow Rate FiO2 06/30/17 07:23 36.6 56 16 143/84 (103) 95 Room Air 55 124/79 (94) 55 123/79 (94) 06/30/17 00:10 Room Air 06/30/17 00:10 36.4 61 16 147/84 (105) 99 Room Air 169/81 (110) 152/82 (105) 06/29/17 20:05 Room Air 06/29/17 15:35 36.4 60 16 132/78 (96) 98 Room Air 58 117/75 (89) 58 108/71 (83) 06/29/17 14:54 Room Air 06/29/17 11:14 76 Physical Exam General Appearance: no apparent distress Eyes: PERRL ENT: hearing grossly normal Neck: supple Respiratory/Chest: lungs clear Cardiovascular: regular rate, rhythm Abdomen: normal bowel sounds, non tender, soft, no organomegaly Neurologic/Psych: alert, normal mood/affect, oriented x 3 Skin: normal color Laboratory Results Last 24 Hours Test 06/29/17 11:38 06/29/17 16:28 06/29/17 20:11 06/29/17 20:32 Bedside Glucose 104 mg/dl 146 mg/dl 52 mg/dl 89 mg/dl Test 06/30/17 06:55 06/30/17 07:38 06/30/17 09:49 Sodium Level 143 mmol/L Potassium Level 3.5 mmol/L Chloride Level 111 mmol/L Carbon Dioxide Level 26 mmol/L Anion Gap 6.0 mmol/L Blood Urea Nitrogen 8 mg/dl Creatinine 1.10 mg/dl Est Creatinine Clear Calc Drug Dose 69.7 ml/min Estimated GFR () 82.9 Estimated GFR (Non- 71.6 BUN/Creatinine Ratio 6.9 Random Glucose 93 mg/dl Calcium Level 8.5 mg/dl Phosphorus Level 2.7 mg/dl Magnesium Level 1.8 mg/dl Bedside Glucose 88 mg/dl Assessment and Plan Patient is a 62 year old male w admitted w c/o diarrhea, abd pain, weakness, noted to have several electrolyte abnormalities at admission which is improving. He has chronic diarrhea which is suspected to be multifactorial: microscopic colitis, DM, pancreatic insufficiency ? remote suspicion of possible UC. Since admission however pt doesn't appear to be having any BMs and GI signed off. Reconsulted for diarrhea on 06/29/17. Pt with 10 BMs, no black/ bloody stools. Last admission, he responded well to a short course of budesonide. - Re-check stool cx, Cdiff if loose stools - Ok to DC Octreotide - Continue pancreas enzymes - Questran 4g BID. - Lomotil 2g TID, - Clonidine 0.05mg BID - Amitriptyline 25mg QHS - Trial Entocort 9 mg once daily x 1 week, Entocort 6 mg daily x 1 week, Entocort 3 mg daily x 1 week - Monitor electrolytes and correction per primary team. GI to sign off. No contraindication to discharge. I have seen , examined and agree with the plan as outlined by NICOLAS Mcelroy as above.-follow up with Dr. Keith, continue entocort in the interim
[2017-06-30 11:09] VITALS: Ht 175.3 cm; Wt 74.0 kg
[2017-06-30 15:54] VITALS: BP_SYST 117; BP_SYST 121; BP_SYST 126; BP_DIAS 72; BP_DIAS 73; BP_DIAS 76; PULSE 60; TEMP 36.6; O2SAT 99
[2017-06-30 19:10] VITALS: BP 145/78; PULSE 75; O2SAT 100
[2017-06-30] MEDS: LORAZEPAM INJ 0.5 MG in SYRINGE 0.75 ML IV PRN (19:18)
[2017-06-30] MEDS ORDERED: INSULIN GLARGINE SOLOSTAR 100 UNITS/ML 3 ML PEN SC SCH (21:00)
[2017-06-30] MEDS: AMITRIPTYLINE HCL 25 MG TAB PO SCH (21:07)
[2017-06-30 21:10] VITALS: BP 150/83; PULSE 65
[2017-07-01 00:08] VITALS: BP_SYST 119; BP_SYST 128; BP_SYST 136; BP_DIAS 66; BP_DIAS 70; BP_DIAS 82; PULSE 60; PULSE 63; TEMP 36.6; O2SAT 99
[2017-07-01] MEDS: MoRPHine SULFATE 4 MG/ML 1 ML CARP\\VIAL IV PRN ×3 (04:59→20:54)
[2017-07-01 07:07] VITALS: BP_SYST 126; BP_SYST 128; BP_SYST 157; BP_DIAS 77; BP_DIAS 84; PULSE 64; PULSE 67; TEMP 36.4; O2SAT 98
[2017-07-01] MEDS: RANITIDINE HCL 150 MG TAB PO SCH ×2 (08:36→21:00)
[2017-07-01] MEDS: CLONIDINE HCL 0.1 MG TAB PO SCH ×2 (08:36→20:58)
[2017-07-01] MEDS: ISOSORBIDE MONONITRATE 60 MG TABCR PO SCH (08:36)
[2017-07-01] MEDS: CHOLESTYRAMINE LIGHT 4 GM PKT PO SCH ×4 (08:36→20:56)
[2017-07-01] MEDS: DIPHENOXYLATE/ATROPINE 2.5/0.025MG TAB PO SCH ×3 (08:37→20:59)
[2017-07-01] MEDS: ATORVASTATIN 40 MG TAB PO SCH (08:37)
[2017-07-01] MEDS: PANCREAZE (LIPASE 10,500U) CAP PO SCH ×3 (08:37→18:20)
[2017-07-01] MEDS: ASPIRIN 81 MG CHEW PO SCH (08:38)
[2017-07-01] MEDS: HYDROCORTISONE 10 MG TAB PO SCH ×2 (08:38→16:05)
[2017-07-01] MEDS: FLUOXETINE HCL 20 MG CAP PO SCH (08:38)
[2017-07-01] MEDS: MAGNESIUM OXIDE 400 MG TAB PO SCH ×2 (08:38→21:00)
[2017-07-01] MEDS: BUDESONIDE EC 3 MG CAP PO SCH (08:38)
[2017-07-01] MEDS: TIOTROPIUM BROMIDE 5 PUFF/90 MCG INH INH SCH (08:38)
[2017-07-01] MEDS: SODIUM CHLORIDE 0.9% 1000ML 1,000 ML IV SCH ×2 (08:43→22:23)
[2017-07-01] MEDS: INSULIN ASPART 100 UNITS/ML 3 ML PEN SC SCH ×4 (08:47→21:08)
[2017-07-01 08:49] LABS: HEMATOCRIT 37.5 % (42-52); MEAN CELL VOLUME 88.9 fL (80-100); MEAN CORPUSCULAR HEMOGLOBIN 29.4 pg (25-34); MEAN CORPUSCULAR HGB CONC 33.1 g/dl (32-36); MEAN PLATELET VOLUME 10.8 fL (7.4-10.4); PLATELET COUNT 193 K/uL (130-400); RED BLOOD COUNT 4.22 M/uL (4.7-6.1); WHITE BLOOD COUNT 11.53 K/uL (4.8-10.8)
--- NOTE | 2017-07-01 09:03 | Pharmacy Progress Note ---
Glycemic Control Progress Note Date of Service Jul 01, 2017. Scope Glycemic Pharmacist consulted for glycemic control to write orders per [facility] inpatient glycemic control protocol. Objective Accuchecks BSG (last 24hrs): Test 06/30/17 11:34 06/30/17 12:30 06/30/17 16:13 06/30/17 19:50 Bedside Glucose 68 mg/dl (70-99) 116 mg/dl (70-99) 248 mg/dl (70-99) 168 mg/dl (70-99) Test 07/01/17 07:42 07/01/17 08:13 Bedside Glucose 81 mg/dl (70-99) Recent Pertinent Medications The patient is currently receiving: * Basal insulin: No basal * Correctional Insulin: Novolog Correction per scale ACHS Goal Range: Low 120 mg/dL - High 140 mg/dL Correction Factor: 35 mg/dL/unit * Prandial insulin: Per carb ratio of 1 unit per 20 grams CHO consumed Outpatient Anti-Diabetic Meds Lantus 10-20 units per day Humalog ACHS according to scale (no more than 40 units/day) Assessment & Plan ASSESSMENT: * See progress note from 06/25/17 for more background info, in short: Mr Urbina is a62 y/o M admitted with recurrent diarrhea after stopping his medications. He is well known to the glycemic service. While hospitalized, the patient typically requires insulin at first and then his requirements decrease. * Pt receiving SQ basal bolus insulin regimen for hyperglycemia secondary to baseline DM (outpatient regimen on hold), and steroids (patient currently on his home dose) * Patient is currently receiving an average of 30-40 units of insulin per day ( yesterday however, he only received 14 units) * 0 units of basal insulin yesterday * 14 units of prandial/correctional insulin * BSGs ranging 68-248 mg/dl over the past 24hrs * Changes needed to insulin regimen: * AM Fasting BSG = 81 mg/dl. This is in slightly below goal range for patient based on inpatient targets and co-morbidities. The patient's blood sugars were lower yesterday until dinner when the patient had a blood sugar of 248 mg/dL. Suspect that this was due to a lack of coverage at lunchtime secondary to lower blood sugar. Patient's blood sugar did decrease from 168 mg/dL last night to 81 mg/dL this morning indicating adequate basal coverage. In order to prevent additional hypoglycemia and rebound hyperglycemia, a scale of Lantus was established for this evening (similar to a previous admission). * Post-prandial BSGs appear to be stable throughout the day with the exception of dinner (elevated yesterday). Patient appears to have too tight of a carbohydrate ratio. This was loosened yesterday evening. The patient's blood sugar increased signficiantly from breakfast to lunch, therefore tightened Novolog parameters slightly. * Total daily dose = 30 units. (later in hospital stay closer to 10-15 units/ day) PLAN FOR INPATIENT GLYCEMIC CONTROL: * CONTINUING Lantus to 0-5 units SQ HS (Lantus 0 units if blood sugar 160 mg/dL or less; Lantus 5 units if blood sugar greater than 160 mg/dL) * TIGHTEN correction factor to 30 mg/dl/unit * TIGHTEN carb ratio of 1 unit per 10 grams CHO consumed * Continuing goal range of Low 120 mg/dL - High 140 mg/dL RECOMMENDATIONS FOR DISCHARGE: * Due to patient's co-morbidities, A1C is likely adequate control. May continue home regimen. * Please note that the plan above was derived based on current level of insulin resistance and hospital stress. These recommendations are appropriate for inpatient admission only. Plan of care upon discharge will need to be reassessed to avoid potential outpatient hypo/hyperglycemia. Thank you.
[2017-07-01 09:25] LABS: BUN/CREATININE RATIO 7.9 (10-20); CALCIUM 8.6 mg/dl (8.5-10.1); MAGNESIUM 1.6 mg/dl (1.8-2.4); PHOSPHORUS 2.2 mg/dl (2.5-4.9); POTASSIUM 3.5 mmol/L (3.5-5.1)
--- NOTE | 2017-07-01 10:31 | Gastroenterology Progress Note ---
Progress Note Date of Service: Jul 01, 2017 Subjective Pt evaluation today including: conversation w/ patient, physical exam, chart review, lab review Pt seen and examined. Getting stool for c.diff and stools became more liquidly. Tells me overall his symptoms are improved. BMs are down to 6-8 times daily as opposed to 20 times daily. No new concerns. He wants to go home. No fever, chills, chest pain, SOB. Review of Systems Constitutional: No fever, No chills Respiratory: No cough, No shortness of breath Cardiac: No chest pain Abdomen: + diarrhea, No pain, No nausea, No vomiting, No constipation, No GI bleeding Medications Current Inpatient Medications Medications (Trade) Dose Ordered Sig/Tisha Route Start Time Stop Time Status Last Admin Dose Admin Acetaminophen (Tylenol Tab) 650 mg Q4H PRN PO 06/25/17 17:45 07/25/17 17:44 Ondansetron HCl (Zofran Inj) 4 mg Q6H PRN IV 06/25/17 17:45 07/25/17 17:44 06/29/17 21:58 4 MG Sodium Chloride 1,000 ml @ 75 mls/hr [id number] IV 06/25/17 18:00 07/25/17 17:59 07/01/17 08:43 75 MLS/HR Insulin Aspart (novoLOG ASPART) SLIDING SCALE If C... ACHS SC 06/25/17 21:00 07/25/17 20:59 07/01/17 08:47 1 UNITS Glucose (Glucose 40% Gel) 15-30 GRAMS 15 GRAMS... UD PRN PO 06/25/17 18:30 07/25/17 18:29 Glucose (Glucose Chew Tab) 4-8 Tablets 4 Tabl... UD PRN PO 06/25/17 18:30 07/25/17 18:29 Dextrose (Dextrose 50% 50ML Syringe) 25-50ML OF 50% DW IV FOR... UD PRN IV 06/25/17 18:30 07/25/17 18:29 Glucagon (Glucagon Inj) 1 mg UD PRN SQ 06/25/17 18:30 07/25/17 18:29 Miscellaneous Information (Consult Glycemic Management Pharmacy) 1 ea UD PRN N/A 06/25/17 18:41 07/25/17 18:40 Lorazepam (Ativan Inj) 0.5 mg Q8H PRN IV 06/25/17 18:45 07/25/17 18:44 06/28/17 14:21 0.5 MG Morphine Sulfate (MoRPHine SULFATE INJ) 4 mg Q4H PRN IV 06/25/17 18:45 07/09/17 18:44 07/01/17 04:59 4 MG Aspirin (Aspirin Chew) 81 mg QAM PO 06/26/17 09:00 07/26/17 08:59 07/01/17 08:38 81 MG Atorvastatin Calcium (Lipitor Tab) 80 mg QAM PO 06/26/17 09:00 07/26/17 08:59 07/01/17 08:37 80 MG Fluoxetine HCl (Prozac Cap) 20 mg QAM PO 06/26/17 09:00 07/26/17 08:59 07/01/17 08:38 20 MG Hydrocortisone (Cortef Tab) 10 mg DAILYBD PO 06/26/17 16:00 07/26/17 15:59 06/30/17 15:58 10 MG Hydrocortisone (Cortef Tab) 20 mg QDB PO 06/26/17 07:30 07/26/17 07:59 07/01/17 08:38 20 MG Isosorbide Mononitrate (Imdur Ext Rel Tab) 60 mg QAM PO 06/26/17 09:00 07/26/17 08:59 07/01/17 08:36 60 MG Magnesium Oxide (Mag-Ox Tab) 400 mg BID PO 06/25/17 21:00 07/25/17 20:59 07/01/17 08:38 400 MG Ranitidine HCl (zANTac TAB) 150 mg BID PO 06/25/17 21:00 07/25/17 20:59 07/01/17 08:36 150 MG Tiotropium Zebulon (Spiriva Handihaler Inhaler) 1 puff DAILY INH 06/26/17 09:00 07/26/17 08:59 07/01/17 08:38 1 PUFF Miscellaneous Information (Order Awaiting Action) 1 ea QS N/A 06/26/17 00:00 07/26/17 00:00 Amylase/Lipase/ Protease (Pancreaze (Lipase 10,500U) Cap) 1 cap BID PRN PO 06/25/17 19:00 07/25/17 18:59 06/26/17 14:28 1 CAP Amylase/Lipase/ Protease (Pancreaze (Lipase 10,500U) Cap) 2 cap TIDM PO 06/26/17 07:30 07/26/17 07:59 07/01/17 08:37 2 CAP Albuterol/ Ipratropium (Duoneb) 3 ml Q4R PRN INH 06/25/17 18:45 07/25/17 18:44 Diphenoxylate HCl/ Atropine (Lomotil Tab) 2 tab TID PO 06/26/17 14:00 07/26/17 13:59 07/01/17 08:37 2 TAB Amitriptyline HCl (Elavil Tab) 25 mg HS PO 06/26/17 21:00 07/26/17 20:59 06/30/17 21:07 25 MG Clonidine HCl (Catapres Tab) 0.05 mg BID PO 06/26/17 20:00 07/26/17 20:59 07/01/17 08:36 0.05 MG Lorazepam 0.5 mg/ Syringe 1 ml @ 1 mls/min Q8 PRN IV 06/26/17 16:45 07/26/17 16:44 06/30/17 19:18 1 MLS/MIN Cholestyramine Resin (Questran Powder Light) 4 gm QID PO 06/27/17 20:00 07/25/17 21:59 07/01/17 08:36 4 GM Budesonide (Entocort EC Cap) 9 mg QAM PO 06/30/17 08:00 07/30/17 07:59 07/01/17 08:38 9 MG Insulin Glargine (Lantus Solostar Pen) SEE PROTOCOL HS SC 06/30/17 21:00 07/30/17 20:59 Magnesium Sulfate 1 gm/Prmx 100 ml @ 100 mls/hr Q1H IV 07/01/17 10:30 07/01/17 12:29 Potassium/ Phosphorus/Sodium (Phospha 250 Neutral 155-852-130 Mg) 2 tab QID PO 07/01/17 12:00 07/31/17 11:59 Objective Vital Signs Date Time Temp Pulse Resp B/P (MAP) Pulse Ox O2 Delivery O2 Flow Rate FiO2 07/01/17 08:00 Room Air 07/01/17 07:07 36.4 67 18 157/77 (103) 98 Room Air 64 126/84 (98) 64 128/77 (94) 07/01/17 00:08 36.6 63 18 136/66 (89) 99 Room Air 60 128/82 (97) 60 119/70 (86) 07/01/17 00:00 Room Air 06/30/17 21:10 65 150/83 (105) 06/30/17 19:10 75 145/78 (100) 100 Room Air 06/30/17 16:00 Room Air 06/30/17 15:54 36.6 60 16 126/76 (93) 99 Room Air 117/73 (88) 121/72 (88) Physical Exam General Appearance: no apparent distress Eyes: PERRL ENT: hearing grossly normal Neck: supple Respiratory/Chest: lungs clear Cardiovascular: regular rate, rhythm Abdomen: normal bowel sounds, non tender, soft, no organomegaly, no pulsatile mass Neurologic/Psych: alert, normal mood/affect, oriented x 3 Skin: normal color Laboratory Results Last 24 Hours Test 06/30/17 10:51 06/30/17 11:34 06/30/17 12:30 06/30/17 16:13 Bedside Glucose 68 mg/dl 116 mg/dl 248 mg/dl Test 06/30/17 19:50 07/01/17 07:42 07/01/17 08:13 Bedside Glucose 168 mg/dl 81 mg/dl White Blood Count 11.53 K/uL Red Blood Count 4.22 M/uL Hemoglobin 12.4 g/dL Hematocrit 37.5 % Mean Corpuscular Volume 88.9 fL Mean Corpuscular Hemoglobin 29.4 pg Mean Corpuscular Hemoglobin Concent 33.1 g/dl RDW Standard Deviation 49.6 fL RDW Coefficient of Variation 15.5 % Platelet Count 193 K/uL Mean Platelet Volume 10.8 fL Sodium Level 143 mmol/L Potassium Level 3.5 mmol/L Chloride Level 111 mmol/L Carbon Dioxide Level 26 mmol/L Anion Gap 6.0 mmol/L Blood Urea Nitrogen 8 mg/dl Creatinine 1.00 mg/dl Est Creatinine Clear Calc Drug Dose 76.6 ml/min Estimated GFR () 93.1 Estimated GFR (Non- 80.3 BUN/Creatinine Ratio 7.9 Random Glucose 81 mg/dl Calcium Level 8.6 mg/dl Phosphorus Level 2.2 mg/dl Magnesium Level 1.6 mg/dl Assessment and Plan Patient is a 62 year old male w admitted w c/o diarrhea, abd pain, weakness, noted to have several electrolyte abnormalities at admission which is improving. He has chronic diarrhea which is suspected to be multifactorial: microscopic colitis, DM, pancreatic insufficiency ? remote suspicion of possible UC. Since admission however pt doesn't appear to be having any BMs and GI signed off. Reconsulted for diarrhea on 06/29/17. Pt with 10 BMs, no black/ bloody stools. Last admission, he responded well to a short course of budesonide. - Re-check stool cx, Cdiff if loose stools - Ok to DC Octreotide - Continue pancreas enzymes - Questran 4g BID. - Lomotil 2g TID, - Clonidine 0.05mg BID - Amitriptyline 25mg QHS - Trial Entocort 9 mg once daily x 1 week, Entocort 6 mg daily x 2 weeks or until evaluated by his primary it auditor - Monitor electrolytes and correction per primary team. GI to sign off. No contraindication to discharge.
[2017-07-01] MEDS: MAGNESIUM SULFATE 1GM / D5W 1 GM in PREMIXED IN D5W 100 ML IV SCH ×2 (11:11→12:36)
[2017-07-01] MEDS: POT PHOSPHATE MONOBASIC W/ SOD TAB PO SCH ×3 (12:36→20:58)
--- NOTE | 2017-07-01 12:40 | Progress Note ---
Medicine Progress Note Date & Time of Visit: Jul 01, 2017 at 12:39. (Cecilia Vogt, P.A.-C.) Subjective Pt seen and examined. States that he is feeling about the same as yesterday. Endorses 8 episodes of diarrhea since dinner last evening, which is less than his baseline of 20 episodes of diarrhea a day Appetite is improving and abd pain is back to baseline of chronic LLQ discomfort.. Denies lightheadedness, CP, SOB, nausea/vomiting. (Cecilia Vogt, P.A.-C.) Objective Last 8 Hrs Date Time Temp Pulse Resp B/P (MAP) Pulse Ox O2 Delivery O2 Flow Rate FiO2 07/01/17 08:00 Room Air 07/01/17 07:07 36.4 67 18 157/77 (103) 98 Room Air 64 126/84 (98) 64 128/77 (94) Physical Exam: General Appearance: WD/WN, no apparent distress Head: normocephalic, atraumatic Eyes: normal inspection, PERRL ENT: hearing grossly normal Neck: supple, no JVD, no adenopathy Respiratory/Chest: lungs clear to auscultation. No wheezes, rales or rhonci. No respiratory distress or accessory muscle use Cardiovascular: regular rate, rhythm, no murmur, normal peripheral pulses Abdomen/GI: normal bowel sounds, soft, TTP in LLQ>RLQ. Otherwise non-tender Extremities/Musculoskelatal: normal inspection, no calf tenderness, normal capillary refill, no pedal edema Neurologic/Psych: alert, normal mood/affect, oriented x 3 Skin: normal color, warm/dry Laboratory Results: Last 24 Hours Test 06/30/17 16:13 06/30/17 19:50 07/01/17 07:42 07/01/17 08:13 Bedside Glucose 248 mg/dl 168 mg/dl 81 mg/dl White Blood Count 11.53 K/uL Red Blood Count 4.22 M/uL Hemoglobin 12.4 g/dL Hematocrit 37.5 % Mean Corpuscular Volume 88.9 fL Mean Corpuscular Hemoglobin 29.4 pg Mean Corpuscular Hemoglobin Concent 33.1 g/dl RDW Standard Deviation 49.6 fL RDW Coefficient of Variation 15.5 % Platelet Count 193 K/uL Mean Platelet Volume 10.8 fL Sodium Level 143 mmol/L Potassium Level 3.5 mmol/L Chloride Level 111 mmol/L Carbon Dioxide Level 26 mmol/L Anion Gap 6.0 mmol/L Blood Urea Nitrogen 8 mg/dl Creatinine 1.00 mg/dl Est Creatinine Clear Calc Drug Dose 76.6 ml/min Estimated GFR () 93.1 Estimated GFR (Non- 80.3 BUN/Creatinine Ratio 7.9 Random Glucose 81 mg/dl Calcium Level 8.6 mg/dl Phosphorus Level 2.2 mg/dl Magnesium Level 1.6 mg/dl Test 07/01/17 11:28 Bedside Glucose 174 mg/dl Other Studies: Ordered a re-check of c diff toxin (Cecilia Vogt, P.A.-C.) Assessment & Plan Chronic diarrhea: improving -Hx of chronic collagenous diarrhea and microscopic colitis -Had recurrent admission for diarrhea at [facility] 05/22 - 05/31 -patient's Questran and Lomotil were increased and was started on amitriptyline, budesonide, clonidine, and Pepto Bismol -continued on Vanco taper from prior C. Diff infection -once home, patient self stopped the new medications as well as the Vanco -CT abd/pelvis showed no evidence of bowel obstruction, no evidence of free air. nonspecific infiltration of the left mid abdominal small bowel mesentery. -Continue IVF, pain management -Continues to have watery diarrhea but amount is less than baseline of 20 episodes a day. -Continue trial of Entocort 9mg daily, pancreas enzymes, Questran 4g BID, Lomotil 2g TID, Clonidine 0.05mg BID and Amitriptyline 25mg qHS -Ordered test for C diff toxin -Spoke with GI; okay for patient to return home on new regimen since diarrhea is much improved from baseline. Leukocytosis: -Has been fluctuating between 8-12 over the past few days. Wbc 11.53 up from 8.4 since yesterday -Afebrile, no URI symptoms, cough, SOB, dysuria -Ordered test for C diff toxin CRISTIAN: resolved -Prerenal due to GI loss from persistent diarrhea -Continue IVF -Continue follow up BMP Electrolyte imbalances: -Continues to have fluctuation with phos and mg -Related to GI loss with diarrhea -Replaced phos and mg. Will check labs this afternoon. Generalized Weakness: -Due to electrolytes abnormality and diarrhea -PT Hypercalcemia: resolved -Ca level now 8.7 Adrenal Insufficiency: -BP currently stable -Continue home dose PO hydrocortisone -Low threshold for stress dose steroids -Pt was advised to see endocrinology upon discharge -Planning to see Dr Hammer CAD: -Denies any chest pain -Continue nitrate, ASA, and statin -Not on BB due to bradycardia episodes COPD: -Asymptomatic -Counseling on smoking cessation -Continue home inhalers, PRN nebs HTN: -BP controlled -Continue isosorbide -Lisinopril held due to CRISTIAN DM -Hba1c 7.5 on 04/2017 -Continue insulin -Pharmacy on board for glycemic control DVT Ppx: SCDs Code status: FULL Dispo: Plan to return home once medically stable Consultants: Gastro Current Inpatient Medications: Current Inpatient Medications Medications (Trade) Dose Ordered Sig/Tisha Route Start Time Stop Time Status Last Admin Dose Admin Acetaminophen (Tylenol Tab) 650 mg Q4H PRN PO 06/25/17 17:45 07/25/17 17:44 Ondansetron HCl (Zofran Inj) 4 mg Q6H PRN IV 06/25/17 17:45 07/25/17 17:44 06/29/17 21:58 4 MG Sodium Chloride 1,000 ml @ 75 mls/hr [id number] IV 06/25/17 18:00 07/25/17 17:59 07/01/17 08:43 75 MLS/HR Insulin Aspart (novoLOG ASPART) SLIDING SCALE If C... ACHS SC 06/25/17 21:00 07/25/17 20:59 07/01/17 08:47 1 UNITS Glucose (Glucose 40% Gel) 15-30 GRAMS 15 GRAMS... UD PRN PO 06/25/17 18:30 07/25/17 18:29 Glucose (Glucose Chew Tab) 4-8 Tablets 4 Tabl... UD PRN PO 06/25/17 18:30 07/25/17 18:29 Dextrose (Dextrose 50% 50ML Syringe) 25-50ML OF 50% DW IV FOR... UD PRN IV 06/25/17 18:30 07/25/17 18:29 Glucagon (Glucagon Inj) 1 mg UD PRN SQ 06/25/17 18:30 07/25/17 18:29 Miscellaneous Information (Consult Glycemic Management Pharmacy) 1 ea UD PRN N/A 06/25/17 18:41 07/25/17 18:40 Lorazepam (Ativan Inj) 0.5 mg Q8H PRN IV 06/25/17 18:45 07/25/17 18:44 06/28/17 14:21 0.5 MG Morphine Sulfate (MoRPHine SULFATE INJ) 4 mg Q4H PRN IV 06/25/17 18:45 07/09/17 18:44 07/01/17 04:59 4 MG Aspirin (Aspirin Chew) 81 mg QAM PO 06/26/17 09:00 07/26/17 08:59 07/01/17 08:38 81 MG Atorvastatin Calcium (Lipitor Tab) 80 mg QAM PO 06/26/17 09:00 07/26/17 08:59 07/01/17 08:37 80 MG Fluoxetine HCl (Prozac Cap) 20 mg QAM PO 06/26/17 09:00 07/26/17 08:59 07/01/17 08:38 20 MG Hydrocortisone (Cortef Tab) 10 mg DAILYBD PO 06/26/17 16:00 07/26/17 15:59 06/30/17 15:58 10 MG Hydrocortisone (Cortef Tab) 20 mg QDB PO 06/26/17 07:30 07/26/17 07:59 07/01/17 08:38 20 MG Isosorbide Mononitrate (Imdur Ext Rel Tab) 60 mg QAM PO 06/26/17 09:00 07/26/17 08:59 07/01/17 08:36 60 MG Magnesium Oxide (Mag-Ox Tab) 400 mg BID PO 06/25/17 21:00 07/25/17 20:59 07/01/17 08:38 400 MG Ranitidine HCl (zANTac TAB) 150 mg BID PO 06/25/17 21:00 07/25/17 20:59 07/01/17 08:36 150 MG Tiotropium [place] (Spiriva Handihaler Inhaler) 1 puff DAILY INH 06/26/17 09:00 07/26/17 08:59 07/01/17 08:38 1 PUFF Miscellaneous Information (Order Awaiting Action) 1 ea QS N/A 06/26/17 00:00 07/26/17 00:00 Amylase/Lipase/ Protease (Pancreaze (Lipase 10,500U) Cap) 1 cap BID PRN PO 06/25/17 19:00 07/25/17 18:59 06/26/17 14:28 1 CAP Amylase/Lipase/ Protease (Pancreaze (Lipase 10,500U) Cap) 2 cap TIDM PO 06/26/17 07:30 07/26/17 07:59 07/01/17 12:36 2 CAP Albuterol/ Ipratropium (Duoneb) 3 ml Q4R PRN INH 06/25/17 18:45 07/25/17 18:44 Diphenoxylate HCl/ Atropine (Lomotil Tab) 2 tab TID PO 06/26/17 14:00 07/26/17 13:59 07/01/17 08:37 2 TAB Amitriptyline HCl (Elavil Tab) 25 mg HS PO 06/26/17 21:00 07/26/17 20:59 06/30/17 21:07 25 MG Clonidine HCl (Catapres Tab) 0.05 mg BID PO 06/26/17 20:00 07/26/17 20:59 07/01/17 08:36 0.05 MG Lorazepam 0.5 mg/ Syringe 1 ml @ 1 mls/min Q8 PRN IV 06/26/17 16:45 07/26/17 16:44 06/30/17 19:18 1 MLS/MIN Cholestyramine Resin (Questran Powder Light) 4 gm QID PO 06/27/17 20:00 07/25/17 21:59 07/01/17 12:37 4 GM Budesonide (Entocort EC Cap) 9 mg QAM PO 06/30/17 08:00 07/30/17 07:59 07/01/17 08:38 9 MG Insulin Glargine (Lantus Solostar Pen) SEE PROTOCOL HS SC 06/30/17 21:00 07/30/17 20:59 Potassium/ Phosphorus/Sodium (Phospha 250 Neutral 155-852-130 Mg) 2 tab QID PO 07/01/17 12:00 07/31/17 11:59 07/01/17 12:36 2 TAB (Cecilia Vogt ., P.A.-C.) ATTENDING ADDENDUM care coordinated with DONTE Vogt please refer to her notes for full details, I agree with her notes patient seen and examined, records reviewed by myself as well on exam, patient seen resting in bed, comfortable states diarrhea is slowing down as well as abdominal pain no other symptoms VS noted and reviewed oriented x 3, not in distress, speaks in sentences with no effort nor accessory muscle use normal rate, regular rhythm, no murmurs clear breath sounds bilaterally non distended, soft, nontender no bipedal edema, erythema, warmth no neuro deficits WBC 11.5 Hg 12.4 K 3.1 ASSESSMENT/PLAN> RECURRENT DIARRHEA - improving with Entecort monitor HYPO K AND PH - will replete other diagnoses and plan of care as per DONTE Vogt's notes Ajay Rider MD (Ajay Rider MD)
[2017-07-01 15:28] VITALS: BP_SYST 132; BP_SYST 136; BP_SYST 139; BP_DIAS 72; BP_DIAS 76; BP_DIAS 81; PULSE 64; PULSE 79; TEMP 36.6; O2SAT 99
[2017-07-01 16:02] LABS: POTASSIUM 3.1 mmol/L (3.5-5.1)
[2017-07-01 16:03] LABS: MAGNESIUM 2.3 mg/dl (1.8-2.4)
[2017-07-01] MEDS ORDERED: POTASSIUM CHLORIDE 20 MEQ TABCR PO STA (17:55)
[2017-07-01] MEDS: LORAZEPAM INJ 0.5 MG in SYRINGE 0.75 ML IV PRN (20:54)
[2017-07-01] MEDS: AMITRIPTYLINE HCL 25 MG TAB PO SCH (20:59)
[2017-07-01 23:56] VITALS: BP_SYST 131; BP_SYST 138; BP_SYST 145; BP_DIAS 79; BP_DIAS 80; BP_DIAS 86; PULSE 62; PULSE 71; PULSE 79; TEMP 36.9; O2SAT 99
[2017-07-02] MEDS: MoRPHine SULFATE 4 MG/ML 1 ML CARP\\VIAL IV PRN ×2 (01:12→05:17)
[2017-07-02 06:04] LABS: BASO % 0.1 %; BASO ABS # 0.01 K/uL (0-0.2); COMPLETE YES; EOS % 0.8 %; HEMATOCRIT 35.9 % (42-52); IG% 0.3 %; LYMPH % 19.6 %; LYMPH ABS # 2.32 K/uL (1.2-3.4); MEAN CELL VOLUME 88.2 fL (80-100); MEAN CORPUSCULAR HEMOGLOBIN 29.2 pg (25-34); MEAN CORPUSCULAR HGB CONC 33.1 g/dl (32-36); MONO % 9.3 %; NEUT % 69.9 %; PLATELET COUNT 171 K/uL (130-400); RED BLOOD COUNT 4.07 M/uL (4.7-6.1); WHITE BLOOD COUNT 11.85 K/uL (4.8-10.8)
[2017-07-02 06:44] LABS: BUN/CREATININE RATIO 10.2 (10-20); CALCIUM 8.2 mg/dl (8.5-10.1); CREATININE 0.93 mg/dl (0.60-1.40); MAGNESIUM 1.8 mg/dl (1.8-2.4); POTASSIUM 3.2 mmol/L (3.5-5.1)
[2017-07-02 07:30] VITALS: BP_SYST 155; BP_SYST 156; BP_SYST 173; BP_DIAS 84; BP_DIAS 91; PULSE 64; PULSE 72; PULSE 73; TEMP 36.6; O2SAT 99
[2017-07-02] MEDS: TIOTROPIUM BROMIDE 5 PUFF/90 MCG INH INH SCH (07:58)
[2017-07-02] MEDS: RANITIDINE HCL 150 MG TAB PO SCH (07:59)
[2017-07-02] MEDS: ASPIRIN 81 MG CHEW PO SCH (07:59)
[2017-07-02] MEDS: ISOSORBIDE MONONITRATE 60 MG TABCR PO SCH (07:59)
[2017-07-02] MEDS: POT PHOSPHATE MONOBASIC W/ SOD TAB PO SCH ×2 (07:59→11:24)
[2017-07-02] MEDS: HYDROCORTISONE 10 MG TAB PO SCH (07:59)
[2017-07-02 08:00] VITALS: O2SAT 99
[2017-07-02] MEDS: CLONIDINE HCL 0.1 MG TAB PO SCH (08:00)
[2017-07-02] MEDS: ATORVASTATIN 40 MG TAB PO SCH (08:00)
[2017-07-02] MEDS: PANCREAZE (LIPASE 10,500U) CAP PO SCH ×2 (08:00→11:24)
[2017-07-02] MEDS: BUDESONIDE EC 3 MG CAP PO SCH (08:00)
[2017-07-02] MEDS: FLUOXETINE HCL 20 MG CAP PO SCH (08:01)
[2017-07-02] MEDS: DIPHENOXYLATE/ATROPINE 2.5/0.025MG TAB PO SCH ×2 (08:01→13:09)
[2017-07-02] MEDS: CHOLESTYRAMINE LIGHT 4 GM PKT PO SCH ×2 (08:01→11:24)
[2017-07-02] MEDS: MAGNESIUM OXIDE 400 MG TAB PO SCH (09:00)
[2017-07-02] MEDS ORDERED: POTASSIUM CHLORIDE 10 MEQ TABCR PO ONE (09:00)
[2017-07-02] MEDS: INSULIN ASPART 100 UNITS/ML 3 ML PEN SC SCH ×2 (09:07→13:16)
--- NOTE | 2017-07-02 10:52 | Pharmacy Progress Note ---
Glycemic Control Progress Note Date of Service Jul 02, 2017. Scope Glycemic Pharmacist consulted for glycemic control to write orders per [facility] inpatient glycemic control protocol. Objective Accuchecks BSG (last 24hrs): Test 07/01/17 11:28 07/01/17 16:09 07/01/17 20:00 07/02/17 05:44 Bedside Glucose 174 mg/dl (70-99) 103 mg/dl (70-99) 172 mg/dl (70-99) Random Glucose 93 mg/dl (70-99) Test 07/02/17 07:40 Bedside Glucose 83 mg/dl (70-99) Recent Pertinent Medications The patient is currently receiving: * Basal insulin: No basal * Correctional Insulin: Novolog Correction per scale ACHS Goal Range: Low 120 mg/dL - High 140 mg/dL Correction Factor: 35 mg/dL/unit * Prandial insulin: Per carb ratio of 1 unit per 20 grams CHO consumed Outpatient Anti-Diabetic Meds Lantus 10-20 units/day Novolog sliding scale (max 40 units/day) Assessment & Plan ASSESSMENT: * See progress note from 06/25/17 for more background info, in short: Mr Urbina is a62 y/o M admitted with recurrent diarrhea after stopping his medications. He is well known to the glycemic service. While hospitalized, the patient typically requires insulin at first and then his requirements decrease. * Pt receiving SQ basal bolus insulin regimen for hyperglycemia secondary to baseline DM (outpatient regimen on hold), and steroids (patient currently on his home dose) * Patient is currently receiving an average of 30-40 units of insulin per day at beginning of hospitalization now requirements decreased to 10-15 units/day ( yesterday however, he only received 10 units) * 0 units of basal insulin yesterday * 10 units of prandial/correctional insulin * BSGs ranging 81-174 mg/dl over the past 24hrs * Changes needed to insulin regimen: * AM Fasting BSG = 83 mg/dl. This is in slightly below goal range for patient based on inpatient targets and co-morbidities. It appears that the patient's overnight basal production is adequate. However, during the day it is difficult to control his blood sugars. Lantus dose shifted to lunchtime to accommodate this trend. * Post-prandial BSGs appear to increase during the day; however, large doses of Novolog are detrimental. Shifted Lantus to accomodate this. Also put a maximum of Novolog 4 units in the label comments so that patient does not receive too much insulin. * Total daily dose = 30 units. (later in hospital stay closer to 10-15 units/ day) PLAN FOR INPATIENT GLYCEMIC CONTROL: * Start Lantus 5 units with lunch * Continue correction factor of 35 mg/dl/unit * Continue carb ratio of 1 unit per 20 grams CHO consumed * Continuing goal range of Low 120 mg/dL - High 140 mg/dL RECOMMENDATIONS FOR DISCHARGE: * Due to patient's co-morbidities, A1C is likely adequate control. May continue home regimen. * Please note that the plan above was derived based on current level of insulin resistance and hospital stress. These recommendations are appropriate for inpatient admission only. Plan of care upon discharge will need to be reassessed to avoid potential outpatient hypo/hyperglycemia. Thank you.
[2017-07-02] MEDS: SODIUM CHLORIDE 0.9% 1000ML 1,000 ML IV SCH (11:24)
--- NOTE | 2017-07-02 11:31 | Progress Note ---
Medicine Progress Note Date & Time of Visit: Jul 02, 2017 at 11:18. (Cecilia Vogt, P.A.-C.) Subjective Pt seen and examined. States that he is feeling better than yesterday. Endorses 2 episodes of diarrhea since dinner last evening, which is much improved from baseline of 20 episodes of diarrhea a day. Also had a formed BM this morning. Appetite is improving and abd pain is back to baseline of chronic LLQ discomfort.. Denies lightheadedness, CP, SOB, nausea/vomiting. Ready to go home. (Cecilia Vogt, P.A.-C.) Objective Last 8 Hrs Date Time Temp Pulse Resp B/P (MAP) Pulse Ox O2 Delivery O2 Flow Rate FiO2 07/02/17 08:00 99 Room Air 07/02/17 07:30 36.6 64 20 173/91 (118) 99 72 155/84 (107) 73 156/91 (112) Physical Exam: General Appearance: WD/WN, no apparent distress Head: normocephalic, atraumatic Eyes: normal inspection, PERRL ENT: hearing grossly normal Neck: supple, no JVD, no adenopathy Respiratory/Chest: lungs clear to auscultation. No wheezes, rales or rhonci. No respiratory distress or accessory muscle use Cardiovascular: regular rate, rhythm, no murmur, normal peripheral pulses Abdomen/GI: normal bowel sounds, soft, TTP in LLQ>RLQ. Otherwise non-tender Extremities/Musculoskelatal: normal inspection, no calf tenderness, normal capillary refill, no pedal edema Neurologic/Psych: alert, normal mood/affect, oriented x 3 Skin: normal color, warm/dry Laboratory Results: Last 24 Hours Test 07/01/17 11:28 07/01/17 15:31 07/01/17 16:09 07/01/17 20:00 Bedside Glucose 174 mg/dl 103 mg/dl 172 mg/dl Potassium Level 3.1 mmol/L Magnesium Level 2.3 mg/dl Test 07/02/17 05:44 07/02/17 07:40 White Blood Count 11.85 K/uL Red Blood Count 4.07 M/uL Hemoglobin 11.9 g/dL Hematocrit 35.9 % Mean Corpuscular Volume 88.2 fL Mean Corpuscular Hemoglobin 29.2 pg Mean Corpuscular Hemoglobin Concent 33.1 g/dl Platelet Count 171 K/uL Mean Platelet Volume 10.0 fL Neutrophils (%) (Auto) 69.9 % Lymphocytes (%) (Auto) 19.6 % Monocytes (%) (Auto) 9.3 % Eosinophils (%) (Auto) 0.8 % Basophils (%) (Auto) 0.1 % Neutrophils # (Auto) 8.29 K/uL Lymphocytes # (Auto) 2.32 K/uL Monocytes # (Auto) 1.10 K/uL Eosinophils # (Auto) 0.10 K/uL Basophils # (Auto) 0.01 K/uL RDW Standard Deviation 49.5 fL RDW Coefficient of Variation 15.3 % Immature Granulocyte % (Auto) 0.3 % Immature Granulocyte # (Auto) 0.03 K/uL Sodium Level 142 mmol/L Potassium Level 3.2 mmol/L Chloride Level 110 mmol/L Carbon Dioxide Level 25 mmol/L Anion Gap 7.0 mmol/L Blood Urea Nitrogen 10 mg/dl Creatinine 0.93 mg/dl Est Creatinine Clear Calc Drug Dose 82.4 ml/min Estimated GFR () 101.6 Estimated GFR (Non- 87.7 BUN/Creatinine Ratio 10.2 Random Glucose 93 mg/dl Calcium Level 8.2 mg/dl Magnesium Level 1.8 mg/dl Bedside Glucose 83 mg/dl Date/Time Source Procedure Growth Status 07/01/17 13:45 Stool C.difficile Toxin B Gene (PCR) - Final No C. difficile toxin B gene detected Complete (Cecilia Vogt, P.A.-C.) Assessment & Plan Chronic diarrhea: improving -Hx of chronic collagenous diarrhea and microscopic colitis -Had recurrent admission for diarrhea at [facility] 05/22 - 05/31 -patient's Questran and Lomotil were increased and was started on amitriptyline, budesonide, clonidine, and Pepto Bismol -continued on Vanco taper from prior C. Diff infection -once home, patient self stopped the new medications as well as the Vanco -CT abd/pelvis showed no evidence of bowel obstruction, no evidence of free air. nonspecific infiltration of the left mid abdominal small bowel mesentery. -Continue IVF, pain management -C diff negative -Decreased frequency of watery diarrhea episodes. Baseline of 20 episodes a day. -Continue pancreas enzymes, Questran 4g BID, Lomotil 2g TID, Clonidine 0.05mg BID and Amitriptyline 25mg qHS -Continue trial of Entocort 9mg daily x 1 week, then Entocort 6mg x 2 weeks or till follow-up with out-patient GI -Spoke with GI; patient cleared to go home Leukocytosis: stable -Has been fluctuating between 8-12 over the past few days. Stable at 11.85 -Afebrile, no URI symptoms, cough, SOB, dysuria -Negative test for C diff toxin CRISTIAN: resolved -Prerenal due to GI loss from persistent diarrhea -Continue IVF -Continue follow up BMP Electrolyte imbalances: -Continues to have fluctuation with phos,mg and k -Related to GI loss with diarrhea -Replaced K. Mg is wnl. Generalized Weakness: -Due to electrolytes abnormality and diarrhea -PT Hypercalcemia: resolved -Ca level now 8.7 Adrenal Insufficiency: -BP currently stable -Continue home dose PO hydrocortisone -Low threshold for stress dose steroids -Pt was advised to see endocrinology upon discharge -Planning to see Dr Hammer CAD: -Denies any chest pain -Continue nitrate, ASA, and statin -Not on BB due to bradycardia episodes COPD: -Asymptomatic -Counseling on smoking cessation -Continue home inhalers, PRN nebs HTN: -BP controlled -Continue isosorbide -Lisinopril held due to CRISTIAN DM -Hba1c 7.5 on 04/2017 -Continue insulin -Pharmacy on board for glycemic control DVT Ppx: SCDs Code status: FULL Dispo: Plan to return home once medically stable Consultants: Gastro Current Inpatient Medications: Current Inpatient Medications Medications (Trade) Dose Ordered Sig/Tisha Route Start Time Stop Time Status Last Admin Dose Admin Acetaminophen (Tylenol Tab) 650 mg Q4H PRN PO 06/25/17 17:45 07/25/17 17:44 Ondansetron HCl (Zofran Inj) 4 mg Q6H PRN IV 06/25/17 17:45 07/25/17 17:44 06/29/17 21:58 4 MG Sodium Chloride 1,000 ml @ 75 mls/hr [id number] IV 06/25/17 18:00 07/25/17 17:59 07/01/17 22:23 75 MLS/HR Insulin Aspart (novoLOG ASPART) SLIDING SCALE If C... ACHS SC 06/25/17 21:00 07/25/17 20:59 07/02/17 09:07 1 UNITS Glucose (Glucose 40% Gel) 15-30 GRAMS 15 GRAMS... UD PRN PO 06/25/17 18:30 07/25/17 18:29 Glucose (Glucose Chew Tab) 4-8 Tablets 4 Tabl... UD PRN PO 06/25/17 18:30 07/25/17 18:29 Dextrose (Dextrose 50% 50ML Syringe) 25-50ML OF 50% DW IV FOR... UD PRN IV 06/25/17 18:30 07/25/17 18:29 Glucagon (Glucagon Inj) 1 mg UD PRN SQ 06/25/17 18:30 07/25/17 18:29 Miscellaneous Information (Consult Glycemic Management Pharmacy) 1 ea UD PRN N/A 06/25/17 18:41 07/25/17 18:40 Lorazepam (Ativan Inj) 0.5 mg Q8H PRN IV 06/25/17 18:45 07/25/17 18:44 06/28/17 14:21 0.5 MG Morphine Sulfate (MoRPHine SULFATE INJ) 4 mg Q4H PRN IV 06/25/17 18:45 07/09/17 18:44 07/02/17 05:17 4 MG Aspirin (Aspirin Chew) 81 mg QAM PO 06/26/17 09:00 07/26/17 08:59 07/02/17 07:59 81 MG Atorvastatin Calcium (Lipitor Tab) 80 mg QAM PO 06/26/17 09:00 07/26/17 08:59 07/02/17 08:00 80 MG Fluoxetine HCl (Prozac Cap) 20 mg QAM PO 06/26/17 09:00 07/26/17 08:59 07/02/17 08:01 20 MG Hydrocortisone (Cortef Tab) 10 mg DAILYBD PO 06/26/17 16:00 07/26/17 15:59 07/01/17 16:05 10 MG Hydrocortisone (Cortef Tab) 20 mg QDB PO 06/26/17 07:30 07/26/17 07:59 07/02/17 07:59 20 MG Isosorbide Mononitrate (Imdur Ext Rel Tab) 60 mg QAM PO 06/26/17 09:00 9/3/17 08:59 07/02/17 07:59 60 MG Magnesium Oxide (Mag-Ox Tab) 400 mg BID PO 06/25/17 21:00 07/25/17 20:59 07/02/17 09:00 400 MG Ranitidine HCl (zANTac TAB) 150 mg BID PO 06/25/17 21:00 07/25/17 20:59 07/02/17 07:59 150 MG Tiotropium [place] (Spiriva Handihaler Inhaler) 1 puff DAILY INH 06/26/17 09:00 07/26/17 08:59 07/02/17 07:58 1 PUFF Miscellaneous Information (Order Awaiting Action) 1 ea QS N/A 06/26/17 00:00 07/26/17 00:00 Amylase/Lipase/ Protease (Pancreaze (Lipase 10,500U) Cap) 1 cap BID PRN PO 06/25/17 19:00 07/25/17 18:59 06/26/17 14:28 1 CAP Amylase/Lipase/ Protease (Pancreaze (Lipase 10,500U) Cap) 2 cap TIDM PO 06/26/17 07:30 07/26/17 07:59 07/02/17 08:00 2 CAP Albuterol/ Ipratropium (Duoneb) 3 ml Q4R PRN INH 06/25/17 18:45 07/25/17 18:44 Diphenoxylate HCl/ Atropine (Lomotil Tab) 2 tab TID PO 06/26/17 14:00 07/26/17 13:59 07/02/17 08:01 2 TAB Amitriptyline HCl (Elavil Tab) 25 mg HS PO 06/26/17 21:00 07/26/17 20:59 07/01/17 20:59 25 MG Clonidine HCl (Catapres Tab) 0.05 mg BID PO 06/26/17 20:00 07/26/17 20:59 07/02/17 08:00 0.05 MG Lorazepam 0.5 mg/ Syringe 1 ml @ 1 mls/min Q8 PRN IV 06/26/17 16:45 07/26/17 16:44 07/01/17 20:54 1 MLS/MIN Cholestyramine Resin (Questran Powder Light) 4 gm QID PO 06/27/17 20:00 07/25/17 21:59 07/02/17 08:01 4 GM Budesonide (Entocort EC Cap) 9 mg QAM PO 06/30/17 08:00 07/30/17 07:59 07/02/17 08:00 9 MG Potassium/ Phosphorus/Sodium (Phospha 250 Neutral 155-852-130 Mg) 2 tab QID PO 07/01/17 12:00 07/31/17 11:59 07/02/17 07:59 2 TAB Insulin Glargine (Lantus Solostar Pen) 5 units QDL SC 07/02/17 12:00 08/01/17 11:59 (Cecilia Vogt ., P.A.-C.) ATTENDING ADDENDUM care coordinated with DONTE Vogt please refer to her notes for full details, I agree with her notes patient seen and examined, records reviewed by myself as well on exam, patient seen resting in bed, comfortable states diarrhea continues to slow down, feels much better, in good spirits states he is ready and would like to be discharge no other symptoms VS noted and reviewed oriented x 3, not in distress, speaks in sentences with no effort nor accessory muscle use normal rate, regular rhythm, no murmurs clear breath sounds bilaterally non distended, soft, nontender no bipedal edema, erythema, warmth no neuro deficits K 3.2 Ph 3.2 ASSESSMENT/PLAN> RECURRENT DIARRHEA - diarrhea episodes now less frequent and abdominal pain has improved continue Enterocort and other medication changes as suggested by GI HYPO K - K supplement increased other diagnoses and plan of care as per DONTE Vogt's notes Ajay Rider MD (Ajay Rider MD)
[2017-07-02] MEDS ORDERED: INSULIN GLARGINE SOLOSTAR 100 UNITS/ML 3 ML PEN SC SCH (12:00)
[2017-07-02] MEDS ORDERED: CHOL4POW11 PO (12:02)
[2017-07-02] MEDS ORDERED: POTA1POW PO (12:02)
[2017-07-02] MEDS ORDERED: ENT3 PO (12:02)
[2017-07-02] MEDS ORDERED: PANC6000 PO (12:02)
[2017-07-02] MEDS ORDERED: PANC24002 PO (12:02)
[2017-07-02] MEDS ORDERED: AMT25 PO (12:02)
[2017-07-02] MEDS ORDERED: CTP1 PO (12:02)
[2017-07-02] MEDS ORDERED: LMTHP PO (12:02)
--- NOTE | 2017-07-02 12:30 | Discharge Instructions ---
Discharge Instructions Date of Service Jul 02, 2017. Admission Reason for Admission: Electrolyte Abnormality Discharge Discharge Diagnosis / Problem: RECURRENT DIARRHEA Discharge Goals Goal(s): Decrease discomfort, Improve function, Improve nutritional status Activity Recommendations Activity Limitations: as noted below (INCREASE ACTIVITY GRADUALLY TOLERATED) Lifting Limitations: until after follow-up appointment Exercise/Sports Limitations: until after follow-up appointment . Instructions / Follow-Up Instructions / Follow-Up You were admitted for electrolyte abnormalities due to chronic, worsening diarrhea. You were started on new medications to help with diarrhea management. Your electrolytes were replaced while in the hospital. Please continue to eat a healthy diet of lean protein, whole grains, vegetables and fruits. Your follow up-appointment with Dr. Lin is July 07 at 2:45pm. Follow up with [facility] Dr. Mcghee on July 08, 2017 at 11:00am. Please follow-up with out-patient GI and endocrinology. Dr. Lin can help coordinate this. If you start to experience pain with bowel movements, worsening diarrhea, weakness or dizziness, please call you PCP or return to the ER immediately. You have been provided with the following prescriptions to fill at your preferred pharmacy. Please take them according to the instructions. - Pancreas enzymes - Questran 4g BID. - Lomotil 2g TID, - Clonidine 0.05mg BID - Amitriptyline 25mg QHS - Trial Entocort 9 mg once daily x 1 week, Entocort 6 mg daily x 2 weeks or until evaluated by his primary television presenter We increased your daily dose of Klor-Con from 20m Eq to 40mEq daily. Current Hospital Diet Patient's current hospital diet: AHA Diet (Heart Healthy), Diabetes Type 2 Diet , Low Potassium Diet (2g K), Low Lactose Diet Discharge Diet Recommended Diet: AHA Diet (Heart Healthy), Diabetes Type 2 Diet, Low Potassium Diet (2g K), Low Lactose Diet Pending Studies Studies pending at discharge: no Laboratory Results Hemoglobin A1c Test 05/24/17 06:30 Range/Units Estimated Average Glucose 171 mg/dl Hemoglobin A1c 7.6 H 4.5-5.6 % Medical Emergencies . Who to Call and When: Medical Emergencies: If at any time you feel your situation is an emergency, please call 911 immediately. . Non-Emergent Contact Non-Emergency issues call your: Primary Care Provider Call Non-Emergent contact if: you have a fever, your pain is not controlled, your pain is worsening, you have any medication questions . Past History Medical & Surgical History: (1) Adrenal insufficiency (2) Avelina's syndrome (3) DM type 2 (diabetes mellitus, type 2) (4) HTN (hypertension) (5) Microscopic colitis (6) COPD (chronic obstructive pulmonary disease) (7) HLD (hyperlipidemia) (8) Depression with anxiety (9) CAD (coronary artery disease) . "Provider Documentation" section prepared by Cecilia Vogt. . VTE Core Measure Inpt VTE Proph given/why not?: SCD's [place] Drug Monitoring Program Search Results: no issues identified
--- NOTE | 2017-07-02 12:48 | Discharge Summary ---
Discharge Summary Date of Service Jul 02, 2017. Discharge Summary Admission Date: Jun 25, 2017 at 17:44 Discharge Date: Jul 02, 2017 Discharge Disposition: Home Principal Diagnosis: Electrolyte abnormalities secondary to chronic diarrhea Secondary Diagnoses/Problems: Leukocytosis, CRISTIAN, Generalized Weakness, Hypercalcemia, Adrenal Insufficiency, CAD, COPD, HTN, DM II Procedures: CT SCAN OF THE ABDOMEN AND PELVIS WITHOUT CONTRAST CLINICAL HISTORY: Generalized abdominal pain COMPARISON STUDY: 05/21/2017 TECHNIQUE: CT scan of the abdomen and pelvis was performed from the lung bases to the proximal femurs. Images are reviewed in the axial, sagittal, and coronal planes. IV contrast was not administered for this examination. A dose lowering technique was utilized adhering to the principles of ALARA. CT DOSE: 302.87 mGy.cm FINDINGS: Lower chest: The heart is normal in size and configuration, without pericardial effusion. The lung bases and pleural spaces are clear. Liver: The unenhanced liver is normal in size, contour, and attenuation. There is no intrahepatic biliary ductal dilatation. Gallbladder: Minimally distended. No calculi are visualized. Spleen: Normal in size and attenuation. Pancreas: Unremarkable. Adrenal glands: Unremarkable. Kidneys: No renal, ureteral, or bladder calculi are visualized. There is a 17 mm right renal hypodensity likely representing a cyst. Bowel: Evaluation the bowel is limited due to the lack of intravenous and oral contrast. There are no transition zones indicate bowel obstruction. The appendix appears normal. There is colonic diverticulosis. There is no acute diverticulitis. There is focal infiltration of the left mid abdominal small bowel mesentery. Peritoneum: There is a small amount of free pelvic fluid. No free intraperitoneal air is visualized. There is no evidence of pneumatosis. Vasculature: The abdominal aorta is normal in course and caliber. Adenopathy: None. Pelvic viscera: The bladder, and pelvic viscera are unremarkable. Skeletal structures: No destructive osseous lesions are seen. IMPRESSION: 1. No renal, ureteral, or bladder calculi identified 2. No evidence of bowel obstruction. No evidence of free air 3. Nonspecific infiltration of the left mid abdominal small bowel mesentery. This could be on an ischemic or infectious/inflammatory basis. Close clinical follow-up is recommended. 2. ABDOMEN 2VIEW W/PA CHEST RTN CLINICAL HISTORY: ABDOMINAL PAIN/GI pain COMPARISON STUDY: 05/21/2017 FINDINGS: The soft tissues, psoas shadows, renal outlines and intestinal gas pattern appear normal. There is no evidence for bowel obstruction. There is no evidence for free intraperitoneal air. No abnormal abdominal calcifications are seen. A frontal view of the chest was performed and is unremarkable. IMPRESSION: Normal study. Consultations: Gastro Pending Studies/Follow-Up: Recheck CBC, BMP, Mg and Phos at hospital follow-up appt. Medication Reconciliation New Medications: Amitriptyline HCl (Amitriptyline HCl) 25 Mg Tab 25 MG PO HS for 30 Days, #30 TAB Budesonide (Budesonide) 3 Mg Cap 3 MG PO UD for 21 Days, #49 CAP Take three 3mg capsules once every morning for 7 days. Then taper to two 3mg capsules once every morning for 14 days or until follow-up appointment. Clonidine HCl (Clonidine HCl) 0.1 Mg Tab 0.05 MG PO BID for 30 Days, #60 TAB Diphenoxylate/Atropine (Diphenoxylate/Atropine 2.5-0.025 mg) 1 Tab Tab 2 TAB PO TID for 30 Days, #180 TAB Changed Medications: Potassium Chloride Pwd (Klor-Con Pwd) 20 Meq Pack 40 MEQ PO DAILY for 30 Days (Changed from: 20 MEQ) Continued Medications: Albuterol Hfa (Ventolin Hfa) 200 Puffs/19699 Mcg Aers 3-4 PUFFS INH QID PRN for sob/wheezing, #1 INHALER Albuterol Sulf (Proventil 0.083% 2.5MG/3ML) 2.5 Mg/3 Ml Nebu 2.5 MG INH QID PRN for Wheezing, EA Alprazolam (Xanax) 0.5 Mg Tab 0.5 MG PO HS PRN for Sleep, TAB Aspirin (Aspirin Chewable) 81 Mg Chew 81 MG PO QAM Atorvastatin (Lipitor) 80 Mg Tab 1 TAB PO DAILY for 30 Days, #30 TAB 5 Refills Cholestyramine (Questran) 4 Gm Pow 4 GM PO BID for 30 Days, #240 GM (This prescription has been renewed) mix with liquid Dexamethasone Sod Phos (Dexamethasone Sodium Phos) 4 Mg/Ml Inj 1 ML IM DIRECTED PRN for emergency treatment Fluoxetine HCl (Fluoxetine HCl) 20 Mg Cap 20 MG PO QAM, #90 Fluticasone Furoate-Vilanterol (Breo Ellipta) 1 Inh Inh 1 INHA PO DAILY Hydrocortisone (Cortef) 10 Mg Tab 1 TAB PO DAILYBD, TAB 6pm Hydrocortisone (Cortef) 10 Mg Tab 2 TAB PO DAILY Hydroxyzine Hcl (Atarax) 50 Mg Tab 50 MG PO HS PRN for Insomnia, TAB Insulin Glargine (Lantus) 100 Unit/Ml Inj 10-20 UNITS SC UD, VIAL USE DIRECTED Insulin Lispro (Human) (Humalog) 100 Unit/Ml Inj SC ACHS SLIDING SCALE, MAX UNITS DAILY, 40 UNITS Ipratropium-Albuterol (Duoneb) 3 Ml Nebu 1 TREATMENT INH QID PRN for sob/wheezing, #30 INHA Isosorbide Mononitrate Ext Rel (Imdur Ext Rel) 60 Mg Ertab 60 MG PO QAM, TAB Lisinopril (Zestril) 5 Mg Tab 5 MG PO QAM, TAB Magnesium Oxide (Magnesium-Oxide) 400 Mg Tab 400 MG PO BID for 30 Days, TAB Mirtazapine (Remeron) 30 Mg Tab 1 TAB PO HS PRN for Insomnia for 30 Days, #30 TAB 1 Refill Oxycodone/Acetaminophen 7.5MG/325MG (Oxycodone/Acetaminophen 7.5MG/325MG) 1 Tab Tab 1 TAB PO Q8 PRN for Pain, TAB Pancrelipase (Lipase-Protease- (Creon) 1 Cap Cap 2 CAP PO WM for 30 Days, #60 (This prescription has been renewed) Pancrelipase (Lipase-Protease- (Creon) 1 Cap Cap 1 CAP PO SNACKS for 30 Days, #30 (This prescription has been renewed) Ranitidine Hcl (Zantac) 150 Mg Tab 150 MG PO BID, TAB Tiotropium [place] (Spiriva Handihaler) 30 Puff/540 Mcg Aerp 1 CAP INH DAILY, INHALER Discontinued Medications: Diphenoxylate/Atropine (Lomotil) Tab 2 TAB PO TID for 30 Days, TAB Admission Information HPI (per Admitting provider): 62 year old male who presents to the ER with diarrhea, abdominal pain, and generalized weakness. Patient was recently admitted to [facility] 05/22 - 05/31 for acute on chronic diarrhea due to microscopic colitis, electrolyte abnormalities , and CRISTIAN. At discharge, patient's Questran and Lomotil were increased and patient was started on amitriptyline, budesonide, clonidine, and Pepto Bismol. Patient reports he had been feeling well and diarrhea actually slowed down a bit. Since he was feeling better, he decided to self stop the aforementioned medications as well as the Vanco taper he was on for a recent C. Diff infection. He saw his primary winderman as an outpatient who the patient reports was ok with this. A few days ago patient reports he started to feel very weak. He then developed severe lower abdominal pain, diarrhea, and nausea. Abdominal pain has been worse over the LLQ compared to the RLQ. He denies any vomiting. Diarrhea has been non bloody. He felt as though his [place] 's was flaring so he used IM Decadron once. He has been taking his medications sparingly. He denies fever and chills. He has has lightheadedness and dizziness but denies any syncopal events. No chest pain or shortness of breath. No urinary symptoms. Patient was seen by his PCP today and had positive orthostatic vitals. Outpatient labs shows phos 1.4, Ca+ 11.4, and K+ 5.1. Patient was then referred to the ER for further evaluation. In the ER, patient' s vitals are stable. Labs obtained here are similar to outpatient labs. Physical Exam (per Admitting): General Appearance: + mild distress (appears to be in pain, tearful at times ) Head: normocephalic Eyes: normal inspection ENT: hearing grossly normal Neck: supple, no JVD Respiratory/Chest: no respiratory distress, + wheezing (scattered, I/E) Cardiovascular: regular rate, rhythm, no edema, normal peripheral pulses Abdomen/GI: normal bowel sounds, soft, + tenderness (BL LQ, L > R) Extremities/Musculoskelatal: normal inspection, no calf tenderness Neurologic/Psych: no motor/sensory deficits, alert, normal mood/affect, oriented x 3 Skin: normal color, warm/dry Hospital Course Chronic diarrhea: improving -Hx of chronic collagenous diarrhea and microscopic colitis -Had recurrent admission for diarrhea at [facility] 05/22 - 05/31 -patient's Questran and Lomotil were increased and was started on amitriptyline, budesonide, clonidine, and Pepto Bismol -continued on Vanco taper from prior C. Diff infection -once home, patient self stopped the new medications as well as the Vanco -CT abd/pelvis showed no evidence of bowel obstruction, no evidence of free air. nonspecific infiltration of the left mid abdominal small bowel mesentery. - provided IVF, pain management -C diff negative -Decreased frequency of watery diarrhea episodes. Baseline of 20 episodes a day. -Continue pancreas enzymes, Questran 4g BID, Lomotil 2g TID, Clonidine 0.05mg BID and Amitriptyline 25mg qHS -Continue trial of Entocort 9mg daily x 1 week, then Entocort 6mg x 2 weeks or till follow-up with out-patient GI -Spoke with GI; patient cleared to go home -Follow up with out-patient GI in a few weeks Leukocytosis: stable -Has been fluctuating between 8-12 over the past few days. Stable at 11.85 -Afebrile, no URI symptoms, cough, SOB, dysuria -Negative test for C diff toxin -Recheck CBC at hospital follow-up appt CRISTIAN: resolved -Prerenal due to GI loss from persistent diarrhea - IVF, PO fluids Electrolyte imbalances: -Continues to have fluctuation with phos,mg and k -Related to GI loss with diarrhea -Replaced - K supplement increased -Recheck BMP, mag and phos at hospital follow-up appt Generalized Weakness: -Due to electrolytes abnormality and diarrhea -PT - resolved Hypercalcemia: resolved -Ca level on admission 11.1, given IV fluids, now 8.7 - likely from dehydration - PTH < 5.5 - monitor Adrenal Insufficiency: -BP currently stable -Continue home dose PO hydrocortisone - arranged appointment to see Dr. Mcghee on follow up next week CAD: -Denies any chest pain -Continue nitrate, ASA, and statin -Not on BB due to bradycardia episodes COPD: -Asymptomatic -Counseling on smoking cessation -Continue home inhalers, PRN nebs HTN: -BP controlled DM -Hba1c 7.5 on 04/2017 -Resume home meds at discharge Total time spent on discharge = 60 This includes examination of the patient, discharge planning, medication reconciliation, and communication with other providers. Discharge Instructions Discharge Instructions Date of Service Jul 02, 2017. Admission Reason for Admission: Electrolyte Abnormality Discharge Discharge Diagnosis / Problem: RECURRENT DIARRHEA Discharge Goals Goal(s): Decrease discomfort, Improve function, Improve nutritional status Activity Recommendations Activity Limitations: as noted below (INCREASE ACTIVITY GRADUALLY TOLERATED) Lifting Limitations: until after follow-up appointment Exercise/Sports Limitations: until after follow-up appointment . Instructions / Follow-Up Instructions / Follow-Up You were admitted for electrolyte abnormalities due to chronic, worsening diarrhea. You were started on new medications to help with diarrhea management. Your electrolytes were replaced while in the hospital. Please continue to eat a healthy diet of lean protein, whole grains, vegetables and fruits. Your follow up-appointment with Dr. Lin is July 07 at 2:45pm. Follow up with Failure Analysis Technician Dr. Mcghee on July 08, 2017 at 11:00am. Please follow-up with out-patient GI and endocrinology. Dr. Lin can help coordinate this. If you start to experience pain with bowel movements, worsening diarrhea, weakness or dizziness, please call you PCP or return to the ER immediately. You have been provided with the following prescriptions to fill at your preferred pharmacy. Please take them according to the instructions. - Pancreas enzymes - Questran 4g BID. - Lomotil 2g TID, - Clonidine 0.05mg BID - Amitriptyline 25mg QHS - Trial Entocort 9 mg once daily x 1 week, Entocort 6 mg daily x 2 weeks or until evaluated by his primary winderman We increased your daily dose of Klor-Con from 20m Eq to 40mEq daily. Current Hospital Diet Patient's current hospital diet: AHA Diet (Heart Healthy), Diabetes Type 2 Diet , Low Potassium Diet (2g K), Low Lactose Diet Discharge Diet Recommended Diet: AHA Diet (Heart Healthy), Diabetes Type 2 Diet, Low Potassium Diet (2g K), Low Lactose Diet Pending Studies Studies pending at discharge: no Laboratory Results Hemoglobin A1c Test 05/24/17 06:30 Range/Units Estimated Average Glucose 171 mg/dl Hemoglobin A1c 7.6 H 4.5-5.6 % Medical Emergencies . Who to Call and When: Medical Emergencies: If at any time you feel your situation is an emergency, please call 911 immediately. . Non-Emergent Contact Non-Emergency issues call your: Primary Care Provider Call Non-Emergent contact if: you have a fever, your pain is not controlled, your pain is worsening, you have any medication questions . Past History Medical & Surgical History: (1) Adrenal insufficiency (2) Avelina's syndrome (3) DM type 2 (diabetes mellitus, type 2) (4) HTN (hypertension) (5) Microscopic colitis (6) COPD (chronic obstructive pulmonary disease) (7) HLD (hyperlipidemia) (8) Depression with anxiety (9) CAD (coronary artery disease) . "Provider Documentation" section prepared by Cecilia Vogt. . VTE Core Measure Inpt VTE Proph given/why not?: SCD's [place] Drug Monitoring Program Search Results: no issues identified
[2017-07-02 13:57] VITALS: BP 156/91; PULSE 73; TEMP 36.6; O2SAT 99
== END 2017-07-02 15:30 | disposition home or self-care (01) | DRG 683 ==
LOC: C.EDB 16:05 → C.2E 17:44 → ENRESERV 18:14 → C.4E 06-26 15:41
PROVIDERS: ADMIT Internal Medicine; ATTEND Internal Medicine
DX: N17.9 Acute kidney failure, unspecified (principal); E27.40 Unspecified adrenocortical insufficiency; E24.9 Cushing's syndrome, unspecified; R19.7 Diarrhea, unspecified; E11.9 Type 2 diabetes mellitus without complications; I10 Essential (primary) hypertension; E78.5 Hyperlipidemia, unspecified; F17.210 Nicotine dependence, cigarettes, uncomplicated; I25.10 Atherosclerotic heart disease of native coronary artery without angina pectoris; J44.9 Chronic obstructive pulmonary disease, unspecified; F41.8 Other specified anxiety disorders; E83.39 Other disorders of phosphorus metabolism; E83.42 Hypomagnesemia; E83.52 Hypercalcemia; D72.829 Elevated white blood cell count, unspecified; Z83.3 Family history of diabetes mellitus; Z88.8 Allergy status to other drugs, medicaments and biological substances; Z79.82 Long term (current) use of aspirin; Z79.899 Other long term (current) drug therapy; Z79.4 Long term (current) use of insulin

== ENCOUNTER 2017-09-13 10:05 | Inpatient (IN) | payer OTHER ==
[~2017-09-13] VITALS: Ht 175.3 cm; Wt 77.3 kg
[~2017-09-13 10:05] MED LIST changes: -DIPH-416 PO; +HYDR-3126 PO; +LMTHP PO; +MIRT30TA PO; -MISCCAP80 PO; -OXYC7.5T62 PO; +OXYC7.5T66 PO; +PANC24002 PO; +PANC6000 PO; -PPTBS PO; -VANC5CAP PO
[2017-09-13] MEDS ORDERED: SODIUM CHLORIDE 0.9% 1000ML 1,000 ML IV STA ×2 (10:25)
[2017-09-13] MEDS ORDERED: HYDROCORTISONE SOD SUCCINATE 100 MG/2 ML VIAL IV STA (10:32)
[2017-09-13] MEDS ORDERED: SODIUM CHLORIDE 0.9% 500ML 500 ML IV STA ×2 (10:32→12:51)
[2017-09-13] MEDS ORDERED: ONDANSETRON 8 MG/54 ML D5W IV ONE (10:45)
[2017-09-13] MEDS ORDERED: HYDR10TA52 PO (11:03)
[2017-09-13] MEDS ORDERED: HYD10 PO ×2 (11:03)
[2017-09-13] MEDS: HYDROmorphone INJ 0.5 MG/0.5 ML SYR IV PRN ×6 (11:06→17:29)
[2017-09-13 11:11] LABS: BASO % 0.2 %; BASO ABS # 0.03 K/uL (0-0.2); COMPLETE YES; HEMATOCRIT 48.9 % (42-52); IG% 0.7 %; LYMPH % 24.9 %; LYMPH ABS # 3.04 K/uL (1.2-3.4); MEAN CELL VOLUME 89.9 fL (80-100); MEAN CORPUSCULAR HEMOGLOBIN 31.4 pg (25-34); MEAN PLATELET VOLUME 9.9 fL (7.4-10.4); NEUT % 64.2 %; PLATELET COUNT 218 K/uL (130-400); RED BLOOD COUNT 5.44 M/uL (4.7-6.1)
[2017-09-13 11:19] LABS: PARTIAL THROMBOPLASTIN RATIO 0.9; PROTHROMBIN TIME (PATIENT) 10.3 SECONDS (9.0-12.0)
[2017-09-13 11:33] LABS: ALT/SGPT 35 U/L (12-78); BLOOD UREA NITROGEN 28 mg/dl (7-18); CALCIUM 10.3 mg/dl (8.5-10.1); CARBON DIOXIDE 19 mmol/L (21-32); CHLORIDE 105 mmol/L (98-107); CREATININE 2.54 mg/dl (0.60-1.40); GLUCOSE 114 mg/dl (70-99); POTASSIUM 4.1 mmol/L (3.5-5.1); SODIUM 135 mmol/L (136-145)
[2017-09-13 11:44] LABS: ALKALINE PHOSPHATASE 129 U/L (45-117); AST/SGOT 22 U/L (15-37); THYROID STIMULATING HORMONE 0.968 uIu/ml (0.300-4.500)
--- NOTE | 2017-09-13 13:54 | DIAGNOSTIC IMAGING REPORT ---
CT SCAN OF THE ABDOMEN AND PELVIS WITHOUT CONTRAST CLINICAL HISTORY: History of ulcerative colitis. Diarrhea. Lower abdominal pain. COMPARISON STUDY: 06/25/2017 TECHNIQUE: CT scan of the abdomen and pelvis was performed from the lung bases to the proximal femurs. Images are reviewed in the axial, sagittal, and coronal planes. IV contrast was not administered for this examination. A dose lowering technique was utilized adhering to the principles of ALARA. CT DOSE: 631.12 mGycm FINDINGS: Lower chest: The heart is normal in size and configuration, without pericardial effusion. The lung bases and pleural spaces are clear. Liver: The unenhanced liver is normal in size, contour, and attenuation. There is no intrahepatic biliary ductal dilatation. Gallbladder: Unremarkable. Spleen: Normal in size and attenuation. Pancreas: Unremarkable. Adrenal glands: Unremarkable. Kidneys: No renal, ureteral, or bladder calculi are visualized. There is 16 mm upper pole right renal hypodense lesion, likely representing a cyst. There are few faint cortical calcifications within the midpole the right kidney possibly within a complex cystic lesion. Bowel: There are no transition zones to indicate bowel obstruction. There is no evidence of acute diverticulitis. The appendix is not visualized with certainty. There are no findings to indicate acute appendicitis. Peritoneum: There is no intraperitoneal free air or abdominal ascites. Vasculature: There is mild aortic ectasia. There is no evidence of aneurysmal dilatation. There are vascular calcifications present. Adenopathy: None. Pelvic viscera: The bladder, and pelvic viscera are unremarkable. Skeletal structures: No destructive osseous lesions are seen. IMPRESSION: 1. No evidence of bowel obstruction. No evidence of free air 2. No renal, ureteral, or bladder calculi identified 3. No acute inflammatory changes Electronically signed by: Oliverio Crawford M.D. 09/13/2017 1:52 PM Dictated Date/Time: 09/13/2017 1:47 PM
[2017-09-13 14:41] LABS: URINE APPEARANCE CLOUDY (CLEAR); URINE BILIRUBIN NEG (NEG); URINE COLOR YELLOW; URINE EPITHELIAL CELL AUTO >30 /lpf (0-5); URINE NITRITE NEG (NEG); URINE SPECIFIC GRAVITY 1.018 (1.000-1.030); UROBILINOGEN NEG (NEG)
[2017-09-13 14:42] LABS: MANUAL MICROSCOPIC REQUIRED? NO; REVIEW REQ? YES
[2017-09-13 15:26] VITALS: Ht 175.3 cm; Wt 77.3 kg
[2017-09-13] MEDS ORDERED: PHARMACY GLYCEMIC MGMT CONSULT STA (16:10)
[2017-09-13] MEDS ORDERED: GLUCOSE 40% GEL 15 GM TUBE PO PRN (16:15)
[2017-09-13] MEDS ORDERED: GLUCOSE 10 TABS/TUBE PO PRN (16:15)
[2017-09-13] MEDS ORDERED: GLUCAGON FOR INJ 1 MG VIAL SQ PRN (16:15)
[2017-09-13] MEDS ORDERED: DEXTROSE 50% 50 ML SYR IV PRN (16:15)
[2017-09-13] MEDS ORDERED: ACETAMINOPHEN 325 MG TAB PO PRN (16:30)
[2017-09-13] MEDS ORDERED: MIRTAZAPINE TAB 15 MG TAB PO PRN (16:30)
[2017-09-13] MEDS ORDERED: ALPRAZOLAM 0.5 MG TAB PO PRN (16:30)
[2017-09-13] MEDS ORDERED: hydrOXYzine HCL 25 MG TAB PO PRN (16:30)
[2017-09-13] MEDS ORDERED: ONDANSETRON INJ 2 MG/ML 2 ML VIAL IV PRN (16:30)
--- NOTE | 2017-09-13 16:54 | History and Physical ---
History & Physical Date & Time of Service: Sep 13, 2017 at 16:39 Chief Complaint: Diarrhea,Low Bp 80/62 Primary Care Physician: Tony Lin D.O. History of Present Illness Source: patient, clinic records, hospital records 62 year old male with history of Ulcerative Colitis, Adrenal Insufficiency, CAD , DM, HTN, presenting with diarrhea and weakness x 5 days. Patient was at his usual state of health until 5 days ago when he started to have loose watery stools, about 10x /day, non bloody, associated with diffuse abdominal cramping. He had very poor oral intake as well and became progressively weak. Denies fever/chills, chest pain, dyspnea. At the ER, patient arrived with marginal BP. He was given multiple IV NSS boluses and Hydrocortisone 100mg IV. CT abdomen/pelvis was unrevealing. On exam, patient sitting up in bed, not in distress, appears tired but alert, pleasant. States he feels slightly improved, still has some abdominal pain and diarrhea today. No other symptoms. Past Medical/Surgical History Medical Problems: (1) Adrenal insufficiency Status: Chronic (2) C. difficile diarrhea Status: Chronic (3) CAD (coronary artery disease) Permanent Comment: 2002 - PCI to RCA 2004- PCI to OM1 Status: Chronic (4) COPD (chronic obstructive pulmonary disease) Status: Chronic (5) Avelina's syndrome Status: Chronic (6) Depression with anxiety Status: Chronic (7) DM type 2 (diabetes mellitus, type 2) Status: Chronic (8) HLD (hyperlipidemia) Status: Chronic (9) HTN (hypertension) Status: Chronic (10) Microscopic colitis Status: Chronic Family History Diabetes mellitus FATHER MOTHER Social History Smoking Status: Current Every Day Smoker Drug Use: none Marital Status: Occupational Status: employed Immunizations History of Influenza Vaccine: Yes Influenza Vaccine Date: Sep 17, 2015 History of Pneumococcal: Yes Pneumococcal Date: Jan 21, 2010 Allergies Coded Allergies: Azathioprine (Verified Adverse Reaction, Unknown, RENAL COMPLICATIONS, 06/25) Home Medications Scheduled Aspirin (Aspirin Chewable), 81 MG PO QAM Atorvastatin (Lipitor), 1 TAB PO DAILY Cholestyramine (Questran), 4 GM PO BID Diphenoxylate/Atropine (Diphenoxylate/Atropine 2.5-0.025 mg), 2 TAB PO TID Fluoxetine HCl (Fluoxetine HCl), 20 MG PO QAM Fluticasone Furoate-Vilanterol (Breo Ellipta), 1 INHA PO DAILY Hydrocortisone (Cortef), 25 MG PO QAM Hydrocortisone (Cortef), 10 MG PO QDL Hydrocortisone (Cortef), 10 MG PO HS Insulin Glargine (Lantus), 10-20 UNITS SC UD Insulin Lispro (Human) (Humalog), SC ACHS Isosorbide Mononitrate Ext Rel (Imdur Ext Rel), 60 MG PO QAM Lisinopril (Zestril), 5 MG PO QAM Ranitidine Hcl (Zantac), 150 MG PO BID Tiotropium [place] (Spiriva Handihaler), 1 CAP INH DAILY Scheduled PRN Albuterol Hfa (Ventolin Hfa), 3-4 PUFFS INH QID PRN for sob/wheezing Albuterol Sulf (Proventil 0.083% 2.5MG/3ML), 2.5 MG INH QID PRN for Wheezing Alprazolam (Xanax), 0.5 MG PO HS PRN for Sleep Dexamethasone Sod Phos (Dexamethasone Sodium Phos), 1 ML IM DIRECTED PRN for emergency treatment Hydroxyzine Hcl (Atarax), 50 MG PO HS PRN for Insomnia Ipratropium-Albuterol (Duoneb), 1 TREATMENT INH QID PRN for sob/wheezing Mirtazapine (Remeron), 1 TAB PO HS PRN for Insomnia Review of Systems Constitutional- no fever; no weight loss Eyes- no acute visual changes ENT- no sinus drainage; no pharyngitis Pulmonary- no cough, no wheezing, no shortness of breath Cardiac- no chest pain, no palpitations, no orthopnea, no dependent edema GI- (+) as noted above - no dysuria, no hematuria Musculoskeletal- no arthralgias, no myalgias Derm- no rashes, no new skin lesions, no changing skin lesions Hematologic- no unusual bruising, no unusual bleeding Lymphatics- no adenopathy Endocrine- no polyuria or polydipsia; no heat or cold intolerance Neuro- no headaches, no focal neurologic symptoms Psych- no anxiety, no depression Physical Exam Vital Signs Date Time Temp Pulse Resp B/P (MAP) Pulse Ox O2 Delivery O2 Flow Rate FiO2 09/13/17 16:22 83 94 Room Air 09/13/17 16:05 93/59 09/13/17 15:26 Room Air 09/13/17 14:09 82 18 90/56 96 Room Air 09/13/17 14:03 84 09/13/17 12:45 75 20 89/61 98 Room Air 09/13/17 11:40 76 20 99/67 98 Room Air 09/13/17 11:12 83 09/13/17 10:53 98 Room Air 09/13/17 10:15 36.5 108 16 89/61 100 Room Air General Appearance: WD/WN, no apparent distress Head: normocephalic, atraumatic Eyes: normal inspection, PERRL, EOMI, sclerae normal ENT: normal ENT inspection, hearing grossly normal, pharynx normal Neck: supple, no adenopathy, thyroid normal, no JVD, trachea midline Respiratory/Chest: chest non-tender, lungs clear, normal breath sounds, no respiratory distress, no accessory muscle use Cardiovascular: regular rate, rhythm, no edema, no JVD, no murmur Abdomen/GI: normal bowel sounds, soft, no organomegaly, + pertinent finding ( mild tenderness on right LQ) Back: normal inspection, no CVA tenderness, no muscle spasm Extremities/Musculoskelatal: normal inspection, no calf tenderness, normal capillary refill, no pedal edema, normal range of motion, non-tender Neurologic/Psych: cotton washer II-XII nml as tested, no motor/sensory deficits, alert, normal mood/affect, oriented x 3 Skin: normal color, warm/dry, no rash Lymphatic: no adenopathy Diagnostics Laboratory Results Results Past 24 Hours Test 09/13/17 10:50 09/13/17 11:02 09/13/17 14:00 Range/Units White Blood Count 12.20 4.8-10.8 K/uL Red Blood Count 5.44 4.7-6.1 M/uL Hemoglobin 17.1 14.0-18.0 g/dL Hematocrit 48.9 42-52 % Mean Corpuscular Volume 89.9 80-100 fL Mean Corpuscular Hemoglobin 31.4 25-34 pg Mean Corpuscular Hemoglobin Concent 35.0 32-36 g/dl Platelet Count 218 130-400 K/uL Mean Platelet Volume 9.9 7.4-10.4 fL Neutrophils (%) (Auto) 64.2 % Lymphocytes (%) (Auto) 24.9 % Monocytes (%) (Auto) 7.0 % Eosinophils (%) (Auto) 3.0 % Basophils (%) (Auto) 0.2 % Neutrophils # (Auto) 7.82 1.4-6.5 K/uL Lymphocytes # (Auto) 3.04 1.2-3.4 K/uL Monocytes # (Auto) 0.86 0.11-0.59 K/uL Eosinophils # (Auto) 0.36 0-0.5 K/uL Basophils # (Auto) 0.03 0-0.2 K/uL RDW Standard Deviation 50.8 36.4-46.3 fL RDW Coefficient of Variation 15.5 11.5-14.5 % Immature Granulocyte % (Auto) 0.7 % Immature Granulocyte # (Auto) 0.09 0.00-0.02 K/uL Prothrombin Time 10.3 9.0-12.0 SECONDS Prothromb Time International Ratio 1.0 0.9-1.1 Activated Partial Thromboplast Time 23.7 21.0-31.0 SECONDS Partial Thromboplastin Ratio 0.9 Sodium Level 135 136-145 mmol/L Potassium Level 4.1 3.5-5.1 mmol/L Chloride Level 105 98-107 mmol/L Carbon Dioxide Level 19 21-32 mmol/L Anion Gap 11.0 3-11 mmol/L Blood Urea Nitrogen 28 7-18 mg/dl Creatinine 2.54 0.60-1.40 mg/dl Est Creatinine Clear Calc Drug Dose 30.2 ml/min Estimated GFR () 30.2 Estimated GFR (Non- 26.0 BUN/Creatinine Ratio 11.0 10-20 Random Glucose 114 70-99 mg/dl Calcium Level 10.3 8.5-10.1 mg/dl Magnesium Level 2.0 1.8-2.4 mg/dl Total Bilirubin 0.5 0.2-1 mg/dl Direct Bilirubin 0.1 0-0.2 mg/dl Aspartate Amino Transf (AST/SGOT) 22 15-37 U/L Alanine Aminotransferase (ALT/SGPT) 35 12-78 U/L Alkaline Phosphatase 129 45-117 U/L Troponin I < 0.015 0-0.045 ng/ml Total Protein 8.4 6.4-8.2 gm/dl Albumin 4.0 3.4-5.0 gm/dl Lipase 200 73-393 U/L Thyroid Stimulating Hormone (TSH) 0.968 0.300-4.500 uIu/ml Bedside Lactic Acid Venous 1.57 0.90-1.70 mmol/L Urine Color YELLOW Urine Appearance CLOUDY CLEAR Urine pH 5.0 4.5-7.5 Urine Specific [place] 1.018 1.000-1.030 Urine Protein NEG NEG Urine Glucose (UA) NEG NEG Urine Ketones NEG NEG Urine Occult Blood NEG NEG Urine Nitrite NEG NEG Urine Bilirubin NEG NEG Urine Urobilinogen NEG NEG Urine Leukocyte Esterase SMALL NEG Urine WBC (Auto) 5-10 0-5 /hpf Urine RBC (Auto) 5-10 0-4 /hpf Urine Hyaline Casts (Auto) >30 0-5 /lpf Urine Epithelial Cells (Auto) >30 0-5 /lpf Urine Bacteria (Auto) NEG NEG Urine Renal Epithelial Cells 10-20 0-5 /lpf Urine Pathogenic Casts 0 /lpf Microbiology Results 09/13/17 Blood Culture, Received Pending 09/13/17 Blood Culture, Received Pending 09/13/17 C.difficile Toxin B Gene (PCR), Received Pending 09/13/17 Shiga Toxin Test, Received Pending 09/13/17 Stool Culture, Received Pending 09/13/17 Urine Culture, Received Pending Diagnostic Radiology CT abdomen: IMPRESSION: 1. No evidence of bowel obstruction. No evidence of free air 2. No renal, ureteral, or bladder calculi identified 3. No acute inflammatory changes Impression Assessment and Plan 62 year old male with history of Ulcerative Colitis, Adrenal Insufficiency, CAD , DM, HTN, presenting with diarrhea and weakness x 5 days. DIARRHEA WITH ABDOMINAL PAIN LIKELY ULCERATIVE COLITIS FLARE R/O INFECTIOUS DIARRHEA - stool cultures stool for C diff Ag - empiric Cipro + Metro Hydrocortisone 50mg QID IV fluids clear liquids - consult GI ACUTE RENAL FAILURE - likely pre renal from GI losses - IV NSS monitor crea - hold Lisinopril renally dose medications BORDERLINE HYPOTENSION ADRENAL INSUFFICIENCY - hold Imdur, Lisinopril - IV fluids stress dose Hydrocortisone 50mg QID monitor CAD - continue Aspirin hold Imdur, Simvastatin, Lisinopril DM - hold Lantus and Aspart - ISS for now Pharmacy Glycemic Control SVC consulted DVT PROPHYLAXIS SCDs Lovenox contraindicated as patient having Colitis, high risk for bleeding FULL CODE Disposition pending anticipate d/c home when medically stable PCP Dr. Riley Keith Advanced Directives Existing Living Will: No Existing Power of [place]: No VTE Prophylaxis VTE Risk Assessment Done? Y/N: Yes Risk Level: Moderate
[2017-09-13] MEDS ORDERED: CIPROFLOXACIN CONSULT ACTIVE PRN ×2 (17:30)
[2017-09-13] MEDS ORDERED: METRONIDAZOLE CONSULT ACTIVE PRN (17:30)
--- NOTE | 2017-09-13 17:44 | EMERGENCY ROOM VISIT NOTE ---
History Report prepared by Tisha: Darren Bernal Under the Supervision of: Dr. Duane Perez M.D. First contact with patient: 10:25 Chief Complaint: DIARRHEA Stated Complaint: DIARRHEA,LOW BP 80/62 History of Present Illness The patient is a 62 year old male with a history of ulcerative colitis and diabetes who presents to the Emergency Room with complaints of a worsening illness that started a few days ago. He says that he has been dealing with diagnosed ulcerative colitis for 15 years on-and-off, and follow-up with Dr. Keith of GI. The patient notes that he thinks that he is having another episode of colitis. He says that he started having episodes of diarrhea a few days ago, and has been feeling weak. The patient's took the patient's blood pressure prior to arrival, and it was low at 90/58. The patient says that this typically happens during his previous colitis episodes. He adds that he has abdominal pain, which he rates as a 3 out of 10 in severity. The patient says that he has burning with urination, with decreased frequency. He adds that he has lost 10 pounds in a couple weeks. Pt denies LOC, headache, fevers, chills , diaphoresis, visual changes, neck pain, chest pain, breathing difficulties, nausea, vomiting, back pain, melena, hematochezia, numbness, lymphadenopathy, rash, or other complaints. Source of History: patient, spouse/significant other Onset: A few days ago Position: other (global - illness) Quality: other (like previous colitis episodes) Timing: worsening Associated Symptoms: + abdominal pain, + diarrhea, + urinary symptoms, + weakness Note: Associated symptoms: Low blood pressure (90/58). Review of Systems See HPI for pertinent positives and negatives. A total of ten systems were reviewed and were otherwise negative. Past Medical & Surgical Medical Problems: (1) Acute renal failure (2) Acute renal failure (ARF) (3) Adrenal insufficiency (4) C. difficile diarrhea (5) CAD (coronary artery disease) (6) COPD (chronic obstructive pulmonary disease) (7) [place]'s syndrome (8) Depression with anxiety (9) DM type 2 (diabetes mellitus, type 2) (10) HLD (hyperlipidemia) (11) HTN (hypertension) (12) Microscopic colitis Family History Diabetes mellitus FATHER MOTHER Social History Smoking Status: Current Every Day Smoker Alcohol Use: occasionally Drug Use: none Marital Status: Housing Status: lives with family Occupation Status: employed Current/Historical Medications Scheduled Aspirin (Aspirin Chewable), 81 MG PO QAM Atorvastatin (Lipitor), 1 TAB PO DAILY Cholestyramine (Questran), 4 GM PO BID Diphenoxylate/Atropine (Diphenoxylate/Atropine 2.5-0.025 mg), 2 TAB PO TID Fluoxetine HCl (Fluoxetine HCl), 20 MG PO QAM Fluticasone Furoate-Vilanterol (Breo Ellipta), 1 INHA PO DAILY Hydrocortisone (Cortef), 25 MG PO QAM Hydrocortisone (Cortef), 10 MG PO QDL Hydrocortisone (Cortef), 10 MG PO HS Insulin Glargine (Lantus), 10-20 UNITS SC UD Insulin Lispro (Human) (Humalog), SC ACHS Isosorbide Mononitrate Ext Rel (Imdur Ext Rel), 60 MG PO QAM Lisinopril (Zestril), 5 MG PO QAM Ranitidine Hcl (Zantac), 150 MG PO BID Tiotropium [place] (Spiriva Handihaler), 1 CAP INH DAILY Scheduled PRN Albuterol Hfa (Ventolin Hfa), 3-4 PUFFS INH QID PRN for sob/wheezing Albuterol Sulf (Proventil 0.083% 2.5MG/3ML), 2.5 MG INH QID PRN for Wheezing Alprazolam (Xanax), 0.5 MG PO HS PRN for Sleep Dexamethasone Sod Phos (Dexamethasone Sodium Phos), 1 ML IM DIRECTED PRN for emergency treatment Hydroxyzine Hcl (Atarax), 50 MG PO HS PRN for Insomnia Ipratropium-Albuterol (Duoneb), 1 TREATMENT INH QID PRN for sob/wheezing Mirtazapine (Remeron), 1 TAB PO HS PRN for Insomnia Allergies Coded Allergies: Azathioprine (Verified Adverse Reaction, Unknown, RENAL COMPLICATIONS, 06/25) Physical Exam Vital Signs Date Time Temp Pulse Resp B/P (MAP) Pulse Ox O2 Delivery O2 Flow Rate FiO2 09/13/17 16:05 93/59 09/13/17 15:26 Room Air 09/13/17 14:09 82 18 90/56 96 Room Air 09/13/17 14:03 84 09/13/17 12:45 75 20 89/61 98 Room Air 09/13/17 11:40 76 20 99/67 98 Room Air 09/13/17 11:12 83 09/13/17 10:53 98 Room Air 09/13/17 10:15 36.5 108 16 89/61 100 Room Air Physical Exam GENERAL: Awake, alert, well-appearing, in no distress HENT: Normocephalic, atraumatic. Oropharynx unremarkable. EYES: Normal conjunctiva. Sclera non-icteric. NECK: Supple. No nuchal rigidity. FROM. No JVD. RESPIRATORY: Clear to auscultation. CARDIAC: Regular rate, normal rhythm. Extremities warm and well perfused. Pulses equal. ABDOMEN: Soft, non-distended. Mild right lower abdominal tenderness but significant left upper and left lower tenderness. No rebound or guarding. No masses. RECTAL: Deferred. MUSCULOSKELETAL: Chest examination reveals no tenderness. The back is symmetrical on inspection without obvious abnormality. There is no CVA tenderness to palpation. No joint edema. LOWER EXTREMITIES: Calves are equal size bilaterally and non-tender. No edema. No discoloration. NEURO: Normal sensorium. No sensory or motor deficits noted. SKIN: No rash or jaundice noted. Medical Decision & Procedures ER Provider Diagnostic Interpretation: CT: Radiology results as stated below per my review and radiologist interpretation CT SCAN OF THE ABDOMEN AND PELVIS WITHOUT CONTRAST CLINICAL HISTORY: History of ulcerative colitis. Diarrhea. Lower abdominal pain. COMPARISON STUDY: 06/25/2017 TECHNIQUE: CT scan of the abdomen and pelvis was performed from the lung bases to the proximal femurs. Images are reviewed in the axial, sagittal, and coronal planes. IV contrast was not administered for this examination. A dose lowering technique was utilized adhering to the principles of ALARA. CT DOSE: 631.12 mGycm FINDINGS: Lower chest: The heart is normal in size and configuration, without pericardial effusion. The lung bases and pleural spaces are clear. Liver: The unenhanced liver is normal in size, contour, and attenuation. There is no intrahepatic biliary ductal dilatation. Gallbladder: Unremarkable. Spleen: Normal in size and attenuation. Pancreas: Unremarkable. Adrenal glands: Unremarkable. Kidneys: No renal, ureteral, or bladder calculi are visualized. There is 16 mm upper pole right renal hypodense lesion, likely representing a cyst. There are few faint cortical calcifications within the midpole the right kidney possibly within a complex cystic lesion. Bowel: There are no transition zones to indicate bowel obstruction. There is no evidence of acute diverticulitis. The appendix is not visualized with certainty. There are no findings to indicate acute appendicitis. Peritoneum: There is no intraperitoneal free air or abdominal ascites. Vasculature: There is mild aortic ectasia. There is no evidence of aneurysmal dilatation. There are vascular calcifications present. Adenopathy: None. Pelvic viscera: The bladder, and pelvic viscera are unremarkable. Skeletal structures: No destructive osseous lesions are seen. IMPRESSION: 1. No evidence of bowel obstruction. No evidence of free air 2. No renal, ureteral, or bladder calculi identified 3. No acute inflammatory changes Electronically signed by: Oliverio Crawford M.D. 09/13/2017 1:52 PM Dictated Date/Time: 09/13/2017 1:47 PM Laboratory Results 09/13/17 10:50 Red Blood Count 5.44, Mean Corpuscular Volume 89.9, Mean Corpuscular Hemoglobin 31.4, Mean Corpuscular Hemoglobin Concent 35.0, Mean Platelet Volume 9.9, Neutrophils (%) (Auto) 64.2, Lymphocytes (%) (Auto) 24.9, Monocytes (%) (Auto) 7.0, Eosinophils (%) (Auto) 3.0, Basophils (%) (Auto) 0.2, Neutrophils # (Auto) 7.82, Lymphocytes # (Auto) 3.04, Monocytes # (Auto) 0.86, Eosinophils # (Auto) 0.36, Basophils # (Auto) 0.03 09/13/17 10:50 Test 09/13/17 10:50 09/13/17 11:02 09/13/17 14:00 White Blood Count 12.20 K/uL (4.8-10.8) Red Blood Count 5.44 M/uL (4.7-6.1) Hemoglobin 17.1 g/dL (14.0-18.0) Hematocrit 48.9 % (42-52) Mean Corpuscular Volume 89.9 fL (80-100) Mean Corpuscular Hemoglobin 31.4 pg (25-34) Mean Corpuscular Hemoglobin Concent 35.0 g/dl (32-36) Platelet Count 218 K/uL (130-400) Mean Platelet Volume 9.9 fL (7.4-10.4) Neutrophils (%) (Auto) 64.2 % Lymphocytes (%) (Auto) 24.9 % Monocytes (%) (Auto) 7.0 % Eosinophils (%) (Auto) 3.0 % Basophils (%) (Auto) 0.2 % Neutrophils # (Auto) 7.82 K/uL (1.4-6.5) Lymphocytes # (Auto) 3.04 K/uL (1.2-3.4) Monocytes # (Auto) 0.86 K/uL (0.11-0.59) Eosinophils # (Auto) 0.36 K/uL (0-0.5) Basophils # (Auto) 0.03 K/uL (0-0.2) RDW Standard Deviation 50.8 fL (36.4-46.3) RDW Coefficient of Variation 15.5 % (11.5-14.5) Immature Granulocyte % (Auto) 0.7 % Immature Granulocyte # (Auto) 0.09 K/uL (0.00-0.02) Prothrombin Time 10.3 SECONDS (9.0-12.0) Prothromb Time International Ratio 1.0 (0.9-1.1) Activated Partial Thromboplast Time 23.7 SECONDS (21.0-31.0) Partial Thromboplastin Ratio 0.9 Anion Gap 11.0 mmol/L (3-11) Est Creatinine Clear Calc Drug Dose 30.2 ml/min Estimated GFR () 30.2 Estimated GFR (Non- 26.0 BUN/Creatinine Ratio 11.0 (10-20) Calcium Level 10.3 mg/dl (8.5-10.1) Magnesium Level 2.0 mg/dl (1.8-2.4) Total Bilirubin 0.5 mg/dl (0.2-1) Direct Bilirubin 0.1 mg/dl (0-0.2) Aspartate Amino Transf (AST/SGOT) 22 U/L (15-37) Alanine Aminotransferase (ALT/SGPT) 35 U/L (12-78) Alkaline Phosphatase 129 U/L (45-117) Troponin I < 0.015 ng/ml (0-0.045) Total Protein 8.4 gm/dl (6.4-8.2) Albumin 4.0 gm/dl (3.4-5.0) Lipase 200 U/L (73-393) Thyroid Stimulating Hormone (TSH) 0.968 uIu/ml (0.300-4.500) Bedside Lactic Acid Venous 1.57 mmol/L (0.90-1.70) Urine Color YELLOW Urine Appearance CLOUDY (CLEAR) Urine pH 5.0 (4.5-7.5) Urine Specific [place] 1.018 (1.000-1.030) Urine Protein NEG (NEG) Urine Glucose (UA) NEG (NEG) Urine Ketones NEG (NEG) Urine Occult Blood NEG (NEG) Urine Nitrite NEG (NEG) Urine Bilirubin NEG (NEG) Urine Urobilinogen NEG (NEG) Urine Leukocyte Esterase SMALL (NEG) Urine WBC (Auto) 5-10 /hpf (0-5) Urine RBC (Auto) 5-10 /hpf (0-4) Urine Hyaline Casts (Auto) >30 /lpf (0-5) Urine Epithelial Cells (Auto) >30 /lpf (0-5) Urine Bacteria (Auto) NEG (NEG) Urine Renal Epithelial Cells 10-20 /lpf (0-5) Urine Pathogenic Casts /lpf (0) Laboratory results reviewed by me Medications Administered Medications (Trade) Dose Ordered Sig/Tisha Route Start Time Stop Time Status Last Admin Dose Admin Sodium Chloride 1,000 ml @ 125 mls/hr Q8H STAT IV 09/13/17 10:25 09/13/17 17:29 DC 09/13/17 11:12 125 MLS/HR Sodium Chloride 1,000 ml @ 999 mls/hr Q1H1M STAT IV 09/13/17 10:25 09/13/17 11:25 DC 09/13/17 11:41 999 MLS/HR Hydrocortisone Sodium Succinate (Solu-Cortef IV) 100 mg NOW STAT IV 09/13/17 10:32 09/13/17 10:34 DC 09/13/17 11:06 100 MG Sodium Chloride 500 ml @ 999 mls/hr Q31M STAT IV 09/13/17 10:32 09/13/17 11:02 DC 09/13/17 11:12 999 MLS/HR Hydromorphone HCl (Dilaudid Inj) 0.5 mg Q20M PRN IV 09/13/17 10:45 09/13/17 17:29 DC 09/13/17 17:29 0.5 MG Ondansetron HCl (Zofran 8mg Iv) 8 mg NOW ONCE IV 09/13/17 10:45 09/13/17 10:46 DC 09/13/17 11:06 8 MG Sodium Chloride 500 ml @ 999 mls/hr Q31M STAT IV 09/13/17 12:51 09/13/17 13:21 DC 09/13/17 12:55 999 MLS/HR ECG Indication: other (hypotension) Rate (beats per minute): 85 Rhythm: normal sinus Findings: no acute ischemic change, no ectopy, other (nonspecific ST) ED Course 1025: Ordered NSS 1000 ml @ 999 mls/hr IV, NSS 1000 ml @ 125 mls/hr IV. 1028: The patient was evaluated in room A11B. A complete history and physical exam was performed. 1032: Ordered NSS 500 ml @ 999 mls/hr IV, Solu-Cortef IV 100 mg IV. 1045: Ordered Zofran 8 mg IV, Dilaudid Inj 0.5 mg IV PRN. 1308: I reevaluated the patient and he is feeling better and is updated. He is waiting for CT. 1530: Upon reexamination, the patient was resting. I discussed the test results and treatment plan with him. He expressed understanding and agreement. The patient will be evaluated for further management. 1531: I discussed the patient with Dr. Tereso Sorto press washer - he will evaluate the patient for further treatment. Medical Decision Triage Nursing notes reviewed. The patient's presentation and history were concerning for diarrhea and abdominal pain. Etiologies such as dehydration, electrolyte normality, inflammatory bowel disease, renal colic, PUD, biliary pathology, pancreatitis, mesenteric ischemia , aortic pathology, infections, genitourinary, UTI, perforated viscus, appendicitis, diverticulitis, obstruction, as well as others were entertained. Patient was evaluated. He was given IV fluids. Stress dose hydrocortisone was given. He received Zofran and multiple doses of IV Dilaudid for symptom control. On reassessment he was doing better but still had mild hypotension. Laboratory testing revealed a mild leukocytosis on CBC. Chemistry panel was concerning for acute renal failure. CT imaging was unremarkable. Consultation was made with internal medicine for further evaluation and management. Medication Reconcilliation Current Medication List: was personally reviewed by me Blood Pressure Screening Patient's blood pressure: Elevated blood pressure Referred to hospitalist. Consults Time Called: 152 Consulting Physician: Dr. Tereso Sorto press washer Returned Call: [phone] I discussed the patient with Dr. Tereso Sorto press washer - he will evaluate the patient for further treatment. Impression Primary Impression: Hypotension Additional Impressions: Left sided abdominal pain Renal failure, acute Diarrhea Scribe Attestation The scribe's documentation has been prepared under my direction and personally reviewed by me in its entirety. I confirm that the note above accurately reflects all work, treatment, procedures, and medical decision making performed by me. Departure Information Dispostion Being Evaluated By Hospitalist Referrals Tony Lin D.O. (PCP) Patient Instructions My [facility] Problem Qualifiers
[2017-09-13 18:03] VITALS: BP 108/73; PULSE 84; TEMP 36.5; O2SAT 96
[2017-09-13] MEDS: SODIUM CHLORIDE 0.9% 1000ML 1,000 ML IV SCH (18:10)
[2017-09-13] MEDS: CIPROFLOXACIN 400MG / D5W IV SCH (18:20)
[2017-09-13] MEDS ORDERED: PHARMACY GLYCEMIC MGMT CONSULT PRN (18:30)
[2017-09-13 18:58] VITALS: BP 113/75; PULSE 75; TEMP 36.5; O2SAT 100
[2017-09-13] MEDS: HYDROCORTISONE IV 50 MG in SYRINGE 0 ML IV SCH ×2 (19:52→23:53)
[2017-09-13] MEDS: RANITIDINE HCL 150 MG TAB PO SCH (19:52)
[2017-09-13] MEDS: METRONIDAZOLE 500MG / NSS IV SCH (19:52)
[2017-09-13] MEDS: DIPHENOXYLATE/ATROPINE 2.5/0.025MG TAB PO SCH (19:53)
[2017-09-13] MEDS: MoRPHine SULFATE 4 MG/ML 1 ML CARP\\VIAL IV PRN ×2 (19:56→23:52)
[2017-09-13] MEDS: INSULIN ASPART 100 UNITS/ML 3 ML PEN SC SCH (21:02)
[2017-09-13] MEDS: CHOLESTYRAMINE LIGHT 4 GM PKT PO SCH (21:04)
[2017-09-13] MEDS ORDERED: INSULIN GLARGINE SOLOSTAR 100 UNITS/ML 3 ML PEN SC STA (21:15)
[2017-09-13] MEDS ORDERED: INSULIN REGULAR 5 UNITS in SYRINGE 0 ML IV SCH (21:30)
[2017-09-13 23:28] VITALS: BP 112/62; PULSE 75; TEMP 36.4; O2SAT 98
[2017-09-14] VITALS (7 sets, daily range): BP systolic 115–136; BP diastolic 72–86; PULSE 62–83; TEMP 36.3–36.6; O2SAT 98–100
[2017-09-14] MEDS ORDERED: INSULIN ASPART 100 UNITS/ML 3 ML PEN SC SCH
[2017-09-14] MEDS: SODIUM CHLORIDE 0.9% 1000ML 1,000 ML IV SCH ×3 (03:56→18:24)
[2017-09-14] MEDS: METRONIDAZOLE 500MG / NSS IV SCH ×2 (03:56→12:00)
[2017-09-14] MEDS: MoRPHine SULFATE 4 MG/ML 1 ML CARP\\VIAL IV PRN ×5 (03:57→22:36)
[2017-09-14] MEDS: HYDROCORTISONE IV 50 MG in SYRINGE 0 ML IV SCH ×3 (05:41→20:37)
[2017-09-14] MEDS: CIPROFLOXACIN 400MG / D5W IV SCH (05:41)
[2017-09-14 07:41] LABS: CREATININE 1.85 mg/dl (0.60-1.40)
[2017-09-14 07:42] LABS: BUN/CREATININE RATIO 12.4 (10-20); MAGNESIUM 1.6 mg/dl (1.8-2.4)
[2017-09-14 07:43] LABS: CALCIUM 8.3 mg/dl (8.5-10.1)
[2017-09-14] MEDS: INSULIN ASPART 100 UNITS/ML 3 ML PEN SC SCH ×5 (07:43→20:38)
[2017-09-14] MEDS ORDERED: INSULIN GLARGINE SOLOSTAR 100 UNITS/ML 3 ML PEN SC ONE (08:00)
[2017-09-14] MEDS ORDERED: MAGNESIUM SULFATE 1GM / D5W 1 GM in PREMIXED IN D5W 100 ML IV ONE (08:00)
[2017-09-14 08:12] LABS: COMPLETE YES; EOS % 0.1 %; HEMATOCRIT 35.9 % (42-52); IG% 0.3 %; LYMPH % 8.9 %; LYMPH ABS # 0.92 K/uL (1.2-3.4); MEAN CELL VOLUME 90.2 fL (80-100); MEAN CORPUSCULAR HEMOGLOBIN 30.9 pg (25-34); MEAN CORPUSCULAR HGB CONC 34.3 g/dl (32-36); MEAN PLATELET VOLUME 10.2 fL (7.4-10.4); MONO % 5.1 %; NEUT % 85.6 %; PLATELET COUNT 171 K/uL (130-400); RED BLOOD COUNT 3.98 M/uL (4.7-6.1)
[2017-09-14] MEDS ORDERED: TIOTROPIUM BROMIDE 5 PUFF/90 MCG INH INH SCH (09:00)
[2017-09-14] MEDS: RANITIDINE HCL 150 MG TAB PO SCH ×2 (09:04→20:37)
[2017-09-14] MEDS: DIPHENOXYLATE/ATROPINE 2.5/0.025MG TAB PO SCH ×3 (09:04→20:38)
[2017-09-14] MEDS: ASPIRIN 81 MG ECTAB PO SCH (09:04)
[2017-09-14] MEDS: FLUOXETINE HCL 20 MG CAP PO SCH (09:05)
--- NOTE | 2017-09-14 09:43 | Progress Note ---
Medicine Progress Note Date & Time of Visit: Sep 14, 2017 at 09:43. 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 Objective Last 8 Hrs Date Time Temp Pulse Resp B/P (MAP) Pulse Ox O2 Delivery O2 Flow Rate FiO2 09/14/17 09:35 Room Air 09/14/17 07:47 36.6 76 16 115/72 (86) 98 Room Air 09/14/17 04:16 36.3 83 17 120/74 (89) 99 Room Air 09/14/17 04:00 Room Air Physical Exam: General- oriented x 3, not in distress, speaks in sentences with no effort Head- atraumatic Eyes- EOMI, anicteric ENT- oropharynx clear Neck- supple, no JVD, no adenopathy, no thyromegaly Lungs- clear breath sounds bilaterally, no rales/wheezes Heart- regular rhythm; no murmur, normal rate Abdomen- normal bowel sounds, non distended, soft, mild tenderness on all quadrants Extremities- no pretibial edema, no calf tenderness Neuro- alert, oriented x 3; no gross focal deficits Skin- warm & dry Laboratory Results: Last 24 Hours Test 09/13/17 10:50 09/13/17 11:02 09/13/17 14:00 09/13/17 20:20 White Blood Count 12.20 K/uL Red Blood Count 5.44 M/uL Hemoglobin 17.1 g/dL Hematocrit 48.9 % Mean Corpuscular Volume 89.9 fL Mean Corpuscular Hemoglobin 31.4 pg Mean Corpuscular Hemoglobin Concent 35.0 g/dl Platelet Count 218 K/uL Mean Platelet Volume 9.9 fL Neutrophils (%) (Auto) 64.2 % Lymphocytes (%) (Auto) 24.9 % Monocytes (%) (Auto) 7.0 % Eosinophils (%) (Auto) 3.0 % Basophils (%) (Auto) 0.2 % Neutrophils # (Auto) 7.82 K/uL Lymphocytes # (Auto) 3.04 K/uL Monocytes # (Auto) 0.86 K/uL Eosinophils # (Auto) 0.36 K/uL Basophils # (Auto) 0.03 K/uL RDW Standard Deviation 50.8 fL RDW Coefficient of Variation 15.5 % Immature Granulocyte % (Auto) 0.7 % Immature Granulocyte # (Auto) 0.09 K/uL Prothrombin Time 10.3 SECONDS Prothromb Time International Ratio 1.0 Activated Partial Thromboplast Time 23.7 SECONDS Partial Thromboplastin Ratio 0.9 Sodium Level 135 mmol/L Potassium Level 4.1 mmol/L Chloride Level 105 mmol/L Carbon Dioxide Level 19 mmol/L Anion Gap 11.0 mmol/L Blood Urea Nitrogen 28 mg/dl Creatinine 2.54 mg/dl Est Creatinine Clear Calc Drug Dose 30.2 ml/min Estimated GFR () 30.2 Estimated GFR (Non- 26.0 BUN/Creatinine Ratio 11.0 Random Glucose 114 mg/dl Calcium Level 10.3 mg/dl Magnesium Level 2.0 mg/dl Total Bilirubin 0.5 mg/dl Direct Bilirubin 0.1 mg/dl Aspartate Amino Transf (AST/SGOT) 22 U/L Alanine Aminotransferase (ALT/SGPT) 35 U/L Alkaline Phosphatase 129 U/L Troponin I < 0.015 ng/ml Total Protein 8.4 gm/dl Albumin 4.0 gm/dl Lipase 200 U/L Thyroid Stimulating Hormone (TSH) 0.968 uIu/ml Bedside Lactic Acid Venous 1.57 mmol/L Urine Color YELLOW Urine Appearance CLOUDY Urine pH 5.0 Urine Specific [place] 1.018 Urine Protein NEG Urine Glucose (UA) NEG Urine Ketones NEG Urine Occult Blood NEG Urine Nitrite NEG Urine Bilirubin NEG Urine Urobilinogen NEG Urine Leukocyte Esterase SMALL Urine WBC (Auto) 5-10 /hpf Urine RBC (Auto) 5-10 /hpf Urine Hyaline Casts (Auto) >30 /lpf Urine Epithelial Cells (Auto) >30 /lpf Urine Bacteria (Auto) NEG Urine Renal Epithelial Cells 10-20 /lpf Urine Pathogenic Casts /lpf Bedside Glucose 292 mg/dl Test 09/13/17 23:51 09/14/17 06:40 09/14/17 06:48 Bedside Glucose 125 mg/dl 285 mg/dl White Blood Count 10.30 K/uL Red Blood Count 3.98 M/uL Hemoglobin 12.3 g/dL Hematocrit 35.9 % Mean Corpuscular Volume 90.2 fL Mean Corpuscular Hemoglobin 30.9 pg Mean Corpuscular Hemoglobin Concent 34.3 g/dl Platelet Count 171 K/uL Mean Platelet Volume 10.2 fL Neutrophils (%) (Auto) 85.6 % Lymphocytes (%) (Auto) 8.9 % Monocytes (%) (Auto) 5.1 % Eosinophils (%) (Auto) 0.1 % Basophils (%) (Auto) 0.0 % Neutrophils # (Auto) 8.81 K/uL Lymphocytes # (Auto) 0.92 K/uL Monocytes # (Auto) 0.53 K/uL Eosinophils # (Auto) 0.01 K/uL Basophils # (Auto) 0.00 K/uL RDW Standard Deviation 50.1 fL RDW Coefficient of Variation 15.1 % Immature Granulocyte % (Auto) 0.3 % Immature Granulocyte # (Auto) 0.03 K/uL Sodium Level 137 mmol/L Potassium Level 5.0 mmol/L Chloride Level 112 mmol/L Carbon Dioxide Level 19 mmol/L Anion Gap 6.0 mmol/L Blood Urea Nitrogen 23 mg/dl Creatinine 1.85 mg/dl Est Creatinine Clear Calc Drug Dose 41.4 ml/min Estimated GFR () 44.2 Estimated GFR (Non- 38.2 BUN/Creatinine Ratio 12.4 Random Glucose 268 mg/dl Calcium Level 8.3 mg/dl Magnesium Level 1.6 mg/dl Chemistry Specimen Hemolysis Date/Time Source Procedure Growth Status 09/13/17 11:00 Blood Blood Culture Pending Received 09/13/17 10:50 Blood Blood Culture Pending Received 09/13/17 15:53 Stool C.difficile Toxin B Gene (PCR) - Final No C. difficile toxin B gene detected Complete 09/13/17 15:53 Stool Shiga Toxin Test Pending Received 09/13/17 15:53 Stool Stool Culture Pending Received 09/13/17 14:00 Urine , Clean Catch Urine Culture Pending Received Assessment & Plan 62 year old male with history of Ulcerative Colitis, Adrenal Insufficiency, CAD , DM, HTN, presenting with diarrhea and weakness x 5 days. DIARRHEA WITH ABDOMINAL PAIN LIKELY ULCERATIVE COLITIS FLARE R/O INFECTIOUS DIARRHEA - stool cultures: pending stool for C diff Ag: negative - diarrhea slowing down, still has some tenderness - continue Cipro + Metro Day 2 Hydrocortisone 50mg QID--> taper to q8h--> taper slowly then resume usual Hydrocortisone PO TID continue IV fluids clear liquids--> advance to soft, dairy free - consulted GI, awaiting further recommendations ACUTE RENAL FAILURE - likely pre renal from GI losses - IV NSS crea improving 2.5--> 1.8 - hold Lisinopril renally dose medications BORDERLINE HYPOTENSION ADRENAL INSUFFICIENCY - BP improving - hold Imdur, Lisinopril - IV fluids given stress dose Hydrocortisone 50mg QID--> taper to q8h--> taper slowly then resume usual Hydrocortisone PO TID monitor CAD - continue Aspirin hold Imdur, Simvastatin, Lisinopril for low BP and diarrhea DM - hold Lantus and Aspart - ISS for now Pharmacy Glycemic Control SVC consulted, appreciate the recommendations DVT PROPHYLAXIS SCDs Lovenox contraindicated as patient having Colitis, high risk for bleeding encourage ambulation FULL CODE Disposition pending anticipate d/c home when medically stable PCP Dr. Riley Keith Current Inpatient Medications: Current Inpatient Medications Medications (Trade) Dose Ordered Sig/Tisha Route Start Time Stop Time Status Last Admin Dose Admin Hydrocortisone Sodium Succinate 50 mg/Syringe 1 ml @ 4 mls/min Q6H IV 09/13/17 18:00 10/13/17 17:59 09/14/17 05:41 4 MLS/MIN Miscellaneous Information (Consult Glycemic Management Pharmacy) 1 ea UD PRN N/A 09/13/17 18:30 10/13/17 18:29 Ciprofloxacin (Consult) 1 ea UD PRN N/A 09/13/17 17:30 10/13/17 17:29 Sodium Chloride 1,000 ml @ 125 mls/hr Q8H IV 09/13/17 18:00 10/13/17 17:59 09/14/17 03:56 125 MLS/HR Insulin Aspart (novoLOG ASPART) SLIDING SCALE If C... ACHS SC 09/13/17 21:00 10/13/17 20:59 09/14/17 08:06 7 UNITS Glucose (Glucose 40% Gel) 15-30 GRAMS 15 GRAMS... UD PRN PO 09/13/17 16:15 10/13/17 16:14 Glucose (Glucose Chew Tab) 4-8 Tablets 4 Tabl... UD PRN PO 09/13/17 16:15 10/13/17 16:14 Dextrose (Dextrose 50% 50ML Syringe) 25-50ML OF 50% DW IV FOR... UD PRN IV 09/13/17 16:15 10/13/17 16:14 Glucagon (Glucagon Inj) 1 mg UD PRN SQ 09/13/17 16:15 10/13/17 16:14 Acetaminophen (Tylenol Tab) 650 mg Q4H PRN PO 09/13/17 16:30 10/13/17 16:29 09/14/17 08:12 650 MG Ondansetron HCl (Zofran Inj) 4 mg Q6H PRN IV 09/13/17 16:30 10/13/17 16:29 09/13/17 17:29 4 MG Alprazolam (Xanax Tab) 0.5 mg HS PRN PO 09/13/17 16:30 10/13/17 16:29 Aspirin (Ecotrin Tab) 81 mg QAM PO 09/14/17 09:00 10/14/17 08:59 09/14/17 09:04 81 MG Diphenoxylate HCl/ Atropine (Lomotil Tab) 2 tab TID PO 09/13/17 21:00 10/13/17 20:59 09/14/17 09:04 2 TAB Fluoxetine HCl (Prozac Cap) 20 mg QAM PO 09/14/17 09:00 10/14/17 08:59 09/14/17 09:05 20 MG Hydroxyzine HCl (Vistaril Tab) 12.5 mg HS PRN PO 09/13/17 16:30 10/13/17 16:29 Mirtazapine (Remeron Tab) 30 mg HS PRN PO 09/13/17 16:30 10/13/17 16:29 Ranitidine HCl (zANTac TAB) 150 mg BID PO 09/13/17 21:00 10/13/17 20:59 09/14/17 09:04 150 MG Cholestyramine Resin (Questran Powder Light) 4 gm BID@1000,2200 PO 09/13/17 22:00 10/13/17 21:59 09/13/17 21:04 4 GM Miscellaneous Information (Order Awaiting Action) 1 ea QS N/A 09/14/17 00:00 10/14/17 00:00 Morphine Sulfate (MoRPHine SULFATE INJ) 4 mg Q4H PRN IV 09/13/17 17:00 09/27/17 16:59 09/14/17 08:10 4 MG Metronidazole (Consult) 1 ea UD PRN N/A 09/13/17 17:30 10/13/17 17:29 Ciprofloxacin/ Dextrose 400 mg/ Prmx 200 ml @ 100 mls/hr Q12@06,18 IV 09/13/17 18:00 09/23/17 17:59 09/14/17 05:41 100 MLS/HR Metronidazole 500 mg/Prmx 100 ml @ 100 mls/hr Q8H IV 09/13/17 20:00 09/23/17 19:59 09/14/17 03:56 100 MLS/HR Tiotropium [place] (Spiriva Handihaler Inhaler) 1 puff DAILY INH 09/15/17 09:00 10/15/17 08:59
--- NOTE | 2017-09-14 10:06 | Pharmacy Progress Note ---
Glycemic Control Intl Consult Date of Service Sep 14, 2017. Scope Glycemic Pharmacist consulted by Dr Rider on 09/13/17 for glycemic control and to write orders per [facility] inpatient glycemic control protocol. Objective Weight (Kilograms): 78.100 Accuchecks BSG (last 24hrs): Test 09/13/17 10:50 09/13/17 20:20 09/13/17 23:51 09/14/17 06:40 Random Glucose 114 mg/dl (70-99) 268 mg/dl (70-99) Bedside Glucose 292 mg/dl (70-99) 125 mg/dl (70-99) Test 09/14/17 06:48 Bedside Glucose 285 mg/dl (70-99) Laboratory Data (last 24hrs) Test 09/13/17 10:50 09/14/17 06:40 Anion Gap 11.0 mmol/L 6.0 mmol/L BUN/Creatinine Ratio 11.0 12.4 Blood Urea Nitrogen 28 mg/dl 23 mg/dl Creatinine 2.54 mg/dl 1.85 mg/dl Potassium Level 4.1 mmol/L 5.0 mmol/L Sodium Level 135 mmol/L 137 mmol/L White Blood Count 12.20 K/uL 10.30 K/uL Red Blood Count 5.44 M/uL 3.98 M/uL Hemoglobin 17.1 g/dL 12.3 g/dL Hematocrit 48.9 % 35.9 % Mean Corpuscular Volume 89.9 fL 90.2 fL Mean Corpuscular Hemoglobin 31.4 pg 30.9 pg Mean Corpuscular Hemoglobin Concent 35.0 g/dl 34.3 g/dl Platelet Count 218 K/uL 171 K/uL Mean Platelet Volume 9.9 fL 10.2 fL Neutrophils (%) (Auto) 64.2 % 85.6 % Lymphocytes (%) (Auto) 24.9 % 8.9 % Monocytes (%) (Auto) 7.0 % 5.1 % Eosinophils (%) (Auto) 3.0 % 0.1 % Basophils (%) (Auto) 0.2 % 0.0 % Neutrophils # (Auto) 7.82 K/uL 8.81 K/uL Lymphocytes # (Auto) 3.04 K/uL 0.92 K/uL Monocytes # (Auto) 0.86 K/uL 0.53 K/uL Eosinophils # (Auto) 0.36 K/uL 0.01 K/uL Basophils # (Auto) 0.03 K/uL 0.00 K/uL Recent Pertinent Medications Outpatient Anti-diabetic Regimen: * Lantus 10-20 units daily as directed * Humalog SSI * Cortef 25mg QAM, 10mg QPM (chronic therapy) * A1c = 7.6 % (05/24/17) Risk Factors for Insulin Resistance: * Steroids: HC 100mg IV x1, then 50mg IV q6h * Infection: Cipro/Flagyl IV -- for colitis flare * IVF: NSS @ 125mL/hr * Diet: Type 2 diabetic, clear liquids Assessment & Plan ASSESSMENT: * Patient is a 62yo diabetic male admitted for colitis flare. * Patient is on chronic steroid therapy for Cushings syndrome (Cortef PO). * BSGs have been elevated since admission, likely d/t IV Hydrocortisone. PLAN FOR INPATIENT GLYCEMIC CONTROL: * Basal insulin with LANTUS 5 units SQ BID * Correctional Insulin with NOVOLOG per scale ACHS or Q6hrs while NPO * Goal Range: Low 110 mg/dL - High 140 mg/dL * Correction Factor: 25 mg/dL/unit * Nutritional / Prandial insulin per carb ratio of 1 unit per 8 grams CHO consumed * Please note that the plan above was derived based on current level of insulin resistance and hospital stress. These recommendations are appropriate for inpatient admission only. Plan of care upon discharge will need to be reassessed to avoid potential outpatient hypo/hyperglycemia. Thank you.
--- NOTE | 2017-09-14 10:16 | Gastrointestinal Consultation ---
Gastrointestinal Consultation Date of Consultation: Sep 14, 2017 Attending Physician: Tereso Consulting Physician: Art Reason for Consultation: diarrhea History of Present Illness Patient is a 62 year old male very well known to our service (followed by Dr. Keith) who presented to ED w/ hypotension, fatigue, weakness and worsening diarrhea - GI was consulted for additional management. He was admitted in June with similar complaints. He has a history of chronic diarrhea likely multifactorial w/ microscopic colitis, diabetes causing poor sphincter control, ETOH use, recurrent c.diff and pancreatic insufficiency. There is question of a diagnosis of ulcerative colitis, diagnosis has not been confirmed. Had stool fat and volume check which showed large amt of stool w fat content. Outpatient meds Clonidine 0.05mg BID, Questran 4g BID, Lomotil 2 tabs TID, Amitritylline 25mg qHS, Pepto Bismol 30ml QID, Entecort 9mg daily for his diarrhe Pt was evaluated this AM with Dr. Cordova. He reports resolution of his acute flare of diarrhea and abdominal pain. He notes that since admission, he has had three stools. No black/bloody stools. Abdominal pain is localized in bilateral lower quadrants, but worse in LLQ and is now back down to baseline. No upper GI concerns. No nausea, vomiting. He denies any fever, chills, CP, SOB. He is on clear liquid diet, with plan to advance today. Pt is afebrile w/ stable VS, on admission he was hypotensive. CRISTIAN likely secondary to GI loss, labs improving. Technology Support Analyst on admission was 2.5, repeat this AM was 1.8, baseline is 1.1 CT ABD/Pelvis: No evidence of bowel obstruction. No evidence of free air No renal, ureteral, or bladder calculi identified No acute inflammatory changes Colonoscopy 02/19/17: erythematous and granular mucosa in the entire colon Past Medical/Surgical History Medical Problems: (1) Colitis Status: Acute (2) Diarrhea Status: Acute (3) Failure of outpatient treatment Status: Acute (4) Hypotension Status: Acute (5) Hypotension Status: Acute (6) Left sided abdominal pain Status: Acute (7) Pyelonephritis Status: Acute (8) Renal failure, acute Status: Acute (9) Sepsis Status: Acute (10) Sepsis Status: Acute Past Medical History: collagenous colitis HTN, COPD, hyperlipidemia, depression, anxiety , microscopic colitis, chronic diarrhea, chronica abdominal pain, adrenal insufficiency, ?ulcerative colitis, pyelonephritis, CAD, recurrent c.diff Past Surgical History: Coronary stenting, Colonoscopy 02/19/17 Dr. Deal for chronic diarrhea: erythematous and granular mucosa in the entire colon. Sigmoid diverticulosis., EGD Dr. Keith 12/31/16: normal. Family History Diabetes mellitus FATHER MOTHER Social History Smoking Status: Current Every Day Smoker Alcohol Use: occasionally Drug Use: none Marital Status: Housing Status: lives with family Occupation Status: employed Allergies Coded Allergies: Azathioprine (Verified Adverse Reaction, Unknown, RENAL COMPLICATIONS, 06/25) Current Medications Home Meds and Scripts Medications Dose Route/Sig Max Daily Dose Days Date Category Dose Instructions Cortef (Hydrocortisone) 10 Mg Tab 10 Mg PO HS 09/13/17 Reported Cortef (Hydrocortisone) 10 Mg Tab 10 Mg PO QDL 09/13/17 Reported Cortef (Hydrocortisone) 10 Mg Tab 25 Mg PO QAM 09/13/17 Reported Diphenoxylate/Atropine 2.5-0.025 mg (Diphenoxylate HCl/Atropine) 1 Tab Tab 2 Tab PO TID 30 07/02/17 Rx Questran (Cholestyramine) 4 Gm Pow 4 Gm PO BID 30 07/02/17 Rx mix with liquid Remeron (Mirtazapine) 30 Mg Tab 1 Tab PO HS PRN 30 06/25/17 Reported Atarax (Hydroxyzine Hcl) 50 Mg Tab 50 Mg PO HS PRN 06/25/17 Reported Proventil 0.083% 2.5MG/3ML (Albuterol Sulf) 2.5 Mg/3 Ml Nebu 2.5 Mg INH QID PRN 05/21/17 Reported Fluoxetine HCl 20 Mg Cap 20 Mg PO QAM 05/21/17 Reported Humalog (Insulin Lispro (Human)) 100 Unit/Ml Inj SC ACHS 05/03/17 Reported SLIDING SCALE, MAX UNITS DAILY, 40 UNITS Ventolin Hfa (Albuterol) 200 Puffs/05654 Mcg Aers 3-4 Puffs INH QID PRN 04/22/17 Rx Duoneb (Ipratropium-Albuterol) 3 Ml Nebu 1 Treatment INH QID PRN 04/22/17 Rx Spiriva Handihaler (Tiotropium [place]) 30 Puff/540 Mcg Aerp 1 Cap INH DAILY 04/20/17 Reported Lantus (Insulin Glargine) 100 Unit/Ml Inj 10-20 Units SC UD 04/20/17 Reported USE DIRECTED Breo Ellipta (Fluticasone Furoate-Vilanterol) 1 Inh Inh 1 Inha PO DAILY 02/19/17 Reported Lipitor (Atorvastatin Calcium) 80 Mg Tab 1 Tab PO DAILY 30 02/19/17 Reported Dexamethasone Sodium Phos (Dexamethasone Sod Phos) 4 Mg/Ml Inj 1 Ml IM DIRECTED PRN 02/19/17 Reported Xanax (Alprazolam) 0.5 Mg Tab 0.5 Mg PO HS PRN 04/08/16 Reported Zestril (Lisinopril) 5 Mg Tab 5 Mg PO QAM 04/08/16 Reported Imdur Ext Rel (Isosorbide Mononitrate) 60 Mg Ertab 60 Mg PO QAM 04/08/16 Reported Aspirin Chewable (Aspirin) 81 Mg Chew 81 Mg PO QAM 04/08/16 Reported Zantac (Ranitidine HCl) 150 Mg Tab 150 Mg PO BID 04/08/16 Reported Review of Systems Constitutional: No fever, No chills Respiratory: No cough Cardiac: No chest pain Abdomen: + pain (back to baseline), + diarrhea (back to baseline), No nausea, No vomiting, No constipation, No GI bleeding Physical Exam Date Time Temp Pulse Resp B/P (MAP) Pulse Ox O2 Delivery O2 Flow Rate FiO2 09/14/17 09:35 Room Air 09/14/17 07:47 36.6 76 16 115/72 (86) 98 Room Air 09/14/17 04:16 36.3 83 17 120/74 (89) 99 Room Air 09/14/17 04:00 Room Air 09/14/17 00:05 Room Air 09/13/17 23:28 36.4 75 18 112/62 (79) 98 Room Air 09/13/17 19:56 Room Air 09/13/17 18:58 36.5 75 18 113/75 (88) 100 Room Air 09/13/17 18:03 36.5 84 18 108/73 (85) 96 Room Air 09/13/17 16:46 84 18 124/70 95 Room Air 09/13/17 16:22 83 94 Room Air 09/13/17 16:05 93/59 09/13/17 15:26 Room Air 09/13/17 14:09 82 18 90/56 96 Room Air 09/13/17 14:03 84 09/13/17 12:45 75 20 89/61 98 Room Air 09/13/17 11:40 76 20 99/67 98 Room Air 09/13/17 11:12 83 09/13/17 10:53 98 Room Air 09/13/17 10:15 36.5 108 16 89/61 100 Room Air General Appearance: no apparent distress (has just finished clears) Eyes: PERRL Respiratory/Chest: lungs clear, normal breath sounds Cardiovascular: regular rate, rhythm, no edema Abdomen: normal bowel sounds, non tender, soft, no organomegaly Neurologic/Psych: alert, normal mood/affect, oriented x 3 Skin: normal color, no jaundice Laboratory Results Last 24 Hours Test 09/13/17 10:50 09/13/17 11:02 09/13/17 14:00 09/13/17 20:20 White Blood Count 12.20 K/uL Red Blood Count 5.44 M/uL Hemoglobin 17.1 g/dL Hematocrit 48.9 % Mean Corpuscular Volume 89.9 fL Mean Corpuscular Hemoglobin 31.4 pg Mean Corpuscular Hemoglobin Concent 35.0 g/dl Platelet Count 218 K/uL Mean Platelet Volume 9.9 fL Neutrophils (%) (Auto) 64.2 % Lymphocytes (%) (Auto) 24.9 % Monocytes (%) (Auto) 7.0 % Eosinophils (%) (Auto) 3.0 % Basophils (%) (Auto) 0.2 % Neutrophils # (Auto) 7.82 K/uL Lymphocytes # (Auto) 3.04 K/uL Monocytes # (Auto) 0.86 K/uL Eosinophils # (Auto) 0.36 K/uL Basophils # (Auto) 0.03 K/uL RDW Standard Deviation 50.8 fL RDW Coefficient of Variation 15.5 % Immature Granulocyte % (Auto) 0.7 % Immature Granulocyte # (Auto) 0.09 K/uL Prothrombin Time 10.3 SECONDS Prothromb Time International Ratio 1.0 Activated Partial Thromboplast Time 23.7 SECONDS Partial Thromboplastin Ratio 0.9 Sodium Level 135 mmol/L Potassium Level 4.1 mmol/L Chloride Level 105 mmol/L Carbon Dioxide Level 19 mmol/L Anion Gap 11.0 mmol/L Blood Urea Nitrogen 28 mg/dl Creatinine 2.54 mg/dl Est Creatinine Clear Calc Drug Dose 30.2 ml/min Estimated GFR () 30.2 Estimated GFR (Non- 26.0 BUN/Creatinine Ratio 11.0 Random Glucose 114 mg/dl Calcium Level 10.3 mg/dl Magnesium Level 2.0 mg/dl Total Bilirubin 0.5 mg/dl Direct Bilirubin 0.1 mg/dl Aspartate Amino Transf (AST/SGOT) 22 U/L Alanine Aminotransferase (ALT/SGPT) 35 U/L Alkaline Phosphatase 129 U/L Troponin I < 0.015 ng/ml Total Protein 8.4 gm/dl Albumin 4.0 gm/dl Lipase 200 U/L Thyroid Stimulating Hormone (TSH) 0.968 uIu/ml Bedside Lactic Acid Venous 1.57 mmol/L Urine Color YELLOW Urine Appearance CLOUDY Urine pH 5.0 Urine Specific [place] 1.018 Urine Protein NEG Urine Glucose (UA) NEG Urine Ketones NEG Urine Occult Blood NEG Urine Nitrite NEG Urine Bilirubin NEG Urine Urobilinogen NEG Urine Leukocyte Esterase SMALL Urine WBC (Auto) 5-10 /hpf Urine RBC (Auto) 5-10 /hpf Urine Hyaline Casts (Auto) >30 /lpf Urine Epithelial Cells (Auto) >30 /lpf Urine Bacteria (Auto) NEG Urine Renal Epithelial Cells 10-20 /lpf Urine Pathogenic Casts /lpf Bedside Glucose 292 mg/dl Test 09/13/17 23:51 09/14/17 06:40 09/14/17 06:48 Bedside Glucose 125 mg/dl 285 mg/dl White Blood Count 10.30 K/uL Red Blood Count 3.98 M/uL Hemoglobin 12.3 g/dL Hematocrit 35.9 % Mean Corpuscular Volume 90.2 fL Mean Corpuscular Hemoglobin 30.9 pg Mean Corpuscular Hemoglobin Concent 34.3 g/dl Platelet Count 171 K/uL Mean Platelet Volume 10.2 fL Neutrophils (%) (Auto) 85.6 % Lymphocytes (%) (Auto) 8.9 % Monocytes (%) (Auto) 5.1 % Eosinophils (%) (Auto) 0.1 % Basophils (%) (Auto) 0.0 % Neutrophils # (Auto) 8.81 K/uL Lymphocytes # (Auto) 0.92 K/uL Monocytes # (Auto) 0.53 K/uL Eosinophils # (Auto) 0.01 K/uL Basophils # (Auto) 0.00 K/uL RDW Standard Deviation 50.1 fL RDW Coefficient of Variation 15.1 % Immature Granulocyte % (Auto) 0.3 % Immature Granulocyte # (Auto) 0.03 K/uL Sodium Level 137 mmol/L Potassium Level 5.0 mmol/L Chloride Level 112 mmol/L Carbon Dioxide Level 19 mmol/L Anion Gap 6.0 mmol/L Blood Urea Nitrogen 23 mg/dl Creatinine 1.85 mg/dl Est Creatinine Clear Calc Drug Dose 41.4 ml/min Estimated GFR () 44.2 Estimated GFR (Non- 38.2 BUN/Creatinine Ratio 12.4 Random Glucose 268 mg/dl Calcium Level 8.3 mg/dl Magnesium Level 1.6 mg/dl Chemistry Specimen Hemolysis Impression Patient is a 62 year old male admitted for hypotension, CRISTIAN, electrolye imbalance and acute on chronic diarrhea. He has chronic diarrhea which is suspected to be multifactorial: microscopic colitis, DM, pancreatic insufficiency ? remote suspicion of possible UC. Stool for c.diff and culture are pending. He was started on cipro/flagyl at time of admission. He notes that since admission, his abdominal pain is back down to baseline, and his bowels are almost at baseline as well (5 non-bloody stools since admission) Plan - Please taper off IV hydrocortisone and resume outpatient dosing for adrenal insufficiency - Ok to hold cipro/flagyl - there has been question of IBD but diagnosis unclear - Follow up stool culture - C.diff negative - Continue pancreas enzymes - Questran 4g BID - Lomotil 2g TID - Clonidine 0.05mg BID - Amitriptyline 25mg QHS. - Monitor electrolytes and correction per primary team. I saw and evaluated the patient. He has a long history of microscopic colitis and suspected chronic pancreatitis from alcohol abuse. He was admitted with several days of diarrhea resulting in dehydration. Physical examination No obvious distress No abdominal tenderness Recommendations Taper off IV hydrocortisone Continue outpatient desonide Questran 4 g twice daily Lomotil 2 g 3 times daily Clonidine 0.5 g twice daily
[2017-09-14] MEDS: CHOLESTYRAMINE LIGHT 4 GM PKT PO SCH ×2 (11:25→21:54)
[2017-09-14] MEDS ORDERED: ALUMINUM/MAGNESIUM SUSP 30 ML UDC PO STA (23:27)
[2017-09-15] VITALS (12 sets, daily range): BP systolic 129–159; BP diastolic 78–98; PULSE 48–82; TEMP 36.6–36.9; O2SAT 97–100
[2017-09-15] MEDS: SODIUM CHLORIDE 0.9% 1000ML 1,000 ML IV SCH ×2 (02:10→10:38)
[2017-09-15 06:24] LABS: BASO % 0.1 %; BASO ABS # 0.01 K/uL (0-0.2); COMPLETE YES; EOS % 0.1 %; IG% 0.4 %; LYMPH % 13.7 %; LYMPH ABS # 1.44 K/uL (1.2-3.4); MEAN CELL VOLUME 88.9 fL (80-100); MEAN CORPUSCULAR HEMOGLOBIN 29.6 pg (25-34); MEAN CORPUSCULAR HGB CONC 33.3 g/dl (32-36); MEAN PLATELET VOLUME 9.9 fL (7.4-10.4); MONO % 8.2 %; NEUT % 77.5 %; PLATELET COUNT 142 K/uL (130-400); RED BLOOD COUNT 3.71 M/uL (4.7-6.1); WHITE BLOOD COUNT 10.54 K/uL (4.8-10.8)
[2017-09-15] MEDS: HYDROCORTISONE IV 50 MG in SYRINGE 0 ML IV SCH ×2 (06:35→17:56)
[2017-09-15 07:04] LABS: BUN/CREATININE RATIO 12.6 (10-20); CALCIUM 7.7 mg/dl (8.5-10.1); CREATININE 1.47 mg/dl (0.60-1.40); MAGNESIUM 1.9 mg/dl (1.8-2.4); POTASSIUM 4.2 mmol/L (3.5-5.1)
--- NOTE | 2017-09-15 08:04 | Progress Note ---
Internal Med Progress Note Date of Service: Sep 15, 2017. Provider Documentation: SUBJECTIVE: Seen and examined at bedside States feeling much better Abd pain is controlled Reports chronic diarrhea Denies Nausea, vomiting, dizziness, chest pain, SOB No other complaints OBJECTIVE: Vital Signs-as noted below Physical Exam: General Appearance:Moderately built and nourished, no apparent distress Head: normocephalic, Atraumatic Eyes: normal inspection, EOMI, PERRL Neck: supple, Trachea midline Respiratory/Chest: Normal breath sounds, CTA Cardiovascular: S1, S2, No murmur Abdomen/GI:Soft, mild tender generalized, Bowel sounds present Extremities/Musculoskelatal:normal inspection, no edema Neurologic/Psych:AAOX3, grossly no focal neurological deficits Skin: normal color, warm Lab data as noted below. ASSESSMENT & PLAN: Patient is a 62 yr male with history of Microscopic Colitis, possible Ulcerative Colitis, Adrenal Insufficiency, CAD, DM, HTN presenting with diarrhea and weakness x 5 days. DIARRHEA WITH ABDOMINAL PAIN H/O chronic diarrhea: Likely Multifactorial Microscopic colitis, DM II, pancreatic insufficiency, possible UC flare stool studies; negative stool for C diff: negative Discontinue Cipro and flagyl Plan to taper Hydrocortisone 50mg QID--> taper to q8h--> BID >>>taper slowly then resume usual Hydrocortisone PO TID continue IV fluids Advance diet as tolerated Appreciate GI Input Continue pancreas enzymes, Questran 4g BID, Lomotil 2g TID, Amitriptyline 25mg QHS (Home med) ACUTE RENAL FAILURE likely pre renal from GI losses Continue IV NSS Cr 2.5 >>>1.8>>>1.47 hold Lisinopril renally dose medications BORDERLINE HYPOTENSION ADRENAL INSUFFICIENCY BP improving hold Imdur, Lisinopril On IV fluids Stress dose Hydrocortisone 50mg QID >>> taper to q8h >>> BID >>>taper slowly then resume usual Hydrocortisone PO TID monitor CAD continue Aspirin hold Imdur, Simvastatin, Lisinopril for low BP and diarrhea DM hold Lantus and Aspart ISS for now Pharmacy Glycemic Control, appreciate the recommendations DVT Px SCDs Lovenox contraindicated as patient having Colitis, high risk for bleeding encourage ambulation Code Status: FULL CODE Disposition Anticipate d/c home when medically stable PCP Dr. Lin GI Dr. Keith Vital Signs: Date Time Temp Pulse Resp B/P (MAP) Pulse Ox O2 Delivery O2 Flow Rate FiO2 09/15/17 16:26 36.6 48 16 159/98 (118) 99 Room Air 09/15/17 15:12 36.9 61 18 140/81 (100) 98 Room Air 09/15/17 12:50 100 Room Air 09/15/17 12:46 36.7 58 16 148/84 (105) 100 Room Air 09/15/17 12:00 Room Air 09/15/17 10:24 99 Room Air 09/15/17 08:00 Room Air 09/15/17 07:50 36.8 59 18 151/80 (103) 99 Room Air 09/15/17 04:00 98 Room Air 09/15/17 04:00 36.6 82 135/81 (99) 98 Room Air 09/15/17 00:07 36.6 65 18 129/78 (95) 98 Room Air 09/15/17 00:00 98 Room Air 09/14/17 20:00 98 Room Air 09/14/17 19:25 36.6 72 18 131/74 (93) 99 Room Air Lab Results: Results Past 24 Hours Test 09/14/17 20:16 09/15/17 05:58 09/15/17 07:17 09/15/17 11:09 Range/Units Bedside Glucose 116 102 143 70-99 mg/dl White Blood Count 10.54 4.8-10.8 K/uL Red Blood Count 3.71 4.7-6.1 M/uL Hemoglobin 11.0 14.0-18.0 g/dL Hematocrit 33.0 42-52 % Mean Corpuscular Volume 88.9 80-100 fL Mean Corpuscular Hemoglobin 29.6 25-34 pg Mean Corpuscular Hemoglobin Concent 33.3 32-36 g/dl Platelet Count 142 130-400 K/uL Mean Platelet Volume 9.9 7.4-10.4 fL Neutrophils (%) (Auto) 77.5 % Lymphocytes (%) (Auto) 13.7 % Monocytes (%) (Auto) 8.2 % Eosinophils (%) (Auto) 0.1 % Basophils (%) (Auto) 0.1 % Neutrophils # (Auto) 8.18 1.4-6.5 K/uL Lymphocytes # (Auto) 1.44 1.2-3.4 K/uL Monocytes # (Auto) 0.86 0.11-0.59 K/uL Eosinophils # (Auto) 0.01 0-0.5 K/uL Basophils # (Auto) 0.01 0-0.2 K/uL RDW Standard Deviation 49.6 36.4-46.3 fL RDW Coefficient of Variation 15.3 11.5-14.5 % Immature Granulocyte % (Auto) 0.4 % Immature Granulocyte # (Auto) 0.04 0.00-0.02 K/uL Sodium Level 144 136-145 mmol/L Potassium Level 4.2 3.5-5.1 mmol/L Chloride Level 118 98-107 mmol/L Carbon Dioxide Level 20 21-32 mmol/L Anion Gap 6.0 3-11 mmol/L Blood Urea Nitrogen 19 7-18 mg/dl Creatinine 1.47 0.60-1.40 mg/dl Est Creatinine Clear Calc Drug Dose 52.1 ml/min Estimated GFR () 58.4 Estimated GFR (Non- 50.4 BUN/Creatinine Ratio 12.6 10-20 Random Glucose 129 70-99 mg/dl Calcium Level 7.7 8.5-10.1 mg/dl Magnesium Level 1.9 1.8-2.4 mg/dl Test 09/15/17 13:15 09/15/17 16:07 Range/Units Bedside Glucose 159 145 70-99 mg/dl
[2017-09-15] MEDS: TIOTROPIUM BROMIDE 5 PUFF/90 MCG INH INH SCH (08:19)
[2017-09-15] MEDS: ASPIRIN 81 MG ECTAB PO SCH (08:20)
[2017-09-15] MEDS: RANITIDINE HCL 150 MG TAB PO SCH ×2 (08:20→19:57)
[2017-09-15] MEDS: DIPHENOXYLATE/ATROPINE 2.5/0.025MG TAB PO SCH ×3 (08:21→19:58)
[2017-09-15] MEDS: FLUOXETINE HCL 20 MG CAP PO SCH (08:21)
[2017-09-15] MEDS: INSULIN ASPART 100 UNITS/ML 3 ML PEN SC SCH ×4 (08:26→21:00)
--- NOTE | 2017-09-15 09:04 | Gastroenterology Progress Note ---
Progress Note Date of Service: Sep 15, 2017 Subjective Pt evaluation today including: conversation w/ patient, physical exam, chart review Pt seen and examined, chart reviewed. There is question of which outpatient medications he is taking - he is unsure but will have his bring in a list for medication rec. He has no new complaints this AM. He reports improvement of his abdominal pain and his stools. No black or bloody stools. No fever, chills, CP, SOB. Review of Systems Constitutional: No fever, No chills Respiratory: No cough, No shortness of breath Cardiac: No chest pain, No edema Abdomen: + pain, + diarrhea, No nausea, No vomiting, No constipation, No GI bleeding Medications Current Inpatient Medications Medications (Trade) Dose Ordered Sig/Tisha Route Start Time Stop Time Status Last Admin Dose Admin Miscellaneous Information (Consult Glycemic Management Pharmacy) 1 ea UD PRN N/A 09/13/17 18:30 10/13/17 18:29 Sodium Chloride 1,000 ml @ 75 mls/hr [id number] IV 09/13/17 18:00 10/13/17 17:59 09/15/17 02:10 125 MLS/HR Insulin Aspart (novoLOG ASPART) SLIDING SCALE If C... ACHS SC 09/13/17 21:00 10/13/17 20:59 09/15/17 08:26 5 UNITS Glucose (Glucose 40% Gel) 15-30 GRAMS 15 GRAMS... UD PRN PO 09/13/17 16:15 10/13/17 16:14 Glucose (Glucose Chew Tab) 4-8 Tablets 4 Tabl... UD PRN PO 09/13/17 16:15 10/13/17 16:14 Dextrose (Dextrose 50% 50ML Syringe) 25-50ML OF 50% DW IV FOR... UD PRN IV 09/13/17 16:15 10/13/17 16:14 Glucagon (Glucagon Inj) 1 mg UD PRN SQ 09/13/17 16:15 10/13/17 16:14 Acetaminophen (Tylenol Tab) 650 mg Q4H PRN PO 09/13/17 16:30 10/13/17 16:29 09/14/17 08:12 650 MG Ondansetron HCl (Zofran Inj) 4 mg Q6H PRN IV 09/13/17 16:30 10/13/17 16:29 09/13/17 17:29 4 MG Alprazolam (Xanax Tab) 0.5 mg HS PRN PO 09/13/17 16:30 10/13/17 16:29 Aspirin (Ecotrin Tab) 81 mg QAM PO 09/14/17 09:00 10/14/17 08:59 09/15/17 08:20 81 MG Diphenoxylate HCl/ Atropine (Lomotil Tab) 2 tab TID PO 09/13/17 21:00 10/13/17 20:59 09/15/17 08:21 2 TAB Fluoxetine HCl (Prozac Cap) 20 mg QAM PO 09/14/17 09:00 10/14/17 08:59 09/15/17 08:21 20 MG Hydroxyzine HCl (Vistaril Tab) 12.5 mg HS PRN PO 09/13/17 16:30 10/13/17 16:29 Mirtazapine (Remeron Tab) 30 mg HS PRN PO 09/13/17 16:30 10/13/17 16:29 Ranitidine HCl (zANTac TAB) 150 mg BID PO 09/13/17 21:00 10/13/17 20:59 09/15/17 08:20 150 MG Cholestyramine Resin (Questran Powder Light) 4 gm BID@1000,2200 PO 09/13/17 22:00 10/13/17 21:59 09/14/17 21:54 4 GM Miscellaneous Information (Order Awaiting Action) 1 ea QS N/A 09/14/17 00:00 10/14/17 00:00 Morphine Sulfate (MoRPHine SULFATE INJ) 4 mg Q4H PRN IV 09/13/17 17:00 09/27/17 16:59 09/14/17 22:36 4 MG Tiotropium [place] (Spiriva Handihaler Inhaler) 1 puff DAILY INH 09/15/17 09:00 10/15/17 08:59 09/15/17 08:19 1 PUFF Hydrocortisone Sodium Succinate 50 mg/Syringe 1 ml @ 4 mls/min Q12H IV 09/15/17 18:00 10/15/17 17:59 Insulin Glargine (Lantus Solostar Pen) 5 units QAM SC 09/15/17 09:00 10/15/17 08:59 Amitriptyline HCl (Elavil Tab) 25 mg HS PO 09/15/17 21:00 10/15/17 20:59 Objective Vital Signs Date Time Temp Pulse Resp B/P (MAP) Pulse Ox O2 Delivery O2 Flow Rate FiO2 09/15/17 07:50 36.8 59 18 151/80 (103) 99 Room Air 09/15/17 04:00 98 Room Air 09/15/17 04:00 36.6 82 135/81 (99) 98 Room Air 09/15/17 00:07 36.6 65 18 129/78 (95) 98 Room Air 09/15/17 00:00 98 Room Air 09/14/17 20:00 98 Room Air 09/14/17 19:25 36.6 72 18 131/74 (93) 99 Room Air 09/14/17 16:26 36.5 62 16 133/84 (100) 100 09/14/17 16:00 100 Room Air 09/14/17 12:00 Room Air 09/14/17 10:55 36.5 82 16 136/86 (103) 100 Room Air 09/14/17 09:35 Room Air Physical Exam General Appearance: no apparent distress Eyes: PERRL ENT: hearing grossly normal Neck: supple Respiratory/Chest: lungs clear, normal breath sounds Cardiovascular: regular rate, rhythm Abdomen: normal bowel sounds, non tender, soft, no organomegaly Neurologic/Psych: alert, normal mood/affect, oriented x 3 Skin: normal color Laboratory Results Last 24 Hours Test 09/14/17 11:25 09/14/17 16:09 09/14/17 20:16 09/15/17 05:58 Bedside Glucose 76 mg/dl 175 mg/dl 116 mg/dl White Blood Count 10.54 K/uL Red Blood Count 3.71 M/uL Hemoglobin 11.0 g/dL Hematocrit 33.0 % Mean Corpuscular Volume 88.9 fL Mean Corpuscular Hemoglobin 29.6 pg Mean Corpuscular Hemoglobin Concent 33.3 g/dl Platelet Count 142 K/uL Mean Platelet Volume 9.9 fL Neutrophils (%) (Auto) 77.5 % Lymphocytes (%) (Auto) 13.7 % Monocytes (%) (Auto) 8.2 % Eosinophils (%) (Auto) 0.1 % Basophils (%) (Auto) 0.1 % Neutrophils # (Auto) 8.18 K/uL Lymphocytes # (Auto) 1.44 K/uL Monocytes # (Auto) 0.86 K/uL Eosinophils # (Auto) 0.01 K/uL Basophils # (Auto) 0.01 K/uL RDW Standard Deviation 49.6 fL RDW Coefficient of Variation 15.3 % Immature Granulocyte % (Auto) 0.4 % Immature Granulocyte # (Auto) 0.04 K/uL Sodium Level 144 mmol/L Potassium Level 4.2 mmol/L Chloride Level 118 mmol/L Carbon Dioxide Level 20 mmol/L Anion Gap 6.0 mmol/L Blood Urea Nitrogen 19 mg/dl Creatinine 1.47 mg/dl Est Creatinine Clear Calc Drug Dose 52.1 ml/min Estimated GFR () 58.4 Estimated GFR (Non- 50.4 BUN/Creatinine Ratio 12.6 Random Glucose 129 mg/dl Calcium Level 7.7 mg/dl Magnesium Level 1.9 mg/dl Test 09/15/17 07:17 Bedside Glucose 102 mg/dl Assessment and Plan Patient is a 62 year old male admitted for hypotension, CRISTIAN, electrolye imbalance and acute on chronic diarrhea. He has chronic diarrhea which is suspected to be multifactorial: microscopic colitis, DM, pancreatic insufficiency ? remote suspicion of possible UC. Stool for c.diff and culture are pending. He was started on cipro/flagyl at time of admission. He notes that since admission, his abdominal pain is back down to baseline, and his bowels are almost at baseline as well (5 non-bloody stools since admission). Will need to complete accurate med rec when pt , [facility] comes in. - Please taper off IV hydrocortisone and resume outpatient dosing for adrenal insufficiency - Ok to hold cipro/flagyl - Follow up stool culture - C.diff negative - Monitor electrolytes and correction per primary team. MED REC WITH PT AND HIS - JASMYNE: worked well but was stopped due to $$$ 2 tabs w/ meals 1 tab w/ snack - cholestyramine, is taking this twice daily - elavil, stopped and didn't request refill, but worked - lomotil, using - clonidine, was using but ran out I suggest during admission we use creon 24,000 with meals and 16,000 with snacks , increase cholestyramine 4G TID, lomotil 2 tabs TID and clonidine 0.05 mg BID. He can use amitriptyline 25 mg PRN if he wishes. I saw and evaluated the patient. After a long discussion it appears that he is not taking the outpatient regimen has previously discussed. Ms Mathew was able to get in contact with the patient's who had a full list of his present medications. He had been placed onto a pancreatic enzyme supplement in the past but feels that this is probably too expensive Recommendations Perhaps we can simplify his regimen Questran 4 g 3 times daily Lomotil 2 tabs 2 times daily Hold clonidine for the present time Hold Creon for the present time
[2017-09-15] MEDS: CHOLESTYRAMINE LIGHT 4 GM PKT PO SCH ×2 (10:39→21:04)
[2017-09-15] MEDS: INSULIN GLARGINE SOLOSTAR 100 UNITS/ML 3 ML PEN SC SCH (12:19)
[2017-09-15] MEDS: MoRPHine SULFATE 4 MG/ML 1 ML CARP\\VIAL IV PRN ×2 (13:35→19:57)
[2017-09-15] MEDS ORDERED: ALUMINUM/MAGNESIUM SUSP 30 ML UDC PO PRN (20:15)
[2017-09-15] MEDS ORDERED: ALUMINUM/MAGNESIUM SUSP 30 ML UDC PO ONE (20:15)
[2017-09-15] MEDS ORDERED: AMITRIPTYLINE HCL 25 MG TAB PO SCH (21:00)
[2017-09-16 00:05] VITALS: BP 164/88; PULSE 46; TEMP 37.1; O2SAT 98
[2017-09-16] MEDS: SODIUM CHLORIDE 0.9% 1000ML 1,000 ML IV SCH (00:06)
[2017-09-16] MEDS: MoRPHine SULFATE 4 MG/ML 1 ML CARP\\VIAL IV PRN ×2 (00:06→04:32)
[2017-09-16 05:02] VITALS: BP 172/85; PULSE 58; TEMP 36.7; O2SAT 99
[2017-09-16] MEDS: HYDROCORTISONE IV 50 MG in SYRINGE 0 ML IV SCH (06:08)
[2017-09-16 06:35] LABS: BASO % 0.1 %; BASO ABS # 0.01 K/uL (0-0.2); COMPLETE YES; EOS % 0.8 %; HEMATOCRIT 34.9 % (42-52); IG% 0.4 %; LYMPH % 24.8 %; LYMPH ABS # 2.46 K/uL (1.2-3.4); MEAN CELL VOLUME 89.5 fL (80-100); MEAN CORPUSCULAR HGB CONC 33.5 g/dl (32-36); MEAN PLATELET VOLUME 9.7 fL (7.4-10.4); MONO % 8.7 %; NEUT % 65.2 %; PLATELET COUNT 154 K/uL (130-400)
[2017-09-16 07:08] LABS: BUN/CREATININE RATIO 9.7 (10-20); CALCIUM 8.3 mg/dl (8.5-10.1); CREATININE 1.38 mg/dl (0.60-1.40); MAGNESIUM 1.7 mg/dl (1.8-2.4); POTASSIUM 3.9 mmol/L (3.5-5.1)
[2017-09-16] MEDS: INSULIN ASPART 100 UNITS/ML 3 ML PEN SC SCH (07:39)
[2017-09-16 07:53] VITALS: BP 174/87; PULSE 50; TEMP 36.5; O2SAT 100
--- NOTE | 2017-09-16 08:36 | Progress Note ---
Internal Med Progress Note Date of Service: Sep 16, 2017. Provider Documentation: SUBJECTIVE: Seen and examined at bedside Doing well this morning Reports mild Abdominal discomfort Reports chronic diarrhea Denies Nausea, vomiting, dizziness, chest pain, SOB No other complaints He feels he is back to baseline OBJECTIVE: Vital Signs-as noted below Physical Exam: General Appearance:Moderately built and nourished, no apparent distress Head: normocephalic, Atraumatic Eyes: normal inspection, EOMI, PERRL Neck: supple, Trachea midline Respiratory/Chest: Normal breath sounds, CTA Cardiovascular: S1, S2, No murmur Abdomen/GI:Soft, non tender, Bowel sounds present Extremities/Musculoskelatal:normal inspection, no edema Neurologic/Psych:AAOX3, grossly no focal neurological deficits Skin: normal color, warm Lab data as noted below. ASSESSMENT & PLAN: Patient is a 62 yr male with history of Microscopic Colitis, possible Ulcerative Colitis, Adrenal Insufficiency, CAD, DM, HTN presenting with diarrhea and weakness x 5 days. DIARRHEA WITH ABDOMINAL PAIN H/O chronic diarrhea: Likely Multifactorial Microscopic colitis, DM II, pancreatic insufficiency, possible UC flare stool studies; negative stool for C diff: negative Discontinue Cipro and flagyl Plan to taper Hydrocortisone 50mg QID--> taper to q8h--> BID >>>taper slowly then resume usual Hydrocortisone PO TID DC IV fluids Advance diet as tolerated Appreciate GI Input Continue Questran 4g TID, Lomotil 2 tabs BID per GI recommendations ACUTE RENAL FAILURE Resolved likely pre renal from GI losses DC IV fluids Cr 2.5 >>>1.8>>>1.47>>>1.38 hold Lisinopril for now renally dose medications BORDERLINE HYPOTENSION ADRENAL INSUFFICIENCY BP better Resume Imdur Hold Lisinopril for now IV fluids discontinued Stress dose Hydrocortisone 50mg QID >>> taper to q8h >>> BID >>>taper slowly then resume usual Hydrocortisone PO TID monitor CAD continue Aspirin, Imdur Hold Lisinopril for now DM hold Lantus and Aspart ISS for now Pharmacy Glycemic Control, appreciate the recommendations DVT Px SCDs Lovenox contraindicated as patient having Colitis, high risk for bleeding encourage ambulation Code Status: FULL CODE Disposition Plan to discharge home today Follow up with your PCP Dr. Lin on 09/18/17 at 10:25AM Follow up with your soaping machine back tender as advised Seek immediate medical attention if your symptoms reoccur or worsen Vital Signs: Date Time Temp Pulse Resp B/P (MAP) Pulse Ox O2 Delivery O2 Flow Rate FiO2 09/16/17 08:00 Room Air 09/16/17 07:53 36.5 50 16 174/87 (116) 100 Room Air 09/16/17 05:02 36.7 58 16 172/85 (114) 99 Room Air 09/16/17 04:00 Room Air 09/16/17 00:05 37.1 46 16 164/88 (113) 98 Room Air 09/16/17 00:00 Room Air 09/15/17 20:00 97 Room Air 09/15/17 19:27 36.7 65 18 149/92 (111) 98 Room Air 09/15/17 16:26 36.6 48 16 159/98 (118) 99 Room Air 09/15/17 16:00 98 Room Air 09/15/17 15:12 36.9 61 18 140/81 (100) 98 Room Air 09/15/17 12:50 100 Room Air 09/15/17 12:46 36.7 58 16 148/84 (105) 100 Room Air 09/15/17 12:00 Room Air 09/15/17 10:24 99 Room Air Lab Results: Results Past 24 Hours Test 09/15/17 11:09 09/15/17 13:15 09/15/17 16:07 09/15/17 20:12 Range/Units Bedside Glucose 143 159 145 113 70-99 mg/dl Test 09/16/17 06:26 09/16/17 06:46 Range/Units White Blood Count 9.90 4.8-10.8 K/uL Red Blood Count 3.90 4.7-6.1 M/uL Hemoglobin 11.7 14.0-18.0 g/dL Hematocrit 34.9 42-52 % Mean Corpuscular Volume 89.5 80-100 fL Mean Corpuscular Hemoglobin 30.0 25-34 pg Mean Corpuscular Hemoglobin Concent 33.5 32-36 g/dl Platelet Count 154 130-400 K/uL Mean Platelet Volume 9.7 7.4-10.4 fL Neutrophils (%) (Auto) 65.2 % Lymphocytes (%) (Auto) 24.8 % Monocytes (%) (Auto) 8.7 % Eosinophils (%) (Auto) 0.8 % Basophils (%) (Auto) 0.1 % Neutrophils # (Auto) 6.45 1.4-6.5 K/uL Lymphocytes # (Auto) 2.46 1.2-3.4 K/uL Monocytes # (Auto) 0.86 0.11-0.59 K/uL Eosinophils # (Auto) 0.08 0-0.5 K/uL Basophils # (Auto) 0.01 0-0.2 K/uL RDW Standard Deviation 51.0 36.4-46.3 fL RDW Coefficient of Variation 15.6 11.5-14.5 % Immature Granulocyte % (Auto) 0.4 % Immature Granulocyte # (Auto) 0.04 0.00-0.02 K/uL Sodium Level 147 136-145 mmol/L Potassium Level 3.9 3.5-5.1 mmol/L Chloride Level 115 98-107 mmol/L Carbon Dioxide Level 27 21-32 mmol/L Anion Gap 4.0 3-11 mmol/L Blood Urea Nitrogen 13 7-18 mg/dl Creatinine 1.38 0.60-1.40 mg/dl Est Creatinine Clear Calc Drug Dose 55.5 ml/min Estimated GFR () 63.1 Estimated GFR (Non- 54.4 BUN/Creatinine Ratio 9.7 10-20 Random Glucose 83 70-99 mg/dl Calcium Level 8.3 8.5-10.1 mg/dl Magnesium Level 1.7 1.8-2.4 mg/dl Bedside Glucose 82 70-99 mg/dl
--- NOTE | 2017-09-16 08:48 | Gastroenterology Progress Note ---
Progress Note Date of Service: Sep 16, 2017 Subjective Pt evaluation today including: conversation w/ patient, physical exam Pt seen and evaluated, chart reviewed. Med rec w/ pt and his daughter yesterday , he is not taking a lot of the medications that GI thought he was. Feels well today. No abdominal pain. Bowls are back to baseline. No fever, chills, CP, SOB. Wants to home. Review of Systems Constitutional: No fever, No chills Respiratory: No cough, No shortness of breath Cardiac: No chest pain Abdomen: No pain, No diarrhea, No constipation Medications Current Inpatient Medications Medications (Trade) Dose Ordered Sig/Tisha Route Start Time Stop Time Status Last Admin Dose Admin Miscellaneous Information (Consult Glycemic Management Pharmacy) 1 ea UD PRN N/A 09/13/17 18:30 10/13/17 18:29 Insulin Aspart (novoLOG ASPART) SLIDING SCALE If C... ACHS SC 09/13/17 21:00 10/13/17 20:59 09/16/17 07:39 4 UNITS Glucose (Glucose 40% Gel) 15-30 GRAMS 15 GRAMS... UD PRN PO 09/13/17 16:15 10/13/17 16:14 Glucose (Glucose Chew Tab) 4-8 Tablets 4 Tabl... UD PRN PO 09/13/17 16:15 10/13/17 16:14 Dextrose (Dextrose 50% 50ML Syringe) 25-50ML OF 50% DW IV FOR... UD PRN IV 09/13/17 16:15 10/13/17 16:14 Glucagon (Glucagon Inj) 1 mg UD PRN SQ 09/13/17 16:15 10/13/17 16:14 Acetaminophen (Tylenol Tab) 650 mg Q4H PRN PO 09/13/17 16:30 10/13/17 16:29 09/14/17 08:12 650 MG Ondansetron HCl (Zofran Inj) 4 mg Q6H PRN IV 09/13/17 16:30 10/13/17 16:29 09/13/17 17:29 4 MG Alprazolam (Xanax Tab) 0.5 mg HS PRN PO 09/13/17 16:30 10/13/17 16:29 Aspirin (Ecotrin Tab) 81 mg QAM PO 09/14/17 09:00 10/14/17 08:59 09/15/17 08:20 81 MG Diphenoxylate HCl/ Atropine (Lomotil Tab) 2 tab TID PO 09/13/17 21:00 10/13/17 20:59 09/15/17 19:58 2 TAB Fluoxetine HCl (Prozac Cap) 20 mg QAM PO 09/14/17 09:00 10/14/17 08:59 09/15/17 08:21 20 MG Hydroxyzine HCl (Vistaril Tab) 12.5 mg HS PRN PO 09/13/17 16:30 10/13/17 16:29 Mirtazapine (Remeron Tab) 30 mg HS PRN PO 09/13/17 16:30 10/13/17 16:29 09/15/17 21:04 30 MG Ranitidine HCl (zANTac TAB) 150 mg BID PO 09/13/17 21:00 10/13/17 20:59 09/15/17 19:57 150 MG Cholestyramine Resin (Questran Powder Light) 4 gm BID@1000,2200 PO 09/13/17 22:00 10/13/17 21:59 09/15/17 21:04 4 GM Miscellaneous Information (Order Awaiting Action) 1 ea QS N/A 09/14/17 00:00 10/14/17 00:00 Morphine Sulfate (MoRPHine SULFATE INJ) 4 mg Q4H PRN IV 09/13/17 17:00 09/27/17 16:59 09/16/17 04:32 4 MG Tiotropium [place] (Spiriva Handihaler Inhaler) 1 puff DAILY INH 09/15/17 09:00 10/15/17 08:59 09/15/17 08:19 1 PUFF Insulin Glargine (Lantus Solostar Pen) 5 units QAM SC 09/15/17 09:00 10/15/17 08:59 09/15/17 12:19 5 UNITS Al Hydroxide/Mg Hydroxide (Maalox Susp) 15 ml Q6H PRN PO 09/15/17 20:15 10/15/17 20:14 Hydrocortisone (Cortef Tab) 10 mg HS PO 09/16/17 21:00 10/16/17 20:59 Hydrocortisone (Cortef Tab) 10 mg QDL PO 09/16/17 11:30 10/16/17 11:29 Hydrocortisone (Cortef Tab) 25 mg QAM PO 09/17/17 09:00 10/17/17 08:59 Magnesium Chloride (Slow-Mag Tab) 64 mg BID PO 09/16/17 09:00 09/18/17 08:59 Isosorbide Mononitrate (Imdur Ext Rel Tab) 60 mg QAM PO 09/16/17 09:00 10/16/17 08:59 Objective Vital Signs Date Time Temp Pulse Resp B/P (MAP) Pulse Ox O2 Delivery O2 Flow Rate FiO2 09/16/17 07:53 36.5 50 16 174/87 (116) 100 Room Air 09/16/17 05:02 36.7 58 16 172/85 (114) 99 Room Air 09/16/17 04:00 Room Air 09/16/17 00:05 37.1 46 16 164/88 (113) 98 Room Air 09/16/17 00:00 Room Air 09/15/17 20:00 97 Room Air 09/15/17 19:27 36.7 65 18 149/92 (111) 98 Room Air 09/15/17 16:26 36.6 48 16 159/98 (118) 99 Room Air 09/15/17 16:00 98 Room Air 09/15/17 15:12 36.9 61 18 140/81 (100) 98 Room Air 09/15/17 12:50 100 Room Air 09/15/17 12:46 36.7 58 16 148/84 (105) 100 Room Air 09/15/17 12:00 Room Air 09/15/17 10:24 99 Room Air Physical Exam General Appearance: no apparent distress Eyes: PERRL ENT: hearing grossly normal Neck: supple Respiratory/Chest: lungs clear Cardiovascular: regular rate, rhythm Abdomen: normal bowel sounds, soft Neurologic/Psych: alert, normal mood/affect, oriented x 3 Skin: normal color Laboratory Results Last 24 Hours Test 09/15/17 11:09 09/15/17 13:15 09/15/17 16:07 09/15/17 20:12 Bedside Glucose 143 mg/dl 159 mg/dl 145 mg/dl 113 mg/dl Test 09/16/17 06:26 09/16/17 06:46 White Blood Count 9.90 K/uL Red Blood Count 3.90 M/uL Hemoglobin 11.7 g/dL Hematocrit 34.9 % Mean Corpuscular Volume 89.5 fL Mean Corpuscular Hemoglobin 30.0 pg Mean Corpuscular Hemoglobin Concent 33.5 g/dl Platelet Count 154 K/uL Mean Platelet Volume 9.7 fL Neutrophils (%) (Auto) 65.2 % Lymphocytes (%) (Auto) 24.8 % Monocytes (%) (Auto) 8.7 % Eosinophils (%) (Auto) 0.8 % Basophils (%) (Auto) 0.1 % Neutrophils # (Auto) 6.45 K/uL Lymphocytes # (Auto) 2.46 K/uL Monocytes # (Auto) 0.86 K/uL Eosinophils # (Auto) 0.08 K/uL Basophils # (Auto) 0.01 K/uL RDW Standard Deviation 51.0 fL RDW Coefficient of Variation 15.6 % Immature Granulocyte % (Auto) 0.4 % Immature Granulocyte # (Auto) 0.04 K/uL Sodium Level 147 mmol/L Potassium Level 3.9 mmol/L Chloride Level 115 mmol/L Carbon Dioxide Level 27 mmol/L Anion Gap 4.0 mmol/L Blood Urea Nitrogen 13 mg/dl Creatinine 1.38 mg/dl Est Creatinine Clear Calc Drug Dose 55.5 ml/min Estimated GFR () 63.1 Estimated GFR (Non- 54.4 BUN/Creatinine Ratio 9.7 Random Glucose 83 mg/dl Calcium Level 8.3 mg/dl Magnesium Level 1.7 mg/dl Bedside Glucose 82 mg/dl Assessment and Plan Patient is a 62 year old male admitted for hypotension, CRISTIAN, electrolye imbalance and acute on chronic diarrhea. He has chronic diarrhea which is suspected to be multifactorial: microscopic colitis, DM, pancreatic insufficiency ? remote suspicion of possible UC. Stool for c.diff and culture are pending. He was started on cipro/flagyl at time of admission. He notes that since admission, his abdominal pain is back down to baseline, and his bowels are almost at baseline as well (5 non-bloody stools since admission). Will need to complete accurate med rec when pt , [facility] comes in. MED REC WITH PT AND HIS - CREON: worked well but was stopped due to $$$ 2 tabs w/ meals 1 tab w/ snack - cholestyramine, is taking this twice daily - elavil, stopped and didn't request refill, but worked - lomotil, using - clonidine, was using but ran out We recommend Questran 4 g 3 times daily Lomotil 2 tabs 2 times daily Hold clonidine for the present time Hold Creon for the present time FODMAPs diet GI signing, off, no contraindication to discharge. Patient was discharged prior to afternoon rounds. He will continue to follow with Dr. Keith his primary GI provider.
[2017-09-16] MEDS ORDERED: LMTHP PO (08:54)
[2017-09-16] MEDS ORDERED: CHOL4POW11 PO (08:54)
[2017-09-16] MEDS ORDERED: SLWMEC PO (08:54)
--- NOTE | 2017-09-16 08:59 | Discharge Instructions ---
Discharge Instructions Date of Service Sep 16, 2017. Admission Reason for Admission: Acute Renal Failure Discharge Discharge Diagnosis / Problem: Microscopic Colitis, CRISTIAN Discharge Goals Goal(s): Decrease discomfort, Improve function Activity Recommendations Activity Limitations: resume your previous activity Exercise/Sports Limitations: as tolerated . Instructions / Follow-Up Instructions / Follow-Up Follow up with your PCP Dr. Lin on 09/18/17 at 10:25AM Follow up with your rope walker as advised Your Questran was increased to 4g three times a day and Lomotil changed to 2 Tabs twice a day Seek immediate medical attention if your symptoms reoccur or worsen Current Hospital Diet Patient's current hospital diet: Diabetes Type 2 Diet Discharge Diet Recommended Diet: Diabetes Type 2 Diet Pending Studies Studies pending at discharge: no Medical Emergencies . Who to Call and When: Medical Emergencies: If at any time you feel your situation is an emergency, please call 911 immediately. . Non-Emergent Contact Non-Emergency issues call your: Primary Care Provider, Toll Gate Tender Call Non-Emergent contact if: you have a fever, your pain is not controlled, your pain is worsening, your pain is unusual for you, your pain is concerning you, you have any medication questions Seek immediate medical attention if your symptoms reoccur or worsen . . "Provider Documentation" section prepared by Carlyle Cooley. . VTE Core Measure Inpt VTE Proph given/why not?: SCD's
[2017-09-16] MEDS ORDERED: MAGNESIUM CHLORIDE 64MG DELAYED REL TAB PO SCH (09:00)
[2017-09-16] MEDS ORDERED: ISOSORBIDE MONONITRATE 60 MG TABCR PO SCH (09:00)
--- NOTE | 2017-09-16 09:02 | Discharge Summary ---
Discharge Summary Date of Service Sep 16, 2017. Discharge Summary Admission Date: Sep 13, 2017 at 16:08 Discharge Date: Sep 16, 2017 Discharge Disposition: Home Principal Diagnosis: Microscopic Colitis, CRISTIAN Procedures: CT ABD: 1. No evidence of bowel obstruction. No evidence of free air 2. No renal, ureteral, or bladder calculi identified 3. No acute inflammatory changes Consultations: GI Pending Studies/Follow-Up: Follow up with your PCP Dr. Lin on 09/18/17 at 10:25AM Follow up with your section gang worker as advised Your Questran was increased to 4g three times a day and Lomotil changed to 2 Tabs twice a day Seek immediate medical attention if your symptoms reoccur or worsen Medication Reconciliation New Medications: Magnesium Chloride (Slow-Mag Tab) 64 Mg Tabcr 64 MG PO BID for 2 Days, #4 EA Changed Medications: Cholestyramine (Questran) 4 Gm Pow 4 GM PO TID for 30 Days, #360 GM (Changed from: BID; 240) mix with liquid Diphenoxylate/Atropine (Diphenoxylate/Atropine 2.5-0.025 mg) 1 Tab Tab 2 TAB PO BID for 30 Days, #120 TAB (Changed from: TID; 180) Continued Medications: Albuterol Hfa (Ventolin Hfa) 200 Puffs/07338 Mcg Aers 3-4 PUFFS INH QID PRN for sob/wheezing, #1 INHALER Albuterol Sulf (Proventil 0.083% 2.5MG/3ML) 2.5 Mg/3 Ml Nebu 2.5 MG INH QID PRN for Wheezing, EA Alprazolam (Xanax) 0.5 Mg Tab 0.5 MG PO HS PRN for Sleep, TAB Aspirin (Aspirin Chewable) 81 Mg Chew 81 MG PO QAM Atorvastatin (Lipitor) 80 Mg Tab 1 TAB PO DAILY for 30 Days, #30 TAB 5 Refills Dexamethasone Sod Phos (Dexamethasone Sodium Phos) 4 Mg/Ml Inj 1 ML IM DIRECTED PRN for emergency treatment Fluoxetine HCl (Fluoxetine HCl) 20 Mg Cap 20 MG PO QAM, #90 Fluticasone Furoate-Vilanterol (Breo Ellipta) 1 Inh Inh 1 INHA PO DAILY Hydrocortisone (Cortef) 10 Mg Tab 25 MG PO QAM, TAB Hydrocortisone (Cortef) 10 Mg Tab 10 MG PO QDL, TAB Hydrocortisone (Cortef) 10 Mg Tab 10 MG PO HS, TAB Hydroxyzine Hcl (Atarax) 50 Mg Tab 50 MG PO HS PRN for Insomnia, TAB Insulin Glargine (Lantus) 100 Unit/Ml Inj 10-20 UNITS SC UD, VIAL USE DIRECTED Insulin Lispro (Human) (Humalog) 100 Unit/Ml Inj SC ACHS SLIDING SCALE, MAX UNITS DAILY, 40 UNITS Ipratropium-Albuterol (Duoneb) 3 Ml Nebu 1 TREATMENT INH QID PRN for sob/wheezing, #30 INHA Isosorbide Mononitrate Ext Rel (Imdur Ext Rel) 60 Mg Ertab 60 MG PO QAM, TAB Lisinopril (Zestril) 5 Mg Tab 5 MG PO QAM, TAB Mirtazapine (Remeron) 30 Mg Tab 1 TAB PO HS PRN for Insomnia for 30 Days, #30 TAB 1 Refill Ranitidine Hcl (Zantac) 150 Mg Tab 150 MG PO BID, TAB Tiotropium [place] (Spiriva Handihaler) 30 Puff/540 Mcg Aerp 1 CAP INH DAILY, INHALER Admission Information HPI (per Admitting provider): 62 year old male with history of Ulcerative Colitis, Adrenal Insufficiency, CAD , DM, HTN, presenting with diarrhea and weakness x 5 days. Patient was at his usual state of health until 5 days ago when he started to have loose watery stools, about 10x /day, non bloody, associated with diffuse abdominal cramping. He had very poor oral intake as well and became progressively weak. Denies fever/chills, chest pain, dyspnea. At the ER, patient arrived with marginal BP. He was given multiple IV NSS boluses and Hydrocortisone 100mg IV. CT abdomen/pelvis was unrevealing. On exam, patient sitting up in bed, not in distress, appears tired but alert, pleasant. States he feels slightly improved, still has some abdominal pain and diarrhea today. No other symptoms. Physical Exam (per Admitting): General Appearance: WD/WN, no apparent distress Head: normocephalic, atraumatic Eyes: normal inspection, PERRL, EOMI, sclerae normal ENT: normal ENT inspection, hearing grossly normal, pharynx normal Neck: supple, no adenopathy, thyroid normal, no JVD, trachea midline Respiratory/Chest: chest non-tender, lungs clear, normal breath sounds, no respiratory distress, no accessory muscle use Cardiovascular: regular rate, rhythm, no edema, no JVD, no murmur Abdomen/GI: normal bowel sounds, soft, no organomegaly, + pertinent finding (mild tenderness on right LQ) Back: normal inspection, no CVA tenderness, no muscle spasm Extremities/Musculoskelatal: normal inspection, no calf tenderness, normal capillary refill, no pedal edema, normal range of motion, non-tender Neurologic/Psych: manufacturing director II-XII nml as tested, no motor/sensory deficits, alert , normal mood/affect, oriented x 3 Skin: normal color, warm/dry, no rash Lymphatic: no adenopathy Hospital Course Patient is a 62 yr male with history of Microscopic Colitis, possible Ulcerative Colitis, Adrenal Insufficiency, CAD, DM, HTN presenting with diarrhea and weakness x 5 days. DIARRHEA WITH ABDOMINAL PAIN H/O chronic diarrhea: Likely Multifactorial Microscopic colitis, DM II, pancreatic insufficiency, possible UC flare stool studies; negative stool for C diff: negative Discontinue Cipro and flagyl Plan to taper Hydrocortisone 50mg QID--> taper to q8h--> BID >>>taper slowly then resume usual Hydrocortisone PO TID DC IV fluids Advance diet as tolerated Appreciate GI Input Continue Questran 4g TID, Lomotil 2 tabs BID per GI recommendations ACUTE RENAL FAILURE Resolved likely pre renal from GI losses DC IV fluids Cr 2.5 >>>1.8>>>1.47>>>1.38 hold Lisinopril for now renally dose medications BORDERLINE HYPOTENSION ADRENAL INSUFFICIENCY BP better Resume Imdur Hold Lisinopril for now IV fluids discontinued Stress dose Hydrocortisone 50mg QID >>> taper to q8h >>> BID >>>taper slowly then resume usual Hydrocortisone PO TID monitor CAD continue Aspirin, Imdur Hold Lisinopril for now DM hold Lantus and Aspart ISS for now Pharmacy Glycemic Control, appreciate the recommendations DVT Px SCDs Lovenox contraindicated as patient having Colitis, high risk for bleeding encourage ambulation Code Status: FULL CODE Disposition Plan to discharge home today Follow up with your PCP Dr. Lin on 09/18/17 at 10:25AM Follow up with your section gang worker as advised Seek immediate medical attention if your symptoms reoccur or worsen Total time spent on discharge = 36 minutes This includes examination of the patient, discharge planning, medication reconciliation, and communication with other providers. Discharge Instructions Discharge Instructions Date of Service Sep 16, 2017. Admission Reason for Admission: Acute Renal Failure Discharge Discharge Diagnosis / Problem: Microscopic Colitis, CRISTIAN Discharge Goals Goal(s): Decrease discomfort, Improve function Activity Recommendations Activity Limitations: resume your previous activity Exercise/Sports Limitations: as tolerated . Instructions / Follow-Up Instructions / Follow-Up Follow up with your PCP Dr. Lin on 09/18/17 at 10:25AM Follow up with your section gang worker as advised Your Questran was increased to 4g three times a day and Lomotil changed to 2 Tabs twice a day Seek immediate medical attention if your symptoms reoccur or worsen Current Hospital Diet Patient's current hospital diet: Diabetes Type 2 Diet Discharge Diet Recommended Diet: Diabetes Type 2 Diet Pending Studies Studies pending at discharge: no Medical Emergencies . Who to Call and When: Medical Emergencies: If at any time you feel your situation is an emergency, please call 911 immediately. . Non-Emergent Contact Non-Emergency issues call your: Primary Care Provider, Welder Railcar Mechanic Call Non-Emergent contact if: you have a fever, your pain is not controlled, your pain is worsening, your pain is unusual for you, your pain is concerning you, you have any medication questions Seek immediate medical attention if your symptoms reoccur or worsen . . "Provider Documentation" section prepared by Carlyle Cooley. . VTE Core Measure Inpt VTE Proph given/why not?: SCD's
[2017-09-16] MEDS: DIPHENOXYLATE/ATROPINE 2.5/0.025MG TAB PO SCH (09:20)
[2017-09-16] MEDS: RANITIDINE HCL 150 MG TAB PO SCH (09:22)
[2017-09-16] MEDS: ASPIRIN 81 MG ECTAB PO SCH (09:22)
[2017-09-16] MEDS: FLUOXETINE HCL 20 MG CAP PO SCH (09:23)
[2017-09-16] MEDS: TIOTROPIUM BROMIDE 5 PUFF/90 MCG INH INH SCH (09:24)
[2017-09-16] MEDS: INSULIN GLARGINE SOLOSTAR 100 UNITS/ML 3 ML PEN SC SCH (09:27)
[2017-09-16 09:36] VITALS: BP 174/87; PULSE 50; TEMP 36.5; O2SAT 100
[2017-09-16 10:22] VITALS: O2SAT 100
[2017-09-16] MEDS ORDERED: HYDROCORTISONE 10 MG TAB PO SCH ×2 (11:30→21:00)
[2017-09-17] MEDS ORDERED: HYDROCORTISONE 10 MG TAB PO SCH (09:00)
== END 2017-09-16 11:41 | disposition home or self-care (01) | DRG 683 ==
LOC: C.EDB 10:07 → EDBEDREQSVC 16:05 → C.2T 16:08 → ENRESERV 16:09
PROVIDERS: ADMIT Internal Medicine; ATTEND Internal Medicine
DX: N17.9 Acute kidney failure, unspecified (principal); K52.839 Microscopic colitis, unspecified; E27.40 Unspecified adrenocortical insufficiency; I25.10 Atherosclerotic heart disease of native coronary artery without angina pectoris; E11.9 Type 2 diabetes mellitus without complications; I95.9 Hypotension, unspecified; J44.9 Chronic obstructive pulmonary disease, unspecified; F41.8 Other specified anxiety disorders; E78.5 Hyperlipidemia, unspecified; I10 Essential (primary) hypertension; F17.200 Nicotine dependence, unspecified, uncomplicated; Z79.82 Long term (current) use of aspirin; Z79.4 Long term (current) use of insulin

== ENCOUNTER 2017-11-30 12:34 | Inpatient (IN) | payer OTHER ==
[~2017-11-30] VITALS: Ht 175.3 cm; Wt 75.5 kg
[~2017-11-30 12:34] MED LIST changes: -AMT25 PO; -CTP1 PO; +DEXA4INJ32 IM; -DEXA4INJ38 IM; -ENT3 PO; +HYDR10TA52 PO; -MGNO400 PO; -OXYC7.5T66 PO; -PANC24002 PO; -PANC6000 PO; -POTA1POW PO; +SLWMEC PO
[2017-11-30] MEDS ORDERED: MoRPHine SULFATE 10 MG/ML CARP/VIAL IV STA (13:01)
[2017-11-30] MEDS ORDERED: SODIUM CHLORIDE 0.9% 1000ML 1,000 ML IV STA ×2 (13:01→16:10)
[2017-11-30] MEDS ORDERED: ACETAMINOPHEN 500 MG TAB PO STA (13:01)
[2017-11-30] MEDS ORDERED: ONDANSETRON INJ 2 MG/ML 2 ML VIAL IV STA (13:01)
[2017-11-30] MEDS ORDERED: ALBUT/IPRATROP 3MG/0.5MG NEB 3 ML VIAL INH STA (13:01)
[2017-11-30] MEDS ORDERED: MoRPHine SULFATE 4 MG/ML 1 ML CARP\\VIAL ONE ×2 (13:52→17:10)
[2017-11-30] MEDS ORDERED: MoRPHine SULFATE 2 MG/ML CARP ONE (13:52)
[2017-11-30 14:00] LABS: BASO % 0.2 %; BASO ABS # 0.02 K/uL (0-0.2); EOS % 1.1 %; EOS ABS # 0.09 K/uL (0-0.5); HEMOGLOBIN 12.8 g/dL (14.0-18.0); IG# 0.05 K/uL (0.00-0.02); LYMPH % 14.7 %; LYMPH ABS # 1.21 K/uL (1.2-3.4); MEAN CELL VOLUME 89.8 fL (80-100); MEAN CORPUSCULAR HEMOGLOBIN 30.3 pg (25-34); MEAN CORPUSCULAR HGB CONC 33.7 g/dl (32-36); MEAN PLATELET VOLUME 10.3 fL (7.4-10.4); MONO % 14.1 %; MONO ABS # 1.16 K/uL (0.11-0.59); NEUT % 69.3 %; NEUT ABS # 5.71 K/uL (1.4-6.5); PLATELET COUNT 189 K/uL (130-400); RED CELL DISTRIBUTION WIDTH SD 48.2 fL (36.4-46.3); WHITE BLOOD COUNT 8.24 K/uL (4.8-10.8)
--- NOTE | 2017-11-30 14:19 | DIAGNOSTIC IMAGING REPORT ---
CHEST 2 VIEWS ROUTINE HISTORY: cough, fever COMPARISON: Chest 06/25/2017. FINDINGS: The lungs are clear. Cardiac silhouette is normal in size. No pleural effusions. No pneumothorax. IMPRESSION: No acute process. Electronically signed by: Corey Morejon M.D. 11/30/2017 2:17 PM Dictated Date/Time: 11/30/2017 2:14 PM
[2017-11-30 14:20] LABS: ALBUMIN 3.4 gm/dl (3.4-5.0); CALCIUM 9.5 mg/dl (8.5-10.1); CREATININE 1.23 mg/dl (0.60-1.40); POTASSIUM 3.4 mmol/L (3.5-5.1)
[2017-11-30 14:22] LABS: TOTAL PROTEIN 7.1 gm/dl (6.4-8.2)
[2017-11-30 14:30] LABS: INFLUENZA B ANTIGEN Neg for Influ B (NEG)
[2017-11-30] MEDS ORDERED: DEXAMETHASONE **PF** INJ 10 MG/ML VIAL IV ONE (14:30)
[2017-11-30] MEDS ORDERED: MAGNESIUM SULFATE 1GM / D5W 1 GM BAG IV STA (16:22)
--- NOTE | 2017-11-30 18:36 | EMERGENCY ROOM VISIT NOTE ---
History First contact with patient: 12:52 Chief Complaint: ILLNESS Stated Complaint: WEAKNESS- SORE THROAT TEMP History of Present Illness The patient is a 62 year old male who presents to the Emergency Room sent over here by Dr. Lin's office with complaints of a fever and cough. The patient states that he was in [place] for 3 weeks and returned recently. He states for the last 3 days he has had frontal sinus proximal, fever, sore throat, chest tightness and shortness of breath due to the cough. He states he has not been eating and drinking very much. He states his temperature on Thursday was 101. Today it was 102. He has not taken anything for the fever. He also admits to some nausea but denies any vomiting. He also states that he has had diarrhea for the past 3 days. He does have a history of microscopic colitis and C. difficile in the past. The patient has a history of adrenal insufficiency and is on steroids. The patient states he feels very weak and is achy all over. The patient did have the influenza vaccine. Review of Systems 10 system review was performed and was negative unless stated otherwise history of present illness. Past Medical/Surgical History Medical Problems: (1) Acute renal failure (2) Acute renal failure (ARF) (3) Adrenal insufficiency (4) C. difficile diarrhea (5) CAD (coronary artery disease) (6) COPD (chronic obstructive pulmonary disease) (7) Hilbert's syndrome (8) Depression with anxiety (9) DM type 2 (diabetes mellitus, type 2) (10) HLD (hyperlipidemia) (11) HTN (hypertension) (12) Microscopic colitis Family History Diabetes mellitus FATHER MOTHER Social History Smoking Status: Current Every Day Smoker Alcohol Use: occasionally Drug Use: none Marital Status: Housing Status: lives with family Occupation Status: employed Current/Historical Medications Scheduled Aspirin (Aspirin Chewable), 81 MG PO QAM Atorvastatin (Lipitor), 80 MG PO HS Cholestyramine (Questran), 4 GM PO TID Diphenoxylate/Atropine (Diphenoxylate/Atropine 2.5-0.025 mg), 2 TAB PO BID Fluoxetine HCl (Fluoxetine HCl), 20 MG PO QAM Fluticasone Furoate-Vilanterol (Breo Ellipta), 1 INHA PO DAILY Hydrocortisone (Cortef), 25 MG PO QAM Hydrocortisone (Cortef), 10 MG PO QDL Hydrocortisone (Cortef), 10 MG PO HS Insulin Glargine (Lantus), 10-20 UNITS SC UD Insulin Lispro (Human) (Humalog), SC ACHS Isosorbide Mononitrate Ext Rel (Imdur Ext Rel), 60 MG PO QAM Lisinopril (Zestril), 5 MG PO QAM Ranitidine Hcl (Zantac), 150 MG PO BID Tiotropium [place] (Spiriva Handihaler), 1 CAP INH DAILY Scheduled PRN Albuterol Hfa (Ventolin Hfa), 3-4 PUFFS INH QID PRN for sob/wheezing Albuterol Sulf (Proventil 0.083% 2.5MG/3ML), 2.5 MG INH QID PRN for Wheezing Alprazolam (Xanax), 0.5 MG PO HS PRN for Sleep Dexamethasone Sod Phos (Dexamethasone Sodium Phos), 1 ML IM DIRECTED PRN for emergency treatment Hydroxyzine Hcl (Atarax), 50 MG PO HS PRN for Insomnia Ipratropium-Albuterol (Duoneb), 1 TREATMENT INH QID PRN for sob/wheezing Mirtazapine (Remeron), 30 MG PO HS PRN for Insomnia Physical Exam Vital Signs Date Time Temp Pulse Resp B/P (MAP) Pulse Ox O2 Delivery O2 Flow Rate FiO2 11/30/17 18:18 36.6 73 18 118/80 93 Room Air 11/30/17 17:38 82 11/30/17 16:44 36.9 83 18 109/75 94 Room Air 11/30/17 15:43 37.0 11/30/17 14:49 36.5 102 18 120/70 93 Room Air 11/30/17 14:49 36.5 102 18 120/70 93 Room Air 11/30/17 13:33 101 11/30/17 12:48 37.5 123 18 136/76 97 Room Air Physical Exam PHYSICAL EXAM: Vital Signs were reviewed: Temperature 37.5, blood pressure 136/ 76, pulse 123, respirations 18 Reviewed Nurse's notes and agree. Oxygen saturation is 97 % on room air which is normal . GENERAL: 62-year-old male appears in no acute distress. MENTAL STATUS: Alert, oriented, coherent. EARS: Canals clear. TMs good light reflex, no erythema or fluid level noted. NOSE: Nasal mucosa with moderate erythema engorgement. PHARYNX: Moderate erythema, no edema noted. No exudate noted. Airway is adequate. SINUSES: Patient is tender to palpation over the frontal sinuses. Maxillary sinuses nontender. NECK: Supple, non-tender. No lymphadenopathy noted. LUNGS: Patient has expiratory wheeze noted bilaterally along amaro. No rales or rhonchi noted. Good air exchange. CARDIAC: Regular rate and rhythm without murmur. BACK: No CVA tenderness noted. ABDOMEN: Positive bowel sounds all 4 quadrants. Soft, generalized tenderness palpation throughout without any specific point tenderness. No organomegaly or masses noted. LOWER EXTREMITIES: No cyanosis or edema noted. Calves are nontender. SKIN: No rashes noted. Medical Decision & Procedures ER Provider Diagnostic Interpretation: CHEST 2 VIEWS ROUTINE HISTORY: cough, fever COMPARISON: Chest 06/25/2017. FINDINGS: The lungs are clear. Cardiac silhouette is normal in size. No pleural effusions. No pneumothorax. IMPRESSION: No acute process. Electronically signed by: Corey Morejon M.D. 11/30/2017 2:17 PM Dictated Date/Time: 11/30/2017 2:14 PM Laboratory Results 11/30/17 13:31 Red Blood Count 4.23, Mean Corpuscular Volume 89.8, Mean Corpuscular Hemoglobin 30.3, Mean Corpuscular Hemoglobin Concent 33.7, Mean Platelet Volume 10.3, Neutrophils (%) (Auto) 69.3, Lymphocytes (%) (Auto) 14.7, Monocytes (%) (Auto) 14.1, Eosinophils (%) (Auto) 1.1, Basophils (%) (Auto) 0.2, Neutrophils # (Auto ) 5.71, Lymphocytes # (Auto) 1.21, Monocytes # (Auto) 1.16, Eosinophils # (Auto ) 0.09, Basophils # (Auto) 0.02 11/30/17 13:31 Test 11/30/17 13:31 11/30/17 13:32 11/30/17 15:35 White Blood Count 8.24 K/uL (4.8-10.8) Red Blood Count 4.23 M/uL (4.7-6.1) Hemoglobin 12.8 g/dL (14.0-18.0) Hematocrit 38.0 % (42-52) Mean Corpuscular Volume 89.8 fL (80-100) Mean Corpuscular Hemoglobin 30.3 pg (25-34) Mean Corpuscular Hemoglobin Concent 33.7 g/dl (32-36) Platelet Count 189 K/uL (130-400) Mean Platelet Volume 10.3 fL (7.4-10.4) Neutrophils (%) (Auto) 69.3 % Lymphocytes (%) (Auto) 14.7 % Monocytes (%) (Auto) 14.1 % Eosinophils (%) (Auto) 1.1 % Basophils (%) (Auto) 0.2 % Neutrophils # (Auto) 5.71 K/uL (1.4-6.5) Lymphocytes # (Auto) 1.21 K/uL (1.2-3.4) Monocytes # (Auto) 1.16 K/uL (0.11-0.59) Eosinophils # (Auto) 0.09 K/uL (0-0.5) Basophils # (Auto) 0.02 K/uL (0-0.2) RDW Standard Deviation 48.2 fL (36.4-46.3) RDW Coefficient of Variation 15.0 % (11.5-14.5) Immature Granulocyte % (Auto) 0.6 % Immature Granulocyte # (Auto) 0.05 K/uL (0.00-0.02) Anion Gap 10.0 mmol/L (3-11) Est Creatinine Clear Calc Drug Dose 62.3 ml/min Estimated GFR () 72.5 Estimated GFR (Non- 62.5 BUN/Creatinine Ratio 7.2 (10-20) Lactic Acid Level 1.5 mmol/L (0.4-2.0) Calcium Level 9.5 mg/dl (8.5-10.1) Magnesium Level 1.4 mg/dl (1.8-2.4) Total Bilirubin 0.4 mg/dl (0.2-1) Direct Bilirubin 0.1 mg/dl (0-0.2) Aspartate Amino Transf (AST/SGOT) 19 U/L (15-37) Alanine Aminotransferase (ALT/SGPT) 24 U/L (12-78) Alkaline Phosphatase 79 U/L (45-117) Ammonia 40.4 umol/L (11-32) Total Protein 7.1 gm/dl (6.4-8.2) Albumin 3.4 gm/dl (3.4-5.0) Lipase 108 U/L (73-393) Influenza Type A Antigen Neg for Influ A (NEG) Influenza Type B Antigen Neg for Influ B (NEG) Urine Color YELLOW Urine Appearance CLEAR (CLEAR) Urine pH 5.0 (4.5-7.5) Urine Specific [place] 1.019 (1.000-1.030) Urine Protein NEG (NEG) Urine Glucose (UA) NEG (NEG) Urine Ketones NEG (NEG) Urine Occult Blood NEG (NEG) Urine Nitrite NEG (NEG) Urine Bilirubin NEG (NEG) Urine Urobilinogen NEG (NEG) Urine Leukocyte Esterase TRACE (NEG) Urine WBC (Auto) 1-5 /hpf (0-5) Urine RBC (Auto) 0-4 /hpf (0-4) Urine Hyaline Casts (Auto) 1-5 /lpf (0-5) Urine Epithelial Cells (Auto) 20-30 /lpf (0-5) Urine Bacteria (Auto) NEG (NEG) Date/Time Source Procedure Growth Status 11/30/17 15:35 Stool C.difficile Toxin B Gene (PCR) - Final No C. difficile toxin B gene detected Complete Medications Administered Medications (Trade) Dose Ordered Sig/Tisha Route Start Time Stop Time Status Last Admin Dose Admin Sodium Chloride 1,000 ml @ 999 mls/hr Q1H1M STAT IV 11/30/17 13:01 11/30/17 14:01 DC 11/30/17 13:57 999 MLS/HR Albuterol/ Ipratropium (Duoneb) 3 ml NOW STAT INH 11/30/17 13:01 11/30/17 13:06 DC 11/30/17 13:58 3 ML Acetaminophen (Tylenol Tab) 1,000 mg NOW STAT PO 11/30/17 13:01 11/30/17 13:06 DC 11/30/17 13:57 1,000 MG Ondansetron HCl (Zofran Inj) 4 mg NOW STAT IV 11/30/17 13:01 11/30/17 13:06 DC 11/30/17 13:57 4 MG Morphine Sulfate (MoRPHine SULFATE INJ) 4 mg STK-MED ONCE .ROUTE 11/30/17 13:52 1/8/18 13:53 DC 11/30/17 13:57 4 MG Morphine Sulfate (MoRPHine SULFATE INJ) 2 mg STK-MED ONCE .ROUTE 11/30/17 13:52 11/30/17 13:53 DC 11/30/17 13:58 2 MG Dexamethasone Sodium Phosphate (Dexamethasone Inj Pf) 4 mg NOW ONCE IV 11/30/17 14:30 11/30/17 14:31 DC 11/30/17 14:48 4 MG Sodium Chloride 1,000 ml @ 999 mls/hr Q1H1M STAT IV 11/30/17 16:10 11/30/17 17:10 DC 11/30/17 16:43 999 MLS/HR Magnesium Sulfate (Magnesium Sulfate) 2 gm NOW STAT IV 11/30/17 16:22 11/30/17 16:24 DC 11/30/17 16:43 2 GM Morphine Sulfate (MoRPHine SULFATE INJ) 4 mg STK-MED ONCE .ROUTE 11/30/17 17:10 11/30/17 17:11 DC 11/30/17 17:13 4 MG ED Course The patient was evaluated. The patient EMR medication list were reviewed. IV access was obtained. The patient was given 1 L normal saline wide-open. CBC and differential, renal profile, blood cultures 2, magnesium, LFTs and lipase levels, ammonia level, lactic acid levels were ordered. Rapid strep was negative. Culture is pending.. Rapid influenza was negative for influenza A a and negative for influenza B.. Chest x-ray was ordered and interpreted by the radiologist and myself as above without any acute findings. Stool studies were ordered to include WBCs, C. difficile and culture. The patient was given morphine 6 mg IV, Zofran 4 mg IV push and Tylenol 1 g by mouth. The patient's labs are reviewed. The patient's white count was normal. The patient's hemoglobin and hematocrit were slightly low. The patient's potassium was low slightly low at 3.4. Ammonia level was elevated at 40.4. The patient was given his dexamethasone 4 mg IV. Urinalysis was negative. She was reevaluated on several occasions. The patient stated he was only feeling slightly better. He was given an additional liter of saline wide-open. His magnesium came back low at 1.4 therefore he was given 2 g of magnesium IV. He was still complaining of pain and therefore given additional 4 mg of morphine IV. The patient was finally able to give a stool sample. C. difficile was negative. Cultures are pending. Patient was reevaluated again after he had received a total of 2 L of normal saline as well as his magnesium and stated he was still feeling very weak. He states when he got up to go to the bathroom he felt off balance. He is still having diarrhea. He has had 3 loose bowel movements since giving the stool sample less than an hour ago. The patient was independently evaluated by Dr. Whalen who agreed with treatment plan. The hospitalist was consulted for admission. Medical Decision Differential diagnosis include Morehouse's flare, dehydration, acute colitis, influenza, strep pharyngitis, hypo-magnesemia, pneumonia, C. difficile Due to the patient's multiple chronic illnesses an elevated fever, flare of Matthew's and colitis and felt that he at least needed admitted for observation. [place] Drug Monitoring Program Search Results: patient reviewed within database Medication Reconcilliation Current Medication List: was personally reviewed by [place] Blood Pressure Screening Patient's blood pressure: Normal blood pressure Impression Primary Impression: Fever Additional Impressions: Tachycardia Dehydration Low magnesium level Addisonian crisis Departure Information Dispostion Being Evaluated By Hospitalist Condition GOOD Referrals Tony Lin D.ORuby (PCP) Patient Instructions My [facility] Problem Qualifiers Primary Impression: Fever Fever type: unspecified Qualified Codes: R50.9 - Fever, unspecified
--- NOTE | 2017-11-30 18:37 | EMERGENCY ROOM VISIT NOTE ---
ED Visit Note First contact with patient: 12:52 Patient was seen by our PA/STOCK DRIVER. I was involved in the patient's care and did evaluate the patient myself. I was involved in the care throughout the ER stay. The patient presents with a flulike illness. He is dehydrated clinically. His magnesium is quite low. He has received IV fluids and IV magnesium supplementation, he still feels poorly. He was noting palpitations at home and has been noting body aches. He was sent by his doctor to the ER for further evaluation. I do think a hospital stay for further IV hydration would be warranted. The patient likely has the flu or some other flulike illness. The on-call hospitalist has been consulted.
[2017-11-30] MEDS ORDERED: ONDANSETRON INJ 2 MG/ML 2 ML VIAL IV PRN (19:00)
[2017-11-30] MEDS ORDERED: AMIT25TA9 PO (19:06)
[2017-11-30] MEDS ORDERED: CHOL4POW11 PO (19:06)
[2017-11-30] MEDS ORDERED: LMTHP PO (19:06)
[2017-11-30] MEDS ORDERED: PANC6000 PO (19:06)
[2017-11-30] MEDS ORDERED: ALBUT/IPRATROP 3MG/0.5MG NEB 3 ML VIAL INH PRN (19:15)
[2017-11-30] MEDS ORDERED: GLUCOSE 40% GEL 15 GM TUBE PO PRN (19:30)
[2017-11-30] MEDS ORDERED: GLUCAGON FOR INJ 1 MG VIAL SQ PRN (19:30)
[2017-11-30] MEDS ORDERED: GLUCOSE 10 TABS/TUBE PO PRN (19:30)
[2017-11-30] MEDS ORDERED: DEXTROSE 50% 50 ML SYR IV PRN (19:30)
[2017-11-30] MEDS ORDERED: OPTIRAY 320 IV PRN (19:30)
--- NOTE | 2017-11-30 19:40 | History and Physical ---
History & Physical Date & Time of Service: Nov 30, 2017 at 19:21 Chief Complaint: Weakness, Body Aches, Fever Primary Care Physician: Tony Lin D.O. History of Present Illness 62 year old male who was sent from his PCPs office for evaluation of generalized weakness, body aches, and fever. Patient reports his symptoms started about 4 days ago. He was reports he recently traveled home from [place]. He has had a sore throat, sinus pressure, and productive cough. At his PCP's office today he had a temperature of 102. Patient also has history of collagenosus colitis and has chronic diarrhea however it has been worsening the past few days. He reports a poor appetite. He also has chronic lower abdominal pain which has been worsening the past few days as well, more tenderness on the left than the right. He denies chest pain and palpitations. He has been able to take his medicines. He denies lightheadedness, dizziness, diaphoresis, or syncopal events. 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 He reports his urine output has been down but denies any other urinary symptoms. In the ED, patient was tachycardic which improved with IVF. He has remained afebrile. Labs show a mild hypokalemia and hypomagnesemia. Patient was treated IM Decadron, IVF, IV morphine, IV Zofran , neb treatment, and IV Mg+ replacement. Past Medical/Surgical History Medical Problems: (1) Addisons disease Status: Chronic (2) C. difficile diarrhea Status: Chronic (3) CAD (coronary artery disease) Permanent Comment: 2001 - PCI to RCA 2003- PCI to OM1 Status: Chronic (4) Collagenous colitis Status: Chronic (5) COPD (chronic obstructive pulmonary disease) Status: Chronic (6) Depression with anxiety Status: Chronic (7) DM type 2 (diabetes mellitus, type 2) Status: Chronic (8) HLD (hyperlipidemia) Status: Chronic (9) HTN (hypertension) Status: Chronic Family History Diabetes mellitus FATHER MOTHER Social History Smoking Status: Current Every Day Smoker Alcohol Use: none Marital Status: Immunizations History of Influenza Vaccine: Yes Influenza Vaccine Date: Aug 26, 2017 History of Tetanus Vaccine?: Yes Tetanus Immunization Date: Aug 26, 2017 History of Pneumococcal: Yes Pneumococcal Date: Jan 21, 2010 Allergies Coded Allergies: Azathioprine (Verified Adverse Reaction, Unknown, RENAL COMPLICATIONS, 11/30) Home Medications Scheduled Amitriptyline Hcl (Elavil), 1 TAB PO HS Aspirin (Aspirin Chewable), 81 MG PO QAM Atorvastatin (Lipitor), 80 MG PO HS Cholestyramine (Questran), 4 GM PO BID Diphenoxylate/Atropine (Diphenoxylate/Atropine 2.5-0.025 mg), 1 TAB PO TID Fluoxetine HCl (Fluoxetine HCl), 20 MG PO QAM Fluticasone Furoate-Vilanterol (Breo Ellipta), 1 INHA PO DAILY Hydrocortisone (Cortef), 25 MG PO QAM Hydrocortisone (Cortef), 10 MG PO QDL Hydrocortisone (Cortef), 10 MG PO HS Insulin Glargine (Lantus), 10-20 UNITS SC UD Insulin Lispro (Human) (Humalog), SC ACHS Isosorbide Mononitrate Ext Rel (Imdur Ext Rel), 60 MG PO QAM Pancrelipase (Lipase-Protease- (Creon), 2 CAP PO TIDM Ranitidine Hcl (Zantac), 150 MG PO BID Tiotropium Gaines (Spiriva Handihaler), 1 CAP INH DAILY Scheduled PRN Albuterol Hfa (Ventolin Hfa), 3-4 PUFFS INH QID PRN for sob/wheezing Albuterol Sulf (Proventil 0.083% 2.5MG/3ML), 2.5 MG INH QID PRN for Wheezing Alprazolam (Xanax), 0.5 MG PO HS PRN for Sleep Dexamethasone Sod Phos (Dexamethasone Sodium Phos), 1 ML IM DIRECTED PRN for emergency treatment Hydroxyzine Hcl (Atarax), 50 MG PO HS PRN for Insomnia Ipratropium-Albuterol (Duoneb), 1 TREATMENT INH QID PRN for sob/wheezing Mirtazapine (Remeron), 30 MG PO HS PRN for Insomnia Review of Systems ROS per HPI, all other systems reviewed and negative Physical Exam Vital Signs Date Time Temp Pulse Resp B/P (MAP) Pulse Ox O2 Delivery O2 Flow Rate FiO2 11/30/17 18:18 36.6 73 18 118/80 93 Room Air 11/30/17 17:38 82 11/30/17 16:44 36.9 83 18 109/75 94 Room Air 11/30/17 15:43 37.0 11/30/17 14:49 36.5 102 18 120/70 93 Room Air 11/30/17 14:49 36.5 102 18 120/70 93 Room Air 11/30/17 13:33 101 11/30/17 12:48 37.5 123 18 136/76 97 Room Air General Appearance: WD/WN, no apparent distress Head: normocephalic, atraumatic Eyes: normal inspection, EOMI, sclerae normal ENT: hearing grossly normal, + pertinent finding (mucous membranes dry) Neck: supple, no JVD, trachea midline Respiratory/Chest: no respiratory distress, + decreased breath sounds Cardiovascular: regular rate, rhythm, no edema, normal peripheral pulses Abdomen/GI: normal bowel sounds, soft, no organomegaly, + tenderness (lower abdomen, more pronounced in the LLQ) Extremities/Musculoskelatal: normal inspection, no calf tenderness Neurologic/Psych: no motor/sensory deficits, alert, normal mood/affect, oriented x 3 Skin: normal color, warm/dry Diagnostics Laboratory Results Results Past 24 Hours Test 11/30/17 13:31 11/30/17 13:32 11/30/17 15:35 11/30/17 18:41 Range/Units White Blood Count 8.24 4.8-10.8 K/uL Red Blood Count 4.23 4.7-6.1 M/uL Hemoglobin 12.8 14.0-18.0 g/dL Hematocrit 38.0 42-52 % Mean Corpuscular Volume 89.8 80-100 fL Mean Corpuscular Hemoglobin 30.3 25-34 pg Mean Corpuscular Hemoglobin Concent 33.7 32-36 g/dl Platelet Count 189 130-400 K/uL Mean Platelet Volume 10.3 7.4-10.4 fL Neutrophils (%) (Auto) 69.3 % Lymphocytes (%) (Auto) 14.7 % Monocytes (%) (Auto) 14.1 % Eosinophils (%) (Auto) 1.1 % Basophils (%) (Auto) 0.2 % Neutrophils # (Auto) 5.71 1.4-6.5 K/uL Lymphocytes # (Auto) 1.21 1.2-3.4 K/uL Monocytes # (Auto) 1.16 0.11-0.59 K/uL Eosinophils # (Auto) 0.09 0-0.5 K/uL Basophils # (Auto) 0.02 0-0.2 K/uL RDW Standard Deviation 48.2 36.4-46.3 fL RDW Coefficient of Variation 15.0 11.5-14.5 % Immature Granulocyte % (Auto) 0.6 % Immature Granulocyte # (Auto) 0.05 0.00-0.02 K/uL Sodium Level 136 136-145 mmol/L Potassium Level 3.4 3.5-5.1 mmol/L Chloride Level 103 98-107 mmol/L Carbon Dioxide Level 23 21-32 mmol/L Anion Gap 10.0 3-11 mmol/L Blood Urea Nitrogen 9 7-18 mg/dl Creatinine 1.23 0.60-1.40 mg/dl Est Creatinine Clear Calc Drug Dose 62.3 ml/min Estimated GFR () 72.5 Estimated GFR (Non- 62.5 BUN/Creatinine Ratio 7.2 10-20 Random Glucose 85 70-99 mg/dl Lactic Acid Level 1.5 0.4-2.0 mmol/L Calcium Level 9.5 8.5-10.1 mg/dl Magnesium Level 1.4 1.8-2.4 mg/dl Total Bilirubin 0.4 0.2-1 mg/dl Direct Bilirubin 0.1 0-0.2 mg/dl Aspartate Amino Transf (AST/SGOT) 19 15-37 U/L Alanine Aminotransferase (ALT/SGPT) 24 12-78 U/L Alkaline Phosphatase 79 45-117 U/L Ammonia 40.4 11-32 umol/L Total Protein 7.1 6.4-8.2 gm/dl Albumin 3.4 3.4-5.0 gm/dl Lipase 108 73-393 U/L Influenza Type A Antigen Neg for Influ A NEG Influenza Type B Antigen Neg for Influ B NEG Urine Color YELLOW Urine Appearance CLEAR CLEAR Urine pH 5.0 4.5-7.5 Urine Specific [place] 1.019 1.000-1.030 Urine Protein NEG NEG Urine Glucose (UA) NEG NEG Urine Ketones NEG NEG Urine Occult Blood NEG NEG Urine Nitrite NEG NEG Urine Bilirubin NEG NEG Urine Urobilinogen NEG NEG Urine Leukocyte Esterase TRACE NEG Urine WBC (Auto) 1-5 0-5 /hpf Urine RBC (Auto) 0-4 0-4 /hpf Urine Hyaline Casts (Auto) 1-5 0-5 /lpf Urine Epithelial Cells (Auto) 20-30 0-5 /lpf Urine Bacteria (Auto) NEG NEG Test 11/30/17 19:03 Range/Units Microbiology Results 11/30/17 Blood Culture, Received Pending 11/30/17 Blood Culture, Received Pending 11/30/17 Group A Streptococcus Screen - Final, Resulted SPECIMEN NEGATIVE FOR GROUP A BETA ST... 11/30/17 Group A Streptococcus Screen (CECELIA), Resulted Pending 11/30/17 C.difficile Toxin B Gene (PCR) - Final, Complete No C. difficile toxin B gene detected 11/30/17 WBC Smear, Received Pending 11/30/17 Shiga Toxin Test, Received Pending 11/30/17 Stool Culture, Received Pending Diagnostic Radiology CXR IMPRESSION: No acute process. Impression Assessment and Plan FEBRILE ILLNESS HX EUSEBIO'S HX COLLAGENOUS COLITIS HYPOKALEMIA, HYPOMAGNESEMIA - admit to tele - patient presenting with 4 days of generalized weakness, body aches, fever, and sore throat - at PCP's office patient had a temp of 102 and was tachycardic - afebrile in the ED, HR improved with IVF - rapid flu and strep negative; will check flu PCR - no signs of pneumonia on CXR - given increased abdominal pain and diarrhea will check CT abd/pelvis - C. diff negative; stool culture pending - blood cultures - due to history of Douglass's and chronic steroid use, will start stress dose steroids hydrocortisone 50mg IV q8h; noted BP currently stable - continue supportive care with IVF, electrolyte replacement DM - Hgb a1c 7.3 08/2017 - Lantus + SSI CAD - stable, no reports of chest pain - continue ASA, nitrate, and statin ANXIETY, DEPRESSION - continue home meds DVT PROPHYLAXIS - SQ Lovenox DISPO - In my clinical judgment this beneficiary meets acute admission criteria, established by [facility], that includes being hospitalized through two midnights. Attending Addendum: The patient was seen and examined Recently back from [place] Travelled with [place] [employer] Flu symptoms with abd pain with nausea/vomiting and Diarrhea O/E Flashed facies Tachycardic but otherwise hemodynamically stable Chest-clear Heart-regular Abdomen-soft,mildly tender LLQ extremities-negative Labs and Imaging studies were reviewed Likely Flu-await further tests results Agree with the assessment and plan. Dr Marcio Bateman VTE Prophylaxis VTE Risk Assessment Done? Y/N: Yes Risk Level: Moderate
--- NOTE | 2017-11-30 19:43 | DIAGNOSTIC IMAGING REPORT ---
CT SCAN OF THE ABDOMEN AND PELVIS WITH IV CONTRAST CLINICAL HISTORY: Generalized abdominal pain. COMPARISON STUDY: Abdominal CT dated 09/13/2017. TECHNIQUE: Following the IV administration of 116 cc of Optiray 320, CT scan of the abdomen and pelvis is performed from the lung bases to the proximal femora. Images are reviewed in the axial, sagittal, and coronal planes. IV contrast was administered without complication. A dose lowering technique was utilized adhering to the principles of ALARA. CT DOSE: 386.65 mGy.cm FINDINGS: Lung bases: The heart is normal in size and without pericardial effusion. The lung bases are clear. Liver: The contrast-enhanced liver is normal in size, contour, and attenuation. There is no intrahepatic biliary ductal dilatation. The hepatic veins and portal veins are patent. Gallbladder: Unremarkable. Spleen: Normal in size and attenuation. Pancreas: Atrophic and grossly unremarkable. Adrenal glands: Unremarkable. Kidneys: The contrast enhanced kidneys demonstrate cortical atrophy and are without hydronephrosis. The kidneys enhance symmetrically. A 1.9 cm cyst is seen in the right upper pole. Additional subcentimeter cortical hypodensities also likely represent cysts but are too small for definitive characterization. Abdominal vasculature: There is advanced atherosclerotic calcification and ectasia of the abdominal aorta. Bowel: The small bowel and colon are normal in course and caliber. The appendix is well-visualized and normal. Peritoneum: There is no intraperitoneal free air or abdominal ascites. Lymphadenopathy: None. Pelvic viscera: The bladder, prostate, and seminal vesicles are normal as visualized. Skeletal structures: The skeletal structures are osteopenic. Mild lumbosacral spondylosis is observed. No lytic or blastic lesions are seen. There are healed left-sided rib fractures. IMPRESSION: There are no acute infectious or inflammatory findings in the abdomen or pelvis. Electronically signed by: Mauro Reynoso M.D. 11/30/2017 7:42 PM Dictated Date/Time: 11/30/2017 7:35 PM
[2017-11-30] MEDS ORDERED: PANCREAZE (LIPASE 10,500U) CAP PO PRN (19:45)
[2017-11-30] MEDS ORDERED: PHARMACY GLYCEMIC MGMT CONSULT PRN (19:46)
[2017-11-30 19:47] LABS: PTT PATIENT 24.7 SECONDS (21.0-31.0)
--- NOTE | 2017-11-30 19:56 | Pharmacy Progress Note ---
Glycemic Control Intl Consult Date of Service Nov 30, 2017. Scope Glycemic Pharmacist consulted by Seble Yang on 11/30/2017 for glycemic control and to write orders per [facility] inpatient glycemic control protocol Objective Weight (Kilograms): 77.700 Accuchecks BSG (last 24hrs): Test 11/30/17 13:31 Random Glucose 85 mg/dl (70-99) Laboratory Data (last 24hrs) Test 11/30/17 13:31 Anion Gap 10.0 mmol/L BUN/Creatinine Ratio 7.2 Blood Urea Nitrogen 9 mg/dl Creatinine 1.23 mg/dl Potassium Level 3.4 mmol/L Sodium Level 136 mmol/L White Blood Count 8.24 K/uL Red Blood Count 4.23 M/uL Hemoglobin 12.8 g/dL Hematocrit 38.0 % Mean Corpuscular Volume 89.8 fL Mean Corpuscular Hemoglobin 30.3 pg Mean Corpuscular Hemoglobin Concent 33.7 g/dl Platelet Count 189 K/uL Mean Platelet Volume 10.3 fL Neutrophils (%) (Auto) 69.3 % Lymphocytes (%) (Auto) 14.7 % Monocytes (%) (Auto) 14.1 % Eosinophils (%) (Auto) 1.1 % Basophils (%) (Auto) 0.2 % Neutrophils # (Auto) 5.71 K/uL Lymphocytes # (Auto) 1.21 K/uL Monocytes # (Auto) 1.16 K/uL Eosinophils # (Auto) 0.09 K/uL Basophils # (Auto) 0.02 K/uL Recent Pertinent Medications Outpatient Anti-diabetic Regimen: * Lantus 10-20 units/day plus Humalog * A1c = 7.6 % 05/24/17 Risk Factors for Insulin Resistance: * Steroids: dexamethasone 4 mg IV x 1 then hydrocortisone 50 mg IV q8 hours * Diet: clear liquid diet Assessment & Plan ASSESSMENT: * Mr Urbina is a 62 y/o M well known to the glycemic service and a PMH of Callaway's disease, COPD, and C diff who presents with a several day history of weakness. Typically while here and on oral steroids, the patient requires around 30 units/day (only around 5-7 units of Lantus per day). This does not change with IV steroids. There is no data on when patient received IV dexamethasone. * Since the patient received IV dexamethasone, will utilize a slightly higher dose of Lantus at 8 units plus an 0200 accucheck as uncertain if he will require more. For Novolog, will continue more aggressive regimen previously utilized. PLAN FOR INPATIENT GLYCEMIC CONTROL: * Basal insulin with LANTUS 8 units SQ HS * Correctional Insulin with NOVOLOG per scale ACHS or Q6hrs while NPO * Goal Range: Low 110 mg/dL - High 140 mg/dL * Correction Factor: 25 mg/dL/unit * Nutritional / Prandial insulin per carb ratio of 1 unit per 8 grams CHO consumed * Please note that the plan above was derived based on current level of insulin resistance and hospital stress. These recommendations are appropriate for inpatient admission only. Plan of care upon discharge will need to be reassessed to avoid potential outpatient hypo/hyperglycemia. Thank you.
[2017-11-30 20:20] VITALS: BP 128/86; PULSE 73; TEMP 36.3; O2SAT 96; Ht 175.3 cm; Wt 75.5 kg
[2017-11-30] MEDS ORDERED: POTASSIUM CHLORIDE 20 MEQ TABCR PO STA (20:29)
[2017-11-30] MEDS: MoRPHine SULFATE 4 MG/ML 1 ML CARP\\VIAL IV PRN (20:47)
[2017-11-30] MEDS ORDERED: INSULIN GLARGINE SOLOSTAR 100 UNITS/ML 3 ML PEN SC SCH ×2 (21:00)
[2017-11-30] MEDS: SODIUM CHLORIDE 0.9% 1000ML 1,000 ML IV SCH (21:34)
[2017-11-30] MEDS: RANITIDINE HCL 150 MG TAB PO SCH (21:35)
[2017-11-30] MEDS: HYDROCORTISONE IV 50 MG in SYRINGE 0 ML IV SCH (21:35)
[2017-11-30] MEDS: ATORVASTATIN 40 MG TAB PO SCH (21:35)
[2017-11-30] MEDS: AMITRIPTYLINE HCL 25 MG TAB PO SCH (21:35)
[2017-11-30] MEDS: CHOLESTYRAMINE LIGHT 4 GM PKT PO SCH (21:35)
[2017-11-30] MEDS: ENOXAPARIN 40 MG/0.4 ML SYR SC SCH (21:36)
[2017-11-30] MEDS: INSULIN ASPART 100 UNITS/ML 3 ML PEN SC SCH (21:41)
[2017-11-30] MEDS: ACETAMINOPHEN 325 MG TAB PO PRN (21:44)
[2017-11-30 23:35] VITALS: BP 125/74; PULSE 70; TEMP 36.4; O2SAT 95
[2017-12-01] VITALS (9 sets, daily range): BP systolic 110–154; BP diastolic 64–90; PULSE 53–78; TEMP 36.3–36.6; O2SAT 95–98
[2017-12-01 00:52] LABS: INFLUENZA A PCR POS for Influ A (NEG); INFLUENZA B PCR Neg for Influ B (NEG)
[2017-12-01] MEDS ORDERED: OSELTAMIVIR PHOSPHATE 75 MG CAP PO ONE (01:45)
[2017-12-01] MEDS ORDERED: INSULIN ASPART 100 UNITS/ML 3 ML PEN SC SCH (02:00)
[2017-12-01] MEDS: MoRPHine SULFATE 4 MG/ML 1 ML CARP\\VIAL IV PRN ×5 (02:05→21:47)
[2017-12-01] MEDS: HYDROCORTISONE IV 50 MG in SYRINGE 0 ML IV SCH ×3 (05:39→19:59)
[2017-12-01 06:47] LABS: HEMATOCRIT 35.9 % (42-52); HEMOGLOBIN 11.9 g/dL (14.0-18.0); MEAN CELL VOLUME 91.3 fL (80-100); MEAN CORPUSCULAR HEMOGLOBIN 30.3 pg (25-34); MEAN CORPUSCULAR HGB CONC 33.1 g/dl (32-36); MEAN PLATELET VOLUME 10.6 fL (7.4-10.4); PLATELET COUNT 172 K/uL (130-400); WHITE BLOOD COUNT 6.03 K/uL (4.8-10.8)
[2017-12-01 07:12] LABS: CREATININE 1.14 mg/dl (0.60-1.40); POTASSIUM 4.5 mmol/L (3.5-5.1)
[2017-12-01] MEDS: RANITIDINE HCL 150 MG TAB PO SCH ×2 (07:57→19:59)
[2017-12-01] MEDS: ISOSORBIDE MONONITRATE 60 MG TABCR PO SCH (07:57)
[2017-12-01] MEDS: ASPIRIN 81 MG ECTAB PO SCH (07:57)
[2017-12-01] MEDS: SODIUM CHLORIDE 0.9% 1000ML 1,000 ML IV SCH ×2 (07:57→19:57)
[2017-12-01] MEDS: FLUOXETINE HCL 20 MG CAP PO SCH (07:57)
[2017-12-01] MEDS: TIOTROPIUM BROMIDE 5 PUFF/90 MCG INH INH SCH (07:58)
[2017-12-01] MEDS: PANCREAZE (LIPASE 10,500U) CAP PO SCH ×3 (07:58→16:39)
[2017-12-01] MEDS: ACETAMINOPHEN 325 MG TAB PO PRN ×2 (07:59→23:55)
[2017-12-01] MEDS: INSULIN ASPART 100 UNITS/ML 3 ML PEN SC SCH ×4 (08:09→20:21)
[2017-12-01] MEDS ORDERED: INSULIN GLARGINE SOLOSTAR 100 UNITS/ML 3 ML PEN SC SCH ×2 (09:00→21:00)
[2017-12-01] MEDS: CHOLESTYRAMINE LIGHT 4 GM PKT PO SCH ×2 (09:44→21:47)
--- NOTE | 2017-12-01 13:19 | Clinical Documentation Query ---
CLINICAL DOCUMENTATION QUERY Dr. TALAVERA, In your clinical opinion is this patient being managed for: ( + ) Influenza A likely cause of fever ( ) Not Agree ( ) Other explanation of clinical findings (Please Explain) ( ) Unable to determine (Please Define) ( ) Need to Discuss The medical record reflects the following clinical findings, treatment, and risk factors. Clinical Indicators: 62 yo male presenting with fever, sore throat, dyspnea. Outpatient temp as high as 102 prior to ER presentation. Also with generalized weakness and achiness. Rapid Flu A and B both negative however Influenza A (RT-PCR) positive. Treatment: tamiflu, IV fluid boluses then continuous Risk Factors: age, Imperial's disease, recent airplane travel, COPD, DM Please clarify and document your clinical opinion in the progress notes and discharge summary. Terms such as "probable", "suspected", "likely", "questionable", "possible", or "still to be ruled out" are acceptable. IF IN AGREEMENT, YOU MUST DOCUMENT ABOVE DIAGNOSTIC STATEMENT IN DAILY PROGRESS NOTES AND DISCHARGE SUMMARY. This document is not part of the patient's record. Thank You, Beverly Shepherd RN [phone]
--- NOTE | 2017-12-01 13:34 | Pharmacy Progress Note ---
Glycemic: Assessment & Plan Date of Service Dec 01, 2017. Assessment & Plan The patient has been fairly basal sensitive in the past, now on IV hydrocortisone q8. * Basal insulin: Received Lantus 10 units this morning and will schedule a scale for tonight of 5 units if BSG > 220 and 0 units if BSG < 220 * Correctional Insulin: Novolog Correction per scale ACHS and 0000,0400 Goal Range: Low 110 mg/dL - High 140 mg/dL Correction Factor: 25 mg/dL/unit * Prandial insulin: Per carb ratio of 1 unit per 7 grams CHO consumed ( tightened from 1 unit per 8 grams) . Pharmacy will continue to monitor patient daily and write orders per [facility] inpatient glycemic control protocol. Thanks. * Please note that the plan above was derived based on current level of insulin resistance and hospital stress. These recommendations are appropriate for inpatient admission only. Plan of care upon discharge will need to be reassessed to avoid potential outpatient hypo/hyperglycemia.
--- NOTE | 2017-12-01 15:06 | Progress Note ---
Internal Med Progress Note Date of Service: Dec 01, 2017. Provider Documentation: SUBJECTIVE: The patient was seen and examined A little bit better today Less cough and body aches Has ongoing Diarrhea OBJECTIVE: Vital Signs-as noted below Exam: General-minimal distress at rest Eyes-Normal ENT-normal Neck-supple Lungs-Decreased breath sound with bilateral wheezing Heart-Regular,no murmur Abdomen-benign,no kaila Extremities-no edema Neuro-AAOx3 Lab data as noted below. ASSESSMENT & PLAN: Influenza A FEBRILE ILLNESS HX EUSEBIO'S HX COLLAGENOUS COLITIS HYPOKALEMIA, HYPOMAGNESEMIA - admit to tele - patient presenting with 4 days of generalized weakness, body aches, fever, and sore throat - at PCP's office patient had a temp of 102 and was tachycardic - afebrile in the ED, HR improved with IVF - no signs of pneumonia on CXR - CT abdomen -negative for any Diverticulitis - C. diff negative; stool culture pending-negative - blood cultures-pending - due to history of Eusebio's and chronic steroid use, will start stress dose steroids hydrocortisone 50mg IV q8h; noted BP currently stable - continue supportive care with IVF, electrolyte replacement -Clinically a little better Diarrhea Negative for C Diff and Stool culture Can have Antidiarrheal medication DM - Hgb a1c 7.3 08/2017 - Lantus + SSI CAD - stable, no reports of chest pain - continue ASA, nitrate, and statin ANXIETY, DEPRESSION - continue home meds DVT PROPHYLAXIS - SQ Lovenox DISPO - In my clinical judgment this beneficiary meets acute admission criteria, established by [facility], that includes being hospitalized through two midnights. Vital Signs: Date Time Temp Pulse Resp B/P (MAP) Pulse Ox O2 Delivery O2 Flow Rate FiO2 12/01/17 12:00 36.6 78 20 126/83 (97) 95 Room Air 12/01/17 11:50 Room Air 12/01/17 07:53 36.6 57 18 138/79 (98) 97 Room Air 12/01/17 07:30 Room Air 12/01/17 04:00 96 Room Air 12/01/17 03:35 36.4 73 17 110/64 (79) 96 Room Air 12/01/17 00:00 96 Room Air 11/30/17 23:35 36.4 70 18 125/74 (91) 95 Room Air 11/30/17 20:20 36.3 73 20 128/86 96 Room Air 11/30/17 19:38 36.5 70 18 115/78 96 Room Air 11/30/17 18:18 36.6 73 18 118/80 93 Room Air 11/30/17 17:38 82 11/30/17 16:44 36.9 83 18 109/75 94 Room Air 11/30/17 15:43 37.0 Lab Results: Results Past 24 Hours Test 11/30/17 15:35 11/30/17 20:33 12/01/17 01:56 12/01/17 06:06 Range/Units Urine Color YELLOW Urine Appearance CLEAR CLEAR Urine pH 5.0 4.5-7.5 Urine Specific [place] 1.019 1.000-1.030 Urine Protein NEG NEG Urine Glucose (UA) NEG NEG Urine Ketones NEG NEG Urine Occult Blood NEG NEG Urine Nitrite NEG NEG Urine Bilirubin NEG NEG Urine Urobilinogen NEG NEG Urine Leukocyte Esterase TRACE NEG Urine WBC (Auto) 1-5 0-5 /hpf Urine RBC (Auto) 0-4 0-4 /hpf Urine Hyaline Casts (Auto) 1-5 0-5 /lpf Urine Epithelial Cells (Auto) 20-30 0-5 /lpf Urine Bacteria (Auto) NEG NEG Bedside Glucose 188 212 70-99 mg/dl White Blood Count 6.03 4.8-10.8 K/uL Red Blood Count 3.93 4.7-6.1 M/uL Hemoglobin 11.9 14.0-18.0 g/dL Hematocrit 35.9 42-52 % Mean Corpuscular Volume 91.3 80-100 fL Mean Corpuscular Hemoglobin 30.3 25-34 pg Mean Corpuscular Hemoglobin Concent 33.1 32-36 g/dl RDW Standard Deviation 50.0 36.4-46.3 fL RDW Coefficient of Variation 15.0 11.5-14.5 % Platelet Count 172 130-400 K/uL Mean Platelet Volume 10.6 7.4-10.4 fL Sodium Level 138 136-145 mmol/L Potassium Level 4.5 3.5-5.1 mmol/L Chloride Level 109 98-107 mmol/L Carbon Dioxide Level 24 21-32 mmol/L Anion Gap 5.0 3-11 mmol/L Blood Urea Nitrogen 9 7-18 mg/dl Creatinine 1.14 0.60-1.40 mg/dl Est Creatinine Clear Calc Drug Dose 67.2 ml/min Estimated GFR () 79.4 Estimated GFR (Non- 68.5 BUN/Creatinine Ratio 7.7 10-20 Random Glucose 143 70-99 mg/dl Calcium Level 8.0 8.5-10.1 mg/dl Magnesium Level 2.0 1.8-2.4 mg/dl Hepatitis C Antibody Screen NEG NEG Test 12/01/17 06:13 12/01/17 11:10 Range/Units Bedside Glucose 151 223 70-99 mg/dl Microbiology Results 11/30/17 C.difficile Toxin B Gene (PCR) - Final, Complete No C. difficile toxin B gene detected 11/30/17 WBC Smear - Final, Resulted 11/30/17 Shiga Toxin Test - Preliminary, Resulted No E. Coli shiga toxin 1 or shiga tox... 11/30/17 Stool Culture - Preliminary, Resulted NO SALMONELLA ISOLATED TO DATE,...
[2017-12-01] MEDS ORDERED: LOPERAMIDE HCL 2 MG CAP PO PRN (15:15)
[2017-12-01] MEDS ORDERED: HYDROCODONE/HOMATROPINE SYRUP 5MG/1.5MG 5ML UDP PO ONE (16:14)
[2017-12-01] MEDS ORDERED: VANCOMYCIN INJ 2,000 MG in SODIUM CHLORIDE 0.9% 500ML 500 ML IV STA (17:58)
[2017-12-01] MEDS ORDERED: VANCOMYCIN CONSULT ACTIVE PRN (18:15)
[2017-12-01] MEDS: AMITRIPTYLINE HCL 25 MG TAB PO SCH (19:59)
[2017-12-01] MEDS: ATORVASTATIN 40 MG TAB PO SCH (19:59)
[2017-12-01] MEDS: OSELTAMIVIR PHOSPHATE 75 MG CAP PO SCH (20:00)
[2017-12-01] MEDS: ENOXAPARIN 40 MG/0.4 ML SYR SC SCH (20:00)
--- NOTE | 2017-12-01 20:03 | Pharmacy Progress Note ---
Pharmacy Abx Initial Consult Date of Service Dec 01, 2017. Pharmacy Dosing Scope Date of Consult: 12/01/17 Consultation requested by: Dr. Bateman Pharmacy is consulted to initiate Vancomycin IV dosing therapy, order appropriate labs and adjust drug dose/frequency. Subjective The patient is a 62 year old male admitted on Nov 30, 2017 at 18:59. Objective Height (Feet): 5 Height (Inches): 9.00 Weight (Kilograms): 77.000 Vital Signs (Past 12Hrs) Vital Signs Past 12 Hours Date Time Temp Pulse Resp B/P (MAP) Pulse Ox O2 Delivery O2 Flow Rate FiO2 12/01/17 19:21 36.4 66 20 154/90 (111) 98 Room Air 12/01/17 16:00 96 Room Air 12/01/17 15:18 36.3 65 18 137/84 (101) 96 Room Air 12/01/17 12:00 36.6 78 20 126/83 (97) 95 Room Air 12/01/17 11:50 Room Air 12/01/17 07:53 36.6 57 18 138/79 (98) 97 Room Air Lab Results (24Hrs) Laboratory Tests (24 Hours) Test 12/01/17 06:06 White Blood Count 6.03 K/uL (4.8-10.8) Micro Results Date/Time Source Procedure Growth Status 11/30/17 13:42 Blood Blood Culture - Preliminary Gram Positive Cocci Resulted 11/30/17 13:31 Blood Blood Culture - Preliminary Resulted 11/30/17 13:20 Throat Group A Streptococcus Screen - Final SPECIMEN NEGATIVE FOR GROUP A BETA ST... Resulted 11/30/17 13:20 Throat Group A Streptococcus Screen (CECELIA) - Preliminary NO BETA STREP ISOLATED TO DATE. Resulted 11/30/17 15:35 Stool C.difficile Toxin B Gene (PCR) - Final No C. difficile toxin B gene detected Complete 11/30/17 15:35 Stool WBC Smear - Final Resulted 11/30/17 15:35 Stool Shiga Toxin Test - Preliminary No E. Coli shiga toxin 1 or shiga tox... Resulted 11/30/17 15:35 Stool Stool Culture - Preliminary NO SALMONELLA ISOLATED TO DATE,... Resulted Risk Factors for Resistance * Hospitalization for 48 hours or more within the past 90 days (09/13-09/16/17) Assessment & Plan Assessment 62 year old male being started empirically on Vancomycin for empiric therapy, possible bacteremia. 1 of 2 blood cultures growing Gram positive cocci. Of note, patient currently hospitalized for influenza A treatment. * Renal function appears to be at baseline; sCr = 1.14 mg/dL with estimated CrCl ~67 mL/min. Estimated pharmacokinetic parameters: * Ke ~0.060/hr, T1/2 ~11.5 hrs * Pharmacy has dosed Vancomycin for this patient in the past. Following a loading dose of 1750mg, a maintenance regimen of 1000mg IV q12 produced an early trough level of 17.7 mcg/mL (not yet reflective of steady state). Therefore, will dose Vancomycin similarly this admission to target similar therapeutic concentrations. Plan Vancomycin IV * Loading dose: 2000 mg (~25 mg/kg) * Maintenance dose: 1000 mg IV (~13 mg/kg) every 12 hours * Goal trough level for possible bacteremia : 15 to 20 mcg/mL * Trough level NOT ordered at this time due to "empiric" indication chosen by provider at this time with blood cultures not yet finalized * Pharmacy will follow up with provider to determine if Vancomycin to be extended >48 hours; if so, trough level will be ordered as appropriate at that time to ensure therapeutic dosing Pharmacy will continue to follow and will adjust dose/frequency as necessary. Thank you.
[2017-12-02] VITALS (7 sets, daily range): BP systolic 142–186; BP diastolic 80–127; PULSE 51–66; TEMP 36.4–36.7; O2SAT 95–96
[2017-12-02] MEDS ORDERED: INSULIN ASPART 100 UNITS/ML 3 ML PEN SC SCH
[2017-12-02] MEDS: HYDROCODONE/HOMATROPINE SYRUP 5MG/1.5MG 5ML UDP PO PRN ×3 (04:47→23:29)
[2017-12-02] MEDS: MoRPHine SULFATE 4 MG/ML 1 ML CARP\\VIAL IV PRN ×4 (04:49→20:37)
[2017-12-02] MEDS: HYDROCORTISONE IV 50 MG in SYRINGE 0 ML IV SCH ×3 (06:12→20:43)
[2017-12-02] MEDS: VANCOMYCIN INJ 1,000 MG in SODIUM CHLORIDE 0.9% 250ML 250 ML IV SCH ×2 (06:13→19:27)
[2017-12-02 07:41] LABS: CALCIUM 7.9 mg/dl (8.5-10.1); CREATININE 1.09 mg/dl (0.60-1.40); POTASSIUM 3.9 mmol/L (3.5-5.1)
[2017-12-02 07:42] LABS: PHOSPHORUS 2.4 mg/dl (2.5-4.9)
[2017-12-02] MEDS: PANCREAZE (LIPASE 10,500U) CAP PO SCH ×3 (08:21→16:14)
[2017-12-02] MEDS: TIOTROPIUM BROMIDE 5 PUFF/90 MCG INH INH SCH (08:22)
[2017-12-02] MEDS: ASPIRIN 81 MG ECTAB PO SCH (08:22)
[2017-12-02] MEDS: FLUOXETINE HCL 20 MG CAP PO SCH (08:23)
[2017-12-02] MEDS: ISOSORBIDE MONONITRATE 60 MG TABCR PO SCH (08:23)
[2017-12-02] MEDS: RANITIDINE HCL 150 MG TAB PO SCH ×2 (08:23→19:30)
[2017-12-02] MEDS: OSELTAMIVIR PHOSPHATE 75 MG CAP PO SCH ×2 (08:23→19:30)
[2017-12-02] MEDS: INSULIN ASPART 100 UNITS/ML 3 ML PEN SC SCH ×4 (08:29→20:40)
[2017-12-02] MEDS: SODIUM CHLORIDE 0.9% 1000ML 1,000 ML IV SCH (08:33)
--- NOTE | 2017-12-02 08:41 | DIAGNOSTIC IMAGING REPORT ---
CHEST 2 VIEWS ROUTINE CLINICAL HISTORY: copd/Pneumonia COMPARISON STUDY: No previous studies for comparison. FINDINGS: The bones soft tissues and hemidiaphragms are normal. The cardiomediastinal silhouette is normal. The lungs are clear. The pulmonary vasculature is normal. IMPRESSION: Negative chest. The above report was generated using voice recognition software. It may contain grammatical, syntax or spelling errors. Electronically signed by: Drew Chow M.D. 12/02/2017 8:40 AM Dictated Date/Time: 12/02/2017 8:38 AM
[2017-12-02] MEDS ORDERED: POTASSIUM PHOS 3 MMOL/1 ML INFUSION IV STA (08:46)
[2017-12-02] MEDS ORDERED: POTASSIUM PHOSPHATE INJ 24 MMOL in SODIUM CHLORIDE 0.9% 500ML 500 ML IV ONE (09:15)
[2017-12-02] MEDS ORDERED: MAGNESIUM SULFATE 1GM / D5W 1 GM in PREMIXED IN D5W 100 ML IV ONE (09:15)
[2017-12-02] MEDS ORDERED: DICYCLOMINE HCL 10 MG CAP PO ONE (09:18)
[2017-12-02] MEDS: CHOLESTYRAMINE LIGHT 4 GM PKT PO SCH ×2 (10:42→20:43)
[2017-12-02] MEDS: INSULIN GLARGINE SOLOSTAR 100 UNITS/ML 3 ML PEN SC SCH (10:52)
[2017-12-02] MEDS: DICYCLOMINE HCL 10 MG CAP PO SCH ×3 (12:44→19:31)
--- NOTE | 2017-12-02 13:51 | Pharmacy Progress Note ---
Glycemic: Assessment & Plan Date of Service Dec 02, 2017. Assessment & Plan The patient is currently receiving 43 units of insulin per day. BSGs ranging 119 - 223 mg/dl over the past 24hrs. * Basal insulin: Decrease Lantus from10 units to 5 units qam * Correctional Insulin: Novolog Correction per scale ACHS Goal Range: Low 110 mg/dL - High 140 mg/dL Correction Factor: 25 mg/dL/unit * Prandial insulin: Per carb ratio of 1 unit per 7 grams CHO consumed Pharmacy will continue to monitor patient daily and write orders per [facility] inpatient glycemic control protocol. Thanks. * Please note that the plan above was derived based on current level of insulin resistance and hospital stress. These recommendations are appropriate for inpatient admission only. Plan of care upon discharge will need to be reassessed to avoid potential outpatient hypo/hyperglycemia.
[2017-12-02] MEDS ORDERED: CLONIDINE HCL 0.1 MG TAB PO PRN (14:45)
--- NOTE | 2017-12-02 16:23 | Progress Note ---
Internal Med Progress Note Date of Service: Dec 02, 2017. Provider Documentation: SUBJECTIVE: The patient was seen and examined A little bit better today Less cough and body aches Has ongoing Diarrhea-not any better today OBJECTIVE: Vital Signs-as noted below Exam: General-minimal distress at rest Eyes-Normal ENT-normal Neck-supple Lungs-Decreased breath sound with bilateral wheezing Heart-Regular,no murmur Abdomen-benign,no kaila Extremities-no edema Neuro-AAOx3 Lab data as noted below. ASSESSMENT & PLAN: Influenza A:Causing fever HX EUSEBIO'S HX COLLAGENOUS COLITIS HYPOKALEMIA, HYPOMAGNESEMIA-secondary to diarrhea - admit to tele - patient presenting with 4 days of generalized weakness, body aches, fever, and sore throat - at PCP's office patient had a temp of 102 and was tachycardic - afebrile in the ED, HR improved with IVF - no signs of pneumonia on CXR - CT abdomen -negative for any Diverticulitis - C. diff negative; stool culture pending-negative - blood cultures-one bottle is growing Gm Negative Staph ,2nd bottle is negative .Likely contaminant - due to history of [place]'s and chronic steroid use, will start stress dose steroids hydrocortisone 50mg IV q8h; noted BP currently stable -Started on IV Vancomycin imperically -will stop tomorrow - continue supportive care with IVF, electrolyte replacement -Clinically much better without any signs of infection -Likely discharge tomorrow Diarrhea Negative for C Diff and Stool culture Can have Antidiarrheal medication Started on Bentyl Electrolytes replaced DM - Hgb a1c 7.3 08/2017 - Lantus + SSI CAD - stable, no reports of chest pain - continue ASA, nitrate, and statin ANXIETY, DEPRESSION - continue home meds DVT PROPHYLAXIS - SQ Lovenox DISPO -Likely discharge tomorrow Vital Signs: Date Time Temp Pulse Resp B/P (MAP) Pulse Ox O2 Delivery O2 Flow Rate FiO2 12/02/17 15:20 36.5 58 20 173/110 (131) 96 Room Air 186/127 (146) 12/02/17 12:00 Room Air 12/02/17 11:34 36.7 66 19 173/91 (118) 96 Nasal Cannula 3.0 12/02/17 08:03 36.5 65 19 161/95 (117) 95 Room Air 12/02/17 08:00 Room Air 12/02/17 04:00 Room Air 12/02/17 03:40 36.4 60 17 142/80 (100) 96 Room Air 12/01/17 23:59 Room Air 12/01/17 23:35 36.5 53 18 123/76 (92) 96 Room Air 12/01/17 20:00 Room Air 12/01/17 19:21 36.4 66 20 154/90 (111) 98 Room Air Lab Results: Results Past 24 Hours Test 12/01/17 20:16 12/01/17 23:56 12/02/17 04:23 12/02/17 06:21 Range/Units Bedside Glucose 211 115 139 121 70-99 mg/dl Test 12/02/17 06:31 12/02/17 11:20 12/02/17 15:56 Range/Units Sodium Level 140 136-145 mmol/L Potassium Level 3.9 3.5-5.1 mmol/L Chloride Level 112 98-107 mmol/L Carbon Dioxide Level 24 21-32 mmol/L Anion Gap 4.0 3-11 mmol/L Blood Urea Nitrogen 10 7-18 mg/dl Creatinine 1.09 0.60-1.40 mg/dl Est Creatinine Clear Calc Drug Dose 70.3 ml/min Estimated GFR () 83.9 Estimated GFR (Non- 72.4 BUN/Creatinine Ratio 9.0 10-20 Random Glucose 108 70-99 mg/dl Calcium Level 7.9 8.5-10.1 mg/dl Phosphorus Level 2.4 2.5-4.9 mg/dl Magnesium Level 1.6 1.8-2.4 mg/dl Bedside Glucose 171 110 70-99 mg/dl
[2017-12-02] MEDS: AMITRIPTYLINE HCL 25 MG TAB PO SCH (19:30)
[2017-12-02] MEDS: ATORVASTATIN 40 MG TAB PO SCH (19:30)
[2017-12-02] MEDS: ENOXAPARIN 40 MG/0.4 ML SYR SC SCH (20:43)
[2017-12-03] VITALS (7 sets, daily range): BP systolic 140–180; BP diastolic 79–94; PULSE 51–81; TEMP 36.4–36.8; O2SAT 95–97
[2017-12-03] MEDS: MoRPHine SULFATE 4 MG/ML 1 ML CARP\\VIAL IV PRN ×6 (00:41→23:44)
[2017-12-03] MEDS: SODIUM CHLORIDE 0.9% 1000ML 1,000 ML IV SCH ×2 (05:26→08:58)
[2017-12-03] MEDS: VANCOMYCIN INJ 1,000 MG in SODIUM CHLORIDE 0.9% 250ML 250 ML IV SCH (05:26)
[2017-12-03] MEDS: HYDROCORTISONE IV 50 MG in SYRINGE 0 ML IV SCH (05:27)
[2017-12-03 06:58] LABS: HEMOGLOBIN 12.9 g/dL (14.0-18.0); MEAN CELL VOLUME 90.9 fL (80-100); MEAN CORPUSCULAR HEMOGLOBIN 30.9 pg (25-34); MEAN CORPUSCULAR HGB CONC 33.9 g/dl (32-36); MEAN PLATELET VOLUME 10.7 fL (7.4-10.4); PLATELET COUNT 189 K/uL (130-400); RED CELL DISTRIBUTION WIDTH CV 15.1 % (11.5-14.5); RED CELL DISTRIBUTION WIDTH SD 49.9 fL (36.4-46.3); WHITE BLOOD COUNT 13.35 K/uL (4.8-10.8)
[2017-12-03] MEDS: OSELTAMIVIR PHOSPHATE 75 MG CAP PO SCH ×2 (07:24→19:11)
[2017-12-03] MEDS: RANITIDINE HCL 150 MG TAB PO SCH ×2 (07:25→19:10)
[2017-12-03] MEDS: PANCREAZE (LIPASE 10,500U) CAP PO SCH ×3 (07:25→17:08)
[2017-12-03] MEDS: FLUOXETINE HCL 20 MG CAP PO SCH (07:25)
[2017-12-03] MEDS: ISOSORBIDE MONONITRATE 60 MG TABCR PO SCH (07:25)
[2017-12-03] MEDS: ASPIRIN 81 MG ECTAB PO SCH (07:25)
[2017-12-03] MEDS: DICYCLOMINE HCL 10 MG CAP PO SCH ×4 (07:26→19:09)
[2017-12-03] MEDS: TIOTROPIUM BROMIDE 5 PUFF/90 MCG INH INH SCH (07:26)
[2017-12-03 07:33] LABS: CALCIUM 8.2 mg/dl (8.5-10.1); CREATININE 0.99 mg/dl (0.60-1.40); PHOSPHORUS 2.5 mg/dl (2.5-4.9); POTASSIUM 3.1 mmol/L (3.5-5.1)
[2017-12-03] MEDS: INSULIN ASPART 100 UNITS/ML 3 ML PEN SC SCH ×4 (07:33→20:56)
[2017-12-03] MEDS: INSULIN GLARGINE SOLOSTAR 100 UNITS/ML 3 ML PEN SC SCH (07:33)
[2017-12-03] MEDS ORDERED: POTASSIUM CHLORIDE 10 MEQ TABCR PO ONE (08:30)
[2017-12-03] MEDS ORDERED: POTASSIUM CHLR 10 MEQ / WTR 10 MEQ in PREMIXED WATER 100 ML IV ONE (08:30)
[2017-12-03] MEDS ORDERED: MAGNESIUM SULFATE 1GM / D5W 1 GM in PREMIXED IN D5W 100 ML IV ONE (08:30)
[2017-12-03] MEDS: HYDROCODONE/HOMATROPINE SYRUP 5MG/1.5MG 5ML UDP PO PRN ×2 (09:04→23:44)
[2017-12-03] MEDS ORDERED: MAGNESIUM CHLORIDE 64MG DELAYED REL TAB PO ONE (09:45)
[2017-12-03] MEDS: HYDROCORTISONE 10 MG TAB PO SCH (10:22)
[2017-12-03] MEDS: CHOLESTYRAMINE LIGHT 4 GM PKT PO SCH ×2 (10:25→20:50)
--- NOTE | 2017-12-03 15:02 | Progress Note ---
Internal Med Progress Note Date of Service: Dec 03, 2017. Provider Documentation: SUBJECTIVE: The patient was seen and examined A little bit better today Less cough and body aches Has ongoing Diarrhea-not any better today Remains electrolytes depleted Not yet ready to be discharged OBJECTIVE: Vital Signs-as noted below Exam: General-minimal distress at rest Eyes-Normal ENT-normal Neck-supple Lungs-Decreased breath sound with bilateral wheezing Heart-Regular,no murmur Abdomen-benign,no kaila Extremities-no edema Neuro-AAOx3 Lab data as noted below. ASSESSMENT & PLAN: Influenza A:Causing fever HX EUSEBIO'S HX COLLAGENOUS COLITIS HYPOKALEMIA, HYPOMAGNESEMIA-secondary to diarrhea - admit to tele - patient presenting with 4 days of generalized weakness, body aches, fever, and sore throat - at PCP's office patient had a temp of 102 and was tachycardic - afebrile in the ED, HR improved with IVF - no signs of pneumonia on CXR - CT abdomen -negative for any Diverticulitis - C. diff negative; stool culture pending-negative - blood cultures-one bottle is growing Gm Negative Staph ,2nd bottle is negative .Likely contaminant - due to history of [place]'s and chronic steroid use, will start stress dose steroids hydrocortisone 50mg IV q8h; noted BP currently stable -Started on IV Vancomycin imperically -will stop tomorrow - continue supportive care with IVF, electrolyte replacement -Clinically much better without any signs of infection -Moderately SOB on minimal exertion Diarrhea Negative for C Diff and Stool culture Can have Antidiarrheal medication Started on Bentyl Electrolytes replaced again today Generally weak DM - Hgb a1c 7.3 08/2017 - Lantus + SSI CAD - stable, no reports of chest pain - continue ASA, nitrate, and statin ANXIETY, DEPRESSION - continue home meds DVT PROPHYLAXIS - SQ Lovenox DISPO -Likely discharge tomorrow Vital Signs: Date Time Temp Pulse Resp B/P (MAP) Pulse Ox O2 Delivery O2 Flow Rate FiO2 12/03/17 12:00 Room Air 12/03/17 11:57 36.8 58 20 142/92 (109) 96 Room Air 12/03/17 08:58 79 158/89 (112) 12/03/17 08:03 36.5 54 18 180/94 (122) 95 Room Air 12/03/17 08:00 Room Air 12/03/17 04:00 Room Air 12/03/17 03:50 36.4 51 18 147/90 (109) 96 Room Air 12/02/17 23:59 Room Air 12/02/17 23:30 36.4 51 18 150/84 (106) 96 Room Air 12/02/17 20:00 Room Air 12/02/17 19:05 36.6 57 18 162/98 (119) 96 Room Air 12/02/17 17:10 157/94 (115) 12/02/17 16:00 Room Air 12/02/17 15:20 36.5 58 20 173/110 (131) 96 Room Air 186/127 (146) Lab Results: Results Past 24 Hours Test 12/02/17 15:56 12/02/17 20:07 12/03/17 06:14 12/03/17 06:40 Range/Units Bedside Glucose 110 211 133 70-99 mg/dl White Blood Count 13.35 4.8-10.8 K/uL Red Blood Count 4.18 4.7-6.1 M/uL Hemoglobin 12.9 14.0-18.0 g/dL Hematocrit 38.0 42-52 % Mean Corpuscular Volume 90.9 80-100 fL Mean Corpuscular Hemoglobin 30.9 25-34 pg Mean Corpuscular Hemoglobin Concent 33.9 32-36 g/dl RDW Standard Deviation 49.9 36.4-46.3 fL RDW Coefficient of Variation 15.1 11.5-14.5 % Platelet Count 189 130-400 K/uL Mean Platelet Volume 10.7 7.4-10.4 fL Sodium Level 139 136-145 mmol/L Potassium Level 3.1 3.5-5.1 mmol/L Chloride Level 101 98-107 mmol/L Carbon Dioxide Level 31 21-32 mmol/L Anion Gap 7.0 3-11 mmol/L Blood Urea Nitrogen 12 7-18 mg/dl Creatinine 0.99 0.60-1.40 mg/dl Est Creatinine Clear Calc Drug Dose 77.4 ml/min Estimated GFR () 94.2 Estimated GFR (Non- 81.3 BUN/Creatinine Ratio 11.7 10-20 Random Glucose 122 70-99 mg/dl Calcium Level 8.2 8.5-10.1 mg/dl Phosphorus Level 2.5 2.5-4.9 mg/dl Magnesium Level 1.5 1.8-2.4 mg/dl Test 12/03/17 11:12 Range/Units Bedside Glucose 147 70-99 mg/dl
[2017-12-03] MEDS: MAGNESIUM CHLORIDE 64MG DELAYED REL TAB PO SCH (19:10)
[2017-12-03] MEDS: ATORVASTATIN 40 MG TAB PO SCH (19:11)
[2017-12-03] MEDS: AMITRIPTYLINE HCL 25 MG TAB PO SCH (19:11)
[2017-12-03] MEDS: ENOXAPARIN 40 MG/0.4 ML SYR SC SCH (20:50)
[2017-12-03] MEDS ORDERED: HYDROCORTISONE 10 MG TAB PO SCH (21:00)
[2017-12-04 03:45] VITALS: BP 157/91; PULSE 54; TEMP 36.6; O2SAT 95
[2017-12-04 08:24] VITALS: BP 132/84; PULSE 87; TEMP 36.9; O2SAT 90
[2017-12-04] MEDS: HYDROCORTISONE 10 MG TAB PO SCH (09:25)
[2017-12-04] MEDS: FLUOXETINE HCL 20 MG CAP PO SCH (09:25)
[2017-12-04] MEDS: ISOSORBIDE MONONITRATE 60 MG TABCR PO SCH (09:26)
[2017-12-04] MEDS: MAGNESIUM CHLORIDE 64MG DELAYED REL TAB PO SCH (09:26)
[2017-12-04] MEDS: PANCREAZE (LIPASE 10,500U) CAP PO SCH ×3 (09:26→17:15)
[2017-12-04] MEDS: RANITIDINE HCL 150 MG TAB PO SCH (09:26)
[2017-12-04] MEDS: OSELTAMIVIR PHOSPHATE 75 MG CAP PO SCH (09:26)
[2017-12-04] MEDS: DICYCLOMINE HCL 10 MG CAP PO SCH ×3 (09:26→17:15)
[2017-12-04] MEDS: ASPIRIN 81 MG ECTAB PO SCH (09:26)
[2017-12-04] MEDS: TIOTROPIUM BROMIDE 5 PUFF/90 MCG INH INH SCH (09:27)
[2017-12-04] MEDS: INSULIN GLARGINE SOLOSTAR 100 UNITS/ML 3 ML PEN SC SCH (09:32)
[2017-12-04] MEDS: INSULIN ASPART 100 UNITS/ML 3 ML PEN SC SCH ×3 (09:32→17:19)
[2017-12-04] MEDS ORDERED: COUGH DROP (SUGAR FREE) LOZ 24 LOZ/1 BOX ONE (09:40)
[2017-12-04] MEDS: HYDROCODONE/HOMATROPINE SYRUP 5MG/1.5MG 5ML UDP PO PRN (09:41)
[2017-12-04] MEDS ORDERED: NURSING DECISION MEDICATION ORDER SCH (09:45)
[2017-12-04 10:00] LABS: HEMATOCRIT 42.8 % (42-52); MEAN CELL VOLUME 91.1 fL (80-100); MEAN CORPUSCULAR HEMOGLOBIN 29.8 pg (25-34); MEAN CORPUSCULAR HGB CONC 32.7 g/dl (32-36); PLATELET COUNT 192 K/uL (130-400); RED CELL DISTRIBUTION WIDTH CV 14.9 % (11.5-14.5); RED CELL DISTRIBUTION WIDTH SD 49.7 fL (36.4-46.3); WHITE BLOOD COUNT 13.65 K/uL (4.8-10.8)
[2017-12-04] MEDS ORDERED: COUGH DROP (SUGAR FREE) LOZ 24 LOZ/1 BOX PO PRN (10:00)
[2017-12-04 10:16] LABS: CALCIUM 8.4 mg/dl (8.5-10.1); CREATININE 1.34 mg/dl (0.60-1.40); POTASSIUM 3.1 mmol/L (3.5-5.1)
[2017-12-04 10:28] LABS: PHOSPHORUS 1.6 mg/dl (2.5-4.9)
[2017-12-04] MEDS ORDERED: POTASSIUM PHOS 3 MMOL/1 ML INFUSION IV STA (10:31)
[2017-12-04] MEDS ORDERED: MAGNESIUM SULFATE 1GM / D5W 1 GM in PREMIXED IN D5W 100 ML IV ONE (11:00)
[2017-12-04] MEDS ORDERED: POTASSIUM CHLORIDE 10 MEQ TABCR PO ONE (11:15)
[2017-12-04] MEDS ORDERED: POTASSIUM PHOSPHATE INJ 30 MMOL in SODIUM CHLORIDE 0.9% 500ML 500 ML IV ONE (11:15)
[2017-12-04] MEDS: CHOLESTYRAMINE LIGHT 4 GM PKT PO SCH (11:28)
--- NOTE | 2017-12-04 12:24 | Pharmacy Progress Note ---
Glycemic: Assessment & Plan Date of Service Dec 04, 2017. Assessment & Plan The patient is currently receiving ~40 units of insulin per day. BSGs ranging 133 - 192 mg/dl over the past 24hrs. * Basal insulin: Lantus 5 units every morning * Correctional Insulin: Novolog Correction per scale ACHS Goal Range: Low 110 mg/dL - High 140 mg/dL Correction Factor: 25 mg/dL/unit * Prandial insulin: Per carb ratio of 1 unit per 7 grams CHO consumed BSGs continue to improve, no changes needed to inpatient regimen at this time. Pharmacy will continue to monitor patient daily and write orders per [facility] inpatient glycemic control protocol. Thanks. * Please note that the plan above was derived based on current level of insulin resistance and hospital stress. These recommendations are appropriate for inpatient admission only. Plan of care upon discharge will need to be reassessed to avoid potential outpatient hypo/hyperglycemia.
[2017-12-04 12:52] VITALS: BP 115/87; PULSE 86; TEMP 36.7; O2SAT 94
[2017-12-04] MEDS ORDERED: DOXYCYCLINE HYCLATE 100 MG CAP PO ONE (13:37)
--- NOTE | 2017-12-04 13:37 | Progress Note ---
Internal Med Progress Note Date of Service: Dec 04, 2017. Provider Documentation: SUBJECTIVE: The patient was seen and examined Much better today Breathing and diarrhea are better Wants to go home Has yellowish sputum production OBJECTIVE: Vital Signs-as noted below Exam: General-No distress at rest Eyes-Normal ENT-normal Neck-supple Lungs-Decreased breath sound with bilateral wheezing Heart-Regular,no murmur Abdomen-benign,no kaila Extremities-no edema Neuro-AAOx3 Lab data as noted below. ASSESSMENT & PLAN: Influenza A:Causing fever HX EUSEBIO'S HX COLLAGENOUS COLITIS HYPOKALEMIA, HYPOMAGNESEMIA-secondary to diarrhea - admit to tele - patient presenting with 4 days of generalized weakness, body aches, fever, and sore throat - at PCP's office patient had a temp of 102 and was tachycardic - afebrile in the ED, HR improved with IVF - no signs of pneumonia on CXR - CT abdomen -negative for any Diverticulitis - C. diff negative; stool culture pending-negative - blood cultures-one bottle is growing Gm Negative Staph ,2nd bottle is negative .Likely contaminant - due to history of [place]'s and chronic steroid use, will start stress dose steroids hydrocortisone 50mg IV q8h; noted BP currently stable -Started on IV Vancomycin imperically -will stop tomorrow - continue supportive care with IVF, electrolyte replacement -Clinically much better without any signs of infection -Moderately SOB on minimal exertion -Repeat CXR negative for any pneumonia -may have bronchitis -will start oral antibiotics Diarrhea with Electrolytes Imbalance Negative for C Diff and Stool culture Can have Antidiarrheal medication Started on Bentyl Electrolytes replaced again today Generally weak Better today DM - Hgb a1c 7.3 08/2017 - Lantus + SSI CAD - stable, no reports of chest pain - continue ASA, nitrate, and statin ANXIETY, DEPRESSION - continue home meds DVT PROPHYLAXIS - SQ Lovenox DISPO -Likely discharge in a day or two Vital Signs: Date Time Temp Pulse Resp B/P (MAP) Pulse Ox O2 Delivery O2 Flow Rate FiO2 12/04/17 12:52 36.7 86 20 115/87 (96) 94 Room Air 12/04/17 12:05 Room Air 12/04/17 08:24 36.9 87 16 132/84 (100) 90 Room Air 12/04/17 08:00 Room Air 12/04/17 04:00 Room Air 12/04/17 03:45 36.6 54 18 157/91 (113) 95 Room Air 12/03/17 23:45 Room Air 12/03/17 23:38 36.7 60 18 154/79 (104) 96 Room Air 12/03/17 20:00 Room Air 12/03/17 19:00 36.6 63 20 156/92 (113) 96 Room Air 12/03/17 16:00 Room Air 12/03/17 15:31 36.7 63 24 140/88 (105) 97 Room Air Lab Results: Results Past 24 Hours Test 12/03/17 16:06 12/03/17 20:22 12/04/17 06:41 12/04/17 09:14 Range/Units Bedside Glucose 192 160 138 70-99 mg/dl White Blood Count 13.65 4.8-10.8 K/uL Red Blood Count 4.70 4.7-6.1 M/uL Hemoglobin 14.0 14.0-18.0 g/dL Hematocrit 42.8 42-52 % Mean Corpuscular Volume 91.1 80-100 fL Mean Corpuscular Hemoglobin 29.8 25-34 pg Mean Corpuscular Hemoglobin Concent 32.7 32-36 g/dl RDW Standard Deviation 49.7 36.4-46.3 fL RDW Coefficient of Variation 14.9 11.5-14.5 % Platelet Count 192 130-400 K/uL Mean Platelet Volume 11.0 7.4-10.4 fL Sodium Level 138 136-145 mmol/L Potassium Level 3.1 3.5-5.1 mmol/L Chloride Level 99 98-107 mmol/L Carbon Dioxide Level 32 21-32 mmol/L Anion Gap 7.0 3-11 mmol/L Blood Urea Nitrogen 18 7-18 mg/dl Creatinine 1.34 0.60-1.40 mg/dl Est Creatinine Clear Calc Drug Dose 57.2 ml/min Estimated GFR () 65.3 Estimated GFR (Non- 56.4 BUN/Creatinine Ratio 13.7 10-20 Random Glucose 201 70-99 mg/dl Calcium Level 8.4 8.5-10.1 mg/dl Phosphorus Level 1.6 2.5-4.9 mg/dl Magnesium Level 1.5 1.8-2.4 mg/dl
[2017-12-04 15:12] VITALS: BP 127/80; PULSE 71; TEMP 36.7; O2SAT 98
[2017-12-04 15:49] LABS: CALCIUM 8.2 mg/dl (8.5-10.1); CREATININE 1.23 mg/dl (0.60-1.40); PHOSPHORUS 3.3 mg/dl (2.5-4.9); POTASSIUM 3.9 mmol/L (3.5-5.1)
[2017-12-04] MEDS ORDERED: MCRK20 PO (16:32)
[2017-12-04] MEDS ORDERED: SLWMEC PO (16:32)
[2017-12-04] MEDS ORDERED: DXY100 PO (16:32)
--- NOTE | 2017-12-04 16:36 | Discharge Instructions ---
Discharge Instructions Date of Service Dec 04, 2017. Admission Reason for Admission: FEVER Discharge Discharge Diagnosis / Problem: Influenza,Diarrhea,[place] dosease Discharge Goals Goal(s): Prevent Disease Progression Activity Recommendations Activity Limitations: resume your previous activity . Instructions / Follow-Up Instructions / Follow-Up Dr Lin on 12/09/17 at 10:25 AM Current Hospital Diet Patient's current hospital diet: Diabetes Type 2 Diet, AHA Diet (Heart Healthy) Discharge Diet Recommended Diet: AHA Diet (Heart Healthy), Diabetes Type 2 Diet Pending Studies Studies pending at discharge: no Medical Emergencies . Who to Call and When: Medical Emergencies: If at any time you feel your situation is an emergency, please call 911 immediately. . Non-Emergent Contact Non-Emergency issues call your: Primary Care Provider . Past History Medical & Surgical History: (1) Addisons disease (2) DM type 2 (diabetes mellitus, type 2) (3) COPD (chronic obstructive pulmonary disease) (4) HLD (hyperlipidemia) (5) Depression with anxiety (6) CAD (coronary artery disease) . "Provider Documentation" section prepared by Nadine Bateman. . VTE Core Measure Inpt VTE Proph given/why not?: Enoxaparin (Lovenox)SQ
[2017-12-04] MEDS ORDERED: TMF75 PO (16:37)
[2017-12-04 18:04] VITALS: BP 127/80; PULSE 71; TEMP 36.7; O2SAT 98
[2017-12-04] MEDS ORDERED: DOXYCYCLINE HYCLATE 100 MG CAP PO SCH (21:00)
--- NOTE | 2017-12-05 08:30 | Discharge Summary ---
Discharge Summary Date of Service Dec 05, 2017. Discharge Summary Admission Date: Nov 30, 2017 at 18:59 Discharge Date: Dec 04, 2017 Principal Diagnosis: Influenza,Diarrhea,Russell disease Secondary Diagnoses/Problems: Please see H&P and Hospital progress note Medication Reconciliation New Medications: Potassium Chloride (Klor-Con M20) 20 Meq Tabcr 20 MEQ PO DAILY, #30 Doxycycline Hyclate (Doxycycline Hyclate) 100 Mg Cap 100 MG PO BID for 5 Days, #10 CAP Magnesium Chloride (Slow-Mag Tab) 64 Mg Tabcr 64 MG PO BID for 30 Days, #60 Oseltamivir Phosphate (Tamiflu) 75 Mg Cap 75 MG PO BID for 2 Days, #4 CAP Continued Medications: Albuterol Hfa (Ventolin Hfa) 200 Puffs/18108 Mcg Aers 3-4 PUFFS INH QID PRN for sob/wheezing, #1 INHALER Albuterol Sulf (Proventil 0.083% 2.5MG/3ML) 2.5 Mg/3 Ml Nebu 2.5 MG INH QID PRN for Wheezing, EA Alprazolam (Xanax) 0.5 Mg Tab 0.5 MG PO HS PRN for Sleep, TAB Amitriptyline Hcl (Elavil) 25 Mg Tab 1 TAB PO HS for 30 Days, #30 TAB 5 Refills Aspirin (Aspirin Chewable) 81 Mg Chew 81 MG PO QAM Atorvastatin (Lipitor) 80 Mg Tab 80 MG PO HS for 30 Days, TAB 5 Refills Cholestyramine (Questran) 4 Gm Pow 4 GM PO BID for 30 Days, #240 GM mix with liquid Dexamethasone Sod Phos (Dexamethasone Sodium Phos) 4 Mg/Ml Inj 1 ML IM DIRECTED PRN for emergency treatment Diphenoxylate/Atropine (Diphenoxylate/Atropine 2.5-0.025 mg) 1 Tab Tab 1 TAB PO TID for 30 Days, #90 TAB Fluoxetine HCl (Fluoxetine HCl) 20 Mg Cap 20 MG PO QAM, #90 Fluticasone Furoate-Vilanterol (Breo Ellipta) 1 Inh Inh 1 INHA PO DAILY Hydrocortisone (Cortef) 10 Mg Tab 25 MG PO QAM, TAB Hydrocortisone (Cortef) 10 Mg Tab 10 MG PO QDL, TAB Hydrocortisone (Cortef) 10 Mg Tab 10 MG PO HS, TAB Hydroxyzine Hcl (Atarax) 50 Mg Tab 50 MG PO HS PRN for Insomnia, TAB Insulin Glargine (Lantus) 100 Unit/Ml Inj 10-20 UNITS SC UD, VIAL USE DIRECTED Insulin Lispro (Human) (Humalog) 100 Unit/Ml Inj SC ACHS SLIDING SCALE, MAX UNITS DAILY, 40 UNITS Ipratropium-Albuterol (Duoneb) 3 Ml Nebu 1 TREATMENT INH QID PRN for sob/wheezing, #30 INHA Isosorbide Mononitrate Ext Rel (Imdur Ext Rel) 60 Mg Ertab 60 MG PO QAM, TAB Mirtazapine (Remeron) 30 Mg Tab 30 MG PO HS PRN for Insomnia for 30 Days, #30 TAB 1 Refill Pancrelipase (Lipase-Protease- (Creon) 1 Cap Cap 2 CAP PO TIDM 1 capsule with meals Ranitidine Hcl (Zantac) 150 Mg Tab 150 MG PO BID, TAB Tiotropium [place] (Spiriva Handihaler) 30 Puff/540 Mcg Aerp 1 CAP INH DAILY, INHALER Admission Information HPI (per Admitting provider): 62 year old male who was sent from his PCPs office for evaluation of generalized weakness, body aches, and fever. Patient reports his symptoms started about 4 days ago. He was reports he recently traveled home from [place]. He has had a sore throat, sinus pressure, and productive cough. At his PCP's office today he had a temperature of 102. Patient also has history of collagenosus colitis and has chronic diarrhea however it has been worsening the past few days. He reports a poor appetite. He also has chronic lower abdominal pain which has been worsening the past few days as well, more tenderness on the left than the right. He denies chest pain and palpitations. He has been able to take his medicines. He denies lightheadedness, dizziness, diaphoresis, or syncopal events. 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 He reports his urine output has been down but denies any other urinary symptoms. In the ED, patient was tachycardic which improved with IVF. He has remained afebrile. Labs show a mild hypokalemia and hypomagnesemia. Patient was treated IM Decadron, IVF, IV morphine, IV Zofran , neb treatment, and IV Mg+ replacement. Past Medical/Surgical History Medical Problems: (1) Addisons disease Status: Chronic (2) C. difficile diarrhea Status: Chronic (3) CAD (coronary artery disease) Permanent Comment: 2002 - PCI to RCA 2004- PCI to OM1 Status: Chronic (4) Collagenous colitis Status: Chronic (5) COPD (chronic obstructive pulmonary disease) Status: Chronic (6) Depression with anxiety Status: Chronic (7) DM type 2 (diabetes mellitus, type 2) Status: Chronic (8) HLD (hyperlipidemia) Status: Chronic (9) HTN (hypertension) Status: Chronic Family History Diabetes mellitus FATHER MOTHER Social History Smoking Status: Current Every Day Smoker Alcohol Use: none Marital Status: Immunizations History of Influenza Vaccine: Yes Influenza Vaccine Date: Aug 26, 2017 History of Tetanus Vaccine?: Yes Tetanus Immunization Date: Aug 26, 2017 History of Pneumococcal: Yes Pneumococcal Date: Jan 21, 2010 Allergies Coded Allergies: Azathioprine (Verified Adverse Reaction, Unknown, RENAL COMPLICATIONS, 11/30) Home Medications Scheduled Amitriptyline Hcl (Elavil), 1 TAB PO HS Aspirin (Aspirin Chewable), 81 MG PO QAM Atorvastatin (Lipitor), 80 MG PO HS Cholestyramine (Questran), 4 GM PO BID Diphenoxylate/Atropine (Diphenoxylate/Atropine 2.5-0.025 mg), 1 TAB PO TID Fluoxetine HCl (Fluoxetine HCl), 20 MG PO QAM Fluticasone Furoate-Vilanterol (Breo Ellipta), 1 INHA PO DAILY Hydrocortisone (Cortef), 25 MG PO QAM Hydrocortisone (Cortef), 10 MG PO QDL Hydrocortisone (Cortef), 10 MG PO HS Insulin Glargine (Lantus), 10-20 UNITS SC UD Insulin Lispro (Human) (Humalog), SC ACHS Isosorbide Mononitrate Ext Rel (Imdur Ext Rel), 60 MG PO QAM Pancrelipase (Lipase-Protease- (Creon), 2 CAP PO TIDM Ranitidine Hcl (Zantac), 150 MG PO BID Tiotropium [place] (Spiriva Handihaler), 1 CAP INH DAILY Scheduled PRN Albuterol Hfa (Ventolin Hfa), 3-4 PUFFS INH QID PRN for sob/wheezing Albuterol Sulf (Proventil 0.083% 2.5MG/3ML), 2.5 MG INH QID PRN for Wheezing Alprazolam (Xanax), 0.5 MG PO HS PRN for Sleep Dexamethasone Sod Phos (Dexamethasone Sodium Phos), 1 ML IM DIRECTED PRN for emergency treatment Hydroxyzine Hcl (Atarax), 50 MG PO HS PRN for Insomnia Ipratropium-Albuterol (Duoneb), 1 TREATMENT INH QID PRN for sob/wheezing Mirtazapine (Remeron), 30 MG PO HS PRN for Insomnia Review of Systems ROS per HPI, all other systems reviewed and negative Physical Ex - H&P Physical Exam Vital Signs Date Time Temp Pulse Resp B/P (MAP) Pulse Ox O2 Delivery O2 Flow Rate FiO2 11/30/17 18:18 36.6 73 18 118/80 93 Room Air 11/30/17 17:38 82 11/30/17 16:44 36.9 83 18 109/75 94 Room Air 11/30/17 15:43 37.0 11/30/17 14:49 36.5 102 18 120/70 93 Room Air 11/30/17 14:49 36.5 102 18 120/70 93 Room Air 11/30/17 13:33 101 11/30/17 12:48 37.5 123 18 136/76 97 Room Air General Appearance: WD/WN, no apparent distress Head: normocephalic, atraumatic Eyes: normal inspection, EOMI, sclerae normal ENT: hearing grossly normal, + pertinent finding (mucous membranes dry) Neck: supple, no JVD, trachea midline Respiratory/Chest: no respiratory distress, + decreased breath sounds Cardiovascular: regular rate, rhythm, no edema, normal peripheral pulses Abdomen/GI: normal bowel sounds, soft, no organomegaly, + tenderness (lower abdomen, more pronounced in the LLQ) Extremities/Musculoskelatal: normal inspection, no calf tenderness Neurologic/Psych: no motor/sensory deficits, alert, normal mood/affect, oriented x 3 Skin: normal color, warm/dry Diagnostics - H&P Diagnostics Laboratory Results Results Past 24 Hours Test 11/30/17 13:31 11/30/17 13:32 11/30/17 15:35 11/30/17 18:41 Range/Units White Blood Count 8.24 4.8-10.8 K/uL Red Blood Count 4.23 4.7-6.1 M/uL Hemoglobin 12.8 14.0-18.0 g/dL Hematocrit 38.0 42-52 % Mean Corpuscular Volume 89.8 80-100 fL Mean Corpuscular Hemoglobin 30.3 25-34 pg Mean Corpuscular Hemoglobin Concent 33.7 32-36 g/dl Platelet Count 189 130-400 K/uL Mean Platelet Volume 10.3 7.4-10.4 fL Neutrophils (%) (Auto) 69.3 % Lymphocytes (%) (Auto) 14.7 % Monocytes (%) (Auto) 14.1 % Eosinophils (%) (Auto) 1.1 % Basophils (%) (Auto) 0.2 % Neutrophils # (Auto) 5.71 1.4-6.5 K/uL Lymphocytes # (Auto) 1.21 1.2-3.4 K/uL Monocytes # (Auto) 1.16 0.11-0.59 K/uL Eosinophils # (Auto) 0.09 0-0.5 K/uL Basophils # (Auto) 0.02 0-0.2 K/uL RDW Standard Deviation 48.2 36.4-46.3 fL RDW Coefficient of Variation 15.0 11.5-14.5 % Immature Granulocyte % (Auto) 0.6 % Immature Granulocyte # (Auto) 0.05 0.00-0.02 K/uL Sodium Level 136 136-145 mmol/L Potassium Level 3.4 3.5-5.1 mmol/L Chloride Level 103 98-107 mmol/L Carbon Dioxide Level 23 21-32 mmol/L Anion Gap 10.0 3-11 mmol/L Blood Urea Nitrogen 9 7-18 mg/dl Creatinine 1.23 0.60-1.40 mg/dl Est Creatinine Clear Calc Drug Dose 62.3 ml/min Estimated GFR () 72.5 Estimated GFR (Non- 62.5 BUN/Creatinine Ratio 7.2 10-20 Random Glucose 85 70-99 mg/dl Lactic Acid Level 1.5 0.4-2.0 mmol/L Calcium Level 9.5 8.5-10.1 mg/dl Magnesium Level 1.4 1.8-2.4 mg/dl Total Bilirubin 0.4 0.2-1 mg/dl Direct Bilirubin 0.1 0-0.2 mg/dl Aspartate Amino Transf (AST/SGOT) 19 15-37 U/L Alanine Aminotransferase (ALT/SGPT) 24 12-78 U/L Alkaline Phosphatase 79 45-117 U/L Ammonia 40.4 11-32 umol/L Total Protein 7.1 6.4-8.2 gm/dl Albumin 3.4 3.4-5.0 gm/dl Lipase 108 73-393 U/L Influenza Type A Antigen Neg for Influ A NEG Influenza Type B Antigen Neg for Influ B NEG Urine Color YELLOW Urine Appearance CLEAR CLEAR Urine pH 5.0 4.5-7.5 Urine Specific [place] 1.019 1.000-1.030 Urine Protein NEG NEG Urine Glucose (UA) NEG NEG Urine Ketones NEG NEG Urine Occult Blood NEG NEG Urine Nitrite NEG NEG Urine Bilirubin NEG NEG Urine Urobilinogen NEG NEG Urine Leukocyte Esterase TRACE NEG Urine WBC (Auto) 1-5 0-5 /hpf Urine RBC (Auto) 0-4 0-4 /hpf Urine Hyaline Casts (Auto) 1-5 0-5 /lpf Urine Epithelial Cells (Auto) 20-30 0-5 /lpf Urine Bacteria (Auto) NEG NEG Test 11/30/17 19:03 Range/Units Microbiology Results 11/30/17 Blood Culture, Received Pending 11/30/17 Blood Culture, Received Pending 11/30/17 Group A Streptococcus Screen - Final, Resulted SPECIMEN NEGATIVE FOR GROUP A BETA ST... 11/30/17 Group A Streptococcus Screen (CECELIA), Resulted Pending 11/30/17 C.difficile Toxin B Gene (PCR) - Final, Complete No C. difficile toxin B gene detected 11/30/17 WBC Smear, Received Pending 11/30/17 Shiga Toxin Test, Received Pending 11/30/17 Stool Culture, Received Pending Diagnostic Radiology CXR IMPRESSION: No acute process. Impression - H&P Impression Assessment and Plan FEBRILE ILLNESS HX EUSEBIO'S HX COLLAGENOUS COLITIS HYPOKALEMIA, HYPOMAGNESEMIA - admit to tele - patient presenting with 4 days of generalized weakness, body aches, fever, and sore throat - at PCP's office patient had a temp of 102 and was tachycardic - afebrile in the ED, HR improved with IVF - rapid flu and strep negative; will check flu PCR - no signs of pneumonia on CXR - given increased abdominal pain and diarrhea will check CT abd/pelvis - C. diff negative; stool culture pending - blood cultures - due to history of Russell's and chronic steroid use, will start stress dose steroids hydrocortisone 50mg IV q8h; noted BP currently stable - continue supportive care with IVF, electrolyte replacement DM - Hgb a1c 7.3 08/2017 - Lantus + SSI CAD - stable, no reports of chest pain - continue ASA, nitrate, and statin ANXIETY, DEPRESSION - continue home meds DVT PROPHYLAXIS - SQ Lovenox DISPO - In my clinical judgment this beneficiary meets acute admission criteria, established by [facility], that includes being hospitalized through two midnights. Attending Addendum: The patient was seen and examined Recently back from [place] Travelled with [employer] Flu symptoms with abd pain with nausea/vomiting and Diarrhea O/E Flashed facies Tachycardic but otherwise hemodynamically stable Chest-clear Heart-regular Abdomen-soft,mildly tender LLQ extremities-negative Labs and Imaging studies were reviewed Likely Flu-await further tests results Agree with the assessment and plan. Dr Marcio Bateman VTE Prophylaxis VTE Risk Assessment Done? Y/N: Yes Risk Level: Moderate Physical Exam (per Admitting): General Appearance: WD/WN, no apparent distress Head: normocephalic, atraumatic Eyes: normal inspection, EOMI, sclerae normal ENT: hearing grossly normal, + pertinent finding (mucous membranes dry) Neck: supple, no JVD, trachea midline Respiratory/Chest: no respiratory distress, + decreased breath sounds Cardiovascular: regular rate, rhythm, no edema, normal peripheral pulses Abdomen/GI: normal bowel sounds, soft, no organomegaly, + tenderness (lower abdomen, more pronounced in the LLQ) Extremities/Musculoskelatal: normal inspection, no calf tenderness Neurologic/Psych: no motor/sensory deficits, alert, normal mood/affect, oriented x 3 Skin: normal color, warm/dry Hospital Course Influenza A:Causing fever HX EUSEBIO'S HX COLLAGENOUS COLITIS HYPOKALEMIA, HYPOMAGNESEMIA-secondary to diarrhea - admit to tele - patient presenting with 4 days of generalized weakness, body aches, fever, and sore throat - at PCP's office patient had a temp of 102 and was tachycardic - afebrile in the ED, HR improved with IVF - no signs of pneumonia on CXR - CT abdomen -negative for any Diverticulitis - C. diff negative; stool culture pending-negative - blood cultures-one bottle is growing Gm Negative Staph ,2nd bottle is negative .Likely contaminant - due to history of Eusebio's and chronic steroid use, will start stress dose steroids hydrocortisone 50mg IV q8h; noted BP currently stable -Started on IV Vancomycin imperically -will stop tomorrow - continue supportive care with IVF, electrolyte replacement -Clinically much better without any signs of infection -Moderately SOB on minimal exertion -Repeat CXR negative for any pneumonia -may have bronchitis -will start oral antibiotics Diarrhea with Electrolytes Imbalance Negative for C Diff and Stool culture Can have Antidiarrheal medication Started on Bentyl Electrolytes replaced again today Generally weak Better today DM - Hgb a1c 7.3 08/2017 - Lantus + SSI CAD - stable, no reports of chest pain - continue ASA, nitrate, and statin ANXIETY, DEPRESSION - continue home meds DVT PROPHYLAXIS - SQ Lovenox DISPO -Likely discharge in a day or two Total time spent on discharge = 35 minutes This includes examination of the patient, discharge planning, medication reconciliation, and communication with other providers. Discharge Instructions Date of Service Dec 04, 2017. Admission Reason for Admission: FEVER Discharge Discharge Diagnosis / Problem: Influenza,Diarrhea,Eusebio dosease Discharge Goals Goal(s): Prevent Disease Progression Activity Recommendations Activity Limitations: resume your previous activity . Instructions / Follow-Up Instructions / Follow-Up Dr Lin on 12/09/17 at 10:25 AM Current Hospital Diet Patient's current hospital diet: Diabetes Type 2 Diet, AHA Diet (Heart Healthy) Discharge Diet Recommended Diet: AHA Diet (Heart Healthy), Diabetes Type 2 Diet Pending Studies Studies pending at discharge: no Medical Emergencies . Who to Call and When: Medical Emergencies: If at any time you feel your situation is an emergency, please call 911 immediately. . Non-Emergent Contact Non-Emergency issues call your: Primary Care Provider . Past History Medical & Surgical History: (1) Addisons disease (2) DM type 2 (diabetes mellitus, type 2) (3) COPD (chronic obstructive pulmonary disease) (4) HLD (hyperlipidemia) (5) Depression with anxiety (6) CAD (coronary artery disease) . "Provider Documentation" section prepared by Nadine Bateman. . VTE Core Measure Inpt VTE Proph given/why not?: Enoxaparin (Lovenox)SQ <Electronically signed by Nadine Bateman M.D.> Signed: 12/04/17 [id number] Additional Copies To Tony Lin D.O.
== END 2017-12-04 18:15 | disposition home or self-care (01) | DRG 194 ==
LOC: C.EDB 12:35 → C.2E 18:59 → UNDOADMIN 18:59 → ENRESERV 19:37
PROVIDERS: ADMIT Internal Medicine; ATTEND Internal Medicine
DX: J10.1 Influenza due to other identified influenza virus with other respiratory manifestations (principal); E27.1 Primary adrenocortical insufficiency; E87.6 Hypokalemia; E83.42 Hypomagnesemia; K52.831 Collagenous colitis; J44.9 Chronic obstructive pulmonary disease, unspecified; I11.9 Hypertensive heart disease without heart failure; E11.9 Type 2 diabetes mellitus without complications; I25.10 Atherosclerotic heart disease of native coronary artery without angina pectoris; E78.5 Hyperlipidemia, unspecified; F41.9 Anxiety disorder, unspecified; F32.9 Major depressive disorder, single episode, unspecified; F17.200 Nicotine dependence, unspecified, uncomplicated; Z51.81 Encounter for therapeutic drug level monitoring; Z79.899 Other long term (current) drug therapy; Z79.52 Long term (current) use of systemic steroids; Z79.4 Long term (current) use of insulin; Z79.82 Long term (current) use of aspirin; Z83.3 Family history of diabetes mellitus

== ENCOUNTER 2018-01-04 19:01 | Inpatient (IN) | payer OTHER ==
[~2018-01-04] VITALS: Ht 175.3 cm; Wt 77.6 kg
[~2018-01-04 19:01] MED LIST changes: -ALBINS/ INH; +DXY100 PO; -FLUO20CA36 PO; -LISI-729 PO; +MCRK20 PO; +TMF75 PO
[2018-01-04] MEDS ORDERED: AMIT25TA9 PO (19:06)
[2018-01-04] MEDS ORDERED: PANC6000 PO (19:06)
[2018-01-04] MEDS ORDERED: ALBINS/ INH (19:30)
[2018-01-04] MEDS ORDERED: FLUO20CA36 PO (19:30)
[2018-01-04] MEDS ORDERED: POTA20TA13 PO (20:41)
[2018-01-04] MEDS ORDERED: ALPR-411 PO (20:41)
[2018-01-04] MEDS ORDERED: MIRT30TA3 PO (20:41)
[2018-01-04] MEDS ORDERED: DIPH-416 PO (20:41)
[2018-01-04] MEDS ORDERED: RANI150T2 PO (20:41)
[2018-01-04] MEDS ORDERED: VNTHFA/IN INH (20:41)
[2018-01-04] MEDS ORDERED: FENTANYL CITRATE INJ 50 MCG/1 ML 2 ML VIAL IV STA (20:42)
[2018-01-04] MEDS ORDERED: SODIUM CHLORIDE 0.9% 1000ML 1,000 ML IV STA ×4 (20:42→23:31)
[2018-01-04] MEDS ORDERED: ONDANSETRON INJ 2 MG/ML 2 ML VIAL IV STA (20:42)
[2018-01-04] MEDS ORDERED: SLWMEC PO (20:48)
[2018-01-04] MEDS ORDERED: LSN5 PO (21:01)
[2018-01-04] MEDS ORDERED: ASPI81TA28 PO (21:01)
[2018-01-04] MEDS ORDERED: CHOL4POW11 PO (21:01)
--- NOTE | 2018-01-04 21:05 | EMERGENCY ROOM VISIT NOTE ---
History Report prepared by Tisha: Galdino Joseph Under the Supervision of: Dr. Kanchan Lindsey D.O. First contact with patient: 20:34 Chief Complaint: ILLNESS Stated Complaint: VERY WEAK - LOW BLOOD PRESSURE, INCREASED DIARRHEA History of Present Illness The patient is a 62 year old male who presents to the Emergency Room with complaints of worsening abdominal pain beginning two days ago. The patient states he developed a fever two days ago, took two Tylenol, and went to sleep. He reports his symptoms were steady yesterday. The patient notes today, his chronic diarrhea worsened, he became weak, dizzy, and shaky when standing. He states he spoke with his PCP earlier and was told to come straight to the ED. The patient reports he was discharged from the hospital 4 weeks ago for the flu , and then he developed a staph infection that required isolation. He notes he was septic last year. The patient states he has a history of collagenous colitis and [place]'s Disease. He reports he was in the ED 7 times last year. The patient notes he also has a history of diabetes, asthma, COPD, and two MIs. He states his last blood sugar check was 144, and he has not eaten anything. The patient reports he is trying to quit smoking and has both an inhaler and nebulizer at home. He notes he did a few breathing treatments prior to arrival. The patient states his grandson has strep. He denies blood in his stool and black stool. Source of History: patient Onset: two days ago Position: abdomen Timing: worsening Associated Symptoms: + fevers (two days ago), + diarrhea (worsening chronic diarrhea today), + weakness (today) Note: Associated symptoms: dizziness, shakiness when standing Denies: blood in stool, black stool Review of Systems See HPI for pertinent positives & negatives. A total of 10 systems reviewed and were otherwise negative. Past Medical & Surgical Medical Problems: (1) Abdominal pain (2) Addisons disease (3) C. difficile diarrhea (4) CAD (coronary artery disease) (5) Collagenous colitis (6) COPD (chronic obstructive pulmonary disease) (7) Depression with anxiety (8) DM type 2 (diabetes mellitus, type 2) (9) HLD (hyperlipidemia) (10) HTN (hypertension) Family History Diabetes mellitus FATHER MOTHER Social History Smoking Status: Current Every Day Smoker Alcohol Use: occasionally Marital Status: Housing Status: lives with family Current/Historical Medications Scheduled Aspirin (Aspirin Ec), 81 MG PO DAILY Atorvastatin (Lipitor), 80 MG PO DAILY Cholestyramine (Questran), 4 GM PO BID Diphenoxylate/Atropine (Diphenoxylate/Atropine 2.5-0.025 mg), 1 TAB PO TID Fluoxetine HCl (Fluoxetine HCl), 20 MG PO QAM Hydrocortisone (Cortef), 25 MG PO QAM Hydrocortisone (Cortef), 10 MG PO QD@1200 Hydrocortisone (Cortef), 10 MG PO HS Insulin Glargine (Lantus), 10-20 UNITS SC UD Insulin Lispro (Human) (Humalog), 1 DOSE SC ACHS Isosorbide Mononitrate Ext Rel (Imdur Ext Rel), 60 MG PO QAM Lisinopril (Lisinopril), 5 MG PO DAILY Pancrelipase (Lipase-Protease- (Creon), 2 CAP PO TIDM Ranitidine HCl (Ranitidine HCl), 150 MG PO BID Scheduled PRN Albuterol Hfa (Ventolin Hfa), 2 PUFFS INH Q6H PRN for Wheezing Albuterol Sulf (Proventil 0.083% 2.5MG/3ML), 2.5 MG INH QID PRN for Wheezing Alprazolam (Alprazolam), 0.5 MG PO HS PRN for Anxiety/Agitation Dexamethasone Sod Phos (Dexamethasone Sodium Phos), 1 ML IM UD PRN for [place] Disease Hydroxyzine Hcl (Atarax), 50 MG PO HS PRN for Insomnia Mirtazapine (Remeron), 30 MG PO HS PRN for Sleep Allergies Coded Allergies: Azathioprine (Verified Adverse Reaction, Unknown, RENAL COMPLICATIONS, 11/30) Physical Exam Vital Signs Date Time Temp Pulse Resp B/P (MAP) Pulse Ox O2 Delivery O2 Flow Rate FiO2 01/04/18 23:41 72 16 95 01/04/18 23:31 114/66 01/04/18 23:26 85 15 98 01/04/18 23:25 83 01/04/18 23:11 75 18 95 01/04/18 23:01 105/68 01/04/18 22:56 75 18 97 01/04/18 22:51 84 24 95 01/04/18 22:31 110/65 01/04/18 22:21 74 97 01/04/18 22:06 75 96 01/04/18 22:01 79 100/63 98 01/04/18 21:50 105/68 01/04/18 21:03 121/72 01/04/18 21:01 84 20 96 01/04/18 20:46 84 15 96 01/04/18 20:31 84 14 105/67 97 01/04/18 20:16 83 97 01/04/18 20:02 102/73 01/04/18 19:34 36.7 102 18 134/73 96 Room Air Physical Exam GENERAL: alert, ill appearing, well nourished EYE EXAM: normal conjunctiva, PERRL and EOM's grossly intact OROPHARYNX: no exudate, no erythema, lips, buccal mucosa, and tongue normal and mucous membranes are dry NECK: supple, no nuchal rigidity, no adenopathy, non-tender LUNGS: Normal chest wall mechanics. Right greater than left rhonchi. No wheezes or rales. HEART: no murmurs, S1 normal and S2 normal ABDOMEN: abdomen soft, left sided tenderness upon palpation, normo-active bowel sounds, no masses, no rebound or guarding. BACK: Back is symmetrical on inspection and there is no deformity, no midline tenderness, no CVA tenderness. SKIN: no rashes and no bruising UPPER EXTREMITIES: upper extremities are grossly normal. LOWER EXTREMITIES: No pitting edema. NEURO EXAM: Normal sensorium, cranial nerves II-XII intact, normal speech, no weakness of arms, no weakness of legs. Medical Decision & Procedures ER Provider Diagnostic Interpretation: Radiology results have been interpreted by the radiologist and reviewed by me. ABDOMEN 2VIEW W/PA CHEST RTN HISTORY: 62 years-old Male cough, left abd pain, diarrhea acute cough with left-sided abdominal pain COMPARISON: Chest radiographs 12/02/2017, CT abdomen and pelvis 11/30/2017 TECHNIQUE: PA view of the chest with erect and supine views of the abdomen FINDINGS: Cardiomediastinal and hilar silhouettes are within normal limits. No pneumothorax, pleural effusion, focal airspace consolidation or overt pulmonary edema. Bones of the chest appear grossly intact. There are several air-fluid levels noted throughout small bowel in the mid and right abdomen with nonobstructive bowel gas pattern. No pneumoperitoneum on the upright projection. No urolith or acute fracture. Vascular calcifications are seen. IMPRESSION: 1. No acute process of the chest. 2. Nonobstructive bowel gas pattern without pneumoperitoneum. 3. Small bowel air-fluid levels throughout the mid and right abdomen suggest enteritis or ileus. The above report was generated using voice recognition software. It may contain grammatical, syntax or spelling errors. Electronically signed by: Farhad Villalta M.D. 01/04/2018 9:33 PM Dictated Date/Time: 01/04/2018 9:30 PM Laboratory Results Test 01/04/18 21:00 01/04/18 21:05 01/04/18 21:07 01/04/18 21:12 Immature Granulocyte % (Auto) 0.3 % White Blood Count 15.86 K/uL (4.8-10.8) Red Blood Count 4.07 M/uL (4.7-6.1) Hemoglobin 12.3 g/dL (14.0-18.0) Hematocrit 36.9 % (42-52) Mean Corpuscular Volume 90.7 fL (80-100) Mean Corpuscular Hemoglobin 30.2 pg (25-34) Mean Corpuscular Hemoglobin Concent 33.3 g/dl (32-36) Platelet Count 137 K/uL (130-400) Mean Platelet Volume 10.5 fL (7.4-10.4) Neutrophils (%) (Auto) 86.1 % Lymphocytes (%) (Auto) 5.9 % Monocytes (%) (Auto) 7.5 % Eosinophils (%) (Auto) 0.1 % Basophils (%) (Auto) 0.1 % Neutrophils # (Auto) 13.66 K/uL (1.4-6.5) Lymphocytes # (Auto) 0.93 K/uL (1.2-3.4) Monocytes # (Auto) 1.19 K/uL (0.11-0.59) Eosinophils # (Auto) 0.02 K/uL (0-0.5) Basophils # (Auto) 0.01 K/uL (0-0.2) Immature Granulocyte # (Auto) 0.05 K/uL (0.00-0.02) Prothrombin Time 10.5 SECONDS (9.0-12.0) Prothromb Time International Ratio 1.0 (0.9-1.1) Total Bilirubin 0.7 mg/dl (0.2-1) Aspartate Amino Transf (AST/SGOT) 19 U/L (15-37) Alanine Aminotransferase (ALT/SGPT) 19 U/L (12-78) Alkaline Phosphatase 64 U/L (45-117) Troponin I < 0.015 ng/ml (0-0.045) Total Protein 6.4 gm/dl (6.4-8.2) Albumin 2.8 gm/dl (3.4-5.0) Globulin 3.6 gm/dl (2.5-4.0) Albumin/Globulin Ratio 0.8 (0.9-2) Thyroid Stimulating Hormone (TSH) 0.343 uIu/ml (0.300-4.500) Influenza Type A Antigen Neg for Influ A (NEG) Influenza Type B Antigen Neg for Influ B (NEG) Bedside Lactic Acid Venous 2.86 mmol/L (0.90-1.70) Influenza Type A (RT-PCR) Neg for Influ A (NEG) Influenza Type B (RT-PCR) Neg for Influ B (NEG) Laboratory results per my review. Medications Administered Medications (Trade) Dose Ordered Sig/Tisha Route Start Time Stop Time Status Last Admin Dose Admin Ondansetron HCl (Zofran Inj) 4 mg NOW STAT IV 01/04/18 20:42 01/04/18 20:45 DC 01/04/18 21:05 4 MG Fentanyl Citrate (Fentanyl Inj) 50 mcg NOW STAT IV 01/04/18 20:42 01/04/18 20:45 DC 01/04/18 21:05 50 MCG Sodium Chloride 1,000 ml @ 999 mls/hr Q1H1M STAT IV 01/04/18 20:42 01/04/18 21:42 DC 01/04/18 21:05 999 MLS/HR Sodium Chloride 1,000 ml @ 999 mls/hr Q1H1M STAT IV 01/04/18 21:44 01/04/18 22:44 DC 01/04/18 22:41 999 MLS/HR Potassium Chloride (Klor-Con M10) 40 meq NOW STAT PO 01/04/18 21:44 01/04/18 21:46 DC 01/04/18 22:50 40 MEQ Morphine Sulfate (MoRPHine SULFATE INJ) 4 mg NOW STAT IV 01/04/18 22:10 01/04/18 22:11 DC 01/04/18 22:46 4 MG Magnesium Sulfate (Magnesium Sulfate) 2 gm NOW STAT IV 01/04/18 22:24 01/04/18 22:26 DC 01/04/18 22:53 2 GM Sodium Chloride 1,000 ml @ 250 mls/hr Q4H STAT IV 01/04/18 23:05 01/05/18 01:31 DC 01/04/18 23:29 250 MLS/HR ECG Indication: weakness Rate (beats per minute): 93 Rhythm: sinus rhythm Findings: ST depression (V3, V4, V5), other (Normal axis, normal intervals. Slight concavity of the ST segments in V6, and leads I and II) Comparison ECG Date: 09/13/17 Change: ST segment changes are new. EKG: Patient's electrocardiogram per my interpretation. ED Course 2034: The patient was evaluated in room C03. A complete history and physical exam was performed. 2041: Ordered Sodium Chloride 1000 ml @ 999 mls/hr IV, Fentanyl Citrate 50mcg IV , Ondansetron HCl 4mg IV 2143: Ordered Potassium Chloride 40 meq PO, Sodium Chloride 1000 ml @ 999 mls/ hr IV 214: I reevaluated the patient and discussed current test results. His nausea is better, but he is still having pain. 2210: Ordered Morphine Sulfate 4mg IV 2224: Ordered Magnesium Sulfate 2gm IV 2305: Ordered Sodium Chloride 1000 ml @ 250 mls/hr IV 2322: Upon reevaluation, the patient is resting comfortably. I discussed the findings and the treatment plan with the patient. He expresses agreement and understanding. 2325: [facility] The patient will be evaluated for further management. 2331: Ordered Sodium Chloride 1000 ml @ 200 mls/hr IV Medical Decision Differential diagnoses includes but is not limited to gastritis, peptic ulcer disease, GERD, gallbladder disease, pancreatitis, small bowel obstruction, acute coronary syndrome, pericarditis, ischemic bowel, irritable bowel disease, irritable bowel syndrome, appendicitis, diverticulitis, malignancy, hernia, urinary tract infection, torsion, perforation, trauma, infectious. Patient well-appearing here, and no significant improvement following IV fluid rehydration and repletion of electrolytes. Given patient's, complicated medical history, known history of collagenous colitis and worse diarrhea compared to normal, patient discussed with the hospitalist for continued hydration and monitoring overnight. Have a low suspicion for bacteremia/sepsis , however culture sent as precaution. Patient with recurrent episodes of pain, however does seem to have a chronic component of pain given multiple presentations. Patient was negative for C. difficile, additional stool culture still pending. I do not suspect perforation, mesenteric colitis or ischemia, active GI bleed, vascular etiology. No evidence of additional pulmonary or cardiac pathology. Medication Reconcilliation Current Medication List: was personally reviewed by me Blood Pressure Screening Patient's blood pressure: Normal blood pressure Blood pressure disposition: Did not require urgent referral Consults Time Called: 2321 Consulting Physician: [facility] Returned Call: [phone] [facility]. The patient will be evaluated for further management. Impression Primary Impression: Dehydration Additional Impressions: Diarrhea Abdominal pain Hypokalemia Hypomagnesemia Scribe Attestation The scribe's documentation has been prepared under my direction and personally reviewed by me in its entirety. I confirm that the note above accurately reflects all work, treatment, procedures, and medical decision making performed by me. Departure Information Dispostion Being Evaluated By Hospitalist Referrals Tony Lin D.O. (PCP) Patient Instructions My [facility] Problem Qualifiers Additional Impressions: Diarrhea Diarrhea type: unspecified type Qualified Codes: R19.7 - Diarrhea, unspecified Abdominal pain Abdominal location: generalized Qualified Codes: R10.84 - Generalized abdominal pain
[2018-01-04 21:17] LABS: BASO % 0.1 %; BASO ABS # 0.01 K/uL (0-0.2); EOS % 0.1 %; EOS ABS # 0.02 K/uL (0-0.5); HEMATOCRIT 36.9 % (42-52); HEMOGLOBIN 12.3 g/dL (14.0-18.0); IG# 0.05 K/uL (0.00-0.02); LYMPH % 5.9 %; LYMPH ABS # 0.93 K/uL (1.2-3.4); MEAN CELL VOLUME 90.7 fL (80-100); MEAN CORPUSCULAR HEMOGLOBIN 30.2 pg (25-34); MEAN CORPUSCULAR HGB CONC 33.3 g/dl (32-36); MEAN PLATELET VOLUME 10.5 fL (7.4-10.4); MONO % 7.5 %; MONO ABS # 1.19 K/uL (0.11-0.59); NEUT % 86.1 %; NEUT ABS # 13.66 K/uL (1.4-6.5); PLATELET COUNT 137 K/uL (130-400); RED CELL DISTRIBUTION WIDTH CV 16.3 % (11.5-14.5); RED CELL DISTRIBUTION WIDTH SD 53.9 fL (36.4-46.3); WHITE BLOOD COUNT 15.86 K/uL (4.8-10.8)
[2018-01-04 21:30] LABS: ALBUMIN 2.8 gm/dl (3.4-5.0); ALT/SGPT 19 U/L (12-78); BLOOD UREA NITROGEN 11 mg/dl (7-18); CALCIUM 8.5 mg/dl (8.5-10.1); CARBON DIOXIDE 24 mmol/L (21-32); CREATININE 1.47 mg/dl (0.60-1.40); GLUCOSE 212 mg/dl (70-99); POTASSIUM 2.8 mmol/L (3.5-5.1); SODIUM 136 mmol/L (136-145)
--- NOTE | 2018-01-04 21:34 | DIAGNOSTIC IMAGING REPORT ---
ABDOMEN 2VIEW W/PA CHEST RTN HISTORY: 62 years-old Male cough, left abd pain, diarrhea acute cough with left-sided abdominal pain COMPARISON: Chest radiographs 12/02/2017, CT abdomen and pelvis 11/30/2017 TECHNIQUE: PA view of the chest with erect and supine views of the abdomen FINDINGS: Cardiomediastinal and hilar silhouettes are within normal limits. No pneumothorax, pleural effusion, focal airspace consolidation or overt pulmonary edema. Bones of the chest appear grossly intact. There are several air-fluid levels noted throughout small bowel in the mid and right abdomen with nonobstructive bowel gas pattern. No pneumoperitoneum on the upright projection. No urolith or acute fracture. Vascular calcifications are seen. IMPRESSION: 1. No acute process of the chest. 2. Nonobstructive bowel gas pattern without pneumoperitoneum. 3. Small bowel air-fluid levels throughout the mid and right abdomen suggest enteritis or ileus. The above report was generated using voice recognition software. It may contain grammatical, syntax or spelling errors. Electronically signed by: Farhad Villalta M.D. 01/04/2018 9:33 PM Dictated Date/Time: 01/04/2018 9:30 PM
[2018-01-04 21:41] LABS: ALKALINE PHOSPHATASE 64 U/L (45-117); AST/SGOT 19 U/L (15-37); PHOSPHORUS 1.9 mg/dl (2.5-4.9); TOTAL PROTEIN 6.4 gm/dl (6.4-8.2)
[2018-01-04 21:42] LABS: INFLUENZA B ANTIGEN Neg for Influ B (NEG)
[2018-01-04] MEDS ORDERED: POTASSIUM CHLORIDE 10 MEQ TABCR PO STA (21:44)
[2018-01-04] MEDS ORDERED: MoRPHine SULFATE 4 MG/ML 1 ML CARP\\VIAL IV STA (22:10)
[2018-01-04] MEDS ORDERED: MAGNESIUM SULFATE 1GM / D5W 1 GM BAG IV STA (22:24)
[2018-01-05] VITALS (9 sets, daily range): BP systolic 120–143; BP diastolic 71–80; PULSE 64–97; TEMP 36.4–36.6; O2SAT 92–99; Ht 175.3 cm; Wt 77.6 kg
[2018-01-05] MEDS ORDERED: MoRPHine SULFATE 4 MG/ML 1 ML CARP\\VIAL IV STA (00:16)
[2018-01-05] MEDS ORDERED: GLUCAGON FOR INJ 1 MG VIAL SQ PRN (00:45)
[2018-01-05] MEDS ORDERED: ACETAMINOPHEN 325 MG TAB PO PRN (00:45)
[2018-01-05] MEDS ORDERED: OXYCODONE HCL IR 5 MG TAB (IMMEDIATE RELEASE) PO PRN (00:45)
[2018-01-05] MEDS ORDERED: ONDANSETRON INJ 2 MG/ML 2 ML VIAL IV PRN (00:45)
[2018-01-05] MEDS ORDERED: GLUCOSE 40% GEL 15 GM TUBE PO PRN (00:45)
[2018-01-05] MEDS ORDERED: DEXTROSE 50% 50 ML SYR IV PRN (00:45)
[2018-01-05] MEDS ORDERED: GLUCOSE 10 TABS/TUBE PO PRN (00:45)
[2018-01-05] MEDS ORDERED: MIRTAZAPINE TAB 15 MG TAB PO PRN (01:00)
[2018-01-05] MEDS ORDERED: hydrOXYzine HCL 25 MG TAB PO PRN (01:00)
[2018-01-05] MEDS ORDERED: DEXAMETHASONE SOD INJ 4 MG/ML VIAL IM PRN (01:00)
[2018-01-05] MEDS ORDERED: ALPRAZOLAM 0.5 MG TAB PO PRN (01:00)
[2018-01-05] MEDS ORDERED: PHARMACY GLYCEMIC MGMT CONSULT PRN (01:30)
[2018-01-05] MEDS ORDERED: LEVOFLOXACIN / D5W 750 MG in PREMIXED IN D5W 150 ML IV SCH (02:00)
[2018-01-05] MEDS: INSULIN ASPART 100 UNITS/ML 3 ML PEN SC SCH ×5 (02:00→21:18)
[2018-01-05] MEDS: POTASSIUM CHLR 10 MEQ / WTR 10 MEQ in PREMIXED WATER 100 ML IV SCH ×4 (02:16→05:55)
[2018-01-05] MEDS: SODIUM CHLORIDE 0.9% 1000ML 1,000 ML IV SCH ×2 (02:16→11:30)
[2018-01-05] MEDS: METHYLPREDNISOLONE IV 40 MG in SYRINGE 0 ML IV SCH ×3 (02:17→14:28)
[2018-01-05 03:00] LABS: INFLUENZA A PCR Neg for Influ A (NEG); INFLUENZA B PCR Neg for Influ B (NEG)
[2018-01-05] MEDS: MoRPHine SULFATE 4 MG/ML 1 ML CARP\\VIAL IV PRN ×3 (05:16→21:10)
[2018-01-05] MEDS: HEPARIN SOD 5000 UNIT/0.5 ML CARP SQ SCH ×3 (06:02→21:19)
[2018-01-05 07:11] LABS: HEMOGLOBIN 11.7 g/dL (14.0-18.0); MEAN CELL VOLUME 90.7 fL (80-100); MEAN CORPUSCULAR HEMOGLOBIN 30.3 pg (25-34); MEAN CORPUSCULAR HGB CONC 33.4 g/dl (32-36); MEAN PLATELET VOLUME 10.2 fL (7.4-10.4); PLATELET COUNT 117 K/uL (130-400); RED CELL DISTRIBUTION WIDTH CV 16.3 % (11.5-14.5); RED CELL DISTRIBUTION WIDTH SD 53.8 fL (36.4-46.3)
--- NOTE | 2018-01-05 07:17 | History and Physical ---
History & Physical Date & Time of Service: Jan 05, 2018 at 01:00 Chief Complaint: Very Weak - Low Blood Pressure, Increased Diarrhea Primary Care Physician: Tony Lin D.O. History of Present Illness 62 yo M presents with worsening abdominal pain x 2 days associated with a fever , weakness wtih dizziness and shakiness when he satnds. He was recently admitted 4 weeks ago for the flu. He reports that his grandson is ill. He denies blood in the stool. He admits to some worsening of his chronic diarrhea. He is specifically asking for pain medication not 10 minutes after receiving a dose in the ER as I was leaving the room. He is not on narcotics for pain at home. Suspect pain-med seeking behavior as has been the case before with Dilaudid. On abdominal exam I hadn't but grazed his skin and he was flinching and jumping away all over his abdomen despite reports of localized abdominal pain in his LLQ. He admits to some productive cough and dyspnea. Some intermittent chest pain on the right side that is not currently present. Past Medical/Surgical History Medical Problems: (1) Addisons disease Status: Chronic (2) C. difficile diarrhea Status: Chronic (3) CAD (coronary artery disease) Permanent Comment: 2001 - PCI to RCA 2003- PCI to OM1 Status: Chronic (4) Collagenous colitis Status: Chronic (5) COPD (chronic obstructive pulmonary disease) Status: Chronic (6) Depression with anxiety Status: Chronic (7) DM type 2 (diabetes mellitus, type 2) Status: Chronic (8) HLD (hyperlipidemia) Status: Chronic (9) HTN (hypertension) Status: Chronic Family History Diabetes mellitus FATHER MOTHER Social History Smoking Status: Current Every Day Smoker Smokeless Tobacco Use: Unknown Alcohol Use: Drug Use: none Marital Status: Housing status: lives with significant other Occupational Status: retired Immunizations History of Influenza Vaccine: Yes Influenza Vaccine Date: Aug 26, 2017 History of Tetanus Vaccine?: Yes Tetanus Immunization Date: Aug 26, 2017 History of Pneumococcal: Yes Pneumococcal Date: Jan 21, 2010 Multi-Drug Resistant Organisms History of MDRO: No Allergies Coded Allergies: Azathioprine (Verified Adverse Reaction, Unknown, RENAL COMPLICATIONS, 11/30) Home Medications Scheduled Aspirin (Aspirin Ec), 81 MG PO DAILY Atorvastatin (Lipitor), 80 MG PO DAILY Cholestyramine (Questran), 4 GM PO BID Diphenoxylate/Atropine (Diphenoxylate/Atropine 2.5-0.025 mg), 1 TAB PO TID Fluoxetine HCl (Fluoxetine HCl), 20 MG PO QAM Hydrocortisone (Cortef), 25 MG PO QAM Hydrocortisone (Cortef), 10 MG PO QD@1200 Hydrocortisone (Cortef), 10 MG PO HS Insulin Glargine (Lantus), 10-20 UNITS SC UD Insulin Lispro (Human) (Humalog), 1 DOSE SC ACHS Isosorbide Mononitrate Ext Rel (Imdur Ext Rel), 60 MG PO QAM Lisinopril (Lisinopril), 5 MG PO DAILY Pancrelipase (Lipase-Protease- (Creon), 2 CAP PO TIDM Ranitidine HCl (Ranitidine HCl), 150 MG PO BID Scheduled PRN Albuterol Hfa (Ventolin Hfa), 2 PUFFS INH Q6H PRN for Wheezing Albuterol Sulf (Proventil 0.083% 2.5MG/3ML), 2.5 MG INH QID PRN for Wheezing Alprazolam (Alprazolam), 0.5 MG PO HS PRN for Anxiety/Agitation Dexamethasone Sod Phos (Dexamethasone Sodium Phos), 1 ML IM UD PRN for [place] Disease Hydroxyzine Hcl (Atarax), 50 MG PO HS PRN for Insomnia Mirtazapine (Remeron), 30 MG PO HS PRN for Sleep Review of Systems At least ten systems reviewed and negative except as indicated in HPI. Physical Exam Vital Signs Date Time Temp Pulse Resp B/P (MAP) Pulse Ox O2 Delivery O2 Flow Rate FiO2 01/05/18 00:31 116/72 01/05/18 00:26 75 18 96 01/05/18 00:11 70 19 96 01/05/18 00:01 107/65 01/04/18 23:56 76 18 96 01/04/18 23:41 72 16 95 01/04/18 23:31 114/66 01/04/18 23:26 85 15 98 01/04/18 23:25 83 01/04/18 23:11 75 18 95 01/04/18 23:01 105/68 01/04/18 22:56 75 18 97 2/12/18 22:51 84 24 95 01/04/18 22:31 110/65 01/04/18 22:21 74 97 01/04/18 22:06 75 96 01/04/18 22:01 79 100/63 98 01/04/18 21:50 105/68 01/04/18 21:03 121/72 01/04/18 21:01 84 20 96 01/04/18 20:46 84 15 96 01/04/18 20:31 84 14 105/67 97 01/04/18 20:16 83 97 01/04/18 20:02 102/73 01/04/18 19:34 36.7 102 18 134/73 96 Room Air General Appearance: WD/WN, + mild distress Head: normocephalic, atraumatic Eyes: normal inspection, PERRL, sclerae normal ENT: hearing grossly normal, pharynx normal, + pertinent finding (MMM) Neck: supple, trachea midline Respiratory/Chest: lungs clear, normal breath sounds, no respiratory distress, no accessory muscle use Cardiovascular: regular rate, rhythm, no edema, no gallop, no JVD, no murmur, normal peripheral pulses Abdomen/GI: normal bowel sounds, soft, + tenderness Extremities/Musculoskelatal: normal inspection, no pedal edema Neurologic/Psych: 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 worker II-XII nml as tested, no motor/sensory deficits, alert, normal mood/affect, oriented x 3 Skin: normal color, warm/dry, no rash Diagnostics Laboratory Results Test 01/04/18 21:00 01/04/18 21:05 01/04/18 21:12 01/05/18 02:17 RDW Standard Deviation 53.9 fL (36.4-46.3) RDW Coefficient of Variation 16.3 % (11.5-14.5) White Blood Count 15.86 K/uL (4.8-10.8) Red Blood Count 4.07 M/uL (4.7-6.1) Hemoglobin 12.3 g/dL (14.0-18.0) Hematocrit 36.9 % (42-52) Mean Corpuscular Volume 90.7 fL (80-100) Mean Corpuscular Hemoglobin 30.2 pg (25-34) Mean Corpuscular Hemoglobin Concent 33.3 g/dl (32-36) Platelet Count 137 K/uL (130-400) Mean Platelet Volume 10.5 fL (7.4-10.4) Neutrophils (%) (Auto) 86.1 % Lymphocytes (%) (Auto) 5.9 % Monocytes (%) (Auto) 7.5 % Eosinophils (%) (Auto) 0.1 % Basophils (%) (Auto) 0.1 % Neutrophils # (Auto) 13.66 K/uL (1.4-6.5) Lymphocytes # (Auto) 0.93 K/uL (1.2-3.4) Monocytes # (Auto) 1.19 K/uL (0.11-0.59) Eosinophils # (Auto) 0.02 K/uL (0-0.5) Basophils # (Auto) 0.01 K/uL (0-0.2) Immature Granulocyte % (Auto) 0.3 % Immature Granulocyte # (Auto) 0.05 K/uL (0.00-0.02) Prothrombin Time 10.5 SECONDS (9.0-12.0) Prothromb Time International Ratio 1.0 (0.9-1.1) Est Creatinine Clear Calc Drug Dose 52.1 ml/min Total Bilirubin 0.7 mg/dl (0.2-1) Aspartate Amino Transf (AST/SGOT) 19 U/L (15-37) Alanine Aminotransferase (ALT/SGPT) 19 U/L (12-78) Alkaline Phosphatase 64 U/L (45-117) Troponin I < 0.015 ng/ml (0-0.045) Total Protein 6.4 gm/dl (6.4-8.2) Albumin 2.8 gm/dl (3.4-5.0) Globulin 3.6 gm/dl (2.5-4.0) Albumin/Globulin Ratio 0.8 (0.9-2) Thyroid Stimulating Hormone (TSH) 0.343 uIu/ml (0.300-4.500) Influenza Type A Antigen Neg for Influ A (NEG) Influenza Type B Antigen Neg for Influ B (NEG) Influenza Type A (RT-PCR) Neg for Influ A (NEG) Influenza Type B (RT-PCR) Neg for Influ B (NEG) Bedside Glucose 115 mg/dl (70-99) Test 01/05/18 07:00 Date/Time Source Procedure Growth Status 01/04/18 22:32 Blood Blood Culture Pending Received 2/13/18 02:25 Stool WBC Smear Pending Received Results Past 24 Hours Test 01/04/18 21:00 01/04/18 21:05 Range/Units White Blood Count 15.86 4.8-10.8 K/uL Red Blood Count 4.07 4.7-6.1 M/uL Hemoglobin 12.3 14.0-18.0 g/dL Hematocrit 36.9 42-52 % Mean Corpuscular Volume 90.7 80-100 fL Mean Corpuscular Hemoglobin 30.2 25-34 pg Mean Corpuscular Hemoglobin Concent 33.3 32-36 g/dl Platelet Count 137 130-400 K/uL Mean Platelet Volume 10.5 7.4-10.4 fL Neutrophils (%) (Auto) 86.1 % Lymphocytes (%) (Auto) 5.9 % Monocytes (%) (Auto) 7.5 % Eosinophils (%) (Auto) 0.1 % Basophils (%) (Auto) 0.1 % Neutrophils # (Auto) 13.66 1.4-6.5 K/uL Lymphocytes # (Auto) 0.93 1.2-3.4 K/uL Monocytes # (Auto) 1.19 0.11-0.59 K/uL Eosinophils # (Auto) 0.02 0-0.5 K/uL Basophils # (Auto) 0.01 0-0.2 K/uL RDW Standard Deviation 53.9 36.4-46.3 fL RDW Coefficient of Variation 16.3 11.5-14.5 % Immature Granulocyte % (Auto) 0.3 % Immature Granulocyte # (Auto) 0.05 0.00-0.02 K/uL Prothrombin Time 10.5 9.0-12.0 SECONDS Prothromb Time International Ratio 1.0 0.9-1.1 Sodium Level 136 136-145 mmol/L Potassium Level 2.8 3.5-5.1 mmol/L Chloride Level 101 98-107 mmol/L Carbon Dioxide Level 24 21-32 mmol/L Anion Gap 11.0 3-11 mmol/L Blood Urea Nitrogen 11 7-18 mg/dl Creatinine 1.47 0.60-1.40 mg/dl Est Creatinine Clear Calc Drug Dose 52.1 ml/min Estimated GFR () 58.4 Estimated GFR (Non- 50.4 BUN/Creatinine Ratio 7.6 10-20 Random Glucose 212 70-99 mg/dl Calcium Level 8.5 8.5-10.1 mg/dl Phosphorus Level 1.9 2.5-4.9 mg/dl Magnesium Level 1.6 1.8-2.4 mg/dl Total Bilirubin 0.7 0.2-1 mg/dl Aspartate Amino Transf (AST/SGOT) 19 15-37 U/L Alanine Aminotransferase (ALT/SGPT) 19 12-78 U/L Alkaline Phosphatase 64 45-117 U/L Troponin I < 0.015 0-0.045 ng/ml Total Protein 6.4 6.4-8.2 gm/dl Albumin 2.8 3.4-5.0 gm/dl Globulin 3.6 2.5-4.0 gm/dl Albumin/Globulin Ratio 0.8 0.9-2 Thyroid Stimulating Hormone (TSH) 0.343 0.300-4.500 uIu/ml Influenza Type A Antigen Neg for Influ A NEG Influenza Type B Antigen Neg for Influ B NEG Microbiology Results 01/04/18 Blood Culture, Received Pending 01/04/18 Blood Culture, Received Pending Diagnostic Radiology ABDOMEN 2VIEW W/PA CHEST RTN HISTORY: 62 years-old Male cough, left abd pain, diarrhea acute cough with left-sided abdominal pain COMPARISON: Chest radiographs 12/02/2017, CT abdomen and pelvis 11/30/2017 TECHNIQUE: PA view of the chest with erect and supine views of the abdomen FINDINGS: Cardiomediastinal and hilar silhouettes are within normal limits. No pneumothorax, pleural effusion, focal airspace consolidation or overt pulmonary edema. Bones of the chest appear grossly intact. There are several air-fluid levels noted throughout small bowel in the mid and right abdomen with nonobstructive bowel gas pattern. No pneumoperitoneum on the upright projection. No urolith or acute fracture. Vascular calcifications are seen. IMPRESSION: 1. No acute process of the chest. 2. Nonobstructive bowel gas pattern without pneumoperitoneum. 3. Small bowel air-fluid levels throughout the mid and right abdomen suggest enteritis or ileus. EKG SR PACs 93 Impression Assessment and Plan 62 yo M with worsening abdominal pain, fever, cough. 1. COPD exacerbation-Duonebs, Levaquin, IV solumedrol 2. Acute gastroenteritis-supportive care. Consulted GI because of patient's complicated GI history. H/O recurrent C-diff so will place on contact precautions until stool studies return negative. Suspect drug-seeking behavior and some malingering with abdominal exam. Morphine and oxycodone given as there is evidence of pathology on imaging, however, would be cautious with IV narcotics in this patient. 3. [place]'s disease-on chronic Cortef, no evidence of adrenal crisis. Solumedrol as above and hold Cortef. 4. Collagenous colitis-Questran continued. 5. DMII-ISS/carb coverage with Lantus 6. Depression-cont Fluoxetine. DVT proph-heparin Full Code [facility]po[facility] VTE Prophylaxis VTE Risk Assessment Done? Y/N: Yes Risk Level: Moderate Given or contraindicated: Unfractionated heparin SQ
[2018-01-05] MEDS: ALBUT/IPRATROP 3MG/0.5MG NEB 3 ML VIAL INH SCH ×4 (07:39→20:12)
[2018-01-05 07:48] LABS: CALCIUM 7.9 mg/dl (8.5-10.1); CREATININE 1.09 mg/dl (0.60-1.40)
[2018-01-05 07:59] LABS: PHOSPHORUS 1.4 mg/dl (2.5-4.9)
[2018-01-05] MEDS ORDERED: SODIUM PHOSPHATE 3 MMOL/1 ML INFUSION IV STA (08:14)
[2018-01-05] MEDS ORDERED: SODIUM PHOSPHATE INJ 21 MMOL in SODIUM CHLORIDE 0.9% 500ML 500 ML IV ONE (09:00)
[2018-01-05] MEDS ORDERED: INSULIN GLARGINE SOLOSTAR 100 UNITS/ML 3 ML PEN SC SCH ×2 (09:00→16:45)
[2018-01-05] MEDS: LISINOPRIL 5 MG TAB PO SCH (09:21)
[2018-01-05] MEDS: ASPIRIN 81 MG ECTAB PO SCH (09:21)
[2018-01-05] MEDS: PANCREAZE (LIPASE 10,500U) CAP PO SCH ×3 (09:21→18:18)
[2018-01-05] MEDS: ISOSORBIDE MONONITRATE 60 MG TABCR PO SCH (09:22)
[2018-01-05] MEDS: FLUOXETINE HCL 20 MG CAP PO SCH (09:22)
[2018-01-05] MEDS: ATORVASTATIN 40 MG TAB PO SCH (09:22)
[2018-01-05] MEDS: CHOLESTYRAMINE LIGHT 4 GM PKT PO SCH ×2 (09:23→21:15)
[2018-01-05] MEDS: RANITIDINE HCL 150 MG TAB PO SCH ×2 (09:23→21:09)
--- NOTE | 2018-01-05 09:36 | Gastrointestinal Consultation ---
Gastrointestinal Consultation Date of Consultation: Jan 05, 2018 Attending Physician: Dr. Shankar Consulting Physician: Dr. Ferreira Reason for Consultation: abdominal pain, ? enteritis, microscopic colitis History of Present Illness Patient is a 62 year old male patient of Dr. Lin, who presented to the ED with abdominal pain/diarrhea for which GI is consulted. He is followed in GI clinic by Dr. Keith for chronic diarrhea, likely multifactorial w/ microscopic colitis, diabetes causing poor sphincter control, ETOH use, recurrent c.diff and pancreatic insufficiency. There is question of a diagnosis of ulcerative colitis, diagnosis has not been confirmed. Had stool fat and volume check which showed large amt of stool w fat content. His most recent EGD was on 12/31/[address] Keith for heartburn and was normal. at the time of his most recent office visit in June 2017, his diarrhea was being medically managed with rectal hydrocortisone, questran, lomotil, pancreatic enzymes and clonidine. A review of the meds he is on at the time of admission shows that he is no longer using the rectal suppositories, he uses the lomotil BID and he is no longer on clonidine. He remains on Questran 2 packs twice a day. At baseline he passes about 4 loose BMs/day. During the past week, he had increased volume liquid BMs. On Thursday he was tired , cramping, and fever to 100.3 and up to 6-10 BM that day, even more BMs on Thursday. Yesterday, he became weak, dizzy, hypotensive (100/62 at home) and presented to the ED. No blood in BMs. One episode of vomiting on Thursday w/of hematemesis. On arrival WBC was 15 (today 13.9), K was 2.8 (today 4.0), Mg was 1.6, (today 1.9). Hb has been stable at 12.3 on arrival, 11.7 today. Abd x-ray with air/ fluid in the small bowel suggestive of enteritis or ileus. CT abd/pelvis with IV contrast on 11/30/17 did not show any acute abnormalities. Most recent colonoscopy was 02/20/[address] Deal for diarrhea with erythematous/granular tissue through the entire colon. Random colon bx were consistent with lymphocytic colitis. Past Medical/Surgical History Medical Problems: (1) Colitis Status: Acute (2) Dehydration Status: Acute (3) Diarrhea Status: Acute (4) Diarrhea Status: Acute (5) Failure of outpatient treatment Status: Acute (6) Hypokalemia Status: Acute (7) Hypomagnesemia Status: Acute (8) Hypotension Status: Acute (9) Hypotension Status: Acute (10) Left sided abdominal pain Status: Acute (11) Pyelonephritis Status: Acute (12) Renal failure, acute Status: Acute (13) Sepsis Status: Acute (14) Sepsis Status: Acute Past Medical History: 1. CAD, Hs of ID 2. COPD 3. C-diff 4. Adrenal insufficiency 5. Microscopic colitis 6. ? UC 7. DM 8. Asthma 9. Pyelonephritis Past Surgical History: 1. Multiple endoscopies 2. Rt knee arthroscopic surgery 3. Elbow dislocation Family History Diabetes mellitus FATHER MOTHER Social History Smoking Status: Current Every Day Smoker Alcohol Use: occasionally Drug Use: none Marital Status: Housing Status: lives with family Occupation Status: retired Allergies Coded Allergies: Azathioprine (Verified Adverse Reaction, Unknown, RENAL COMPLICATIONS, 11/30) Current Medications Home Meds and Scripts Medications Dose Route/Sig Max Daily Dose Days Date Category Dose Instructions Questran (Cholestyramine) 4 Gm Pow 4 Gm PO BID 01/04/18 Reported Lisinopril 5 Mg Tab 5 Mg PO DAILY 01/04/18 Reported Aspirin Ec (Aspirin) 81 Mg Tab 81 Mg PO DAILY 01/04/18 Reported Ventolin Hfa (Albuterol) 200 Puffs/12950 Mcg Aers 2 Puffs INH Q6H PRN 01/04/18 Reported Remeron (Mirtazapine) 30 Mg Tab 30 Mg PO HS PRN 01/04/18 Reported Alprazolam 0.5 Mg Tab 0.5 Mg PO HS PRN 01/04/18 Reported Ranitidine HCl 150 Mg Tab 150 Mg PO BID 01/04/18 Reported Diphenoxylate/Atropine 2.5-0.025 mg (Diphenoxylate HCl/Atropine) 1 Tab Tab 1 Tab PO TID 01/04/18 Reported Creon (Pancrelipase (Lipase-Protease-) 1 Cap Cap 2 Cap PO TIDM 11/30/17 Reported 1 capsule with meals Cortef (Hydrocortisone) 10 Mg Tab 10 Mg PO HS 09/13/17 Reported Cortef (Hydrocortisone) 10 Mg Tab 10 Mg PO QD@1200 09/13/17 Reported TAKE THIS MEDICATION WITH LUNCH Cortef (Hydrocortisone) 10 Mg Tab 25 Mg PO QAM 09/13/17 Reported Atarax (Hydroxyzine Hcl) 50 Mg Tab 50 Mg PO HS PRN 06/25/17 Reported Proventil 0.083% 2.5MG/3ML (Albuterol Sulf) 2.5 Mg/3 Ml Nebu 2.5 Mg INH QID PRN 05/21/17 Reported Fluoxetine HCl 20 Mg Cap 20 Mg PO QAM 05/21/17 Reported Humalog (Insulin Lispro (Human)) 100 Unit/Ml Inj 1 Dose SC ACHS 05/03/17 Reported COVERAGE DIRECTED BY SLIDING SCALE Lantus (Insulin Glargine) 100 Unit/Ml Inj 10-20 Units SC UD 04/20/17 Reported USE DIRECTED Lipitor (Atorvastatin Calcium) 80 Mg Tab 80 Mg PO DAILY 02/19/17 Reported Dexamethasone Sodium Phos (Dexamethasone Sod Phos) 4 Mg/Ml Inj 1 Ml IM UD PRN 02/19/17 Reported DIRECTED FOR EMERGENCY TREATMENT Imdur Ext Rel (Isosorbide Mononitrate) 60 Mg Ertab 60 Mg PO QAM 04/08/16 Reported Review of Systems Constitutional: + fever (resolved), No chills, No sweats, No weight loss, No weakness Eyes: No eye pain, No redness ENT: No sore throat, No trouble swallowing, No pain on swallowing Respiratory: + cough (chronic, no recent worsening), + wheezing (a little worse than normal ), + shortness of breath (slightly worse than at baseline), No dyspnea on exertion Cardiac: + chest pain (when asked about chest pain, he reports that on Thursday , he had right sided quick sharp jabs), No edema, No palpitations Abdomen: + see HPI, + pain, + nausea, + vomiting Neuro: No memory loss, No weakness, No numbness/tingling, No vertigo, No balance problems Psych: No depression symptoms, No anxiety, No insomnia Heme: No abnormal bleeding/bruising, No night sweats Endo: No excessive thirst, No excessive urination Skin: No rash, No itch, No new/changing skin lesions, No jaundice Physical Exam Date Time Temp Pulse Resp B/P (MAP) Pulse Ox O2 Delivery O2 Flow Rate FiO2 01/05/18 03:30 36.4 79 17 126/74 (91) 97 Room Air 126/80 (95) 126/71 (89) 01/05/18 01:29 36.5 73 17 120/72 (88) 95 Room Air 01/05/18 01:15 36.5 17 120/72 Room Air 01/05/18 01:15 Room Air 01/05/18 00:31 116/72 01/05/18 00:26 75 18 96 01/05/18 00:11 70 19 96 01/05/18 00:01 107/65 01/04/18 23:56 76 18 96 01/04/18 23:41 72 16 95 01/04/18 23:31 114/66 01/04/18 23:26 85 15 98 01/04/18 23:25 83 01/04/18 23:11 75 18 95 01/04/18 23:01 105/68 01/04/18 22:56 75 18 97 01/04/18 22:51 84 24 95 01/04/18 22:31 110/65 01/04/18 22:21 74 97 01/04/18 22:06 75 96 01/04/18 22:01 79 100/63 98 01/04/18 21:50 105/68 01/04/18 21:03 121/72 01/04/18 21:01 84 20 96 01/04/18 20:46 84 15 96 01/04/18 20:31 84 14 105/67 97 01/04/18 20:16 83 97 01/04/18 20:02 102/73 01/04/18 19:34 36.7 102 18 134/73 96 Room Air General Appearance: no apparent distress Eyes: normal inspection, EOMI Neck: supple, no adenopathy, thyroid normal Respiratory/Chest: chest non-tender, no accessory muscle use, + crackles (left base), + wheezing (throughout, on expiration) Cardiovascular: regular rate, rhythm, no JVD, no murmur Abdomen: normal bowel sounds, non tender, soft, no organomegaly, + pertinent finding (did not c/o abdomen pain during palpation, was talking about other symptoms at that time) Extremities: normal inspection, no pedal edema, normal capillary refill Neurologic/Psych: alert, normal mood/affect, oriented x 3 Skin: normal color, no jaundice, warm/dry, no rash Laboratory Results Last 24 Hours Test 01/04/18 21:00 01/04/18 21:05 01/04/18 21:12 01/05/18 02:17 White Blood Count 15.86 K/uL Red Blood Count 4.07 M/uL Hemoglobin 12.3 g/dL Hematocrit 36.9 % Mean Corpuscular Volume 90.7 fL Mean Corpuscular Hemoglobin 30.2 pg Mean Corpuscular Hemoglobin Concent 33.3 g/dl Platelet Count 137 K/uL Mean Platelet Volume 10.5 fL Neutrophils (%) (Auto) 86.1 % Lymphocytes (%) (Auto) 5.9 % Monocytes (%) (Auto) 7.5 % Eosinophils (%) (Auto) 0.1 % Basophils (%) (Auto) 0.1 % Neutrophils # (Auto) 13.66 K/uL Lymphocytes # (Auto) 0.93 K/uL Monocytes # (Auto) 1.19 K/uL Eosinophils # (Auto) 0.02 K/uL Basophils # (Auto) 0.01 K/uL RDW Standard Deviation 53.9 fL RDW Coefficient of Variation 16.3 % Immature Granulocyte % (Auto) 0.3 % Immature Granulocyte # (Auto) 0.05 K/uL Prothrombin Time 10.5 SECONDS Prothromb Time International Ratio 1.0 Sodium Level 136 mmol/L Potassium Level 2.8 mmol/L Chloride Level 101 mmol/L Carbon Dioxide Level 24 mmol/L Anion Gap 11.0 mmol/L Blood Urea Nitrogen 11 mg/dl Creatinine 1.47 mg/dl Est Creatinine Clear Calc Drug Dose 52.1 ml/min Estimated GFR () 58.4 Estimated GFR (Non- 50.4 BUN/Creatinine Ratio 7.6 Random Glucose 212 mg/dl Calcium Level 8.5 mg/dl Phosphorus Level 1.9 mg/dl Magnesium Level 1.6 mg/dl Total Bilirubin 0.7 mg/dl Aspartate Amino Transf (AST/SGOT) 19 U/L Alanine Aminotransferase (ALT/SGPT) 19 U/L Alkaline Phosphatase 64 U/L Troponin I < 0.015 ng/ml Total Protein 6.4 gm/dl Albumin 2.8 gm/dl Globulin 3.6 gm/dl Albumin/Globulin Ratio 0.8 Thyroid Stimulating Hormone (TSH) 0.343 uIu/ml Influenza Type A Antigen Neg for Influ A Influenza Type B Antigen Neg for Influ B Influenza Type A (RT-PCR) Neg for Influ A Influenza Type B (RT-PCR) Neg for Influ B Bedside Glucose 115 mg/dl Test 01/05/18 07:00 White Blood Count 13.90 K/uL Red Blood Count 3.86 M/uL Hemoglobin 11.7 g/dL Hematocrit 35.0 % Mean Corpuscular Volume 90.7 fL Mean Corpuscular Hemoglobin 30.3 pg Mean Corpuscular Hemoglobin Concent 33.4 g/dl RDW Standard Deviation 53.8 fL RDW Coefficient of Variation 16.3 % Platelet Count 117 K/uL Mean Platelet Volume 10.2 fL Sodium Level 137 mmol/L Potassium Level 4.0 mmol/L Chloride Level 109 mmol/L Carbon Dioxide Level 21 mmol/L Anion Gap 7.0 mmol/L Blood Urea Nitrogen 9 mg/dl Creatinine 1.09 mg/dl Est Creatinine Clear Calc Drug Dose 70.3 ml/min Estimated GFR () 83.9 Estimated GFR (Non- 72.4 BUN/Creatinine Ratio 8.2 Random Glucose 172 mg/dl Calcium Level 7.9 mg/dl Phosphorus Level 1.4 mg/dl Magnesium Level 1.9 mg/dl Impression Patient is a 62 year old male with acute on chronic diarrhea. He had a recent fever and sick family contact. C-diff is negative. Most likely this represents a viral gastroenteritis. Plan 1. Appreciate coordination of supportive care by primary services: IV fluids, electrolyte replacement. 2. Increase Lomotil to TID. 3. No GI indication for antibiotics. 4. No diagnostic testing recommended at this point as he has had a fairly recent EGD, Colonoscopy (within one year) and CT a few weeks ago. 5. Will review stool culture, O&P, Giardia when available.
[2018-01-05] MEDS: DIPHENOXYLATE/ATROPINE 2.5/0.025MG TAB PO SCH ×2 (12:00→18:18)
--- NOTE | 2018-01-05 13:37 | Pharmacy Progress Note ---
Glycemic Control Intl Consult Date of Service Jan 05, 2018. Scope Glycemic Pharmacist consulted by Dr Shankar on 01/04/18 for glycemic control and to write orders per [facility] inpatient glycemic control protocol Objective Weight (Kilograms): 77.600 Accuchecks BSG (last 24hrs): Test 01/04/18 21:00 01/05/18 02:17 01/05/18 07:00 Random Glucose 212 mg/dl (70-99) 172 mg/dl (70-99) Bedside Glucose 115 mg/dl (70-99) Laboratory Data (last 24hrs) Test 01/04/18 21:00 01/05/18 07:00 Anion Gap 11.0 mmol/L 7.0 mmol/L BUN/Creatinine Ratio 7.6 8.2 Blood Urea Nitrogen 11 mg/dl 9 mg/dl Creatinine 1.47 mg/dl 1.09 mg/dl Potassium Level 2.8 mmol/L 4.0 mmol/L Sodium Level 136 mmol/L 137 mmol/L White Blood Count 15.86 K/uL 13.90 K/uL Red Blood Count 4.07 M/uL Hemoglobin 12.3 g/dL Hematocrit 36.9 % Mean Corpuscular Volume 90.7 fL Mean Corpuscular Hemoglobin 30.2 pg Mean Corpuscular Hemoglobin Concent 33.3 g/dl Platelet Count 137 K/uL Mean Platelet Volume 10.5 fL Neutrophils (%) (Auto) 86.1 % Lymphocytes (%) (Auto) 5.9 % Monocytes (%) (Auto) 7.5 % Eosinophils (%) (Auto) 0.1 % Basophils (%) (Auto) 0.1 % Neutrophils # (Auto) 13.66 K/uL Lymphocytes # (Auto) 0.93 K/uL Monocytes # (Auto) 1.19 K/uL Eosinophils # (Auto) 0.02 K/uL Basophils # (Auto) 0.01 K/uL Recent Pertinent Medications Outpatient Anti-diabetic Regimen: * Lantus 10-20 units SQ daily * Humalog AC The patient is currently receiving: * Basal insulin: Lantus 19 units every 12 hours * Correctional Insulin: Novolog Correction per scale ACHS Goal Range: Low 120 mg/dL - High 160 mg/dL Correction Factor: 20 mg/dL/unit * Prandial insulin: Per carb ratio of 1 unit per 7 grams CHO consumed Risk Factors for Insulin Resistance: * Steroids * Infection * Diet Assessment & Plan ASSESSMENT: * 62yo T2DM male well known to pharmacy from previous admissions/glycemic consults * Pt typically requires ~ 30-40 units of insulin per day while admitted, however , pt is ordered RTC high dose IV solumedrol 40mg IV Q6hrs. * An additional ~ 0.4 units/kg/day (31 units) will be needed to for this severe steroid induced hyperglycemia - this equates to weight and a stress of 3 dosing per [facility] insulin calculator * Provider ordered adequate dosing, but full 24hr dose needed x 1 to serve as loading dose. * Will change from 30-40 units/day to ~ 70-80 units/day for steroid induced hyperglycemia PLAN FOR INPATIENT GLYCEMIC CONTROL: * Basal insulin * Lantus 19 units SQ BID * Start with Lantus load today of 30 units SQ x 1 then 19 units SQ BID * Typically full 24hr insulin dose if given first (39 units) then start 19 units SQ BID but will give slightly less d/t history of hypo and labile BSGs * Bolus insulin * NovoLog per scale ACHS or Q6hrs while NPO * Goal Range: Low 120 mg/dL - High 160 mg/dL * Correction Factor: 20 mg/dL/unit * Nutritional / Prandial insulin per carb ratio of 1 unit per 7 grams CHO consumed * Please note that the plan above was derived based on current level of insulin resistance and hospital stress. These recommendations are appropriate for inpatient admission only. Plan of care upon discharge will need to be reassessed to avoid potential outpatient hypo/hyperglycemia. Thank you.
--- NOTE | 2018-01-05 18:14 | Progress Note ---
Subjective Date of Service: Jan 05, 2018. Subjective Pt evaluation today including: conversation w/ patient, physical exam, lab review, review of studies, review of inpatient medication list Saw/examined the patient in room 352 He is doing well today. Lomotil dose increased and he states he feels much better already Tells me he is okay to stay the night but very eager to get discharged in AM. No fevers/chills, no nausea/vomiting/diarrhea. Problem List Medical Problems: (1) Colitis Status: Acute (2) Dehydration Status: Acute (3) Diarrhea Status: Acute (4) Diarrhea Status: Acute (5) Failure of outpatient treatment Status: Acute (6) Hypokalemia Status: Acute (7) Hypomagnesemia Status: Acute (8) Hypotension Status: Acute (9) Hypotension Status: Acute (10) Left sided abdominal pain Status: Acute (11) Pyelonephritis Status: Acute (12) Renal failure, acute Status: Acute (13) Sepsis Status: Acute (14) Sepsis Status: Acute Review of Systems Constitutional: + fever (resolved), No chills Respiratory: No cough, No shortness of breath Cardiac: No chest pain Abdomen: No pain, No nausea, No vomiting, No diarrhea Male : No dysuria, No urinary frequency Psychiatric: No depression symptoms, No anxiety, No insomnia Medications Current Inpatient Medications Medications (Trade) Dose Ordered Sig/Tisha Route Start Time Stop Time Status Last Admin Dose Admin Heparin Sodium (Porcine) (Heparin Sq 5000 Unit/0.5ml) 5,000 unit Q8H SQ 01/05/18 06:00 02/04/18 05:59 01/05/18 14:17 5,000 UNIT Acetaminophen (Tylenol Tab) 650 mg Q4H PRN PO 01/05/18 00:45 02/04/18 00:44 Ondansetron HCl (Zofran Inj) 4 mg Q6H PRN IV 01/05/18 00:45 02/04/18 00:44 Insulin Glargine (Lantus Solostar Pen) 19 units Q12 SC 01/05/18 09:00 02/04/18 08:59 Future hold 01/05/18 10:38 19 UNITS Insulin Aspart (novoLOG ASPART) SLIDING SCALE If C... ACHS SC 2/13/18 02:00 02/04/18 01:59 01/05/18 14:19 12 UNITS Glucose (Glucose 40% Gel) 15-30 GRAMS 15 GRAMS... UD PRN PO 01/05/18 00:45 02/04/18 00:44 Glucose (Glucose Chew Tab) 4-8 Tablets 4 Tabl... UD PRN PO 01/05/18 00:45 02/04/18 00:44 Dextrose (Dextrose 50% 50ML Syringe) 25-50ML OF 50% DW IV FOR... UD PRN IV 01/05/18 00:45 02/04/18 00:44 Glucagon (Glucagon Inj) 1 mg UD PRN SQ 01/05/18 00:45 02/04/18 00:44 Miscellaneous Information (Consult Glycemic Management Pharmacy) 1 ea UD PRN N/A 01/05/18 01:30 02/04/18 01:29 Albuterol/ Ipratropium (Duoneb) 3 ml QIDR INH 01/05/18 08:00 02/04/18 07:59 01/05/18 15:42 3 ML Sodium Chloride 1,000 ml @ 100 mls/hr Q10H IV 01/05/18 01:30 01/05/18 21:29 01/05/18 11:30 100 MLS/HR Oxycodone HCl (Roxicodone Immediate Rel Tab) 5 mg Q4H PRN PO 01/05/18 00:45 01/19/18 00:44 01/05/18 03:50 5 MG Morphine Sulfate (MoRPHine SULFATE INJ) 4 mg Q4H PRN IV 01/05/18 00:45 01/19/18 00:44 01/05/18 05:16 4 MG Levofloxacin 750 mg/Prmx 150 ml @ 100 mls/hr Q24H IV 01/05/18 02:00 01/12/18 01:59 01/05/18 02:17 100 MLS/HR Alprazolam (Xanax Tab) 0.5 mg HS PRN PO 01/05/18 01:00 02/04/18 00:59 Aspirin (Ecotrin Tab) 81 mg DAILY PO 01/05/18 09:00 02/04/18 08:59 01/05/18 09:21 81 MG Atorvastatin Calcium (Lipitor Tab) 80 mg DAILY PO 01/05/18 09:00 02/04/18 08:59 01/05/18 09:22 80 MG Dexamethasone Sodium Phosphate (Decadron Inj) 4 mg UD PRN IM 01/05/18 01:00 02/04/18 00:59 Fluoxetine HCl (Prozac Cap) 20 mg QAM PO 01/05/18 09:00 02/04/18 08:59 01/05/18 09:22 20 MG Hydroxyzine HCl (Vistaril Tab) 50 mg HS PRN PO 01/05/18 01:00 02/04/18 00:59 Isosorbide Mononitrate (Imdur Ext Rel Tab) 60 mg QAM PO 01/05/18 09:00 02/04/18 08:59 01/05/18 09:22 60 MG Lisinopril (Zestril Tab) 5 mg DAILY PO 01/05/18 09:00 02/04/18 08:59 01/05/18 09:21 5 MG Mirtazapine (Remeron Tab) 30 mg HS PRN PO 01/05/18 01:00 02/04/18 00:59 Ranitidine HCl (zANTac TAB) 150 mg BID PO 01/05/18 09:00 02/04/18 08:59 01/05/18 09:23 150 MG Cholestyramine Resin (Questran Powder Light) 4 gm BID@1000,2200 PO 01/05/18 10:00 02/04/18 09:59 01/05/18 09:23 4 GM Amylase/Lipase/ Protease (Pancreaze (Lipase 10,500U) Cap) 4 cap TIDM PO 01/05/18 08:30 02/04/18 08:29 01/05/18 14:10 4 CAP Methylprednisolone Sodium Succinate 40 mg/Syringe 0.64 ml @ 1.5 mls/min Q6H IV 01/05/18 02:00 02/04/18 01:59 01/05/18 14:28 1.5 MLS/MIN Diphenoxylate HCl/ Atropine (Lomotil Tab) 1 tab AC PO 01/05/18 12:00 02/04/18 11:59 Insulin Glargine (Lantus Solostar Pen) 30 units TODAY@1645 SC 01/05/18 16:45 01/05/18 18:00 Objective Vital Signs Date Time Temp Pulse Resp B/P (MAP) Pulse Ox O2 Delivery O2 Flow Rate FiO2 01/05/18 15:42 68 16 94 Room Air 01/05/18 15:30 Room Air 01/05/18 14:59 36.4 64 16 121/74 (90) 92 Room Air 01/05/18 08:41 Room Air 01/05/18 07:39 73 16 99 Room Air 01/05/18 07:10 36.6 78 15 124/76 (92) 94 Room Air 01/05/18 03:30 36.4 79 17 126/74 (91) 97 Room Air 126/80 (95) 126/71 (89) 01/05/18 01:29 36.5 73 17 120/72 (88) 95 Room Air 01/05/18 01:15 36.5 17 120/72 Room Air 01/05/18 01:15 Room Air 01/05/18 00:31 116/72 01/05/18 00:26 75 18 96 01/05/18 00:11 70 19 96 01/05/18 00:01 107/65 01/04/18 23:56 76 18 96 01/04/18 23:41 72 16 95 01/04/18 23:31 114/66 01/04/18 23:26 85 15 98 01/04/18 23:25 83 01/04/18 23:11 75 18 95 01/04/18 23:01 105/68 01/04/18 22:56 75 18 97 01/04/18 22:51 84 24 95 01/04/18 22:31 110/65 01/04/18 22:21 74 97 01/04/18 22:06 75 96 01/04/18 22:01 79 100/63 98 01/04/18 21:50 105/68 01/04/18 21:03 121/72 01/04/18 21:01 84 20 96 01/04/18 20:46 84 15 96 01/04/18 20:31 84 14 105/67 97 01/04/18 20:16 83 97 01/04/18 20:02 102/73 01/04/18 19:34 36.7 102 18 134/73 96 Room Air Physical Exam General Appearance: no apparent distress Respiratory/Chest: lungs clear, normal breath sounds, no respiratory distress, no accessory muscle use Cardiovascular: regular rate, rhythm, no edema, no murmur Abdomen: normal bowel sounds, non tender, soft Extremities: normal inspection, no pedal edema Laboratory Results Last 24 Hours Test 01/04/18 21:00 01/04/18 21:05 01/04/18 21:12 01/05/18 02:17 White Blood Count 15.86 K/uL Red Blood Count 4.07 M/uL Hemoglobin 12.3 g/dL Hematocrit 36.9 % Mean Corpuscular Volume 90.7 fL Mean Corpuscular Hemoglobin 30.2 pg Mean Corpuscular Hemoglobin Concent 33.3 g/dl Platelet Count 137 K/uL Mean Platelet Volume 10.5 fL Neutrophils (%) (Auto) 86.1 % Lymphocytes (%) (Auto) 5.9 % Monocytes (%) (Auto) 7.5 % Eosinophils (%) (Auto) 0.1 % Basophils (%) (Auto) 0.1 % Neutrophils # (Auto) 13.66 K/uL Lymphocytes # (Auto) 0.93 K/uL Monocytes # (Auto) 1.19 K/uL Eosinophils # (Auto) 0.02 K/uL Basophils # (Auto) 0.01 K/uL RDW Standard Deviation 53.9 fL RDW Coefficient of Variation 16.3 % Immature Granulocyte % (Auto) 0.3 % Immature Granulocyte # (Auto) 0.05 K/uL Prothrombin Time 10.5 SECONDS Prothromb Time International Ratio 1.0 Sodium Level 136 mmol/L Potassium Level 2.8 mmol/L Chloride Level 101 mmol/L Carbon Dioxide Level 24 mmol/L Anion Gap 11.0 mmol/L Blood Urea Nitrogen 11 mg/dl Creatinine 1.47 mg/dl Est Creatinine Clear Calc Drug Dose 52.1 ml/min Estimated GFR () 58.4 Estimated GFR (Non- 50.4 BUN/Creatinine Ratio 7.6 Random Glucose 212 mg/dl Calcium Level 8.5 mg/dl Phosphorus Level 1.9 mg/dl Magnesium Level 1.6 mg/dl Total Bilirubin 0.7 mg/dl Aspartate Amino Transf (AST/SGOT) 19 U/L Alanine Aminotransferase (ALT/SGPT) 19 U/L Alkaline Phosphatase 64 U/L Troponin I < 0.015 ng/ml Total Protein 6.4 gm/dl Albumin 2.8 gm/dl Globulin 3.6 gm/dl Albumin/Globulin Ratio 0.8 Thyroid Stimulating Hormone (TSH) 0.343 uIu/ml Influenza Type A Antigen Neg for Influ A Influenza Type B Antigen Neg for Influ B Influenza Type A (RT-PCR) Neg for Influ A Influenza Type B (RT-PCR) Neg for Influ B Bedside Glucose 115 mg/dl Test 01/05/18 07:00 01/05/18 08:28 01/05/18 12:26 01/05/18 16:52 White Blood Count 13.90 K/uL Red Blood Count 3.86 M/uL Hemoglobin 11.7 g/dL Hematocrit 35.0 % Mean Corpuscular Volume 90.7 fL Mean Corpuscular Hemoglobin 30.3 pg Mean Corpuscular Hemoglobin Concent 33.4 g/dl RDW Standard Deviation 53.8 fL RDW Coefficient of Variation 16.3 % Platelet Count 117 K/uL Mean Platelet Volume 10.2 fL Sodium Level 137 mmol/L Potassium Level 4.0 mmol/L Chloride Level 109 mmol/L Carbon Dioxide Level 21 mmol/L Anion Gap 7.0 mmol/L Blood Urea Nitrogen 9 mg/dl Creatinine 1.09 mg/dl Est Creatinine Clear Calc Drug Dose 70.3 ml/min Estimated GFR () 83.9 Estimated GFR (Non- 72.4 BUN/Creatinine Ratio 8.2 Random Glucose 172 mg/dl Calcium Level 7.9 mg/dl Phosphorus Level 1.4 mg/dl Magnesium Level 1.9 mg/dl Bedside Glucose 195 mg/dl 237 mg/dl 222 mg/dl Assessment and Plan This is a 62 year old male with a PMH of Matthew's disease, COPD, HTN, depression/anxiety, hx. of microscopic colitis/recurrent C. diff - presents with fevers/shakiness/abdominal pain. Nonspecific Enteritis, likely Viral appreciate GI input will increase Lomotil to three times daily with meals IVFs Zofran PRN stop antibiotics C. diff is negative COPD does not appear to be in exacerbation possibly improved due to nebulizers continue nebs as needed stop IV solu-medrol and continue hydrocortisone Matthew's continue hydrocortisone HTN blood pressure stable continue Lisinopril Hx. of [place] continue aspirin, statin no current issues with chest pain/pressure DVT ppx subq heparin FULL CODE
[2018-01-05] MEDS ORDERED: HYDROCORTISONE 10 MG TAB PO SCH (21:00)
[2018-01-06] VITALS (7 sets, daily range): BP systolic 124–137; BP diastolic 77–84; PULSE 57–74; TEMP 36.6; O2SAT 97–99
[2018-01-06] MEDS: HEPARIN SOD 5000 UNIT/0.5 ML CARP SQ SCH (06:30)
[2018-01-06] MEDS: ALBUT/IPRATROP 3MG/0.5MG NEB 3 ML VIAL INH SCH ×2 (07:17→11:07)
[2018-01-06] MEDS: LISINOPRIL 5 MG TAB PO SCH (08:36)
[2018-01-06] MEDS: FLUOXETINE HCL 20 MG CAP PO SCH (08:36)
[2018-01-06] MEDS: DIPHENOXYLATE/ATROPINE 2.5/0.025MG TAB PO SCH ×2 (08:36→12:00)
[2018-01-06] MEDS: RANITIDINE HCL 150 MG TAB PO SCH (08:39)
[2018-01-06] MEDS: ISOSORBIDE MONONITRATE 60 MG TABCR PO SCH (08:39)
[2018-01-06] MEDS: ASPIRIN 81 MG ECTAB PO SCH (08:39)
[2018-01-06] MEDS: ATORVASTATIN 40 MG TAB PO SCH (08:39)
[2018-01-06] MEDS: PANCREAZE (LIPASE 10,500U) CAP PO SCH ×2 (08:40→12:30)
[2018-01-06] MEDS: CHOLESTYRAMINE LIGHT 4 GM PKT PO SCH (08:42)
--- NOTE | 2018-01-06 08:57 | Clinical Documentation Query ---
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 ( ) Not Agree ( ) Other explanation of clinical findings (Please Explain) ( ) Unable to determine (Please Define) ( ) Need to Discuss The medical record reflects the following clinical findings, treatment, and risk factors. Clinical Indicators: Creatinine 1.47, Potassium 2.8, after treatment creatinine normalized to 1.09 Treatment: IVF's, daily PRP's, Risk Factors: Age, recent N/V, Please clarify and document your clinical opinion in the progress notes and discharge summary. Terms such as "probable", "suspected", "likely", "questionable", "possible", or "still to be ruled out" are acceptable. IF IN AGREEMENT, YOU MUST DOCUMENT ABOVE DIAGNOSTIC STATEMENT IN DAILY PROGRESS NOTES AND DISCHARGE SUMMARY. This document is not part of the patient's record. Thank You, Trevon Vazquez, RN [phone]
[2018-01-06] MEDS ORDERED: HYDROCORTISONE 10 MG TAB PO SCH ×2 (09:00→12:00)
[2018-01-06 09:05] LABS: HEMOGLOBIN 11.5 g/dL (14.0-18.0); MEAN CELL VOLUME 90.9 fL (80-100); MEAN CORPUSCULAR HEMOGLOBIN 29.9 pg (25-34); MEAN CORPUSCULAR HGB CONC 32.9 g/dl (32-36); MEAN PLATELET VOLUME 10.4 fL (7.4-10.4); PLATELET COUNT 146 K/uL (130-400); RED CELL DISTRIBUTION WIDTH CV 16.1 % (11.5-14.5); RED CELL DISTRIBUTION WIDTH SD 53.4 fL (36.4-46.3)
--- NOTE | 2018-01-06 09:28 | Gastroenterology Progress Note ---
Progress Note Date of Service: Jan 06, 2018 Subjective Pt evaluation today including: conversation w/ patient, physical exam, chart review, lab review Pt was seen and evaluated, chart reviewed. Morning labs pt. Pt notes that his symptoms are back to baseline. Moving his bowels less frequent with less urgency. No nausea, vomiting. Tolerating diet. His abdominal pain is also back to his baseline. Generalized, constant. No fever, chills, CP, SOB. Feels well and wants to go home. Still a lot of personal stress, his own health, 's health, grieving loss of nephew. KUB: No acute process of the chest.Nonobstructive bowel gas pattern without pneumoperitoneum.Small bowel air-fluid levels throughout the mid and right abdomen suggest enteritis or ileus. Cdiff: negative Culture: pending Review of Systems Constitutional: No fever, No chills, No sweats, No weight loss, No weakness Respiratory: No cough, No sputum, No shortness of breath, No dyspnea on exertion Cardiac: No chest pain, No orthopnea, No edema Abdomen: + pain, + diarrhea, No nausea, No vomiting, No constipation, No GI bleeding, No dysphagia, No odynophagia Musculoskeletal: No swelling Male : No dysuria Neuro: No memory loss, No weakness Endo: No fatigue Skin: No rash, No jaundice Medications Current Inpatient Medications Medications (Trade) Dose Ordered Sig/Tisha Route Start Time Stop Time Status Last Admin Dose Admin Heparin Sodium (Porcine) (Heparin Sq 5000 Unit/0.5ml) 5,000 unit Q8H SQ 01/05/18 06:00 02/04/18 05:59 01/06/18 06:30 5,000 UNIT Acetaminophen (Tylenol Tab) 650 mg Q4H PRN PO 01/05/18 00:45 02/04/18 00:44 Ondansetron HCl (Zofran Inj) 4 mg Q6H PRN IV 01/05/18 00:45 02/04/18 00:44 Insulin Aspart (novoLOG ASPART) SLIDING SCALE If C... ACHS SC 01/05/18 02:00 02/04/18 01:59 01/05/18 21:18 1 UNITS Glucose (Glucose 40% Gel) 15-30 GRAMS 15 GRAMS... UD PRN PO 01/05/18 00:45 3/15/18 00:44 Glucose (Glucose Chew Tab) 4-8 Tablets 4 Tabl... UD PRN PO 01/05/18 00:45 02/04/18 00:44 Dextrose (Dextrose 50% 50ML Syringe) 25-50ML OF 50% DW IV FOR... UD PRN IV 01/05/18 00:45 02/04/18 00:44 Glucagon (Glucagon Inj) 1 mg UD PRN SQ 01/05/18 00:45 02/04/18 00:44 Miscellaneous Information (Consult Glycemic Management Pharmacy) 1 ea UD PRN N/A 01/05/18 01:30 02/04/18 01:29 Albuterol/ Ipratropium (Duoneb) 3 ml QIDR INH 01/05/18 08:00 02/04/18 07:59 01/06/18 07:17 3 ML Oxycodone HCl (Roxicodone Immediate Rel Tab) 5 mg Q4H PRN PO 01/05/18 00:45 01/19/18 00:44 01/05/18 03:50 5 MG Morphine Sulfate (MoRPHine SULFATE INJ) 4 mg Q4H PRN IV 01/05/18 00:45 01/19/18 00:44 01/05/18 15:50 4 MG Alprazolam (Xanax Tab) 0.5 mg HS PRN PO 01/05/18 01:00 02/04/18 00:59 Aspirin (Ecotrin Tab) 81 mg DAILY PO 01/05/18 09:00 02/04/18 08:59 01/06/18 08:39 81 MG Atorvastatin Calcium (Lipitor Tab) 80 mg DAILY PO 01/05/18 09:00 02/04/18 08:59 01/06/18 08:39 80 MG Dexamethasone Sodium Phosphate (Decadron Inj) 4 mg UD PRN IM 01/05/18 01:00 02/04/18 00:59 Fluoxetine HCl (Prozac Cap) 20 mg QAM PO 01/05/18 09:00 02/04/18 08:59 01/06/18 08:36 20 MG Hydroxyzine HCl (Vistaril Tab) 50 mg HS PRN PO 01/05/18 01:00 02/04/18 00:59 Isosorbide Mononitrate (Imdur Ext Rel Tab) 60 mg QAM PO 01/05/18 09:00 02/04/18 08:59 01/06/18 08:39 60 MG Lisinopril (Zestril Tab) 5 mg DAILY PO 01/05/18 09:00 02/04/18 08:59 01/06/18 08:36 5 MG Mirtazapine (Remeron Tab) 30 mg HS PRN PO 01/05/18 01:00 02/04/18 00:59 Ranitidine HCl (zANTac TAB) 150 mg BID PO 01/05/18 09:00 02/04/18 08:59 01/06/18 08:39 150 MG Cholestyramine Resin (Questran Powder Light) 4 gm BID@1000,2200 PO 01/05/18 10:00 02/04/18 09:59 01/05/18 09:23 4 GM Amylase/Lipase/ Protease (Pancreaze (Lipase 10,500U) Cap) 4 cap TIDM PO 01/05/18 08:30 02/04/18 08:29 01/06/18 08:40 4 CAP Diphenoxylate HCl/ Atropine (Lomotil Tab) 1 tab AC PO 01/05/18 12:00 02/04/18 11:59 01/06/18 08:36 1 TAB Hydrocortisone (Cortef Tab) 10 mg HS PO 01/05/18 21:00 02/04/18 20:59 01/05/18 21:09 10 MG Hydrocortisone (Cortef Tab) 10 mg QD@1200 PO 01/06/18 12:00 02/05/18 11:59 Hydrocortisone (Cortef Tab) 25 mg QAM PO 01/06/18 09:00 02/05/18 08:59 01/06/18 08:37 25 MG Objective Vital Signs Date Time Temp Pulse Resp B/P (MAP) Pulse Ox O2 Delivery O2 Flow Rate FiO2 01/06/18 08:34 57 128/78 (95) 74 137/82 (100) 72 124/77 (93) 01/06/18 08:08 99 Room Air 01/06/18 08:00 Room Air 01/06/18 07:58 36.6 70 20 132/84 (100) 99 Room Air 01/06/18 07:17 59 16 98 Room Air 01/06/18 05:52 136/80 (98) 127/80 (96) 01/05/18 23:45 Room Air 01/05/18 22:47 36.6 97 16 143/76 (98) 94 Room Air 01/05/18 20:12 72 16 94 Room Air 01/05/18 15:42 68 16 94 Room Air 01/05/18 15:30 Room Air 01/05/18 14:59 36.4 64 16 121/74 (90) 92 Room Air Physical Exam General Appearance: no apparent distress Eyes: PERRL ENT: hearing grossly normal Neck: supple, trachea midline Respiratory/Chest: chest non-tender, lungs clear, normal breath sounds, no respiratory distress, no accessory muscle use Cardiovascular: regular rate, rhythm, no gallop, no JVD Abdomen: normal bowel sounds, non tender, soft, no organomegaly, no pulsatile mass Neurologic/Psych: alert, normal mood/affect, oriented x 3 Skin: no jaundice, warm/dry, no rash Laboratory Results Last 24 Hours Test 01/05/18 12:26 01/05/18 16:52 01/05/18 20:35 01/06/18 08:31 Bedside Glucose 237 mg/dl 222 mg/dl 174 mg/dl White Blood Count 16.90 K/uL Red Blood Count 3.85 M/uL Hemoglobin 11.5 g/dL Hematocrit 35.0 % Mean Corpuscular Volume 90.9 fL Mean Corpuscular Hemoglobin 29.9 pg Mean Corpuscular Hemoglobin Concent 32.9 g/dl RDW Standard Deviation 53.4 fL RDW Coefficient of Variation 16.1 % Platelet Count 146 K/uL Mean Platelet Volume 10.4 fL Assessment and Plan 62 year old male with acute on chronic diarrhea. He had a recent fever and sick family contact. C-diff is negative, culture pending. Most likely this represents a viral gastroenteritis. He is symptomatically improving and notes he is feeling back at baseline. Continue supportive care by primary services: IV fluids, electrolyte replacement. Lomotil TID Continue other outpatient medications FODMAPs diet No GI indication for antibiotics No role for further diagnostic imaging or GI evaluation. GI to sign off. Pending morning labs, no GI contraindication to discharge. I have seen , examined and agree with the plan as outlined by Ms. Tiesha Sebastianelli, [employer] as above. -exam reveals soft abd
[2018-01-06] MEDS: INSULIN ASPART 100 UNITS/ML 3 ML PEN SC SCH ×2 (09:29→12:00)
[2018-01-06 09:37] LABS: CALCIUM 8.4 mg/dl (8.5-10.1); CREATININE 1.27 mg/dl (0.60-1.40); PHOSPHORUS 1.9 mg/dl (2.5-4.9); POTASSIUM 3.9 mmol/L (3.5-5.1)
--- NOTE | 2018-01-06 11:04 | Pharmacy Progress Note ---
Pharmacy Glycemic Short Note 2 Date of Service Jan 06, 2018. OUTPATIENT ANTIDIABETIC REGIMEN: * Lantus 10-20 units daily * Humalog per scale AC * A1c = 7% on 01/06/18 Item Value Date Time Random Glucose 194 mg/dl H 01/06/18 0831 Bedside Glucose 174 mg/dl H 01/05/18 2035 Bedside Glucose 222 mg/dl H 01/05/18 1652 Bedside Glucose 237 mg/dl H 01/05/18 1226 Bedside Glucose 195 mg/dl H 01/05/18 0828 Random Glucose 172 mg/dl H 01/05/18 0700 Bedside Glucose 115 mg/dl H 01/05/18 0217 Random Glucose 212 mg/dl H 01/04/18 2100 ASSESSMENT: * 62yo T2DM male well known to pharmacy from previous admissions/glycemic consults * Pt typically requires ~ 30-40 units of insulin per day while admitted, however , pt was ordered ordered RTC high dose IV solumedrol 40mg IV Q6hrs for possible COPD exacerbation. * Sq basal bolus insulin regimen dosing increased for high dose steroids. Initiated regimen based on ~ 70-80 units/day for steroid induced hyperglycemia since an additional ~ 0.4 units/kg/day (31 units) is typically needed on top of outpatient dosing for severe steroid induced hyperglycemia - this equates to weight and a stress of 3 dosing per [facility] insulin calculator * Solumedrol stopped yesterday - breathing improved with nebs. Outpatient hydrocortisone dosing resumed today. * Should see an improvement in BSGs once solu-medrol wears off. Will empirically decrease sq insulin regimen back to outpatient dosing to prevent hypoglycemia. PLAN FOR INPATIENT GLYCEMIC CONTROL: * Basal insulin: decrease dosing for d/c solumedrol * Resume outpatient dosing of 10-20 units daily. Will start with Lantus 10 units daily and titrate based on BSG trends * Bolus insulin: loosen parameters for d/c solumedrol * NovoLog per scale ACHS or Q6hrs while NPO * Goal Range: Low 120 mg/dL - High 160 mg/dL * Correction Factor: 25 mg/dL/unit * Nutritional / Prandial insulin per carb ratio of 1 unit per 10 grams CHO consumed PLAN FOR DISCHARGE: * A1c is in goal range. No changes needed to outpatient regimen
--- NOTE | 2018-01-06 11:27 | Progress Note ---
Subjective Date of Service: Jan 06, 2018. Subjective Pt evaluation today including: conversation w/ patient, physical exam, lab review, review of studies, review of inpatient medication list Saw/examined the patient in room 352 No problems/issues to note today; he has no abdominal pain no shortness of breath, no chest pain. Problem List Medical Problems: (1) Colitis Status: Acute (2) Dehydration Status: Acute (3) Diarrhea Status: Acute (4) Diarrhea Status: Acute (5) Failure of outpatient treatment Status: Acute (6) Hypokalemia Status: Acute (7) Hypomagnesemia Status: Acute (8) Hypotension Status: Acute (9) Hypotension Status: Acute (10) Left sided abdominal pain Status: Acute (11) Pyelonephritis Status: Acute (12) Renal failure, acute Status: Acute (13) Sepsis Status: Acute (14) Sepsis Status: Acute Review of Systems Constitutional: No fever, No chills Respiratory: No cough, No sputum, No shortness of breath Cardiac: No chest pain Abdomen: No pain, No nausea, No vomiting, No diarrhea Medications Current Inpatient Medications Medications (Trade) Dose Ordered Sig/Tisha Route Start Time Stop Time Status Last Admin Dose Admin Heparin Sodium (Porcine) (Heparin Sq 5000 Unit/0.5ml) 5,000 unit Q8H SQ 01/05/18 06:00 02/04/18 05:59 01/06/18 06:30 5,000 UNIT Acetaminophen (Tylenol Tab) 650 mg Q4H PRN PO 01/05/18 00:45 02/04/18 00:44 Ondansetron HCl (Zofran Inj) 4 mg Q6H PRN IV 01/05/18 00:45 02/04/18 00:44 Insulin Aspart (novoLOG ASPART) SLIDING SCALE If C... ACHS SC 01/05/18 02:00 02/04/18 01:59 01/06/18 09:29 9 UNITS Glucose (Glucose 40% Gel) 15-30 GRAMS 15 GRAMS... UD PRN PO 01/05/18 00:45 02/04/18 00:44 Glucose (Glucose Chew Tab) 4-8 Tablets 4 Tabl... UD PRN PO 01/05/18 00:45 02/04/18 00:44 Dextrose (Dextrose 50% 50ML Syringe) 25-50ML OF 50% DW IV FOR... UD PRN IV 01/05/18 00:45 02/04/18 00:44 Glucagon (Glucagon Inj) 1 mg UD PRN SQ 01/05/18 00:45 02/04/18 00:44 Miscellaneous Information (Consult Glycemic Management Pharmacy) 1 ea UD PRN N/A 01/05/18 01:30 02/04/18 01:29 Albuterol/ Ipratropium (Duoneb) 3 ml QIDR INH 01/05/18 08:00 02/04/18 07:59 01/06/18 07:17 3 ML Oxycodone HCl (Roxicodone Immediate Rel Tab) 5 mg Q4H PRN PO 01/05/18 00:45 01/19/18 00:44 01/05/18 03:50 5 MG Morphine Sulfate (MoRPHine SULFATE INJ) 4 mg Q4H PRN IV 01/05/18 00:45 01/19/18 00:44 01/05/18 15:50 4 MG Alprazolam (Xanax Tab) 0.5 mg HS PRN PO 01/05/18 01:00 02/04/18 00:59 Aspirin (Ecotrin Tab) 81 mg DAILY PO 01/05/18 09:00 02/04/18 08:59 01/06/18 08:39 81 MG Atorvastatin Calcium (Lipitor Tab) 80 mg DAILY PO 01/05/18 09:00 02/04/18 08:59 01/06/18 08:39 80 MG Dexamethasone Sodium Phosphate (Decadron Inj) 4 mg UD PRN IM 01/05/18 01:00 02/04/18 00:59 Fluoxetine HCl (Prozac Cap) 20 mg QAM PO 01/05/18 09:00 02/04/18 08:59 01/06/18 08:36 20 MG Hydroxyzine HCl (Vistaril Tab) 50 mg HS PRN PO 01/05/18 01:00 02/04/18 00:59 Isosorbide Mononitrate (Imdur Ext Rel Tab) 60 mg QAM PO 01/05/18 09:00 02/04/18 08:59 01/06/18 08:39 60 MG Lisinopril (Zestril Tab) 5 mg DAILY PO 01/05/18 09:00 02/04/18 08:59 01/06/18 08:36 5 MG Mirtazapine (Remeron Tab) 30 mg HS PRN PO 01/05/18 01:00 02/04/18 00:59 Ranitidine HCl (zANTac TAB) 150 mg BID PO 01/05/18 09:00 02/04/18 08:59 01/06/18 08:39 150 MG Cholestyramine Resin (Questran Powder Light) 4 gm BID@1000,2200 PO 01/05/18 10:00 02/04/18 09:59 01/05/18 09:23 4 GM Amylase/Lipase/ Protease (Pancreaze (Lipase 10,500U) Cap) 4 cap TIDM PO 01/05/18 08:30 02/04/18 08:29 01/06/18 08:40 4 CAP Diphenoxylate HCl/ Atropine (Lomotil Tab) 1 tab AC PO 01/05/18 12:00 02/04/18 11:59 01/06/18 08:36 1 TAB Hydrocortisone (Cortef Tab) 10 mg HS PO 01/05/18 21:00 02/04/18 20:59 01/05/18 21:09 10 MG Hydrocortisone (Cortef Tab) 10 mg QD@1200 PO 01/06/18 12:00 02/05/18 11:59 Hydrocortisone (Cortef Tab) 25 mg QAM PO 01/06/18 09:00 02/05/18 08:59 01/06/18 08:37 25 MG Insulin Glargine (Lantus Solostar Pen) 10 units DAILY SC 01/06/18 12:00 02/05/18 11:59 Objective Vital Signs Date Time Temp Pulse Resp B/P (MAP) Pulse Ox O2 Delivery O2 Flow Rate FiO2 01/06/18 08:34 57 128/78 (95) 74 137/82 (100) 72 124/77 (93) 01/06/18 08:08 99 Room Air 01/06/18 08:00 Room Air 01/06/18 07:58 36.6 70 20 132/84 (100) 99 Room Air 01/06/18 07:17 59 16 98 Room Air 01/06/18 05:52 136/80 (98) 127/80 (96) 01/05/18 23:45 Room Air 01/05/18 22:47 36.6 97 16 143/76 (98) 94 Room Air 01/05/18 20:12 72 16 94 Room Air 01/05/18 15:42 68 16 94 Room Air 01/05/18 15:30 Room Air 01/05/18 14:59 36.4 64 16 121/74 (90) 92 Room Air Physical Exam General Appearance: no apparent distress Respiratory/Chest: chest non-tender, lungs clear, normal breath sounds, no respiratory distress, no accessory muscle use Cardiovascular: regular rate, rhythm, no edema, no murmur Abdomen: normal bowel sounds, non tender, soft Laboratory Results Last 24 Hours Test 01/05/18 12:26 01/05/18 16:52 01/05/18 20:35 01/06/18 08:31 Bedside Glucose 237 mg/dl 222 mg/dl 174 mg/dl White Blood Count 16.90 K/uL Red Blood Count 3.85 M/uL Hemoglobin 11.5 g/dL Hematocrit 35.0 % Mean Corpuscular Volume 90.9 fL Mean Corpuscular Hemoglobin 29.9 pg Mean Corpuscular Hemoglobin Concent 32.9 g/dl RDW Standard Deviation 53.4 fL RDW Coefficient of Variation 16.1 % Platelet Count 146 K/uL Mean Platelet Volume 10.4 fL Sodium Level 139 mmol/L Potassium Level 3.9 mmol/L Chloride Level 105 mmol/L Carbon Dioxide Level 24 mmol/L Anion Gap 10.0 mmol/L Blood Urea Nitrogen 16 mg/dl Creatinine 1.27 mg/dl Est Creatinine Clear Calc Drug Dose 60.3 ml/min Estimated GFR () 69.7 Estimated GFR (Non- 60.2 BUN/Creatinine Ratio 12.4 Random Glucose 194 mg/dl Estimated Average Glucose 154 mg/dl Hemoglobin A1c 7.0 % Calcium Level 8.4 mg/dl Phosphorus Level 1.9 mg/dl Magnesium Level 2.1 mg/dl Assessment and Plan This is a 62 year old male with a PMH of Bradley's disease, COPD, HTN, depression/anxiety, hx. of microscopic colitis/recurrent C. diff - presents with fevers/shakiness/abdominal pain. Nonspecific Enteritis, likely Viral 01/06 will d/c home today with Lomotil TID with meals no antibiotics necessary white count elevation likely secondary to long-term steroid use 01/05 appreciate GI input will increase Lomotil to three times daily with meals IVFs Zofran PRN stop antibiotics C. diff is negative COPD does not appear to be in exacerbation possibly improved due to nebulizers continue nebs as needed stop IV solu-medrol and continue hydrocortisone Acute Kidney Injury - resolved secondary to viral gastroenteritis improved with IVFs Bradley's continue hydrocortisone HTN blood pressure stable continue Lisinopril Hx. of [place] continue aspirin, statin no current issues with chest pain/pressure DVT ppx subq heparin FULL CODE
--- NOTE | 2018-01-06 11:34 | Discharge Instructions ---
Discharge Instructions Date of Service Jan 06, 2018. Admission Reason for Admission: Abdominal Pain Discharge Discharge Diagnosis / Problem: Abdominal Pain, likely Viral Gastroenteritis Discharge Goals Goal(s): Decrease discomfort, Improve function, Diagnostic testing, Therapeutic intervention Activity Recommendations Activity Limitations: resume your previous activity . Instructions / Follow-Up Instructions / Follow-Up Please follow-up with Dr. Lin - as scheduled later today (01/06) Current Hospital Diet Patient's current hospital diet: AHA Diet (Heart Healthy), Diabetes Type 2 Diet Discharge Diet Recommended Diet: AHA Diet (Heart Healthy), Diabetes Type 2 Diet Pending Studies Studies pending at discharge: no Laboratory Results Hemoglobin A1c Test 01/06/18 08:31 Range/Units Estimated Average Glucose 154 mg/dl Hemoglobin A1c 7.0 H 4.5-5.6 % Medical Emergencies . Who to Call and When: Medical Emergencies: If at any time you feel your situation is an emergency, please call 911 immediately. . Non-Emergent Contact Non-Emergency issues call your: Primary Care Provider . . "Provider Documentation" section prepared by Suzan Quintero. . VTE Core Measure Inpt VTE Proph given/why not?: Unfractionated heparin SQ
--- NOTE | 2018-01-06 11:39 | Discharge Summary ---
Discharge Summary Date of Service Jan 06, 2018. Discharge Summary Admission Date: Jan 04, 2018 at 23:47 Discharge Date: Jan 06, 2018 Discharge Disposition: Home Principal Diagnosis: Viral Gastroenteritis - resolved Acute Kidney Injury - resolved Matthew's COPD Hx. of [place] Medication Reconciliation Continued Medications: Albuterol Hfa (Ventolin Hfa) 200 Puffs/60856 Mcg Aers 2 PUFFS INH Q6H PRN for Wheezing, INHALER Albuterol Sulf (Proventil 0.083% 2.5MG/3ML) 2.5 Mg/3 Ml Nebu 2.5 MG INH QID PRN for Wheezing, EA Alprazolam (Alprazolam) 0.5 Mg Tab 0.5 MG PO HS PRN for Anxiety/Agitation Aspirin (Aspirin Ec) 81 Mg Tab 81 MG PO DAILY Atorvastatin (Lipitor) 80 Mg Tab 80 MG PO DAILY, TAB Cholestyramine (Questran) 4 Gm Pow 4 GM PO BID Dexamethasone Sod Phos (Dexamethasone Sodium Phos) 4 Mg/Ml Inj 1 ML IM UD PRN for Gove Disease DIRECTED FOR EMERGENCY TREATMENT Diphenoxylate/Atropine (Diphenoxylate/Atropine 2.5-0.025 mg) 1 Tab Tab 1 TAB PO TID Fluoxetine HCl (Fluoxetine HCl) 20 Mg Cap 20 MG PO QAM Hydrocortisone (Cortef) 10 Mg Tab 25 MG PO QAM, TAB Hydrocortisone (Cortef) 10 Mg Tab 10 MG PO QD@1200, TAB TAKE THIS MEDICATION WITH LUNCH Hydrocortisone (Cortef) 10 Mg Tab 10 MG PO HS, TAB Hydroxyzine Hcl (Atarax) 50 Mg Tab 50 MG PO HS PRN for Insomnia, TAB Insulin Glargine (Lantus) 100 Unit/Ml Inj 10-20 UNITS SC UD, VIAL USE DIRECTED Insulin Lispro (Human) (Humalog) 100 Unit/Ml Inj 1 DOSE SC ACHS COVERAGE DIRECTED BY SLIDING SCALE Isosorbide Mononitrate Ext Rel (Imdur Ext Rel) 60 Mg Ertab 60 MG PO QAM, TAB Lisinopril (Lisinopril) 5 Mg Tab 5 MG PO DAILY Mirtazapine (Remeron) 30 Mg Tab 30 MG PO HS PRN for Sleep Pancrelipase (Lipase-Protease- (Creon) 1 Cap Cap 2 CAP PO TIDM 1 capsule with meals Ranitidine HCl (Ranitidine HCl) 150 Mg Tab 150 MG PO BID Admission Information HPI (per Admitting provider): 62 yo M presents with worsening abdominal pain x 2 days associated with a fever , weakness wtih dizziness and shakiness when he satnds. He was recently admitted 4 weeks ago for the flu. He reports that his grandson is ill. He denies blood in the stool. He admits to some worsening of his chronic diarrhea. He is specifically asking for pain medication not 10 minutes after receiving a dose in the ER as I was leaving the room. He is not on narcotics for pain at home. Suspect pain-med seeking behavior as has been the case before with Dilaudid. On abdominal exam I hadn't but grazed his skin and he was flinching and jumping away all over his abdomen despite reports of localized abdominal pain in his LLQ. He admits to some productive cough and dyspnea. Some intermittent chest pain on the right side that is not currently present. Physical Exam (per Admitting): General Appearance: WD/WN, + mild distress Head: normocephalic, atraumatic Eyes: normal inspection, PERRL, sclerae normal ENT: hearing grossly normal, pharynx normal, + pertinent finding (MMM) Neck: supple, trachea midline Respiratory/Chest: lungs clear, normal breath sounds, no respiratory distress, no accessory muscle use Cardiovascular: regular rate, rhythm, no edema, no gallop, no JVD, no murmur , normal peripheral pulses Abdomen/GI: normal bowel sounds, soft, + tenderness Extremities/Musculoskelatal: normal inspection, no pedal edema Neurologic/Psych: senior manager creative services II-XII nml as tested, no motor/sensory deficits, alert , normal mood/affect, oriented x 3 Skin: normal color, warm/dry, no rash Hospital Course This is a 62 year old male with a PMH of Gove's disease, COPD, HTN, depression/anxiety, hx. of microscopic colitis/recurrent C. diff - presents with fevers/shakiness/abdominal pain. Nonspecific Enteritis, likely Viral 01/06 will d/c home today with Lomotil TID with meals no antibiotics necessary white count elevation likely secondary to long-term steroid use 01/05 appreciate GI input will increase Lomotil to three times daily with meals IVFs Zofran PRN stop antibiotics C. diff is negative COPD does not appear to be in exacerbation possibly improved due to nebulizers continue nebs as needed stop IV solu-medrol and continue hydrocortisone Acute Kidney Injury - resolved secondary to viral gastroenteritis improved with IVFs Gove's continue hydrocortisone HTN blood pressure stable continue Lisinopril Hx. of [place] continue aspirin, statin no current issues with chest pain/pressure DVT ppx subq heparin FULL CODE Total time spent on discharge = 25 minutes This includes examination of the patient, discharge planning, medication reconciliation, and communication with other providers. Discharge Instructions Please follow-up with Dr. Lin - as scheduled later today (01/06)
[2018-01-06] MEDS ORDERED: INSULIN GLARGINE SOLOSTAR 100 UNITS/ML 3 ML PEN SC SCH (12:00)
== END 2018-01-06 13:39 | disposition home or self-care (01) | DRG 683 ==
LOC: C.EDB 19:02 → C.MSW 23:47 → ENRESERV 23:59
PROVIDERS: ADMIT Hospitalist; ATTEND Family Medicine
DX: N17.9 Acute kidney failure, unspecified (principal); A08.4 Viral intestinal infection, unspecified; E27.1 Primary adrenocortical insufficiency; E86.0 Dehydration; I25.10 Atherosclerotic heart disease of native coronary artery without angina pectoris; J44.9 Chronic obstructive pulmonary disease, unspecified; E11.9 Type 2 diabetes mellitus without complications; E78.5 Hyperlipidemia, unspecified; I10 Essential (primary) hypertension; F17.200 Nicotine dependence, unspecified, uncomplicated; Z79.4 Long term (current) use of insulin; I25.2 Old myocardial infarction; Z79.82 Long term (current) use of aspirin; E87.6 Hypokalemia; E83.42 Hypomagnesemia; Z95.5 Presence of coronary angioplasty implant and graft; F41.8 Other specified anxiety disorders

== ENCOUNTER 2018-03-31 16:08 | Emergency (ER) | payer OTHER ==
[~2018-03-31] VITALS: Ht 172.7 cm; Wt 77.2 kg
[~2018-03-31 16:08] MED LIST changes: +ALBINS/ INH; -ASPCH81X PO; +ASPI81TA28 PO; +DIPH-416 PO; -DXY100 PO; +FLUO20CA36 PO; -FLUT1INH PO; -INSDGI SC; +INSDGI SQ; -INSU100I SC; +INSU100I SQ; -IPRASOL4 INH; -LMTHP PO; +LSN5 PO; -MCRK20 PO; -MIRT30TA PO; +MIRT30TA3 PO; +PANC6000 PO; +RANI150T2 PO; -RANI150T3 PO; -SLWMEC PO; -SPRIN/30 INH; -TMF75 PO
[2018-03-31 16:42] VITALS: TEMP 36.7; Ht 172.7 cm; Wt 77.2 kg
[2018-03-31] MEDS ORDERED: SODIUM CHLORIDE 0.9% 1000ML 1,000 ML IV STA (17:15)
[2018-03-31] MEDS ORDERED: SODIUM CHLORIDE 0.9% 500ML 500 ML IV STA (17:15)
--- NOTE | 2018-03-31 17:21 | EMERGENCY ROOM VISIT NOTE ---
History Report prepared by Tisha: Darren Bernal Under the Supervision of: Dr. Mayte Flores M.D. First contact with patient: 17:00 Chief Complaint: HYPOTENSION Stated Complaint: LOW BP,ABD PAIN,WEAK History of Present Illness The patient is a 62 year old male with a history of collagenous colitis, C. difficile, and diabetes who presents to the Emergency Room with complaints of a persistent illness that started 2 days ago. He states that he has no strength and feels exhausted. He states that he has been a bit short of breath today and he says that he has been having some abdominal pain. He adds that he has been having some chills. The patient notes that he started having diarrhea 2 days ago , but per the patient's , the patient usually gets diarrhea when he is stressed. The patient had to go to [place] a week ago because his father is terminally ill, and they just returned yesterday. The patient did start feeling ill when he was in [place]. He says that he was seen at [facility] office for his weakness earlier today, and his blood pressure was noted to be abnormal , as it was around 178/70 when he was sitting, and went down to 100/60 when he stood up. His heart rate also went up "quite a bit" when he stood up. The patient was then sent here for evaluation. He says that he has had 2 heart attacks in the past with 2 stent placements. He is a smoker. The patient denies any chest pain. Source of History: patient, spouse/significant other Onset: 2 days ago Position: other (global) Quality: other (illness) Timing: other (persistent) Associated Symptoms: + chills, + SOB, + abdominal pain, + diarrhea, + weakness, No chest pain Note: Associated symptoms: Low blood pressure with standing. Review of Systems See HPI for pertinent positives & negatives. A total of 10 systems reviewed and were otherwise negative. Past Medical & Surgical Medical Problems: (1) Abdominal pain (2) Addisons disease (3) C. difficile diarrhea (4) CAD (coronary artery disease) (5) Collagenous colitis (6) COPD (chronic obstructive pulmonary disease) (7) Depression with anxiety (8) DM type 2 (diabetes mellitus, type 2) (9) HLD (hyperlipidemia) (10) HTN (hypertension) Family History Diabetes mellitus FATHER MOTHER Social History Smoking Status: Current Every Day Smoker Alcohol Use: occasionally Drug Use: none Marital Status: Housing Status: lives with family Occupation Status: retired Current/Historical Medications Scheduled Aspirin (Aspirin Ec), 81 MG PO DAILY Atorvastatin (Lipitor), 80 MG PO DAILY Cholestyramine (Questran), 4 GM PO BID Diphenoxylate/Atropine (Diphenoxylate/Atropine 2.5-0.025 mg), 1 TAB PO TID Fluoxetine HCl (Fluoxetine HCl), 20 MG PO QAM Hydrocortisone (Cortef), 25 MG PO QAM Hydrocortisone (Cortef), 10 MG PO QD@1200 Hydrocortisone (Cortef), 10 MG PO HS Insulin Glargine (Lantus), 10-20 UNITS SQ QPM Insulin Lispro (Human) (Humalog), 1 DOSE SQ ACHS Isosorbide Mononitrate Ext Rel (Imdur Ext Rel), 60 MG PO QAM Lisinopril (Lisinopril), 5 MG PO DAILY Pancrelipase (Lipase-Protease- (Creon), 2 CAP PO TIDM Ranitidine HCl (Ranitidine HCl), 150 MG PO BID Scheduled PRN Albuterol Hfa (Ventolin Hfa), 2 PUFFS INH Q6H PRN for Wheezing Albuterol Sulf (Proventil 0.083% 2.5MG/3ML), 2.5 MG INH QID PRN for Wheezing Alprazolam (Alprazolam), 0.5 MG PO HS PRN for Anxiety/Agitation Dexamethasone Sod Phos (Dexamethasone Sodium Phos), 1 ML IM UD PRN for Mccormick Disease Hydrocodone/Acetaminophen 7.5MG/325MG ([place] 7.5MG/325MG), 1 TAB PO Q6 PRN for Pain Hydroxyzine Hcl (Atarax), 50 MG PO HS PRN for Insomnia Mirtazapine (Remeron), 30 MG PO HS PRN for Sleep Allergies Coded Allergies: Azathioprine (Verified Adverse Reaction, Unknown, RENAL COMPLICATIONS, 11/30) Physical Exam Vital Signs Date Time Temp Pulse Resp B/P (MAP) Pulse Ox O2 Delivery O2 Flow Rate FiO2 03/31/18 20:25 88 18 116/74 96 03/31/18 19:57 88 18 116/74 96 Room Air 03/31/18 19:18 77 105/62 94 Room Air 90 105/70 96 99/66 03/31/18 18:09 87 18 110/68 96 Room Air 03/31/18 17:42 87 03/31/18 16:42 36.7 107 18 118/81 97 Room Air Physical Exam Vital signs reviewed. General: Chronically ill-appearing 62 year old male, in no significant distress. HEENT: No scleral icterus, PERRLA, neck supple. Atraumatic. Cardiovascular: Regular rate and rhythm, no extra sounds. Pulmonary: Clear to auscultation bilaterally, normal work of breathing. Abdomen: Soft, tender left upper and lower quadrant, nondistended, positive bowel sounds. Musculoskeletal: Atraumatic, no peripheral edema. Neurologic: Patient awake alert and oriented x 3 Skin: Warm, dry, no rash Medical Decision & Procedures ER Provider Diagnostic Interpretation: X-ray results as stated below per interpretation by me and the radiologist: ABDOMEN 2VIEW W/PA CHEST RTN CLINICAL HISTORY: 62 years-old Male presenting with diarrhea, orthostatic. TECHNIQUE: PA view of the chest and supine and upright views of the abdomen were obtained. COMPARISON: 01/04/2018. FINDINGS: Atherosclerosis of the aortic arch. Cardiac silhouette normal in size. No focal opacity. No large effusion or pneumothorax. Nonobstructive bowel gas pattern. No gross pneumoperitoneum. Allowing for bowel gas and stool, no calcifications to suggest nephrolithiasis. Atherosclerosis. Stable distribution of pelvic phleboliths. Osseous structures normal. IMPRESSION: 1. No acute cardiopulmonary disease. 2. No radiographic evidence of acute intra-abdominal pathology. Electronically signed by: Shiraz Mendiola M.D. 03/31/2018 6:38 PM Dictated Date/Time: 03/31/2018 6:37 PM Laboratory Results 03/31/18 17:02 Red Blood Count 4.54, Mean Corpuscular Volume 88.3, Mean Corpuscular Hemoglobin 30.2, Mean Corpuscular Hemoglobin Concent 34.2, Mean Platelet Volume 10.0, Neutrophils (%) (Auto) 82.8, Lymphocytes (%) (Auto) 7.2, Monocytes (%) (Auto) 8.7, Eosinophils (%) (Auto) 0.7, Basophils (%) (Auto) 0.1, Neutrophils # (Auto) 10.82, Lymphocytes # (Auto) 0.94, Monocytes # (Auto) 1.13, Eosinophils # (Auto) 0.09, Basophils # (Auto) 0.01 03/31/18 17:02 Test 03/31/18 17:02 03/31/18 17:39 White Blood Count 13.06 K/uL (4.8-10.8) Red Blood Count 4.54 M/uL (4.7-6.1) Hemoglobin 13.7 g/dL (14.0-18.0) Hematocrit 40.1 % (42-52) Mean Corpuscular Volume 88.3 fL (80-100) Mean Corpuscular Hemoglobin 30.2 pg (25-34) Mean Corpuscular Hemoglobin Concent 34.2 g/dl (32-36) Platelet Count 185 K/uL (130-400) Mean Platelet Volume 10.0 fL (7.4-10.4) Neutrophils (%) (Auto) 82.8 % Lymphocytes (%) (Auto) 7.2 % Monocytes (%) (Auto) 8.7 % Eosinophils (%) (Auto) 0.7 % Basophils (%) (Auto) 0.1 % Neutrophils # (Auto) 10.82 K/uL (1.4-6.5) Lymphocytes # (Auto) 0.94 K/uL (1.2-3.4) Monocytes # (Auto) 1.13 K/uL (0.11-0.59) Eosinophils # (Auto) 0.09 K/uL (0-0.5) Basophils # (Auto) 0.01 K/uL (0-0.2) RDW Standard Deviation 52.5 fL (36.4-46.3) RDW Coefficient of Variation 16.4 % (11.5-14.5) Immature Granulocyte % (Auto) 0.5 % Immature Granulocyte # (Auto) 0.07 K/uL (0.00-0.02) Anion Gap 7.0 mmol/L (3-11) Est Creatinine Clear Calc Drug Dose 44.4 ml/min Estimated GFR () 50.1 Estimated GFR (Non- 43.2 BUN/Creatinine Ratio 12.3 (10-20) Calcium Level 9.3 mg/dl (8.5-10.1) Phosphorus Level 2.3 mg/dl (2.5-4.9) Magnesium Level 1.9 mg/dl (1.8-2.4) Total Bilirubin 0.7 mg/dl (0.2-1) Direct Bilirubin 0.2 mg/dl (0-0.2) Aspartate Amino Transf (AST/SGOT) 32 U/L (15-37) Alanine Aminotransferase (ALT/SGPT) 35 U/L (12-78) Alkaline Phosphatase 77 U/L (45-117) Troponin I < 0.015 ng/ml (0-0.045) Total Protein 7.2 gm/dl (6.4-8.2) Albumin 3.4 gm/dl (3.4-5.0) Lipase 135 U/L (73-393) Thyroid Stimulating Hormone (TSH) 0.348 uIu/ml (0.300-4.500) Bedside Lactic Acid Venous 1.22 mmol/L (0.90-1.70) Laboratory results per my review. Medications Administered Medications (Trade) Dose Ordered Sig/Tisha Route Start Time Stop Time Status Last Admin Dose Admin Sodium Chloride 500 ml @ 999 mls/hr Q31M STAT IV 03/31/18 17:15 03/31/18 17:45 DC 03/31/18 17:38 999 MLS/HR Sodium Chloride 1,000 ml @ 200 mls/hr Q5H STAT IV 03/31/18 17:15 03/31/18 20:36 DC 03/31/18 18:09 200 MLS/HR Fentanyl Citrate (Fentanyl Inj) 50 mcg NOW ONCE IV 03/31/18 18:45 03/31/18 18:46 DC 03/31/18 19:16 50 MCG Hydrocortisone Sodium Succinate (Solu-Cortef IV) 100 mg NOW STAT IV 03/31/18 19:53 03/31/18 19:54 DC 03/31/18 20:04 100 MG Acetaminophen/ Hydrocodone Bitart ([place] 7.5/325 Tab) 1 tab NOW STAT PO 03/31/18 19:56 03/31/18 19:57 DC 03/31/18 20:05 1 TAB ECG Per My Interpretation Indication: weakness Rate (beats per minute): 85 Rhythm: normal sinus Findings: no acute ischemic change, no ectopy, other (QTC is 430) ED Course 1715: Past medical records reviewed. The patient was evaluated in room A9B. A complete history and physical examination was performed. 1714: NSS 1000 ml @ 200 mls/hr IV, NSS 500 ml @ 999 mls/hr IV. 1844: Fentanyl Inj 50 mcg IV. 1952: Solu-Cortef IV 100 mg. 1955: [place] 7.5/325 Tab 1 tab PO. 1957: Upon reevaluation, the patient appeared to have improvement of his symptoms. I discussed findings with him. He verbalized agreement of the treatment plan. He was discharged home. Medical Decision Differential diagnosis: Etiologies such as metabolic, infection, hypo/hyperglycemia, electrolyte abnormalities, cardiac sources, intracerebral event, toxicologic, neurologic, as well as others were entertained. This patient was evaluated and appeared to be in no significant distress. IV access was obtained and laboratory work was drawn. Patient was placed on secured entrance monitor and found to be in a normal sinus rhythm. Orthostatic vital signs were performed and are negative. Patient was hydrated with normal saline solution. Abdominal x-ray series is fairly unrevealing. Patient states this pain is similar to his previous pain. 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 Laboratory work reveals a mild leukocytosis. Patient's electrolytes are within normal range. Creatinine is 1.67, which is above his baseline of 1.2. Patient was instructed to drink plenty of clear fluids. He was not able to provide a stool specimen today. He is under a great deal of stress with his dying father in [place] and will likely need to make a second trip within the next week or so. He has are comfortable with the plan for discharge. He will follow-up with his physician closely within the next several days. He will return to the ED immediately for worsening of symptoms or any medical concerns. Patient was discharged with a short prescription for [place] and given 1 tablet prior to discharge. [place] Drug Monitoring Program Search Results: patient reviewed within database, no issues identified Medication Reconcilliation Current Medication List: was personally reviewed by me Blood Pressure Screening Patient's blood pressure: Normal blood pressure Impression Primary Impression: Colitis Additional Impression: Dehydration Scribe Attestation The scribe's documentation has been prepared under my direction and personally reviewed by me in its entirety. I confirm that the note above accurately reflects all work, treatment, procedures, and medical decision making performed by me.v Departure Information Dispostion Home / Self-Care Prescriptions Hydrocodone/Acetaminophen 7.5MG/325MG ([place] 7.5MG/325MG) Tab 1 TAB PO Q6 Y for Pain, #20 TAB Prov: Mayte Flores M.D. 03/31/18 Referrals Tony Lin D.O. (PCP) Patient Instructions My [facility] Additional Instructions Diagnosis: Dehydration, colitis Please drink plenty of clear fluids. Continue stress dose steroids until you are feeling improved. [place] 1 tab every 6 hours as needed for severe pain. Follow-up with your primary care physician and gastroenterology this week for reevaluation. Return to the emergency department for worsening of symptoms or any medical concerns. Problem Qualifiers
[2018-03-31 17:40] LABS: BASO % 0.1 %; BASO ABS # 0.01 K/uL (0-0.2); EOS % 0.7 %; EOS ABS # 0.09 K/uL (0-0.5); HEMATOCRIT 40.1 % (42-52); HEMOGLOBIN 13.7 g/dL (14.0-18.0); IG# 0.07 K/uL (0.00-0.02); LYMPH % 7.2 %; LYMPH ABS # 0.94 K/uL (1.2-3.4); MEAN CELL VOLUME 88.3 fL (80-100); MEAN CORPUSCULAR HEMOGLOBIN 30.2 pg (25-34); MEAN CORPUSCULAR HGB CONC 34.2 g/dl (32-36); MONO % 8.7 %; MONO ABS # 1.13 K/uL (0.11-0.59); NEUT % 82.8 %; NEUT ABS # 10.82 K/uL (1.4-6.5); PLATELET COUNT 185 K/uL (130-400); RED CELL DISTRIBUTION WIDTH CV 16.4 % (11.5-14.5); RED CELL DISTRIBUTION WIDTH SD 52.5 fL (36.4-46.3); WHITE BLOOD COUNT 13.06 K/uL (4.8-10.8)
[2018-03-31 17:51] LABS: ALBUMIN 3.4 gm/dl (3.4-5.0); ALT/SGPT 35 U/L (12-78); AST/SGOT 32 U/L (15-37); BLOOD UREA NITROGEN 21 mg/dl (7-18); CALCIUM 9.3 mg/dl (8.5-10.1); CARBON DIOXIDE 25 mmol/L (21-32); CREATININE 1.67 mg/dl (0.60-1.40); GLUCOSE 178 mg/dl (70-99); LIPASE 135 U/L (73-393); POTASSIUM 4.4 mmol/L (3.5-5.1); SODIUM 133 mmol/L (136-145)
[2018-03-31 18:00] LABS: ALKALINE PHOSPHATASE 77 U/L (45-117); PHOSPHORUS 2.3 mg/dl (2.5-4.9); TOTAL PROTEIN 7.2 gm/dl (6.4-8.2)
--- NOTE | 2018-03-31 18:40 | DIAGNOSTIC IMAGING REPORT ---
ABDOMEN 2VIEW W/PA CHEST RTN CLINICAL HISTORY: 62 years-old Male presenting with diarrhea, orthostatic. TECHNIQUE: PA view of the chest and supine and upright views of the abdomen were obtained. COMPARISON: 01/04/2018. FINDINGS: Atherosclerosis of the aortic arch. Cardiac silhouette normal in size. No focal opacity. No large effusion or pneumothorax. Nonobstructive bowel gas pattern. No gross pneumoperitoneum. Allowing for bowel gas and stool, no calcifications to suggest nephrolithiasis. Atherosclerosis. Stable distribution of pelvic phleboliths. Osseous structures normal. IMPRESSION: 1. No acute cardiopulmonary disease. 2. No radiographic evidence of acute intra-abdominal pathology. Electronically signed by: Shiraz Mendiola M.D. 03/31/2018 6:38 PM Dictated Date/Time: 03/31/2018 6:37 PM
[2018-03-31] MEDS ORDERED: FENTANYL CITRATE INJ 50 MCG/1 ML 2 ML VIAL IV ONE (18:45)
[2018-03-31] MEDS ORDERED: HYDROCORTISONE SOD SUCCINATE 100 MG/2 ML VIAL IV STA (19:53)
[2018-03-31] MEDS ORDERED: HYDROCODONE/ACETAMINOPHEN 7.5/325MG TAB PO STA (19:56)
[2018-03-31] MEDS ORDERED: HYDR-3983 PO (20:18)
[2018-03-31 20:25] VITALS: BP 116/74; PULSE 88; O2SAT 96
== END 2018-03-31 20:26 | disposition home or self-care (01) ==
LOC: C.EDB 16:09 → C.EDA 20:26
DX: K52.831 Collagenous colitis (principal); E86.0 Dehydration; E78.5 Hyperlipidemia, unspecified; F32.9 Major depressive disorder, single episode, unspecified; D51.0 Vitamin B12 deficiency anemia due to intrinsic factor deficiency; I10 Essential (primary) hypertension; E11.9 Type 2 diabetes mellitus without complications; Z79.4 Long term (current) use of insulin; Z79.82 Long term (current) use of aspirin; F17.200 Nicotine dependence, unspecified, uncomplicated; Z88.8 Allergy status to other drugs, medicaments and biological substances